=== PATIENT | female | born 1985 | race Caucasian/White ===

== ENCOUNTER → 2020-04-15 08:46 | Outpatient (BNVA) | payer MEDICAID, SELFPAY | PROVIDERS: PCP Internal Medicine; Visit Provider Dietitian, Registered | DX: Z76.89 Persons encountering health services in other specified circumstances (principal) ==

== ENCOUNTER 2020-04-29 06:42 | Outpatient (REF) | payer BC, OTHER, SELFPAY ==
[2020-04-29 08:33] LABS: MANUAL DIFF FLAG NO
[2020-04-29 08:55] LABS: Basophils Percent Auto 0.3 % (0-2); Eosinophils Absolute Auto 0.1 X10*3/uL (0.0-0.4); Hemoglobin 12.9 g/dl (12.0-16.0); Imm Gran Abs Auto 0.06 X10*3/uL (0.00-0.03); Imm Gran Pct Auto 0.7 % (0.0-0.4); Lymphocytes Absolute Auto 1.4 X10*3/uL (1.2-4.9); Lymphocytes Percent Auto 16.2 % (20-40); Mean Corpuscular HGB Conc 33.9 g/dl (31.0-35.0); Mean Corpuscular Volume 91.3 fL (80-98); Mean Platelet Volume 10.9 fL (9.4-12.3); Monocytes Absolute Auto 0.6 X10*3/uL (0.1-1.2); Monocytes Percent Auto 7.4 % (2-11); Neutrophils Absolute Auto 6.4 X10*3/uL (2.0-8.3); Neutrophils Percent Auto 74.4 % (45-73); Platelet Count 173 X10*3/uL (160-400); Red Blood Count 4.16 X10*6/uL (4.20-5.50); Red Cell Distribution Width 13.4 % (11.0-16.0); White Blood Count 8.6 X10*3/uL (4.8-10.8)
[2020-04-29 08:57] LABS: Glucose Urine UA NEG (NEG); Leukocyte Esterase Urine NEG (NEG); Nitrite Urine NEG (NEG); Urine Blood TRACE (NEG); Urine Ketones NEG (NEG); Urine Protein NEG (NEG-TRACE)
[2020-04-29 08:58] LABS: Appearance Urine CLEAR; Color Urine YELLOW
[2020-04-29 09:03] LABS: UACC CULT YES
[2020-04-29 09:04] LABS: Bacteria Urine 1+ /LPF; Renal Epithelial Cells Urine 1+ /LPF; Squamous Epithelial Cell Urine 3+ /LPF
[2020-04-29 09:38] LABS: Alanine Aminotransferase 16 U/L (0-31); Albumin Level 2.9 g/dL (3.5-5.0); Alkaline Phosphatase 51 U/L (39-117); Anion Gap 12 (12-20); Aspartate Amino Transferase 17 U/L (5-31); Bilirubin Total 0.3 mg/dL (0.0-1.0); Blood Urea Nitrogen 21 mg/dL (9-16); C Reactive Protein 0.42 mg/dL (< or = 0.50); Calcium 8.6 mg/dL (8.4-10.2); Carbon Dioxide 22 mmol/L (22-29); Chloride 108 mmol/L (96-108); Estimated Glomerular Filt Rate > 60; Glucose Fasting 69 mg/dL (60-99); Potassium 4.6 mmol/l (3.3-5.1); Sodium 137 mmol/L (135-145); Total Protein 5.7 g/dL (6.5-8.0)
[2020-04-29 09:42] LABS: Creatinine Urine 55.49 mg/dL; Microalbum/Creatinine Ratio Ur 263.1 ug/mg cr; Total Protein Urine Random 28 mg/dL (<12)
[2020-04-29 09:46] LABS: Creatinine Urine 54.89 mg/dL; Protein/Creatinine Ratio, Ur 0.49 (<0.2); Total Protein Urine Random 27 mg/dL (<12)
[2020-04-29 10:01] LABS: TSH reflex Free T4 5.98 mIU/mL (0.32-4.0)
[2020-04-29 10:35] LABS: Free T4 (Free Thyroxine) 0.96 ng/dL (0.71-1.85)
[2020-04-29 10:42] LABS: Erythrocyte Sedimentation Rate 16 MM/HR (0-20)
[2020-04-29 12:59] LABS: Phosphorus 4.5 mg/dL (2.7-4.5)
[2020-04-29 14:01] LABS: Renal w Reflex Lab Use Only Order verified
== END 2020-04-29 06:43 | disposition home or self-care (01) ==
LOC: HO.LAB 06:42
PROVIDERS: PCP Internal Medicine; Referring Provider Internal Medicine Nephrology; Visit Provider Internal Medicine
DX: R80.9 Proteinuria, unspecified (principal); N04.9 Nephrotic syndrome with unspecified morphologic changes; N18.1 Chronic kidney disease, stage 1; N17.9 Acute kidney failure, unspecified; M32.14 Glomerular disease in systemic lupus erythematosus
CPT/HCPCS: 36415; 80051; 80053; 81001; 81003; 82043; 82310; 82565; 84100; 84156; 84439; 84443; 84520; 85025; 85652; 86140; 87086

== ENCOUNTER → 2020-06-16 07:47 | Outpatient (BNVA) | payer SELFPAY | PROVIDERS: Visit Provider Dietitian, Registered | DX: Z76.89 Persons encountering health services in other specified circumstances (principal) ==

== ENCOUNTER 2020-07-06 11:47 | Outpatient (REF) | payer BC, OTHER, SELFPAY ==
[2020-07-06 13:19] LABS: Glucose Urine UA NEG (NEG); Leukocyte Esterase Urine NEG (NEG); Nitrite Urine NEG (NEG); Urine Blood 1+ (NEG); Urine Ketones NEG (NEG); Urine Protein 3+ MG/DL (NEG-TRACE)
[2020-07-06 13:21] LABS: Appearance Urine CLEAR; Color Urine YELLOW
[2020-07-06 13:37] LABS: Squamous Epithelial Cell Urine 1+ /LPF; WBC Urine 0-2 /HPF (0-4)
[2020-07-06 13:47] LABS: Creatinine Urine 92.42 mg/dL; Creatinine Urine 92.88 mg/dL
[2020-07-06 14:15] LABS: Protein/Creatinine Ratio, Ur 4.96 (<0.2); Total Protein Urine Random 458 mg/dL (<12)
[2020-07-06 14:16] LABS: Microalbum/Creatinine Ratio Ur 3052.3 ug/mg cr
[2020-07-07 12:37] LABS: Anti DNA DS Antibody 3 IU/mL
[2020-07-07 13:27] LABS: Complement C3 79 mg/dL (83-193)
[2020-07-08 22:27] LABS: Anti Nuclear Antibody Screen POSITIVE (NEGATIVE)
== END 2020-07-06 11:48 | disposition home or self-care (01) ==
LOC: HO.LAB 11:47
PROVIDERS: PCP Internal Medicine; Visit Provider Internal Medicine Nephrology
DX: N18.1 Chronic kidney disease, stage 1 (principal); N17.9 Acute kidney failure, unspecified; R80.9 Proteinuria, unspecified; N04.9 Nephrotic syndrome with unspecified morphologic changes; M32.14 Glomerular disease in systemic lupus erythematosus
CPT/HCPCS: 36415; 81001; 82043; 84156; 86038; 86039; 86160; 86225

== ENCOUNTER → 2020-07-08 13:08 | Outpatient (BNVA) | payer OTHER, SELFPAY | PROVIDERS: PCP Internal Medicine; Referring Provider Internal Medicine; Visit Provider Student in an Organized Health Care Education/Training Program | DX: Z76.89 Persons encountering health services in other specified circumstances (principal) ==

== ENCOUNTER → 2020-08-06 08:10 | Outpatient (BNVA) | payer OTHER, SELFPAY | PROVIDERS: PCP Internal Medicine; Visit Provider Dietitian, Registered ==

== ENCOUNTER 2020-08-08 08:35 | Outpatient (REF) | payer OTHER, SELFPAY ==
[2020-08-08 09:32] LABS: Glucose Urine UA NEG (NEG); Leukocyte Esterase Urine NEG (NEG); Nitrite Urine NEG (NEG); PH 6.5 (5.0-8.0); Specific Gravity - Urine 1.025 (1.005-1.025); Urine Blood 3+ (NEG); Urine Ketones NEG (NEG); Urine Protein 2+ MG/DL (NEG-TRACE)
[2020-08-08 10:03] LABS: Creatinine Urine 52.98 mg/dL
[2020-08-08 10:19] LABS: Appearance Urine HAZY; Color Urine YELLOW
[2020-08-08 10:22] LABS: RBC Urine 30-49 /HPF (0); Squamous Epithelial Cell Urine 2+ /LPF; WBC Urine 0-2 /HPF (0-4)
[2020-08-08 10:37] LABS: Total Protein Urine Random 401 mg/dL (<12)
== END 2020-08-08 08:36 | disposition home or self-care (01) ==
LOC: HO.LAB 08:35
PROVIDERS: PCP Internal Medicine; Visit Provider Internal Medicine Nephrology
DX: R80.9 Proteinuria, unspecified (principal); N04.9 Nephrotic syndrome with unspecified morphologic changes; N18.1 Chronic kidney disease, stage 1; M32.14 Glomerular disease in systemic lupus erythematosus; N17.9 Acute kidney failure, unspecified
CPT/HCPCS: 81001; 82043; 84156

== ENCOUNTER → 2020-08-12 08:09 | Outpatient (BNVA) | payer OTHER, SELFPAY | PROVIDERS: PCP Internal Medicine; Visit Provider Dietitian, Registered ==

== ENCOUNTER 2020-09-03 07:03 | Outpatient (REF) | payer OTHER, SELFPAY ==
[2020-09-03 07:37] LABS: MANUAL DIFF FLAG NO
[2020-09-03 07:41] LABS: Basophils Percent Auto 0.4 % (0-2); Eosinophils Absolute Auto 0.2 X10*3/uL (0.0-0.4); Eosinophils Percent Auto 4.4 % (0-4); Hematocrit 37.5 % (37-47); Hemoglobin 12.9 g/dl (12.0-16.0); Imm Gran Abs Auto 0.02 X10*3/uL (0.00-0.03); Imm Gran Pct Auto 0.4 % (0.0-0.4); Lymphocytes Absolute Auto 1.1 X10*3/uL (1.2-4.9); Mean Corpuscular HGB Conc 34.4 g/dl (31.0-35.0); Mean Corpuscular Hemoglobin 31.6 pg (27.0-33.0); Mean Corpuscular Volume 91.9 fL (80-98); Mean Platelet Volume 10.2 fL (9.4-12.3); Monocytes Absolute Auto 0.4 X10*3/uL (0.1-1.2); Monocytes Percent Auto 8.8 % (2-11); Neutrophils Absolute Auto 2.9 X10*3/uL (2.0-8.3); Platelet Count 228 X10*3/uL (160-400); Red Blood Count 4.08 X10*6/uL (4.20-5.50); Red Cell Distribution Width 12.4 % (11.0-16.0); White Blood Count 4.6 X10*3/uL (4.8-10.8)
[2020-09-03 08:03] LABS: Glucose Urine UA NEG (NEG); Leukocyte Esterase Urine NEG (NEG); Nitrite Urine NEG (NEG); Specific Gravity - Urine 1.025 (1.005-1.025); Urine Blood 1+ (NEG); Urine Ketones NEG (NEG); Urine Protein 2+ MG/DL (NEG-TRACE)
[2020-09-03 08:09] LABS: Appearance Urine HAZY; Color Urine YELLOW
[2020-09-03 08:12] LABS: Albumin Level 3.2 g/dL (3.5-5.0); Anion Gap 11 (12-20); Blood Urea Nitrogen 28 mg/dL (9-16); Calcium 8.7 mg/dL (8.4-10.2); Carbon Dioxide 24 mmol/L (22-29); Chloride 108 mmol/L (96-108); Estimated Glomerular Filt Rate 51; Potassium 4.3 mmol/L (3.3-5.1); Sodium 139 mmol/L (135-145)
[2020-09-03 08:23] LABS: Bacteria Urine TRACE /LPF; Mucus Urine 1+ /LPF; RBC Urine 0-2 /HPF (0); Squamous Epithelial Cell Urine 3+ /LPF
[2020-09-03 09:17] LABS: Protein/Creatinine Ratio, Ur 1.15 (<0.2); Total Protein Urine Random 153 mg/dL (<12)
[2020-09-03 09:32] LABS: Microalbum/Creatinine Ratio Ur 779.9 ug/mg cr
== END 2020-09-03 07:04 | disposition home or self-care (01) ==
LOC: HO.LAB 07:03
PROVIDERS: PCP Internal Medicine; Visit Provider Internal Medicine Nephrology
DX: O14.93 Unspecified pre-eclampsia, third trimester (principal); O12.13 Gestational proteinuria, third trimester
CPT/HCPCS: 36415; 80051; 81001; 82040; 82043; 82310; 82565; 84156; 84520; 85025

== ENCOUNTER → 2020-10-14 08:07 | Outpatient (BNVA) | payer OTHER, SELFPAY | PROVIDERS: PCP Internal Medicine; Visit Provider Dietitian, Registered | DX: E66.01 Morbid (severe) obesity due to excess calories (principal) | CPT/HCPCS: 97803 ==

== ENCOUNTER → 2020-10-28 08:49 | Outpatient (BNVA) | payer OTHER, SELFPAY | PROVIDERS: PCP Internal Medicine; Visit Provider Dietitian, Registered | DX: E66.9 Obesity, unspecified (principal) | CPT/HCPCS: 97803 ==

== ENCOUNTER 2020-10-29 14:36 | Outpatient (REF) | payer OTHER, SELFPAY ==
[2020-10-29 16:25] LABS: MANUAL DIFF FLAG NO
[2020-10-29 16:29] LABS: Basophils Percent Auto 0.5 % (0-2); Eosinophils Absolute Auto 0.1 X10*3/uL (0.0-0.4); Eosinophils Percent Auto 1.4 % (0-4); Hematocrit 39.7 % (37-47); Imm Gran Abs Auto 0.01 X10*3/uL (0.00-0.03); Imm Gran Pct Auto 0.2 % (0.0-0.4); Lymphocytes Absolute Auto 1.2 X10*3/uL (1.2-4.9); Lymphocytes Percent Auto 19.8 % (20-40); Mean Corpuscular HGB Conc 32.7 g/dl (31.0-35.0); Mean Corpuscular Hemoglobin 29.4 pg (27.0-33.0); Mean Corpuscular Volume 89.8 fL (80-98); Mean Platelet Volume 10.9 fL (9.4-12.3); Monocytes Absolute Auto 0.4 X10*3/uL (0.1-1.2); Neutrophils Absolute Auto 4.4 X10*3/uL (2.0-8.3); Neutrophils Percent Auto 71.1 % (45-73); Platelet Count 241 X10*3/uL (160-400); Red Blood Count 4.42 X10*6/uL (4.20-5.50); Red Cell Distribution Width 12.6 % (11.0-16.0); White Blood Count 6.3 X10*3/uL (4.8-10.8)
[2020-10-29 16:54] LABS: Alanine Aminotransferase 24 U/L (0-31); Albumin Level 3.4 g/dL (3.5-5.0); Alkaline Phosphatase 87 U/L (39-117); Anion Gap 13 (12-20); Aspartate Amino Transferase 20 U/L (5-31); Bilirubin Total 0.4 mg/dL (0.0-1.0); Blood Urea Nitrogen 27 mg/dL (9-16); Calcium 8.8 mg/dL (8.4-10.2); Carbon Dioxide 24 mmol/L (22-29); Chloride 109 mmol/L (96-108); Estimated Glomerular Filt Rate 51; Glucose Random 72 mg/dL (60-115); Potassium 4.8 mmol/L (3.3-5.1); Sodium 141 mmol/L (135-145); Total Protein 6.4 g/dL (6.5-8.0)
[2020-10-29 17:36] LABS: Erythrocyte Sedimentation Rate 26 MM/HR (0-20)
[2020-10-29 18:18] LABS: Glucose Urine UA NEG (NEG); Leukocyte Esterase Urine NEG (NEG); Nitrite Urine NEG (NEG); Specific Gravity - Urine 1.025 (1.005-1.025); Urine Blood 1+ (NEG); Urine Ketones NEG (NEG); Urine Protein 2+ MG/DL (NEG-TRACE)
[2020-10-29 18:23] LABS: Appearance Urine CLEAR; Color Urine YELLOW
[2020-10-29 18:31] LABS: Bacteria Urine TRACE /LPF; Squamous Epithelial Cell Urine 1+ /LPF
[2020-10-29 19:28] LABS: Creatinine Urine 68.85 mg/dL; Protein/Creatinine Ratio, Ur 3.91 (<0.2); Total Protein Urine Random 269 mg/dL (<12)
[2020-10-30 12:33] LABS: Anti DNA DS Antibody 6 IU/mL
[2020-10-30 13:22] LABS: Complement C3 67 mg/dL (83-193)
== END 2020-10-29 14:37 | disposition home or self-care (01) ==
LOC: HO.LAB 14:36
PROVIDERS: PCP Internal Medicine; Visit Provider Student in an Organized Health Care Education/Training Program
DX: M32.9 Systemic lupus erythematosus, unspecified (principal)
CPT/HCPCS: 36415; 80053; 81001; 84156; 85025; 85652; 86140; 86160; 86225; 99212

== ENCOUNTER → 2020-11-19 08:08 | Outpatient (BNVA) | payer OTHER, SELFPAY | PROVIDERS: PCP Internal Medicine; Visit Provider Dietitian, Registered | DX: E66.01 Morbid (severe) obesity due to excess calories (principal) | CPT/HCPCS: 97803 ==

== ENCOUNTER 2020-12-08 07:35 | Outpatient (REF) | payer OTHER, SELFPAY ==
--- NOTE | ~2020-12-08 | XR_ITS ---
EXAMINATION: KNEE X-RAY CLINICAL INFORMATION: Pain COMPARISON: Previous x-ray April 2018 TECHNIQUE: Standing view of both knees and lateral and sunrise view of the left knee FINDINGS: Left: Bone alignment is normal. No fracture or dislocation is seen. There is arthritis at the patellofemoral and femoral tibial joints with joint space narrowing and osteophyte formation. There is a large joint effusion. Standing AP view of the right knee demonstrates degenerative change with joint space narrowing and osteophyte formation at the lateral femoral tibial joint XR/XR knee standing BI IMPRESSION: Left knee: Tricompartment arthritis and joint effusion. Right knee: Degenerative changes at the lateral femoral tibial joint.
--- NOTE | ~2020-12-08 | XR_ITS ---
EXAMINATION: KNEE X-RAY CLINICAL INFORMATION: Pain COMPARISON: Previous x-ray April 2018 TECHNIQUE: Standing view of both knees and lateral and sunrise view of the left knee FINDINGS: Left: Bone alignment is normal. No fracture or dislocation is seen. There is arthritis at the patellofemoral and femoral tibial joints with joint space narrowing and osteophyte formation. There is a large joint effusion. Standing AP view of the right knee demonstrates degenerative change with joint space narrowing and osteophyte formation at the lateral femoral tibial joint XR/XR knee LT 2V IMPRESSION: Left knee: Tricompartment arthritis and joint effusion. Right knee: Degenerative changes at the lateral femoral tibial joint.
== END 2020-12-08 07:36 | disposition home or self-care (01) ==
LOC: HO.HOSX 07:35
PROVIDERS: Visit Provider Orthopaedic Surgery
DX: M17.12 Unilateral primary osteoarthritis, left knee (principal); M25.561 Pain in right knee
CPT/HCPCS: 20610; 73560; 73565; 99212; J1040

== ENCOUNTER 2020-12-17 08:33 | Outpatient (REF) | payer OTHER, SELFPAY ==
[2020-12-17 11:32] LABS: MANUAL DIFF FLAG NO
[2020-12-17 11:36] LABS: Basophils Percent Auto 0.7 % (0-2); Eosinophils Absolute Auto 0.1 X10*3/uL (0.0-0.4); Eosinophils Percent Auto 1.8 % (0-4); Hematocrit 41.9 % (37-47); Hemoglobin 13.6 g/dl (12.0-16.0); Lymphocytes Absolute Auto 1.1 X10*3/uL (1.2-4.9); Lymphocytes Percent Auto 24.4 % (20-40); Mean Corpuscular HGB Conc 32.5 g/dl (31.0-35.0); Mean Corpuscular Hemoglobin 28.2 pg (27.0-33.0); Mean Corpuscular Volume 86.7 fL (80-98); Mean Platelet Volume 10.5 fL (9.4-12.3); Monocytes Absolute Auto 0.4 X10*3/uL (0.1-1.2); Monocytes Percent Auto 8.1 % (2-11); Neutrophils Absolute Auto 2.9 X10*3/uL (2.0-8.3); Platelet Count 237 X10*3/uL (160-400); Red Blood Count 4.83 X10*6/uL (4.20-5.50); Red Cell Distribution Width 13.5 % (11.0-16.0); White Blood Count 4.4 X10*3/uL (4.8-10.8)
[2020-12-17 12:25] LABS: Estimated Average Glucose 91 mg/dL; Hemoglobin A1c % 4.8 %
[2020-12-17 12:30] LABS: Alanine Aminotransferase 19 U/L (0-31); Albumin Level 3.6 g/dL (3.5-5.0); Alkaline Phosphatase 98 U/L (39-117); Anion Gap 11 (12-20); Aspartate Amino Transferase 19 U/L (5-31); Bilirubin Total 0.4 mg/dL (0.0-1.0); Blood Urea Nitrogen 18 mg/dL (9-16); C Reactive Protein 0.11 mg/dL (< or = 0.50); Calcium 9.1 mg/dL (8.4-10.2); Carbon Dioxide 27 mmol/L (22-29); Chloride 106 mmol/L (96-108); Cholesterol 186 mg/dL; Estimated Glomerular Filt Rate 55; Glucose Fasting 72 mg/dL (60-99); HDL Cholesterol 46 mg/dL; Iron 80 mcg/dL (30-160); LDL Cholesterol Calculated 109 mg/dl; Percent Iron Saturation 23 % (15-50); Potassium 4.3 mmol/L (3.3-5.1); Sodium 140 mmol/L (135-145); Total Iron Binding Capacity 341 mcg/dL (228-428); Total Protein 6.6 g/dL (6.5-8.0); Triglycerides 155 mg/dL; Unsaturated Iron Binding 261 ug/dL
[2020-12-17 12:32] LABS: TSH reflex Free T4 3.97 uIU/mL (0.32-4.0); Vitamin D 25-OH Total 23.4 ng/mL (>30)
[2020-12-17 12:33] LABS: TSH reflex Free T4 4.11 uIU/mL (0.32-4.0)
[2020-12-17 12:35] LABS: Anion Gap 12 (12-20); Blood Urea Nitrogen 18 mg/dL (9-16); Calcium 9.1 mg/dL (8.4-10.2); Carbon Dioxide 26 mmol/L (22-29); Chloride 106 mmol/L (96-108); Estimated Glomerular Filt Rate 54; Potassium 4.3 mmol/L (3.3-5.1); Sodium 140 mmol/L (135-145)
[2020-12-17 12:36] LABS: Alanine Aminotransferase 19 U/L (0-31); Albumin Level 3.6 g/dL (3.5-5.0); Alkaline Phosphatase 100 U/L (39-117); Anion Gap 10 (12-20); Aspartate Amino Transferase 19 U/L (5-31); Bilirubin Total 0.4 mg/dL (0.0-1.0); Blood Urea Nitrogen 18 mg/dL (9-16); Calcium 9.1 mg/dL (8.4-10.2); Carbon Dioxide 28 mmol/L (22-29); Chloride 106 mmol/L (96-108); Cholesterol 187 mg/dL; Estimated Glomerular Filt Rate 55; Glucose Fasting 71 mg/dL (60-99); HDL Cholesterol 46 mg/dL; LDL Cholesterol Calculated 110 mg/dl; Potassium 4.3 mmol/L (3.3-5.1); Sodium 140 mmol/L (135-145); Total Protein 6.7 g/dL (6.5-8.0); Triglycerides 158 mg/dL
[2020-12-17 12:42] LABS: Creatinine Urine 22.52 mg/dL; Protein/Creatinine Ratio, Ur 2.71 (<0.2); Total Protein Urine Random 61 mg/dL (<12)
[2020-12-17 12:53] LABS: Folate 18.8 ng/mL (> or = 4.0); Vitamin B12 408 pg/mL (200-900)
[2020-12-17 12:58] LABS: Microalbum/Creatinine Ratio Ur 2109.2 ug/mg cr
[2020-12-17 13:09] LABS: Ferritin 7 ng/mL (10-122); Free T4 (Free Thyroxine) 0.94 ng/dL (0.71-1.85)
[2020-12-18 15:57] LABS: Calcium (PTHI) 9.2 mg/dL (8.6-10.2); PTHI 100 pg/mL (14-64)
[2020-12-18 19:11] LABS: Insulin Level Total 3.9 uIU/mL
[2020-12-21 06:12] LABS: Vitamin B1 11 nmol/L (8-30)
[2020-12-21 17:06] LABS: Zinc 56 mcg/dL (60-130)
[2020-12-23 01:22] LABS: Vitamin A 83 mcg/dL (38-98)
== END 2020-12-17 08:34 | disposition home or self-care (01) ==
LOC: HO.LAB 08:33
PROVIDERS: Absent Provider Internal Medicine Nephrology; PCP Internal Medicine; Referring Provider Internal Medicine; Visit Provider Physician Assistant
DX: K91.2 Postsurgical malabsorption, not elsewhere classified (principal); E66.9 Obesity, unspecified; Z68.38 Body mass index [BMI] 38.0-38.9, adult; R80.1 Persistent proteinuria, unspecified; I10 Essential (primary) hypertension; Z87.59 Personal history of other complications of pregnancy, childbirth and the puerperium; Z98.84 Bariatric surgery status; Z90.3 Acquired absence of stomach [part of]
CPT/HCPCS: 36415; 80051; 80053; 80061; 82043; 82306; 82310; 82565; 82607; 82728; 82746; 83036; 83525; 83540; 83970; 84156; 84425; 84439; 84443; 84520; 84590; 84630; 85025; 86140; 99212

== ENCOUNTER 2020-12-31 10:35 | Outpatient (REF) | payer OTHER, SELFPAY ==
[2020-12-31 11:17] LABS: MANUAL DIFF FLAG NO
[2020-12-31 11:42] LABS: Basophils Percent Auto 0.5 % (0-2); Eosinophils Absolute Auto 0.1 X10*3/uL (0.0-0.4); Eosinophils Percent Auto 2.4 % (0-4); Hematocrit 40.1 % (37-47); Imm Gran Abs Auto 0.01 X10*3/uL (0.00-0.03); Imm Gran Pct Auto 0.3 % (0.0-0.4); Lymphocytes Percent Auto 26.3 % (20-40); Mean Corpuscular HGB Conc 32.4 g/dl (31.0-35.0); Mean Corpuscular Hemoglobin 27.7 pg (27.0-33.0); Mean Corpuscular Volume 85.5 fL (80-98); Mean Platelet Volume 11.3 fL (9.4-12.3); Monocytes Absolute Auto 0.3 X10*3/uL (0.1-1.2); Monocytes Percent Auto 7.4 % (2-11); Neutrophils Absolute Auto 2.4 X10*3/uL (2.0-8.3); Neutrophils Percent Auto 63.1 % (45-73); Platelet Count 230 X10*3/uL (160-400); Red Blood Count 4.69 X10*6/uL (4.20-5.50); Red Cell Distribution Width 13.6 % (11.0-16.0); White Blood Count 3.8 X10*3/uL (4.8-10.8)
[2020-12-31 11:44] LABS: Glucose Urine UA NEG (NEG); Leukocyte Esterase Urine NEG (NEG); Nitrite Urine NEG (NEG); Specific Gravity - Urine 1.015 (1.005-1.025); Urine Blood 1+ (NEG); Urine Ketones NEG (NEG); Urine Protein 2+ MG/DL (NEG-TRACE)
[2020-12-31 11:45] LABS: Appearance Urine CLEAR; Color Urine YELLOW
[2020-12-31 11:51] LABS: Alanine Aminotransferase 17 U/L (0-31); Albumin Level 3.4 g/dL (3.5-5.0); Alkaline Phosphatase 92 U/L (39-117); Anion Gap 9 (12-20); Aspartate Amino Transferase 18 U/L (5-31); Bilirubin Total 0.4 mg/dL (0.0-1.0); Blood Urea Nitrogen 27 mg/dL (9-16); Calcium 8.9 mg/dL (8.4-10.2); Carbon Dioxide 25 mmol/L (22-29); Chloride 110 mmol/L (96-108); Cholesterol 185 mg/dL; Estimated Glomerular Filt Rate 56; Glucose Fasting 83 mg/dL (60-99); HDL Cholesterol 50 mg/dL; LDL Cholesterol Calculated 117 mg/dl; Potassium 4.6 mmol/L (3.3-5.1); Sodium 139 mmol/L (135-145); Total Protein 6.1 g/dL (6.5-8.0); Triglycerides 93 mg/dL
[2020-12-31 11:58] LABS: Bacteria Urine TRACE /LPF; Squamous Epithelial Cell Urine 2+ /LPF
[2020-12-31 12:03] LABS: Thyroid Stimulating Hormone 3.12 uIU/mL (0.32-4.0)
[2021-01-08 14:51] LABS: Vitamin D 25-OH, D2 <4 ng/mL; Vitamin D 25-OH, D3 24 ng/mL; Vitamin D 25-OH, Total 24 ng/mL (30-100)
== END 2020-12-31 10:36 | disposition home or self-care (01) ==
LOC: HO.LAB 10:35
PROVIDERS: Student in an Organized Health Care Education/Training Program; PCP Internal Medicine; Visit Provider Internal Medicine
DX: E55.9 Vitamin D deficiency, unspecified (principal); E06.3 Autoimmune thyroiditis; E78.5 Hyperlipidemia, unspecified; M32.9 Systemic lupus erythematosus, unspecified; D64.9 Anemia, unspecified
CPT/HCPCS: 36415; 80053; 80061; 81001; 82306; 84443; 85025

== ENCOUNTER 2021-02-05 11:32 | Outpatient (REF) | payer OTHER, SELFPAY ==
[2021-02-05 13:01] LABS: Vitamin D 25-OH Total 23.8 ng/mL (>30)
[2021-02-05 13:57] LABS: Folate > 20.0 ng/mL (> or = 4.0); Vitamin B12 777 pg/mL (200-900)
[2021-02-05 14:13] LABS: Glucose Urine UA NEG (NEG); Leukocyte Esterase Urine NEG (NEG); Nitrite Urine NEG (NEG); Urine Blood TRACE (NEG); Urine Ketones NEG (NEG); Urine Protein 2+ MG/DL (NEG-TRACE)
[2021-02-05 14:17] LABS: Appearance Urine CLEAR; Color Urine YELLOW
[2021-02-05 14:36] LABS: Squamous Epithelial Cell Urine TRACE /LPF; WBC Urine 0-2 /HPF (0-4)
[2021-02-05 14:46] LABS: Creatinine Urine 56.74 mg/dL; Protein/Creatinine Ratio, Ur 1.96 (<0.2); Total Protein Urine Random 111 mg/dL (<12)
[2021-02-11 00:56] LABS: Zinc 86 mcg/dL (60-130)
== END 2021-02-05 11:33 | disposition home or self-care (01) ==
LOC: HO.LAB 11:32
PROVIDERS: Absent Provider Physician Assistant; PCP Internal Medicine; Referring Provider Internal Medicine Nephrology; Visit Provider Student in an Organized Health Care Education/Training Program
DX: R80.1 Persistent proteinuria, unspecified (principal); E56.9 Vitamin deficiency, unspecified
CPT/HCPCS: 36415; 81001; 82306; 82607; 82746; 84156; 84630

== ENCOUNTER → 2021-02-26 11:05 | Outpatient (BNVA) | payer OTHER, SELFPAY | PROVIDERS: PCP Internal Medicine; Referring Provider Internal Medicine; Visit Provider Dietitian, Registered | DX: E66.01 Morbid (severe) obesity due to excess calories (principal); Z68.41 Body mass index [BMI] 40.0-44.9, adult; Z71.3 Dietary counseling and surveillance; Z98.84 Bariatric surgery status | CPT/HCPCS: 97803 ==

== ENCOUNTER → 2021-03-24 08:33 | Outpatient (BNVA) | payer OTHER, SELFPAY | PROVIDERS: Visit Provider Dietitian, Registered | DX: E66.9 Obesity, unspecified (principal); Z68.38 Body mass index [BMI] 38.0-38.9, adult | CPT/HCPCS: 97803 ==

== ENCOUNTER → 2021-03-25 09:32 | Outpatient (BNVA) | payer MEDICAID, SELFPAY | PROVIDERS: Visit Provider Physician Assistant | DX: M17.12 Unilateral primary osteoarthritis, left knee (principal) | CPT/HCPCS: 99212 ==

== ENCOUNTER → 2021-04-06 10:29 | Outpatient (BNVA) | payer OTHER, SELFPAY | PROVIDERS: Referring Provider Internal Medicine; Visit Provider Physician Assistant Surgical | DX: E66.01 Morbid (severe) obesity due to excess calories (principal); Z68.41 Body mass index [BMI] 40.0-44.9, adult | CPT/HCPCS: 99212 ==

== ENCOUNTER → 2021-06-28 09:24 | Outpatient (BNVA) | payer OTHER, SELFPAY | PROVIDERS: PCP Internal Medicine; Referring Provider Internal Medicine; Visit Provider Physician Assistant Surgical | DX: E66.01 Morbid (severe) obesity due to excess calories (principal); Z68.41 Body mass index [BMI] 40.0-44.9, adult | CPT/HCPCS: 99212 ==

== ENCOUNTER 2021-07-02 08:45 | Emergency (ER) | payer OTHER, SELFPAY ==
[2021-07-02 08:56] VITALS: BP 131/83; PULSE 70; RESP 17; TEMP 37.1; O2SAT 99; BMI 39.4
--- NOTE | 2021-07-02 09:35 | ED.EXTPRO ---
HPI - Extremity Problem General Chief complaint: Extremity Injury, Upper Stated complaint: pain in both hands Time Seen by Provider: 07/02/21 09:18 Source: patient Mode of arrival: ambulatory Limitations: no limitations History of Present Illness HPI Narrative: 35 yo female with history of SLE on plaquenil, osteoathritis, CKD, depression, obesity, HTN Complaints of bilateral hand pain. Patient tells me that for the last 3 days she has had pain in her wrist which radiates down to her 4th and 5th digit which is worsened at night time. Patient denies any injury or trauma. She tells me 3 days ago her lupus doctor increased her dose of Plaquenil from 200 mg daily to 400 mg daily. This was due to persistent rash at the patient had. She tells me she has had a history of osteoarthritis which she tells me was secondary to her underlying lupus. Patient denies fevers, chills, swelling or redness of the joints. Related Data Home Medications Medication Instructions Recorded Confirmed furosemide 20 mg tablet 20 mg PO BID 12/17/20 06/28/21 valsartan 80 mg tablet 80 mg PO DAILY 01/21/21 06/28/21 Previous Rx's Medication Instructions Recorded hydroxychloroquine 200 mg tablet 200 mg PO BID #60 tab 10/29/20 (Plaquenil) calcium citrate 250 mg 2 tab PO BID #120 tab 12/17/20 calcium-vitamin D3 5 mcg (200 unit) tablet fluticasone propionate 50 1 spray INTRANASAL DAILY 30 Days 01/21/21 mcg/actuation nasal #150 ml spray,suspension (Flonase Allergy Relief) cholecalciferol (vitamin D3) 50 50 mcg PO DAILY #30 cap 02/08/21 mcg (2,000 unit) capsule albuterol sulfate 90 mcg/actuation 2 puff PO Q4-6H PRN #8.5 g 02/16/21 aerosol inhaler (ProAir HFA) sertraline 50 mg tablet 50 mg PO DAILY 90 Days #90 tab 04/05/21 sertraline 25 mg tablet 25 mg PO DAILY #90 tab 04/28/21 sumatriptan succinate 50 mg tablet 50 mg PO Q2-4H PRN #9 tab 04/28/21 acetaminophen 325 mg capsule 650 mg PO Q4H PRN #30 cap 07/02/21 (Tylenol) prednisone 20 mg tablet 40 mg PO DAILY #10 tab 07/02/21 Allergies Allergy/AdvReac Type Severity Reaction Status Date / Time metformin [METFORMIN] Allergy Intermediate INFLAMMED Verified 07/02/21 08:58 GUMS, red gums, redness of gums Pt states no known food Allergy Intermediate unknow Uncoded 06/28/21 09:40 allerg Review of Systems Review of Systems: Yes all other systems are reviewed and are negative Constitutional: Constitutional: Reports no additional constitutional complaints, Denies body ache(s), Denies chills, Denies fever(s), Denies headache(s) and Denies weakness Eyes: Eyes: Reports no additional eye complaints and Denies change in vision ENT: Reports system reviewed and no additional complaints, except as documented, Denies dizziness, Denies headache(s), Denies nasal congestion, Denies nasal discharge and Denies neck pain Cardiovascular: Cardiovascular: Reports no additional cardiovascular complaints, Denies chest pain, Denies leg edema and Denies dyspnea Respiratory: Respiratory: Reports no additional respiratory complaints, Denies cough and Denies dyspnea Gastrointestinal: Gastrointestinal: Reports no additional gastrointestinal complaints, Denies abdominal pain, Denies diarrhea, Denies nausea and Denies vomiting Genitourinary: Genitourinary: Reports no additional female genitourinary complaints and Denies urinary incontinence Musculoskeletal: Musculoskeletal: Reports no additional musculoskeletal complaints, Denies back pain, Reports arthralgias, Denies joint swelling, Denies neck pain, Denies numbness and Denies tingling Integumentary/Breasts: Skin/Breast: Reports system reviewed and no additional complaints, except as docu and Denies rash Neurologic: Reports system reviewed and no additional complaints, except as documented, Denies Abnormal speech present, Denies dizziness, Denies headache(s), Denies numbness, Denies tingling and Denies weakness FORMERLY [facility], [facility] Past Medical History Attestation statement: The following information was validated with the patient. Source: old records reviewed and nursing notes reviewed Medical History Autoimmune thyroiditis BMI 38.0-38.9,adult Depression Hypertension Intestinal malabsorption following gastrectomy Knee pain Lupus Mild recurrent major depression Morbid obesity with BMI of 40.0-44.9, adult Obesity (BMI 30-39.9) Preeclampsia Proteinuria SLE (systemic lupus erythematosus related syndrome) Vitamin D deficiency Surgical History History of open reduction and internal fixation (ORIF) procedure History of sleeve gastrectomy Status post biopsy of kidney Family History Family History Father Asthma Mother No problems noted. Brother No problems noted. Brother No problems noted. Sister No problems noted. Social History Social History Housing: Apartment Alcohol intake: never Patient Tobacco Use Status: Never used Tobacco e-Cigarette/Vaping Use: Never Used Second Hand Smoke Exposure: No Advance Directives: No Advance Directives Information Provided: No Patient : No service: No Current occupational status: unemployed Current occupational exposures/hazards: No Physical Exam Vital Signs: Vital Signs: Last Vital Signs Temp 98.7 F 07/02/21 08:56 Pulse 70 07/02/21 08:56 Resp 17 07/02/21 08:56 BP 131/83 07/02/21 08:56 Pulse Ox 99 07/02/21 08:56 BMI result Body Mass Index 39.4 Const: General: cooperative, healthy appearing, comfortable and no acute distress Orientation/consciousness: patient oriented x3 Limitations: no limitations HENMT: Head: Yes normal to inspection Ears: hearing grossly normal bilaterally and TM's normal bilaterally General nose exam: Normal external nose present Face and sinus: Yes normal facial exam Mouth: Normal oral and palatal mucosa present Throat: Yes posterior oropharynx normal Eyes: General: appearance normal, both eyes and all related structures Pupils: Equal, round and reactive pupils present Neck: Neck: Yes normal visual inspection, Yes full ROM, Yes no lymphadenopathy and Yes no meningeal signs Chest: Chest palpation & inspection: normal inspection of the chest Resp: Effort & Inspection: normal respiratory effort Auscultation: clear to auscultation bilaterally Cardio: Rate: regular rate Rhythm: regular rhythm Peripheral pulses: Peripheral pulses 2+ throughout GI: Inspection: Yes normal to inspection Palpation (GI): Soft to palpation and nontender Auscultation: normal bowel sounds Back/Spine/Pelvis: Thoracic/Lumbar Spine: thoracic and lumbar spine normal to inspection Skin: General skin exam: no rashes or lesions noted Neuro: General: patient oriented x3, no meningeal signs, no focal motor deficits and normal sensation to monofilament Cranial nerves: Yes Equal, round and reactive pupils present Cognition (Neuro): normal cognition Speech: No Abnormal speech present Gait exam (Neuro): Normal gait present Motor exam (neuro): 5/5 motor strength present throughout Extrem: Other: +phalen and tinel sign. Patient reports pain over bilateral wrists with ROM. ROM is complete with no limitation. No redness or swelling. Hand normal in appearance with no swelling, redness, Tenderness with movement of 4th and 5th digits. ROM is complete with no limitation. General: Yes normal to inspection Course Course Course Narrative: 35-year-old female with a history of lupus on Plaquenil, inflammatory arthritis here with reports of bilateral hand and wrist pain for 3 days with no known injury or trauma. On exam the patient has some component of carpal tunnel syndrome. Additionally she has underlying history of inflammatory arthritis which may be contributing to her symptoms as well. There is no obvious redness, warmth or swelling. There is full range of motion with no injury so x-rays are not warranted. Patient does which is a history of underlying chronic kidney disease. She therefore avoids NSAIDs. Recommend Tylenol, prednisone course and follow-up outpatient with her purchasing administrator. Reviewed worrisome signs and symptoms of when to return to the emergency department. Comfortable discharge home. MDM - Extremity (Nontraumatic) Medical Records Attestation: I reviewed the patient's medical records. Lab Data Attestation: I reviewed the patient's lab results. Discharge Plan Discharge Clinical Impression: Osteoarthritis, Acute carpal tunnel syndrome Patient Disposition: Home, Self-Care Instructions: Osteoarthritis (ED), Carpal Tunnel Surgery (DC) Additional Instructions: Use wrist splints for comfort Take the prednisone daily with food Call your purchasing administrator monday morning for a follow-up Prescriptions: New acetaminophen [Tylenol] 325 mg capsule 650 mg PO Q4H PRN (Reason: pain) Qty: 30 RF: 0 prednisone 20 mg tablet 40 mg PO DAILY Qty: 10 RF: 0 No Action cholecalciferol (vitamin D3) 50 mcg (2,000 unit) capsule 50 mcg PO DAILY Qty: 30 RF: 2 albuterol sulfate [ProAir HFA] 90 mcg/actuation HFA aerosol inhaler 2 puff PO Q4-6H PRN (Reason: for wheezing) Qty: 8.5 RF: 0 sertraline 25 mg tablet 25 mg PO DAILY Qty: 90 RF: 0 sumatriptan succinate 50 mg tablet 50 mg PO Q2-4H PRN (Reason: for migraine) Qty: 9 RF: 0 valsartan 80 mg tablet 80 mg PO DAILY RF: 0 fluticasone propionate [Flonase Allergy Relief] 50 mcg/actuation spray,suspension 1 spray intranasal DAILY 30 Days Qty: 150 RF: 0 sertraline 50 mg tablet 50 mg PO DAILY 90 Days Qty: 90 RF: 1 hydroxychloroquine [Plaquenil] 200 mg tablet 200 mg PO BID Qty: 60 RF: 3 furosemide 20 mg tablet 20 mg PO BID RF: 0 calcium citrate-vitamin D3 250 mg-5 mcg (200 unit) tablet 2 tab PO BID Qty: 120 RF: 11 Referrals: Delores Mancia MD [Primary Care Provider] - 2 days Interventions: ED Discharge Assessment Last Done: 07/02/21 09:46 Discharge Date/Time: 07/02/21 09:46
== END 2021-07-02 09:46 | disposition home or self-care (01) ==
PROVIDERS: Emergency Provider Emergency Medicine; PCP Internal Medicine
DX: M19.042 Primary osteoarthritis, left hand (principal); M19.041 Primary osteoarthritis, right hand; G56.03 Carpal tunnel syndrome, bilateral upper limbs; M79.642 Pain in left hand; M79.641 Pain in right hand
CPT/HCPCS: 99283; 99284

== ENCOUNTER 2021-07-28 08:18 | Emergency (ER) | payer OTHER, SELFPAY ==
[2021-07-28 08:24] VITALS: BP 116/68; PULSE 60; RESP 17; TEMP 36.6; O2SAT 98; BMI 38.6
--- NOTE | 2021-07-28 09:24 | ED_ITS ---
HPI - General Adult General Chief complaint: General Medical Stated complaint: Thumb pain Time Seen by Provider: 07/28/21 09:01 Source: patient Mode of arrival: ambulatory Limitations: no limitations History of Present Illness HPI narrative: 35-year-old female presents to ED for right thumb pain with some redness. Patient denies any fever, chills or, blunt trauma to finger. Patient states history of infection around the area in the past. Patient states no pus discharge or foul odor from area. Related Data Home Medications Medication Instructions Recorded Confirmed furosemide 20 mg tablet 20 mg PO BID 12/17/20 06/28/21 valsartan 80 mg tablet 80 mg PO DAILY 01/21/21 06/28/21 Previous Rx's Medication Instructions Recorded hydroxychloroquine 200 mg tablet 200 mg PO BID #60 tab 10/29/20 (Plaquenil) calcium citrate 250 mg 2 tab PO BID #120 tab 12/17/20 calcium-vitamin D3 5 mcg (200 unit) tablet fluticasone propionate 50 1 spray INTRANASAL DAILY 30 Days 01/21/21 mcg/actuation nasal #150 ml spray,suspension (Flonase Allergy Relief) cholecalciferol (vitamin D3) 50 50 mcg PO DAILY #30 cap 02/08/21 mcg (2,000 unit) capsule albuterol sulfate 90 mcg/actuation 2 puff PO Q4-6H PRN #8.5 g 02/16/21 aerosol inhaler (ProAir HFA) sertraline 50 mg tablet 50 mg PO DAILY 90 Days #90 tab 04/05/21 sertraline 25 mg tablet 25 mg PO DAILY #90 tab 04/28/21 sumatriptan succinate 50 mg tablet 50 mg PO Q2-4H PRN #9 tab 04/28/21 acetaminophen 325 mg capsule 650 mg PO Q4H PRN #30 cap 07/02/21 (Tylenol) prednisone 20 mg tablet 40 mg PO DAILY #10 tab 07/02/21 cephalexin 500 mg capsule 500 mg PO QID 7 Days #28 cap 07/28/21 doxycycline hyclate 100 mg capsule 100 mg PO BID 7 Days #14 cap 07/28/21 Allergies Allergy/AdvReac Type Severity Reaction Status Date / Time metformin [METFORMIN] Allergy Intermediate INFLAMMED Verified 07/02/21 08:58 GUMS, red gums, redness of gums Pt states no known food Allergy Intermediate unknow Uncoded 06/28/21 09:40 allerg Review of Systems Review of Systems: Right thumb pain Yes all other systems are reviewed and are negative FORMERLY [facility] Past Medical History Medical History Autoimmune thyroiditis BMI 38.0-38.9,adult Depression Hypertension Intestinal malabsorption following gastrectomy Knee pain Lupus Mild recurrent major depression Morbid obesity with BMI of 40.0-44.9, adult Obesity (BMI 30-39.9) Preeclampsia Proteinuria SLE (systemic lupus erythematosus related syndrome) Vitamin D deficiency Surgical History History of open reduction and internal fixation (ORIF) procedure History of sleeve gastrectomy Status post biopsy of kidney Family History Family History Father Asthma Mother No problems noted. Brother No problems noted. Brother No problems noted. Sister No problems noted. Social History Social History Housing: Apartment Alcohol intake: never Patient Tobacco Use Status: Never used Tobacco e-Cigarette/Vaping Use: Never Used Second Hand Smoke Exposure: No Advance Directives: No Advance Directives Information Provided: No Patient : No service: No Current occupational status: unemployed Current occupational exposures/hazards: No Physical Exam Vital Signs: Vital Signs: Last Vital Signs Temp 98 F 07/28/21 08:24 Pulse 60 07/28/21 08:24 Resp 17 07/28/21 08:24 BP 116/68 07/28/21 08:24 Pulse Ox 98 07/28/21 08:24 BMI result Body Mass Index 38.6 Const: General: cooperative, healthy appearing, comfortable, no acute distress, well developed, alert, awake and Physically active Orientation/consciousness: patient oriented x3 HENMT: Head: Yes normal to inspection, Yes No palpable skull fracture present, Yes normocephalic, Yes atraumatic and No abrasion Eyes: General: appearance normal, both eyes and all related structures Neck: Neck: Yes normal visual inspection, Yes full ROM, Yes no lymphadenopathy, Yes no meningeal signs, Yes trachea midline, Yes supple, No anterior neck swelling and No tender Chest: Chest palpation & inspection: normal inspection of the chest and normal palpation of entire chest wall Resp: Effort & Inspection: normal respiratory effort and able to speak in complete sentences Auscultation: clear to auscultation bilaterally Cardio: Jugular venous distension: no JVD Heart sounds: S1 normal heart sound present and S2 normal heart sound present GI: Inspection: Yes normal to inspection and No abdominal wall ecchymosis Palpation (GI): Soft to palpation, not firm, nontender, no guarding and not rigid : General: No CVA tenderness and Yes no CVA tenderness Back/Spine/Pelvis: Back: no CVA tenderness, No CVA tenderness and No back tenderness Skin: General skin exam: no rashes or lesions noted and elasticity normal Neuro: General: patient oriented x3, gait normal, no meningeal signs and CN's II-XI intact bilaterally Cranial nerves: Yes CN's II-XII intact bilaterally Extrem: General: Yes normal to inspection and Yes full ROM Hand/finger images: 1. Positive for surrounding redness. Negative for any fluctuance or pus discharge or foul odor. Capillary refills intact. Rest of extremity normal. Motor/neuro/vascular exam intact Psych: Appearance: grossly normal, well kempt and not disheveled Course Course Course Narrative: Cellulitis Reevaluation(s) Reevaluation #1: Presently no indication for incision or drainage. Patient educated on warm compress. Patient will be discharged with antibiotics and pain medication. Patient informed to follow-up with primary care provider Time: 09:35 Medical Decision Making MDM Narrative Medical decision making narrative: Cellulitis Discharge Plan Discharge Clinical Impression: Cellulitis of finger Patient Disposition: Home, Self-Care Instructions: Cellulitis (ED) Additional Instructions: Return to the ED immediately for any pus discharge, foul odor, fever, chills, increased swelling, worsening redness, greenish discoloration, or any other concerning symptoms. Recommend warm compress on finger 4 times a day for 15 minutes. You will be discharged with antibiotics. Prescriptions: New cephalexin 500 mg capsule 500 mg PO QID 7 Days Qty: 28 RF: 0 doxycycline hyclate 100 mg capsule 100 mg PO BID 7 Days Qty: 14 RF: 0 No Action cholecalciferol (vitamin D3) 50 mcg (2,000 unit) capsule 50 mcg PO DAILY Qty: 30 RF: 2 albuterol sulfate [ProAir HFA] 90 mcg/actuation HFA aerosol inhaler 2 puff PO Q4-6H PRN (Reason: for wheezing) Qty: 8.5 RF: 0 sertraline 25 mg tablet 25 mg PO DAILY Qty: 90 RF: 0 sumatriptan succinate 50 mg tablet 50 mg PO Q2-4H PRN (Reason: for migraine) Qty: 9 RF: 0 acetaminophen [Tylenol] 325 mg capsule 650 mg PO Q4H PRN (Reason: pain) Qty: 30 RF: 0 prednisone 20 mg tablet 40 mg PO DAILY Qty: 10 RF: 0 valsartan 80 mg tablet 80 mg PO DAILY RF: 0 fluticasone propionate [Flonase Allergy Relief] 50 mcg/actuation spray,suspension 1 spray intranasal DAILY 30 Days Qty: 150 RF: 0 sertraline 50 mg tablet 50 mg PO DAILY 90 Days Qty: 90 RF: 1 hydroxychloroquine [Plaquenil] 200 mg tablet 200 mg PO BID Qty: 60 RF: 3 furosemide 20 mg tablet 20 mg PO BID RF: 0 calcium citrate-vitamin D3 250 mg-5 mcg (200 unit) tablet 2 tab PO BID Qty: 120 RF: 11 Stand Alone Forms: Work/School Release Interventions: ED Discharge Assessment Last Done: 07/28/21 10:19 Discharge Date/Time: 07/28/21 10:20 Print Language: Swedish
== END 2021-07-28 10:20 | disposition home or self-care (01) ==
PROVIDERS: Emergency Provider Emergency Medicine; PCP Internal Medicine
DX: L03.011 Cellulitis of right finger (principal); Z79.899 Other long term (current) drug therapy
CPT/HCPCS: 99283

== ENCOUNTER → 2021-07-29 08:41 | Outpatient (BNVA) | payer OTHER, SELFPAY | PROVIDERS: PCP Internal Medicine; Referring Provider Internal Medicine; Visit Provider Dietitian, Registered | DX: E66.01 Morbid (severe) obesity due to excess calories (principal); Z68.41 Body mass index [BMI] 40.0-44.9, adult | CPT/HCPCS: 97803 ==

== ENCOUNTER 2021-08-17 13:37 | Outpatient (RCR) | payer OTHER, SELFPAY ==
--- NOTE | ~2021-08-17 | XR_ITS ---
EXAMINATION: XR HAND, RIGHT CLINICAL INFORMATION: Right thumb pain and redness near the IP joint. COMPARISON: No similar priors. TECHNIQUE: PA, lateral, and oblique views of the right hand. FINDINGS: No acute fractures or malalignment. Carpal rows are maintained. The scapholunate interval is within normal limits. Mild soft tissue swelling around the thumb without evidence of unexpected radiopaque foreign bodies or subcutaneous air. XR/XR hand RT 2V IMPRESSION: No acute fractures or malalignment. Nonspecific soft tissue swelling around the first digit.
[2021-08-20 13:34] LABS: MANUAL DIFF FLAG NO
[2021-08-20 14:41] LABS: Basophils Percent Auto 0.6 % (0-2); Eosinophils Absolute Auto 0.1 X10*3/uL (0.0-0.4); Hematocrit 37.7 % (37.0-47.0); Hemoglobin 12.4 g/dl (12.0-16.0); Imm Gran Abs Auto 0.01 X10*3/uL (0.00-0.03); Imm Gran Pct Auto 0.2 % (0.0-0.4); Lymphocytes Absolute Auto 1.3 X10*3/uL (1.2-4.9); Lymphocytes Percent Auto 27.4 % (20-40); Mean Corpuscular HGB Conc 32.9 g/dl (31.0-35.0); Mean Corpuscular Volume 85.1 fL (80.0-98.0); Monocytes Absolute Auto 0.3 X10*3/uL (0.1-1.2); Monocytes Percent Auto 7.1 % (2-11); Neutrophils Absolute Auto 3.1 x10*3/uL (2.0-8.3); Neutrophils Percent Auto 63.7 % (45-73); Platelet Count 252 X10*3/uL (160-400); Red Blood Count 4.43 X10*6/uL (4.20-5.50); Red Cell Distribution Width 13.5 % (11.0-16.0); White Blood Count 4.8 X10*3/uL (4.8-10.8)
[2021-08-20 14:50] LABS: Estimated Average Glucose 88 mg/dL; Hemoglobin A1c % 4.7 %
[2021-08-20 15:19] LABS: Erythrocyte Sedimentation Rate 20 MM/HR (0-20)
[2021-08-20 15:26] LABS: C Reactive Protein 0.11 mg/dL (< or = 0.50)
== END 2021-08-23 15:16 | disposition home or self-care (01) ==
LOC: HO.WCC 13:37
PROVIDERS: PCP Internal Medicine; Referring Provider Internal Medicine; Visit Provider Physician Assistant
DX: L03.011 Cellulitis of right finger (principal); L93.0 Discoid lupus erythematosus; Z79.899 Other long term (current) drug therapy
CPT/HCPCS: 36415; 73120; 83036; 84134; 85025; 85652; 86140; 99213

== ENCOUNTER 2021-08-20 12:37 | Outpatient (REF) | payer OTHER, SELFPAY ==
[2021-08-24 12:41] LABS: Vitamin D 25-OH, D2 <4 ng/mL; Vitamin D 25-OH, D3 22 ng/mL; Vitamin D 25-OH, Total 22 ng/mL (30-100)
== END 2021-08-20 12:38 | disposition home or self-care (01) ==
LOC: HO.LAB 12:37
PROVIDERS: PCP Internal Medicine; Visit Provider Physician Assistant
DX: E06.3 Autoimmune thyroiditis (principal); E55.9 Vitamin D deficiency, unspecified
CPT/HCPCS: 36415; 82306; 84443

== ENCOUNTER → 2021-09-02 11:31 | Outpatient (BNVA) | payer OTHER, SELFPAY | PROVIDERS: PCP Internal Medicine; Referring Provider Internal Medicine; Visit Provider Physician Assistant ==

== ENCOUNTER → 2021-09-03 08:13 | Outpatient (BNVA) | payer OTHER, SELFPAY | PROVIDERS: PCP Internal Medicine; Referring Provider Surgery; Visit Provider Dietitian, Registered | DX: E66.9 Obesity, unspecified (principal); Z68.39 Body mass index [BMI] 39.0-39.9, adult | CPT/HCPCS: 97803 ==

== ENCOUNTER → 2021-10-01 08:17 | Outpatient (BNVA) | payer OTHER, SELFPAY | PROVIDERS: PCP Internal Medicine; Referring Provider Physician Assistant Surgical; Visit Provider Dietitian, Registered | DX: Z13.89 Encounter for screening for other disorder (principal) ==

== ENCOUNTER 2021-10-02 10:53 | Outpatient (REF) | payer OTHER, SELFPAY ==
[2021-10-02 11:44] LABS: Appearance Urine HAZY; Color Urine YELLOW; Glucose Urine UA NEG (NEG); Leukocyte Esterase Urine 1+ (NEG); Nitrite Urine NEG (NEG); Urine Blood 1+ (NEG); Urine Ketones NEG (NEG); Urine Protein 2+ MG/DL (NEG-TRACE)
[2021-10-02 11:52] LABS: Bacteria Urine 1+ /LPF; Squamous Epithelial Cell Urine 2+ /LPF
[2021-10-02 11:53] LABS: Amorphous Sediment Urine 1+ /LPF; RBC Urine 0-2 /HPF (0)
[2021-10-02 11:54] LABS: Mucus Urine 1+ /LPF
[2021-10-02 12:26] LABS: Thyroid Stimulating Hormone 1.54 uIU/mL (0.32-4.0); Vitamin D 25-OH Total 27.3 ng/mL (>30)
== END 2021-10-02 10:54 | disposition home or self-care (01) ==
LOC: HO.LAB 10:53
PROVIDERS: Physician Assistant; Student in an Organized Health Care Education/Training Program; PCP Internal Medicine; Visit Provider Internal Medicine
DX: E06.3 Autoimmune thyroiditis (principal); E55.9 Vitamin D deficiency, unspecified
CPT/HCPCS: 36415; 81001; 82306; 84443

== ENCOUNTER 2021-10-20 13:20 | Outpatient (REF) | payer OTHER, SELFPAY ==
[2021-10-20 17:25] LABS: CT PCR NOT DETECTED (Not Detect.); NG PCR NOT DETECTED (Not Detect.)
[2021-10-21 09:45] LABS: BV Int Neg Control Negative (Negative); BV Int Pos Control Positive (Positive)
== END 2021-10-20 13:21 | disposition home or self-care (01) ==
LOC: HO.LAB 13:20
PROVIDERS: PCP Internal Medicine; Visit Provider Obstetrics & Gynecology
DX: N89.8 Other specified noninflammatory disorders of vagina (principal); Z11.3 Encounter for screening for infections with a predominantly sexual mode of transmission; Z11.8 Encounter for screening for other infectious and parasitic diseases; E06.3 Autoimmune thyroiditis; I10 Essential (primary) hypertension; E55.9 Vitamin D deficiency, unspecified; K90.49 Malabsorption due to intolerance, not elsewhere classified; Z90.3 Acquired absence of stomach [part of]; Z88.8 Allergy status to other drugs, medicaments and biological substances
CPT/HCPCS: 87480; 87491; 87510; 87591; 87660; 99212

== ENCOUNTER 2021-11-09 12:24 | Outpatient (REF) | payer OTHER, SELFPAY ==
[2021-11-09 13:51] LABS: Alanine Aminotransferase 18 U/L (0-31); Albumin Level 3.4 g/dL (3.5-5.0); Alkaline Phosphatase 87 U/L (39-117); Anion Gap 11 (12-20); Aspartate Amino Transferase 17 U/L (5-31); Bilirubin Total 0.4 mg/dL (0.0-1.0); Blood Urea Nitrogen 21 mg/dL (9-16); Calcium 8.6 mg/dL (8.4-10.2); Carbon Dioxide 22 mmol/L (22-29); Chloride 111 mmol/L (96-108); Cholesterol 150 mg/dL; Estimated Glomerular Filt Rate 59; Glucose Fasting 84 mg/dL (60-99); HDL Cholesterol 33 mg/dL; LDL Cholesterol Calculated 92 mg/dl; Potassium 4.8 mmol/L (3.3-5.1); Sodium 139 mmol/L (135-145); Total Protein 6.4 g/dL (6.5-8.0); Triglycerides 126 mg/dL
[2021-11-10 07:58] LABS: HBsAGNum1 0.18 S/CO (0.00-0.99); HIV AB/AG Nonreactive (Nonreactive); HIV Num 1 0.05 S/CO (0.00-0.99); Hepatitis B Surface Antigen Negative (Negative); ~HepC Num1 0.33 S/CO (0.00-0.79); ~Hepatitis C Antibody Nonreactive (Nonreactive)
[2021-11-10 08:15] LABS: Syphilis Screen Nonreactive (Nonreactive)
== END 2021-11-09 12:25 | disposition home or self-care (01) ==
LOC: HO.LAB 12:24
PROVIDERS: Absent Provider Internal Medicine; PCP Internal Medicine; Visit Provider Obstetrics & Gynecology
DX: Z00.00 Encounter for general adult medical examination without abnormal findings (principal); Z11.4 Encounter for screening for human immunodeficiency virus [HIV]; B96.89 Other specified bacterial agents as the cause of diseases classified elsewhere; N76.0 Acute vaginitis
CPT/HCPCS: 36415; 80053; 80061; 86780; 86803; 87340; 87389

== ENCOUNTER 2021-12-01 13:12 | Outpatient (REF) | payer OTHER, SELFPAY ==
[2021-12-01 14:22] LABS: Appearance Urine CLEAR; Color Urine YELLOW; Glucose Urine UA NEG (NEG); Leukocyte Esterase Urine TRACE (NEG); Nitrite Urine NEG (NEG); Specific Gravity - Urine 1.025 (1.005-1.025); Urine Blood 1+ (NEG); Urine Ketones NEG (NEG); Urine Protein 1+ MG/DL (NEG-TRACE)
[2021-12-01 14:29] LABS: Squamous Epithelial Cell Urine 2+ /LPF
[2021-12-01 14:30] LABS: RBC Urine 0-2 /HPF (0)
[2021-12-01 14:31] LABS: Bacteria Urine 1+ /LPF
[2021-12-01 14:45] LABS: Anion Gap 10 (12-20); Blood Urea Nitrogen 22 mg/dL (9-16); Calcium 8.7 mg/dL (8.4-10.2); Carbon Dioxide 23 mmol/L (22-29); Chloride 112 mmol/L (96-108); Estimated Glomerular Filt Rate 53; Potassium 4.6 mmol/L (3.3-5.1); Sodium 140 mmol/L (135-145)
[2021-12-01 16:16] LABS: Creatinine Urine 95.57 mg/dL; Microalbum/Creatinine Ratio Ur 263.6 ug/mg cr; Protein/Creatinine Ratio, Ur 0.43 (<0.2); Total Protein Urine Random 41 mg/dL (<12)
== END 2021-12-01 13:13 | disposition home or self-care (01) ==
LOC: HO.LAB 13:12
PROVIDERS: PCP Internal Medicine; Visit Provider Internal Medicine Nephrology
DX: N18.2 Chronic kidney disease, stage 2 (mild) (principal); R80.1 Persistent proteinuria, unspecified
CPT/HCPCS: 36415; 80051; 81001; 82043; 82310; 82565; 84156; 84520

== ENCOUNTER 2021-12-21 09:34 | Emergency (ER) | payer OTHER, SELFPAY ==
[2021-12-21 09:41] VITALS: BP 122/68; PULSE 64; RESP 18; TEMP 36.9; O2SAT 99; BMI 41.1
--- NOTE | 2021-12-21 09:57 | ED.URI ---
HPI - URI/Sore Throat General Chief Complaint: General Medical Stated Complaint: Trouble swallowing/L ear pain Time Seen by Provider: 12/21/21 09:52 Source: patient Mode of arrival: ambulatory Limitations: no limitations History of Present Illness HPI Narrative: 36-year-old female presenting to the ER with complaints of left ear pain radiating to her throat for the past few days worse today. Denies any other symptoms including fevers, chills, dizziness, headaches, neck pain/ stiffness, trouble swallowing or breathing, loss of taste or smell, nasal congestion/ rhinorrhea, loss of hearing, drooling, cough, chest pain or shortness of breath, nausea/vomiting / diarrhea constipation, abdominal pain, dysuria, rashes, recent travel or sick contacts or any other symptoms complaints or concerns at this time. Reports that she is vaccinated for COVID and the flu. MD elicited complaint: sore throat and other (and left ear pain) Onset (ago): day(s) ( Past 2-3 days worse today) Consistency: constant and progressively worsening Severity: mild Able to tolerate fluids by mouth: Yes Exacerbating factors: swallowing Relieving factors: nothing Associated symptoms: ear pain Treatments prior to arrival: none Related Data Home Medications Medication Instructions Recorded Confirmed furosemide 20 mg tablet 20 mg PO BID 12/17/20 12/01/21 valsartan 80 mg tablet 160 mg PO DAILY 10/04/21 12/01/21 escitalopram oxalate 10 mg tablet mg PO 12/01/21 12/01/21 Previous Rx's Medication Instructions Recorded hydroxychloroquine 200 mg tablet 200 mg PO BID #60 tabs 10/29/20 (Plaquenil) calcium citrate 250 mg 2 tab PO BID #120 tabs 12/17/20 calcium-vitamin D3 5 mcg (200 unit) tablet fluticasone propionate 50 1 spray intranasal DAILY 30 days 01/21/21 mcg/actuation nasal #150 mL spray,suspension (Flonase Allergy Relief) albuterol sulfate 90 mcg/actuation 2 puff PO Q4-6H PRN for wheezing 02/16/21 aerosol inhaler (ProAir HFA) #8.5 grams acetaminophen 325 mg capsule 650 mg PO Q4H PRN pain #30 caps 07/02/21 (Tylenol) cholecalciferol (vitamin D3) 50 50 mcg PO DAILY 90 days #90 caps 08/24/21 mcg (2,000 unit) capsule metronidazole 500 mg tablet 500 mg PO BID 7 days #14 tabs 10/21/21 amoxicillin 875 mg-potassium 1 tab PO BID 10 days #20 tabs 12/21/21 clavulanate 125 mg tablet Allergies Allergy/AdvReac Type Severity Reaction Status Date / Time metformin [METFORMIN] Allergy Intermediate INFLAMMED Verified 12/01/21 09:44 GUMS, red gums, redness of gums Pt states no known food Allergy Intermediate unknow Uncoded 12/01/21 09:44 allerg Review of Systems Review of Systems: Constitutional : No Weight loss, No Fever, No Chills, No Night Sweats, No Fatigue, No Malaise ENT/Mouth : + sore throat/left ear pain, No Hearing loss, No Nasal Congestion, No Sinus Pain, No Hoarseness, No Rhinorrhea, No Swallowing Difficulty Eyes: No Eye Pain, No Swelling, No Redness, No Foreign Body, No Discharge, No Vision Changes Cardiovascular : No Chest Pain, No SOB, No Dyspnea on Exertion, No Orthopnea, No Edema, No Palpitations Respiratory : No Cough, No Sputum, No Wheezing, No Smoke Exposure, No Dyspnea Gastrointestinal : No Nausea, No Vomiting, No Diarrhea, No Constipation, No abdominal Pain, No Hematochezia, No Melena Genitourinary : no irregular bleeding, No Dysuria, No Urinary Frequency, No Hematuria, No Urinary Incontinence, No Urgency, No Flank Pain, No Urinary Flow Changes, No Hesitancy Musculoskeletal : No joint pain, No Myalgias, No Joint Swelling Skin : No Skin Lesions, No rash Neuro : No Weakness, No Numbness, No Paresthesias, No Loss of Consciousness, No Dizziness, No Headache Psych : No Anxiety/Panic, No Depression, No SI/HI/AH/VH, No Social Issues, Heme/Lymph: No Bruising, No Bleeding,No Lymphadenopathy Endocrine : No Polyuria, No Polydipsia, No Temperature Intolerance Yes all other systems are reviewed and are negative [facility] Past Medical History Attestation statement: The following information was validated with the patient. Source: old records reviewed and nursing notes reviewed Medical History BMI 38.0-38.9,adult Depression Knee pain Lupus Obesity (BMI 30-39.9) Surgical History History of open reduction and internal fixation (ORIF) procedure History of sleeve gastrectomy Status post biopsy of kidney Family History Family History Father Asthma Mother No problems noted. Brother No problems noted. Brother No problems noted. Sister No problems noted. Social History Social History Housing: Apartment Alcohol intake: never Patient Tobacco Use Status: Never used Tobacco e-Cigarette/Vaping Use: Never Used Second Hand Smoke Exposure: No Advance Directives: No Advance Directives Information Provided: No service: No Current occupational status: unemployed Current occupational exposures/hazards: No Cognitive needs: No Hearing needs: No Vision needs: No Physical Exam Vital Signs: Vital Signs: Last Vital Signs Temp 98.4 F 12/21/21 09:41 Pulse 64 12/21/21 09:41 Resp 18 12/21/21 09:41 BP 122/68 12/21/21 09:41 Pulse Ox 99 12/21/21 09:41 O2 Del Method 12/21/21 09:41 BMI result Body Mass Index 41.1 vital signs have been reviewed as normal and appeared to be correct. Blood pressure normal. Heart rate normal. Respiration rate normal. Temperature normal. Oxygen saturation normal. Appearance: Alert. Oriented X3. No acute distress. Head: Normal external exam. Normocephalic. Atraumatic. Eyes: PERRLA. EOMI. Conjunctiva and sclera normal. Eyelids normal. ENT: EAC normal. TM's Normal. no tenderness over the mastoids. Not consistent mastoiditis. Posterior pharynx mildly erythematous although no exudate is noted. Uvula midline. Moist mucous membranes. No lesions/ulcerations or masses noted on the tongue. Normal voice. No trismus noted. No drooling noted. No muffled voice noted. Neck: Normal inspection. Neck supple. FROM. No adenopathy. Thyroid Normal. No tracheal deviation noted. No crepitus is noted. No meningeal signs. No neck mass noted. No signs of trauma noted. CVS: Normal heart rate and rhythm. Heart sound normal. Pulses normal throughout. No murmurs/rales/gallops. Respiratory: No respiratory distress. Painless inspiration. Breath sounds normal. No wheezes/rales/rhonchi noted. Chest nontender. No accessory muscle usage noted or decreased air movement noted. Abdomen: Soft and nontender. Bowel sounds normal in all 4 quadrants. No distention noted. No organomegaly noted. No visible injury noted. Back: Full range of motion noted. Skin: Skin warm and dry. Normal skin color. Normal skin turgor. No rashes/lesions/lacerations noted. Extremities: Extremities exhibit normal range of motion and nontender. Neuro: Oriented X 3. No motor deficit. No sensory deficit. Reflexes normal. Normal steady gait. No focal neuro deficits noted. CN's II-XII intact bilaterally? Vascular: + radial pulses/+ 2 distal pedal pulses/+2 dorsalis pedis b/l. Normal cap refill. No cyanosis noted to upper extremity nails and lower extremity toes nails. Course Course Course Narrative: 36-year-old female presenting to the ER with complaints of left ear pain radiating to her throat for the past few days worse today. Reports that she is vaccinated for COVID and the flu. Awaiting COVID /influenza / strep swab will treat appropriately and instruct to follow-up with PCP and to return if any new or worsening symptoms. Patient understands agrees with this plan MDM - URI/Sore Throat Medical Records Attestation: I reviewed the patient's medical records. Lab Data Attestation: I reviewed the patient's lab results. Labs: Lab Results 12/21/21 12/21/21 Range/Units 09:48 09:48 COVID-19 (ALO) Negative (Negative) COVID-19 Clin Com See Note Influenza Type A (LEIGHANN) Negative (Negative) Influenza Type B (LEIGHANN) Negative (Negative) Influenza A & B Note See Note Discharge Plan Discharge Clinical Impression: Pharyngitis Patient Disposition: Home, Self-Care Instructions: Pharyngitis (ED) Prescriptions: New amoxicillin-pot clavulanate 875-125 mg tablet 1 tab PO BID 10 Days Qty: 20 0RF No Action albuterol sulfate [ProAir HFA] 90 mcg/actuation HFA aerosol inhaler 2 puff PO Q4-6H PRN (Reason: for wheezing) Qty: 8.5 0RF cholecalciferol (vitamin D3) 50 mcg (2,000 unit) capsule 50 mcg PO DAILY 90 Days Qty: 90 2RF metronidazole 500 mg tablet 500 mg PO BID 7 Days Qty: 14 0RF acetaminophen [Tylenol] 325 mg capsule 650 mg PO Q4H PRN (Reason: pain) Qty: 30 0RF fluticasone propionate [Flonase Allergy Relief] 50 mcg/actuation spray,suspension 1 spray intranasal DAILY 30 Days Qty: 150 0RF Rx Instructions: administer into each nostril valsartan 80 mg tablet 160 mg PO DAILY escitalopram oxalate 10 mg tablet PO hydroxychloroquine [Plaquenil] 200 mg tablet 200 mg PO BID Qty: 60 3RF furosemide 20 mg tablet 20 mg PO BID calcium citrate-vitamin D3 250 mg-5 mcg (200 unit) tablet 2 tab PO BID Qty: 120 11RF Referrals: Delores Mancia MD [Primary Care Provider] - 2 days Stand Alone Forms: Work/School Release
[2021-12-21 10:20] LABS: COVID-19 Test Negative (Negative); IDNOW Serial# 16C4AD1C; Influenza A Negative (Negative); Influenza B2 Negative (Negative)
[2021-12-21 11:07] LABS: Strep A Nucleic Acid Negative (Negative)
== END 2021-12-21 11:01 | disposition home or self-care (01) ==
PROVIDERS: Physician Assistant Medical; Emergency Provider Emergency Medicine; PCP Internal Medicine
DX: J02.9 Acute pharyngitis, unspecified (principal); Z20.822 Contact with and (suspected) exposure to COVID-19; H92.02 Otalgia, left ear
CPT/HCPCS: 36415; 87502; 87635; 87651; 99283

== ENCOUNTER 2022-01-20 14:04 | Outpatient (REF) | payer OTHER, SELFPAY ==
[2022-01-21 04:57] LABS: CT PCR NOT DETECTED (Not Detect.); NG PCR NOT DETECTED (Not Detect.)
[2022-01-21 09:22] LABS: BV Int Neg Control Negative (Negative); BV Int Pos Control Positive (Positive)
[2022-01-24 21:12] LABS: HPV mRNA E6/E7 rflx Not Detected (Not Detected)
== END 2022-01-20 14:05 | disposition home or self-care (01) ==
LOC: HO.LAB 14:04
PROVIDERS: Visit Provider Obstetrics & Gynecology
DX: Z01.419 Encounter for gynecological examination (general) (routine) without abnormal findings (principal); Z11.51 Encounter for screening for human papillomavirus (HPV)
CPT/HCPCS: 87480; 87491; 87510; 87591; 87624; 87660; 88142

== ENCOUNTER 2022-02-21 07:42 | Outpatient (REF) | payer OTHER, SELFPAY ==
--- NOTE | ~2022-02-21 | XR_ITS ---
EXAMINATION: XR KNEE, LEFT XR KNEE STANDING, BILATERAL CLINICAL INFORMATION: Pain left knee. COMPARISON: None TECHNIQUE: AP bilateral knee standing. Left knee 2 views. FINDINGS: BILATERAL KNEE: There is loss of medial and lateral compartment joint space both knees with moderate periarticular spurring in the lateral compartments. No bony erosive changes. No joint effusion. LEFT KNEE: There is loss of patellofemoral compartment joint space with periarticular spurring. No abnormal joint effusion seen. There are no loose bodies. The soft tissues are normal. 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 Degenerative arthritic changes patellofemoral compartment without loose bodies or joint effusion. No bony erosive changes.
--- NOTE | ~2022-02-21 | XR_ITS ---
EXAMINATION: XR KNEE, LEFT XR KNEE STANDING, BILATERAL CLINICAL INFORMATION: Pain left knee. COMPARISON: None TECHNIQUE: AP bilateral knee standing. Left knee 2 views. FINDINGS: BILATERAL KNEE: There is loss of medial and lateral compartment joint space both knees with moderate periarticular spurring in the lateral compartments. No bony erosive changes. No joint effusion. LEFT KNEE: There is loss of patellofemoral compartment joint space with periarticular spurring. No abnormal joint effusion seen. There are no loose bodies. The soft tissues are normal. XR/XR knee LT 2V IMPRESSION: Degenerative arthritic changes medial and lateral compartment both knees with periarticular spurring in the lateral compartments. Degenerative arthritic changes patellofemoral compartment without loose bodies or joint effusion. No bony erosive changes.
== END 2022-02-21 07:43 | disposition home or self-care (01) ==
LOC: HO.HOSX 07:42
PROVIDERS: Visit Provider Physician Assistant
DX: M17.12 Unilateral primary osteoarthritis, left knee (principal); M25.561 Pain in right knee
CPT/HCPCS: 73560; 73565; 99212

== ENCOUNTER 2022-03-23 11:32 | Outpatient (REF) | payer OTHER, SELFPAY ==
[2022-03-23 12:02] LABS: MANUAL DIFF FLAG NO
[2022-03-23 12:16] LABS: Basophils Percent Auto 0.7 % (0-2); Eosinophils Absolute Auto 0.1 X10*3/uL (0.0-0.4); Eosinophils Percent Auto 1.7 % (0-4); Hematocrit 37.1 % (37.0-47.0); Hemoglobin 11.9 g/dl (12.0-16.0); Imm Gran Abs Auto 0.01 X10*3/uL (0.00-0.03); Imm Gran Pct Auto 0.2 % (0.0-0.4); Lymphocytes Absolute Auto 1.2 X10*3/uL (1.2-4.9); Lymphocytes Percent Auto 26.9 % (20-40); Mean Corpuscular HGB Conc 32.1 g/dl (31.0-35.0); Mean Corpuscular Hemoglobin 26.7 pg (27.0-33.0); Mean Corpuscular Volume 83.4 fL (80.0-98.0); Mean Platelet Volume 11.2 fL (9.4-12.3); Monocytes Absolute Auto 0.3 X10*3/uL (0.1-1.2); Monocytes Percent Auto 7.2 % (2-11); Neutrophils Absolute Auto 2.9 x10*3/uL (2.0-8.3); Neutrophils Percent Auto 63.3 % (45-73); Platelet Count 223 X10*3/uL (160-400); Red Blood Count 4.45 X10*6/uL (4.20-5.50); Red Cell Distribution Width 14.5 % (11.0-16.0); White Blood Count 4.6 X10*3/uL (4.8-10.8)
[2022-03-23 12:25] LABS: Estimated Average Glucose 85 mg/dL; Hemoglobin A1c % 4.6 %
[2022-03-23 12:46] LABS: Appearance Urine Clear; Color Urine Yellow; Glucose Urine UA Negative (Negative); Leukocyte Esterase Urine Trace (Negative); Nitrite Urine Negative (Negative); PH 5.5 (5.0-9.0); Specific Gravity - Urine 1.015 (1.005-1.025); UMIC TRIGGER UA YES; Urine Blood Trace (Negative); Urine Ketones Negative (Negative); Urine Protein 100 (2+) mg/dL (Neg-Trace)
[2022-03-23 12:49] LABS: Alanine Aminotransferase 16 U/L (0-31); Albumin Level 3.5 g/dL (3.5-5.0); Alkaline Phosphatase 95 U/L (39-117); Anion Gap 13 (12-20); Aspartate Amino Transferase 16 U/L (5-31); Bilirubin Total 0.3 mg/dL (0.0-1.0); Blood Urea Nitrogen 23 mg/dL (9-16); C Reactive Protein 0.17 mg/dL (< or = 0.50); Calcium 8.9 mg/dL (8.4-10.2); Carbon Dioxide 24 mmol/L (22-29); Chloride 109 mmol/L (96-108); Cholesterol 181 mg/dL; Estimated Glomerular Filt Rate 57; Glucose Random 86 mg/dL (60-115); HDL Cholesterol 40 mg/dL; Iron 61 mcg/dL (30-160); LDL Cholesterol Calculated 120 mg/dl; Percent Iron Saturation 17 % (15-50); Potassium 4.6 mmol/L (3.3-5.1); Sodium 141 mmol/L (135-145); Total Iron Binding Capacity 356 mcg/dL (228-428); Total Protein 6.5 g/dL (6.5-8.0); Triglycerides 106 mg/dL; Unsaturated Iron Binding 295 ug/dL
[2022-03-23 12:55] LABS: Bacteria Urine None Seen (None Seen); Hyaline Casts Urine 0-2 /LPF (0-2); RBC Urine 0-2 /HPF (0-2)
[2022-03-23 13:09] LABS: Thyroid Stimulating Hormone 4.87 uIU/mL (0.32-4.0)
[2022-03-23 13:16] LABS: Folate 11.4 ng/mL (> or = 4.0); Vitamin B12 307 pg/mL (200-900)
[2022-03-23 13:17] LABS: Ferritin 5 ng/mL (10-122); TSH reflex Free T4 4.98 uIU/mL (0.32-4.0)
[2022-03-23 14:00] LABS: Insulin 6 uU/mL (2-29)
[2022-03-24 14:03] LABS: Calcium (PTHI) 8.8 mg/dL (8.6-10.2); PTHI 86 pg/mL (16-77)
[2022-03-26 11:02] LABS: Vitamin B1 10 nmol/L (8-30)
[2022-03-27 18:55] LABS: Zinc 56 mcg/dL (60-130)
[2022-03-30 10:26] LABS: Vitamin A 72 mcg/dL (38-98)
== END 2022-03-23 11:33 | disposition home or self-care (01) ==
LOC: HO.LAB 11:32
PROVIDERS: Student in an Organized Health Care Education/Training Program; Absent Provider Physician Assistant Surgical; PCP Internal Medicine; Visit Provider Internal Medicine
DX: E66.01 Morbid (severe) obesity due to excess calories (principal); Z68.41 Body mass index [BMI] 40.0-44.9, adult; M32.9 Systemic lupus erythematosus, unspecified; E06.3 Autoimmune thyroiditis; Z90.3 Acquired absence of stomach [part of]
CPT/HCPCS: 36415; 80053; 80061; 81001; 82306; 82607; 82728; 82746; 83036; 83525; 83540; 83970; 84425; 84439; 84443; 84590; 84630; 85025; 86140; 99212

== ENCOUNTER → 2022-03-25 12:57 | Outpatient (BNVA) | payer OTHER, SELFPAY | PROVIDERS: Visit Provider Physician Assistant | DX: M17.12 Unilateral primary osteoarthritis, left knee (principal) | CPT/HCPCS: 20610; 99212; J1040 ==

== ENCOUNTER 2022-03-31 10:50 | Emergency (ER) | payer OTHER, SELFPAY ==
[2022-03-31 11:32] VITALS: BP 129/79; PULSE 58; RESP 18; TEMP 36.2; O2SAT 100; BMI 42.5
[2022-03-31] MEDS: Acetaminophen 325 MG TABLET 650 MG PO (14:24)
--- NOTE | 2022-03-31 15:45 | ED.GENADULT ---
HPI - General Adult General Chief complaint: Eye Problems Stated complaint: L Eye Facial Swelling No Injury Time Seen by Provider: 03/31/22 15:41 Source: patient Limitations: no limitations History of Present Illness HPI narrative: This is a 36-year-old female who complains of pain and redness to her left lateral upper eyelid for several days. The patient has blood warm compresses. She initially had what she thought was a stye in the right eye but that got better and then subsequently she developed the pain and swelling to her left eye. She has not been able to identify any stye. She denies any fever. She denies any conjunctival injection or eye discharge. He does have history of systemic lupus erythematosus Related Data Home Medications Medication Instructions Recorded Confirmed valsartan 80 mg tablet 160 mg PO DAILY 10/04/21 03/23/22 escitalopram oxalate 10 mg tablet mg PO 12/01/21 03/23/22 trazodone 50 mg tablet 25 - 50 mg PO BEDTIME 01/20/22 03/23/22 furosemide 20 mg tablet 20 mg PO DAILY 02/21/22 03/23/22 Previous Rx's Medication Instructions Recorded hydroxychloroquine 200 mg tablet 200 mg PO BID #60 tabs 10/29/20 (Plaquenil) calcium citrate 250 mg 2 tab PO BID #120 tabs 12/17/20 calcium-vitamin D3 5 mcg (200 unit) tablet fluticasone propionate 50 1 spray intranasal DAILY 30 days 01/21/21 mcg/actuation nasal #150 mL spray,suspension (Flonase Allergy Relief) albuterol sulfate 90 mcg/actuation 2 puff PO Q4-6H PRN for wheezing 02/16/21 aerosol inhaler (ProAir HFA) #8.5 grams acetaminophen 325 mg capsule 650 mg PO Q4H PRN pain #30 caps 07/02/21 (Tylenol) cholecalciferol (vitamin D3) 125 125 mcg PO DAILY #90 caps 03/31/22 mcg (5,000 unit) capsule erythromycin 5 mg/gram (0.5 %) eye 0.5 inch ophthalmic (eye) QID 7 03/31/22 ointment days #3.5 grams zinc gluconate 10 mg lozenges 10 mg PO DAILY #100 ea 03/31/22 Allergies Allergy/AdvReac Type Severity Reaction Status Date / Time metformin [METFORMIN] Allergy Intermediate INFLAMMED Verified 03/25/22 13:05 GUMS, red gums, redness of gums Pt states no known food Allergy Intermediate unknow Uncoded 03/25/22 13:05 allerg Review of Systems Review of Systems: As per HPI Constitutional: Constitutional: Denies fever(s) Eyes: Eyes: Reports as per HPI ENT: Denies nasal congestion and Denies nasal discharge PMFSH Past Medical History Medical History (Reviewed 02/21/22 @ 09:48 by Nadja Price [facility]) Autoimmune thyroiditis BMI 38.0-38.9,adult Depression Hypertension Intestinal malabsorption following gastrectomy Knee pain Lupus Mild recurrent major depression Morbid obesity with BMI of 40.0-44.9, adult Obesity (BMI 30-39.9) Open wound of thumb Physical exam Preeclampsia Proteinuria SLE (systemic lupus erythematosus related syndrome) Vaginal discharge Vitamin D deficiency Surgical History History of open reduction and internal fixation (ORIF) procedure History of sleeve gastrectomy Status post biopsy of kidney Family History Family History Father Asthma Mother No problems noted. Brother No problems noted. Brother No problems noted. Sister No problems noted. Social History Social History Housing: Apartment Alcohol intake: never Patient Tobacco Use Status: Never used Tobacco e-Cigarette/Vaping Use: Never Used Second Hand Smoke Exposure: No Advance Directives: No Advance Directives Information Provided: No service: No Current occupational status: unemployed Current occupational exposures/hazards: No Cognitive needs: No Hearing needs: No Vision needs: No Physical Exam ED Vital Signs: Vital Signs - 24 hr 03/31/22 11:32 Temperature 97.2 F Pulse Rate 58 Respiratory Rate 18 Blood Pressure 129/79 Pulse Oximetry 100 Oxygen Delivery Method Room Air BMI result Body Mass Index 42.5 Const Other: Well-appearing. Left eye with mild inflammations/erythema and tenderness to the lateral upper eyelid without any focal induration which would suggest a stye. No discharge. Conjunctiva not injected. No generalized blepharitis. Lower eyelid normal. HENMT Head: Yes normal to inspection Course Course Course Narrative: Patient with mild erythema and inflammation to her left lateral upper eyelid, no evidence of stye on exam. No eye discharge or conjunctival injection. Will treat with warm compresses, erythromycin ophthalmic ointment. Discharge Plan Discharge Clinical Impression: Blepharitis of left eye Patient Disposition: Home, Self-Care Instructions: Blepharitis (ED) Additional Instructions: Apply warm compress for 15 minutes 4 times daily. Use the erythromycin antibiotic ointment as prescribed. Follow up with an public health specialist in 3-4 days if not improved Prescriptions: New erythromycin 5 mg/gram (0.5 %) ointment 0.5 inch ophthalmic (eye) QID 7 Days Qty: 3.5 0RF No Action albuterol sulfate [ProAir HFA] 90 mcg/actuation HFA aerosol inhaler 2 puff PO Q4-6H PRN (Reason: for wheezing) Qty: 8.5 0RF cholecalciferol (vitamin D3) 125 mcg (5,000 unit) capsule 125 mcg PO DAILY Qty: 90 3RF zinc gluconate 10 mg lozenge 10 mg PO DAILY Qty: 100 3RF acetaminophen [Tylenol] 325 mg capsule 650 mg PO Q4H PRN (Reason: pain) Qty: 30 0RF fluticasone propionate [Flonase Allergy Relief] 50 mcg/actuation spray,suspension 1 spray intranasal DAILY 30 Days Qty: 150 0RF Rx Instructions: administer into each nostril valsartan 80 mg tablet 160 mg PO DAILY escitalopram oxalate 10 mg tablet PO hydroxychloroquine [Plaquenil] 200 mg tablet 200 mg PO BID Qty: 60 3RF calcium citrate-vitamin D3 250 mg-5 mcg (200 unit) tablet 2 tab PO BID Qty: 120 11RF trazodone 50 mg tablet 25 - 50 mg PO BEDTIME furosemide 20 mg tablet 20 mg PO DAILY
== END 2022-03-31 16:11 | disposition home or self-care (01) ==
PROVIDERS: Emergency Provider Emergency Medicine; PCP Internal Medicine
DX: H01.004 Unspecified blepharitis left upper eyelid (principal); Z79.899 Other long term (current) drug therapy
CPT/HCPCS: 99283

== ENCOUNTER 2022-05-25 10:46 | Outpatient (REF) | payer OTHER, SELFPAY ==
[2022-05-25 14:21] LABS: Appearance Urine Clear; Color Urine Yellow; Glucose Urine UA Negative (Negative); Leukocyte Esterase Urine Small (1+) (Negative); Nitrite Urine Negative (Negative); UMIC TRIGGER UA YES; Urine Blood Trace (Negative); Urine Ketones Negative (Negative); Urine Protein 100 (2+) mg/dL (Neg-Trace)
[2022-05-25 14:33] LABS: Anion Gap 13 (12-20); Blood Urea Nitrogen 24 mg/dL (9-16); Carbon Dioxide 25 mmol/L (22-29); Chloride 106 mmol/L (96-108); Estimated Glomerular Filt Rate 47; Potassium 4.8 mmol/L (3.3-5.1); Sodium 139 mmol/L (135-145)
[2022-05-25 14:38] LABS: Bacteria Urine None Seen (None Seen); Hyaline Casts Urine 0-2 /LPF (0-2); RBC Urine 0-2 /HPF (0-2); WBC Urine 0-5 /HPF (0-5)
[2022-05-25 15:19] LABS: Creatinine Urine 72.01 mg/dL; Microalbum/Creatinine Ratio Ur 530.4 ug/mg cr
[2022-05-25 17:16] LABS: Protein/Creatinine Ratio, Ur 0.72 (<0.2); Total Protein Urine Random 52 mg/dL (<12)
== END 2022-05-25 10:47 | disposition home or self-care (01) ==
LOC: HO.10HDL 10:46
PROVIDERS: Visit Provider Internal Medicine Nephrology
DX: R80.1 Persistent proteinuria, unspecified (principal); N18.31 Chronic kidney disease, stage 3a
CPT/HCPCS: 36415; 80051; 81001; 82043; 82310; 82565; 84156; 84520

== ENCOUNTER → 2022-05-31 11:00 | Outpatient (BNVA) | payer OTHER, SELFPAY | PROVIDERS: PCP Internal Medicine; Visit Provider Physician Assistant Surgical | DX: E66.01 Morbid (severe) obesity due to excess calories (principal); Z68.41 Body mass index [BMI] 40.0-44.9, adult; Z90.3 Acquired absence of stomach [part of] | CPT/HCPCS: 99212 ==

== ENCOUNTER 2022-09-24 16:01 | Emergency (ER) | payer OTHER, SELFPAY ==
[2022-09-24 16:07] VITALS: BP 153/49; PULSE 77; RESP 20; TEMP 36.3; O2SAT 100; BMI 36.8
--- NOTE | 2022-09-24 16:09 | ED.GENADULT ---
HPI - General Adult General Chief complaint: Ear Problems Stated complaint: right ear pain Time Seen by Provider: 09/24/22 16:14 Source: patient Mode of arrival: ambulatory Limitations: no limitations History of Present Illness HPI narrative: Patient is a 36 year old assigned female at with a history of HTN presenting to the emergency department today with a persistent right ear infection. Patient states that 6 days ago she was evaluated elsewhere for right ear pain and given drops and oral amoxicillin but her ear continues to be painful, itchy, and draining. Patient denies any dizziness, lightheadedness, abdominal pain, nausea, vomiting, fever, chills, blurry vision, double vision, loss of vision, chest pain, difficulty breathing, shortness of breath, back pain, night sweats, pain with urination, increased urinary frequency, increased urinary urgency, blood in her urine or stool, syncope or a near syncopal episode, recent trauma or falls, bowel incontinence, bladder incontinence, bowel retention, bladder retention, or any other complaints at this time. Onset (ago): day(s) (6) Severity: mild Severity scale (1-10): 3 Relieving factors: none Exacerbating factors: none Associated symptoms: denies other symptoms Treatments prior to arrival: other (oral amoxicillin and ear drops) Related Data Home Medications Medication Instructions Recorded Confirmed valsartan 80 mg tablet 160 mg PO DAILY 10/04/21 05/31/22 escitalopram oxalate 10 mg tablet mg PO 12/01/21 05/31/22 trazodone 50 mg tablet 25 - 50 mg PO BEDTIME 01/20/22 05/31/22 furosemide 20 mg tablet 20 mg PO DAILY PRN edema 04/22/22 05/31/22 bupropion HCl 300 mg 24 hr tablet, 300 mg PO DAILY 05/26/22 05/31/22 extended release Previous Rx's Medication Instructions Recorded hydroxychloroquine 200 mg tablet 200 mg PO BID #60 tabs 10/29/20 (Plaquenil) fluticasone propionate 50 1 spray intranasal DAILY 30 days 01/21/21 mcg/actuation nasal #150 mL spray,suspension (Flonase Allergy Relief) albuterol sulfate 90 mcg/actuation 2 puff PO Q4-6H PRN for wheezing 02/16/21 aerosol inhaler (ProAir HFA) #8.5 grams acetaminophen 325 mg capsule 650 mg PO Q4H PRN pain #30 caps 07/02/21 (Tylenol) cholecalciferol (vitamin D3) 125 125 mcg PO DAILY #90 caps 04/22/22 mcg (5,000 unit) capsule amoxicillin 500 mg tablet 500 mg PO BID 10 days #20 tabs 09/19/22 frzqublc-wxxixoqrw-hpflibaoi 3.5 4 drp otic (ears) Q8H #10 mL 09/20/22 mg-10,000 unit/mL-1 % ear drops,susp doxycycline hyclate 100 mg tablet 100 mg PO BID 7 days #14 tabs 09/24/22 ofloxacin 0.3 % ear drops 10 drp otic (ears) DAILY 7 days 09/24/22 #10 mL Allergies Allergy/AdvReac Type Severity Reaction Status Date / Time metformin [METFORMIN] Allergy Intermediate INFLAMMED Verified 09/19/22 13:31 GUMS, red gums, redness of gums Pt states no known food Allergy Intermediate unknow Uncoded 09/19/22 13:31 allerg Review of Systems Constitutional: Constitutional: Reports no additional constitutional complaints, Denies chills, Denies fever(s) and Denies night sweats Eyes: Eyes: Reports no additional eye complaints, Denies blurry vision, Denies change in vision, Denies diplopia, Denies eye discharge, Denies loss of vision and Denies eye pain ENT: Denies dizziness Comments: right ear pain and discharge Cardiovascular: Cardiovascular: Reports no additional cardiovascular complaints, Denies chest pain, Denies lightheadedness, Denies Loss of Consciousness and Denies dyspnea Respiratory: Respiratory: Reports no additional respiratory complaints and Denies dyspnea Gastrointestinal: Gastrointestinal: Reports no additional gastrointestinal complaints, Denies abdominal pain, Denies melena, Denies hematochezia, Denies change in bowel habits and Denies change in stool character Genitourinary: Genitourinary: Denies hematuria, Denies urinary frequency, Denies dysuria, Denies urinary incontinence, Denies urinary hesitancy and Denies urinary urgency Musculoskeletal: Musculoskeletal: Reports no additional musculoskeletal complaints, Denies numbness and Denies tingling Neurologic: Denies dizziness, Denies loss of vision, Denies numbness and Denies tingling Psychiatric: Psychiatric: Reports no additional psychiatric complaints Endocrine: Endocrine: Reports no additional endocrine complaints Hematologic/Lymphatic: Hematologic/Lymphatic: Reports no additional hematologic/lymphatic complaints Allergic/Immunologic: Allergic/Immunologic: Reports no additional allergic/immunologic complaints [facility] Past Medical History Attestation statement: The following information was validated with the patient. Source: old records reviewed and nursing notes reviewed Medical History Autoimmune thyroiditis BMI 38.0-38.9,adult Depression Hypertension Intestinal malabsorption following gastrectomy Knee pain Lupus Mild recurrent major depression Morbid obesity with BMI of 40.0-44.9, adult Obesity (BMI 30-39.9) Open wound of thumb Physical exam Preeclampsia Proteinuria SLE (systemic lupus erythematosus related syndrome) Vaginal discharge Vitamin D deficiency Surgical History History of open reduction and internal fixation (ORIF) procedure History of sleeve gastrectomy Status post biopsy of kidney Family History Family History Father Asthma Mother No problems noted. Brother No problems noted. Brother No problems noted. Sister No problems noted. Social History Social History Housing: Apartment Alcohol intake: never Patient Tobacco Use Status: Never used Tobacco e-Cigarette/Vaping Use: Never Used Second Hand Smoke Exposure: No Advance Directives: No Advance Directives Information Provided: No service: No Current occupational status: unemployed Current occupational exposures/hazards: No Cognitive needs: No Hearing needs: No Vision needs: No Physical Exam ED Vital Signs: Vital Signs - 24 hr 09/24/22 16:07 Temperature 97.3 F Pulse Rate 77 Respiratory Rate 20 Blood Pressure 153/49 H Pulse Oximetry 100 Oxygen Delivery Method Room Air BMI result Body Mass Index 36.8 Const General: cooperative, no acute distress, alert and awake Nutritional Appearance: well nourished Orientation/consciousness: patient oriented x3 Limitations: no limitations HENMT Head: Yes normal to inspection and Yes atraumatic Ears: hearing grossly normal bilaterally, external ears normal and Abnormal EAC present erythema on the right and EAC tenderness on the right General nose exam: Normal external nose present, no nasal discharge noted and no epistaxis Face and sinus: Yes normal facial exam, No abrasion and No laceration Mouth: Normal oral and palatal mucosa present, no drooling and no muffled voice Eyes General: appearance normal, both eyes and all related structures Periorbital: periorbital findings normal Eyelids: Yes eyelids normal Conjunctivae: conjunctivae normal Pupils: Equal, round and reactive pupils present EOM: EOMs intact bilaterally Neck Neck: Yes normal visual inspection, Yes full ROM and Yes no lymphadenopathy Chest Chest palpation & inspection: normal inspection of the chest Resp Effort & Inspection: normal respiratory effort and able to speak in complete sentences Auscultation: clear to auscultation bilaterally Cardio Rate: regular rate Rhythm: regular rhythm GI Inspection: Yes normal to inspection Palpation (GI): Soft to palpation, not firm, nontender and no guarding General: Yes no CVA tenderness Back/Spine/Pelvis Back: no CVA tenderness Cervical Spine: normal cervical lordosis and cervical ROM normal Thoracic/Lumbar Spine: thoracic and lumbar spine normal to inspection and thoraco-lumbar ROM normal Pelvis: no pain with anterior-posterior compression Neuro General: patient oriented x3 and moves all extremities Cranial nerves: Yes Equal, round and reactive pupils present Cognition (Neuro): normal cognition Motor exam (neuro): 5/5 motor strength present throughout Sensory Exam: Normal double simultaneous stimulation for sensation Coordination: [id number] test normal Extrem General: Yes normal to inspection, Yes full ROM and Yes capillary refill normal Psych Appearance: grossly normal Mental Status: mental status grossly normal Affect: normal affect Attitude: cooperative Thought process: Normal thought process present Thought content: Normal thought content present Insight: Good insight present (Psych) Medical Decision Making Medical Decision Making MDM Narrative: Patient is a 36 year old assigned female at with a history of HTN presenting to the emergency department today with right ear pain and discharge. Patient's physical exam showed an erythematous right TM and painful right ear canal with minimal discharge, consistent with otitis. I explained my physical exam findings to the patient. I answered all questions asked by the patient. I stressed the importance of the patient taking her medication as prescribed. I stressed the importance of the patient following up with her primary care provider and an ENT. I stressed the importance of the patient returning to the emergency department immediately if her symptoms were to worsen or if she were to develop any dizziness, shortness of breath, difficulty breathing, chest pain, blurry vision, loss of vision, nausea, vomiting, abdominal pain, fever, chills, back pain, or any other complaints. Patient verbalized agreement and understanding with this treatment plan and discharge. Differential Diagnosis Differential Diagnoses: The differential diagnosis associated with the presentation includes otitis Discharge Plan Discharge Clinical Impression: Otitis Patient Disposition: Home, Self-Care Instructions: Ear Infection (ED) Additional Instructions: Follow up with your primary care provider and an ENT. Return to the emergency department immediately if your symptoms worsen or if you develop any dizziness, shortness of breath, difficulty breathing, chest pain, blurry vision, loss of vision, nausea, vomiting, abdominal pain, fever, chills, back pain, or any other complaints. Prescriptions: New doxycycline hyclate 100 mg tablet 100 mg PO BID 7 Days Qty: 14 0RF ofloxacin 0.3 % drops 10 drp otic (ears) DAILY 7 Days Qty: 10 0RF No Action albuterol sulfate [ProAir HFA] 90 mcg/actuation HFA aerosol inhaler 2 puff PO Q4-6H PRN (Reason: for wheezing) Qty: 8.5 0RF itgylibi-zyerddneo-YA 3.5-10,000-1 mg/mL-unit/mL-% drops,suspension 4 drp otic (ears) Q8H Qty: 10 0RF acetaminophen [Tylenol] 325 mg capsule 650 mg PO Q4H PRN (Reason: pain) Qty: 30 0RF fluticasone propionate [Flonase Allergy Relief] 50 mcg/actuation spray,suspension 1 spray intranasal DAILY 30 Days Qty: 150 0RF Rx Instructions: administer into each nostril valsartan 80 mg tablet 160 mg PO DAILY bupropion HCl 300 mg tablet extended release 24 hr 300 mg PO DAILY amoxicillin 500 mg tablet 500 mg PO BID 10 Days Qty: 20 0RF escitalopram oxalate 10 mg tablet PO hydroxychloroquine [Plaquenil] 200 mg tablet 200 mg PO BID Qty: 60 3RF trazodone 50 mg tablet 25 - 50 mg PO BEDTIME furosemide 20 mg tablet 20 mg PO DAILY PRN (Reason: edema) cholecalciferol (vitamin D3) 125 mcg (5,000 unit) capsule 125 mcg PO DAILY Qty: 90 3RF Referrals: Marquis Campos [Physician] - (Call to establish and follow up with an ENT specialist. ) Delores Mancia MD [Primary Care Provider] - Stand Alone Forms: Work/School Release Interventions: ED Discharge Assessment Last Done: 09/24/22 16:20 Discharge Date/Time: 09/24/22 16:20 Print Language: Prydeinig
== END 2022-09-24 16:20 | disposition home or self-care (01) ==
LOC: HO.ED 16:18
PROVIDERS: Emergency Provider Emergency Medicine; PCP Internal Medicine
DX: H66.91 Otitis media, unspecified, right ear (principal); H92.01 Otalgia, right ear; I10 Essential (primary) hypertension; Z79.899 Other long term (current) drug therapy
CPT/HCPCS: 99282; 99283

== ENCOUNTER → 2022-09-30 09:44 | Outpatient (BNVA) | payer OTHER, SELFPAY | PROVIDERS: PCP Internal Medicine; Visit Provider Physician Assistant | DX: M17.12 Unilateral primary osteoarthritis, left knee (principal) | CPT/HCPCS: 99212 ==

== ENCOUNTER 2022-10-04 08:43 | Outpatient (REF) | payer OTHER, SELFPAY ==
--- NOTE | 2022-10-04 08:49 | ECG_ITS ---
Test Reason : PREOP Blood Pressure : / mmHG Vent. Rate : 060 BPM Atrial Rate : 060 BPM P-R Int : 130 ms QRS Dur : 072 ms QT Int : 410 ms P-R-T Axes : 045 013 026 degrees QTc Int : 410 ms Normal sinus rhythm Normal ECG When compared with ECG of 09-NOV-2017 13:01, No significant changes seen Referred By: Delores Silva Electronically Signed By:LUPILLO WHITTINGTON
[2022-10-04 10:16] LABS: Alanine Aminotransferase 13 U/L (0-31); Albumin Level 3.3 g/dL (3.5-5.0); Alkaline Phosphatase 92 U/L (39-117); Anion Gap 10 (12-20); Aspartate Amino Transferase 15 U/L (5-31); Bilirubin Total 0.3 mg/dL (0.0-1.0); Blood Urea Nitrogen 25 mg/dL (9-16); Calcium 8.7 mg/dL (8.4-10.2); Carbon Dioxide 24 mmol/L (22-29); Chloride 113 mmol/L (96-108); Cholesterol 161 mg/dL; Estimated Glomerular Filt Rate 51; Glucose Fasting 84 mg/dL (60-99); HDL Cholesterol 42 mg/dL; LDL Cholesterol Calculated 97 mg/dl; Potassium 4.6 mmol/L (3.3-5.1); Sodium 142 mmol/L (135-145); Triglycerides 114 mg/dL
[2022-10-04 10:35] LABS: Free T4 (Free Thyroxine) 0.93 ng/dL (0.71-1.85); Thyroid Stimulating Hormone 4.26 uIU/mL (0.32-4.0); Vitamin D 25-OH Total 25.5 ng/mL (>30)
[2022-10-06 11:19] LABS: Calcium (PTHI) 8.5 mg/dL (8.6-10.2); PTHI 96 pg/mL (16-77)
== END 2022-10-04 08:44 | disposition home or self-care (01) ==
LOC: HO.LAB 08:43
PROVIDERS: PCP Internal Medicine; Visit Provider Internal Medicine
DX: Z01.818 Encounter for other preprocedural examination (principal); E78.5 Hyperlipidemia, unspecified; E55.9 Vitamin D deficiency, unspecified; E06.3 Autoimmune thyroiditis; E21.3 Hyperparathyroidism, unspecified
CPT/HCPCS: 36415; 80053; 80061; 82306; 82330; 83970; 84439; 84443; 93005

== ENCOUNTER → 2022-10-11 09:26 | Outpatient (BNVA) | payer OTHER, SELFPAY | PROVIDERS: PCP Internal Medicine; Visit Provider Nurse Practitioner Family | DX: M17.12 Unilateral primary osteoarthritis, left knee (principal); M25.562 Pain in left knee; E66.01 Morbid (severe) obesity due to excess calories; Z68.42 Body mass index [BMI] 45.0-49.9, adult | CPT/HCPCS: 99202 ==

== ENCOUNTER 2022-11-29 08:00 | Outpatient (RCR) | payer OTHER, SELFPAY | END 2022-11-29 08:55 | disposition home or self-care (01) | LOC: HO.OT 08:00 | PROVIDERS: PCP Internal Medicine; Visit Provider Internal Medicine Rheumatology | DX: M32.9 Systemic lupus erythematosus, unspecified (principal); M19.90 Unspecified osteoarthritis, unspecified site | CPT/HCPCS: 29125; 97035; 97110; 97166; 97760 ==

== ENCOUNTER 2022-12-09 08:05 | Outpatient (REF) | payer OTHER, SELFPAY ==
[2022-12-09 08:53] LABS: Appearance Urine Clear; Color Urine Yellow; Glucose Urine UA Negative (Negative); Leukocyte Esterase Urine Small (1+) (Negative); Nitrite Urine Negative (Negative); PH 5.5 (5.0-9.0); Specific Gravity - Urine 1.015 (1.005-1.025); UMIC TRIGGER UA YES; Urine Blood Small (1+) (Negative); Urine Ketones Negative (Negative); Urine Protein 100 (2+) mg/dL (Neg-Trace)
[2022-12-09 09:06] LABS: Bacteria Urine None Seen (None Seen); RBC Urine 0-2 /HPF (0-2)
[2022-12-09 09:30] LABS: Creatinine Urine 130.59 mg/dL; Microalbum/Creatinine Ratio Ur 296.3 ug/mg cr
[2022-12-09 09:35] LABS: Alanine Aminotransferase 16 U/L (0-31); Albumin Level 3.6 g/dL (3.5-5.0); Alkaline Phosphatase 114 U/L (39-117); Anion Gap 10 (12-20); Aspartate Amino Transferase 17 U/L (5-31); Bilirubin Total 0.3 mg/dL (0.0-1.0); Blood Urea Nitrogen 16 mg/dL (9-16); Calcium 8.9 mg/dL (8.4-10.2); Carbon Dioxide 22 mmol/L (22-29); Chloride 113 mmol/L (96-108); Estimated Glomerular Filt Rate 46; Glucose Random 87 mg/dL (60-115); Iron 19 mcg/dL (30-160); Percent Iron Saturation 7 % (15-50); Potassium 4.4 mmol/L (3.3-5.1); Sodium 141 mmol/L (135-145); Total Iron Binding Capacity 287 mcg/dL (228-428); Total Protein 6.5 g/dL (6.5-8.0); Unsaturated Iron Binding 268 ug/dL
== END 2022-12-09 08:06 | disposition home or self-care (01) ==
LOC: HO.LAB 08:05
PROVIDERS: Absent Provider Internal Medicine Nephrology; PCP Internal Medicine; Visit Provider Internal Medicine
DX: N18.31 Chronic kidney disease, stage 3a (principal); R80.1 Persistent proteinuria, unspecified
CPT/HCPCS: 36415; 80053; 81001; 82043; 83540

== ENCOUNTER → 2022-12-16 08:55 | Outpatient (BNVA) | payer OTHER, SELFPAY | PROVIDERS: PCP Internal Medicine; Visit Provider Physician Assistant | DX: M17.12 Unilateral primary osteoarthritis, left knee (principal) | CPT/HCPCS: 20610; J7323 ==

== ENCOUNTER → 2022-12-23 08:50 | Outpatient (BNVA) | payer OTHER, SELFPAY | PROVIDERS: PCP Internal Medicine; Visit Provider Physician Assistant | DX: M17.12 Unilateral primary osteoarthritis, left knee (principal) | CPT/HCPCS: 20610; J7323 ==

== ENCOUNTER → 2022-12-30 12:24 | Outpatient (BNVA) | payer OTHER, SELFPAY | PROVIDERS: PCP Internal Medicine; Visit Provider Physician Assistant | DX: M17.12 Unilateral primary osteoarthritis, left knee (principal) | CPT/HCPCS: 20610; J7323 ==

== ENCOUNTER → 2023-01-05 14:37 | Outpatient (BNVA) | payer OTHER, SELFPAY | PROVIDERS: PCP Internal Medicine; Visit Provider Advanced Practice Midwife | DX: Z30.09 Encounter for other general counseling and advice on contraception (principal); E06.3 Autoimmune thyroiditis; E66.01 Morbid (severe) obesity due to excess calories; Z90.3 Acquired absence of stomach [part of]; Z87.898 Personal history of other specified conditions; Z68.41 Body mass index [BMI] 40.0-44.9, adult | CPT/HCPCS: 99212 ==

== ENCOUNTER 2023-01-12 13:00 | Outpatient (RCR) | payer OTHER, SELFPAY ==
--- NOTE | 2022-12-06 10:27 | MHC.PT.EP ---
[facility] [place] Office [place] Office [place] Office [address] David Iraheta [address] [phone] F: [phone] F: [phone] F: [phone] F: [phone] Physical Therapy Plan of Care Date of Evaluation: Date of Surgery: NA Diagnosis: Pt is a 37 female with dx of arthritis, bone to bone , started years ago. Assessment: Diane is a 37 year old female who is referred to PT for unilateral primary OA of L knee . She reports of having pain in L knee for several years. Her symptoms have progressed over years. On PT examination she presented with constant knee pain which is worse with standing, walking and stairs, moving knee after a period of rest, decreased B LE strength- L>R, impaired posture, gait and balance. She is independent with all ADLS but has pain with weight bearing activities and needs to take frequent rest breaks. She would benefit from skilled PT to address the aforementioned impairments and improve tolerance to functional activities. Frequency and Duration: The patient will be seen 2/week for 6 weeks Short Term Goals: 1. Pt will demonstrate initiation of HEP in 2 weeks 2. Pt will present with 50% decrease in pain which will enable her to tolerate walking for 30 minutes in 3 weeks. Fci Goals: 1. Pt will demonstrate an increase in muscle strength by 1 grade which will enable her to negotiate stairs with a pain no more than 2/10 in 5 weeks. 2. Pt will be independent with HEP for symptom management and maintenance following d/c in 6 weeks. Treatment Plan: Modalities to reduce pain, spasms and effusion. Manual therapy to restore motion and function. Therapeutic exercise to improve strength and flexibility. Neuromuscular re-education for posture and balance. Therapeutic activities to return to functional activities of daily living. Electronically signed by: Carolina Myers PT DPT Please sign and return to therapist. Thank you for your referral.
--- NOTE | 2023-01-25 14:30 | MHC.PT.DC ---
[facility] [place] Office [place] Office [place] Office [address] David Iraheta [address] [phone] F: [phone] F: [phone] F: [phone] F: [phone] Physical Therapy Discharge Report Diagnosis: Pt is a 37 female with dx of arthritis, bone to bone , started years ago. Date of Surgery: NA Date of Evaluation: 12/06/22 Date of Discharge: 01/25/23 Treatments to Date: 7 Cancellations to Date: 1 No Shows to Date: Discharge Status: Achieved Goals Improved Function Independent with HEP Discharge Summary: Diane completed 7 PT visits and has achieved all goals set for her. She is independent with her HEP as well. She is therefore being d/c from PT. Electronically signed by: Carolina Myers PT DPT Please sign and return to therapist. Thank you for your referral.
== END 2023-01-25 14:30 | disposition home or self-care (01) ==
LOC: HO.PT 13:00
PROVIDERS: PCP Internal Medicine; Visit Provider Physician Assistant
DX: M17.12 Unilateral primary osteoarthritis, left knee (principal)
CPT/HCPCS: 97110; 97161; 97530

== ENCOUNTER 2023-01-16 15:16 | Outpatient (AMB) | payer OTHER, SELFPAY ==
--- NOTE | 2023-01-16 15:23 | MHC.OFFVIS ---
Intake Vital Signs 01/16/23 15:24 Height 5 ft 4 in Weight 264 lb 8.875 oz BMI 45.4 BP 110/70 Blood Pressure Location Lt brachial Position Sitting Pulse 88 Intake Visit Reasons: Full incontinence of feces Intake Note: Diane presents in the office as a new patient. CC: She has been having incontinence - it happens in public where she will get the feelings that she has to have a BM and she is just unable to hold it. Allergies metformin [METFORMIN] Allergy (Intermediate, Verified 01/16/23 15:24) INFLAMMED GUMS, red gums, redness of gums doxycycline Adverse Reaction (Intermediate, Verified 01/16/23 15:24) Itching HPI HPI Comments History of Present Illness Details This is a 37y.o F with ? connective tissue disease for which she sees Dr Gulshan Cardozo, who presents to our office for fecal incontinence. Describe the fecal incontinence as urge incontinence related to when she is unable to make it to the bathroom. Her BMs are typically soft but formed. No blood in stool. Has been occuring for almost a year now. Gave vaginal to twins in 2020 (1 of them had intrauterine demise) and did suffer from perineal tear during the vaginal delivery. Also reports urinary yrge incontinence. Of note - pt also reports known Dx of some sort of connective tissue disease and has been told has weak muscles . She follows with arthritis treatment center and we do not have records at the time of evaluation. [facility] Medical History Autoimmune thyroiditis BMI 38.0-38.9,adult Depression Hypertension Intestinal malabsorption following gastrectomy Knee pain Lupus Mild recurrent major depression Morbid obesity with BMI of 40.0-44.9, adult Obesity (BMI 30-39.9) Open wound of thumb Physical exam Preeclampsia Proteinuria SLE (systemic lupus erythematosus related syndrome) Vaginal discharge Vitamin D deficiency Surgical History History of foot surgery History of open reduction and internal fixation (ORIF) procedure History of sleeve gastrectomy Status post biopsy of kidney Family History Father Asthma Mother No problems noted. Brother No problems noted. Brother No problems noted. Sister No problems noted. Social History Housing: Apartment Alcohol intake: never Patient Tobacco Use Status: Never used Tobacco e-Cigarette/Vaping Use: Never Used Second Hand Smoke Exposure: No service: No Current occupational status: unemployed Current occupational exposures/hazards: No Cognitive needs: No Hearing needs: No Vision needs: No Female Reproductive History Menstrual Age of Menarche: 11 Physical Exam Vital Signs: Last Vital Signs Pulse 88 01/16/23 15:24 BP 110/70 01/16/23 15:24 BMI result Body Mass Index 45.4 Gen appear: NAD HEENT: nonicteric, no cervical lymphadenopathy Chest: CTA CVS: Regular S1/S2 Abd: soft, nontender, nondistended, bowel sounds + Rectal: Myranda Burks MA present to multifocal button inspector. No ext anal tag or fissure noted. Digital exam with normal resting anal tone but poor anal tone on squeeze. Anal tone was also noted to be paradoxically high on bear down maneurver with inadequate pelvic descent. Int hemorrhoids. Ext: no peripheral edema Neuro: A/Ox3, noted to move all extremities spontaneously Psych: interacting appropriately Assessment & Plan Assessment & Plan (1) Bowel incontinence: Code(s): R15.9 - Full incontinence of feces (2) Morbid obesity with BMI of 40.0-44.9, adult: Code(s): E66.01 - Morbid (severe) obesity due to excess calories; Z68.41 - Body mass index [BMI] 40.0-44.9, adult Plan Discussed with the pt that will likely need multipronged approach which will include improvement in consistency of BM, use of antidiarrheal and further testing for pelvic floor. Given urge incontinence, she will also benefit from bowel retraining and to evacuate at specific times of the day to avoid sudden defecation urges. Plan: - Start fiber supplement - 0.5 tsp and then increase gradually to 1 tbsp mixed in water per day - PRN loperamide in AM larisa on days where she will have limited access to restrooms - Timed evacuations - XR defecography (to be done at [facility]) - Depending on results, will likely need ARMS as well as referral to PT. - Obtain Rheum notes - release signed today. Follow up in 8 weeks. Orders: Orders XR pelvis min 3V 01/16/23 R15.9 - Full incontinence of feces Coding Level of Care Code New Pt Level 4 (55869) Diagnoses Bowel incontinence R15.9 Morbid obesity with BMI of 40.0-44.9, adult E66.01; Z68.41
[2023-01-16 15:24] VITALS: BP 110/70; PULSE 88; BMI 45.4
== END 2023-01-16 15:47 | disposition home or self-care (01) ==
PROVIDERS: PCP Internal Medicine; Visit Provider Internal Medicine
DX: R15.9 Full incontinence of feces (principal); E66.01 Morbid (severe) obesity due to excess calories; Z68.41 Body mass index [BMI] 40.0-44.9, adult
CPT/HCPCS: 99204

== ENCOUNTER → 2023-01-16 15:16 | Outpatient (BNVA) | payer OTHER, SELFPAY | PROVIDERS: PCP Internal Medicine; Visit Provider Internal Medicine | DX: R15.9 Full incontinence of feces (principal); E66.01 Morbid (severe) obesity due to excess calories; Z68.42 Body mass index [BMI] 45.0-49.9, adult; Z90.3 Acquired absence of stomach [part of] | CPT/HCPCS: 99202 ==

== ENCOUNTER 2023-02-06 09:24 | Outpatient (AMB) | payer OTHER, SELFPAY ==
[2023-02-06 09:44] VITALS: BP 120/82; BMI 45.3
--- NOTE | 2023-02-06 09:44 | MHC.OFFVIS ---
Intake Vital Signs 02/06/23 09:44 Height 5 ft 4 in Weight 264 lb BMI 45.3 BP 120/82 Intake Visit Reasons: Annual Analysis Internship Required: No Information Interpreted: non-clinical & clinical Reading Tutor: Reading Tutor Present (Aidyn) Allergies metformin [METFORMIN] Allergy (Intermediate, Verified 02/06/23 09:47) INFLAMMED GUMS, red gums, redness of gums doxycycline Adverse Reaction (Intermediate, Verified 02/06/23 09:47) Itching Is last menstrual period known: Yes Last menstrual period: 01/24/23 Post menopausal: No HPI HPI Comments History of Present Illness Details Presenting for annual exam. No complaints. Last Pap/HPV was negative in 01/28 [facility] Medical History Autoimmune thyroiditis BMI 38.0-38.9,adult Depression Hypertension Intestinal malabsorption following gastrectomy Knee pain Lupus Mild recurrent major depression Morbid obesity with BMI of 40.0-44.9, adult Obesity (BMI 30-39.9) Open wound of thumb Physical exam Preeclampsia Proteinuria SLE (systemic lupus erythematosus related syndrome) Vaginal discharge Vitamin D deficiency Surgical History History of foot surgery History of open reduction and internal fixation (ORIF) procedure History of sleeve gastrectomy Status post biopsy of kidney Family History Father Asthma Mother No problems noted. Brother No problems noted. Brother No problems noted. Sister No problems noted. Social History Housing: Apartment Alcohol intake: never Patient Tobacco Use Status: Never used Tobacco e-Cigarette/Vaping Use: Never Used Second Hand Smoke Exposure: No service: No Current occupational status: unemployed Current occupational exposures/hazards: No Cognitive needs: No Hearing needs: No Vision needs: No Female Reproductive History Menstrual Age of Menarche: 11 Duration of menses: 6-7 days Date of last menstrual period: 01/24/23 control method: none Total pregnancies: 1 Full term: 1 Number of Living Children: 1 Multiple births: 1 Date of last pap smear: 01/21/22 (negative) History of abnormal pap smear: Yes (ASCUS 2010) Review of Systems Const All systems reviewed & are unremarkable except as noted in HPI and below Card Reports as per HPI Resp Reports as per HPI GI Reports as per HPI and Reports no additional complaints Reports as per HPI Physical Exam Vital Signs: Last Vital Signs BP 120/82 02/06/23 09:44 BMI result Body Mass Index 45.3 Const General: cooperative, healthy appearing and comfortable Chest Chest palpation & inspection: normal inspection of the chest and normal palpation of entire chest wall Breast/axilla inspection: normal inspection of the breasts and normal inspection of the axillae Breast/axilla palpation: normal palpation of the breasts, normal palpation of the axillae and no axillary lymphadenopathy Resp Effort & Inspection: normal respiratory effort Auscultation: clear to auscultation bilaterally Percussion: percussion normal Cardio Palpation: normal PMI Rate: regular rate Rhythm: regular rhythm Heart sounds: no murmurs and no rubs Peripheral pulses: Peripheral pulses 2+ throughout GI Inspection: Yes normal to inspection Palpation (GI): Soft to palpation, nontender, no guarding, not rigid and No hepatosplenomegaly present Percussion: Yes normal to percussion Auscultation: normal bowel sounds Rectal Exam - Female: deferred General: Yes bladder normal to palpation External Female Exam: No lesion Speculum Exam - Vagina: normal appearance of the vagina, normal palpation, normal vaginal discharge and not erythematous Speculum Exam - Cervix: normal appearance of the cervix and normal palpation Bimanual exam- vagina & uterus: normal bimanual exam, normal palpation, uterine size normal, bladder normal to palpation, consistency normal and normal palpation Bimanual Exam- Adnexa, other: normal adnexae, no masses and no tenderness Assessment & Plan Assessment & Plan (1) Well woman exam: Code(s): Z01.419 - Encounter for gynecological examination (general) (routine) without abnormal findings Plan: Cotesting not indicated this year. Counseled the patient about the recommended dietary allowance of 1000 mg of Calcium & 600 IU of vitamin D. The patient was instructed to perform monthly self-breast exams and to schedule an annual exam in a year; All questions answered and the patient verbalized understanding. Instructed the patient to schedule annual exam in a year Coding Level of Care Code Est Pt Prev Care 18-39y(49069) Diagnoses Well woman exam Z01.419
== END 2023-02-06 10:03 | disposition home or self-care (01) ==
LOC: HO.HWS 09:24
PROVIDERS: PCP Internal Medicine; Visit Provider Obstetrics & Gynecology
DX: Z01.419 Encounter for gynecological examination (general) (routine) without abnormal findings (principal)
CPT/HCPCS: 99395

== ENCOUNTER → 2023-02-06 09:24 | Outpatient (BNVA) | payer OTHER, SELFPAY | PROVIDERS: PCP Internal Medicine; Visit Provider Obstetrics & Gynecology ==

== ENCOUNTER 2023-03-10 09:01 | Outpatient (REF) | payer OTHER, SELFPAY | END 2023-03-10 09:02 | disposition home or self-care (01) | LOC: HO.XRAY 09:01 | PROVIDERS: PCP Internal Medicine; Visit Provider Internal Medicine | DX: Z13.89 Encounter for screening for other disorder (principal) ==

== ENCOUNTER 2023-04-10 09:37 | Outpatient (AMB) | payer OTHER, SELFPAY ==
--- NOTE | 2023-04-10 09:40 | MHC.OFFVIS ---
Intake Vital Signs 04/10/23 09:42 Height 5 ft 4 in Weight 266 lb 12.149 oz BMI 45.8 BP 105/58 L Blood Pressure Location Lt radial Position Sitting Pulse 59 Intake Visit Reasons: 2 mnth follow up Intake Note: Diane presents in the office as a 2 month follow up. CC: She states that she is still the same - she was told something during the test - she was told there is a sac on the side so now she is second guessing her bowel movements. Allergies metformin [METFORMIN] Allergy (Intermediate, Verified 04/10/23 09:43) INFLAMMED GUMS, red gums, redness of gums doxycycline Adverse Reaction (Intermediate, Verified 04/10/23 09:43) Itching HPI HPI Comments History of Present Illness Details This is a 37y.o F with ? connective tissue disease for which she sees Dr Gulshan Cardozo, who presents to our office for fecal incontinence. 01/16/23: Describe the fecal incontinence as urge incontinence related to when she is unable to make it to the bathroom. Her BMs are typically soft but formed. No blood in stool. Has been occuring for almost a year now started within a few months after giving . Gave vaginal to twins in 2020 (1 of them had intrauterine demise) and did suffer from perineal tear during the vaginal delivery. Also reports urinary urge incontinence. Of note - pt also reports known Dx of some sort of connective tissue disease and has been told has weak muscles . She follows with [facility] treatment center and we do not have records at the time of evaluation. 01/27/[address] Kristopher Cardozo reviewed. Getting tx for SLE, primary OA and fibromyalgia. On hydroxychloroquine 400 Recently started on Leflunomide 10mg once daily at the end of October. Will check with pt if diarrhea started after starting Leuflonamide as diarrhea a common side effect and can last 2-3 months after initiation. Low suspicion for colitis given recent initiation of med, colitis typically noted after 1-2 y of therapy. 04/10/23: Pt reports she actually never started leflunomide due to reported interaction with one of her antidepressants. Has been working on times evacuations but did not remember to take fiber supplementation or antidiarrheals. XR defecography reviewed: Squeeze angle does not decrease considerably compared to rest angle. Pelvic descent of 4 cm. Incompletely emptying rectocele measuring 4x5cm. (report scanned) [facility] Medical History Vaginal discharge Physical exam Open wound of thumb Lupus Mild recurrent major depression Morbid obesity with BMI of 40.0-44.9, adult Vitamin D deficiency BMI 38.0-38.9,adult Intestinal malabsorption following gastrectomy Preeclampsia Obesity (BMI 30-39.9) Knee pain Hypertension Depression Proteinuria Autoimmune thyroiditis SLE (systemic lupus erythematosus related syndrome) Surgical History History of foot surgery History of open reduction and internal fixation (ORIF) procedure History of sleeve gastrectomy Status post biopsy of kidney Family History Father Asthma Mother No problems noted. Brother No problems noted. Brother No problems noted. Sister No problems noted. Social History Housing: Apartment Alcohol intake: never Patient Tobacco Use Status: Never used Tobacco e-Cigarette/Vaping Use: Never Used Second Hand Smoke Exposure: No service: No Current occupational status: unemployed Current occupational exposures/hazards: No Cognitive needs: No Hearing needs: No Vision needs: No Female Reproductive History Menstrual Age of Menarche: 11 Physical Exam Vital Signs: Last Vital Signs Pulse 59 04/10/23 09:42 BP 105/58 L 04/10/23 09:42 BMI result Body Mass Index 45.8 Assessment & Plan Assessment & Plan (1) Bowel incontinence: Code(s): R15.9 - Full incontinence of feces (2) Morbid obesity with BMI of 40.0-44.9, adult: Code(s): E66.01 - Morbid (severe) obesity due to excess calories; Z68.41 - Body mass index [BMI] 40.0-44.9, adult Plan Bowel incontinence likely secondary to pelvic floor prolapse which has led to an incompletely emptying rectocele. Suspect leading to ineffective evacuation and fecal seepage/incontinence. Risk factors include twin and obstetric trauma including perineal tear during vaginal delivery. Plan: - Pelvic floor therapy referral requested. - [place] [facility] [place] for evaluation of anterior rectocele - Reminded to start fiber supplement as bulking agent - start with 0.5 tsp and then increase gradually to 1 tbsp mixed in water per day - PRN loperamide in AM larisa on days where she will have limited access to restrooms - Timed evacuations Follow up in 4 months Orders: Referrals General Surgery Referral N81.6 - Rectocele, R15.9 - Full incontinence of feces Pelvic Environmental Educator Referral N81.6 - Rectocele, R15.9 - Full incontinence of feces Coding Level of Care Code Est Pt Level 4 (10335) Diagnoses Bowel incontinence R15.9 Morbid obesity with BMI of 40.0-44.9, adult E66.01; Z68.41
[2023-04-10 09:42] VITALS: BP 105/58; PULSE 59; BMI 45.8
== END 2023-04-10 10:09 | disposition home or self-care (01) ==
PROVIDERS: PCP Internal Medicine; Visit Provider Internal Medicine
DX: R15.9 Full incontinence of feces (principal); E66.01 Morbid (severe) obesity due to excess calories; Z68.41 Body mass index [BMI] 40.0-44.9, adult
CPT/HCPCS: 99214

== ENCOUNTER → 2023-04-10 09:37 | Outpatient (BNVA) | payer OTHER, SELFPAY | PROVIDERS: PCP Internal Medicine; Visit Provider Internal Medicine | DX: R15.9 Full incontinence of feces (principal); N81.6 Rectocele; E66.01 Morbid (severe) obesity due to excess calories; K90.49 Malabsorption due to intolerance, not elsewhere classified; Z68.42 Body mass index [BMI] 45.0-49.9, adult; Z90.3 Acquired absence of stomach [part of] | CPT/HCPCS: 99212 ==

== ENCOUNTER 2023-04-15 10:56 | Emergency (ER) | payer OTHER, SELFPAY ==
[2023-04-15 11:20] VITALS: BP 136/80; PULSE 81; RESP 17; TEMP 36.1; O2SAT 98; BMI 45.7
--- NOTE | 2023-04-15 11:22 | ED.URI ---
HPI - URI/Sore Throat General Chief Complaint: Upper Respiratory Symptoms Stated Complaint: ear/ throat pain Time Seen by Provider: 04/15/23 11:39 Source: patient Mode of arrival: ambulatory Limitations: no limitations History of Present Illness HPI Narrative: 35 yo female with history of SLE on plaquenil, osteoathritis, CKD, depression, obesity, HTN here with complaints of intermittent ALONZO, dry cough and itchy/sore throat for 1 week. Patient denies any fevers, chills, vomiting, diarrhea, abdominal pain, neck pain, neck stiffness, skin rash. She has not tried any [id number] medications. Related Data Home Medications Medication Instructions Recorded Confirmed trazodone 50 mg tablet 25 - 50 mg PO BEDTIME 01/20/22 01/05/23 furosemide 20 mg tablet 20 mg PO DAILY PRN edema 04/22/22 01/05/23 bupropion HCl 300 mg 24 hr tablet, 300 mg PO DAILY 05/26/22 01/05/23 extended release escitalopram oxalate 10 mg tablet mg PO 02/06/23 valsartan 160 mg tablet 160 mg PO DAILY 02/06/23 clotrimazole 1 % topical cream appl topical DAILY 04/10/23 duloxetine 30 mg capsule,delayed 30 mg PO BID 04/10/23 release Previous Rx's Medication Instructions Recorded hydroxychloroquine 200 mg tablet 200 mg PO BID #60 tabs 10/29/20 (Plaquenil) fluticasone propionate 50 1 spray intranasal DAILY 30 days 01/21/21 mcg/actuation nasal #150 mL spray,suspension (Flonase Allergy Relief) albuterol sulfate 90 mcg/actuation 2 puff PO Q4-6H PRN for wheezing 02/16/21 aerosol inhaler (ProAir HFA) #8.5 grams acetaminophen 325 mg capsule 650 mg (2 x 325 mg) PO Q4H PRN 07/02/21 (Tylenol) pain #30 caps cholecalciferol (vitamin D3) 125 125 mcg PO DAILY #90 caps 04/22/22 mcg (5,000 unit) capsule gabapentin 300 mg capsule 300 mg PO BEDTIME pain #30 caps 10/11/22 Shower Chair #1 ea 11/01/22 cane #1 ea 11/01/22 hinge brace #1 ea 11/01/22 loratadine 10 mg tablet 10 mg PO DAILY PRN allergic 03/02/23 symptoms 90 days #90 tabs levothyroxine 25 mcg tablet 25 mcg PO DAILY 90 days #90 tabs 04/01/23 cetirizine 10 mg tablet 10 mg PO DAILY PRN allergy 04/15/23 symptoms #30 tabs triamcinolone acetonide 55 mcg 2 spray intranasal DAILY #16.9 mL 04/15/23 nasal spray aerosol (Nasal Allergy) Allergies Allergy/AdvReac Type Severity Reaction Status Date / Time metformin [METFORMIN] Allergy Intermediate INFLAMMED Verified 04/15/23 11:20 GUMS, red gums, redness of gums doxycycline AdvReac Intermediate Itching Verified 04/15/23 11:20 Review of Systems Neurologic: Denies Abnormal speech present PMFSH Past Medical History Attestation statement: The following information was validated with the patient. Source: old records reviewed and nursing notes reviewed Medical History Vaginal discharge Physical exam Open wound of thumb Lupus Mild recurrent major depression Morbid obesity with BMI of 40.0-44.9, adult Vitamin D deficiency BMI 38.0-38.9,adult Intestinal malabsorption following gastrectomy Preeclampsia Obesity (BMI 30-39.9) Knee pain Hypertension Depression Proteinuria Autoimmune thyroiditis SLE (systemic lupus erythematosus related syndrome) Surgical History History of foot surgery History of open reduction and internal fixation (ORIF) procedure History of sleeve gastrectomy Status post biopsy of kidney Family History Family History Father Asthma Mother No problems noted. Brother No problems noted. Brother No problems noted. Sister No problems noted. Social History Social History Housing: Apartment Alcohol intake: never Patient Tobacco Use Status: Never used Tobacco e-Cigarette/Vaping Use: Never Used Second Hand Smoke Exposure: No Advance Directives: No Advance Directives Information Provided: Yes service: No Current occupational status: unemployed Current occupational exposures/hazards: No Cognitive needs: No Hearing needs: No Vision needs: No Physical Exam Vital Signs: Vital Signs: Last Vital Signs Temp 97 F 04/15/23 11:20 Pulse 81 10/07/23 11:20 Resp 17 04/15/23 11:20 BP 136/80 04/15/23 11:20 Pulse Ox 98 04/15/23 11:20 O2 Del Method Room Air 04/15/23 11:20 BMI result Body Mass Index 45.7 Const: General: cooperative, healthy appearing, comfortable and no acute distress Orientation/consciousness: patient oriented x3 Limitations: no limitations HEENT: Head: Yes normal to inspection Ears: hearing grossly normal bilaterally and TM's normal bilaterally General nose exam: Normal external nose present Face and sinus: Yes normal facial exam Mouth: Normal oral and palatal mucosa present Throat: Yes posterior oropharynx normal, Yes tonsils normal and Yes uvula midline Eyes: General: appearance normal, both eyes and all related structures Pupils: Equal, round and reactive pupils present Neck: Neck: Yes normal visual inspection, Yes full ROM, Yes no lymphadenopathy and Yes no meningeal signs Chest: Chest palpation & inspection: normal inspection of the chest Resp: Effort & Inspection: normal respiratory effort Auscultation: clear to auscultation bilaterally Cardio: Rate: regular rate Rhythm: regular rhythm Peripheral pulses: Peripheral pulses 2+ throughout GI: Inspection: Yes normal to inspection Palpation (GI): Soft to palpation and nontender Auscultation: normal bowel sounds Back/Spine/Pelvis: Thoracic/Lumbar Spine: thoracic and lumbar spine normal to inspection Skin: General skin exam: no rashes or lesions noted Neuro: General: patient oriented x3, no meningeal signs, no focal motor deficits and normal sensation to monofilament Cranial nerves: Yes Equal, round and reactive pupils present Cognition (Neuro): normal cognition Speech: No Abnormal speech present Gait exam (Neuro): Normal gait present Motor exam (neuro): 5/5 motor strength present throughout Extrem: General: Yes normal to inspection, Yes no pedal edema and Yes no calf tenderness Course Course Course Narrative: RME - 37 y/o female with history of lupus, obesity, HTN, presenting to the ER for evaluation 10 days of cough, sore throat, ear pain. Baby at home with a similar cough. No fevers. VSS in triage Plan: viral swab, strep swab. EMC Reevaluation(s) Reevaluation #1: testing all negative. Likely viral syndrome or allergic rhinitis. Will discharge home with recommendations to take a daily allergy medication, nasal spray and supportive care. Recommend follow-up with primary care doctor for any continued symptoms. Medical Decision Making Medical Decision Making [facility] Narrative: 35 yo female with history of SLE on plaquenil, osteoathritis, CKD, depression, obesity, HTN here with complaints of intermittent ALONZO, dry cough and itchy/sore throat for 1 week. Patient denies any fevers, chills, vomiting, diarrhea, abdominal pain, neck pain, neck stiffness, skin rash. She has not tried any [id number] medications. Exam is benign will send testing for flu, COVID, RSV and strep Differential Diagnosis Differential Diagnoses: The differential diagnosis associated with the presentation includes viral syndrome, strep pharyngitis, allergic rhinitis Admission/Observation Consideration of admission/observation: Escalation of care including admission/observation considered testing is benign. No hypoxia or tachypnea. Normal vital signs. Lungs are clear. No need for admission or supplemental oxygen or further testing Lab Data [facility] Lab Attestation statement: I reviewed the patient's lab results. testing all negative Labs: Lab Results 04/15/23 Range/Units 11:24 Influenza Type A (PCR) NEGATIVE (Negative) Influenza Type B (PCR) NEGATIVE (Negative) RSV RNA Qual (PCR) NEGATIVE (Negative) SARS-CoV-2 RNA (RT-PCR) NEGATIVE (Negative) S. pyogenes GrpA LEIGHANN Negative (Negative) Prescription Management I considered prescription management with: Antibiotic Discharge Plan Discharge Clinical Impression: Allergic rhinitis Patient Disposition: Home, Self-Care Instructions: Allergic Rhinitis (ED) Additional Instructions: Testing for strep, flu, COVID, RSV are negative take medications as prescribed alternate Motrin and Tylenol as needed for any pain or fever see your primary care doctor next week for any continued symptoms Prescriptions: New triamcinolone acetonide [Nasal Allergy] 55 mcg aerosol,spray 2 spray intranasal DAILY Qty: 16.9 0RF Rx Instructions: administer into each nostril cetirizine 10 mg tablet 10 mg PO DAILY PRN (Reason: allergy symptoms) Qty: 30 0RF No Action albuterol sulfate [ProAir HFA] 90 mcg/actuation HFA aerosol inhaler 2 puff PO Q4-6H PRN (Reason: for wheezing) Qty: 8.5 0RF (DME) hinge brace See Rx Instructions .Route .MEDSUPPLY Qty: 1 0RF Rx Instructions: HEAVY DUTY (DME) cane Device See Rx Instructions .Route Qty: 1 0RF Rx Instructions: HEAVY DUTY (DME) Shower Chair Misc See Rx Instructions .Route Qty: 1 0RF Rx Instructions: HEAVY DUTY loratadine 10 mg tablet 10 mg PO DAILY PRN (Reason: allergic symptoms) 90 Days Qty: 90 0RF levothyroxine 25 mcg tablet 25 mcg PO DAILY 90 Days Qty: 90 0RF acetaminophen [Tylenol] 325 mg capsule 650 mg PO Q4H PRN (Reason: pain) Qty: 30 0RF fluticasone propionate [Flonase Allergy Relief] 50 mcg/actuation spray,suspension 1 spray intranasal DAILY 30 Days Qty: 150 0RF Rx Instructions: administer into each nostril bupropion HCl 300 mg tablet extended release 24 hr 300 mg PO DAILY hydroxychloroquine [Plaquenil] 200 mg tablet 200 mg PO BID Qty: 60 3RF trazodone 50 mg tablet 25 - 50 mg PO BEDTIME furosemide 20 mg tablet 20 mg PO DAILY PRN (Reason: edema) escitalopram oxalate 10 mg tablet PO valsartan 160 mg tablet 160 mg PO DAILY cholecalciferol (vitamin D3) 125 mcg (5,000 unit) capsule 125 mcg PO DAILY Qty: 90 3RF gabapentin 300 mg capsule 300 mg PO BEDTIME Qty: 30 0RF clotrimazole 1 % cream topical DAILY duloxetine 30 mg capsule,delayed release(DR/EC) 30 mg PO BID Referrals: Delores Mancia MD [Primary Care Provider] - 1 week (for continued symptoms ) Interventions: ED Discharge Assessment Last Done: 04/15/23 12:27 Discharge Date/Time: 04/15/23 12:28
== END 2023-04-15 12:28 | disposition home or self-care (01) ==
PROVIDERS: Emergency Provider Emergency Medicine Emergency Medical Services; PCP Internal Medicine
DX: J30.9 Allergic rhinitis, unspecified (principal); J02.9 Acute pharyngitis, unspecified; Z20.822 Contact with and (suspected) exposure to COVID-19; Z20.828 Contact with and (suspected) exposure to other viral communicable diseases
CPT/HCPCS: 0241U; 87651; 99282; 99283

== ENCOUNTER 2023-05-09 08:48 | Outpatient (AMB) | payer OTHER, SELFPAY ==
--- NOTE | 2023-05-09 09:37 | MHC.OFFVISWM ---
Intake VS Expanded 05/09/23 09:44 BP 124/79 Blood Pressure Location Rt brachial Blood Pressure Position Sitting Pulse 68 Pulse Source Pulse Oximeter Temp 97.8 F Temperature Source Temporal Artery Scan Pulse Oximetry 99 Oxygen Delivery Method Room Air Height 5 ft 4 in Weight 259 lb BMI 44.5 Body Fat % 48.5 Body Fat Mass 125.4 Fat Free Mass 133.4 Visceral Fat Rating 14.0 Body Water % 36.9 Body Water Mass 95.4 Muscle Mass/Score 126.6 Basal Metabolic Rate/Score 1,912 Intake Visit Reasons: follow up SWL Allergies metformin [METFORMIN] Allergy (Intermediate, Verified 05/09/23 09:39) INFLAMMED GUMS, red gums, redness of gums doxycycline Adverse Reaction (Intermediate, Verified 05/09/23 09:39) Itching Medication List - Last Reconciled 05/09/23 by TRISTA Mckeon acetaminophen (Tylenol) 650 mg (2 x 325 mg) PO Q4H PRN albuterol sulfate 90 mcg/actuation (ProAir HFA) 2 puffs PO Q4-6H PRN bupropion HCl 300 mg PO DAILY cane HEAVY DUTY cetirizine 10 mg PO DAILY PRN cholecalciferol (vitamin D3) 125 mcg PO DAILY clotrimazole 1% appl topical DAILY duloxetine 30 mg PO BID escitalopram oxalate mg PO fluticasone propionate 50 mcg/actuation (Flonase Allergy Relief) 1 spray intranasal DAILY 30 days furosemide 20 mg PO DAILY PRN [hinge brace HEAVY DUTY] hydroxychloroquine (Plaquenil) 200 mg PO BID levothyroxine 25 mcg PO DAILY 90 days loratadine 10 mg PO DAILY PRN 90 days Shower Chair HEAVY DUTY trazodone 25 - 50 mg PO BEDTIME triamcinolone acetonide (Nasal Allergy) 2 sprays intranasal DAILY valsartan 160 mg PO DAILY HPI HPI Comments History of Present Illness Details This?is a?37?yo female who is s/p LSG 11/24/2017. Presents for 5 year 5 month post op visit. Weight at last visit on 05/31/2022 was 249.6 pounds with a BMI of 42.8, weight today is 259 pounds, representing a 9.4 pound weight gain with a BMI today of 44.5.? No complaints of nausea, emesis, abdominal pain or reflux, or constipation. Present meal plan: given at last visit almost a year ago breakfast- 2 eggs, 1oz cheese, can add veg lunch- 3-4oz protein, up to 4oz veg dinner- same as lunch snack- protein bar 20g Exercise routine includes: limited by pain, was recently started on a new med by stringed instrument assembler which has helped likes walking Did the patient ever have any of these conditions and are they resolved or still being treated? GERD: rare, with triggers (greasy foods, red meats- tries to avoid) ERIC:? none DM:? never HTN:? never (valsartan is for kidneys) Hyperlipidemia:? never? Post op complications:? had a readmission for kidney problems 2 months postop [facility] Medical History Vaginal discharge Physical exam Open wound of thumb Lupus Mild recurrent major depression Morbid obesity with BMI of 40.0-44.9, adult Vitamin D deficiency BMI 38.0-38.9,adult Intestinal malabsorption following gastrectomy Preeclampsia Obesity (BMI 30-39.9) Knee pain Hypertension Depression Proteinuria Autoimmune thyroiditis SLE (systemic lupus erythematosus related syndrome) Surgical History History of foot surgery History of open reduction and internal fixation (ORIF) procedure History of sleeve gastrectomy Status post biopsy of kidney Family History Father Asthma Mother No problems noted. Brother No problems noted. Brother No problems noted. Sister No problems noted. Social History Housing: Apartment Alcohol intake: never Patient Tobacco Use Status: Never used Tobacco e-Cigarette/Vaping Use: Never Used Second Hand Smoke Exposure: No service: No Current occupational status: unemployed Current occupational exposures/hazards: No Cognitive needs: No Hearing needs: No Vision needs: No Female Reproductive History Menstrual Age of Menarche: 11 Physical Exam Const General: cooperative, comfortable and no acute distress Orientation/consciousness: patient oriented x3 GI Other: soft, nontender, nondistended, incisions well healed, no hernia, no masses Neuro General: patient oriented x3 Assessment & Plan Assessment & Plan (1) Status post sleeve gastrectomy: Code(s): Z90.3 - Acquired absence of stomach [part of] (2) Morbid obesity with BMI of 40.0-44.9, adult: Code(s): E66.01 - Morbid (severe) obesity due to excess calories; Z68.41 - Body mass index [BMI] 40.0-44.9, adult Plan Pt was not consistent with previous plan but would like to try again with a high protein meal plan. Her portion sizes sound appropriate but she is likely not getting enough protein. Discussed new plan of 2 Premier Protein adame, 1 snack (CC/GY/bar) and one meal of 6-8 forks protein, 6-8 forks salad/veg. Encouraged pt to continue walking as her new med is helping with pain control. Labs ordered. RTC 6 weeks for accountability, sent pt a text and encouraged her to reach out between appts with any questions. Patient is morbidly obese and is not considered stable at this time. I spent a total of 30 minutes reviewing/updating records, examining the patient and counseling the patient on weight management as detailed above. Orders: Orders Insulin Today Z90.3 - Acquired absence of stomach [part of] Lipid Panel Today Z90.3 - Acquired absence of stomach [part of] IRON PROFILE Today Z90.3 - Acquired absence of stomach [part of] Complete Blood Count Auto Diff Today Z90.3 - Acquired absence of stomach [part of] Vitamin B12 and Folate Today Z90.3 - Acquired absence of stomach [part of] Zinc Today Z90.3 - Acquired absence of stomach [part of] Comprehensive Met. Panel Today Z90.3 - Acquired absence of stomach [part of] Vitamin B1 Today Z90.3 - Acquired absence of stomach [part of] C Reactive Protein Today Z90.3 - Acquired absence of stomach [part of] PTHI Today Z90.3 - Acquired absence of stomach [part of] Vitamin D 25-OH Total Today Z90.3 - Acquired absence of stomach [part of] Vitamin A Today Z90.3 - Acquired absence of stomach [part of] Ferritin Today Z90.3 - Acquired absence of stomach [part of] TSH reflex Free T4 Today Z90.3 - Acquired absence of stomach [part of] Hemoglobin A1c Today Z90.3 - Acquired absence of stomach [part of] Coding Level of Care Code Est Pt Level 4 (79611) Diagnoses Status post sleeve gastrectomy Z90.3 Morbid obesity with BMI of 40.0-44.9, adult E66.01; Z68.41
--- NOTE | 2023-05-09 09:37 | MHC.OFFVISWM ---
Intake VS Expanded 05/09/23 09:44 BP 124/79 Blood Pressure Location Rt brachial Blood Pressure Position Sitting Pulse 68 Pulse Source Pulse Oximeter Temp 97.8 F Temperature Source Temporal Artery Scan Pulse Oximetry 99 Oxygen Delivery Method Room Air Height 5 ft 4 in Weight 259 lb BMI 44.5 Body Fat % 48.5 Body Fat Mass 125.4 Fat Free Mass 133.4 Visceral Fat Rating 14.0 Body Water % 36.9 Body Water Mass 95.4 Muscle Mass/Score 126.6 Basal Metabolic Rate/Score 1,912 Intake Visit Reasons: follow up SWL Allergies metformin [METFORMIN] Allergy (Intermediate, Verified 05/09/23 09:39) INFLAMMED GUMS, red gums, redness of gums doxycycline Adverse Reaction (Intermediate, Verified 05/09/23 09:39) Itching Medication List - Last Reconciled 05/09/23 by TRISTA Mckeon acetaminophen (Tylenol) 650 mg (2 x 325 mg) PO Q4H PRN albuterol sulfate 90 mcg/actuation (ProAir HFA) 2 puffs PO Q4-6H PRN bupropion HCl 300 mg PO DAILY cane HEAVY DUTY cetirizine 10 mg PO DAILY PRN cholecalciferol (vitamin D3) 125 mcg PO DAILY clotrimazole 1% appl topical DAILY duloxetine 30 mg PO BID escitalopram oxalate mg PO fluticasone propionate 50 mcg/actuation (Flonase Allergy Relief) 1 spray intranasal DAILY 30 days furosemide 20 mg PO DAILY PRN [hinge brace HEAVY DUTY] hydroxychloroquine (Plaquenil) 200 mg PO BID levothyroxine 25 mcg PO DAILY 90 days loratadine 10 mg PO DAILY PRN 90 days Shower Chair HEAVY DUTY trazodone 25 - 50 mg PO BEDTIME triamcinolone acetonide (Nasal Allergy) 2 sprays intranasal DAILY valsartan 160 mg PO DAILY PFSH Medical History Vaginal discharge Physical exam Open wound of thumb Lupus Mild recurrent major depression Morbid obesity with BMI of 40.0-44.9, adult Vitamin D deficiency BMI 38.0-38.9,adult Intestinal malabsorption following gastrectomy Preeclampsia Obesity (BMI 30-39.9) Knee pain Hypertension Depression Proteinuria Autoimmune thyroiditis SLE (systemic lupus erythematosus related syndrome) Surgical History History of foot surgery History of open reduction and internal fixation (ORIF) procedure History of sleeve gastrectomy Status post biopsy of kidney Family History Father Asthma Mother No problems noted. Brother No problems noted. Brother No problems noted. Sister No problems noted. Social History Housing: Apartment Alcohol intake: never Patient Tobacco Use Status: Never used Tobacco e-Cigarette/Vaping Use: Never Used Second Hand Smoke Exposure: No service: No Current occupational status: unemployed Current occupational exposures/hazards: No Cognitive needs: No Hearing needs: No Vision needs: No Female Reproductive History Menstrual Age of Menarche: 11 Physical Exam Vital Signs: Last Vital Signs Temp 97.8 F 05/09/23 09:44 Pulse 68 05/09/23 09:44 BP 124/79 05/09/23 09:44 Pulse Ox 99 05/09/23 09:44 Oxygen Delivery Method Room Air 05/09/23 09:44 BMI result Body Mass Index 44.5 Assessment & Plan Assessment & Plan Orders: Orders Insulin Today Z90.3 - Acquired absence of stomach [part of] Lipid Panel Today Z90.3 - Acquired absence of stomach [part of] IRON PROFILE Today Z90.3 - Acquired absence of stomach [part of] Complete Blood Count Auto Diff Today Z90.3 - Acquired absence of stomach [part of] Vitamin B12 and Folate Today Z90.3 - Acquired absence of stomach [part of] Zinc Today Z90.3 - Acquired absence of stomach [part of] Comprehensive Met. Panel Today Z90.3 - Acquired absence of stomach [part of] Vitamin B1 Today Z90.3 - Acquired absence of stomach [part of] C Reactive Protein Today Z90.3 - Acquired absence of stomach [part of] PTHI Today Z90.3 - Acquired absence of stomach [part of] Vitamin D 25-OH Total Today Z90.3 - Acquired absence of stomach [part of] Vitamin A Today Z90.3 - Acquired absence of stomach [part of] Ferritin Today Z90.3 - Acquired absence of stomach [part of] TSH reflex Free T4 Today Z90.3 - Acquired absence of stomach [part of] Hemoglobin A1c Today Z90.3 - Acquired absence of stomach [part of] Coding Level of Care Code Est Pt Level 4 (48786)
[2023-05-09 09:44] VITALS: BP 124/79; PULSE 68; TEMP 36.6; O2SAT 99; BMI 44.5
== END 2023-05-09 10:08 | disposition home or self-care (01) ==
PROVIDERS: PCP Internal Medicine; Visit Provider Physician Assistant Surgical
DX: E66.01 Morbid (severe) obesity due to excess calories (principal); Z68.41 Body mass index [BMI] 40.0-44.9, adult; Z90.3 Acquired absence of stomach [part of]; Z98.84 Bariatric surgery status
CPT/HCPCS: 99214

== ENCOUNTER → 2023-05-09 08:48 | Outpatient (BNVA) | payer OTHER, SELFPAY | PROVIDERS: PCP Internal Medicine; Visit Provider Physician Assistant Surgical | DX: E66.01 Morbid (severe) obesity due to excess calories (principal); Z90.3 Acquired absence of stomach [part of]; Z68.41 Body mass index [BMI] 40.0-44.9, adult | CPT/HCPCS: 99212 ==

== ENCOUNTER 2023-06-12 06:09 | Outpatient (REF) | payer OTHER, SELFPAY ==
[2023-06-12 06:42] LABS: MANUAL DIFF FLAG NO
[2023-06-12 07:43] LABS: Basophils Absolute Auto 0.1 X10*3/uL (0.0-0.2); Basophils Percent Auto 0.9 % (0-2); Eosinophils Absolute Auto 0.1 X10*3/uL (0.0-0.4); Eosinophils Percent Auto 1.5 % (0-4); Hematocrit 33.2 % (37.0-47.0); Hemoglobin 10.6 g/dl (12.0-16.0); Imm Gran Abs Auto 0.02 X10*3/uL (0.00-0.03); Imm Gran Pct Auto 0.4 % (0.0-0.4); Lymphocytes Absolute Auto 1.1 X10*3/uL (1.2-4.9); Lymphocytes Percent Auto 21.3 % (20-40); Mean Corpuscular HGB Conc 31.9 g/dl (31.0-35.0); Mean Corpuscular Hemoglobin 25.2 pg (27.0-33.0); Mean Platelet Volume 11.2 fL (9.4-12.3); Monocytes Absolute Auto 0.5 X10*3/uL (0.1-1.2); Monocytes Percent Auto 9.4 % (2-11); Neutrophils Absolute Auto 3.5 x10*3/uL (2.0-8.3); Neutrophils Percent Auto 66.5 % (45-73); Platelet Count 217 X10*3/uL (160-400); Red Cell Distribution Width 17.2 % (11.0-16.0); White Blood Count 5.3 X10*3/uL (4.8-10.8)
[2023-06-12 07:52] LABS: Estimated Average Glucose 94 mg/dL; Hemoglobin A1c % 4.9 % (<6.0)
[2023-06-12 08:18] LABS: Alanine Aminotransferase 11 U/L (0-31); Albumin Level 3.3 g/dL (3.5-5.0); Alkaline Phosphatase 75 U/L (39-117); Anion Gap 11 (12-20); Aspartate Amino Transferase 12 U/L (5-31); Bilirubin Total 0.3 mg/dL (0.0-1.0); Blood Urea Nitrogen 17 mg/dL (9-16); C Reactive Protein 0.17 mg/dL (< or = 0.50); Calcium 8.6 mg/dL (8.4-10.2); Carbon Dioxide 19 mmol/L (22-29); Chloride 114 mmol/L (96-108); Cholesterol 154 mg/dL (<200); Estimated Glomerular Filt Rate 50; Glucose Random 89 mg/dL (60-115); HDL Cholesterol 41 mg/dL (>40); Iron 34 mcg/dL (30-160); LDL Cholesterol Calculated 97 mg/dL (<100); Percent Iron Saturation 13 % (15-50); Potassium 4.3 mmol/L (3.3-5.1); Sodium 140 mmol/L (135-145); Total Iron Binding Capacity 261 mcg/dL (228-428); Total Protein 6.4 g/dL (6.5-8.0); Triglycerides 81 mg/dL (<150); Unsaturated Iron Binding 227 ug/dL
[2023-06-12 08:35] LABS: Ferritin 9 ng/mL (10-122); Insulin 8 uU/mL (2-29); TSH reflex Free T4 3.01 uIU/mL (0.32-4.0); Thyroid Stimulating Hormone 3.01 uIU/mL (0.32-4.0); Vitamin D 25-OH Total 22.8 ng/mL (>30)
[2023-06-12 08:36] LABS: Free T4 (Free Thyroxine) 0.89 ng/dL (0.71-1.85)
[2023-06-12 08:46] LABS: Folate 10.1 ng/mL (> or = 4.0); Vitamin B12 333 pg/mL (200-900)
[2023-06-12 16:48] LABS: Anion Gap 9 (12-20); Blood Urea Nitrogen 20 mg/dL (9-16); Calcium 8.8 mg/dL (8.4-10.2); Carbon Dioxide 20 mmol/L (22-29); Chloride 114 mmol/L (96-108); Estimated Glomerular Filt Rate 41; Potassium 4.4 mmol/L (3.3-5.1); Sodium 139 mmol/L (135-145)
[2023-06-12 17:43] LABS: Appearance Urine Hazy; Color Urine Yellow; Glucose Urine UA Negative (Negative); Leukocyte Esterase Urine Moderate (2+) (Negative); Nitrite Urine Negative (Negative); UMIC TRIGGER UA YES; Urine Blood Small (1+) (Negative); Urine Ketones Negative (Negative); Urine Protein Trace mg/dL (Neg-Trace)
[2023-06-12 17:57] LABS: Bacteria Urine 2+ (None Seen); Hyaline Casts Urine 0-2 /LPF (0-2); RBC Urine 0-2 /HPF (0-2); WBC Urine >50 /HPF (0-5)
[2023-06-12 18:05] LABS: Creatinine Urine 99.96 mg/dL; Protein/Creatinine Ratio, Ur 0.32 (<0.2); Total Protein Urine Random 32 mg/dL (<12)
[2023-06-14 16:39] LABS: Zinc 54 mcg/dL (60-130)
[2023-06-16 04:02] LABS: Vitamin A 65 mcg/dL (38-98)
[2023-06-17 08:38] LABS: Vitamin B1 13 nmol/L (8-30)
== END 2023-06-12 06:10 | disposition home or self-care (01) ==
LOC: HO.LAB 06:09
PROVIDERS: Absent Provider Internal Medicine; PCP Internal Medicine; Referring Provider Internal Medicine Nephrology; Visit Provider Physician Assistant Surgical
DX: E03.9 Hypothyroidism, unspecified (principal); R80.1 Persistent proteinuria, unspecified; N18.31 Chronic kidney disease, stage 3a; Z90.3 Acquired absence of stomach [part of]
CPT/HCPCS: 36415; 80051; 80053; 80061; 81001; 82043; 82306; 82310; 82565; 82570; 82607; 82728; 82746; 83036; 83525; 83540; 84156; 84425; 84439; 84443; 84520; 84590; 84630; 85025; 86140

== ENCOUNTER 2023-06-16 13:38 | Outpatient (AMB) | payer OTHER, SELFPAY ==
[2023-06-16 14:27] VITALS: BP 120/60; PULSE 83; TEMP 36.6; O2SAT 99; BMI 45.1
--- NOTE | 2023-06-16 14:27 | AM.OFFWIN_ITS ---
Intake Vital Signs 06/16/23 14:27 Height 5 ft 4 in Weight 119.295 kg BMI 45.1 BP 120/60 Blood Pressure Location Rt brachial Position Sitting Pulse 83 Pulse Source Pulse Oximeter Temp 97.8 F Temp Source Temporal Artery Scan Pulse Oximetry (%) 99 Intake Visit Reasons: EP, rash by left side of nose/cheek Intake Note: pt is here today for rash by lft side of nose started 3 days ago Patient Tobacco Use Status: Never used Tobacco Allergies metformin [METFORMIN] Allergy (Intermediate, Verified 06/16/23 14:28) INFLAMMED GUMS, red gums, redness of gums doxycycline Adverse Reaction (Intermediate, Verified 06/16/23 14:28) Itching Do you need a note to return to daycare/school/sports/work: No HPI HPI Comments History of Present Illness Details This is a 37-year-old female presents with painful bumps to the left side of her nose and in to cheek, patient reports these are like the cold sore she gets on her lips except a little bit higher up, she gets these frequently, they typically respond to Abreva however it appears as though this time they do not seem to be getting better. She tells me that she has been applying Abreva frequently without improvement. Denies visual changes, shortness of breath, nausea, vomiting, fevers, chills, headache, abdominal pain. Physical exam with painful vesicles overlying an erythematous base to the left side of nares, and into the left side of the cheek. This is likely a herpetic viral rash, shingles. Unlikely necrotizing infection unlikely Marky Montgomery there is no ear involvement. Plan at this time will discharge patient on Valtrex and give her a prescription for Abreva. Educated patient on diagnosis and treatment plan, answered all question, patient verbalizes understanding. At this time patient will be discharged home, advised to return with new or worsening symptoms. Educated on worrisome signs and symptoms and when to return. At this time I feel comfortable discharge home. [facility] Medical History Vaginal discharge Physical exam Open wound of thumb Lupus Mild recurrent major depression Morbid obesity with BMI of 40.0-44.9, adult Vitamin D deficiency BMI 38.0-38.9,adult Intestinal malabsorption following gastrectomy Preeclampsia Obesity (BMI 30-39.9) Knee pain Hypertension Depression Proteinuria Autoimmune thyroiditis SLE (systemic lupus erythematosus related syndrome) Surgical History History of foot surgery History of open reduction and internal fixation (ORIF) procedure History of sleeve gastrectomy Status post biopsy of kidney Family History Father Asthma Mother No problems noted. Brother No problems noted. Brother No problems noted. Sister No problems noted. Social History Housing: Apartment Alcohol intake: never Patient Tobacco Use Status: Never used Tobacco e-Cigarette/Vaping Use: Never Used Second Hand Smoke Exposure: No service: No Current occupational status: unemployed Current occupational exposures/hazards: No Cognitive needs: No Hearing needs: No Vision needs: No Female Reproductive History Menstrual Age of Menarche: 11 Review of Systems Const Details: Constitutional : No Weight loss, No Fever, No Chills, No Fatigue, No Malaise ENT/Mouth : No sore throat, No Rhinorrhea Eyes: No Eye Pain, No Swelling, No Redness Cardiovascular : No Chest Pain, No SOB, No Dyspnea on Exertion, No Orthopnea, No Edema, No Palpitations Respiratory : No Cough, No Sputum, No Wheezing Gastrointestinal : No Nausea, No Vomiting, No Diarrhea, No Constipation, No abdominal Pain, No Hematochezia, No Melena Genitourinary : No Dysuria, No Urinary Frequency, No Hematuria, Musculoskeletal : No joint pain, No Myalgias, No Joint Swelling Skin : No Skin Lesions, + rash Neuro : No Weakness, No Numbness, No Dizziness, No Headache Psych : No Anxiety/Panic, No Depression All other systems reviewed and are negative All systems reviewed & are unremarkable except as noted in HPI and below Physical Exam Vital Signs: Last Vital Signs Temp 97.8 F 06/16/23 14:27 Pulse 83 06/16/23 14:27 BP 120/60 06/16/23 14:27 Pulse Ox 99 06/16/23 14:27 BMI result Body Mass Index 45.1 vss Appearance: Alert.? Oriented X3.? No acute distress.? Head: Normocephalic, atraumatic, no step-offs or deformities Eyes: Pupils equal, round and reactive to light.? Neck: Normal inspection.? Neck supple.? CVS: Normal heart rate and rhythm.? Pulses normal.? Respiratory: No respiratory distress.? Breath sounds normal.? Abdomen: Soft and nontender.? Skin: Skin warm and dry.? Normal skin color.? Normal skin turgor.?+ painful vesicles overlying an erythematous base to the left side of nares, and into the left side of the cheek. Extremities: No lower extremity edema.? No calf ttp. 5/5 strength to bilateral upper and lower extremities Neuro: Oriented X 3.? No motor deficit.? No sensory deficit. CN 2-12 intact Assessment & Plan Assessment & Plan (1) Vesicular rash: Code(s): R23.8 - Other skin changes Plan Take your medications as prescribed. If you were prescribed antibiotics today, it is important that you take your medication to their entirety, do not skip any doses, do not finish them early. Follow-up with your primary care provider this week. Return to the emergency department with new or worsening symptoms. Such as fevers, chills, chest pain, shortness of breath, nausea, vomiting, dizziness, headache, vision changes, lethargy In case of emergency call 911 Medications: New docosanol 10% (Abreva) 1 appl topical TID 2 grams 0RF valacyclovir (Valtrex) 1,000 mg PO TID 7 days 21 tabs 0RF Coding Level of Care Code Est Pt Level 3 (66969) Diagnoses Vesicular rash R23.8
== END 2023-06-16 15:38 | disposition home or self-care (01) ==
PROVIDERS: PCP Internal Medicine; Visit Provider Physician Assistant
DX: R23.8 Other skin changes (principal)
CPT/HCPCS: 99213

== ENCOUNTER 2023-06-28 07:38 | Outpatient (AMB) | payer OTHER, SELFPAY ==
--- NOTE | 2023-06-28 07:41 | MHC.PC.OV ---
Vital Signs 06/28/23 07:42 Height 5 ft 4 in Weight 263 lb BMI 45.1 BP 122/80 Blood Pressure Location Lt brachial Position Sitting Intake Visit Reasons: physical exam Intake Note: Patient here for a physical exam Communications Technician Required: No Accompanied by: Child Allergies metformin [METFORMIN] Allergy (Intermediate, Verified 06/28/23 07:54) INFLAMMED GUMS, red gums, redness of gums doxycycline Adverse Reaction (Intermediate, Verified 06/28/23 07:54) Itching Medication List - Last Reconciled 06/28/23 by Delores Silva MD acetaminophen (Tylenol) 650 mg (2 x 325 mg) PO Q4H PRN albuterol sulfate 90 mcg/actuation (ProAir HFA) 2 puffs PO Q4-6H PRN bupropion HCl 300 mg PO DAILY cane HEAVY DUTY cetirizine 10 mg PO DAILY PRN cholecalciferol (vitamin D3) 125 mcg PO DAILY clotrimazole 1% appl topical DAILY docosanol 10% (Abreva) 1 appl topical TID duloxetine 30 mg PO BID escitalopram oxalate mg PO fluticasone propionate 50 mcg/actuation (Flonase Allergy Relief) 1 spray intranasal DAILY 30 days furosemide 20 mg PO DAILY PRN [hinge brace HEAVY DUTY] hydroxychloroquine (Plaquenil) 200 mg PO BID iron,carbonyl-vitamin C 65 mg iron- 125 mg (Vitron-C) 1 tab PO BEDTIME leflunomide 10 mg PO DAILY levothyroxine 25 mcg PO DAILY 90 days loratadine 10 mg PO DAILY PRN 90 days Shower Chair HEAVY DUTY trazodone 25 - 50 mg PO BEDTIME triamcinolone acetonide (Nasal Allergy) 2 sprays intranasal DAILY valacyclovir (Valtrex) 1,000 mg PO TID 7 days valsartan 160 mg PO DAILY zinc gluconate 30 mg PO DAILY Tobacco use date assessed: 09/29/22 Dental Screening Dental Screen Date: 06/28/23 Did you have a dental visit in the last 12 months?: Yes Did you have a dental problem in the last 6 months where you did not have access to dental care?: No Was dental information given to patient?: Patient has dentist HPI HPI Comments History of Present Illness Details This is a 37-year-old female with mild recurrent major depression and morbid obesity that comes for her physical exam. Depression stable with bupropion. She is morbidly obese with a BMI of 45.1 and is enroll in weight management. Last Pap smear was 2021. Has microscopic hematuria and will be sent to urology. No chest pain or shortness of breath. Labs were discussed. [facility] Medical History (Updated 06/28/23 @ 08:03 by Delores Silva MD) Vaginal discharge Physical exam Open wound of thumb Lupus Mild recurrent major depression Morbid obesity with BMI of 40.0-44.9, adult Vitamin D deficiency BMI 38.0-38.9,adult Intestinal malabsorption following gastrectomy Preeclampsia Obesity (BMI 30-39.9) Knee pain Hypertension Depression Proteinuria Autoimmune thyroiditis SLE (systemic lupus erythematosus related syndrome) Surgical History History of foot surgery History of open reduction and internal fixation (ORIF) procedure History of sleeve gastrectomy Status post biopsy of kidney Family History Father Asthma Mother No problems noted. Brother No problems noted. Brother No problems noted. Sister No problems noted. Social History Housing: Apartment Alcohol intake: never Patient Tobacco Use Status: Never used Tobacco e-Cigarette/Vaping Use: Never Used Second Hand Smoke Exposure: No service: No Current occupational status: unemployed Current occupational exposures/hazards: No Cognitive needs: No Hearing needs: No Vision needs: No Female Reproductive History Menstrual Age of Menarche: 11 Questionnaire Thrive Questionnaire Date Thrive assessed: 09/29/22 BETHANIE-7 AMB Questionnaire BETHANIE-7 Date BETHANIE - 7 assessed: 09/29/22 Source: Developed by Drs. Edmundo Miller, Ghislaine Robbins, Manav Walker and colleagues, with an educational daniel from [employer]. Review of Systems Const All systems reviewed & are unremarkable except as noted in HPI and below Eyes Reports no additional complaints, Denies change in vision and Denies other visual disturbances Card Denies chest pain at rest, Denies chest pain with activity, Denies edema, Denies irregular heart rhythm, Denies claudication, Denies dyspnea, Denies dyspnea on exertion, Denies orthopnea, Denies paroxysmal nocturnal dyspnea and Denies slow heart rate Resp Denies cough, Denies dyspnea and Denies dyspnea on exertion GI Denies abdominal pain, Denies change in bowel habits, Denies excessive flatus, Denies nausea and Denies vomiting Denies urinary incontinence, Denies urinary hesitancy and Denies urinary urgency Musc Denies abnormal gait, Denies atrophy, Denies deformity and Denies limited range of motion Skin/Breast Denies bleeding lesions, Denies changing lesions and Denies rash Neuro Denies abnormal gait, Denies behavioral changes, Denies confusion and Denies lack of coordination Psych Denies behavioral changes and Denies confusion Physical exam (Primary Care) Vital Signs: Last Vital Signs BP 122/80 06/28/23 07:42 BMI result Body Mass Index 45.1 Tobacco/Smoking Status: Tobacco use Status Tobacco use date assessed 09/29/22 06/28/23 07:46 Patient Tobacco Use Status Never used Tobacco 06/28/23 07:46 e-Cigarette/Vaping Use Never Used 06/28/23 07:46 Thrive Assessment: Date of Thrive Assessment Date Thrive assessed 09/29/22 06/28/23 07:46 Const General: No confusion Orientation/consciousness: patient oriented x3 and No confusion HENMT Head: Yes normal to inspection, Yes normocephalic and Yes atraumatic Ears: external ears normal Eyes General: appearance normal, both eyes and all related structures Eyelids: Yes eyelids normal Conjunctivae: conjunctivae normal Neck Neck: Yes normal visual inspection and Yes supple Resp Effort & Inspection: normal respiratory effort Auscultation: clear to auscultation bilaterally Cardio Jugular venous distension: no JVD Rate: regular rate Rhythm: regular rhythm Heart sounds: S1 normal heart sound present and S2 normal heart sound present GI Inspection: Yes normal to inspection Palpation (GI): Soft to palpation and nontender Auscultation: normal bowel sounds Skin General skin exam: no rashes or lesions noted Neuro General: patient oriented x3, no focal motor deficits and No confusion Extrem General: Yes full ROM Psych Appearance: grossly normal Office Procedures Flu Questionnaire Does the patient have a severe egg allergy?: No Immunizations flu vacc [id number] 6mos up(PF) 60 mcg(15 mcgx4)/0.5 mL IM syringe Performing Provider: Delores Silva MD Performing Location: [facility] Documented (not given) by: HARESH Hollis on 06/28/23 08:08 Reason Not Given: Not Given Assessment and Plan Assessment & Plan (1) Physical exam: Code(s): Z00.00 - Encounter for general adult medical examination without abnormal findings Plan: Repeat in a year. (2) Morbid obesity with BMI of 40.0-44.9, adult: Code(s): E66.01 - Morbid (severe) obesity due to excess calories; Z68.41 - Body mass index [BMI] 40.0-44.9, adult Plan: Start diet and exercise. BMI goal is less than 30. (3) Mild recurrent major depression: Code(s): F33.0 - Major depressive disorder, recurrent, mild Plan: Continue bupropion. Orders: Orders IRON PROFILE 6 Months D64.9 - Anemia, unspecified Thyroid Stimulating Hormone 6 Months E03.9 - Hypothyroidism, unspecified Influenza [id number] Immunization Today Z23 - Encounter for immunization Complete Blood Count Auto Diff 6 Months D64.9 - Anemia, unspecified Vitamin D 25-OH Total 6 Months E55.9 - Vitamin D deficiency, unspecified Referrals Urology Referral R31.9 - Hematuria, unspecified Coding Level of Care Code Est Pt Prev Care 18-39y(34058) Diagnoses Physical exam Z00.00 Morbid obesity with BMI of 40.0-44.9, adult E66.01; Z68.41 Mild recurrent major depression F33.0 Time Spent (min) 32
[2023-06-28 07:42] VITALS: BP 122/80; BMI 45.1
== END 2023-06-28 08:03 | disposition home or self-care (01) ==
PROVIDERS: PCP Internal Medicine; Visit Provider Internal Medicine
DX: Z00.00 Encounter for general adult medical examination without abnormal findings (principal); E66.01 Morbid (severe) obesity due to excess calories; Z68.41 Body mass index [BMI] 40.0-44.9, adult; F33.0 Major depressive disorder, recurrent, mild
CPT/HCPCS: 99395

== ENCOUNTER 2023-08-07 10:00 | Outpatient (AMB) | payer OTHER, SELFPAY ==
--- NOTE | 2023-08-07 10:04 | A.OFFVIS_ITS ---
Intake Intake Visit Reasons: Hematuria, unspecified Intake Note: New Patient presents to office today for Hematuria Urology Medications: none Blood Thinner: none Smoker: no Windscreen Fitter Required: No Accompanied by: Self / Same As Patient Allergies metformin [METFORMIN] Allergy (Intermediate, Verified 08/07/23 10:33) INFLAMMED GUMS, red gums, redness of gums doxycycline Adverse Reaction (Intermediate, Verified 08/07/23 10:33) Itching Medication List - Last Reconciled 08/07/23 by BOSSMAN Dewey acetaminophen (Tylenol) 650 mg (2 x 325 mg) PO Q4H PRN albuterol sulfate 90 mcg/actuation (ProAir HFA) 2 puffs PO Q4-6H PRN bupropion HCl 300 mg PO DAILY cetirizine 10 mg PO DAILY PRN cholecalciferol (vitamin D3) 125 mcg PO DAILY clotrimazole 1% appl topical DAILY docosanol 10% (Abreva) 1 appl topical TID escitalopram oxalate mg PO fluticasone propionate 50 mcg/actuation (Flonase Allergy Relief) 1 spray intranasal DAILY 30 days furosemide 20 mg PO DAILY PRN [hinge brace HEAVY DUTY] hydroxychloroquine (Plaquenil) 200 mg PO BID iron,carbonyl-vitamin C 65 mg iron- 125 mg (Vitron-C) 1 tab PO BEDTIME leflunomide 10 mg PO DAILY levothyroxine 25 mcg PO DAILY 90 days loratadine 10 mg PO DAILY PRN 90 days Shower Chair HEAVY DUTY trazodone 25 - 50 mg PO BEDTIME triamcinolone acetonide (Nasal Allergy) 2 sprays intranasal DAILY valsartan 160 mg PO DAILY zinc gluconate 30 mg PO DAILY HPI HPI Comments History of Present Illness Details Israel is a very pleasant 37 year old female patient of Dr. Herzog. She has a past medical history of lupus, depression, morbid obesity, vitamin-D deficiency, hypertension, and proteinuria. She presents to the office today as a new patient for microscopic hematuria. In discussion with the patient today she reports having followed up with her PCP for her annual visit at which time she was noted to have microscopic hematuria. She reports a longstanding history of proteinuria and has undergone multiple biopsies in the past and follows up with Nephrology. She reports proteinuria is related to her lupus. When asked she currently denies any bothersome urinary issues or concerns. She denies urinary urgency, urinary frequency, incontinence, nocturia, hematuria, dysuria, foul smelling urine, changes to urinary stream, flank pain, fever, and or chills. She is happy with her current voiding parameters. Discussed at length potential causes for microscopic hematuria. She denies smoking history. 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 Discussed surveillance monitoring versus further microscopic hematuria workup with in office cystoscopy, CT urogram, and urine cytology. Discussed risks and benefits of these interventions. In office urinalysis today with 2+ microscopic hematuria, 2+ leukocytes, and 2+ proteinuria. These results were reviewed with the patient today. [facility] Medical History Vaginal discharge Physical exam Open wound of thumb Lupus Mild recurrent major depression Morbid obesity with BMI of 40.0-44.9, adult Vitamin D deficiency BMI 38.0-38.9,adult Intestinal malabsorption following gastrectomy Preeclampsia Obesity (BMI 30-39.9) Knee pain Hypertension Depression Proteinuria Autoimmune thyroiditis SLE (systemic lupus erythematosus related syndrome) Surgical History History of foot surgery History of open reduction and internal fixation (ORIF) procedure History of sleeve gastrectomy Status post biopsy of kidney Family History Father Asthma Mother No problems noted. Brother No problems noted. Brother No problems noted. Sister No problems noted. Social History Housing: Apartment Alcohol intake: never Patient Tobacco Use Status: Never used Tobacco e-Cigarette/Vaping Use: Never Used Second Hand Smoke Exposure: No service: No Current occupational status: unemployed Current occupational exposures/hazards: No Cognitive needs: No Hearing needs: No Vision needs: No Female Reproductive History Menstrual Age of Menarche: 11 Review of Systems Eyes Reports no additional complaints ENT Reports no additional complaints Card Reports as per HPI Resp Reports no additional complaints GI Reports no additional complaints Reports as per HPI Musc Reports no additional complaints Neuro Reports no additional complaints Psych Reports as per HPI Aller/Immun Reports as per HPI Physical Exam Const General: cooperative, healthy appearing, comfortable, no acute distress, well developed, alert and awake Nutritional Appearance: overweight Orientation/consciousness: patient oriented x3 Limitations: no limitations HEENT Head: Yes normal to inspection, Yes normocephalic and Yes atraumatic Ears: hearing grossly normal bilaterally Eyes General: appearance normal, both eyes and all related structures Neck Neck: Yes normal visual inspection and Yes trachea midline Chest Chest palpation & inspection: normal inspection of the chest Resp Effort & Inspection: normal respiratory effort and able to speak in complete sentences Cardio Rate: regular rate GI Inspection: Yes normal to inspection General: Yes no CVA tenderness Back/Spine/Pelvis Back: no CVA tenderness Skin General skin exam: no rashes or lesions noted Neuro General: patient oriented x3 Extrem General: Yes normal to inspection Psych Appearance: grossly normal and well kempt Mental Status: mental status grossly normal Speech and movement: Normal speech and movement present and Clear speech present Affect: normal affect Attitude: cooperative Thought process: Normal thought process present Thought content: Normal thought content present Insight: Fair insight present (Psych) Judgement: Fair judgement present (Psych) Results AMB Urinalysis, Automated UA Leukoctes 125 Heriberto/uL Last Edit by [email or web address] on 08/07/23 10:22 UA Nitrite Negative Last Edit by [email or web address] on 08/07/23 10:22 UA Urobilinogen 0.2 mg/dL Last Edit by [email or web address] on 08/07/23 10:22 UA Protein 100 mg/dL Last Edit by [email or web address] on 08/07/23 10:22 UA pH 6.0 Last Edit by [email or web address] on 08/07/23 10:22 UA Blood 80 Brian/uL Last Edit by [email or web address] on 08/07/23 10:22 UA Specific [place] 1.015 Last Edit by [email or web address] on 08/07/23 10:22 UA Ketone Negative Last Edit by [email or web address] on 08/07/23 10:22 UA Bilirubin 0 mg/dL Last Edit by [email or web address] on 08/07/23 10:22 UA Glucose 0 mg/dL Last Edit by [email or web address] on 08/07/23 10:22 Results Reviewed Results Reviewed: Laboratory Last Values Urine pH (Auto) 6.0 08/07/23 10:10 Specific [place] (Auto) 1.015 08/07/23 10:10 Urine Protein (Auto) 100 mg/dL 08/07/23 10:10 Glucose (UA)(Auto) 0 mg/dL 08/07/23 10:10 Urine Ketones (Auto) Negative 08/07/23 10:10 Urine Blood (Auto) 80 Brian/uL 08/07/23 10:10 Urine Nitrite (Auto) Negative 08/07/23 10:10 Urine Bilirubin (Auto) 0 mg/dL 08/07/23 10:10 Urine Urobilinogen (Auto) 0.2 mg/dL 08/07/23 10:10 Leukocyte Esterase (Auto) 125 Heriberto/uL 08/07/23 10:10 Assessment & Plan Assessment & Plan (1) Microscopic hematuria: Code(s): R31.29 - Other microscopic hematuria Plan In office urinalysis results reviewed with the patient today; as noted above; will send for urine culture and cytology. Patient currently denies any bothersome urinary issues or concerns. She reports to be happy with current voiding parameters. Continue to follow-up with nephrology as planned Discussed at length potential causes of microscopic hematuria Discussed further workup with CT urogram, cytology, in office cystoscopy versus surveillance monitoring; these interventions/treatment options were discussed at length Will obtain CT urogram for further assessment evaluation. BUN and creatinine ordered for imaging. Follow-up in office cystoscopy with imaging and labs to be completed prior; or sooner with any issues, concerns, and or questions. Orders: Orders AMB Urinalysis Automated Today Z13.9 - Encounter for screening, unspecified Urine Cytology Today R31.9 - Hematuria, unspecified Urine Culture Today R31.9 - Hematuria, unspecified Blood Urea Nitrogen Today R31.29 - Other microscopic hematuria Creatinine Today R31.29 - Other microscopic hematuria CT urogram Today R31.29 - Other microscopic hematuria Patient Instructions: The patient had an opportunity to ask questions regarding the treatment plan. All questions were answered. Physical exam, labs, and imaging were discussed and reviewed in detail. As well as risks, benefits, and discussion of treatment choices. No major barriers to understanding were identified. The patient expressed understanding and agreement with the above treatment plan. The patient was made aware they should contact our office by phone for worsening of their current condition, the appearance of new symptoms, or with any questions or concerns. Compliance is encouraged with any medications and follow up testing that is ordered. It is a privilege to be allowed the opportunity to participate in? your urological care.? Again, if you have any questions or concerns If you have any questions or concerns please do not hesitate to contact me. The office is [phone]. This note is constructed using voice recognition software. While every effort has been made to ensure accuracy meat carver errors may have been included. Yours sincerely, BOSSMAN Dewey Coding Level of Care Code New Pt Level 3 (82280) Diagnoses Microscopic hematuria R31.29
== END 2023-08-07 10:39 | disposition home or self-care (01) ==
PROVIDERS: PCP Internal Medicine; Visit Provider Nurse Practitioner Family
DX: R31.29 Other microscopic hematuria (principal); Z13.9 Encounter for screening, unspecified
CPT/HCPCS: 99203

== ENCOUNTER 2023-08-07 10:00 | Outpatient (REF) | payer OTHER, SELFPAY ==
[2023-08-07 17:28] LABS: Urine Cytology See Pathology rpt
== END 2023-08-07 10:01 | disposition home or self-care (01) ==
LOC: HO.LNP 10:00
PROVIDERS: PCP Internal Medicine; Visit Provider Nurse Practitioner Family
DX: R31.9 Hematuria, unspecified (principal)
CPT/HCPCS: 81003; 87086; 99202

== ENCOUNTER 2023-08-07 10:52 | Outpatient (REF) | payer OTHER, SELFPAY ==
[2023-08-07 13:14] LABS: Urine Cytology See Pathology rpt
[2023-08-07 13:21] LABS: Appearance Urine Clear; Color Urine Yellow; Glucose Urine UA Negative (Negative); Leukocyte Esterase Urine Trace (Negative); Nitrite Urine Negative (Negative); PH 5.5 (5.0-9.0); UMIC TRIGGER UACC YES; Urine Blood Small (1+) (Negative); Urine Ketones Negative (Negative); Urine Protein 100 (2+) mg/dL (Neg-Trace)
[2023-08-07 13:47] LABS: Bacteria Urine None Seen (None Seen); Hyaline Casts Urine 0-2 /LPF (0-2); RBC Urine 0-2 /HPF (0-2); Squamous Epithelial Cell Urine 0-2 /HPF (0-2); WBC Urine 0-5 /HPF (0-5)
[2023-08-07 13:59] LABS: Anion Gap 10 (12-20); Blood Urea Nitrogen 18 mg/dL (9-16); Calcium 8.4 mg/dL (8.4-10.2); Carbon Dioxide 23 mmol/L (22-29); Chloride 112 mmol/L (96-108); Estimated Glomerular Filt Rate 49; Potassium 4.3 mmol/L (3.3-5.1); Sodium 141 mmol/L (135-145)
[2023-08-07 14:06] LABS: Creatinine Urine 62.02 mg/dL; Protein/Creatinine Ratio, Ur 1.93 (<0.2); Total Protein Urine Random 120 mg/dL (<12)
[2023-08-07 14:17] LABS: Microalbum/Creatinine Ratio Ur 1354.4 ug/mg cr (<30)
[2023-08-07 15:33] LABS: Blood Urea Nitrogen 18 mg/dL (9-16); Estimated Glomerular Filt Rate 47
== END 2023-08-07 10:53 | disposition home or self-care (01) ==
LOC: HO.10HDL 10:52
PROVIDERS: Nurse Practitioner Family; Visit Provider Internal Medicine Nephrology
DX: R31.9 Hematuria, unspecified (principal); R31.29 Other microscopic hematuria; N18.31 Chronic kidney disease, stage 3a; R80.1 Persistent proteinuria, unspecified
CPT/HCPCS: 36415; 80051; 81001; 82043; 82310; 82565; 82570; 84156; 84520; 87086; 88112

== ENCOUNTER 2023-08-08 09:58 | Outpatient (AMB) | payer OTHER, SELFPAY ==
--- NOTE | 2023-08-08 09:40 | A.OFFVIS_ITS ---
Intake VS Expanded 08/08/23 09:45 Height 5 ft 4 in Weight 262 lb BMI 45.0 Intake Visit Reasons: (TELEPHONE) PO LSG 11/24/2017 Allergies metformin [METFORMIN] Allergy (Intermediate, Verified 08/07/23 10:33) INFLAMMED GUMS, red gums, redness of gums doxycycline Adverse Reaction (Intermediate, Verified 08/07/23 10:33) Itching Medication List - Last Reconciled 08/08/23 by TRISTA Mckeon acetaminophen (Tylenol) 650 mg (2 x 325 mg) PO Q4H PRN albuterol sulfate 90 mcg/actuation (ProAir HFA) 2 puffs PO Q4-6H PRN bupropion HCl 300 mg PO DAILY cetirizine 10 mg PO DAILY PRN cholecalciferol (vitamin D3) 125 mcg PO DAILY clotrimazole 1% appl topical DAILY docosanol 10% (Abreva) 1 appl topical TID escitalopram oxalate mg PO fluticasone propionate 50 mcg/actuation (Flonase Allergy Relief) 1 spray intranasal DAILY 30 days furosemide 20 mg PO DAILY PRN [hinge brace HEAVY DUTY] hydroxychloroquine (Plaquenil) 200 mg PO BID iron,carbonyl-vitamin C 65 mg iron- 125 mg (Vitron-C) 1 tab PO BEDTIME leflunomide 10 mg PO DAILY levothyroxine 25 mcg PO DAILY 90 days loratadine 10 mg PO DAILY PRN 90 days Shower Chair HEAVY DUTY trazodone 25 - 50 mg PO BEDTIME triamcinolone acetonide (Nasal Allergy) 2 sprays intranasal DAILY valsartan 160 mg PO DAILY zinc gluconate 30 mg PO DAILY HPI HPI Comments History of Present Illness Details This?is a?37?yo female who is s/p LSG 11/24/2017. Presents for 4 year 8 month post op visit. Weight at last visit on 05/09/2023 was 259 pounds with a BMI of 44.5, weight today is 262 pounds, representing a 3 pound weight gain with a BMI today of 45.? No complaints of nausea, emesis, abdominal pain or reflux, or constipation. Present meal plan includes: 2 Premier Protein adame, 1 snack (CC/GY /bar) and one meal of 6-8 forks protein, 6-8 forks salad/veg Pt reports difficulty following the meal plan/ eating meat and beans, All meals last 20 - 30 minutes and does not drink and eat at the same time. Exercise routine includes: walking, gets nighttime pain PFSH Medical History Vaginal discharge Physical exam Open wound of thumb Lupus Mild recurrent major depression Morbid obesity with BMI of 40.0-44.9, adult Vitamin D deficiency BMI 38.0-38.9,adult Intestinal malabsorption following gastrectomy Preeclampsia Obesity (BMI 30-39.9) Knee pain Hypertension Depression Proteinuria Autoimmune thyroiditis SLE (systemic lupus erythematosus related syndrome) Surgical History History of foot surgery History of open reduction and internal fixation (ORIF) procedure History of sleeve gastrectomy Status post biopsy of kidney Family History Father Asthma Mother No problems noted. Brother No problems noted. Brother No problems noted. Sister No problems noted. Social History Housing: Apartment Alcohol intake: never Patient Tobacco Use Status: Never used Tobacco e-Cigarette/Vaping Use: Never Used Second Hand Smoke Exposure: No service: No Current occupational status: unemployed Current occupational exposures/hazards: No Cognitive needs: No Hearing needs: No Vision needs: No Female Reproductive History Menstrual Age of Menarche: 11 Assessment & Plan Assessment & Plan (1) Morbid obesity with BMI of 45.0-49.9, adult: Code(s): E66.01 - Morbid (severe) obesity due to excess calories; Z68.42 - Body mass index [BMI] 45.0-49.9, adult (2) Status post sleeve gastrectomy: Code(s): Z90.3 - Acquired absence of stomach [part of] Plan Pt struggles to stay consistent with protein shakes and bars. She starts them but gets tired of them and stops following the plan. She has not yet tried protein adame but is willing. Suggested 2 Premier protein adame, 2 small snacks like GY or CC, and one meal of 6 forks meat, 6 forks veg. Discussed staying conistent with exercise/walking to help facilitate weight loss. Labs rev iewed, pt previously started on iron and vit D. Encouraged pt to text me between visits with any questions or if she has difficulty following plan. RTC in mid November for 5 year appt. Patient is morbidly obese and is not considered stable at this time. I spent a total of 30 minutes reviewing/updating records, examining the patient and counseling the patient on weight management as detailed above. Telehealth Telehealth Location of provider rendering services: practice address Location of patient: address on file Patient Identification confirmed using: Name, : Yes Telehealth method: voice only Patient verbally consented to treatment: Yes Patient verbally consented to billing insurance company: Yes Patient informed of any privacy concerns related to visit: Yes Minutes spent on Phone/Video with Pt.: 12 Coding Level of Care Code Tele Est Pt Level 4 (82047) Diagnoses Morbid obesity with BMI of 45.0-49.9, adult E66.01; Z68.42 Status post sleeve gastrectomy Z90.3
[2023-08-08 09:45] VITALS: BMI 45.0
== END 2023-08-08 10:02 | disposition home or self-care (01) ==
LOC: HO.HBS 09:58
PROVIDERS: PCP Internal Medicine; Visit Provider Physician Assistant Surgical
DX: E66.01 Morbid (severe) obesity due to excess calories (principal); Z68.42 Body mass index [BMI] 45.0-49.9, adult; Z90.3 Acquired absence of stomach [part of]
CPT/HCPCS: 99214

== ENCOUNTER → 2023-08-08 09:58 | Outpatient (BNVA) | payer OTHER, SELFPAY | PROVIDERS: PCP Internal Medicine; Visit Provider Physician Assistant Surgical ==

== ENCOUNTER 2023-09-13 08:19 | Outpatient (REF) | payer OTHER, SELFPAY ==
--- NOTE | ~2023-09-13 | CT_ITS ---
EXAMINATION: CT ABDOMEN AND PELVIS WITHOUT AND WITH CONTRAST CLINICAL INFORMATION: Microscopic hematuria. COMPARISON: Abdominal ultrasound dated 08/02/2016; CT abdomen and pelvis dated 07/31/2013. TECHNIQUE: Noncontrast CT of the abdomen and pelvis is performed followed by split bolus contrast-enhanced images using 85 mL Omnipaque 350 contrast.? Postcontrast imaging is performed during the combined nephrogram and excretion phase. Sagittal and coronal reformatted images were obtained on the technologist's workstation for both the precontrast and postcontrast phases. This CT examination was performed using dose optimization techniques as appropriate, variously including the following: *Automated exposure control *Adjustment of mA and/or kV according to patient size (this includes techniques or standardized protocols for targeted exams where dose is matched to indication/reason for exam; i.e. extremities or head) *Use of iterative reconstruction technique DLP: 1511 mGy-cm FINDINGS: LUNG BASES: The visualized lung bases are unremarkable. LIVER, GALLBLADDER, AND BILIARY TREE: The liver is normal in size, shape, and attenuation. No focal hepatic lesion or biliary ductal dilatation is present. The gallbladder contains a small dependent calculus, without wall thickening or obvious pericholecystic inflammatory change. PANCREAS: Unremarkable. SPLEEN: Unremarkable. ADRENAL GLANDS: Unremarkable. KIDNEYS AND URETERS: The kidneys are normal in size, shape, and attenuation. No hydronephrosis, hydroureter, or calculi seen. No perinephric stranding. BLADDER: Unremarkable, with imaging somewhat limited by metallic streak artifact from right hip orthopedic hardware. No mass, nodule, calculus or wall thickening is seen. GASTROINTESTINAL TRACT: There are gastric surgical surekha. The small and large bowel are unremarkable. The appendix is unremarkable. ABDOMINAL WALL: Unremarkable. No significant hernia defect is noted. LYMPH NODES: Normal. VASCULAR: Unremarkable. PELVIC VISCERA: The uterus and adnexa are unremarkable. OSSEUS STRUCTURES: At T11-T12, there is a mild degenerative disc disease, with vacuum disc phenomenon and endplate arthropathy. No acute or aggressive osseous finding is seen. CT/CT urogram IMPRESSION: 1. No urinary mass, calculus or obstruction is seen. 2. There is mild cholelithiasis. 3. There is no abdominopelvic free fluid or lymphadenopathy. 4. There is mild degenerative disc disease at T11-T12.
[2023-09-13] MEDS: iohexoL 350 MG/ML 100 ML INFUS..BTL 85 ML IV (09:27)
== END 2023-09-13 08:20 | disposition home or self-care (01) ==
LOC: HO.CT 08:19
PROVIDERS: PCP Internal Medicine; Visit Provider Nurse Practitioner Family
DX: R31.29 Other microscopic hematuria (principal)
CPT/HCPCS: 74178; Q9967

== ENCOUNTER 2023-09-14 08:07 | Outpatient (AMB) | payer OTHER, SELFPAY ==
[2023-09-14 08:34] VITALS: BP 120/80; PULSE 69; TEMP 36.3; O2SAT 99; BMI 45.7
--- NOTE | 2023-09-14 08:34 | MHC.OFFWIV ---
Intake Vital Signs 09/14/23 08:34 Height 5 ft 4 in Weight 266 lb BMI 45.7 BP 120/80 Blood Pressure Location Lt brachial Position Sitting Pulse 69 Pulse Source Pulse Oximeter Temp 97.3 F Temp Source Temporal Artery Scan Pulse Oximetry (%) 99 Oxygen Delivery Method Room Air Intake Visit Reasons: EST/throat and ear pain ([phone]) Intake Note: pt is here today for sore throat and ear pain started monday Patient Tobacco Use Status: Never used Tobacco Allergies metformin [METFORMIN] Allergy (Intermediate, Verified 09/14/23 08:43) INFLAMMED GUMS, red gums, redness of gums doxycycline Adverse Reaction (Intermediate, Verified 09/14/23 08:43) Itching Do you need a note to return to daycare/school/sports/work: No HPI EST/throat and ear pain ([phone]) HPI Details This is a 37 year old female patient who presents with a several day history of sore throat, bilateral ear pain, headache, facial pressure. Denies any fever. States that 3-year-old daughter is being treated currently for strep pharyngitis. [facility] Medical History Vaginal discharge Physical exam Open wound of thumb Lupus Mild recurrent major depression Morbid obesity with BMI of 40.0-44.9, adult Vitamin D deficiency BMI 38.0-38.9,adult Intestinal malabsorption following gastrectomy Preeclampsia Obesity (BMI 30-39.9) Knee pain Hypertension Depression Proteinuria Autoimmune thyroiditis SLE (systemic lupus erythematosus related syndrome) Surgical History History of foot surgery History of open reduction and internal fixation (ORIF) procedure History of sleeve gastrectomy Status post biopsy of kidney Family History Father Asthma Mother No problems noted. Brother No problems noted. Brother No problems noted. Sister No problems noted. Social History Housing: Apartment Alcohol intake: never Patient Tobacco Use Status: Never used Tobacco e-Cigarette/Vaping Use: Never Used Second Hand Smoke Exposure: No service: No Current occupational status: unemployed Current occupational exposures/hazards: No Cognitive needs: No Hearing needs: No Vision needs: No Female Reproductive History Menstrual Age of Menarche: 11 Review of Systems Const All systems reviewed & are unremarkable except as noted in HPI and below Physical Exam Vital Signs: Last Vital Signs Temp 97.3 F 09/14/23 08:34 Pulse 69 09/14/23 08:34 BP 120/80 09/14/23 08:34 Pulse Ox 99 09/14/23 08:34 Oxygen Delivery Method Room Air 09/14/23 08:34 BMI result Body Mass Index 45.7 Const General: cooperative and no acute distress HEENT Head: Yes normal to inspection Ears: hearing grossly normal bilaterally, external ears normal and TM's normal bilaterally General nose exam: Normal external nose present and Normal nasal mucous membranes and turbinates present Face and sinus: Yes normal facial exam and Yes sinus tenderness (maxillary) Mouth: Normal oral and palatal mucosa present Throat: Yes posterior oropharynx abnormal (tonsilar hypertrophy, erythema, exudate) Neck Neck: Yes no lymphadenopathy Resp Effort & Inspection: normal respiratory effort and able to speak in complete sentences Auscultation: clear to auscultation bilaterally Cardio Jugular venous distension: no JVD Palpation: normal PMI Rate: regular rate Rhythm: regular rhythm Skin General skin exam: no rashes or lesions noted Extrem General: Yes capillary refill normal and Yes no clubbing, cyanosis or edema Psych Appearance: grossly normal Mental Status: mental status grossly normal Speech and movement: Normal speech and movement present Results AMB Rapid Strep AMB Rapid Strep Negative Last Edit by Sherman Rahman on 09/14/23 09:01 Results Reviewed Results Reviewed: Laboratory Last Values Strep Scn Rapid Clinic Negative 09/14/23 09:00 Assessment & Plan Assessment & Plan (1) Strep pharyngitis: Code(s): J02.0 - Streptococcal pharyngitis Plan: Symptoms consistent with strep pharyngitis, and daughter is currently being treated for the same. Rapid strep in the office was negative, however will treat with Pen V 10 days. Patient states she also occasionally gets yeast infections following antibiotic use. Will send fluconazole for p.r.n. use should she develop a yeast infection following use. We reviewed indications, use, possible side effects of medications. May take tylenol/motrin as needed for pain/fever. May also utilize conservative measures with lozenges, tea with honey, salt water gargles. If she does not improve with treatment, or if symptoms worsen, she can return to the clinic for further evaluation. She verbalizes understanding and agrees to plan. Medications: New penicillin V potassium 500 mg PO BID 10 days 20 tabs 0RF J02.0 - Streptococcal pharyngitis fluconazole may repeat second dose 72 hrs after first dose if symptoms persist. Take following antibiotic use if yeast infection develops. 150 mg PO Q3D 2 tabs 0RF Coding Level of Care Code Est Pt Level 3 (08398) Diagnoses Strep pharyngitis J02.0
== END 2023-09-14 09:35 | disposition home or self-care (01) ==
PROVIDERS: PCP Internal Medicine; Visit Provider Nurse Practitioner Family
DX: J02.0 Streptococcal pharyngitis (principal); J02.9 Acute pharyngitis, unspecified
CPT/HCPCS: 87880; 99213

== ENCOUNTER 2023-09-18 10:14 | Outpatient (AMB) | payer OTHER, SELFPAY ==
--- NOTE | 2023-09-18 10:23 | A.OFFVIS_ITS ---
Intake Intake Visit Reasons: cysto/CT/labs Intake Note: Patient presents today for a Cystoscopy Meds: None Allergies to Antibiotic:Doxycycline Blood Thinner: None Urinalysis test clear for Cysto? Yes Disposable Uro-G Cystoscope Cannula: Lot: [id number] Exp: 11/20/2024 Briquette Molder Required: No Accompanied by: Self / Same As Patient Allergies metformin [METFORMIN] Allergy (Intermediate, Verified 09/18/23 10:49) INFLAMMED GUMS, red gums, redness of gums doxycycline Adverse Reaction (Intermediate, Verified 09/18/23 10:49) Itching HPI HPI Comments History of Present Illness Details 09/18/2023--Diane is here office cystosc opy. She is history of lupus. She was referred to Urology due to microscopic hematuria. She initially evaluated by nurse practitioner Socorro Hernandez on 08/07/2023. She was sent for urinary tract imaging. I have reviewed CT urogram performed on 09/13/2023 - urinary tract is within normal limits kidneys negative masses or calculi. Urine cytology sent on 08/07/2023--negative for malignant cells. The patient denies urinary incontinence. Evaluation: Urinalysis 2+ protein, 2+ blood, Office cystoscopy findings: No suspicious bladder lesions, bladder wall thickening. 21 minutes spent in review of records pe rtaining to this visit and including [id number] discussion with the patient and documentation of this visit. 08/07/23--Israel is a very pleasant 37 ye ar old female patient of Dr. Herzog. She has a past medical history of lupus, depression, morbid obesity, vitamin-D deficiency, hypertension, and proteinuria. She presents to the office today as a new patient for microscopic hematuria. In discussion with the p atvictor m today she reports having followed up with her PCP for her annual visit at which time she was noted to have microscopic hematuria. She reports a longstanding history of proteinuria and has undergone multiple biopsies in the past and follows up with Nephrology. She reports proteinuria is related to her lupus. When asked she currently denies any bothersome urinary issues or concerns. She denies urinary urgency, urinary frequency, incontinence, nocturia, hematuria, dysuria, foul smelling urine, changes to urinary stream, flank pain, fever, and or chills. She is happy with her current voiding parameters. Discussed at length potential causes for microscopic hematuria. She denies smoking history. 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 Discussed surveillance monitoring versus further microscopic hematuria workup with in office cystoscopy, CT urogram, and urine cytology. Discussed risks and benefits of these interventions. In office urinalysis today with 2+ microscopic hematuria, 2+ leukocytes, and 2+ proteinuria. These results were reviewed with the patient today. 09/18/23--PLAN: Follow-up with nurse practitioner in 6 months [facility] Medical History Vaginal discharge Physical exam Open wound of thumb Lupus Mild recurrent major depression Morbid obesity with BMI of 40.0-44.9, adult Vitamin D deficiency BMI 38.0-38.9,adult Intestinal malabsorption following gastrectomy Preeclampsia Obesity (BMI 30-39.9) Knee pain Hypertension Depression Proteinuria Autoimmune thyroiditis SLE (systemic lupus erythematosus related syndrome) Surgical History History of foot surgery History of open reduction and internal fixation (ORIF) procedure History of sleeve gastrectomy Status post biopsy of kidney Family History Father Asthma Mother No problems noted. Brother No problems noted. Brother No problems noted. Sister No problems noted. Social History Housing: Apartment Alcohol intake: never Patient Tobacco Use Status: Never used Tobacco e-Cigarette/Vaping Use: Never Used Second Hand Smoke Exposure: No service: No Current occupational status: unemployed Current occupational exposures/hazards: No Cognitive needs: No Hearing needs: No Vision needs: No Female Reproductive History Menstrual Age of Menarche: 11 Office Procedures Cystoscopy Consent Discussed risk and benefit or proposed procedure with the patient. Information consent for procedure given to the patient. Discussed technical aspects, risks, benefits and alternatives in full. Addressed all of the patient's questions and concerns regarding the procedure. The patient demonstrated knowledge and understanding. They wish to proceed with this procedure. Preparation The patient was prepped in the usual manner. A concrete panel installer was present and in the room. Genitalia was prepped with betadine solution in a sterile manner. Lidocaine Jelly 2% was placed into the urethra and 16Fr flexible Olympus cystoscope was inserted into the meatus after adequate lubrication. 46421-Simblaotma DISPOSABLE SCOPE URO-G FLEXIBLE SCOPE Procedure code (CPT) selection complete Office Meds lidocaine HCl 2 % mucosal jelly in applicator Performing Provider: Mike Perla MD Performing Location: [facility] [place] [facility] Administered by: Bipin Brown LPN on 09/18/23 11:05 Dose Route Admin Location Dispensed Lot Number Expiration Date [facility] Wood Gouger 20 mL intra-urethral 20 mL naproxen 500 mg tablet Performing Provider: Mike Perla MD Performing Location: [facility] [place] [facility] Administered by: Bipin Brown LPN on 09/18/23 11:05 Dose Route Admin Location Dispensed Lot Number Expiration Date [place] Wood Gouger 500 mg PO 1 tab ciprofloxacin HCl 500 mg tablet Performing Provider: Mike Perla MD Performing Location: [facility] [place] [facility] Administered by: Bipin Brown LPN on 09/18/23 11:05 Dose Route Admin Location Dispensed Lot Number Expiration Date [place] Wood Gouger 500 mg PO 1 tab Results AMB Urinalysis, Automated UA Leukoctes 0 Heriberto/uL Last Edit by Vy Rogers CMA on 09/18/23 10 :33 UA Nitrite Negative Last Edit by Vy Rogers CMA on 09/18/23 10: 33 UA Urobilinogen 0.2 mg/dL Last Edit by Vy Rogers CMA on 4 10:33 UA Protein 100 mg/dL Last Edit by Vy Rogers CMA on 09/18/23 10: 33 UA pH 6.0 Last Edit by Vy Rogers CMA on 09/18/23 10:33 UA Blood 80 Brian/uL Last Edit by Vy Rogers CMA on 09/18/23 10:33 UA Specific [place] 1.020 Last Edit by Vy Rogers CMA on 10:33 UA Ketone Negative Last Edit by Vy Rogers CMA on 09/18/23 10:3 3 UA Bilirubin 0 mg/dL Last Edit by Vy Rogers CMA on 09/18/23 10: 33 UA Glucose 0 mg/dL Last Edit by Vy Rogers CMA on 09/18/23 10:33 Results Reviewed Results Reviewed: Laboratory Last Values Urine pH (Auto) 6.0 09/18/23 10:32 Specific [place] (Auto) 1.020 09/18/23 10:32 Urine Protein (Auto) 100 mg/dL 09/18/23 10:32 Glucose (UA)(Auto) 0 mg/dL 09/18/23 10:32 Urine Ketones (Auto) Negative 09/18/23 10:32 Urine Blood (Auto) 80 Brian/uL 09/18/23 10:32 Urine Nitrite (Auto) Negative 09/18/23 10:32 Urine Bilirubin (Auto) 0 mg/dL 09/18/23 10:32 Urine Urobilinogen (Auto) 0.2 mg/dL 09/18/23 10:32 Leukocyte Esterase (Auto) 0 Heriberto/uL 09/18/23 10:32 Date of Service: 09/13/23 EXAMINATION: CT ABDOMEN AND PELVIS WITHOUT AND WITH CONTRAST CLINICAL INFORMATION: Microscopic hematuria. COMPARISON: Abdominal ultrasound dated 08/02/2016; CT abdomen and pelvis dated 07/31/2013. TECHNIQUE: Noncontrast CT of the abdomen and pelvis is performed followed by split bolus contrast-enhanced images using 85 mL Omnipaque 350 contrast.? Postcontrast imaging is performed during the combined nephrogram and excretion phase. Sagittal and coronal reformatted images were obtained on the technologist's workstation for both the precontrast and postcontrast phases. This CT examination was performed using dose optimization techniques as appropriate, variously including the following: *Automated exposure control *Adjustment of mA and/or kV according to patient size (this includes techniques or standardized protocols for targeted exams where dose is matched to indication/reason for exam; i.e. extremities or head) *Use of iterative reconstruction technique DLP: 1511 mGy-cm FINDINGS: LUNG BASES: The visualized lung bases are unremarkable. LIVER, GALLBLADDER, AND BILIARY TREE: The liver is normal in size, shape, and attenuation. No focal hepatic lesion or biliary ductal dilatation is present. The gallbladder contains a small dependent calculus, without wall thickening or obvious pericholecystic inflammatory change. PANCREAS: Unremarkable. SPLEEN: Unremarkable. ADRENAL GLANDS: Unremarkable. KIDNEYS AND URETERS: The kidneys are normal in size, shape, and attenuation. No hydronephrosis, hydroureter, or calculi seen. No perinephric stranding. BLADDER: Unremarkable, with imaging somewhat limited by metallic streak artifact from right hip orthopedic hardware. No mass, nodule, calculus or wall thickening is seen. GASTROINTESTINAL TRACT: There are gastric surgical surekha. The small and large bowel are unremarkable. The appendix is unremarkable. ABDOMINAL WALL: Unremarkable. No significant hernia defect is noted. LYMPH NODES: Normal. VASCULAR: Unremarkable. PELVIC VISCERA: The uterus and adnexa are unremarkable. OSSEUS STRUCTURES: At T11-T12, there is a mild degenerative disc disease, with vacuum disc phenomenon and endplate arthropathy. No acute or aggressive osseous finding is seen. IMPRESSION: 1. No urinary mass, calculus or obstruction is seen. 2. There is mild cholelithiasis. 3. There is no abdominopelvic free fluid or lymphadenopathy. 4. There is mild degenerative disc disease at T11-T12. Assessment & Plan Assessment & Plan (1) Microscopic hematuria: Code(s): R31.29 - Other microscopic hematuria Plan Follow-up with nurse practitioner in 6 months Orders: Orders 2 AMB Cystoscopy Today R31.29 - Other microscopic hematuria, R31.9 - Hematuria, unspecified AMB Urinalysis Automated Today R33.9 - Retention of urine, unspecified Patient Instructions: The patient had an opportunity to ask questions regarding treatment plan. All questions were answered. Imaging, Laboratory studies and physical exam results were discussed and reviewed in detail. No major barriers to understanding were identified. The patient expressed understanding and agreement with the above treatment plan. The patient is aware they should contact our office by phone for worsening of their current condition or the appearance of new symptoms. Compliance is encouraged with any medications and followup testing that is ordered. It is a privilege to be allowed the opportunity to participate in the urologic care of your patient. If you have any questions or concerns regarding treatment for the above conditions please do not hesitate to contact me. The office telephone contact is [phone]. This note is constructed in part using voice recognition software. While every effort has been made to ensure accuracy financial reporting specialist errors may have been included. Yours sincerely, Mike Perla MD Coding Level of Care Code Est Pt Level 3 (42204) Diagnoses Microscopic hematuria R31.29 CPT Codes Cystoscopy - CPT: 86634-[id number] ([id number])
== END 2023-09-18 11:45 | disposition home or self-care (01) ==
PROVIDERS: PCP Internal Medicine; Visit Provider Urology
DX: R31.29 Other microscopic hematuria (principal); R33.9 Retention of urine, unspecified
CPT/HCPCS: 52000; 99213

== ENCOUNTER → 2023-09-18 10:14 | Outpatient (BNVA) | payer OTHER, SELFPAY | PROVIDERS: PCP Internal Medicine; Visit Provider Urology | DX: R31.29 Other microscopic hematuria (principal) | CPT/HCPCS: 52000; 81003; 99212 ==

== ENCOUNTER 2023-10-20 10:48 | Outpatient (AMB) | payer OTHER, SELFPAY ==
[2023-10-20 11:12] VITALS: BMI 45.3
--- NOTE | 2023-10-20 11:12 | A.OFFVIS_ITS ---
Intake Vital Signs 10/20/23 11:12 Height 5 ft 4 in Weight 264 lb BMI 45.3 Intake Visit Reasons: ? vaginal infection Intake Note: has been having vaginal itch and watery discharge had finished antibiotic a week ago and sx started right after. Precision Honer Required: No Information Interpreted: non-clinical & clinical Bankruptcy Judge: Bankruptcy Judge Present (Aidyn) Allergies metformin [METFORMIN] Allergy (Intermediate, Verified 10/20/23 11:13) INFLAMMED GUMS, red gums, redness of gums doxycycline Adverse Reaction (Intermediate, Verified 10/20/23 11:13) Itching Medication List - Last Reconciled 10/20/23 by Edelmira Pagan CNM acetaminophen (Tylenol) 650 mg (2 x 325 mg) PO Q4H PRN albuterol sulfate 90 mcg/actuation (ProAir HFA) 2 puffs PO Q4-6H PRN cetirizine 10 mg PO DAILY PRN cholecalciferol (vitamin D3) 125 mcg PO DAILY clotrimazole 1% appl topical DAILY docosanol 10% (Abreva) 1 appl topical TID escitalopram oxalate mg PO fluticasone propionate 50 mcg/actuation (Flonase Allergy Relief) 1 spray intranasal DAILY 30 days furosemide 20 mg PO DAILY PRN [hinge brace HEAVY DUTY] hydroxychloroquine (Plaquenil) 200 mg PO BID iron,carbonyl-vitamin C 65 mg iron- 125 mg (Vitron-C) 1 tab PO BEDTIME leflunomide 10 mg PO DAILY levothyroxine 25 mcg PO DAILY 90 days loratadine 10 mg PO DAILY PRN 90 days Shower Chair HEAVY DUTY trazodone 25 - 50 mg PO BEDTIME triamcinolone acetonide (Nasal Allergy) 2 sprays intranasal DAILY valsartan 160 mg PO DAILY zinc gluconate 30 mg PO DAILY Is last menstrual period known: Yes Last menstrual period: 09/06/23 Post menopausal: No HPI ? vaginal infection HPI Details Patient says she was on antibiotics for an infection under her left nostril that she has had before and she was on something that began with a see and when I asked her if it was cephalexin she said it might of been. She said she was feeling itchy and warm and had a thin white discharge. She says she does not have diabetes. She says her lupus doctor in [place] whose name she does not know told her she might have rashes and so she did not know if that was connected or not to the infection she had under her nose. She did not share until she was actually leaving the office that she also had been given a prescription for 2 pills take that she thought might of been prevent yeast and she took them 2 days in a row last week. She does not know the name and she did not read the instructions because she through them out. [facility] Medical History Vaginal discharge Physical exam Open wound of thumb Lupus Mild recurrent major depression Morbid obesity with BMI of 40.0-44.9, adult Vitamin D deficiency BMI 38.0-38.9,adult Intestinal malabsorption following gastrectomy Preeclampsia Obesity (BMI 30-39.9) Knee pain Hypertension Depression Proteinuria Autoimmune thyroiditis SLE (systemic lupus erythematosus related syndrome) Surgical History History of foot surgery History of open reduction and internal fixation (ORIF) procedure History of sleeve gastrectomy Status post biopsy of kidney Family History Father Asthma Mother No problems noted. Brother No problems noted. Brother No problems noted. Sister No problems noted. Social History Housing: Apartment Alcohol intake: never Patient Tobacco Use Status: Never used Tobacco e-Cigarette/Vaping Use: Never Used Second Hand Smoke Exposure: No service: No Current occupational status: unemployed Current occupational exposures/hazards: No Cognitive needs: No Hearing needs: No Vision needs: No Female Reproductive History Menstrual Age of Menarche: 11 Date of last menstrual period: 09/06/23 control method: none Total pregnancies: 1 Premature: 2 Multiple births: 1 Date of last pap smear: 01/21/22 (negative) History of abnormal pap smear: Yes (2010 [facility]) Physical Exam Vital Signs: BMI result Body Mass Index 45.3 Other: Please note patient was unable to really open her legs out permit the speculum to advance anywhere past the introitus vaginal mucosa that was visible was within normal limits there was no redness or erythema or discharge that appeared consistent with yeast nevertheless because her symptoms and recent antibiotic use I am treating her with Monistat cream that she can use p.r.n. as she needs teaching was done about yeast and is common occurrence with having been on antibiotics as patient is leaving she also then shared that when they gave her the prescription for antibiotics they also gave her a prescription of 2 pills to take that she thinks was for yeast and she took 1 1 day and 1 the next day and I asked her about the instructions you she said there were not any could she threw them out. External Female Exam: normal external appearance and normal appearance of the urethra Speculum Exam - Vagina: normal appearance of the vagina and normal vaginal discharge Speculum Exam - Cervix: Cervical os closed Assessment & Plan Assessment & Plan (1) Morbid obesity with BMI of 45.0-49.9, adult: Code(s): E66.01 - Morbid (severe) obesity due to excess calories; Z68.42 - Body mass index [BMI] 45.0-49.9, adult (2) Vaginal irritation: Comment: Status post recent antibiotics and possibly may have been treated with Diflucan already. Will treat is mild yeast with Monistat cream for p.r.n. use. Code(s): N89.8 - Other specified noninflammatory disorders of vagina (3) Vulvovaginitis sunday albicans: Code(s): B37.3 - Candidiasis of vulva and vagina (4) Hip pain: Comment: Patient states she has been in her hips since age 9. She was unable to relax her musculature to permit full pelvic exam 10/20/2023. Code(s): M25.559 - Pain in unspecified hip Plan Please note patient was unable to really open her legs out permit the speculum to advance anywhere past the introitus vaginal mucosa that was visible was within normal limits there was no redness or erythema or discharge that appeared consistent with yeast nevertheless because her symptoms and recent antibiotic use I am treating her with Monistat cream that she can use p.r.n. as she needs teaching was done about yeast and is common occurrence with having been on antibiotics as patient is leaving she also then shared that when they gave her the prescription for antibiotics they also gave her a prescription of 2 pills to take that she thinks was for yeast and she took 1 1 day and 1 the next day and I asked her about the instructions you she said there were not any could she threw them out. I also reviewed with her that she does fasting blood work ordered by her PCC to get done before her next visit with her which she says is a six-month follow-up so maybe in December. Additionally I discussed her non ability to relax her hips outward permit a full speculum exam. Suggested would be on relaxing her hips before her next pelvic exam and Pap smear whenever that is. She said she has a pin in her hips and she was age 9 but she has had a pain in its since last week. She said PT did not work. Orders: Orders Bacterial Vaginosis Panel Today N89.8 - Other specified noninflammatory disorders of vagina CT NG by PCR Today N89.8 - Other specified noninflammatory disorders of vagina Medications: New miconazole nitrate 2% (Miconazole-7) 1 appful vaginal BEDTIME 7 days 45 grams 1RF Coding Level of Care Code Est Pt Level 3 (76001) Diagnoses Morbid obesity with BMI of 45.0-49.9, adult E66.01; Z68.42 Vaginal irritation N89.8 Vulvovaginitis sunday albicans B37.3 Hip pain M25.559
== END 2023-10-20 11:54 | disposition home or self-care (01) ==
LOC: HO.HWSM 10:48
PROVIDERS: PCP Internal Medicine; Visit Provider Advanced Practice Midwife
DX: N89.8 Other specified noninflammatory disorders of vagina (principal); B37.31 Acute candidiasis of vulva and vagina; E66.01 Morbid (severe) obesity due to excess calories; Z68.42 Body mass index [BMI] 45.0-49.9, adult
CPT/HCPCS: 99213

== ENCOUNTER 2023-10-20 10:48 | Outpatient (REF) | payer OTHER, SELFPAY ==
[2023-10-21 02:40] LABS: CT PCR NOT DETECTED (Not Detect.); NG PCR NOT DETECTED (Not Detect.)
[2023-10-21 13:22] LABS: BV Int Neg Control Negative (Negative); BV Int Pos Control Positive (Positive)
== END 2023-10-20 10:49 | disposition home or self-care (01) ==
LOC: HO.LNP 10:48
PROVIDERS: PCP Internal Medicine; Visit Provider Advanced Practice Midwife
DX: E66.01 Morbid (severe) obesity due to excess calories (principal); N89.8 Other specified noninflammatory disorders of vagina; B37.31 Acute candidiasis of vulva and vagina
CPT/HCPCS: 0353U; 87480; 87510; 87660; 99212

== ENCOUNTER 2023-12-03 13:47 | Emergency (ER) | payer OTHER, SELFPAY ==
[2023-12-03 14:24] VITALS: BP 157/76; PULSE 75; RESP 16; TEMP 36.4; O2SAT 100; BMI 47.0
--- NOTE | 2023-12-03 14:25 | ED.GENADULT ---
HPI - General Adult General Chief complaint: Recheck/Abnormal Lab/Rx Stated complaint: Low iron, weakness Time Seen by Provider: 12/03/23 22:52 Source: patient Mode of arrival: ambulatory Limitations: no limitations History of Present Illness ED Provider: dolores CHASE narrative: Patient's history of anxiety unable to sleep for last few nights feels low energy week feels her iron level is low no shortness a breath no melena no GI bleed no abdominal pain Related Data Home Medications ?Medication ?Instructions ?Recorded ?Confirmed trazodone 50 mg tablet 25 - 50 mg PO BEDTIME 01/20/22 10/20/23 furosemide 20 mg tablet 20 mg PO DAILY PRN edema 04/22/22 10/20/23 escitalopram oxalate 10 mg tablet mg PO 02/06/23 10/20/23 valsartan 160 mg tablet 160 mg PO DAILY 02/06/23 10/20/23 clotrimazole 1 % topical cream appl topical DAILY 04/10/23 10/20/23 leflunomide 10 mg tablet 10 mg PO DAILY 06/28/23 10/20/23 Previous Rx's ?Medication ?Instructions ?Recorded hydroxychloroquine 200 mg tablet 200 mg PO BID #60 tabs 10/29/20 (Plaquenil) fluticasone propionate 50 1 spray intranasal DAILY 30 days 01/21/21 mcg/actuation nasal #150 mL spray,suspension (Flonase Allergy Relief) albuterol sulfate 90 mcg/actuation 2 puff PO Q4-6H PRN for wheezing 02/16/21 aerosol inhaler (ProAir HFA) #8.5 grams acetaminophen 325 mg capsule 650 mg (2 x 325 mg) PO Q4H PRN 07/02/21 (Tylenol) pain #30 caps Shower Chair #1 ea 11/01/22 hinge brace #1 ea 11/01/22 cetirizine 10 mg tablet 10 mg PO DAILY PRN allergy 04/15/23 symptoms #30 tabs triamcinolone acetonide 55 mcg 2 spray intranasal DAILY #16.9 mL 04/15/23 nasal spray aerosol (Nasal Allergy) docosanol 10 % topical cream 1 appl topical TID #2 grams 06/16/23 (Abreva) iron,carbonyl 65 mg-vitamin C 125 1 tab PO BEDTIME #90 tabs 06/20/23 mg tablet,delayed release (Vitron-C) zinc gluconate 30 mg tablet 30 mg PO DAILY #90 tabs 06/20/23 cholecalciferol (vitamin D3) 125 125 mcg PO DAILY #90 caps 06/27/23 mcg (5,000 unit) capsule loratadine 10 mg tablet 10 mg PO DAILY PRN allergic 09/04/23 symptoms 90 days #90 tabs levothyroxine 25 mcg tablet 25 mcg PO DAILY 90 days #90 tabs 09/27/23 miconazole nitrate 2 % vaginal 1 appful vaginal BEDTIME 7 days 10/20/23 cream (Miconazole-7) #45 grams ferrous gluconate 324 mg (37.5 mg 324 mg PO DAILY #90 tabs 12/03/23 iron) tablet Allergies Allergy/AdvReac Type Severity Reaction Status Date / Time metformin [METFORMIN] Allergy Intermediate INFLAMMED Verified 12/03/23 14:27 GUMS, red gums, redness of gums doxycycline AdvReac Intermediate Itching Verified 12/03/23 14:27 Review of Systems Review of Systems: Yes all other systems are reviewed and are negative PENDING SALE TO [facility] Past Medical History Medical History Vaginal discharge Physical exam Open wound of thumb Lupus Mild recurrent major depression Morbid obesity with BMI of 40.0-44.9, adult Vitamin D deficiency BMI 38.0-38.9,adult Intestinal malabsorption following gastrectomy Preeclampsia Obesity (BMI 30-39.9) Knee pain Hypertension Depression Proteinuria Autoimmune thyroiditis SLE (systemic lupus erythematosus related syndrome) Surgical History History of foot surgery History of open reduction and internal fixation (ORIF) procedure History of sleeve gastrectomy Status post biopsy of kidney Family History Family History Father Asthma Mother No problems noted. Brother No problems noted. Brother No problems noted. Sister No problems noted. Social History Social History Housing: Apartment Alcohol intake: never Patient Tobacco Use Status: Never used Tobacco e-Cigarette/Vaping Use: Never Used Second Hand Smoke Exposure: No Advance Directives: No Advance Directives Information Provided: No service: No Current occupational status: unemployed Current occupational exposures/hazards: No Cognitive needs: No Hearing needs: No Vision needs: No Physical Exam ED Vital Signs: BMI result Body Mass Index 47.0 Appearance: Alert. Oriented X3. No acute distress. Anxious Eyes: Mild pallor ENT: Pharynx normal. Oral Mucosa moist Neck: Normal inspection. Neck supple. CVS: Normal heart rate and rhythm. Pulses normal. Respiratory: No respiratory distress. Equal air entry bilateral, no wheezing/rales/rhonchi Abdomen: Soft and nontender. Bowel sounds are present, Skin: Skin warm and dry. Normal skin color. Normal skin turgor. Extremities: No lower extremity edema. No calf tenderness Neuro: Oriented X 3. No motor deficit. Course Course Course Narrative: RME- 38 year old female presents for evaluation of general weakness. She reports she is waiting to see a head of measurement & insights due to low iron. She endorses feeling short of breath earlier today. Plan for labs, EKG. Medical Decision Making Medical Decision Making [facility] Narrative: Patient with chronic anemia with anxiety feeling much better after been told that hemoglobin stable will prescribe her ferrous sulfate Differential Diagnosis Differential Diagnoses: The differential diagnosis associated with the presentation includes Lab Data [facility] Lab Attestation statement: I reviewed the patient's lab results. 12/03/23 15:53 12/03/23 15:53 Labs: Lab Results 12/03/23 12/03/23 Range/Units 15:53 16:12 WBC 6.5 (4.8-10.8) X10*3/uL RBC 4.36 (4.20-5.50) X10*6/uL Hgb 10.9 L (12.0-16.0) g/dl Hct 34.0 L (37.0-47.0) % MCV 78.0 L (80.0-98.0) fL MCH 25.0 L (27.0-33.0) pg MCHC 32.1 (31.0-35.0) g/dl RDW 16.7 H (11.0-16.0) % Plt Count 250 (160-400) X10*3/uL MPV 11.7 (9.4-12.3) fL Immature Gran % (Auto) 0.2 (0.0-0.4) % Neut % (Auto) 71.3 (45-73) % Lymph % (Auto) 18.4 L (20-40) % Grainger % (Auto) 7.6 (2-11) % Eos % (Auto) 1.7 (0-4) % Baso % (Auto) 0.8 (0-2) % Lymph # (Auto) 1.2 (1.2-4.9) X10*3/uL Grainger # (Auto) 0.5 (0.1-1.2) X10*3/uL Eos # (Auto) 0.1 (0.0-0.4) X10*3/uL Baso # (Auto) 0.1 (0.0-0.2) X10*3/uL Abs Immat Gran (auto) 0.01 (0.00-0.03) X10*3/uL Absolute Neuts (auto) 4.6 (2.0-8.3) x10*3/uL Absolute Nucleated RBC 0.000 (0.0-0.012) X10*3/uL Nucleated RBC % (auto) 0.0 (0.0-0.2) /100WBC PT 11.8 (11.1-13.3) SEC INR 1.0 (0.9-1.1) Sodium 141 (135-145) mmol/L Potassium 4.1 (3.3-5.1) mmol/L Chloride 113 H (96-108) mmol/L Carbon Dioxide 20 L (22-29) mmol/L Anion Gap 12 (12-20) BUN 24 H (9-16) mg/dL Creatinine 1.53 H (0.5-1.4) mg/dL Estim Creat Clear Calc 63.6 Estimated GFR 38 Random Glucose 72 (60-115) mg/dL Calcium 8.5 (8.4-10.2) mg/dL Iron 40 (30-160) mcg/dL TIBC 296 (228-428) mcg/dL % Saturation 14 L (15-50) % Unsat Iron Binding 256 ug/dL Total Bilirubin 0.2 (0.0-1.0) mg/dL AST 17 (5-31) U/L ALT 17 (0-31) U/L Alkaline Phosphatase 90 (39-117) U/L Troponin I High Sens < 2.7 (<3.5-17.0) ng/L B-Natriuretic Peptide 159 H (<100) pg/mL Total Protein 6.9 (6.5-8.0) g/dL Albumin 3.5 (3.5-5.0) g/dL Lipase 32 (8-78) U/L Urine Color Yellow Urine Appearance Clear Urine pH 5.5 (5.0-9.0) Ur Specific [place] 1.015 (1.005-1.025) Urine Protein 30 (1+) H (Neg-Trace) mg/dL Urine Glucose (UA) Negative (Negative) mg/dL Urine Ketones Negative (Negative) mg/dL Urine Blood Negative (Negative) Urine Nitrite Negative (Negative) Ur Leukocyte Esterase Negative (Negative) Urine RBC 0-2 (0-2) /HPF Urine WBC 0-5 (0-5) /HPF Ur Squamous Epith Cells 0-2 (0-2) /HPF Urine Bacteria None Seen (None Seen) Hyaline Casts 3-5 (0-2) /LPF Discharge Plan Discharge Clinical Impression: Iron deficiency anemia, Insomnia Patient Disposition: Home, Self-Care Instructions: Iron Rich Diet (ED), Iron Deficiency Anemia (ED), Insomnia (ED) Additional Instructions: Sleep well Drink plenty of fluids Take iron tablets daily Follow up the PCP Prescriptions: New ferrous gluconate 324 mg (37.5 mg iron) tablet 324 mg PO DAILY Qty: 90 1RF No Action albuterol sulfate [ProAir HFA] 90 mcg/actuation HFA aerosol inhaler 2 puff PO Q4-6H PRN (Reason: for wheezing) Qty: 8.5 0RF (DME) hinge brace See Rx Instructions .Route .MEDSUPPLY Qty: 1 0RF Rx Instructions: HEAVY DUTY (DME) Shower Chair Misc See Rx Instructions .Route Qty: 1 0RF Rx Instructions: HEAVY DUTY Vitron-C 65 mg iron- 125 mg tablet,delayed release (DR/EC) 1 tab PO BEDTIME Qty: 90 3RF zinc gluconate 30 mg tablet 30 mg PO DAILY Qty: 90 3RF cholecalciferol (vitamin D3) 125 mcg (5,000 unit) capsule 125 mcg PO DAILY Qty: 90 3RF loratadine 10 mg tablet 10 mg PO DAILY PRN (Reason: allergic symptoms) 90 Days Qty: 90 0RF levothyroxine 25 mcg tablet 25 mcg PO DAILY 90 Days Qty: 90 0RF acetaminophen [Tylenol] 325 mg capsule 650 mg PO Q4H PRN (Reason: pain) Qty: 30 0RF triamcinolone acetonide [Nasal Allergy] 55 mcg aerosol,spray 2 spray intranasal DAILY Qty: 16.9 0RF Rx Instructions: administer into each nostril cetirizine 10 mg tablet 10 mg PO DAILY PRN (Reason: allergy symptoms) Qty: 30 0RF fluticasone propionate [Flonase Allergy Relief] 50 mcg/actuation spray,suspension 1 spray intranasal DAILY 30 Days Qty: 150 0RF Rx Instructions: administer into each nostril docosanol [Abreva] 10 % cream 1 appl topical TID Qty: 2 0RF leflunomide 10 mg tablet 10 mg PO DAILY hydroxychloroquine [Plaquenil] 200 mg tablet 200 mg PO BID Qty: 60 3RF trazodone 50 mg tablet 25 - 50 mg PO BEDTIME furosemide 20 mg tablet 20 mg PO DAILY PRN (Reason: edema) escitalopram oxalate 10 mg tablet PO valsartan 160 mg tablet 160 mg PO DAILY clotrimazole 1 % cream topical DAILY miconazole nitrate [Miconazole-7] 2 % cream 1 appful vaginal BEDTIME 7 Days Qty: 45 1RF Interventions: ED Discharge Assessment Last Done: 12/03/23 23:59 Discharge Date/Time: 12/04/23 00:00 Print Language: Israeli
--- NOTE | 2023-12-03 14:26 | ECG_ITS ---
Test Reason : SHORTNESS OF BREATH Blood Pressure : / mmHG Vent. Rate : 067 BPM Atrial Rate : 067 BPM P-R Int : 126 ms QRS Dur : 070 ms QT Int : 406 ms P-R-T Axes : 012 -23 038 degrees QTc Int : 429 ms Normal sinus rhythm Low voltage QRS Nonspecific T wave abnormality Abnormal ECG When compared with ECG of 04-OCT-2022 08:52, Nonspecific T wave abnormality, worse in Inferior leads Nonspecific T wave abnormality now evident in Lateral leads Referred By: Zaki Stanford Electronically Signed By:Prabhakar Turk
[2023-12-03 16:11] LABS: MANUAL DIFF FLAG NO
[2023-12-03 16:18] LABS: Basophils Absolute Auto 0.1 X10*3/uL (0.0-0.2); Basophils Percent Auto 0.8 % (0-2); Eosinophils Absolute Auto 0.1 X10*3/uL (0.0-0.4); Eosinophils Percent Auto 1.7 % (0-4); Hemoglobin 10.9 g/dl (12.0-16.0); Imm Gran Abs Auto 0.01 X10*3/uL (0.00-0.03); Imm Gran Pct Auto 0.2 % (0.0-0.4); Lymphocytes Absolute Auto 1.2 X10*3/uL (1.2-4.9); Lymphocytes Percent Auto 18.4 % (20-40); Mean Corpuscular HGB Conc 32.1 g/dl (31.0-35.0); Mean Platelet Volume 11.7 fL (9.4-12.3); Monocytes Absolute Auto 0.5 X10*3/uL (0.1-1.2); Monocytes Percent Auto 7.6 % (2-11); Neutrophils Absolute Auto 4.6 x10*3/uL (2.0-8.3); Neutrophils Percent Auto 71.3 % (45-73); Platelet Count 250 X10*3/uL (160-400); Red Blood Count 4.36 X10*6/uL (4.20-5.50); Red Cell Distribution Width 16.7 % (11.0-16.0); White Blood Count 6.5 X10*3/uL (4.8-10.8)
[2023-12-03 16:19] LABS: Appearance Urine Clear; Color Urine Yellow; Glucose Urine UA Negative (Negative); Leukocyte Esterase Urine Negative (Negative); Nitrite Urine Negative (Negative); PH 5.5 (5.0-9.0); Specific Gravity - Urine 1.015 (1.005-1.025); UMIC TRIGGER UACC YES; Urine Blood Negative (Negative); Urine Ketones Negative (Negative); Urine Protein 30 (1+) mg/dL (Neg-Trace)
[2023-12-03 16:23] LABS: Prothrombin Time 11.8 SEC (11.1-13.3)
[2023-12-03 16:24] LABS: Bacteria Urine None Seen (None Seen); RBC Urine 0-2 /HPF (0-2); Squamous Epithelial Cell Urine 0-2 /HPF (0-2); WBC Urine 0-5 /HPF (0-5)
[2023-12-03 16:32] LABS: Alanine Aminotransferase 17 U/L (0-31); Albumin Level 3.5 g/dL (3.5-5.0); Alkaline Phosphatase 90 U/L (39-117); Anion Gap 12 (12-20); Aspartate Amino Transferase 17 U/L (5-31); Bilirubin Total 0.2 mg/dL (0.0-1.0); Blood Urea Nitrogen 24 mg/dL (9-16); Calcium 8.5 mg/dL (8.4-10.2); Carbon Dioxide 20 mmol/L (22-29); Chloride 113 mmol/L (96-108); Creatinine Clr Calc Pharmacy 63.6; Estimated Glomerular Filt Rate 38; Glucose Random 72 mg/dL (60-115); Iron 40 mcg/dL (30-160); Lipase 32 U/L (8-78); Percent Iron Saturation 14 % (15-50); Potassium 4.1 mmol/L (3.3-5.1); Sodium 141 mmol/L (135-145); Total Iron Binding Capacity 296 mcg/dL (228-428); Total Protein 6.9 g/dL (6.5-8.0); Unsaturated Iron Binding 256 ug/dL
[2023-12-03 16:40] LABS: Troponin-I High Sensitivity < 2.7 ng/L (<3.5-17.0)
[2023-12-03 16:54] LABS: B Type Natriuretic Peptide 159 pg/mL (<100)
[2023-12-03 23:23] VITALS: BP 150/79; PULSE 67; RESP 16; TEMP 36.7; O2SAT 100
[2023-12-03 23:59] VITALS: BP 150/79; PULSE 67; RESP 16; TEMP 36.7; O2SAT 100
== END 2023-12-04 | disposition home or self-care (01) ==
PROVIDERS: Physician Assistant; Emergency Provider Internal Medicine; PCP Internal Medicine
DX: D50.9 Iron deficiency anemia, unspecified (principal); G47.00 Insomnia, unspecified; I10 Essential (primary) hypertension
CPT/HCPCS: 36415; 80053; 81001; 83540; 83690; 83880; 84484; 85025; 85610; 93005; 99283

== ENCOUNTER → 2023-12-03 14:26 | Outpatient (BNV) | payer OTHER, SELFPAY | PROVIDERS: Emergency Provider Internal Medicine; PCP Internal Medicine; Visit Provider Internal Medicine Cardiovascular Disease | DX: R94.31 Abnormal electrocardiogram [ECG] [EKG] (principal) | CPT/HCPCS: 93010 ==

== ENCOUNTER 2024-01-01 07:44 | Outpatient (AMB) | payer OTHER, SELFPAY ==
[2024-01-01 07:54] VITALS: BP 102/76; BMI 44.6
--- NOTE | 2024-01-01 07:54 | A.OFFPC_ITS ---
Vital Signs 01/01/24 07:54 Height 5 ft 4 in Weight 260 lb BMI 44.6 BP 102/76 Blood Pressure Location Lt brachial Position Sitting Intake Visit Reasons: depression,lupus Intake Note: Patient here for a follow up depression, lupus Electronic Warfare Specialist Required: No Accompanied by: Self / Same As Patient Allergies metformin [METFORMIN] Allergy (Intermediate, Verified 01/01/24 08:06) INFLAMMED GUMS, red gums, redness of gums doxycycline Adverse Reaction (Intermediate, Verified 01/01/24 08:06) Itching Medication List - Last Reconciled 01/01/24 by Delores Silva MD acetaminophen (Tylenol) 650 mg (2 x 325 mg) PO Q4H PRN albuterol sulfate 90 mcg/actuation (ProAir HFA) 2 puffs PO Q4-6H PRN cetirizine 10 mg PO DAILY PRN cholecalciferol (vitamin D3) 125 mcg PO DAILY clotrimazole 1% appl topical DAILY docosanol 10% (Abreva) 1 appl topical TID escitalopram oxalate mg PO ferrous gluconate 324 mg PO DAILY fluticasone propionate 50 mcg/actuation (Flonase Allergy Relief) 1 spray intranasal DAILY 30 days furosemide 20 mg PO DAILY PRN [hinge brace HEAVY DUTY] hydroxychloroquine (Plaquenil) 200 mg PO BID leflunomide 10 mg PO DAILY levothyroxine 25 mcg PO DAILY 90 days loratadine 10 mg PO DAILY PRN 90 days Shower Chair HEAVY DUTY trazodone 25 - 50 mg PO BEDTIME triamcinolone acetonide (Nasal Allergy) 2 sprays intranasal DAILY valsartan 160 mg PO DAILY zinc gluconate 30 mg PO DAILY Tobacco use date assessed: 01/01/24 Dental Screening Dental Screen Date: 01/01/24 Did you have a dental visit in the last 12 months?: Yes Did you have a dental problem in the last 6 months where you did not have access to dental care?: No Was dental information given to patient?: Patient has dentist HPI HPI Comments History of Present Illness Details This is a 38-year-old female with mild recurrent major depression, morbid obesity, systemic lupus erythematosus, hypertension and chronic kidney disease stage 3 that comes today for follow-up on her conditions. Depression has been stable with escitalopram and this is follow by Psychiatry and counseling. Follow-up visit requested for depression. She is morbidly obese with a BMI of 44.6 and is enroll in [facility]. Systemic lupus erythematosus is follow by Rheumatology and has been on hydroxychloroquine for this matter. Blood pressure stable. Last GFR in 11/2023 was 38 which has mildly worsened and this is follow by Nephrology. She has anemia of chronic kidney disease and is on ferrous sulfate. Denies any chest pain or shortness on breath. No fever or cough. [facility] Medical History (Updated 01/01/24 @ 08:41 by Delores Silva MD) Hyperparathyroidism Vaginal discharge Physical exam Open wound of thumb Lupus Mild recurrent major depression Morbid obesity with BMI of 40.0-44.9, adult Vitamin D deficiency BMI 38.0-38.9,adult Intestinal malabsorption following gastrectomy Preeclampsia Obesity (BMI 30-39.9) Knee pain Hypertension Depression Proteinuria Autoimmune thyroiditis SLE (systemic lupus erythematosus related syndrome) Surgical History History of foot surgery History of open reduction and internal fixation (ORIF) procedure History of sleeve gastrectomy Status post biopsy of kidney Family History Father Asthma Mother No problems noted. Brother No problems noted. Brother No problems noted. Sister No problems noted. Social History Housing: Apartment Alcohol intake: never Patient Tobacco Use Status: Never used Tobacco e-Cigarette/Vaping Use: Never Used Second Hand Smoke Exposure: No service: No Current occupational status: unemployed Current occupational exposures/hazards: No Cognitive needs: No Hearing needs: No Vision needs: No Female Reproductive History Menstrual Age of Menarche: 11 Questionnaire PHQ-9 Over the last 2 weeks, how often have you been bothered by any of the following problems? 1. Little interest or pleasure in doing things: not at all 2. Feeling down, depressed, or hopeless: several days 3. Trouble falling or staying asleep, or sleeping too much: several days 4. Feeling tired or having little energy: not at all 5. Poor appetite or overeating: several days 6. Feeling bad about yourself - or that you are a failure or have let yourself or your family down: not at all 7. Trouble concentrating on things, such as reading the newspaper or watching television: several days 8. Moving or speaking so slowly that other people could have noticed. Or the opposite - being so fidgety or restless that you have been moving around a lot more than usual: several days 9. Thoughts that you would be better off or of hurting yourself in some way: not at all Total score: 5 Depression Screening Interpretation: Positive Depression Screening Follow-up: Existing condition, In treatment, Community Mental Health Worker F/U and Follow- up Visit Requested Depression Screening Done: Yes 90662 - PHQ-9 Billing: Yes Source: Developed by Drs. Edmundo Miller, Ghislaine Robbins, Manav Walker and colleagues, with an educational daniel from [employer]. Thrive Questionnaire Date Thrive assessed: 01/01/24 I am a: Patient What is your living situation today?: I have a steady place to live Within the past 12 months, did the food you bought not last and you didn't have the money to get more?: Never true Within the past 12 months, did you worry whether your food would run out before you got money to buy more?: Never true Do you have trouble paying for medicines?: No Do you have trouble getting transportation to medical appointments?: No Do you have trouble paying your heating and electricity bill?: No Do you have trouble taking care of your child, family member or friend?: No Do you have trouble with day-to-day activities such as bathing, preparing meals, shopping, managing finances, etc.?: No Are you currently unemployed and looking for a job?: No Are you interested in more education?: No Please select the resources that you would like help with: None Currently or been in a relationship where the following occur: no concerns reported THRIVE Score: 0 AUDIT C Alcohol Use Questionnaire (AUDIT-C) 1. How often do you have a drink containing alcohol?: Never Total Score: 0 BETHANIE-7 AMB Questionnaire BETHANIE-7 Date BETHANIE - 7 assessed: 01/01/24 Feeling nervous, anxious, or on edge: 2 = More than half the days Not being able to stop or control worryin = Not at all Worrying too much about different things: 1 = Several days Trouble relaxin = Several days Being so restless that it is hard to sit still: 0 = Not at all Becoming easily annoyed or irritable: 3 = Nearly every day Feeling afraid as if something awful might happen: 3 = Nearly every day Total BETHANIE-7 score (0-4 normal; 5-9 mild; 10-14 moderate; 15-21 severe): 10 Source: Developed by Drs. Edmundo Miller, Ghislaine Robbins, Manav Walker and colleagues, with an educational daniel from [employer]. BETHANIE-7 Assessment Billing BETHANIE-7 Assessment Tool: BETHANIE-7 Assessment 90366 Review of Systems Const All systems reviewed & are unremarkable except as noted in HPI and below Eyes Reports no additional complaints, Denies change in vision and Denies other visual disturbances Card Denies chest pain at rest, Denies chest pain with activity, Denies edema, Denies irregular heart rhythm, Denies claudication, Denies dyspnea, Denies dyspnea on exertion, Denies orthopnea, Denies paroxysmal nocturnal dyspnea and Denies slow heart rate Resp Denies cough, Denies dyspnea and Denies dyspnea on exertion Physical exam (Primary Care) Vital Signs: Last Vital Signs BP 102/76 01/01/24 07:54 BMI result Body Mass Index 44.6 Tobacco/Smoking Status: Tobacco use Status Tobacco use date assessed 01/01/24 01/01/24 08:03 Patient Tobacco Use Status Never used Tobacco 01/01/24 08:03 e-Cigarette/Vaping Use Never Used 01/01/24 08:03 PHQ-9: PHQ-9 Score PHQ-9: Total score 5 01/01/24 08:11 Depression Screening Interpretation: Positive Depression Screening Follow-up: Existing condition, In treatment, Community Mental Health Worker F/U and Follow- up Visit Requested Thrive Assessment: Date of Thrive Assessment Date Thrive assessed 01/01/24 01/01/24 08:03 Currently or been in a relationship where the following occur: no concerns reported Resp Effort & Inspection: normal respiratory effort Auscultation: clear to auscultation bilaterally Cardio Jugular venous distension: no JVD Rate: regular rate Rhythm: regular rhythm Heart sounds: S1 normal heart sound present and S2 normal heart sound present Extrem General: Yes full ROM Psych Appearance: grossly normal Assessment and Plan Assessment & Plan (1) Mild recurrent major depression: Code(s): F33.0 - Major depressive disorder, recurrent, mild Plan: Continue escitalopram. Follow-up visit requested by Psychiatry. (2) Morbid obesity with BMI of 40.0-44.9, adult: Code(s): E66.01 - Morbid (severe) obesity due to excess calories; Z68.41 - Body mass index [BMI] 40.0-44.9, adult Plan: Follow-up with [place] weight management. BMI goal is less than 30. (3) SLE (systemic lupus erythematosus related syndrome): Code(s): M32.9 - Systemic lupus erythematosus, unspecified Plan: Continue hydroxychloroquine. Follow-up with rheumatology. (4) Hypertension: Code(s): I10 - Essential (primary) hypertension Qualifiers: Hypertension type: essential hypertension Qualified Code(s): I10 - Essential (primary) hypertension Plan: Continue valsartan. Blood pressure goal is equal or less than 130/80. (5) CKD (chronic kidney disease) stage 3, GFR 30-59 ml/min: Code(s): N18.30 - Chronic kidney disease, stage 3 unspecified Qualifiers: Chronic kidney disease stage 3 subtype: stage 3b (GFR 30-44) Qualified Code(s): N18.32 - Chronic kidney disease, stage 3b Plan: Continue valsartan. Blood pressure goal is equal or less than 130/80. Avoid NSAIDs. Follow-up with nephrology. Orders: Orders IRON PROFILE Today D64.9 - Anemia, unspecified Thyroid Stimulating Hormone Today E03.9 - Hypothyroidism, unspecified Complete Blood Count Auto Diff Today D64.9 - Anemia, unspecified MM screening mammo BI Today Z12.31 - Encounter for screening mammogram for malignant neoplasm of breast Coding Level of Care Code Est Pt Level 4 (20510) Complex EM visit Add On G2211 Diagnoses Mild recurrent major depression F33.0 Morbid obesity with BMI of 40.0-44.9, adult E66.01; Z68.41 SLE (systemic lupus erythematosus related syndrome) M32.9 Essential hypertension I10 Hypertension type: essential hypertension Stage 3b chronic kidney disease N18.32 Chronic kidney disease stage 3 subtype: stage 3b (GFR 30-44) Additional Codes BETHANIE-7 Assessment Billing - BETHANIE-7 Assessment Tool: BETHANIE-7 Assessment [id number] ([id number]) Time Spent (min) 25
== END 2024-01-01 08:14 | disposition home or self-care (01) ==
PROVIDERS: PCP Internal Medicine; Visit Provider Internal Medicine
DX: I12.9 Hypertensive chronic kidney disease with stage 1 through stage 4 chronic kidney disease, or unspecified chronic kidney disease (principal); N18.32 Chronic kidney disease, stage 3b; F33.0 Major depressive disorder, recurrent, mild; E66.01 Morbid (severe) obesity due to excess calories; Z68.41 Body mass index [BMI] 40.0-44.9, adult; M32.9 Systemic lupus erythematosus, unspecified
CPT/HCPCS: 99214; G2211

== ENCOUNTER 2024-01-30 08:23 | Outpatient (REF) | payer OTHER, SELFPAY ==
--- NOTE | ~2024-01-30 | MM_ITS ---
EXAMINATION: MM SCREENING DIGITAL BREAST TOMOSYNTHESIS, BILATERAL CLINICAL INFORMATION: Screening. Asymptomatic. COMPARISON: Mammography: There are no prior mammograms for comparison. TECHNIQUE: Digital breast tomosynthesis is performed in both the craniocaudal and mediolateral oblique views along with computer-aided detection (CAD). Synthesized 2D images are generated from the tomosynthesis. FINDINGS: The breasts are almost entirely fatty (ACR BI-RADS breast composition Category a). There are no significant masses, abnormal calcifications, or other abnormalities. MM/MM tomosynthesis screening BI IMPRESSION: No mammographic evidence of malignancy. ASSESSMENT: BI-RADS BI-RADS 1 - Negative RECOMMENDATION: Routine annual mammography screening. 1 year F/U This examination should not preclude the clinical evaluation of a suspicious palpable abnormality. This patient's information was entered into a reminder system with a target due date for their next mammogram.
== END 2024-01-30 08:24 | disposition home or self-care (01) ==
LOC: HO.MAMMO 08:23
PROVIDERS: PCP Internal Medicine; Visit Provider Internal Medicine
DX: Z12.31 Encounter for screening mammogram for malignant neoplasm of breast (principal)
CPT/HCPCS: 77063; 77067

== ENCOUNTER → 2024-01-30 08:30 | Outpatient (BNV) | payer OTHER, SELFPAY | PROVIDERS: PCP Internal Medicine; Visit Provider Radiology Diagnostic Radiology | DX: Z12.31 Encounter for screening mammogram for malignant neoplasm of breast (principal) | CPT/HCPCS: 77063; 77067 ==

== ENCOUNTER 2024-03-18 08:38 | Outpatient (AMB) | payer OTHER, SELFPAY ==
--- NOTE | 2024-03-18 08:45 | MHC.OFFVIS ---
Intake Visit Reasons: 6m follow up Intake Note: Patient presents today for follow up on Hematuria Urology Medications: none Blood Thinner: none Smoker: no Sole Seamer Required: No Accompanied by: Self / Same As Patient Allergies metformin [METFORMIN] Allergy (Intermediate, Verified 03/18/24 09:15) INFLAMMED GUMS, red gums, redness of gums doxycycline Adverse Reaction (Intermediate, Verified 03/18/24 09:15) Itching Medication List - Last Reconciled 03/18/24 by BOSSMAN Dewey acetaminophen (Tylenol) 650 mg (2 x 325 mg) PO Q4H PRN albuterol sulfate 90 mcg/actuation (ProAir HFA) 2 puffs PO Q4-6H PRN cetirizine 10 mg PO DAILY PRN cholecalciferol (vitamin D3) 125 mcg PO DAILY clotrimazole 1% appl topical DAILY docosanol 10% (Abreva) 1 appl topical TID escitalopram oxalate mg PO ferrous gluconate 324 mg PO DAILY fluticasone propionate 50 mcg/actuation (Flonase Allergy Relief) 1 spray intranasal DAILY 30 days furosemide 20 mg PO DAILY PRN [hinge brace HEAVY DUTY] hydroxychloroquine (Plaquenil) 200 mg PO BID leflunomide 10 mg PO DAILY levothyroxine 25 mcg PO DAILY 90 days loratadine 10 mg PO DAILY PRN 90 days Shower Chair HEAVY DUTY trazodone 25 - 50 mg PO BEDTIME triamcinolone acetonide (Nasal Allergy) 2 sprays intranasal DAILY valsartan 160 mg PO DAILY zinc gluconate 30 mg PO DAILY HPI Comments Details: Israel is a very pleasant 38 year old female patient of Dr. Herzog. She has a past medical history of lupus, depression, morbid obesity, vitamin-D deficiency, hypertension, and proteinuria. She presents to the office today for follow-up of her microscopic hematuria. Of note, during last office visit here approximately 6 months ago she underwent an office cystoscopy with Dr. Nathan Thomas that noted no suspicious bladder lesions, bladder wall thickening. Previous workup has included CT urogram09/30 noting urinary tract is within normal limits kidneys negative for masses or calculi. Urine cytology24 negative for malignant cells. In discussion with the patient today she reports to be doing and feeling well. She denies any bothersome urinary issues or concerns. She denies any previous smoking history. 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 In office urinalysis results reviewed with the patient today. 1+ leukocytes, 1+ protein, 1+ microscopic hematuria, and pH 5.5. We discussed and stressed the importance of adequate hydration as well as proteinuria. She reports proteinuria is related to her lupus and has undergone multiple biopsies in the past with Nephrology. When asked she denies urinary urgency, urinary frequency, incontinence, nocturia, hematuria, dysuria, foul smelling urine, changes to urinary stream, flank pain, fever, and or chills. She is happy with her current voiding parameters. [facility] Medical History Hyperparathyroidism Vaginal discharge Physical exam Open wound of thumb Lupus Mild recurrent major depression Morbid obesity with BMI of 40.0-44.9, adult Vitamin D deficiency BMI 38.0-38.9,adult Intestinal malabsorption following gastrectomy Preeclampsia Obesity (BMI 30-39.9) Knee pain Hypertension Depression Proteinuria Autoimmune thyroiditis SLE (systemic lupus erythematosus related syndrome) Surgical History History of foot surgery History of open reduction and internal fixation (ORIF) procedure History of sleeve gastrectomy Status post biopsy of kidney Family History Father Asthma Mother No problems noted. Brother No problems noted. Brother No problems noted. Sister No problems noted. Social History Housing: Apartment Alcohol intake: never Patient Tobacco Use Status: Never used Tobacco e-Cigarette/Vaping Use: Never Used Second Hand Smoke Exposure: No service: No Current occupational status: unemployed Current occupational exposures/hazards: No Cognitive needs: No Hearing needs: No Vision needs: No Female Reproductive History Menstrual Age of Menarche: 11 Review of Systems Eyes Reports no additional complaints ENT Reports no additional complaints Card Reports as per HPI Resp Reports no additional complaints GI Reports no additional complaints Reports as per HPI Musc Reports no additional complaints Neuro Reports no additional complaints Psych Reports as per HPI Aller/Immun Reports as per HPI Physical Exam Const General: cooperative, healthy appearing, comfortable, no acute distress, well developed, alert and awake Nutritional Appearance: overweight Orientation/consciousness: patient oriented x3 Limitations: no limitations HEENT Head: Yes normal to inspection, Yes normocephalic and Yes atraumatic Ears: hearing grossly normal bilaterally Eyes General: appearance normal, both eyes and all related structures Neck Neck: Yes normal visual inspection and Yes trachea midline Chest Chest palpation & inspection: normal inspection of the chest Resp Effort & Inspection: normal respiratory effort and able to speak in complete sentences Cardio Rate: regular rate GI Inspection: Yes normal to inspection General: Yes no CVA tenderness Back/Spine/Pelvis Back: no CVA tenderness Skin General skin exam: no rashes or lesions noted Neuro General: patient oriented x3 Extrem General: Yes normal to inspection Psych Appearance: grossly normal and well kempt Mental Status: mental status grossly normal Speech and movement: Normal speech and movement present and Clear speech present Affect: normal affect Attitude: cooperative Thought process: Normal thought process present Thought content: Normal thought content present Insight: Fair insight present (Psych) Judgement: Fair judgement present (Psych) Results AMB Urinalysis, Automated UA Leukoctes 15 Heriberto/uL Last Edit by [employer] on 03/18/24 09:34 UA Nitrite Last Edit by [employer] on 03/18/24 09:34 UA Urobilinogen 0.2 mg/dL Last Edit by [employer] on 03/18/24 09:34 UA Protein 30 mg/dL Last Edit by [employer] on 03/18/24 09:34 UA pH 5.5 Last Edit by [employer] on 03/18/24 09:34 UA Blood 25 Brian/uL Last Edit by [employer] on 03/18/24 09:34 UA Specific [place] 1.020 Last Edit by [employer] on 03/18/24 09:34 UA Ketone Negative Last Edit by [employer] on 03/18/24 09:34 UA Bilirubin 0 mg/dL Last Edit by [employer] on 03/18/24 09:34 UA Glucose 0 mg/dL Last Edit by [employer] on 03/18/24 09:34 Results Reviewed Results Reviewed: Laboratory Last Values Urine pH (Auto) 5.5 03/18/24 09:08 Specific [place] (Auto) 1.020 03/18/24 09:08 Urine Protein (Auto) 30 mg/dL 03/18/24 09:08 Glucose (UA)(Auto) 0 mg/dL 03/18/24 09:08 Urine Ketones (Auto) Negative 03/18/24 09:08 Urine Blood (Auto) 25 Brian/uL 03/18/24 09:08 Urine Bilirubin (Auto) 0 mg/dL 03/18/24 09:08 Urine Urobilinogen (Auto) 0.2 mg/dL 03/18/24 09:08 Leukocyte Esterase (Auto) 15 Heriberto/uL 03/18/24 09:08 Assessment & Plan Assessment & Plan (1) Microscopic hematuria: Code(s): R31.29 - Other microscopic hematuria Category: Medical Plan In office urinalysis results reviewed with the patient today; as noted above; will send for urine culture and cytology. Patient currently denies any bothersome urinary issues or concerns. She reports to be happy with current voiding parameters. Continue to follow-up with nephrology as planned Discussed at length potential causes of microscopic hematuria. Discussed, educated, and stressed the importance of adequate hydration in relation to overall health and well-being Will continue with surveillance monitoring of microscopic hematuria. Follow-up in 1 year; or sooner with any issues, concerns, and or questions. Orders: Orders AMB Urinalysis Automated Today Z13.9 - Encounter for screening, unspecified Urine Cytology Today R31.29 - Other microscopic hematuria Patient Instructions: The patient had an opportunity to ask questions regarding the treatment plan. All questions were answered. Physical exam, labs, and imaging were discussed and reviewed in detail. As well as risks, benefits, and discussion of treatment choices. No major barriers to understanding were identified. The patient expressed understanding and agreement with the above treatment plan. The patient was made aware they should contact our office by phone for worsening of their current condition, the appearance of new symptoms, or with any questions or concerns. Compliance is encouraged with any medications and follow up testing that is ordered. It is a privilege to be allowed the opportunity to participate in? your urological care.? Again, if you have any questions or concerns If you have any questions or concerns please do not hesitate to contact me. The office is [phone]. This note is constructed using voice recognition software. While every effort has been made to ensure accuracy letterset press set up operator errors may have been included. Yours sincerely, Socorro Hernandez, UPS DRIVER-BC Coding Level of Care Code Est Pt Level 3 (46279) Diagnoses Microscopic hematuria R31.29
== END 2024-03-18 09:14 | disposition home or self-care (01) ==
PROVIDERS: PCP Internal Medicine; Visit Provider Nurse Practitioner Family
DX: R31.29 Other microscopic hematuria (principal); Z13.9 Encounter for screening, unspecified
CPT/HCPCS: 99213

== ENCOUNTER 2024-03-18 08:38 | Outpatient (REF) | payer OTHER, SELFPAY ==
[2024-03-18 16:35] LABS: Urine Cytology See Pathology rpt
== END 2024-03-18 08:39 | disposition home or self-care (01) ==
LOC: HO.LNP 08:38
PROVIDERS: PCP Internal Medicine; Visit Provider Nurse Practitioner Family
DX: R31.29 Other microscopic hematuria (principal)
CPT/HCPCS: 81003; 88112; 99212

== ENCOUNTER 2024-03-25 08:39 | Outpatient (REF) | payer OTHER, SELFPAY | END 2024-03-25 08:40 | disposition home or self-care (01) | LOC: HO.LNP 08:39 | PROVIDERS: PCP Internal Medicine; Visit Provider Obstetrics & Gynecology | DX: Z01.419 Encounter for gynecological examination (general) (routine) without abnormal findings (principal) | CPT/HCPCS: 99396 ==

== ENCOUNTER 2024-03-25 08:39 | Outpatient (AMB) | payer OTHER, SELFPAY ==
[2024-03-25 08:51] VITALS: BP 110/74; BMI 45.5
--- NOTE | 2024-03-25 08:51 | MHC.OFFVIS ---
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 No complaints. Last Pap/HPV was negative in 01/28 Last Mammogram was BI-RADS 1 in 01/30 [facility] Medical History Hyperparathyroidism Vaginal discharge Physical exam Open wound of thumb Lupus Mild recurrent major depression Morbid obesity with BMI of 40.0-44.9, adult Vitamin D deficiency BMI 38.0-38.9,adult Intestinal malabsorption following gastrectomy Preeclampsia Obesity (BMI 30-39.9) Knee pain Hypertension Depression Proteinuria Autoimmune thyroiditis SLE (systemic lupus erythematosus related syndrome) Surgical History History of foot surgery History of open reduction and internal fixation (ORIF) procedure History of sleeve gastrectomy Status post biopsy of kidney Family History Father Asthma Mother No problems noted. Brother No problems noted. Brother No problems noted. Sister No problems noted. Social History Housing: Apartment Alcohol intake: never Patient Tobacco Use Status: Never used Tobacco e-Cigarette/Vaping Use: Never Used Second Hand Smoke Exposure: No service: No Current occupational status: unemployed Current occupational exposures/hazards: No Cognitive needs: No Hearing needs: No Vision needs: No Female Reproductive History Menstrual Age of Menarche: 11 Total pregnancies: 1 Full term: 1 Number of Living Children: 1 Ab spontaneous: 1 Multiple births: 1 Date of last pap smear: 01/21/22 Date of Mammogram: 01/30/24 Review of Systems Const All systems reviewed & are unremarkable except as noted in HPI and below Card Reports as per HPI Resp Reports as per HPI GI Reports as per HPI and Reports no additional complaints Reports as per HPI Physical Exam Vital Signs: Last Vital Signs BP 110/74 03/25/24 08:51 BMI result Body Mass Index 45.5 Const General: cooperative, healthy appearing and comfortable Chest Chest palpation & inspection: normal inspection of the chest and normal palpation of entire chest wall Breast/axilla inspection: normal inspection of the breasts and normal inspection of the axillae Breast/axilla palpation: normal palpation of the breasts, normal palpation of the axillae and no axillary lymphadenopathy Resp Effort & Inspection: normal respiratory effort Auscultation: clear to auscultation bilaterally Percussion: percussion normal Cardio Palpation: normal PMI Rate: regular rate Rhythm: regular rhythm Heart sounds: no murmurs and no rubs Peripheral pulses: Peripheral pulses 2+ throughout GI Inspection: Yes normal to inspection Palpation (GI): Soft to palpation, nontender, no guarding, not rigid and No hepatosplenomegaly present Percussion: Yes normal to percussion Auscultation: normal bowel sounds Rectal Exam - Female: deferred General: Yes bladder normal to palpation External Female Exam: No lesion Speculum Exam - Vagina: normal appearance of the vagina, normal palpation, normal vaginal discharge and not erythematous Speculum Exam - Cervix: normal appearance of the cervix and normal palpation Bimanual exam- vagina & uterus: normal bimanual exam, normal palpation, uterine size normal, bladder normal to palpation, consistency normal and normal palpation Bimanual Exam- Adnexa, other: normal adnexae, no masses and no tenderness Assessment & Plan Assessment & Plan (1) Well woman exam: Code(s): Z01.419 - Encounter for gynecological examination (general) (routine) without abnormal findings Category: Medical Plan: Cotesting not indicated this year. Instructions given the patient to schedule next screening Mammogram in 01/31. Counseled the patient about the recommended dietary allowance of 1000 mg of Calcium & 600 IU of vitamin D. The patient was instructed to perform monthly self-breast exams and to schedule an annual exam in a year; All questions answered and the patient verbalized understanding. Instructed the patient to schedule annual exam in a year Coding Level of Care Code Est Pt Prev Care 40-64y(92832) Diagnoses Well woman exam Z01.419
== END 2024-03-25 09:14 | disposition home or self-care (01) ==
LOC: HO.HWS 08:39
PROVIDERS: PCP Internal Medicine; Visit Provider Obstetrics & Gynecology
DX: Z01.419 Encounter for gynecological examination (general) (routine) without abnormal findings (principal)
CPT/HCPCS: 99396

== ENCOUNTER 2024-03-25 09:19 | Outpatient (REF) | payer OTHER, SELFPAY ==
[2024-03-25 11:35] LABS: CT PCR NOT DETECTED (Not Detect.); NG PCR NOT DETECTED (Not Detect.)
[2024-03-25 13:37] LABS: HBsAGNum1 0.32 S/CO (0.00-0.99); HIV AB/AG Nonreactive (Nonreactive); HIV Num 1 0.04 S/CO (0.00-0.99); Hepatitis B Surface Antigen Negative (Negative); ~HepC Num1 0.37 S/CO (0.00-0.79); ~Hepatitis C Antibody Nonreactive (Nonreactive)
[2024-03-25 13:44] LABS: Syphilis Screen Nonreactive (Nonreactive)
[2024-03-26 11:06] LABS: Bacterial Vaginosis PCR NEGATIVE (Negative); Candida Group PCR DETECTED (Not Detect); Candida glab krusei PCR NOT DETECTED (Not Detect); Trichomonas vaginalis PCR NOT DETECTED (Not Detect)
== END 2024-03-25 09:20 | disposition home or self-care (01) ==
LOC: HO.LAB 09:19
PROVIDERS: PCP Internal Medicine; Visit Provider Obstetrics & Gynecology
DX: A64 Unspecified sexually transmitted disease (principal); Z20.2 Contact with and (suspected) exposure to infections with a predominantly sexual mode of transmission
CPT/HCPCS: 0352U; 86780; 86803; 87340; 87389; 87491; 87591

== ENCOUNTER 2024-04-28 10:47 | Emergency (ER) | payer OTHER, SELFPAY ==
--- NOTE | ~2024-04-28 | XR_ITS ---
EXAMINATION: XR CHEST CLINICAL INFORMATION: Cough. COMPARISON: Chest radiograph 11/22/2017. TECHNIQUE: 2 views of the chest were obtained. FINDINGS: Normal appearance of the cardiomediastinal silhouette. Low lung volumes. No focal consolidation, pleural effusion or pneumothorax. Again noted similar postsurgical changes in the upper abdomen. No acute osseous findings. XR/XR chest 2V IMPRESSION: Low lung volumes. No focal consolidation, pleural effusion or pneumothorax. Electronically signed by: Yu Caban MD 04/28/2024 12:11 PM EDT
[2024-04-28 10:55] VITALS: BP 143/77; PULSE 87; RESP 18; TEMP 36.6; O2SAT 96; BMI 45.7
--- NOTE | 2024-04-28 11:31 | ED_ITS ---
HPI - URI/Sore Throat General Chief Complaint: Upper Respiratory Symptoms Stated Complaint: Body pain/Headache/Cough Time Seen by Provider: 04/28/24 11:14 Source: patient Mode of arrival: ambulatory Limitations: no limitations History of Present Illness ED Provider: Keiko Smith PA-C HPI Narrative: 38 yo female with history of asthma, CKD, hypothyroidism, gastrectomy, HTN, SLE (systemic lupus erythematosus) presents with 1x week productive cough (yellow sputum) and general achy, malaise. Denies N/V/D or fevers. Reports this am stool was looser than normal but only x 1 BM. Denies CP, however states had some periodic chest tightness when coughing a lot. Reports left sided ear pain, itchy/scratchy throat- has been clearing her throat in order to scratch it , denies sore throat. Reports intermittent headaches, has been treating symptoms mainly at night, including using her OTC allergy meds. Is present with her 3 year old child, who she reports would be her only sick contact she could think of, as she too has a cough and attends daycare on a daily basis. MD elicited complaint: cough Pertinent past history: asthma and seasonal allergies Onset (ago): day(s) Consistency: intermittent Description of mucous: yellow Context: sick contacts Treatments prior to arrival: none Related Data Home Medications ?Medication ?Instructions ?Recorded ?Confirmed trazodone 50 mg tablet 25 - 50 mg PO BEDTIME 01/20/22 01/01/24 furosemide 20 mg tablet 20 mg PO DAILY PRN edema 04/22/22 01/01/24 escitalopram oxalate 10 mg tablet mg PO 02/06/23 01/01/24 valsartan 160 mg tablet 160 mg PO DAILY 02/06/23 01/01/24 clotrimazole 1 % topical cream appl topical DAILY 04/10/23 01/01/24 leflunomide 10 mg tablet 10 mg PO DAILY 06/28/23 01/01/24 Previous Rx's ?Medication ?Instructions ?Recorded hydroxychloroquine 200 mg tablet 200 mg PO BID #60 tabs 10/29/20 (Plaquenil) fluticasone propionate 50 1 spray intranasal DAILY 30 days 01/21/21 mcg/actuation nasal #150 mL spray,suspension (Flonase Allergy Relief) albuterol sulfate 90 mcg/actuation 2 puff PO Q4-6H PRN for wheezing 02/16/21 aerosol inhaler (ProAir HFA) #8.5 grams acetaminophen 325 mg capsule 650 mg (2 x 325 mg) PO Q4H PRN 07/02/21 (Tylenol) pain #30 caps Shower Chair #1 ea 11/01/22 hinge brace #1 ea 11/01/22 cetirizine 10 mg tablet 10 mg PO DAILY PRN allergy 04/15/23 symptoms #30 tabs triamcinolone acetonide 55 mcg 2 spray intranasal DAILY #16.9 mL 04/15/23 nasal spray aerosol (Nasal Allergy) docosanol 10 % topical cream 1 appl topical TID #2 grams 06/16/23 (Abreva) zinc gluconate 30 mg tablet 30 mg PO DAILY #90 tabs 06/20/23 cholecalciferol (vitamin D3) 125 125 mcg PO DAILY #90 caps 06/27/23 mcg (5,000 unit) capsule ferrous gluconate 324 mg (37.5 mg 324 mg PO DAILY #90 tabs 12/03/23 iron) tablet loratadine 10 mg tablet 10 mg PO DAILY PRN allergic 02/29/24 symptoms 90 days #90 tabs levothyroxine 25 mcg tablet 25 mcg PO DAILY 90 days #90 tabs 03/27/24 ofloxacin 0.3 % ear drops 10 drp otic (ears) DAILY 7 days 04/28/24 #10 mL Allergies Allergy/AdvReac Type Severity Reaction Status Date / Time metformin [METFORMIN] Allergy Intermediate INFLAMMED Verified 04/28/24 10:57 GUMS, red gums, redness of gums doxycycline AdvReac Intermediate Itching Verified 04/28/24 10:57 Review of Systems Review of Systems: Yes all other systems are reviewed and are negative [facility] Past Medical History Medical History Hyperparathyroidism Vaginal discharge Physical exam Open wound of thumb Lupus Mild recurrent major depression Morbid obesity with BMI of 40.0-44.9, adult Vitamin D deficiency BMI 38.0-38.9,adult Intestinal malabsorption following gastrectomy Preeclampsia Obesity (BMI 30-39.9) Knee pain Hypertension Depression Proteinuria Autoimmune thyroiditis SLE (systemic lupus erythematosus related syndrome) Surgical History History of foot surgery History of open reduction and internal fixation (ORIF) procedure History of sleeve gastrectomy Status post biopsy of kidney Family History Family History Father Asthma Mother No problems noted. Brother No problems noted. Brother No problems noted. Sister No problems noted. Social History Social History Housing: Apartment Alcohol intake: never Patient Tobacco Use Status: Never used Tobacco e-Cigarette/Vaping Use: Never Used Second Hand Smoke Exposure: No Advance Directives: No Advance Directives Information Provided: No Do you have a plan to hurt others: No Plan service: No Current occupational status: unemployed Current occupational exposures/hazards: No Cognitive needs: No Hearing needs: No Vision needs: No Physical Exam Vital Signs: Vital Signs: Last Vital Signs Temp 97.8 F 04/28/24 12:50 Pulse 87 04/28/24 12:50 Resp 18 04/28/24 12:50 BP 143/77 H 04/28/24 12:50 Pulse Ox 96 04/28/24 12:50 O2 Del Method Room Air 04/28/24 12:50 BMI result Body Mass Index 45.7 Appearance: Alert. Oriented X3. No acute distress. Head: normocephalic, atraumatic. Eyes: Pupils equal, round and reactive to light. ENT: Pharynx normal. No tonsillar swelling or exudate. Left EAC is mildly erythematous with normal TMs bilaterally. Neck: Normal inspection. Neck supple. CVS: Normal heart rate and rhythm. Pulses normal. Respiratory: No respiratory distress. Breath sounds normal. Abdomen: Obese, Soft and nontender. +BS x4 Skin: Skin warm and dry. Normal skin color. Normal skin turgor. No rashes. Extremities: No lower extremity edema. No joint swelling. Neuro/psych: Oriented X 3. No motor deficit. No sensory deficit. CN II-XII intact. Normal speech and cognition. Medications Administered Discontinued Medications Generic Name Dose Route Start Last Admin Trade Name Freq PRN Reason Stop Dose Admin Guaifenesin/Codeine Phosphate 10 ml 04/28/24 12:14 04/28/24 12:26 Guaifen/Codeine Sf 200/20/10ml 10 Ml Liquid PO 04/28/24 12:15 10 ml NOW STA Administration Medical Decision Making Medical Decision Making [facility] Narrative: 38 yo female with history of asthma, CKD, hypothyroidism, gastrectomy, HTN, SLE (systemic lupus erythematosus) presents with 1x week productive cough (yellow sputum) and general achy, malaise feeling. On assessment is not ill or toxic appearing, not SOB, speaking in full sentences. Intermittent scantly productive cough, yellow sputum. Lung sounds are CTA. Is not tachypneic or tachycardic. CXR ordered, and completed negative for any acute findings. No wheezing. Viral swabs negative. Exam with mild otitis externa. most likely viral etiology of cough. stable for d/c home with supportive care. Differential Diagnosis Differential Diagnoses: The differential diagnosis associated with the presentation includes COVID, FLU, URI, asthma exacerbation, otitis externa, otitis media, pneumonia, bronchitis Lab Data [facility] Lab Attestation statement: I reviewed the patient's lab results. Labs: Lab Results 04/28/24 Range/Units 11:04 Influenza Type A (PCR) NEGATIVE (Negative) Influenza Type B (PCR) NEGATIVE (Negative) RSV RNA Qual (PCR) NEGATIVE (Negative) SARS-CoV-2 RNA (RT-PCR) NEGATIVE (Negative) Independent Interpretation I performed an independent interpretation of an: Plain X-Ray Interpretation: cxr without focal infiltrate, low lung volumes Radiology Impression Discussion of test interpretation with radiology: I have reviewed the radiologist's reading. Radiologist Impression: XR CHEST CLINICAL INFORMATION: Cough. COMPARISON: Chest radiograph 11/22/2017. TECHNIQUE: 2 views of the chest were obtained. FINDINGS: Normal appearance of the cardiomediastinal silhouette. Low lung volumes. No focal consolidation, pleural effusion or pneumothorax. Again noted similar postsurgical changes in the upper abdomen. No acute osseous findings. XR/XR chest 2V IMPRESSION: Low lung volumes. No focal consolidation, pleural effusion or pneumothorax. External Record Review External record reviewed: Prior outpatient labs and Prior outpatient radiology Prescription Management I considered prescription management with: Antiviral and Antibiotic Chronic Conditions Patient?s care impacted by: Other (ckd, obesity) Critical Care Time Critical Care Time Critical Care Time: No Discharge Plan Discharge Clinical Impression: Viral infection Otitis externa Qualifiers: Otitis externa type: unspecified type Chronicity: acute Laterality: left Qualified Code(s): H60.502 - Unspecified acute noninfective otitis externa, left ear Patient Disposition: Home, Self-Care Instructions: Otitis Externa (ED), Viral Syndrome (ED) Additional Instructions: Your chest x-ray today did not show any evidence of pneumonia. You tested negative for COVID, flu, RSV. Your cough and upper respiratory symptoms most likely due to another viral cause. Treatment is rest and supportive care. Take [id number] cough medication as needed. You have a mild infection of the left ear canal, use the prescribed ear drops once a day for the next week. Do not get water in the ear, put a cotton ball in your ear when you shower. Follow-up with your doctor If you develop new or worsening symptoms call 911 or come back to the ER for further evaluation. Prescriptions: New ofloxacin 0.3 % drops 10 drp otic (ears) DAILY 7 Days Qty: 10 0RF No Action albuterol sulfate [ProAir HFA] 90 mcg/actuation HFA aerosol inhaler 2 puff PO Q4-6H PRN (Reason: for wheezing) Qty: 8.5 0RF (DME) hinge brace See Rx Instructions .Route .MEDSUPPLY Qty: 1 0RF Rx Instructions: HEAVY DUTY (DME) Shower Chair Misc See Rx Instructions .Route Qty: 1 0RF Rx Instructions: HEAVY DUTY zinc gluconate 30 mg tablet 30 mg PO DAILY Qty: 90 3RF cholecalciferol (vitamin D3) 125 mcg (5,000 unit) capsule 125 mcg PO DAILY Qty: 90 3RF loratadine 10 mg tablet 10 mg PO DAILY PRN (Reason: allergic symptoms) 90 Days Qty: 90 0RF levothyroxine 25 mcg tablet 25 mcg PO DAILY 90 Days Qty: 90 0RF acetaminophen [Tylenol] 325 mg capsule 650 mg PO Q4H PRN (Reason: pain) Qty: 30 0RF triamcinolone acetonide [Nasal Allergy] 55 mcg aerosol,spray 2 spray intranasal DAILY Qty: 16.9 0RF Rx Instructions: administer into each nostril cetirizine 10 mg tablet 10 mg PO DAILY PRN (Reason: allergy symptoms) Qty: 30 0RF ferrous gluconate 324 mg (37.5 mg iron) tablet 324 mg PO DAILY Qty: 90 1RF fluticasone propionate [Flonase Allergy Relief] 50 mcg/actuation spray,suspension 1 spray intranasal DAILY 30 Days Qty: 150 0RF Rx Instructions: administer into each nostril docosanol [Abreva] 10 % cream 1 appl topical TID Qty: 2 0RF leflunomide 10 mg tablet 10 mg PO DAILY hydroxychloroquine [Plaquenil] 200 mg tablet 200 mg PO BID Qty: 60 3RF trazodone 50 mg tablet 25 - 50 mg PO BEDTIME furosemide 20 mg tablet 20 mg PO DAILY PRN (Reason: edema) escitalopram oxalate 10 mg tablet PO valsartan 160 mg tablet 160 mg PO DAILY clotrimazole 1 % cream topical DAILY Referrals: Delores Mancia MD [Primary Care Provider] - Interventions: ED Discharge Assessment Last Done: 04/28/24 12:50 Discharge Date/Time: 04/28/24 12:51 Print Language: [place]ar[place]uan
[2024-04-28 11:56] LABS: Influenza A PCR NEGATIVE (Negative); Influenza B PCR NEGATIVE (Negative); Resp Syncy Virus RNA Qual PCR NEGATIVE (Negative); SARS COV2 PCR INHOUSE NEGATIVE (Negative)
[2024-04-28] MEDS: guaiFEN/Codeine SF 200/20/10ML 10 ML LIQUID PO (12:26)
[2024-04-28 12:50] VITALS: BP 143/77; PULSE 87; RESP 18; TEMP 36.6; O2SAT 96
== END 2024-04-28 12:51 | disposition home or self-care (01) ==
PROVIDERS: Emergency Provider Emergency Medicine; PCP Internal Medicine
DX: H60.502 Unspecified acute noninfective otitis externa, left ear (principal); B34.9 Viral infection, unspecified; M79.10 Myalgia, unspecified site; R05.9 Cough, unspecified; I10 Essential (primary) hypertension; Z03.818 Encounter for observation for suspected exposure to other biological agents ruled out
CPT/HCPCS: 0241U; 71046; 99283

== ENCOUNTER 2024-05-06 08:23 | Outpatient (AMB) | payer OTHER, SELFPAY ==
[2024-05-06 08:36] VITALS: BP 112/76; PULSE 86; TEMP 36.8; O2SAT 98; BMI 45.7
--- NOTE | 2024-05-06 08:36 | MHC.OFFWIV ---
Intake Vital Signs 05/06/24 08:36 Height 5 ft 4 in Weight 266 lb BMI 45.7 BP 112/76 Blood Pressure Location Lt brachial Position Sitting Pulse 86 Pulse Source Pulse Oximeter Temp 98.2 F Temp Source Oral Pulse Oximetry (%) 98 Oxygen Delivery Method Room Air Intake Visit Reasons: EP-b/l ear pain, cold symptoms Intake Note: Patient here f[or bilat ear pain, cough, chest tightness that has been going on for about 2 weeks. Patient Tobacco Use Status: Never used Tobacco Allergies metformin [METFORMIN] Allergy (Intermediate, Verified 05/06/24 08:39) INFLAMMED GUMS, red gums, redness of gums doxycycline Adverse Reaction (Intermediate, Verified 05/06/24 08:39) Itching Do you need a note to return to daycare/school/sports/work: No HPI EP-b/l ear pain, cold symptoms HPI Details This note is constructed using voice recognition software. While every effort has been made to ensure accuracy, medical imaging director errors may have been included. The patient is a 38 year old female who presents to the clinic today with cough, wheeze for the last 2 weeks. She notes that she was recently seen in the emergency room, and evaluated, treated for otitis externa. She notes that she has been tested for COVID and flu and has been negative. She denies fever, chills, dyspnea. She does report that she had some mild sinus congestion, but nothing that she has had to do anything about. The wheezing has been intermittent the entire time, and does not seem to get better. She notes that when she was a child she was diagnosed with asthma but she has not treated it in many years. She has been intermittently prescribed an albuterol inhaler when she is having URI symptoms, but the inhaler that she has a home is quite . [facility] Medical History Hyperparathyroidism Vaginal discharge Physical exam Open wound of thumb Lupus Mild recurrent major depression Morbid obesity with BMI of 40.0-44.9, adult Vitamin D deficiency BMI 38.0-38.9,adult Intestinal malabsorption following gastrectomy Preeclampsia Obesity (BMI 30-39.9) Knee pain Hypertension Depression Proteinuria Autoimmune thyroiditis SLE (systemic lupus erythematosus related syndrome) Surgical History History of foot surgery History of open reduction and internal fixation (ORIF) procedure History of sleeve gastrectomy Status post biopsy of kidney Family History Father Asthma Mother No problems noted. Brother No problems noted. Brother No problems noted. Sister No problems noted. Social History Housing: Apartment Alcohol intake: never Patient Tobacco Use Status: Never used Tobacco e-Cigarette/Vaping Use: Never Used Second Hand Smoke Exposure: No service: No Current occupational status: unemployed Current occupational exposures/hazards: No Cognitive needs: No Hearing needs: No Vision needs: No Female Reproductive History Menstrual Age of Menarche: 11 Review of Systems Const All systems reviewed & are unremarkable except as noted in HPI and below Physical Exam Vital Signs: Last Vital Signs Temp 98.2 F 05/06/24 08:36 Pulse 86 05/06/24 08:36 BP 112/76 05/06/24 08:36 Pulse Ox 98 05/06/24 08:36 Oxygen Delivery Method Room Air 05/06/24 08:36 BMI result Body Mass Index 45.7 Const General: cooperative, healthy appearing, comfortable, no acute distress and well developed Orientation/consciousness: patient oriented x3 Limitations: no limitations HEENT Head: Yes normal to inspection Ears: hearing grossly normal bilaterally General nose exam: Normal external nose present Face and sinus: Yes normal facial exam Eyes General: appearance normal, both eyes and all related structures Neck Neck: Yes normal visual inspection and Yes full ROM Resp Effort & Inspection: normal respiratory effort and able to speak in complete sentences Auscultation: wheezes right upper Cardio Rate: regular rate Rhythm: regular rhythm Heart sounds: normal S1 and S2 Skin General skin exam: no rashes or lesions noted Neuro General: patient oriented x3 Assessment & Plan Assessment & Plan (1) Asthma exacerbation: Code(s): J45.901 - Unspecified asthma with (acute) exacerbation Qualifiers: Asthma severity: mild Asthma persistence: intermittent Qualified Code(s): J45.21 - Mild intermittent asthma with (acute) exacerbation Plan: Previous note, labs testing reviewed from emergency room visit. Likely exacerbated from recent URI. We will treat with prednisone burst, as well as albuterol inhaler as needed. Reviewed proper use of albuterol inhaler. Advised patient to follow up with worsening symptoms, failure to resolve. Plan See above for full details and plan. Medications: New prednisone 40 mg (2 x 20 mg) PO DAILY 5 days 10 tabs 0RF albuterol sulfate 90 mcg/actuation 1 inh inhalation Q4-6H PRN 1 ea 0RF shortness of breath or wheezing Coding Level of Care Code Est Pt Level 4 (13838) Diagnoses Mild intermittent asthma with exacerbation J45.21 Asthma severity: mild Asthma persistence: intermittent
== END 2024-05-06 09:06 | disposition home or self-care (01) ==
PROVIDERS: PCP Internal Medicine; Visit Provider Registered Nurse
DX: J45.21 Mild intermittent asthma with (acute) exacerbation (principal)

== ENCOUNTER → 2024-05-06 08:23 | Outpatient (BNVA) | payer OTHER, SELFPAY | PROVIDERS: PCP Internal Medicine; Visit Provider Registered Nurse | DX: J45.21 Mild intermittent asthma with (acute) exacerbation (principal) | CPT/HCPCS: 99212 ==

== ENCOUNTER 2024-05-22 07:52 | Outpatient (AMB) | payer OTHER, SELFPAY ==
[2024-05-22 07:56] VITALS: BP 110/84; PULSE 58; O2SAT 93
--- NOTE | 2024-05-22 07:56 | A.OFFVIS_ITS ---
Vital Signs 05/22/24 07:56 Weight 264 lb 15.93 oz BP 110/84 Blood Pressure Location Lt brachial Position Sitting Pulse 58 Pulse Source Pulse Oximeter Pulse Oximetry (%) 93 Oxygen Delivery Method Room Air Intake Visit Reasons: RA//RECORDS RECEIVED Intake Note: Patient present today for RA. [employer] Principal Required: No Accompanied by: Self / Same As Patient Allergies metformin [METFORMIN] Allergy (Intermediate, Verified 05/22/24 08:01) INFLAMMED GUMS, red gums, redness of gums doxycycline Adverse Reaction (Intermediate, Verified 05/22/24 08:01) Itching Medication List - Last Reconciled 05/22/24 by Kristopher Cardozo MD acetaminophen (Tylenol) 650 mg (2 x 325 mg) PO Q4H PRN albuterol sulfate 90 mcg/actuation (ProAir HFA) 2 puffs PO Q4-6H PRN albuterol sulfate 90 mcg/actuation 1 inh inhalation Q4-6H PRN cetirizine 10 mg PO DAILY PRN cholecalciferol (vitamin D3) 125 mcg PO DAILY clotrimazole 1% appl topical DAILY docosanol 10% (Abreva) 1 appl topical TID escitalopram oxalate mg PO fluticasone propionate 50 mcg/actuation (Flonase Allergy Relief) 1 spray intranasal DAILY 30 days furosemide 20 mg PO DAILY PRN [hinge brace HEAVY DUTY] hydroxychloroquine (Plaquenil) 200 mg PO BID leflunomide 10 mg PO DAILY levothyroxine 25 mcg PO DAILY 90 days loratadine 10 mg PO DAILY PRN 90 days ofloxacin 0.3% 10 drps otic (ears) DAILY 7 days Shower Chair HEAVY DUTY trazodone 25 - 50 mg PO BEDTIME triamcinolone acetonide (Nasal Allergy) 2 sprays intranasal DAILY valsartan 160 mg PO DAILY HPI Comments Details: Increase joint and muscle pains after stopping HCQ for 1.5 weeks. Back on meds for the last few months. HCQ is causing explosive wattery diarrhea 30 minutes after taking HCQ. Then she has another episode 20 minutes after then it resovles. Occurs daily after taking HCQ. Rash on left thumb attributed to getting nails done. plan for bariatric surgery in 3 weeks. She is walking 20min to 40min a day with her sister. He continues to have knee pain and notes limited hip ROM [facility] Medical History (Updated 05/22/24 @ 10:00 by Kristopher Cardozo MD) Osteoarthritis of knees, bilateral Hyperparathyroidism Vaginal discharge Physical exam Open wound of thumb Lupus Mild recurrent major depression Morbid obesity with BMI of 40.0-44.9, adult Vitamin D deficiency BMI 38.0-38.9,adult Intestinal malabsorption following gastrectomy Preeclampsia Obesity (BMI 30-39.9) Knee pain Hypertension Depression Proteinuria Autoimmune thyroiditis SLE (systemic lupus erythematosus related syndrome) Surgical History History of foot surgery History of open reduction and internal fixation (ORIF) procedure History of sleeve gastrectomy Status post biopsy of kidney Family History Father Asthma Mother No problems noted. Brother No problems noted. Brother No problems noted. Sister No problems noted. Social History Housing: Apartment Alcohol intake: never Patient Tobacco Use Status: Never used Tobacco e-Cigarette/Vaping Use: Never Used Second Hand Smoke Exposure: No service: No Current occupational status: unemployed Current occupational exposures/hazards: No Cognitive needs: No Hearing needs: No Vision needs: No Female Reproductive History Menstrual Age of Menarche: 11 Review of Systems Const All systems reviewed & are unremarkable except as noted in HPI and below Physical Exam Vital Signs: Last Vital Signs Pulse 58 05/22/24 07:56 BP 110/84 05/22/24 07:56 Pulse Ox 93 05/22/24 07:56 Oxygen Delivery Method Room Air 05/22/24 07:56 Const General: comfortable Resp Effort & Inspection: normal respiratory effort and able to speak in complete sentences Auscultation: clear to auscultation bilaterally Cardio Rate: regular rate Skin Other: erythema noted left thumb Extrem Other: Tender MCPs, PIPs and DIPs Tender elbows and shoulders No synovitis Diffuse allodynia ROM knees and bilateral hips are limited Assessment & Plan Assessment & Plan (1) SLE (systemic lupus erythematosus related syndrome): Comment: Improved polyarthralgia since being back on DMARD regimen. She continues to have explosive watery diarrhea after HCQ administration. Code(s): M32.9 - Systemic lupus erythematosus, unspecified Category: Medical Plan: Will obtain labs for disease and drug monitoring this visit. Will split dose of HCQ 400mg daily to 200mg BID. Eye exam OCT and VF ok 09/2023 per note reviewed from [facility]. Plan to repeat eye exam in July 2024. Eye exam for HCQ due yearly. If diarrhea does not improve with split HCQ dose, will obtain PA for Brand HCQ. Patient will call in a month for update. Continue leflunomide 10mg daily. She will need 3 month refill after lab results are reviewed. (2) Lupus: Code(s): M32.9 - Systemic lupus erythematosus, unspecified Category: Medical (3) Proteinuria: Comment: Follows with nephrology. Code(s): R80.9 - Proteinuria, unspecified Category: Medical Qualifiers: Proteinuria type: unspecified Qualified Code(s): R80.9 - Proteinuria, unspecified Plan: She will have follow-up in September 2024 with nephrology. Labs for urine studies ordered to assess lupus activity. Will take into consideration underlying kidney disease. (4) Osteoarthritis of knees, bilateral: Comment: Pain is not controlled. Plans for bariatric surgery in 3 weeks. Weight loss should help reduce pain. Tylenol is ineffective. Hx CKD. Contraindication to NSAIDs. Will monitor for improvement. Code(s): M17.0 - Bilateral primary osteoarthritis of knee Category: Medical Qualifiers: Osteoarthritis type: primary Qualified Code(s): M17.0 - Bilateral primary osteoarthritis of knee Plan: Encouraged continued exercise plan AAOS knee and hip strengthening exercises printed for patient Consider hyaluronic acid injections Plan . Orders: Orders Complete Blood Count Auto Diff Today M32.9 - Systemic lupus erythematosus, unspecified Liver Panel Today M32.9 - Systemic lupus erythematosus, unspecified Erythrocyte Sedimentation Rate Today M32.9 - Systemic lupus erythematosus, unspecified C Reactive Protein Today M32.9 - Systemic lupus erythematosus, unspecified UA w Microscopic Today M32.9 - Systemic lupus erythematosus, unspecified Protein Creatinine Ratio, Ur Today M32.9 - Systemic lupus erythematosus, unspecified Alanine Aminotransferase Today M32.9 - Systemic lupus erythematosus, unspecified Aspartate Amino Transferase Today M32.9 - Systemic lupus erythematosus, unspecified Creatinine Today M32.9 - Systemic lupus erythematosus, unspecified Anti DNA DS Antibody Today M32.9 - Systemic lupus erythematosus, unspecified Complement C3 Today M32.9 - Systemic lupus erythematosus, unspecified Complement C4 Today M32.9 - Systemic lupus erythematosus, unspecified Coding Level of Care Code Est Pt Level 4 (89559) Complex EM visit Add On G2211 Diagnoses SLE (systemic lupus erythematosus related syndrome) M32.9 Lupus M32.9 Proteinuria, unspecified type R80.9 Proteinuria type: unspecified Primary osteoarthritis of both knees M17.0 Osteoarthritis type: primary
== END 2024-05-22 08:51 | disposition home or self-care (01) ==
PROVIDERS: PCP Internal Medicine; Visit Provider Internal Medicine Rheumatology
DX: M32.9 Systemic lupus erythematosus, unspecified (principal); R80.9 Proteinuria, unspecified; M17.0 Bilateral primary osteoarthritis of knee
CPT/HCPCS: 99214; G2211

== ENCOUNTER → 2024-05-22 07:52 | Outpatient (BNVA) | payer OTHER, SELFPAY | PROVIDERS: PCP Internal Medicine; Visit Provider Internal Medicine Rheumatology | DX: M32.9 Systemic lupus erythematosus, unspecified (principal); R80.9 Proteinuria, unspecified; M17.0 Bilateral primary osteoarthritis of knee | CPT/HCPCS: 99212 ==

== ENCOUNTER 2024-05-28 08:30 | Outpatient (REF) | payer OTHER, SELFPAY ==
[2024-05-28 09:01] LABS: MANUAL DIFF FLAG NO
[2024-05-28 09:25] LABS: Appearance Urine Clear; Color Urine Yellow; Glucose Urine UA Negative (Negative); Leukocyte Esterase Urine Small (1+) (Negative); Nitrite Urine Negative (Negative); PH 5.5 (5.0-9.0); UMIC TRIGGER UA YES; Urine Blood Trace (Negative); Urine Ketones Negative (Negative); Urine Protein 30 (1+) mg/dL (Neg-Trace)
[2024-05-28 09:29] LABS: Bacteria Urine None Seen (None Seen); Hyaline Casts Urine 0-2 /LPF (0-2); RBC Urine 0-2 /HPF (0-2); WBC Urine 21-50 /HPF (0-5)
[2024-05-28 09:31] LABS: Basophils Absolute Auto 0.1 X10*3/uL (0.0-0.2); Eosinophils Absolute Auto 0.1 X10*3/uL (0.0-0.4); Eosinophils Percent Auto 2.7 % (0-4); Imm Gran Abs Auto 0.02 X10*3/uL (0.00-0.03); Imm Gran Pct Auto 0.4 % (0.0-0.4); Lymphocytes Absolute Auto 0.9 X10*3/uL (1.2-4.9); Lymphocytes Percent Auto 17.2 % (20-40); Mean Corpuscular HGB Conc 33.1 g/dl (31.0-35.0); Mean Corpuscular Hemoglobin 29.4 pg (27.0-33.0); Mean Corpuscular Volume 88.8 fL (80.0-98.0); Mean Platelet Volume 11.3 fL (9.4-12.3); Monocytes Absolute Auto 0.4 X10*3/uL (0.1-1.2); Monocytes Percent Auto 7.2 % (2-11); Neutrophils Absolute Auto 3.7 x10*3/uL (2.0-8.3); Neutrophils Percent Auto 71.5 % (45-73); Platelet Count 176 X10*3/uL (160-400); Red Blood Count 4.73 X10*6/uL (4.20-5.50); Red Cell Distribution Width 13.8 % (11.0-16.0); White Blood Count 5.1 X10*3/uL (4.8-10.8)
[2024-05-28 09:32] LABS: Hemoglobin 13.9 g/dl (12.0-16.0)
[2024-05-28 10:03] LABS: Erythrocyte Sedimentation Rate 11 MM/HR (0-20)
[2024-05-28 10:40] LABS: Alanine Aminotransferase 18 U/L (0-31); Albumin Level 3.4 g/dL (3.5-5.0); Alkaline Phosphatase 95 U/L (39-117); Aspartate Amino Transferase 18 U/L (5-31); Bilirubin Direct 0.1 mg/dL (0.0-0.5); Bilirubin Total 0.3 mg/dL (0.0-1.0); Estimated Glomerular Filt Rate 48; Iron 72 mcg/dL (30-160); Percent Iron Saturation 30 % (15-50); Total Iron Binding Capacity 239 mcg/dL (228-428); Total Protein 6.3 g/dL (6.5-8.0); Unsaturated Iron Binding 167 ug/dL
[2024-05-28 11:03] LABS: Thyroid Stimulating Hormone 3.85 uIU/mL (0.32-4.0); Vitamin D 25-OH Total 26.5 ng/mL (>30)
[2024-05-28 11:14] LABS: Creatinine Urine 66.61 mg/dL; Protein/Creatinine Ratio, Ur 0.66 (<0.2); Total Protein Urine Random 44 mg/dL (<12)
[2024-05-29 20:04] LABS: Anti DNA DS Antibody 1 IU/mL
[2024-05-29 22:39] LABS: Complement C3 80 mg/dL (83-193)
== END 2024-05-28 08:31 | disposition home or self-care (01) ==
LOC: HO.LAB 08:30
PROVIDERS: Absent Provider Internal Medicine; PCP Internal Medicine; Visit Provider Internal Medicine Rheumatology
DX: E03.9 Hypothyroidism, unspecified (principal); D64.9 Anemia, unspecified; E55.9 Vitamin D deficiency, unspecified; M32.9 Systemic lupus erythematosus, unspecified
CPT/HCPCS: 36415; 80076; 81001; 82306; 82565; 82570; 83540; 84156; 84443; 85025; 85652; 86140; 86160; 86225

== ENCOUNTER 2024-06-13 07:35 | Outpatient (REF) | payer OTHER, SELFPAY ==
[2024-06-13 08:58] LABS: Estimated Average Glucose 88 mg/dL; Hemoglobin A1C 94.9227 umol/L; Hemoglobin A1c % 4.7 % (<6.0)
[2024-06-13 09:00] LABS: Alanine Aminotransferase 20 U/L (0-31); Aspartate Amino Transferase 22 U/L (5-31); Cholesterol 145 mg/dL (<200); HDL Cholesterol 37 mg/dL (>40); LDL Cholesterol Calculated 82 mg/dL (<100); Triglycerides 134 mg/dL (<150)
[2024-06-13 17:38] LABS: Bacterial Vaginosis PCR NEGATIVE (Negative); Candida Group PCR NOT DETECTED (Not Detect); Candida glab krusei PCR NOT DETECTED (Not Detect); Trichomonas vaginalis PCR NOT DETECTED (Not Detect)
== END 2024-06-13 07:36 | disposition home or self-care (01) ==
LOC: HO.LAB 07:35
PROVIDERS: Absent Provider Internal Medicine Rheumatology; PCP Internal Medicine; Referring Provider Registered Nurse; Visit Provider Obstetrics & Gynecology
DX: M32.9 Systemic lupus erythematosus, unspecified (principal); Z79.899 Other long term (current) drug therapy; R35.0 Frequency of micturition; N76.0 Acute vaginitis; B96.89 Other specified bacterial agents as the cause of diseases classified elsewhere
CPT/HCPCS: 0352U; 36415; 80061; 83036; 84450; 84460; 87086; 99212

== ENCOUNTER 2024-06-13 08:06 | Outpatient (REF) | payer OTHER, SELFPAY ==
[2024-06-13 09:17] LABS: Syphilis Screen Nonreactive (Nonreactive)
[2024-06-13 09:18] LABS: HBsAGNum1 0.34 S/CO (0.00-0.99); HIV AB/AG Nonreactive (Nonreactive); HIV Num 1 0.07 S/CO (0.00-0.99); Hepatitis B Surface Antigen Negative (Negative); ~HepC Num1 0.41 S/CO (0.00-0.79); ~Hepatitis C Antibody Nonreactive (Nonreactive)
[2024-06-13 18:09] LABS: CT PCR NOT DETECTED (Not Detect.); NG PCR NOT DETECTED (Not Detect.)
== END 2024-06-13 08:07 | disposition home or self-care (01) ==
LOC: HO.LNP 08:06
PROVIDERS: Visit Provider Obstetrics & Gynecology
DX: N76.0 Acute vaginitis (principal); Z79.899 Other long term (current) drug therapy; B96.89 Other specified bacterial agents as the cause of diseases classified elsewhere
CPT/HCPCS: 86780; 86803; 87340; 87389; 87491; 87591

== ENCOUNTER 2024-06-13 08:13 | Outpatient (AMB) | payer OTHER, SELFPAY ==
--- NOTE | 2024-06-13 07:36 | A.OFFVIS_ITS ---
Vital Signs 06/13/24 07:39 Height 5 ft 4 in Weight 264 lb 8.875 oz BMI 45.4 Intake Visit Reasons: vaginal discharge Conservation Technician Required: No Conservation Technician Name: Rhiannon HUTSON Information Interpreted: non-clinical & clinical Medical Device Sales Consultant: Medical Device Sales Consultant Present (Rhiannon HUTSON) Accompanied by: Self / Same As Patient Allergies metformin [METFORMIN] Allergy (Intermediate, Verified 06/13/24 07:39) INFLAMMED GUMS, red gums, redness of gums doxycycline Adverse Reaction (Intermediate, Verified 06/13/24 07:39) Itching HPI Comments Details: The patient is presenting complaining of vaginal discharge associated with foul odor, no other associated symptoms, vaginal itching or any other complaint [facility] Medical History Osteoarthritis of knees, bilateral Hyperparathyroidism Vaginal discharge Physical exam Open wound of thumb Lupus Mild recurrent major depression Morbid obesity with BMI of 40.0-44.9, adult Vitamin D deficiency BMI 38.0-38.9,adult Intestinal malabsorption following gastrectomy Preeclampsia Obesity (BMI 30-39.9) Knee pain Hypertension Depression Proteinuria Autoimmune thyroiditis SLE (systemic lupus erythematosus related syndrome) Surgical History History of foot surgery History of open reduction and internal fixation (ORIF) procedure History of sleeve gastrectomy Status post biopsy of kidney Family History Father Asthma Mother No problems noted. Brother No problems noted. Brother No problems noted. Sister No problems noted. Social History Housing: Apartment Alcohol intake: never Patient Tobacco Use Status: Never used Tobacco e-Cigarette/Vaping Use: Never Used Second Hand Smoke Exposure: No service: No Current occupational status: unemployed Current occupational exposures/hazards: No Cognitive needs: No Hearing needs: No Vision needs: No Female Reproductive History Menstrual Age of Menarche: 11 Review of Systems Const All systems reviewed & are unremarkable except as noted in HPI and below Physical Exam Vital Signs: BMI result Body Mass Index 45.4 General: Yes no CVA tenderness External Female Exam: normal external appearance and normal appearance of the urethra Speculum Exam - Vagina: normal appearance of the vagina, normal palpation, no lesions and no masses Speculum Exam - Cervix: normal appearance of the cervix, normal palpation, no lesions, no masses and nontender Bimanual exam- vagina & uterus: normal bimanual exam, normal palpation, uterine size normal, normal palpation, uterine shape normal, No Cervical tenderness present and non-tender Bimanual Exam- Adnexa, other: normal adnexae Back/Spine/Pelvis Back: no CVA tenderness Assessment & Plan Assessment & Plan (1) Bacterial vaginosis: Code(s): N76.0 - Acute vaginitis; B96.89 - Other specified bacterial agents as the cause of diseases classified elsewhere Category: Medical Plan: GC and chlamydia cultures with BV panel taken. Per CDC recommendation, will screen for STI, HepBs Ag, HIV, RPR, Hep C Ab ordered. Will treat with Flagyl 500 mg p.o. b.i.d. x 7 days, Instructions given to the patient to refrain from sexual activity or to use condoms consistently and correctly during the BV treatment regimen, not to douch, it might increase the risk for relapse, and to call if symptoms persist or recur. Orders: Orders Hepatitis B Surface Antigen Today B96.89 - Other specified bacterial agents as the cause of diseases classified elsewhere, N76.0 - Acute vaginitis HIV Ab/Ag Today 96.89 - Other specified bacterial agents as the cause of diseases classified elsewhere, N76.0 - Acute vaginitis Bacterial Vaginosis Panel Today 96.89 - Other specified bacterial agents as the cause of diseases classified elsewhere, N76.0 - Acute vaginitis, N89.8 - Other specified noninflammatory disorders of vagina CT NG by PCR Today 96.89 - Other specified bacterial agents as the cause of diseases classified elsewhere, N76.0 - Acute vaginitis, N89.8 - Other specified noninflammatory disorders of vagina Syphilis Screen Today 96.89 - Other specified bacterial agents as the cause of diseases classified elsewhere, N76.0 - Acute vaginitis Hepatitis C Antibody Today 96.89 - Other specified bacterial agents as the cause of diseases classified elsewhere, N76.0 - Acute vaginitis Medications: New metronidazole 500 mg PO BID 7 days 14 tabs 0RF Coding Level of Care Code Est Pt Level 3 (53511) Diagnoses Bacterial vaginosis N76.0; B96.89
[2024-06-13 07:39] VITALS: BMI 45.4
--- OUTSIDE RECORDS SUMMARY | 2024-06-18 23:24 | XMS_ITS | Data Portability ---
Author Organization [facility] [address] Address [address] [place] [id number] Assessment No assessment recorded. Plan of Treatment Reminders Order Date Submit Date Provider Last Modified By Organization Details Last Modified Time Details Appointments None recorded. Lab None recorded. Referral None recorded. Procedures None recorded. Surgeries None recorded. Imaging None recorded. Medication Orders mupirocin 2 % topical ointment 2023 024 [facility][id number], [address] [place], [address], 4 18:36:48 cephalexin 500 mg capsule 2023 024 [id number], [address] [place], [address], 4 18:36:48 Patient TargetsNo targets recorded. Patient InstructionsNo instructions recorded. Reason for Referral None Reported. Problems Name Problem SNOMED Code Status Onset Date Resolution Date Notes Provider Name and Address Organization Details Recorded Time Lupus erythematosus 763269617 Active 2023 Melody Palmer null, PA - [facility] 17:11:28 Depressive disorder 72008568 Active 2023 Melody Palmer null, PA - [facility] 17:11:43 Anxiety 34961034 Active 2023 Melody Palmer null, PA - [facility] 17:11:52 Problem Notes None recorded. Medical Equipment None Reported. Allergies Allergen ID Allergen Name Allergen Category Reaction Reaction Severity Criticality Documentation Date Start Date Code Code System Note Provider Name and Address Organization Details Recorded Time 099095 metformin medicatio n hives mild Not available 10/07/2023 6809 [facility] - [facility] 4 17:10:05 Medications Name Sig Start Date Stop Date Status Note LastModified by Organization Details LastModified Time acetaminoph en 325 mg tablet TAKE 2 TABLETS BY MOUTH EVERY 6 HOURS NEEDED FOR PAIN (MILD TO MODERATE PAIN) FOR UP TO 10 DAYS. active Not Available Not Available No t Available trazodone 50 mg tablet TAKE 1/2-1 TABLET BY MOUTH AT BEDTIME active Not Available Not Available No t Available cetirizine 10 mg tablet TAKE 1 TABLET BY MOUTH EVERY DAY NEEDED FOR ALLERGIES active Not Available Not Available No t Available ibuprofen 800 mg tablet TAKE 1 TABLET BY MOUTH EVERY 8 HOURS active Not Available Not Available No t Available fluconazole 150 mg tablet PLEASE SEE ATTACHED FOR DETAILED DIRECTION S active Not Available Not Available No t Available valacyclovi r 1 gram tablet TAKE 1 TABLET BY MOUTH THREE TIMES A DAY FOR 7 DAYS active Not Available Not Available No t Available penicillin V potassium 500 mg tablet TAKE 1 TABLET ORALLY 2 TIMES A DAY FOR 10 DAYS active Not Available Not Available No t Available leflunomide 10 mg tablet TAKE 1 TABLET BY MOUTH EVERY DAY 10/06 completed Not Available Not Available Not Available Ready-To-Us e Enema 19 gram-7 gram/118 mL 133 ML RECTALLY ONCE PER TEST INSTRUCTI ONS. active Not Available Not Available No t Available leflunomide 20 mg tablet TAKE 1 TABLET DAILY active Not Available Not Available No t Available levothyroxi ne 25 mcg tablet TAKE 1 TABLET BY MOUTH EVERY DAY X90 DAYS active Not Available Not Available No t Available lamotrigine 25 mg tablet PLEASE SEE ATTACHED FOR DETAILED DIRECTION S active Not Available Not Available No t Available zinc gluconate 30 mg tablet TAKE 1 TABLET BY MOUTH EVERY DAY (OTC NOT CVRD) active Not Available Not Available No t Available hydrocortis one 1 % topical cream APPLY TOPICALLY TO SKIN DAILY FOR 6 WEEKS active Not Available Not Available No t Available cephalexin 500 mg capsule Take 1 capsule every 8 hours by oral route with meal(s) for 7 days, for infection . 2023 active Not Available Not Available Not Avai lable triamcinolo ne acetonide 55 mcg nasal spray aerosol SPRAY 2 SPRAYS INTO EACH NOSTRIL EVERY DAY active Not Available Not Available No t Available gabapentin 300 mg capsule TAKE 1 CAPSULE BY MOUTH EVERY DAY AT BEDTIME FOR PAIN active Not Available Not Available No t Available mupirocin 2 % topical ointment APPLY A SMALL AMOUNT TO THE AFFECTED AREA BY TOPICAL ROUTE 3 TIMES PER DAY x 10 days 2023 active Not Available Not Available Not Avai lable hydroxychlo roquine 200 mg tablet TAKE 2 TABLETS BY MOUTH EVERY DAY active Not Available Not Available No t Available clotrimazol e 1 % topical cream APPLY TO SKIN DAILY FOR 6 WEEKS active Not Available Not Available No t Available cholecalcif keo (vitamin D3) 125 mcg (5,000 unit) capsule TAKE 1 CAPSULE BY MOUTH DAILY active Not Available Not Available No t Available loratadine 10 mg tablet TAKE 1 TABLET BY MOUTH EVERY DAY NEEDED FOR ALLERGIES active Not Available Not Available No t Available oxycodone 5 mg tablet TAKE 1 TABLET BY MOUTH EVERY 4 HOURS NEEDED FOR PAIN 10/06 completed Not Available Not Available Not Available valsartan 160 mg tablet TAKE 1 TABLET BY MOUTH EVERY DAY active Not Available Not Available No t Available escitalopra m 10 mg tablet TAKE 1 TABLET BY MOUTH EVERY DAY IN THE MORNING active Not Available Not Available No t Available bupropion HCl XL 300 mg 24 hr tablet, extended release TAKE 1 TABLET BY MOUTH EVERY DAY IN THE MORNING active Not Available Not Available No t Available duloxetine 20 mg capsule,del ayed release TAKE 1 CAP EVERY MORNING X2 WEEKS THEN INCREASE TO 1 CAP BY MOUTH TWICE A DAY MORNING & AFTERNOON active Not Available Not Available No t Available duloxetine 30 mg capsule,del ayed release active Not Available Not Available Not Available ferrous sulfate 324 mg (65 mg iron) tablet,akbar yed release TAKE 1 TABLET BY MOUTH EVERY DAY active Not Available Not Available No t Available Vitron-C 65 mg iron-125 mg tablet,akbar yed release TAKE 1 TABLET BY MOUTH DAILY AT BEDTIME active Not Available Not Available No t Available Vitals Date Recorded Body height Body mass index (BMI) Body weight Body temperature Respiratory rate Oxygen saturation Oxygen saturation in Arterial blood by Pulse oximetry Heart rate Systolic blood pressure Diastolic blood pressure Provider Name and Address Organization Details Last Updated DateTime 4 162.56 cm 45.3 kg/m2 758308. 39 g 97.7 [degF] 18 /min 100 % 100 % 72 /min 146 mm[Hg] 88 mm[Hg] Melody Chakraborty PA - [facility] 17:15:27 Social History Question Answer Notes LastModified by Organizat ion Details LastModified Time Tobacco Smoking Status Never Smoker Melody schrader PA - [facility] 10/07/2023 17:12:27 What Is Your Level Of Alcohol Consumption? None Information not available 10/07/2023 Have You Had Direct Contact, Or Contact During Intimacy, With Monkeypox Rash, Scabs, Or Body Fluids From A Person With Monkeypox? No Information not available 10/07/2023 What Was The Date Of Your Most Recent Tobacco Screening? 10/07/2023 Information not available 10/07/2023 Do You Use Any Illicit Or Recreational Drugs? No Information not available 10/07/2023 Have You Recently Traveled Abroad? No Information not available 10/07/2023 Do You Or Have You Ever Used Any Other Forms Of Tobacco Or Nicotine? No Information not available 10/07/2023 Sex: Unknown Functional Status None recorded. Mental Status None recorded. Family History Relationship Description Onset Age of this Age Resolved Age Notes LastModified by Organization Details LastModified Time Father Asthma Not available 0 10/07/2023 17:12:05 Medical History No medical history recorded. Gynecological History Statement/Question Response Date of LMP 10/07/2023 Is there any chance of ? No Obstetrics History GPAL:G 0 P 0 0 0 0 Past Encounters Encounter ID Performer Location Encounter Start Date Encounter Closed Date Diagnosis/Indication Diagnosis SNOMED-CT Code Diagnosis ICD10 [place] [id number] [address] [place] [address] 10/07/2023 16:55:57 10/07/2023 17:37:11 Impetigo 43221335 L01.00 Health Concerns Section Related Observation LastModified by Organization Detai ls LastModified Time None Recorded Concern Status LastModified by Organization Details LastModified Time None Recorded Advance Directives Directive None Recorded Payers Encounter Date Sequence Insurance Name Policy Number Policy Joseph Covered Member ID Joseph Member ID Guarantor Name 10/07/2023 1 [facility] - HEALTH NET PLAN (MEDICAID HMO) MISTY Diane Vides [id number] Diane Vides Notes Date Note Type Note Provider Name and Address Organization Details Recorded Time 4 text/html UC Rash/Skin LesionReported bypatient.source of patient informationInformation obtained from patient; Patient arrived at Urgent Care ambulatory; 37-year-old female comes in stating that she has developed a dry crusty rash around left nostril at the opening involving the upper lip also for more than 2 to 3 days and is not getting better have some yellow discharge from it also. Location:face; lips Quality:itchy;red;spreading Severity:moderate Duration:2 days Context:other exposure; no new detergent or skin product; no recent change in medication; no exposure to hair dye; no expsoure to new clothes/jewelry; no recent travel; no recent illness; no pets/animals in home; not affiliated with chemicals/pesticides Alleviating Factors:nothing gives relief Associated Symptoms:no fever; no fatigue Treatment History:no history of treatment Eric Coto NP [address] [place], [address], [place] - [facility] 10/07/2023 18:36:57 OBGyn Episode No OBEpisode recorded.
== END 2024-06-13 08:31 | disposition home or self-care (01) ==
PROVIDERS: PCP Internal Medicine; Visit Provider Obstetrics & Gynecology
DX: N76.0 Acute vaginitis (principal); B96.89 Other specified bacterial agents as the cause of diseases classified elsewhere
CPT/HCPCS: 99213

== ENCOUNTER 2024-06-28 22:34 | Emergency (ER) | payer OTHER, SELFPAY ==
[2024-06-28 22:39] VITALS: BP 132/80; PULSE 61; RESP 16; TEMP 36.8; O2SAT 99; BMI 46.9
--- NOTE | 2024-06-29 04:01 | ED.EYEPROB ---
HPI - Eye Problem General Chief complaint: Eye Problems Stated complaint: Nail glue on face/eyes Time Seen by Provider: 06/29/24 03:50 Source: patient Mode of arrival: ambulatory Limitations: no limitations History of Present Illness ED Provider: HPI Narrative: Patient apparently using finger nail glue splashed into her face earlier today specially in the right eye patient removed with Vaseline acetone was still feel irritated slight blurring of the vision Related Data Home Medications ?Medication ?Instructions ?Recorded ?Confirmed trazodone 50 mg tablet 25 - 50 mg PO BEDTIME 01/20/22 05/22/24 furosemide 20 mg tablet 20 mg PO DAILY PRN edema 04/22/22 05/22/24 escitalopram oxalate 10 mg tablet mg PO 02/06/23 05/22/24 valsartan 160 mg tablet 160 mg PO DAILY 02/06/23 05/22/24 clotrimazole 1 % topical cream appl topical DAILY 04/10/23 05/22/24 Previous Rx's ?Medication ?Instructions ?Recorded fluticasone propionate 50 1 spray intranasal DAILY 30 days 01/21/21 mcg/actuation nasal #150 mL spray,suspension (Flonase Allergy Relief) albuterol sulfate 90 mcg/actuation 2 puff PO Q4-6H PRN for wheezing 02/16/21 aerosol inhaler (ProAir HFA) #8.5 grams acetaminophen 325 mg capsule 650 mg (2 x 325 mg) PO Q4H PRN 07/02/21 (Tylenol) pain #30 caps Shower Chair #1 ea 11/01/22 hinge brace #1 ea 11/01/22 cetirizine 10 mg tablet 10 mg PO DAILY PRN allergy 04/15/23 symptoms #30 tabs triamcinolone acetonide 55 mcg 2 spray intranasal DAILY #16.9 mL 04/15/23 nasal spray aerosol (Nasal Allergy) docosanol 10 % topical cream 1 appl topical TID #2 grams 06/16/23 (Abreva) cholecalciferol (vitamin D3) 125 125 mcg PO DAILY #90 caps 06/27/23 mcg (5,000 unit) capsule loratadine 10 mg tablet 10 mg PO DAILY PRN allergic 02/29/24 symptoms 90 days #90 tabs levothyroxine 25 mcg tablet 25 mcg PO DAILY 90 days #90 tabs 03/27/24 ofloxacin 0.3 % ear drops 10 drp otic (ears) DAILY 7 days 04/28/24 #10 mL albuterol sulfate 90 mcg/actuation 1 inh inhalation Q4-6H PRN 05/06/24 breath activated powder inhaler shortness of breath or wheezing #1 ea metronidazole 500 mg tablet 500 mg PO BID 7 days #14 tabs 06/13/24 hydroxychloroquine 200 mg tablet 200 mg PO BID #60 tabs 06/14/24 (Plaquenil) leflunomide 10 mg tablet 10 mg PO DAILY #30 tabs 06/17/24 Allergies Allergy/AdvReac Type Severity Reaction Status Date / Time metformin [METFORMIN] Allergy Intermediate INFLAMMED Verified 06/28/24 22:42 GUMS, red gums, redness of gums doxycycline AdvReac Intermediate Itching Verified 06/28/24 22:42 Review of Systems Review of Systems: Yes all other systems are reviewed and are negative PMFSH Past Medical History Medical History Osteoarthritis of knees, bilateral Hyperparathyroidism Vaginal discharge Physical exam Open wound of thumb Lupus Mild recurrent major depression Morbid obesity with BMI of 40.0-44.9, adult Vitamin D deficiency BMI 38.0-38.9,adult Intestinal malabsorption following gastrectomy Preeclampsia Obesity (BMI 30-39.9) Knee pain Hypertension Depression Proteinuria Autoimmune thyroiditis SLE (systemic lupus erythematosus related syndrome) Surgical History History of foot surgery History of open reduction and internal fixation (ORIF) procedure History of sleeve gastrectomy Status post biopsy of kidney Family History Family History Father Asthma Mother No problems noted. Brother No problems noted. Brother No problems noted. Sister No problems noted. Social History Social History Housing: Apartment Alcohol intake: never Patient Tobacco Use Status: Never used Tobacco e-Cigarette/Vaping Use: Never Used Second Hand Smoke Exposure: No Advance Directives: No Advance Directives Information Provided: Yes Do you have a plan to hurt others: No Plan service: No Current occupational status: unemployed Current occupational exposures/hazards: No Cognitive needs: No Hearing needs: No Vision needs: No Physical Exam Vital Signs: Vital Signs: Last Vital Signs Temp 98.2 F 06/29/24 04:32 Pulse 61 06/29/24 04:32 Resp 16 06/29/24 04:32 BP 132/80 06/29/24 04:32 Pulse Ox 99 06/29/24 04:32 O2 Del Method Room Air 06/29/24 04:32 BMI result Body Mass Index 46.9 Appearance: Alert. Oriented X3. No acute distress. Eyes: Still erythema of the right eye fluorescein uptake negative for corneal abrasion anterior chamber normal ENT: Pharynx normal. Oral Mucosa moist Neck: Normal inspection. Neck supple. CVS: Normal heart rate and rhythm. Pulses normal. Respiratory: No respiratory distress. Equal air entry bilateral, no wheezing/rales/rhonchi Abdomen: Soft and nontender. Bowel sounds are present, no mass palpable, no CVA tenderness Skin: Skin warm and dry. Normal skin color. Normal skin turgor. Extremities: No lower extremity edema. No calf tenderness Neuro: Oriented X 3. No motor deficit. Medications Administered Discontinued Medications Generic Name Dose Route Start Last Admin Trade Name Freq PRN Reason Stop Dose Admin Fluorescein Sodium 1 strip 06/29/24 03:59 06/29/24 04:35 Fluorescein Sodium Strip EYE-BOTH 06/29/24 04:00 1 strip ONCE ONE Administration Tobramycin Sulfate 2 drop 06/29/24 03:59 06/29/24 04:35 Tobramycin Sulfate 0.3% Yohana Op 5 Ml Btl EYE-BOTH 06/29/24 04:00 2 drop ONCE ONE Administration Discharge Plan Discharge Clinical Impression: Acute chemical conjunctivitis Patient Disposition: Home, Self-Care Instructions: Conjunctivitis (ED) Additional Instructions: You got irritation from the glue in both eyes use eyedrops as advised No signs of deeper injury/corneal abrasion Prescriptions: No Action albuterol sulfate [ProAir HFA] 90 mcg/actuation HFA aerosol inhaler 2 puff PO Q4-6H PRN (Reason: for wheezing) Qty: 8.5 0RF (DME) hinge brace See Rx Instructions .Route .MEDSUPPLY Qty: 1 0RF Rx Instructions: HEAVY DUTY (DME) Shower Chair Misc See Rx Instructions .Route Qty: 1 0RF Rx Instructions: HEAVY DUTY cholecalciferol (vitamin D3) 125 mcg (5,000 unit) capsule 125 mcg PO DAILY Qty: 90 3RF loratadine 10 mg tablet 10 mg PO DAILY PRN (Reason: allergic symptoms) 90 Days Qty: 90 0RF levothyroxine 25 mcg tablet 25 mcg PO DAILY 90 Days Qty: 90 0RF hydroxychloroquine [Plaquenil] 200 mg tablet 200 mg PO BID Qty: 60 2RF leflunomide 10 mg tablet 10 mg PO DAILY Qty: 30 2RF Rx Instructions: Hold when being treated for an infection. Resume after antibiotic is completed and you feel well. acetaminophen [Tylenol] 325 mg capsule 650 mg PO Q4H PRN (Reason: pain) Qty: 30 0RF triamcinolone acetonide [Nasal Allergy] 55 mcg aerosol,spray 2 spray intranasal DAILY Qty: 16.9 0RF Rx Instructions: administer into each nostril cetirizine 10 mg tablet 10 mg PO DAILY PRN (Reason: allergy symptoms) Qty: 30 0RF ofloxacin 0.3 % drops 10 drp otic (ears) DAILY 7 Days Qty: 10 0RF fluticasone propionate [Flonase Allergy Relief] 50 mcg/actuation spray,suspension 1 spray intranasal DAILY 30 Days Qty: 150 0RF Rx Instructions: administer into each nostril docosanol [Abreva] 10 % cream 1 appl topical TID Qty: 2 0RF trazodone 50 mg tablet 25 - 50 mg PO BEDTIME furosemide 20 mg tablet 20 mg PO DAILY PRN (Reason: edema) escitalopram oxalate 10 mg tablet PO valsartan 160 mg tablet 160 mg PO DAILY clotrimazole 1 % cream topical DAILY metronidazole 500 mg tablet 500 mg PO BID 7 Days Qty: 14 0RF albuterol sulfate 90 mcg/actuation aerosol powdr breath activated 1 inh inhalation Q4-6H PRN (Reason: shortness of breath or wheezing) Qty: 1 0RF Interventions: ED Discharge Assessment Last Done: 06/29/24 04:32 Discharge Date/Time: 06/29/24 04:34 Print Language: Occitan
[2024-06-29 04:32] VITALS: BP 132/80; PULSE 61; RESP 16; TEMP 36.8; O2SAT 99
[2024-06-29] MEDS: Fluorescein Sodium STRIP 1 STRIP EYE-BOTH (04:35)
[2024-06-29] MEDS: Tobramycin Sulfate 0.3% Sol Op 5 ML BTL 2 DROP EYE-BOTH (04:35)
== END 2024-06-29 04:34 | disposition home or self-care (01) ==
PROVIDERS: Emergency Provider Internal Medicine; PCP Internal Medicine
DX: T52.8X1A Toxic effect of other organic solvents, accidental (unintentional), initial encounter (principal); H10.211 Acute toxic conjunctivitis, right eye; Y92.9 Unspecified place or not applicable
CPT/HCPCS: 99282

== ENCOUNTER 2024-07-08 08:21 | Outpatient (AMB) | payer OTHER, SELFPAY ==
--- OUTSIDE RECORDS SUMMARY | 2024-07-08 08:24 | XMS_ITS | Data Portability ---
Author Organization [facility] [id number] Address [address] [place] [id number] Assessment No assessment recorded. Plan of Treatment Reminders Order Date Submit Date Provider Last Modified By Organization Details Last Modified Time Details Appointments None recorded. Lab None recorded. Referral None recorded. Procedures None recorded. Surgeries None recorded. Imaging None recorded. Medication Orders mupirocin 2 % topical ointment 2023 024 [facility] #[id number], [address] [place], [address], 4 18:36:48 cephalexin 500 mg capsule 2023 024 [facility] #[id number], [address] [place], [address], 4 18:36:48 Patient TargetsNo targets recorded. Patient InstructionsNo instructions recorded. Reason for Referral None Reported. Problems Name Problem SNOMED Code Status Onset Date Resolution Date Notes Provider Name and Address Organization Details Recorded Time Lupus erythematosus 622055533 Active 2023 Melody Palmer null, [place] - [facility] 17:11:28 Depressive disorder 44627475 Active 2023 Melody Palmer null, [place] - [facility] 17:11:43 Anxiety 76902977 Active 2023 Melody Palmer null, [place] - [facility] 17:11:52 Problem Notes None recorded. Medical Equipment None Reported. Allergies Allergen ID Allergen Name Allergen Category Reaction Reaction Severity Criticality Documentation Date Start Date Code Code System Note Provider Name and Address Organization Details Recorded Time 895693 metformin medicatio n hives mild Not available [...] Updated DateTime 4 162.56 cm 45.3 kg/m2 466179. 39 g 97.7 [degF] 18 /min 100 [...] Diagnosis/Indication Diagnosis SNOMED-CT Code Diagnosis ICD10 [place] [id number] [address] [place] [address] 10/07/2023 16:55:57 10/07/2023 17:37:11 Impetigo 96967829 L01.00 Health Concerns Section Related Observation LastModified by Organization Detai ls LastModified Time None Recorded Concern Status LastModified by Organization Details LastModified Time None Recorded Advance Directives Directive None Recorded Payers Encounter Date Sequence Insurance Name Policy Number Policy Joseph Covered Member ID Joseph Member ID Guarantor Name 10/07/2023 1 [facility] NET PLAN (MEDICAID HMO) MISTY Diane Vides [id number] Diane Vides Notes Date Note Type Note [...] Coto NP [address] [place], [address], [place] - [facility] 10/07/2023 18:36:57 OBGyn Episode No OBEpisode recorded.
[2024-07-08 08:35] VITALS: BP 112/72; BMI 46.5
--- NOTE | 2024-07-08 08:35 | A.OFFPC_ITS ---
Vital Signs 07/08/24 08:35 Height 5 ft 4 in Weight 271 lb BMI 46.5 BP 112/72 Blood Pressure Location Lt brachial Position Sitting Intake Visit Reasons: PE - see comments Intake Note: Patient here for a physical exam Compensation And Benefits Advisor Required: No Accompanied by: Self / Same As Patient Allergies metformin [METFORMIN] Allergy (Intermediate, Verified 07/08/24 09:02) INFLAMMED GUMS, red gums, redness of gums doxycycline Adverse Reaction (Intermediate, Verified 07/08/24 09:02) Itching Medication List - Last Reconciled 07/08/24 by Delores Silva MD acetaminophen (Tylenol) 650 mg (2 x 325 mg) PO Q4H PRN albuterol sulfate 90 mcg/actuation (ProAir HFA) 2 puffs PO Q4-6H PRN albuterol sulfate 90 mcg/actuation 1 inh inhalation Q4-6H PRN cetirizine 10 mg PO DAILY PRN cholecalciferol (vitamin D3) 125 mcg PO DAILY clotrimazole 1% appl topical DAILY docosanol 10% (Abreva) 1 appl topical TID escitalopram oxalate mg PO fluticasone propionate 50 mcg/actuation (Flonase Allergy Relief) 1 spray intranasal DAILY 30 days furosemide 20 mg PO DAILY PRN [hinge brace HEAVY DUTY] hydroxychloroquine (Plaquenil) 200 mg PO BID leflunomide 10 mg PO DAILY levothyroxine 25 mcg PO DAILY 90 days loratadine 10 mg PO DAILY PRN 90 days Shower Chair HEAVY DUTY trazodone 25 - 50 mg PO BEDTIME triamcinolone acetonide (Nasal Allergy) 2 sprays intranasal DAILY valsartan 160 mg PO DAILY Tobacco use date assessed: 01/01/24 Dental Screening Dental Screen Date: 01/01/24 HPI HPI Comments History of Present Illness Details The patient is a 38-year-old female presenting for her physical exam. She has a history of hypothyroidism, for which she is currently taking levothyroxine 25 mcg. She reports taking Loratadine for allergic rhinitis. The patient also experiences insomnia and is on trazodone for sleep. She has a diagn osis of essential hypertension, for which she is taking valsartan (160 mg once daily), managed by her bingo clerk due to concomitant proteinuria. The patient underwent gastric sleeve surgery five years ago and is currently working with a weight management program, considering further surgical intervention next month. Her BMI is reported at 46.5. A mammogram was performed this year with normal res ults. Her last Pap smear was in 2021 with negative HPV results. Recent laboratory assessments showed a vitamin D level of 26.5, and there is a plan to supplement with vitamin D. The patient has not reported any recent chest pain, shortness of breath, fever, or cough, indicating her overall current condition is stable without acute symptoms affecting these chronic conditions.- Mammogram performed in 2023: results normal. - Pap smear with HPV testing in 2021: HP V negative. - Recent cholesterol levels were satisfa ctory. - Vitamin D level: 26.5 (supplementation planned). - Discussed current weight management ef forts and coordination with upcoming surgery. [facility] Medical History (Updated 07/08/24 @ 12:02 by Delores Silva MD) Osteoarthritis of knees, bilateral Hyperparathyroidism Vaginal discharge Physical exam Open wound of thumb Lupus Mild recurrent major depression Morbid obesity with BMI of 40.0-44.9, adult Vitamin D deficiency BMI 38.0-38.9,adult Intestinal malabsorption following gastrectomy Preeclampsia Obesity (BMI 30-39.9) Knee pain Hypertension Depression Proteinuria Autoimmune thyroiditis SLE (systemic lupus erythematosus related syndrome) Surgical History History of foot surgery History of open reduction and internal fixation (ORIF) procedure History of sleeve gastrectomy Status post biopsy of kidney Family History Father Asthma Mother No problems noted. Brother No problems noted. Brother No problems noted. Sister No problems noted. Social History Housing: Apartment Alcohol intake: never Patient Tobacco Use Status: Never used Tobacco e-Cigarette/Vaping Use: Never Used Second Hand Smoke Exposure: No service: No Current occupational status: unemployed Current occupational exposures/hazards: No Cognitive needs: No Hearing needs: No Vision needs: No Female Reproductive History Menstrual Age of Menarche: 11 Questionnaire PHQ-9 Over the last 2 weeks, how often have you been bothered by any of the following problems? 1. Little interest or pleasure in doing things: more than half the days 2. Feeling down, depressed, or hopeless: more than half the days 3. Trouble falling or staying asleep, or sleeping too much: nearly every day 4. Feeling tired or having little energy: nearly every day 5. Poor appetite or overeating: several days 6. Feeling bad about yourself - or that you are a failure or have let yourself or your family down: more than half the days 7. Trouble concentrating on things, such as reading the newspaper or watching television: more than half the days 8. Moving or speaking so slowly that other people could have noticed. Or the opposite - being so fidgety or restless that you have been moving around a lot more than usual: more than half the days 9. Thoughts that you would be better off or of hurting yourself in some way: more than half the days Total score: 19 Depression Screening Interpretation: Positive (no suicidal thoughts) Depression Screening Follow-up: Existing condition and Follow-up Visit Requested Depression Screening Done: Yes [id number] - PHQ-9 Billing: Yes Source: Developed by Drs. Edmundo Miller, Ghislaine Robbins, Manav Walker and colleagues, with an educational daniel from [employer]. Thrive Questionnaire Date Thrive assessed: 07/08/24 I am a: Patient What is your living situation today?: I have a steady place to live Within the past 12 months, did the food you bought not last and you didn't have the money to get more?: Never true Within the past 12 months, did you worry whether your food would run out before you got money to buy more?: Never true Do you have trouble paying for medicines?: No Do you have trouble getting transportation to medical appointments?: No Do you have trouble paying your heating and electricity bill?: No Do you have trouble taking care of your child, family member or friend?: No Do you have trouble with day-to-day activities such as bathing, preparing meals, shopping, managing finances, etc.?: No Are you currently unemployed and looking for a job?: No Are you interested in more education?: No Please select the resources that you would like help with: None Currently or been in a relationship where the following occur: No concerns reported THRIVE Score: 0 AUDIT C Alcohol Use Questionnaire (AUDIT-C) 1. How often do you have a drink containing alcohol?: Never Total Score: 0 BETHANIE-7 AMB Questionnaire BETHANIE-7 Date BETHANIE - 7 assessed: 07/08/24 Feeling nervous, anxious, or on edge: 3 = Nearly every day Not being able to stop or control worryin = More than half the days Worrying too much about different things: 2 = More than half the days Trouble relaxin = More than half the days Being so restless that it is hard to sit still: 2 = More than half the days Becoming easily annoyed or irritable: 3 = Nearly every day Feeling afraid as if something awful might happen: 2 = More than half the days Total BETHANIE-7 score (0-4 normal; 5-9 mild; 10-14 moderate; 15-21 severe): 16 Source: Developed by Drs. Edmundo Miller, Ghislaine Robbins, Manav Walker and colleagues, with an educational daniel from [employer]. BETHANIE-7 Assessment Billing BETHANIE-7 Assessment Tool: BETHANIE-7 Assessment 38631 Review of Systems Const Details: - Cardiovascular: Denies chest pain or shortness of breath. - Respiratory: Denies fever or cough. - General: Reports overall stable condition. Physical exam (Primary Care) Vital Signs: Last Vital Signs BP 112/72 07/08/24 08:35 BMI result Body Mass Index 46.5 BMI Assessment/Plan discussion: High BMI High, discussed plan: lifestyle, weight reduction, dietary and physical activity Tobacco/Smoking Status: Tobacco use Status Tobacco use date assessed 01/01/24 07/08/24 08:35 Patient Tobacco Use Status Never used Tobacco 07/08/24 08:35 e-Cigarette/Vaping Use Never Used 07/08/24 08:35 PHQ-9: PHQ-9 Score PHQ-9: Total score 19 07/08/24 09:20 Depression Screening Interpretation: Positive (no suicidal thoughts) Depression Screening Follow-up: Existing condition and Follow-up Visit Requested Thrive Assessment: Date of Thrive Assessment Date Thrive assessed 07/08/24 07/08/24 08:39 Currently or been in a relationship where the following occur: No concerns reported Const Other: General: Cooperative, healthy appearing, comfortable, no acute distress and well developed Orientation: Patient oriented x3 Limitations: No limitations Head: Normal to inspection Ears: Hearing grossly normal bilaterally Nose: Normal external nose present Face and sinus: Normal facial exam Eyes: Appearance normal, both eyes and all related structures Neck: Normal visual inspection and Yes full ROM Respiratory: Normal respiratory effort and able to speak in complete sentences. Clear to auscultation bilaterally Cardiovascular: Regular rate and rhythm. Normal S1 and S2 GI: Normal to inspection. Soft to palpation and nontender Skin: No rashes or lesions noted Neuro: Patient oriented x3 Extremities: Normal to inspection Coding Level of Care Code Est Pt Prev Care 40-64y(23400) Diagnoses Physical exam Z00.00 Morbid obesity with BMI of 45.0-49.9, adult E66.01; Z68.42 SLE (systemic lupus erythematosus related syndrome) M32.9 Moderate recurrent major depression F33.1 Stage 3b chronic kidney disease N18.32 Chronic kidney disease stage 3 subtype: stage 3b (GFR 30-44) Additional Codes BETHANIE-7 Assessment Billing - BETHANIE-7 Assessment Tool: BETHANIE-7 Assessment 98883 ([id number]) PHQ-9 - 24781 - PHQ-9 Billing: Yes ([id number]) Time Spent (min) 31 Assessment & Plan Assessment & Plan (1) Physical exam: Code(s): Z00.00 - Encounter for general adult medical examination without abnormal findings Category: Medical (2) Morbid obesity with BMI of 45.0-49.9, adult: Code(s): E66.01 - Morbid (severe) obesity due to excess calories; Z68.42 - Body mass index [BMI] 45.0-49.9, adult Category: Medical (3) SLE (systemic lupus erythematosus related syndrome): Comment: Improved polyarthralgia since being back on DMARD regimen. She continues to have explosive watery diarrhea after HCQ administration. Code(s): M32.9 - Systemic lupus erythematosus, unspecified Category: Medical (4) Moderate recurrent major depression: Code(s): F33.1 - Major depressive disorder, recurrent, moderate Category: Medical (5) CKD (chronic kidney disease) stage 3, GFR 30-59 ml/min: Code(s): N18.30 - Chronic kidney disease, stage 3 unspecified Category: Medical Qualifiers: Chronic kidney disease stage 3 subtype: stage 3b (GFR 30-44) Qualified Code(s): N18.32 - Chronic kidney disease, stage 3b Plan - Continue current medications: levothyroxine, Loratadine, trazodone, and valsartan. - Initiate vitamin D supplementation to address deficiency. - Continue follow-up with nephrology for hypertension and proteinuria management. - Prepare for upcoming weight management surgery next month. - Reinforce wellness measures including regular screenings as already completed. Patient was informed and verbally consented to the use of an ambient scribe for clinic note documentation during this visit. I discussed the patient's current stable condition with maintained control of her chronic conditions through her existing medication regimen. We reviewed her recent normal cholesterol results and discussed the need for vitamin D supplementation. We also covered her weight management plan, including the upcoming surgery next month, providing guidance on the expected outcomes and continued health support framework. The patient is encouraged to maintain her cu rrent management strategies and address any new symptoms if they arise. Orders: Orders Thyroid Stimulating Hormone 6 Months E03.9 - Hypothyroidism, unspecified Medications: New cholecalciferol (vitamin D3) 25 mcg PO DAILY 90 caps 0RF 90 days Discontinued cholecalciferol (vitamin D3) Discontinued Reason: Patient Completed Course 125 mcg PO DAILY 90 caps 3RF Patient Instructions: - Take vitamin D supplements as prescribed. - Continue all current medications. - Follow up with nephrology as scheduled. - Attend the weight management program regularly. - Prepare accordingly for upcoming surgery next month. - Report any new symptoms or changes in condition.
== END 2024-07-08 09:18 | disposition home or self-care (01) ==
PROVIDERS: PCP Internal Medicine; Visit Provider Internal Medicine
DX: Z00.00 Encounter for general adult medical examination without abnormal findings (principal); E66.01 Morbid (severe) obesity due to excess calories; Z68.42 Body mass index [BMI] 45.0-49.9, adult; M32.9 Systemic lupus erythematosus, unspecified; F33.1 Major depressive disorder, recurrent, moderate; N18.32 Chronic kidney disease, stage 3b

== ENCOUNTER → 2024-07-08 08:21 | Outpatient (BNVA) | payer OTHER, SELFPAY | PROVIDERS: PCP Internal Medicine; Visit Provider Internal Medicine | DX: Z00.00 Encounter for general adult medical examination without abnormal findings (principal); E66.01 Morbid (severe) obesity due to excess calories; Z68.42 Body mass index [BMI] 45.0-49.9, adult; M32.9 Systemic lupus erythematosus, unspecified; F33.1 Major depressive disorder, recurrent, moderate; N18.32 Chronic kidney disease, stage 3b | CPT/HCPCS: 96127; 99396 ==

== ENCOUNTER 2024-07-16 12:20 | Outpatient (AMB) | payer OTHER, SELFPAY ==
[2024-07-16 12:47] VITALS: BP 90/62; PULSE 70; TEMP 36.8; O2SAT 99; BMI 45.3
--- NOTE | 2024-07-16 12:47 | AM.OFFWIN_ITS ---
Intake Vital Signs 07/16/24 12:47 Height 5 ft 4 in Weight 264 lb BMI 45.3 BP 90/62 Blood Pressure Location Lt brachial Position Sitting Pulse 70 Pulse Source Pulse Oximeter Temp 98.3 F Temp Source Oral Pulse Oximetry (%) 99 Oxygen Delivery Method Room Air Intake Visit Reasons: EP painful cold sore inside the nose Intake Note: Pt is here today c/o painful cold sore inside nose Lt side Patient Tobacco Use Status: Never used Tobacco Allergies metformin [METFORMIN] Allergy (Intermediate, Verified 07/16/24 12:47) INFLAMMED GUMS, red gums, redness of gums doxycycline Adverse Reaction (Intermediate, Verified 07/16/24 12:47) Itching HPI HPI Comments History of Present Illness Details History of Present Illness - The patient is a 38-year-old female pr esenting with a flare-up of Herpes Simplex Labialis. - Cold sores have been recurrent for the last year, primarily appearing on the nose. - The current exacerbation began one day ago. - The patient reports the sore as painfu l with burning sensations, a noticeable yellowish lump, and swelling on the nasal area. - Previous intervention with Abrcatherinea coleena m was ineffective; past antiviral treatment from the clinic was successful in symptom resolution. Physical Exam General: Cooperative, healthy appearing, comfortable, no acute distress and well developed Orientation: Patient oriented x3 Limitations: No limitations Head: Normal to inspection Ears: Hearing grossly normal bilaterally Nose: 3 small yellowish fluid filled lumps left nare base. Face and sinus: Normal facial exam Eyes: Appearance normal, both eyes and all related structures Neck: Normal visual inspection and Yes full ROM Respiratory: Normal respiratory effort and able to speak in complete sentences. Skin: No rashes or lesions noted Neuro: Patient oriented x3 Extremities: Normal to inspection [facility] Medical History (Updated 07/16/24 @ 13:04 by Yisel Gooden PA-C) Osteoarthritis of knees, bilateral Hyperparathyroidism Vaginal discharge Physical exam Open wound of thumb Lupus Mild recurrent major depression Morbid obesity with BMI of 40.0-44.9, adult Vitamin D deficiency BMI 38.0-38.9,adult Intestinal malabsorption following gastrectomy Preeclampsia Obesity (BMI 30-39.9) Knee pain Hypertension Depression Proteinuria Autoimmune thyroiditis SLE (systemic lupus erythematosus related syndrome) Surgical History History of foot surgery History of open reduction and internal fixation (ORIF) procedure History of sleeve gastrectomy Status post biopsy of kidney Family History Father Asthma Mother No problems noted. Brother No problems noted. Brother No problems noted. Sister No problems noted. Social History Housing: Apartment Alcohol intake: never Patient Tobacco Use Status: Never used Tobacco e-Cigarette/Vaping Use: Never Used Second Hand Smoke Exposure: No service: No Current occupational status: unemployed Current occupational exposures/hazards: No Cognitive needs: No Hearing needs: No Vision needs: No Female Reproductive History Menstrual Age of Menarche: 11 Review of Systems Const All systems reviewed & are unremarkable except as noted in HPI and below Physical Exam Vital Signs: Last Vital Signs Temp 98.3 F 07/16/24 12:47 Pulse 70 07/16/24 12:47 BP 90/62 07/16/24 12:47 Pulse Ox 99 07/16/24 12:47 Oxygen Delivery Method Room Air 07/16/24 12:47 BMI result Body Mass Index 45.3 Assessment & Plan Assessment & Plan (1) Recurrent herpes labialis: Code(s): B00.1 - Herpesviral vesicular dermatitis Plan: The patient is experiencing a recurrence of Herpes Simplex Labialis and will commence treatment with Valacyclovir at a dosage of 1 g twice daily for five days to mitigate symptoms. Her recent GFR of 48 supports the suitability of this antiviral treatment given her lupus-associated renal issues. Adequate hydration is recommended to assist renal processing of the medication, with the presc ription sent to the patient's preferred pharmacy for prompt initiation. Patient was informed and verbally consented to the use of an ambient scribe for clinic note documentation during this visit. Coding Level of Care Code Est Pt Level 3 (47999) Diagnoses Recurrent herpes labialis B00.1
--- OUTSIDE RECORDS SUMMARY | 2024-07-16 14:13 | XMS_ITS | Data Portability ---
Author Organization [facility] [id number] Address [address] [place] [phone] Assessment No assessment recorded. Plan of Treatment Reminders Order Date Submit Date Provider Last Modified By Organization Details Last Modified Time Details Appointments None recorded. Lab None recorded. Referral None recorded. Procedures None recorded. Surgeries None recorded. Imaging None recorded. Medication Orders mupirocin 2 % topical ointment 2023 024 [facility]/Pharmacy #[id number], [address] [place], [address], 4 18:36:48 cephalexin 500 mg capsule 2023 024 [facility]/Pharmacy #[id number], [address] [place], [address], 4 18:36:48 Patient TargetsNo targets recorded. Patient InstructionsNo instructions recorded. Reason for Referral None Reported. Problems Name Problem SNOMED Code Status Onset Date Resolution Date Notes Provider Name and Address Organization Details Recorded Time Lupus erythematosus 588530127 Active 2023 Melody Palmer null, [place] - [facility] 17:11:28 Depressive disorder 82448326 Active 2023 Melody Palmer null, [place] - [facility] 17:11:43 Anxiety 90461568 Active 2023 Melody Palmer null, [place] - [facility] 17:11:52 Problem Notes None recorded. Medical Equipment None Reported. Allergies Allergen ID Allergen Name Allergen Category Reaction Reaction Severity Criticality Documentation Date Start Date Code Code System Note Provider Name and Address Organization Details Recorded Time 006477 metformin medicatio n hives mild Not available [...] Updated DateTime 4 162.56 cm 45.3 kg/m2 866511. 39 g 97.7 [degF] 18 /min 100 [...] Diagnosis/Indication Diagnosis SNOMED-CT Code Diagnosis ICD10 Code Diagnosis Note [id number] Eric Coto, JAMES [address] [place] [address] 10/07/2023 16:55:57 10/07/2023 17:37:11 Impetigo 07110832 L01.00 Impetigo (say im-puh-TY -go ) is a skin infection caused by bacteria. It causes blisters that break and become oozing, yellow, crusty sores. Impetigo can be anywhere on the body. Scratching the sores may spread the infection to other parts of the body. You can also spread it to others through close contact or when you share towels, clothing, and other items. Prescripti on antibiotic ointment or pills can usually cure impetigo. (After a day of antibiotic s, the infection should not spread.) How can you care for yourself at home? Apply antibiotic ointment exactly as instructed . If your doctor prescribed antibiotic pills, take them as directed. Do not stop using them just because you feel better. You need to take the full course of antibiotic s. Gently wash the sores with soap and water each day. If crusts form, your doctor may advise you to soften or remove the crusts. You can do this by soaking them in warm water and patting them dry. This can help the cream or ointment treat impetigo. After you touch the area, wash your hands with soap and water. Or you can use an alcohol-ba sed hand supervisor speech. Don't share items such as towels, sheets, and clothing until the infection is gone. Wash anything that may have touched the infected area. Try to avoid scratching the area. Health Concerns Section Related Observation LastModified by Organization Detai ls LastModified Time None Recorded Concern Status LastModified by Organization Details LastModified Time None Recorded Advance Directives Directive None Recorded Payers Encounter Date Sequence Insurance Name Policy Number Policy Joseph Covered Member ID Joseph Member ID Guarantor Name 10/07/2023 1 [facility] NET PLAN (MEDICAID HMO) MISTY Vides [id number] Diane Vides Notes Date Note Type Note [...] Coto NP [address] [place], [address], [place] - [facility] 10/07/2023 18:36:57 OBGyn Episode No OBEpisode recorded.
== END 2024-07-16 13:07 | disposition home or self-care (01) ==
PROVIDERS: PCP Internal Medicine; Visit Provider Physician Assistant
DX: B00.1 Herpesviral vesicular dermatitis (principal)

== ENCOUNTER → 2024-07-16 12:20 | Outpatient (BNVA) | payer OTHER, SELFPAY | PROVIDERS: PCP Internal Medicine; Visit Provider Physician Assistant | DX: B00.1 Herpesviral vesicular dermatitis (principal) | CPT/HCPCS: 99212 ==

== ENCOUNTER 2024-08-28 12:24 | Outpatient (AMB) | payer OTHER, SELFPAY ==
--- OUTSIDE RECORDS SUMMARY | 2024-08-28 12:45 | XMS_ITS | Data Portability ---
Author Organization [facility]ignon Marsh [facility] [address] Address [address] [place] [phone] Assessment No assessment recorded. Plan of Treatment Reminders Order Date Submit Date Provider Last Modified By Organization Details Last Modified Time Details Appointments None recorded. Lab None recorded. Referral None recorded. Procedures None recorded. Surgeries None recorded. Imaging None recorded. Medication Orders mupirocin 2 % topical ointment 2023 024 [facility]/Pharmacy #[id number], [address] [place], [address], 4 18:36:48 cephalexin 500 mg capsule 2023 024 [facility]/Pharmacy #[id number], [address] [place], [address], 4 18:36:48 Patient TargetsNo targets recorded. Patient InstructionsNo instructions recorded. Reason for Referral None Reported. Problems Name Problem SNOMED Code Status Onset Date Resolution Date Notes Provider Name and Address Organization Details Recorded Time Lupus erythematosus 489075197 Active 2023 Melody Palmer null, PA - [facility] 17:11:28 Depressive disorder 73355931 Active 2023 Melody Palmer null, PA - [facility] 17:11:43 Anxiety 16790486 Active 2023 Melody Palmer null, PA - [facility] 17:11:52 Problem Notes None recorded. Medical Equipment None Reported. Allergies Allergen ID Allergen Name Allergen Category Reaction Reaction Severity Criticality Documentation Date Start Date Code Code System Note Provider Name and Address Organization Details Recorded Time 184676 metformin medicatio n hives mild Not available [...] Updated DateTime 4 162.56 cm 45.3 kg/m2 643017. 39 g 97.7 [degF] 18 /min 100 [...] SNOMED-CT Code Diagnosis ICD10 Code Diagnosis Note [id number] Eric Coto, JAMES [address] [place] [address] 10/07/2023 16:55:57 10/07/2023 17:37:11 Impetigo 31567153 L01.00 Impetigo (say im-puh-TY -go ) is [...] you can use an alcohol-ba sed hand lead investigator. Don't share items such as towels, sheets, [...] Joseph Member ID Guarantor Name 10/07/2023 1 [facility] - [facility] NET PLAN (MEDICAID HMO) MISTY Vides [id number] Diane Vides Notes Date Note Type Note [...] Coto NP [address] [place], [address], [place] - [facility] 10/07/2023 18:36:57 OBGyn Episode No OBEpisode recorded.
--- OUTSIDE RECORDS SUMMARY | 2024-08-28 12:46 | XMS_ITS | Encounter Summary ---
Author Organization [facility] Address [address] [place] [address] Care Team Providers Care Derrickman Helper Name Role Phone Delores Silva MD Primary Care Provider [phone] Reason for Visit * Reason Comments Post-op Visit Sleeve to Bypass 07/10 Encounter Details Date Type Department Care Team ([facility] st Contact Info) Description 08/08/2024 11:15 AM EST Office Visit Bariatric Surgery - [place] [address] [facility] [address] [place] [phone] Ana Lilia Bruce PA [address] [facility] [address] [place] [address] Class 3 severe obesity due to excess calories with serious comorbidity and body mass index (BMI) of 40.0 to 44.9 in adult (CMS/HCC) (Primary Dx); Bariatric surgery status Social History Tobacco Use Types Packs/Day Years Used Date Smoking Tobacco: Never Smokeless Tobacco: Never Tobacco Cessation:Counseling Given: Not Answered Alcohol Use Standard Drinks/Week Comments Not Currently [...] Sign Reading Time Taken Comments Blood Pressure 112/75 08/08/2024 9:53 AM EST Pulse 71 08/08/2024 9:53 AM EST Temperature - - Respiratory Rate - - Oxygen Saturation - - Inhaled Oxygen Concentration - - Weight 112 kg (247 lb 9.6 oz) 08/08/2024 9:53 AM EST Height 162.6 cm (5' 4 ) 08/08/2024 9:53 AM EST Body Mass Index 42.5 08/08/2024 9:53 AM EST documented in this encounter Ordered Prescriptions Prescription Sig Dispense Quantity Refills Last Filled Start Date End Date docusate sodium (Colace) 100 mg capsule Take 1 capsule (100 mg total) by mouth 2 (two) times a day for 10 days. 20 each 08/08/2024 documented in this encounter Progress Notes * TRISTA Cruz - 08/08/2024 11:15 AM EST 08/08/2024 HPI: Diane Vides presents for surgical follow up s/p conversion of gastric sleeve to gastric bypass with Dr. Ontiveros at [facility] on 07/26/2024. She is doing well with no major current concerns or complaints. - 17 lbs since pre op visit Had been doing well up to 3 days ago when water and protein shakes started tasting nasty + nausea Tried Zofran once and did not work quick enough and therefore has not tried again No vomiting Feels slightly dehydrated During this time has also been significantly constipated and has been unable to move her bowels forthe past 3 days Tolerating pur??ed diet without nausea or vomiting No acid reflux Denies fever, chills, chest pain, shortness of breath Body mass index is 42.5 kg/m??. Pathology: N/A ROS: GENERAL: No malaise, significant weight loss or fever HEENT: No changes in hearing or vision, nose bleeds or other nasal problems NECK: No lumps, goiter, pain or significant neck swelling RESPIRATORY: No cough, wheezing or shortness of breath CARDIOVASCULAR: No chest pain, leg swelling or palpitations GI: No abdominal discomfort, blood in stools or black stools MUSCULOSKELETAL: No joint pain or swelling, back pain, or muscle pain. SKIN: No lesions, rash or itching The remainder of the review of systems is noncontributory PAST MEDICAL HISTORY: Patient Active Problem List Diagnosis Absolute anemia Class 3 severe obesity due to excess calories with serious comorbidity and body mass index (BMI) of40.0 to 44.9 in adult ([facility]) Morbid (severe) obesity due to excess calories ([facility]) HTN (hypertension) Chronic renal insufficiency Bariatric surgery status PAST SURGICAL HISTORY: Past Surgical History: Procedure Laterality Date BARIATRIC SURGERY 2019 PROCEDURE:BARIATRIC SURGERY ORIF HIP FRACTURE Right orif r hip from dislocation SOCIAL HISTORY: Social History Tobacco Use Smoking status: Never Smokeless tobacco: Never Substance Use Topics Alcohol use: Not Currently FAMILY HISTORY: No family history on file. No family status information on file. MEDICATIONS: There are no discontinued medications. ACTIVE MEDICATIONS: Medication list was reviewed/updated with the patient. No outpatient medications have been marked as taking for the 08/08/24 encounter (Office Visit) with TRISTA Cruz. ALLERGIES: Allergies Allergen Reactions Metformin Other Gums red and swollen PE: Vitals: 08/08/24 0953 BP: 112/75 Pulse: 71 Weight: 112 kg (247 lb 9.6 oz) Height: 1.626 m (64 ) APPEARANCE: Alert and in no acute distress EYES: Conjunctiva and sclera normal. HEART: RRR with normal S1 and S2, no murmurs LUNG: Nonlabored respirations ABDOMEN: The incisions are healing well. There are no signs of infection, significant erythema, active drainage, seroma, hematoma or dehiscence at the surgical site. Soft, non-tender, non-distended NEURO: Awake, alert and oriented EXTREMITIES: Extremities warm and well perfused without clubbing, cyanosis, or edema. A/P: 1. Class 3 severe obesity due to excess calories with serious comorbidity and body mass index (BMI)of 40.0 to 44.9 in adult ([facility]) 2. Bariatric surgery status Discussed appropriate use of Zofran Discussed ways to increase clear fluid and protein intake without water or protein shakes This includes utilizing sugar-free Powerade, Gatorade, vitamin water Can also switch to protein water or protein powder Colace in addition to Miralax and Benefiber She is advised regarding care of the incision site and is instructed to call if any wound drainage,fever, or other concerns arise. The patient will follow up in 2 weeks and she is to call if there are any problems prior to scheduled visit. TRISTA Cruz documented in this encounter Plan of Treatment Upcoming Encounters Date Type Department Care Team (Late st Contact Info) Description 09/02/2024 1:30 PM EST Appointment [facility] Infusion [facility] [address] [facility] 2nd [place] [address] 09/05/2024 11:15 AM EST Office Visit Bariatric Surgery [facility] [address] [phone] Ana Lilia Bruce PA [address] [address] 09/09/2024 10:00 AM EST Office Visit [facility] Hematology Oncology [address] [place] [phone] Reji Hernandez MD [address] [place] [address] 09/23/2024 11:30 AM EDT Office Visit Bariatric Surgery [facility] [address] [phone] Ana Lilia Bruce PA [address] [place] [address] documented as of this encounter Visit Diagnoses Diagnosis Class 3 severe obesity due to excess calories with serious comorbidity and body mass index (BMI) of 40.0 to 44.9 in adult ([facility])- Primary Bariatric surgery status documented in this encounter Care Teams Derrickman Helper Relationship Specialty Start Date End Date Delores Silva MD [address] [place] [address] , [address] Physician Associ D/B/A: [facility] DI[facility] Roberts PCP - General Internal Medicine 02/09/22 documented as of this encounter
--- OUTSIDE RECORDS SUMMARY | 2024-08-28 12:46 | XMS_ITS | Encounter Summary ---
Author Organization [facility] Address [address] [place] [address] Care Team Providers Care Asbestos Cloth Inspector Name Role Phone Delores Silva MD Primary Care Provider [phone] Reason for Visit * Reason Comments Post-op Visit 2 weeks Encounter Details Date Type Department Care Team ([facility] st Contact Info) Description 08/19/2024 3:45 PM EST Office Visit Bariatric Surgery - [place] [address] [facility] [address] [place] [phone] Ana Lilia Bruce PA [address] [facility] [address] [place] [address] Class 3 severe obesity due to excess [...] Sign Reading Time Taken Comments Blood Pressure 117/69 08/19/2024 3:40 PM EST Pulse 58 08/19/2024 3:40 PM EST Temperature - - Respiratory Rate - - Oxygen Saturation - - Inhaled Oxygen Concentration - - Weight 110 kg (243 lb 3.2 oz) 08/19/2024 3:40 PM EST Height 162.6 cm (5' 4 ) 08/19/2024 3:40 PM EST Body Mass Index 41.75 08/19/2024 3:40 PM EST documented in this encounter Progress Notes * TRISTA Cruz - 08/19/2024 3:45 PM EST Diane Vides is a 38 y.o. year old female who presents for follow up regarding obesity. HPI: Diane Vides presents for surgical follow up s/p conversion of gastric sleeve to gastric bypass with Dr. Ontiveros at [facility] on 07/26/2024. - 4 lbs since has lat appt on 08/08/24 Was having nausea and decreased PO intake Doing much better today Feeling well hydrated Urinating and moving bowels without issue No abd pain No GERD Doing better with protein intake Taking daily vitamin Denies f/c/cp/sob Body mass index is 41.75 kg/m??. ROS: GENERAL: No malaise, significant unintentional weight loss, fever, chills or night sweats. RESPIRATORY: No cough, wheezing or shortness of breath CARDIOVASCULAR: No chest pain, leg swelling or palpitations. GI: No abdominal discomfort, nausea, vomiting, or change in bowel habits. : No dysuria, frequency or incontinence. SKIN: No lesions, rash or itching. HEMATOLOGY/LYMPHOLOGY No prolonged bleeding, easy bruisability or swollen nodes. MUSCULOSKELETAL: No abnormalities. NEURO: No abnormalities. The remainder of the review of systems is noncontributory PAST MEDICAL HISTORY: Patient Active Problem List Diagnosis Absolute anemia Class 3 severe obesity due to excess calories with serious comorbidity and body mass index (BMI) of40.0 to 44.9 in adult ([facility]) Morbid (severe) obesity due to excess calories ([facility]) HTN (hypertension) Chronic renal insufficiency Bariatric surgery [...] There are no discontinued medications. ACTIVE MEDICATIONS: No outpatient medications have been marked as taking for the 08/19/24 encounter (Office Visit) with TRISTA Cruz. ALLERGIES: Allergies Allergen Reactions Metformin Other Gums red and swollen PHYSICAL EXAM: Visit Vitals BP 117/69 Pulse 58 Ht 1.626 m (64 ) Wt 110 kg (243 lb 3.2 oz) BMI 41.75 kg/m?? OB Status Having periods Smoking Status Never BSA 2.12 m?? APPEARANCE: Alert and in no acute distress EYES: Conjunctiva normal and sclera normal and anicteric. LUNG: Chest no retractions. ABDOMEN: Soft, non-tender, without organomegaly or palpable masses. EXTREMITIES: Extremities warm and well perfused without clubbing, cyanosis, or edema. SKIN: Skin color and texture normal. No rashes or lesions. ASSESSMENT: 1. Class 3 severe obesity due to excess calories with serious comorbidity and body mass index (BMI)of 40.0 to 44.9 in adult ([facility]) 2. Bariatric surgery status PLAN: 1. Obesity - Continue to advance diet in accordance with post op francisco javier protocol Continue to monitor protein intake - 60-80g daily Follow up with supervisor paint department Continue daily vit Follow up in 4-6 weeks Medication and lab orders: No orders of the defined types were placed in this encounter. Other orders: None cc: Delores Silva MD documented in this encounter Plan of Treatment Upcoming Encounters Date Type Department Care Team (Late st Contact Info) Description 09/02/2024 1:30 PM EST Appointment [facility] Infusion Center [address] [facility] 2nd [place] [phone] 09/05/2024 11:15 AM EST Office Visit Bariatric Surgery - [place] [address] [facility] [address] [place] [phone] Ana Lilia Bruce PA [address] [facility] [address] [place] [address] 09/09/2024 10:00 AM EST Office Visit [facility] Hematology Oncology [address] [place] [address] Reji Hernandez MD [address] [place] [address] 09/23/2024 11:30 AM EDT Office Visit Bariatric Surgery [facility] [address] [phone] Ana Lilia Bruce PA [address] [address] documented as of this encounter Visit Diagnoses Diagnosis Class 3 severe obesity due to excess calories with serious comorbidity and body mass index (BMI) of 40.0 to 44.9 in adult ([facility])- Primary Bariatric surgery status documented in this encounter Care Teams Asbestos Cloth Inspector Relationship Specialty Start Date End Date Delores Silva MD 2 [facility] , [facility] 101 [facility] Physician Associ D/B/A: [facility] [place] PCP - General Internal Medicine 02/09/22 documented as of this encounter
--- OUTSIDE RECORDS SUMMARY | 2024-08-28 12:46 | XMS_ITS | Encounter Summary ---
Author Organization [facility] Address [address] [address] Phone Care Team Providers Care Sandfill Operator Name Role Phone Delores Mancia MD Primary Care Provider [phone] Encounter Details Date Type Department Care Team (Late st Contact Info) Description 07/11/2024 Office Communication [facility] [address] [address] Zoey Cuevas [address] [address] Social History Tobacco Use Types Packs/Day Years Used Date Smoking Tobacco: Former Smokeless Tobacco: Never Alcohol Use Standard Drinks/Week Comments Yes 0 (1 standard drink = 0.6 oz pure alcohol) Alcoholic Drinks/day: Occasional social drink Comments Unknown Sex and Gender Information Value Date Recorded Sex Assigned at Not on file Legal Sex Female 5:08 PM EST Gender Identity Not on file Sexual Orientation Not on file documented as of this encounter Miscellaneous Notes * Telephone Encounter - Zoey Cuevas - 07/16/2024 9:13 AM EST Patient is aware documented in this encounter Plan of Treatment Upcoming Encounters Date Type Department Care Team (Late st Contact Info) Description 10/07/2024 2:00 PM EDT Office Visit [facility] [address] [place] [address] Darci Gamble MD [address] [address] documented as of this encounter Visit Diagnoses Not on filedocumented in this encounter Care Teams Sandfill Operator Relationship Specialty Start Date End Date Delores Mancia MD [address] [place], [place] PCP - General 07/20/20 documented as of this encounter
--- OUTSIDE RECORDS SUMMARY | 2024-08-28 12:46 | XMS_ITS | Clinical Summary ---
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 Name Role Phone Unavailable Primary Care Provider Unavailabl e Encounters Date Type Department Care Team Description 06/21/2024 9:00 AM EST Office Visit [facility] [address] [place] [address] Martell, Lamar, OD Myopia of both eyes (Primary Dx) 06/21/2024 Travel from Last 3 Months Immunizations Name Administration Dates Next Due DTP 09/06/1998, 6,07/09/1994,1993,03/09/1994 DTaP 08/10/1988, 6,06/09/1984,1983,02/08/1984 HPV, Quadrivalent 10/28/2009 Hep B, Adolescent or Pediatric 09/07/1998,1997,02/17/1998 Hib (HbOC) 10/09/2007,11/07/1995 INFLUENZA INJECTABLE QUADRIV ALANT CCIIV4 MDCK Multi-dose vial 05/02/2022,05/12/2021 IPV 08/09/1995, 5,05/09/1994,1993,07/10/1985,02/07/1985,04/09/1984,0 02/08/1984 Influenza injectable quadriv alent IIV4 with preservative 05/23/2016 Influenza, Split (incl. nii fied surface antigen) 06/03/2013 Influenza, Unspecified 05/05/2020 MMR 08/09/1995, 6,03/09/1995,1984 Pfizer Covid-19 Vaccine 12+ Bivalent 10/04/2022 TD (adult), 2 Lf tetanus tox oid, preservative free, adsorbed 09/07/1998 Tdap 06/23/2020,05/23/2016,10/28/2009 Social History Tobacco Use Types Packs/Day Years Used Date Smoking Tobacco: Never Assessed Comments Unknown Sex and Gender Information Value Date Recorded Sex Assigned at Female 05/09/2022 10:19 AM EDT Legal Sex Female 10:19 AM EDT Gender Identity Female 05/09/2022 10:19 AM EDT Sexual Orientation Choose not to disclose 2021 10:19 AM EDT Plan of Treatment Health Maintenance Due Date Last Done Comments Depression Screening 1983 HIV Screening 1983 Lipid Panel 1983 SDOH Screening 1983 Alcohol/Substance Use Screening 1995 Tobacco Screening 1995 Family Planning (PISQ) 11/24/1998 Hepatitis C Screening 11/24/2001 Pap Smear 11/24/2004 HPV Vaccines (2 - 3-dose series) 2009 10/28/2009 Cervical Cancer Screening 11/24/2013 HPV/Cotest 11/24/2013 Mammogram 2023 COVID-19 Vaccine ( season) 2024 10/04/2022, 06/18/2021, 10/18/2020, Additional history exists Influenza Vaccine (#1) 2024 , 05/12/2021, 05/05/2020, Additional history exists DTaP/Tdap/Td Vaccines (15 - Td or Tdap) 06/23/2030 06/23/2020, 05/23/2016, 10/28/2009, Additional history exists Zoster Vaccines (1 of 2) 11/24/2033 RSV Patients and Patients Aged 60 years or older (1 - 1-dose 75+ series) 11/24/2058 IPV Vaccines Completed 08/09/1995, 02/09, 05/09/1994, Additional history exists Hepatitis B Vaccines Completed 09/07/1998, 05/06/1998, 02/17/1998 HIB Vaccines Aged Out 10/09/2007, 11/07/1995 No lo nger eligible based on patient's age to complete this topic Hepatitis A Vaccines Aged Out No long er eligible based on patient's age to complete this topic Meningococcal Vaccine Aged Out No lisset alicia eligible based on patient's age to complete this topic Pneumococcal Vaccine: Pediatrics (0 to 5 Years) and At-Risk Patients (6 to 49) Years) Aged Out No longer eligible based on patient's age to complete this topic RSV under 20 months Aged Out No longe r eligible based on patient's age to complete this topic Rotavirus Vaccines Aged Out No longer eligible based on patient's age to complete this topic Insurance [facility]
--- OUTSIDE RECORDS SUMMARY | 2024-08-28 12:46 | XMS_ITS | Clinical Summary ---
Author Organization [facility] Address [address] [place] [address] Care Team Providers Care Founder And Chief Technical Officer Name Role Phone Delores Mancia MD Primary Care Provider [phone] Allergies Active Allergy Reactions Criticality Noted Date Comments Metformin Other (see comments) 08/25/2020 Medications acetaminophen (TYLENOL) 325 MG tablet TAKE 3 TABLETS EVERY 6 HOURS NEEDED FOR HEADACHE 08/02/2020 Active Calcium Carbonate-Vitam in D 600-200 MG-UNIT capsule Take 1 capsule by mouth 1 (one) time each day Active sertraline (ZOLOFT) 25 MG tablet Take 25 mg by mouth 1 (one) time each day 09/30/2020 Active hydroxychloroqu ine (PLAQUENIL) 200 MG tablet Take 200 mg by mouth 1 (one) time each day 10/29/2020 Active ALPRAZolam (XANAX) 0.5 MG tablet Take 0.5 mg by mouth if needed 02/01/2021 Active Multiple Vitamin (multivitamin) capsule Take 1 capsule by mouth 1 (one) time each day Active escitalopram (LEXAPRO) 10 MG tablet 2021 Active valsartan (DIOVAN) 160 MG tabletIndicatio ns:Persistent proteinuria,Chr onic kidney disease stage 1 TAKE 1 TABLET BY MOUTH 1 TIME EACH DAY. 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 12/02/2021 Genital herpes simplex 12/02/2021 Ash's thyroiditis 12/02/2021 High risk 12/02/2021 History of bariatric surgical procedure 12/03/19 IgA nephropathy 12/02/2021 Optic disc edema 12/02/2021 Obese class I 12/02/2021 Lupus erythematosus 12/02/2021 Marijuana user 12/02/2021 Chronic kidney disease, stage 2 (mild) Stage 3a chronic kidney disease 01/04/2021 Edema of lower extremity 10/07/2020 Acute nontraumatic kidney injury 08/25/2020 Proteinuria 08/25/2020 Resolved Problems Problem Noted Date Diagnosed Date Resolved Date Pre-eclampsia 09/13/2020 02/08/2021 Chronic kidney disease stage 1 08/25/2020 02/08/2021 Nephrotic syndrome 08/25/2020 SLE glomerulonephritis syndrome 08/25/2020 02/08/2021 Encounters Date Type Department Care Team Description 07/11/2024 Office Communication [facility] [address] [address] Zoey Cuevas from Last 3 Months Immunizations Name Administration Dates Next Due DTP 09/06/1998, 6,07/09/1994,1993,03/09/1994 DTaP 08/10/1988, 6,06/09/1984,1983,02/08/1984 HPV, Quadrivalent 10/28/2009 Hep B, Adolescent or Pediatric 09/07/1998,1997,02/17/1998 Hib (HbOC) 10/09/2007,11/07/1995 IPV 08/09/1995, 5,05/09/1994,1993,07/10/1985,02/07/1985,04/09/1984,0 02/08/1984 Influenza Split 06/03/2013 Influenza, MDCK, Quadrivalen t, with preservative 05/02/2022,05/12/2021 Influenza, Quadrivalent, Wit h Preservative 05/23/2016 Influenza, Unspecified 05/05/2020 MMR 08/09/1995, 6,03/09/1995,1984 Pfizer SARS-COV-2 10/04/2022 Td 09/07/1998 Tdap 06/23/2020,05/23/2016,10/28/2009 Family History Medical History Relation Comments Diabetes Father Relation Status Comments Father Alive Mother Alive Social History Tobacco Use Types Packs/Day Years Used Date Smoking Tobacco: Former Smokeless Tobacco: Never Tobacco Cessation:Counseling Given: No Alcohol Use Standard Drinks/Week Comments Yes 0 (1 standard drink = 0.6 oz pure alcohol) Alcoholic Drinks/day: Occasional social drink Comments Unknown Sex and Gender Information Value Date Recorded Sex Assigned at Not on file Legal Sex Female 5:08 PM EST Gender Identity Not on file Sexual Orientation Not on file Last Filed Vital Signs Vital Sign Reading Time Taken Comments Blood Pressure 119/80 04/08/2024 1:09 PM EDT Pulse 64 04/08/2024 1:09 PM EDT Temperature - - Respiratory Rate - - Oxygen Saturation 97% 04/08/2024 1:09 PM EDT Inhaled Oxygen Concentration - - Weight 120 kg (264 lb 6.4 oz) 04/08/2024 1:09 PM EDT Height 162.6 cm (5' 4 ) 06/06/2022 12:55 PM EST Body Mass Index 45.38 06/06/2022 12:55 PM EST Plan of Treatment Upcoming Encounters Date Type Department Care Team (Late st Contact Info) Description 10/07/2024 2:00 PM EDT Office Visit [facility] [address] [place] [address] Darci Gamble MD [address] [facility] [address] [place] [address] Health Maintenance Due Date Last Done Comments Pneumococcal Vaccine: Pediat rics (0 to 5 Years) and At-Risk Patients (6 to 64 Years) (1 of 2 - PCV) 11/24/1989 Influenza Vaccine (#1) 2024 2, 05/12/2021, 05/05/2020, Additional history exists Hepatitis B Vaccine Completed 09/07/1998, 05/06/1998, 02/17/1998 Insurance [facility] Care Teams Founder And Chief Technical Officer Relationship Specialty Start Date End Date Delores Mancia MD [address] [place], [place] PCP - General 07/20/20
--- OUTSIDE RECORDS SUMMARY | 2024-08-28 12:46 | XMS_ITS | Clinical Summary ---
Author Organization [facility] Address [address] [place] [address] Care Team Providers Care Mural Artist Name Role Phone Delores Mancia MD Primary Care Provid er Allergies Active Allergy Reactions Criticality Noted Date Comments Metformin 01/24/2024 Medications Medication Sig Dispensed Refills Start Date End Date Status hydroxychloroquine (PLAQUENIL) 200 MG tablet Take by mouth daily. 0 Active acetaminophen (TYLENOL) 325 MG tablet Take 2 tablets (650 mg total) by mouth every 6 (six) hours as needed for pain. 0 Active ALPRAZolam (XANAX) 0.5 MG tablet Take 1 tablet (0.5 mg total) by mouth every night at bedtime as needed for sleep. 0 Active escitalopram (LEXAPRO) tablet 10 mg Take 1 tablet (10 mg total) by mouth daily. 0 Active CALCIUM CARBONATE-VIT D-MIN PO Take by mouth. 0 Active valsartan (DIOVAN) tablet 160 mg Take 1 tablet (160 mg total) by mouth daily. 0 03/12/2024 Active traZODone (DESYREL) 50 MG tablet TAKE 1/2-1 TABLET BY MOUTH AT BEDTIME 0 03/27/2024 Active loratadine (CLARITIN) 10 MG tablet TAKE 1 TABLET BY MOUTH EVERY DAY AT BEDTIME NEEDED FOR ALLERGIES 0 02/29/2024 Active levothyroxine (SYNTHROID) tablet 25 mcg Take 1 tablet (25 mcg total) by mouth daily. 0 03/27/2024 Active leflunomide (ARAVA) 20 MG tablet Take 1 tablet (20 mg total) by mouth daily. 0 03/27/2024 Active lamoTRIgine (LaMICtal) 25 MG tablet TAKE 1 TABLET BY MOUTH EVERY MORNING FOR 2 WKS, THEN TAKE 1 TAB 2X/ DAY *STOP IF RASH DEVELOPS* 0 03/27/2024 Active buPROPion (WELLBUTRIN XL) 300 MG 24 hr tablet TAKE 1 TABLET BY MOUTH EVERY DAY IN THE MORNING 0 03/27/2024 Active Active Problems Problem Noted Date Diagnosed Date Absolute anemia 02/05/2024 Social History Tobacco Use Types Packs/Day Years Used Date Smoking Tobacco: Never Smokeless Tobacco: Never Tobacco Cessation:Counseling Given: Not Answered Alcohol Use Standard Drinks/Week Comments Not Currently 0 (1 standard drink = 0.6 oz pur e alcohol) Sex and Gender Information Value Date Recorded Sex Assigned at Not on file Gender Identity Not on file Sexual Orientation Not on file Job Start Date Occupation Industry Not on file Not on file Not on file Last Filed Vital Signs Vital Sign Reading Time Taken Comments Blood Pressure 123/80 04/15/2024 2:29 PM EDT Pulse 65 04/15/2024 2:29 PM EDT Temperature 36.8 ??C (98.2 ??F) 04/15/2024 2:29 PM ED T Respiratory Rate 16 04/15/2024 2:29 PM EDT Oxygen Saturation 100% 04/15/2024 2:29 PM EDT Inhaled Oxygen Concentration - - Weight 120.2 kg (265 lb) 02/12/2024 2:01 PM EDT Height 162.6 cm (5' 4 ) 01/24/2024 8:41 AM EDT Body Mass Index 45.49 01/24/2024 8:41 AM EDT Plan of Treatment Health Maintenance Due Date Last Done Comments Hepatitis C Screening 1983 Depression Screening 1995 BMI Counseling 11/24/2001 Preventative Health Evaluation 11/24/2001 Cervical Cancer Screening (Pap Smear) 11/24/2004 COVID-19 Vaccine ( season) 2024 10/04/2022 Influenza Vaccine (#1) 2024 2, 05/12/2021, 05/23/2016 DTap / Tdap / Td (14 - Td or Tdap) 06/23/2030 06/23/2020, 05/23/2016, 10/28/2009, Additional history exists Hepatitis B Vaccines Completed 09/07/1998, 05/06/1998, 02/17/1998 Pneumococcal Vaccine Aged Out No long er eligible based on patient's age to complete this topic RSV Ped < 20 months Aged Out No longe r eligible based on patient's age to complete this topic Care Teams Mural Artist Relationship Specialty Start Date End Date Delores Mancia MD [address] [facility] , [address] [facility] D/B/A: [facility] [place] [address] PCP - General Internal Medicine 12/13/23
--- OUTSIDE RECORDS SUMMARY | 2024-08-28 12:46 | XMS_ITS | Encounter Summary ---
Author Organization [facility] Address [address] [place] [address] Care Team Providers Care Partridge Farmer Name Role Phone Delores Silva MD Primary Care Provider [phone] Encounter Details Date Type Department Care Team (Late st Contact Info) Description 07/31/2024 Telephone Bariatric Surgery - [address] [place] [address] Loan Javier, ANURADHA Social History Tobacco Use Types Packs/Day Years [...] AM EST documented as of this encounter Progress Notes * Loan Javier RN - 07/31/2024 11:44 AM EST Called patient for a post op follow up. She is post op day 5 s/p conversion of gastric sleeve to bypass by Dr Ontiveros at [facility]. She states overall she is doing well. Reports minimal incisional pain, denies n/v and has not need to take Zofran in 2 days. She reports she is meeting her fluid and protein goals and taking vitamins without issue. We discussed signs and symptoms of dehydration and she stated she is not experiencing any increased lethargy, dizziness, weakness. She reports her incisions are intact a little redness in one area and slightly itchy but I'm not worried. Denies drainage from incision sites, denies fever. Her only complaint is gas pain. She states her gas tends to be worse with the simethecone. She reports she is up walking short walks frequently and changing postioning when she feels the gas pain. I encouraged her to try a heating pad to lower abdomen to help alleviate the discomfort. Patient is aware of her follow up appointment with Ana Lilia WESTON on 08/08/24 at 11:15am. She does not have any questions or concerns at this time and has been advised tocall the bariatric office if concerns arise. documented in this encounter Plan of Treatment Upcoming Encounters Date Type Department Care Team (Late st Contact Info) Description 09/02/2024 1:[address] [facility] Infusion Center [address] [place] [phone] 09/05/2024 11:15 AM EST Office Visit Bariatric Surgery [address] [phone] Ana Lilia Bruce PA [address] [place] [address] 09/09/2024 10:00 AM EST Office Visit [facility] Hematology Oncology [address] [place] [phone] Reji Hernandez MD [address] [place] [address] 09/23/2024 11:30 AM EDT Office Visit Bariatric Surgery [address] [phone] Ana Lilia Bruce PA [address] [place] [address] documented as of this encounter Visit Diagnoses Not on filedocumented in this encounter Care Teams Partridge Farmer Relationship Specialty Start Date End Date Delores Silva MD [address] [facility] , [address] [facility] D/B/A: [facility] DIOR Roberts PCP - General Internal Medicine 02/09/22 documented as of this encounter
--- OUTSIDE RECORDS SUMMARY | 2024-08-28 12:46 | XMS_ITS | Encounter Summary ---
Author Organization [facility] Address [address] [place] [address] Care Team Providers Care Senior Interactive Producer Name Role Phone Delores Silva MD Primary Care Provider Encounter Details Date Type Department Care Team ([facility] Contact Info) Description 07/30/2024 Telephone Bariatric Surgery - [address] [place] [address] Loan Javier, ANURADHA Social History [...] Progress Notes * Loan Javier RN - 07/30/2024 11:09 AM EST Called patient s/p lap conversion of gastric sleeve to bypass. No answer, left messaged asking her to call me back if she is having any issues otherwise I will attempt to call her again tomorrow. documented in this encounter Plan of Treatment Upcoming Encounters Date Type Department Care Team ([facility] Contact Info) Description 09/02/2024 1:30 PM EST Appointment [facility] Infusion Center [address] [facility] 2nd [place] [phone] 09/05/2024 11:15 AM EST Office Visit Bariatric Surgery [facility] [address] [phone] Ana Lilia Bruce PA [address] [address] 09/09/2024 10:00 AM EST Office Visit [facility] Hematology Oncology [address] [place] [phone] Reji Hernandez MD [address] [place] [address] 09/23/2024 11:30 AM EDT Office Visit Bariatric Surgery [facility] [address] [phone] Ana Lilia Bruce PA [address] [address] documented as of this encounter Visit Diagnoses Not on filedocumented in this encounter Care Teams Senior Interactive Producer Relationship Specialty Start Date End Date Delores Silva MD 2 [facility] [address] Physician Associ D/B/A: [facility] [place], [place] PCP - General Internal Medicine 02/09/22 documented as of this encounter
--- OUTSIDE RECORDS SUMMARY | 2024-08-28 12:46 | XMS_ITS | Encounter Summary ---
Author Organization [facility] Address [address] [place] [address] Care Team Providers Care Brim Molder Name Role Phone Delores Silva MD Primary Care Provider [phone] Reason for Visit * Reason Comments Obesity Encounter Details Date Type Department Care Team ([facility] Contact Info) Description 08/26/2024 12:30 PM EST Nutrition Bariatric Surgery - [place] 175 [facility] [address] [place] [phone] Ruth Moore, RD [address] [address] Class 3 severe obesity with body mass index (BMI) of 40.0 to 44.9 in adult, unspecified obesity type, unspecified whether serious comorbidity present (CMS/HCC) (Primary Dx) Social History Tobacco Use Types Packs/Day Years [...] - Inhaled Oxygen Concentration - - Weight 109 kg (240 lb) 08/26/2024 12:11 PM EST Height - - Body Mass Index 41.2 08/19/2024 3:40 PM EST documented in this encounter Progress Notes * Ruth Moore RD - 08/26/2024 12:30 PM EST Images from the original note were not included. Patient-created Goals: Protein goal: 60-80g daily Tracking protein- use handout provided Fluid goal: 48-64 ounces daily, slowly sip, set reminders Eat slowly chew well, eat slowly Continue to stop at the first sign of fullness Ideas: hummus, tuna, chicken salad, nuts documented in this encounter Plan of Treatment Upcoming Encounters Date Type Department Care Team (Late st Contact Info) Description 09/02/2024 1:30 PM EST Appointment [facility] Infusion Center [address] [place] [address] [address] [place] [phone] 09/05/2024 11:15 AM EST Office Visit Bariatric Surgery [facility] [address] [phone] Ana Lilia Bruce PA [address] [address] 09/09/2024 10:00 AM EST Office Visit [facility] Hematology Oncology [address] [place] [phone] Reji Hernandez MD [address] [place] [address] 09/23/2024 11:30 AM EDT Office Visit Bariatric Surgery [facility] [address] [phone] Ana Lilia Bruce PA [address] [address] documented as of this encounter Visit Diagnoses Diagnosis Class 3 severe obesity with body mass index (BMI) of 40.0 to 44.9 in adult, unspecified obesity type, unspecified whether serious comorbidity present (CMS/HCC)- Primary documented in this encounter Care Teams Brim Molder Relationship Specialty Start Date End Date Delores Silva MD 2 [facility] , [facility] [address] [facility]ician Associ D/B/A: [facility] DIOR Roberts PCP - General Internal Medicine 02/09/22 documented as of this encounter
--- OUTSIDE RECORDS SUMMARY | 2024-08-28 12:46 | XMS_ITS | Encounter Summary ---
Author Organization [facility] Address [address] [place] [address] Care Team Providers Care Cooling Pipe Inspector Name Role Phone Delores Silva MD Primary Care Provider [phone] Reason for Visit * Reason Comments Injections B12 injection * Episode Based Medications (Routine) - Authorized Specialty Diagnoses / Procedures Referred By Contac t Referred To Contact Diagnoses Anemia due to vitamin B12 deficiency, unspecified B12 deficiency type Reji Hernandez MD [address] [place] [address] Phone: tel: fax: [address] [address] Phone: tel: fax: Referral ID Status Reason Start Date Expiration Date V isits Requested Visits Authorized [id number] Authorized 05/07/2024 05/07/2025 1 12 Encounter Details Date Type Department Care Team (Latest Contact Info) Description 08/05/2024 12:44 PM EST - 08/05/2024 11:59 PM EST Hospital Encounter [address] [phone] Reji Hernandez MD [address] [place] [address] Anemia due to vitamin B12 deficiency, unspecified B12 deficiency type (Primary Dx) Discharge Disposition: Home or Self Care Social History Tobacco Use Types Packs/Day Years [...] Sign Reading Time Taken Comments Blood Pressure 108/73 08/05/2024 1:00 PM EST Pulse 67 08/05/2024 1:00 PM EST Temperature 36.9 ??C (98.5 ??F) 08/05/2024 1:00 PM ES T Respiratory Rate 18 08/05/2024 1:00 PM EST Oxygen Saturation 100% 08/05/2024 1:00 PM EST Inhaled Oxygen Concentration - - Weight - - Height - - Body Mass Index - - documented in this encounter Medications at Time of Discharge acetaminophen (TYLENOL) 500 mg tablet Take 2 tablets (1,000 mg total) by mouth every 8 (eight) hours. 180 tablet 07/16/2024 albuterol sulfate (ProAir RespiClick) 90 mcg/actuation aerosol powdr breath activated Inhale into the lungs. ALPRAZolam (XANAX) 0.5 mg tablet Take 1 tablet (0.5 mg total) by mouth every night at bedtime as needed for sleep. - Oral calcium carb/vit D3/minerals (CALCIUM CARBONATE-VIT D3-MIN ORAL) Take by mouth. CALCIUM CARBONATE-VIT D-MIN PO Take by mouth. - Oral escitalopram (LEXAPRO) 10 mg tablet Take 1 tablet (10 mg total) by mouth daily. - Oral hydroxychloroqui ne (PLAQUENIL) 200 mg tablet Take 2 tablets (400 mg total) by mouth 1 (one) time each day. oxyCODONE (ROXICODONE) 5 mg immediate release tabletIndication s:H/O gastric sleeve Take 1 tablet (5 mg total) by mouth every 4 (four) hours if needed for moderate pain. Max Daily Amount: 30 mg 15 tablet 07/27/2024 pantoprazole (PROTONIX) 40 mg EC tablet Take 1 tablet (40 mg total) by mouth 1 (one) time each day before breakfast. Do not crush, chew, or split. 30 each 2 07/16/2024 10/14/2024 simethicone (MYLICON) 80 mg chewable tablet Chew 1 tablet (80 mg total) every 6 (six) hours if needed for flatulence. 120 tablet 07/16/2024 ursodioL (ACTIGALL) 300 mg capsule Take 1 capsule (300 mg total) by mouth 2 (two) times a day. 60 each 5 07/16/2024 01/12/2025 valsartan (DIOVAN) 160 mg tablet Take 160 mg by mouth daily. wheat dextrin 3 gram/3.5 gram powder in packet Take 1 packet by mouth 1 (one) time each day. 30 packet 07/16/2024 polyethylene glycol (MIRALAX) 17 gram packet Take 17 g by mouth 1 (one) time each day. 510 g 07/16/2024 08/15/2024 documented as of this encounter Discharge Disposition Disposition Code Departure Means Destination Home or Self Care documented in this encounter Progress Notes * Bel Omalley RN - 08/05/2024 1:30 PM EST 1300: PT arrives this afternoon for monthly B12 injection. PT reports no acute changes or concerns,recently had gastric sleeve procedure on 07/26. PT sts since then she has had a good appetite with no concerns to GI nor system. Stable assessment. PT given water, denies concerns, call hanson in reach. 1320: B12 injection administered into LEFT arm, per PT request, SQ well tolerated without concerns.PT provided with next monthly B12 injection apt. PT verbalized understanding, left unit amb, stableat D/C. documented in this encounter Plan of Treatment Upcoming Encounters Date Type Department Care Team (Late st Contact Info) Description 09/02/2024 1:30 PM EST Appointment [facility] [address] [place] [address] [address] [place] [phone] 09/05/2024 11:15 AM EST Office Visit Bariatric [facility] [place] [address] [phone] Ana Lilia Bruce PA [address] [address] 09/09/2024 10:00 AM EST Office Visit [facility] Hematology Oncology [address] [place] [phone] Reji Hernandez MD [address] [place] [address] 09/23/2024 11:30 AM EDT Office Visit Bariatric Surgery [facility] [address] [phone] Ana Lilia Bruce PA [address] [address] documented as of this encounter Visit Diagnoses Diagnosis Anemia due to vitamin B12 deficiency, unspecified B12 deficiency type- Primary documented in this encounter Administered Medications Inactive Administered Medications - up to 3 most recent administrations Medication Order MAR Action Action Date Dose Rate Site cyanocobalamin (VITAMIN B-12) injection 1,000 mcg 1,000 mcg, subcutaneous, Once, On 08/05/24 at 1315, For 1 dose, Administer as deep subcutaneous injection. Avoid injection into the dermis or upper subcutaneous tissue.Indications:Anemi a due to vitamin B12 deficiency, unspecified B12 deficiency type Given 08/05/2024 1:14 PM EST 1,000 mcg Left Upper Arm (Back) documented in this encounter Orders Medications Ordered That Pablo ht Not Have Been Administered Count Last Ordered Date First Ordered Date cyanocobalamin (VITAMIN B-12 ) injection 1,000 mcg 1 08/05/2024 Appointment Requests Count Last Ordered Date Fi rst Ordered Date ONCBCN INFUSION APPOINTMENT REQUEST 04 documented in this encounter Care Teams Cooling Pipe Inspector Relationship Specialty Start Date End Date Delores Silva MD [address] [place] [address] , [address] Physician Associ D/B/A: [facility] reyez PCP - General Internal Medicine 02/09/22 documented as of this encounter
--- OUTSIDE RECORDS SUMMARY | 2024-08-28 12:46 | XMS_ITS | Encounter Summary ---
Author Organization [facility] Address [address] [place] [address] Care Team Providers Care Purchasing Intern Name Role Phone Delores Silva MD Primary Care Provider [phone] Encounter Details Date Type Department Care Team [...] Description 09/02/2024 1:[address] [facility] [address] [facility] [address] [place] [address] 09/05/2024 11:15 AM EST Office Visit Bariatric Surgery [facility] [address] [phone] Ana Lilia Bruce PA [address] [place] [phone] 09/09/2024 10:00 AM EST Office Visit [facility] Hematology Oncology [address] [place] [phone] Reji Hernandez MD [address] [place] [address] 09/23/2024 11:30 AM EDT Office Visit [facility] [address] [phone] Ana Lilia Bruce PA [address] [place] [phone] documented as of this encounter Visit Diagnoses Not on filedocumented in this encounter Care Teams Purchasing Intern Relationship Specialty Start Date End Date Delores Silva MD [address] [place] [address] , [address] Physician Associ D/B/A: [facility] [place], [place] PCP - General Internal Medicine 02/09/22 documented as of this encounter
--- OUTSIDE RECORDS SUMMARY | 2024-08-28 12:46 | XMS_ITS | Clinical Summary ---
Author Organization [facility] Address [address] [place] [address] Phone Care Team Providers Care [place] Supervisor Name Role Phone Delores Silva MD Primary Care Provider [phone] Allergies Active Allergy Reactions Criticality Noted Date Comments Metformin Other Medium 02/10/2022 Gums red and swollen Medications hydroxychloroqu ine (PLAQUENIL) 200 mg tablet Take 2 tablets (400 mg total) by mouth 1 (one) time each day. Active ALPRAZolam (XANAX) 0.5 mg tablet Take 1 tablet (0.5 mg total) by mouth every night at bedtime as needed for sleep. - Oral Active calcium carb/vit D3/minerals (CALCIUM CARBONATE-VIT D3-MIN ORAL) Take by mouth. CALCIUM CARBONATE-VIT D-MIN PO Take by mouth. - Oral Active escitalopram (LEXAPRO) 10 mg tablet Take 1 tablet (10 mg total) by mouth daily. - Oral Active albuterol sulfate (ProAir RespiClick) 90 mcg/actuation aerosol powdr breath activated Inhale into the lungs. Active valsartan (DIOVAN) 160 mg tablet Take 160 mg by mouth daily. Active acetaminophen (TYLENOL) 500 mg tablet Take 2 tablets (1,000 mg total) by mouth every 8 (eight) hours. 180 tablet 5 Active pantoprazole (PROTONIX) 40 mg EC tablet Take 1 tablet (40 mg total) by mouth 1 (one) time each day before breakfast. Do not crush, chew, or split. 30 each 2 5 10/15/19 25 Active simethicone (MYLICON) 80 mg chewable tablet Chew 1 tablet (80 mg total) every 6 (six) hours if needed for flatulence. 120 tablet 5 Active ursodioL (ACTIGALL) 300 mg capsule Take 1 capsule (300 mg total) by mouth 2 (two) times a day. 60 each 5 5 01/13/20 25 Active wheat dextrin 3 gram/3.5 gram powder in packet Take 1 packet by mouth 1 (one) time each day. 30 packet 5 Active oxyCODONE (ROXICODONE) 5 mg immediate release tabletIndicatio ns:H/O gastric sleeve Take 1 tablet (5 mg total) by mouth every 4 (four) hours if needed for moderate pain. Max Daily Amount: 30 mg 15 tablet 5 Active polyethylene glycol (MIRALAX) 17 gram packet Take 17 g by mouth 1 (one) time each day. 510 g 5 08/15/19 25 ondansetron (ZOFRAN) 4 mg tablet Take 1 tablet (4 mg total) by mouth every 8 (eight) hours if needed for nausea or vomiting for up to 7 days. 21 tablet 5 08/04/19 25 docusate sodium (Colace) 100 mg capsule Take 1 capsule (100 mg total) by mouth 2 (two) times a day for 10 days. 20 each 5 08/18/19 25 Active Problems Problem Noted Date Diagnosed Date Bariatric surgery status 08/08/2024 Chronic renal insufficiency 07/26/2024 HTN (hypertension) 07/25/2024 Morbid (severe) obesity due to excess calories 1 08/19/2023 Class 3 severe obesity with body mass index (BMI) of 40.0 to 44.9 in adult 04/12/2024 Absolute anemia 03/22/2024 Encounters Date Type Department Care Team Description 08/26/2024 12:30 PM [facility] Nutrition Bariatric Surgery - [address] [place] [address] Class 3 severe obesity with body mass index (BMI) of 40.0 to 44.9 in adult, unspecified obesity type, unspecified whether serious comorbidity present ([facility]) (Primary Dx) 08/19/2024 3:45 PM EST Office Visit Bariatric Surgery - [address] [phone] Ana Lilia Bruce PA Class 3 severe obesity due to excess calories with serious comorbidity and body mass index (BMI) of 40.0 to 44.9 in adult ([facility]) (Primary Dx); Bariatric surgery status 08/08/2024 11:15 AM EST Office Visit Bariatric Surgery - [address] [phone] Ana Lilia Bruce PA Class 3 severe obesity due to excess calories with serious comorbidity and body mass index (BMI) of 40.0 to 44.9 in adult ([facility]) (Primary Dx); Bariatric surgery status 08/05/2024 12:44 PM EST - 08/05/2024 11:59 PM EST Hospital Encounter [facility] [address] [place] [phone] Reji Hernandez MD Anemia due to vitamin B12 deficiency, unspecified B12 deficiency type (Primary Dx) Discharge Disposition: Home or Self Care 07/31/2024 Telephone Bariatric Surgery - [address] [phone] Loan Javier RN 07/30/2024 Telephone Bariatric Surgery - [address] [phone] Loan Javier RN 07/26/2024 7:41 AM EST Anesthesia Event [facility] OR [address] [place] [phone] Tameka Gibson MD 07/26/2024 7:30 AM EST - 07/26/2024 10:30 AM EST Surgery [facility] OR [address] [place] [phone] Anaid Ontiveros MD DAVINCI CONVERSION OF SLEEVE TO BYPASS [20016 (CPT??)] 07/26/2024 6:09 AM EST - 07/28/2024 2:38 PM EST Hospital Encounter [facility] [address] [place] [phone] Anaid Ontiveros MD H/O gastric sleeve (Primary Dx) Discharge Disposition: Home or Self Care 07/24/2024 [facility] [address] [phone] Loan Javier RN 07/16/2024 11:45 AM EST Consult Bariatric Surgery [address] [phone] Ana Lilia Bruce PA Class 3 severe obesity due to excess calories with serious comorbidity and body mass index (BMI) of 45.0 to 49.9 in adult (CMS/HCC) (Primary Dx); Gastroesophageal reflux disease, unspecified whether esophagitis present 07/08/2024 1:17 PM EST - 07/08/2024 11:59 PM EST Hospital Encounter [facility] [address] [phone] Anemia due to vitamin B12 deficiency, unspecified B12 deficiency type (Primary Dx) Discharge Disposition: Home or Self Care 06/27/2024 1:00 PM EST Telemedicine Bariatric Surgery [address] [phone] [address] Class 3 severe obesity with body mass index (BMI) of 45.0 to 49.9 in adult, unspecified obesity type, unspecified whether serious comorbidity present (CMS/HCC) (Primary Dx) 06/27/2024 8:35 AM EST - 06/27/2024 11:59 PM EST Hospital Encounter [facility] Xray [address] [place] [phone] Morbid (severe) obesity due to excess calories (CMS/HCC) Discharge Disposition: Home or Self Care 06/10/2024 1:30 PM EST - 06/10/2024 11:59 PM EST Hospital Encounter [facility] [address] [phone] Anemia due to vitamin B12 deficiency, unspecified B12 deficiency type (Primary Dx) Discharge Disposition: Home or Self Care 06/04/2024 Telephone [facility] [address] [phone] Reji Hernandez MD 05/28/2024 Telephone [facility] [address] [phone] Reji Hernandez MD from Last 3 Months Immunizations Name Administration Dates Next Due Pfizer SARS-CoV-2 COVID-19, mRNA, LNP-S, preservative free 10/04/2022 Surgical History Surgery Date Site/Laterality Comments BARIATRIC SURGERY 2019 PROCEDURE:BARIATRIC SURGERY ORIF HIP FRACTURE Right orif r hip from dislocation Medical History Medical History Date Comments Anemia DX:Anemia Hypertension DX:Hypertension Depression DX:Depression Hypothyroidism not taking meds Anxiety Arthritis Joint pain Lupus (systemic lupus erythematosus) ([facility]) Social History Tobacco Use Types Packs/Day Years [...] Orientation Straight 07/15/2024 11 :30 AM EST Obstetrics History Last Filed Vital Signs Vital Sign Reading Time Taken Comments Blood Pressure 117/69 08/19/2024 3:40 PM EST Pulse 58 08/19/2024 3:40 PM EST Temperature 36.9 ??C (98.5 ??F) 08/05/2024 1:00 PM ES T Respiratory Rate 18 08/05/2024 1:00 PM EST Oxygen Saturation 100% 08/05/2024 1:00 PM EST Inhaled Oxygen Concentration - - Weight 109 kg (240 lb) 08/26/2024 12:11 PM EST Height 162.6 cm (5' 4 ) 08/19/2024 3:40 PM EST Body Mass Index 41.2 08/19/2024 3:40 PM EST Plan of Treatment Upcoming Encounters Date Type Department Care Team (Late st Contact Info) Description 09/02/2024 1:30 PM EST Appointment [facility] [address] [facility] [address] [place] [phone] 09/05/2024 11:15 AM EST Office Visit Bariatric Surgery [facility] [address] [phone] Ana Lilia Bruce PA [address] [phone] 09/09/2024 10:00 AM EST Office Visit [facility] Hematology Oncology [address] [place] [phone] Reji Hernandez MD [address] [place] [address] 09/23/2024 11:30 AM EDT Office Visit Bariatric Surgery [address] [phone] Ana Lilia Bruce PA [address] [place] [phone] Health Maintenance Due Date Last Done Comments Breast Cancer Screening 1983 Cervical Cancer Screening: Pap Smear 11/24/2004 HPV Vaccines (2 - 3-dose series) 2009 10/28/2009 Depression Screening 06/19/2022 HIV Screening 06/19/2022 Hepatitis C Screening 06/19/2022 Social Influencers of Health Screening 06/19/2022 COVID-19 Vaccine ( season) 2024 10/04/2022, 06/18/2021, 10/18/2020, Additional history exists Hypertension/CHF/CAD Annual BMP Blood Test 07/28/2025 07/28/2024, 07/27/2024, 07/15/2024, Additional history exists Cholesterol Screening (Lipid Panel) 09/10/2028 09/11/2023 DTaP,Tdap,and Td Vaccines (15 - Td or Tdap) 06/23/2030 06/23/2020, 05/23/2016, 10/28/2009, Additional history exists IPV Vaccines Completed 08/09/1995, 02/09, 05/09/1994, Additional history exists MMR Vaccines Completed 08/09/1995, 07/1995, 03/09/1995, Additional history exists Hepatitis B Vaccines Completed 09/07/1998, 05/06/1998, 02/17/1998 HIB Vaccines Aged Out 10/09/2007, 11/07/1995 No lo nger eligible based on patient's age to complete this topic Influenza Vaccine Completed 06/13/2024, , 05/12/2021, Additional history exists Hepatitis A Vaccines Aged Out No long er eligible based on patient's age to complete this topic Meningococcal ACWY Vaccine Aged Out N o longer eligible based on patient's age to complete this topic Meningococcal B Vacine Aged Out No lo nger eligible based on patient's age to complete this topic Pneumococcal Vaccine: Pediatrics (0 to 5 Years) and At-Risk Patients (6 to 64 Years) Aged Out No longer eligible based on patient's age to complete this topic RSV Immunization Patients Under 20 months Aged Out No longer eligible based on patient's age to complete this topic Varicella Vaccines Aged Out No longer eligible based on patient's age to complete this topic Medical Devices Implanted Type Area Touch Up Edger Device Identifier Shelf Expiration Date Model / Serial / Lot Bone Pin Right: Hip Procedures Procedure Name Priority Date/Time Associated Diagnosis Comments CBC WITH AUTO DIFFERENTIAL Routine 07/28/2024 8:49 AM EST CBC AND DIFFERENTIAL Routine 07/28/2024 8:49 AM EST BASIC METABOLIC PANEL Routine 07/28/2024 8:49 AM EST MAGNESIUM Routine 07/28/2024 8:49 AM EST PHOSPHORUS Routine 07/28/2024 8:49 AM EST CBC WITH AUTO DIFFERENTIAL Routine 07/27/2024 6:44 AM EST MAGNESIUM Routine 07/27/2024 6:44 AM EST BASIC METABOLIC PANEL Routine 07/27/2024 6:44 AM EST CBC AND DIFFERENTIAL Routine 07/27/2024 6:44 AM EST TH AN ENDOTRACHEAL(NO CHARGE) Routine 07/26/2024 7:54 AM EST MA LAP SURG GASTRIC REST PROC W GSTR BYPASS & ROSE-EN-Y GASTROENTEROSTOMY 07/26/2024 7:39 AM EST Morbid (severe) obesity due to excess calories (CMS/HCC) Special Needs In patient / BMI 44.8 CBC WITH AUTO DIFFERENTIAL Routine 07/15/2024 11:38 AM EST Morbid (severe) obesity due to excess calories (CMS/HCC) BASIC METABOLIC PANEL Routine 07/15/2024 11:38 AM EST Morbid (severe) obesity due to excess calories (CMS/HCC) CBC AND DIFFERENTIAL Routine 07/15/2024 11:38 AM EST Morbid (severe) obesity due to excess calories (CMS/HCC) TYPE AND SCREEN Routine 07/15/2024 11:38 AM EST Morbid (severe) obesity due to excess calories (CMS/HCC) DORSEY URINE CULTURE TUBE Routine 07/15/19 25 11:38 AM EST Morbid (severe) obesity due to excess calories (CMS/HCC) URINALYSIS WITH REFLEX MICROSCOPIC AND CULTURE Routine 07/15/2024 11:38 AM EST Morbid (severe) obesity due to excess calories (CMS/HCC) URINALYSIS WITH REFLEX MICROSCOPIC AND CULTURE Routine 07/15/2024 11:38 AM EST Morbid (severe) obesity due to excess calories (CMS/HCC) PROTHROMBIN TIME WITH INR Routine 07/15/2024 11:38 AM EST Morbid (severe) obesity due to excess calories (CMS/HCC) CULTURE URINE Routine 07/15/2024 11:38 AM EST Morbid (severe) obesity due to excess calories (CMS/HCC) ECG 12-LEAD Routine 07/15/2024 11:30 AM EST Morbid (severe) obesity due to excess calories (CMS/HCC) XR CHEST 2 VIEWS Routine 06/27/2024 8:46 AM EST Morbid (severe) obesity due to excess calories (CMS/HCC) CBC WITH AUTO DIFFERENTIAL Routine 05/29/2024 1:04 PM EST Anemia, unspecified type VITAMIN B12 Routine 05/29/2024 1:04 PM EST Anemia, unspecified type CBC AND DIFFERENTIAL Routine 05/29/2024 1:04 PM EST Anemia, unspecified type LIPID PANEL Routine 09/11/2023 from Last 3 Months or Most Recently Relevant to Health Maintenance Results * (ABNORMAL) CBC auto differential (07/28/2024 8:49 AM EST) Only the most recent of4 resultswithin the time period is included. WBC 6.7 4.8 - 10.8 K/mcL LAB HEMETOLOGY METHOD 07/28/2024 9:15 AM [facility] RBC 4.00 3.80 - 4.80 M/mcL LAB HEMETOLOGY METHOD 07/28/2024 9:15 AM [facility] Hemoglobin 11.5 11.5 - 16.0 g/dL LAB HEMETOLOGY METHOD 07/28/2024 9:15 AM [facility] Hematocrit 34.9(L) 35.0 - 47.0 % LAB HEMETOLOGY METHOD 07/28/2024 9:15 AM [facility] MCV 88.4 79.0 - 98.0 FL LAB HEMETOLOGY METHOD 07/28/2024 9:15 AM [facility] MCH 29.1 27.0 - 32.0 pcg LAB HEMETOLOGY METHOD 07/28/2024 9:15 AM [facility] MCHC 33.0 32.0 - 37.0 g/dL LAB HEMETOLOGY METHOD 07/28/2024 9:15 AM [facility] RDW 14.2 11.0 - 15.0 % LAB HEMETOLOGY METHOD 07/28/2024 9:15 AM [facility] Platelets 188 130 - 400 K/mcL LAB HEMETOLOGY METHOD 07/28/2024 9:15 AM [facility] MPV 11.1(H) 7.0 - 11.0 FL LAB HEMETOLOGY METHOD 07/28/2024 9:15 AM [facility] NRBC 0.0 <1.0 % LAB HEMETOLOGY METHOD 07/28/2024 9:15 AM [facility] NRBC Absolute 0.00 <0.10 K/mcL LAB HEMETOLOGY METHOD 07/28/2024 9:15 AM [facility] Neutrophils Relative 79.0 % LAB HEMETOLOGY METHOD 07/28/2024 9:15 AM [facility] Lymphocytes Relative 12.1 % LAB HEMETOLOGY METHOD 07/28/2024 9:15 AM [facility] Monocytes Relative 6.7 % LAB HEMETOLOGY METHOD 07/28/2024 9:15 AM [facility] Eosinophils Relative 1.2 % LAB HEMETOLOGY METHOD 07/28/2024 9:15 AM [facility] Basophils Relative 0.6 % LAB HEMETOLOGY METHOD 07/28/2024 9:15 AM [facility] Immature Granulocytes Relative 0.4 % LAB HEMETOLOGY METHOD 07/28/2024 9:15 AM [facility] Neutrophils Absolute 5.29 1.50 - 7.00 K/[facility] LAB HEMETOLOGY METHOD 07/28/2024 9:15 AM EST [facility] Lymphocytes Absolute 0.81(L) 1.00 - 5.00 K/[facility] LAB HEMETOLOGY METHOD 07/28/2024 9:15 AM EST [facility] Monocytes Absolute 0.45 0.20 - 1.00 K/[facility] LAB HEMETOLOGY METHOD 07/28/2024 9:15 AM EST [facility] Eosinophils Absolute 0.08 0.00 - 0.50 K/[facility] LAB HEMETOLOGY METHOD 07/28/2024 9:15 AM EST [facility] Basophils Absolute 0.04 0.00 - 0.20 K/[facility] LAB HEMETOLOGY METHOD 07/28/2024 9:15 AM EST [facility] Immature Granulocytes Absolute 0.03 0.00 - 0.03 K/[facility] LAB HEMETOLOGY METHOD 07/28/2024 9:15 AM EST [facility] Blood Venous blood specimen / Unknown Venipuncture / Unknown 07/28/2024 8:49 AM EST 07/28/2024 9:04 AM EST us Cassandra WESTON LAB BLOOD ORDERABLES Final Resu lt [facility]) [facility] [address] [place] [address], * (ABNORMAL) Phosphorus (07/28/2024 8:49 AM EST) Phosphorus 2.4(L) 2.5 - 4.5 mg/dL LAB CHEMISTRY METHOD 07/28/2024 9:52 AM EST [facility] Blood Venous blood specimen / Unknown Venipuncture / Unknown 07/28/2024 8:49 AM EST 07/28/2024 9:04 AM EST us Cassandra WESTON LAB BLOOD ORDERABLES Final Resu lt Performing Organization Address City/[facility]/ZIP Co de Phone Number [facility] [address] [place] [address], [place] [phone] * (ABNORMAL) Magnesium (07/28/2024 8:49 AM EST) Only the most recent of2 resultswithin the time period is included. [facility] Magnesium 1.8(L) 1.9 - 2.6 mg/dL LAB CHEMISTRY METHOD 07/28/2024 9:52 AM [facility] Blood Venous blood specimen / Unknown Venipuncture / Unknown 07/28/2024 8:49 AM EST 07/28/2024 9:04 AM EST Cassandra WESTON LAB BLOOD ORDERABLES Final Resu lt Performing Organization Address [facility]/ZIP Co de Phone Number [facility] [address] [place] [address], [place] [phone] * (ABNORMAL) Basic metabolic panel (07/28/2024 8:49 AM EST) Only the most recent of3 resultswithin the time period is included. [facility] Sodium 141 133 - 145 mmol/L LAB CHEMISTRY METHOD 07/28/2024 9:52 AM [facility] Potassium 4.4 3.5 - 5.5 mmol/L LAB CHEMISTRY METHOD 07/28/2024 9:52 AM [facility] Chloride 112(H) 96 - 110 mmol/L LAB CHEMISTRY METHOD 07/28/2024 9:52 AM [facility] CO2 21 21 - 32 mmol/L LAB CHEMISTRY METHOD 07/28/2024 9:52 AM [facility] Anion Gap 8 3 - 11 LAB CHEMISTRY METHOD 07/28/2024 9:52 AM [facility] Glucose 76 70 - 100 mg/dL LAB CHEMISTRY METHOD 07/28/2024 9:52 AM EST [facility] BUN 20 5 - 25 mg/dL LAB CHEMISTRY METHOD 07/28/2024 9:52 AM [facility] Creatinine 1.30(H) 0.50 - 1.10 mg/dL LAB CHEMISTRY METHOD 07/28/2024 9:52 AM [facility] eGFR 53(L) >=60 mL/min/1. 73m2 LAB CHEMISTRY METHOD 07/28/2024 9:52 AM EST [facility] Comment:Calculation based on the??Chronic Kidney Disease Epidemiology Collaboration (CKD-EPI) equation refit??without adjustment for race. BUN/Creatinine Ratio 15.4 LAB CHEMISTRY METHOD 07/28/2024 9:52 AM [facility] Calcium 8.2(L) 8.5 - 10.5 mg/dL LAB CHEMISTRY METHOD 07/28/2024 9:52 AM [facility] Blood Venous blood specimen / Unknown Venipuncture / Unknown 07/28/2024 8:49 AM EST 07/28/2024 9:04 AM EST us Cassandra WESTON LAB BLOOD ORDERABLES Final Resu lt [facility] [address] [place] [address], * TH AN ENDOTRACHEAL(NO CHARGE) (07/26/2024 7:54 AM EST) Radha Joyner CRNA - 07/26/2024 7:54 AM EST Radha Lacey CRNA ? 07/26/2024 ??7:55 AM General Information and Staff Patient location during procedure: OR Anesthesiologist: Tameka Gibson MD Resident/[place]IVER CROSS[place] SUPERVISOR: Radha Lacey CRNA Performed: resident/RIVER CROSSING SUPERVISOR/CAA Performed by: Radha Lacey CRNA Authorized by: Tameka Gibson MD ?? Intubation Airway not difficult Urgency: elective Final Airway Details Successful airway: ETT Cuffed: yes Successful intubation technique: video laryngoscopy Facilitating devices/methods: intubating stylet and anterior pressure/BURP Endotracheal tube insertion site: oral Blade: Abby Blade size: #3 ETT size (mm): 7.5 Cormack-Lehane Classification: grade I - full view of glottis Placement verified by: chest auscultation and capnometry Measured from: lips ETT to lips (cm): 22 Number of attempts at approach: 1 Number of other approaches attempted: 0Final airway type: endotracheal airway Indications and Patient Condition Indications for airway management: anesthesia Spontaneous ventilation: present Sedation level: Yes Preoxygenated: yes Soft Tissue Damage: No Dentition Unchanged: Yes Patient position: sniffing MILS maintained throughout Mask difficulty assessment: 2 - vent by mask + OA or adjuvant +/- NMBA Start Time: 07/26/2024 7:54 AMStop Time: 07/26/2024 7:54 AM Tameka Gibson MD ANESTHESIA ORDERABLES Final Resu lt * (ABNORMAL) Urinalysis with reflex microscopic and culture (07/15/2024 11:38 AM EST) Pathologist [facility] Specific [place] Urine 1.013 1.003 - 1.030 LAB URINALYSIS - AUTOMATED METHOD 07/15/2024 12:27 PM [facility] pH, Urine 5.0 5.0 - 8.0 pH LAB URINALYSIS - AUTOMATED METHOD 07/15/2024 12:27 PM [facility] Leukocytes, Urine Small(A) Negative LAB URINALYSIS - AUTOMATED METHOD 07/15/2024 12:27 PM [facility] Nitrite, Urine Negative Negative LAB URINALYSIS - AUTOMATED METHOD 07/15/2024 12:27 PM [facility] Protein, Urine 100(A) <=Trace mg/dL LAB URINALYSIS - AUTOMATED METHOD 07/15/2024 12:27 PM [facility] Glucose, Urine Negative Negative mg/dL LAB URINALYSIS - AUTOMATED METHOD 07/15/2024 12:27 PM [facility] Ketones, Urine Negative Negative mg/dL LAB URINALYSIS - AUTOMATED METHOD 07/15/2024 12:27 PM [facility] Urobilinogen, Urine 0.2 0.2 - 1.0 mg/dL LAB URINALYSIS - AUTOMATED METHOD 07/15/2024 12:27 PM [facility] Bilirubin, Urine Negative Negative LAB URINALYSIS - AUTOMATED METHOD 07/15/2024 12:27 PM [facility] Blood, Urine Trace(A) Negative LAB URINALYSIS - AUTOMATED METHOD 07/15/2024 12:27 PM [facility] RBC, Urine 2.8 0 - 4 /HPF LAB URINALYSIS - AUTOMATED METHOD 07/15/2024 12:27 PM [facility] WBC, Urine 40.5(H) 0 - 4 /HPF LAB URINALYSIS - AUTOMATED METHOD 07/15/2024 12:27 PM [facility] Squamous Epithelial, Urine 21 0 - 60 /LPF LAB URINALYSIS - AUTOMATED METHOD 07/15/2024 12:27 PM [facility] Bacteria, Urine Negative Negative /HPF LAB URINALYSIS - AUTOMATED METHOD 07/15/2024 12:27 PM [facility] Hyaline Casts, Urine 1.2 0 - 3 /LPF LAB URINALYSIS - AUTOMATED METHOD 07/15/2024 12:27 PM [facility] Urine Urine specimen obtained by clean catch procedure / Unknown Non-blood Collection / Unknown 07/15/2024 11:38 AM EST 07/15/2024 12:14 PM EST us Ana Lilia WESTON LAB URINE ORDERABLES Final R esult [facility] [address] [place] [address], * Dorsey urine culture tube (07/15/2024 11:38 AM EST) Extra Tube Hold for add-ons. 07/15/2024 2:01 PM EST [facility] Comment:Auto resulted. Urine Urine specimen obtained by clean catch procedure / Unknown Non-blood Collection / Unknown 07/15/2024 11:38 AM EST 07/15/2024 12:14 PM EST us Ana Lilia WESTON LAB URINE ORDERABLES Final R esult Performing Organization Address City/[facility]/ZIP Co de Phone Number [facility] [address] [place] [address], [place] [phone] * Prothrombin time with INR (07/15/2024 11:38 AM EST) Protime 12.3 10.6 - 13.9 sec LAB COAGULATION METHOD 07/15/2024 12:26 PM [facility] INR 1.0 LAB COAGULATION METHOD 07/15/2024 12:26 PM [facility] Blood Venous blood specimen / Unknown Venipuncture / Unknown 07/15/2024 11:38 AM EST 07/15/2024 12:14 PM EST us Ana Lilia WESTON LAB BLOOD ORDERABLES Final R esult [facility] [address] [place] [address], [place] [phone] * Type and screen (07/15/2024 11:38 AM EST) ABO Group A 07/15/2024 2:07 PM [facility] Rh Type Positive 07/15/2024 2:07 PM EST [facility] Antibody Screen Negative 07/15/2024 2:07 PM [facility] Blood Venous blood specimen / Unknown Venipuncture / Unknown 07/15/2024 11:38 AM EST 07/15/2024 12:14 PM EST us Ana Lilia WESTON LAB BLOOD BANK TEST ORDERABL ES Final Result Performing Organization Address [facility] Co de Phone Number [facility] [address] [place] [address], [place] [phone] * Culture urine (07/15/2024 11:38 AM EST) Culture, Urine 10,000-49,000 CFU/mL Mixed urogenital bela, no uropathogens present. Suggest repeat specimen if clinically indicated. 07/16/2024 9:24 AM EST [facility] Urine Urine specimen obtained by clean catch procedure / Unknown Non-blood Collection / Unknown 07/15/2024 11:38 AM EST 07/15/2024 12:27 PM EST us Ana Lilia WESTON LAB MICROBIOLOGY - GENERAL O RDERABLES Final Result Performing Organization Address [facility] Co de Phone Number [facility] [address] [place] [address], [place] [phone] * ECG 12 lead (07/15/2024 11:30 AM EST) Ventricular Rate ECG 52 BPM GEMUSE Atrial Rate 52 BPM GEMUSE P-R Interval 136 ms GEMUSE QRS Duration 70 ms GEMUSE Q-T Interval 398 ms GEMUSE QTc 370 ms GEMUSE P Wave [place] 23 degrees GEMUSE R [place] 6 degrees GEMUSE T [place] 23 degrees GEMUSE ECG Interpretation Sinus bradycardia Low voltage QRS Borderline ECG No previous ECGs available Confirmed by POWER GONZALES ([id number]) on 07/15/2024 4:46:00 PM GEMUSE 07/15/2024 11:3 0 AM EST 07/15/2024 4:46 PM EST us Ana Lilia WESTON ECG ORDERABLES Final Result Performing Organization Address [facility] Co de Phone Number GEMUSE * XR Chest 2 Views (06/27/2024 8:46 AM EST) Anatomical Region Laterality Modality Body Radiographic Simran ging 06/27/2024 9:01 AM EST Impressions 06/27/2024 9:02 AM EST Normal examination of the chest. Code 20067 -------- FINAL REPORT -------- Dictated By: Alex Rolle Dictated Date: 06/27/2024 09:01 ET Assigned Physician: Alex Rolle Reviewed and Electronically Signed By: Alex Rolle Signed Date: 06/27/2024 09:02 ET Workstation ID: [id number] Transcribed By: Self Edit Transcribed Date: 06/27/2024 09:01 ET Narrative 06/27/2024 9:02 AM EST HISTORY: The patient is a 38-year-old female undergoing evaluation prior to surgery. The nature of the upcoming surgery is not provided. FINDINGS: PA and lateral radiographs of the chest, without previous for comparison, demonstrate normal appearance of the bony structures. The cardiac and mediastinal contours are within normal limits. The lungs and costophrenic angles are clear. Multiple surgical clips are present in the included portion of the abdominal left upper quadrant. Procedure Note Alex Rolle MD - 06/27/2024 HISTORY: The patient is a 38-year-old female undergoing evaluation priorto surgery. The nature of the upcoming surgery is not provided. FINDINGS: PA and lateral radiographs of the chest, without previous forcomparison, demonstrate normal appearance of the bony structures. Thecardiac and mediastinal contours are within normal limits. The lungs andcostophrenic angles are clear. Multiple surgical clips are present in the included portion of theabdominal left upper quadrant. IMPRESSION: Normal examination of the chest. Code 09099 -------- FINAL REPORT -------- Dictated By: Alex Rolle Dictated Date: 06/27/2024 09:01 ET Assigned Physician: Alex Rolle Reviewed and Electronically Signed By: Alex Rolle Signed Date: 06/27/2024 09:02 ET Workstation ID: [id number] Transcribed By: Self Edit Transcribed Date: 06/27/2024 09:01 ET Ana Lilia WESTON IMG XR PROCEDURES Final Resu lt * Vitamin B12 (05/29/2024 1:04 PM EST) Pathologist [facility] Vitamin B-12 486 250 - 900 pcg/mL LAB CHEMISTRY METHOD 05/29/2024 5:32 PM EST [facility] Blood Venous blood specimen / Unknown Venipuncture / Unknown 05/29/2024 1:04 PM EST 05/29/2024 4:48 PM EST Reji Hernandez MD LAB BLOOD ORDERABLES Final R esult [facility] ([facility] [address] [place] [address], [place] [phone] * Lipid panel (09/11/2023) [facility] LDL/HDL Ratio 3 0 - 4 Triglycerides 129 0 - 150 mg/dL Cholesterol 159 0 - 200 mg/dL HDL 47 >=40 mg/dL LDL Cholesterol 87 0 - 100 mg/dL Blood Venous blood specimen / Unknown Historical Provider LAB BLOOD ORDERABLES Sonam l Result from Last 3 Months or Most Recently Relevant to Health Maintenance Insurance [facility] [phone] Care Teams [place] Supervisor Relationship Specialty Start Date End Date Delores Silva MD [address] [place] [address] , [address] [facility] DIOR Roberts PCP - General Internal Medicine 02/09/22
[2024-08-28 13:05] VITALS: BP 110/80; PULSE 62; O2SAT 98
--- NOTE | 2024-08-28 13:05 | MHC.OFFWIV ---
Intake Vital Signs 08/28/24 13:05 Weight 243 lb BP 110/80 Blood Pressure Location Lt brachial Position Sitting Pulse 62 Pulse Source Pulse Oximeter Pulse Oximetry (%) 98 Oxygen Delivery Method Room Air Intake Visit Reasons: EP RT knee pain Intake Note: Patient here for right leg/knee pain that has been present for 4 days Patient Tobacco Use Status: Never used Tobacco Allergies metformin [METFORMIN] Allergy (Intermediate, Verified 08/28/24 13:16) INFLAMMED GUMS, red gums, redness of gums doxycycline Adverse Reaction (Intermediate, Verified 08/28/24 13:16) Itching Do you need a note to return to daycare/school/sports/work: No HPI HPI Comments History of Present Illness Details She presents to office with R knee pain x 4 days She said pain at rest and with ambulation No known trauma or injury Usually sees orthopedic for knee pain in the past; no surgeries Was told she needs surgery Called ortho and unable to be seen until October Pain currently is R sided Xray from 2021 shows arthritis in medial and lateral joint compartments Sometimes feels like it gives out Has had injections in knees in past with some relief No leg edema or skin color changes PFSH Medical History (Updated 08/28/24 @ 13:33 by Corinna Willson PA-C) Osteoarthritis of knees, bilateral Hyperparathyroidism Vaginal discharge Physical exam Open wound of thumb Lupus Mild recurrent major depression Morbid obesity with BMI of 40.0-44.9, adult Vitamin D deficiency BMI 38.0-38.9,adult Intestinal malabsorption following gastrectomy Preeclampsia Obesity (BMI 30-39.9) Knee pain Hypertension Depression Proteinuria Autoimmune thyroiditis SLE (systemic lupus erythematosus related syndrome) Surgical History History of foot surgery History of open reduction and internal fixation (ORIF) procedure History of sleeve gastrectomy Status post biopsy of kidney Family History Father Asthma Mother No problems noted. Brother No problems noted. Brother No problems noted. Sister No problems noted. Social History Housing: Apartment Alcohol intake: never Patient Tobacco Use Status: Never used Tobacco e-Cigarette/Vaping Use: Never Used Second Hand Smoke Exposure: No service: No Current occupational status: unemployed Current occupational exposures/hazards: No Cognitive needs: No Hearing needs: No Vision needs: No Female Reproductive History Menstrual Age of Menarche: 11 Review of Systems Const Denies chills and Denies fever(s) Card Denies chest pain, Denies pedal edema and Denies leg edema Resp Denies cough Musc Reports arthralgias (R knee), Denies numbness and Denies tingling Skin/Breast Denies rash Neuro Denies numbness and Denies tingling Physical Exam Vital Signs: Last Vital Signs Pulse 62 08/28/24 13:05 BP 110/80 08/28/24 13:05 Pulse Ox 98 08/28/24 13:05 Oxygen Delivery Method Room Air 08/28/24 13:05 General: Non-toxic, NAD. Speaking full sentences. Skin: Warm dry throughout. Legs symmetrical in size and shape bilaterally. No R knee or RLE edema, erythema or ecchymosis Eye: EOMI Respiratory: No respiratory distress or stridor Cardiac: DP pulse intact RLE MSK: Full ROM with flexion/extension R knee. DIffuse ttp medial and lateral joint line of knee. Minimal lateral tibial plateau ttp R knee. No laxity felt with varus or valgus force applied R knee Neurology: Alert. No aphasia or facial droop. Gait without abnormality Psych: Good mood and affect Assessment & Plan Assessment & Plan (1) Osteoarthritis: Code(s): M19.90 - Unspecified osteoarthritis, unspecified site Qualifiers: Osteoarthritis location: knee Osteoarthritis type: unspecified Laterality: right Qualified Code(s): M17.11 - Unilateral primary osteoarthritis, right knee Plan: Patient seen and evaluated. Rest, ice, VIVIAN given Ortho referral given to follow up with Patient gave verbal understanding and had no additional questions or concerns at time of discharge All questions answered Orders: Referrals Orthopedics Referral M19.90 - Unspecified osteoarthritis, unspecified site Coding Level of Care Code Est Pt Level 3 (73111) Diagnoses Osteoarthritis of right knee, unspecified osteoarthritis type M17.11 Osteoarthritis location: knee Osteoarthritis type: unspecified Laterality: right
== END 2024-08-28 13:30 | disposition home or self-care (01) ==
PROVIDERS: PCP Internal Medicine; Visit Provider Physician Assistant
DX: M17.11 Unilateral primary osteoarthritis, right knee (principal)

== ENCOUNTER → 2024-08-28 12:24 | Outpatient (BNVA) | payer OTHER, SELFPAY | PROVIDERS: PCP Internal Medicine | DX: M17.11 Unilateral primary osteoarthritis, right knee (principal) | CPT/HCPCS: 99212 ==

== ENCOUNTER 2024-09-04 13:16 | Outpatient (AMB) | payer OTHER, SELFPAY ==
[2024-09-04 13:28] VITALS: BP 130/82; PULSE 54; O2SAT 99; BMI 42.4
--- NOTE | 2024-09-04 13:28 | A.OFFPC_ITS ---
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 Required: No Accompanied by: Self / Same As Patient Allergies metformin [METFORMIN] Allergy (Intermediate, Verified 09/04/24 23:11) INFLAMMED GUMS, red gums, redness of gums doxycycline Adverse Reaction (Intermediate, Verified 09/04/24 23:11) Itching Medication List - Last Reconciled 09/04/24 by SONIA Mckeno acetaminophen (Tylenol) 650 mg (2 x 325 mg) PO Q4H PRN albuterol sulfate 90 mcg/actuation (ProAir HFA) 2 puffs PO Q4-6H PRN albuterol sulfate 90 mcg/actuation 1 inh inhalation Q4-6H PRN cetirizine 10 mg PO DAILY PRN cholecalciferol (vitamin D3) 25 mcg PO DAILY 90 days clotrimazole 1% appl topical DAILY escitalopram oxalate mg PO fluticasone propionate 50 mcg/actuation (Flonase Allergy Relief) 1 spray intranasal DAILY 30 days [hinge brace HEAVY DUTY] hydroxychloroquine (Plaquenil) 200 mg PO BID leflunomide 10 mg PO DAILY levothyroxine 25 mcg PO DAILY 90 days loratadine 10 mg PO DAILY PRN 90 days Shower Chair HEAVY DUTY trazodone 25 - 50 mg PO BEDTIME triamcinolone acetonide (Nasal Allergy) 2 sprays intranasal DAILY valacyclovir 1,000 mg PO q12h valsartan 160 mg PO DAILY Tobacco use date assessed: 09/04/24 Dental Screening Dental Screen Date: 09/04/24 Did you have a dental visit in the last 12 months?: Yes Did you have a dental problem in the last 6 months where you did not have access to dental care?: No Was dental information given to patient?: Patient has dentist HPI SAME DAY SWOLLEN FEET HPI Details Patient is a 38-year-old female with significant past medical history of moderate recurrent major depression, osteoarthritis of bilateral knees, lupus, chronic kidney disease stage III, hypothyroidism, obesity, status post gastrectomy sleeve The patient is presenting complaints of 3 day history of swollen legs Reports that her legs feels numb towards the ankle Patient reports that this has been an ongoing issue and sometimes she has to be placed on Lasix Patient reports having a gastric surgery on July 26 Reports that she feels like she is gaining weight but only in her legs She denies chest pain, denies shortness of breath, denies heart palpitation or dizziness On exam: The patient lungs is clear to auscultation. The patient has +2 nonpitting edema in bilateral lower extremities Labs were ordered, BNP 205 mildly elevated The patient was given Lasix 20 mg x 3 days the patient was informed that she needs to follow up with Nephrology Patient reports that she will call and make an appointment [facility] Medical History (Updated 09/04/24 @ 13:54 by SONIA Mckeon) Osteoarthritis of knees, bilateral Hyperparathyroidism Vaginal discharge Physical exam Open wound of thumb Lupus Mild recurrent major depression Morbid obesity with BMI of 40.0-44.9, adult Vitamin D deficiency BMI 38.0-38.9,adult Intestinal malabsorption following gastrectomy Preeclampsia Obesity (BMI 30-39.9) Knee pain Hypertension Depression Proteinuria Autoimmune thyroiditis SLE (systemic lupus erythematosus related syndrome) Surgical History History of foot surgery History of open reduction and internal fixation (ORIF) procedure History of sleeve gastrectomy Status post biopsy of kidney Family History Father Asthma Mother No problems noted. Brother No problems noted. Brother No problems noted. Sister No problems noted. Social History Housing: Apartment Alcohol intake: never Patient Tobacco Use Status: Never used Tobacco e-Cigarette/Vaping Use: Never Used Second Hand Smoke Exposure: No service: No Current occupational status: unemployed Current occupational exposures/hazards: No Cognitive needs: No Hearing needs: No Vision needs: No Female Reproductive History Menstrual Age of Menarche: 11 Questionnaire PHQ-9 Over the last 2 weeks, how often have you been bothered by any of the following problems? 1. Little interest or pleasure in doing things: more than half the days 2. Feeling down, depressed, or hopeless: more than half the days 3. Trouble falling or staying asleep, or sleeping too much: nearly every day 4. Feeling tired or having little energy: nearly every day 5. Poor appetite or overeating: several days 6. Feeling bad about yourself - or that you are a failure or have let yourself or your family down: more than half the days 7. Trouble concentrating on things, such as reading the newspaper or watching television: more than half the days 8. Moving or speaking so slowly that other people could have noticed. Or the opposite - being so fidgety or restless that you have been moving around a lot more than usual: more than half the days 9. Thoughts that you would be better off or of hurting yourself in some way: more than half the days Total score: 19 Depression Screening Interpretation: Positive (no suicidal thoughts) Depression Screening Follow-up: Existing condition and Follow-up Visit Requested Depression Screening Done: Yes 97187 - PHQ-9 Billing: Yes Source: Developed by Drs. Edmundo Miller, Ghislaine Robbins, Manav Walker and colleagues, with an educational daniel from [employer]. Thrive Questionnaire Date Thrive assessed: 09/04/24 I am a: Patient What is your living situation today?: I have a steady place to live Within the past 12 months, did the food you bought not last and you didn't have the money to get more?: Never true Within the past 12 months, did you worry whether your food would run out before you got money to buy more?: Never true Do you have trouble paying for medicines?: No Do you have trouble getting transportation to medical appointments?: No Do you have trouble paying your heating and electricity bill?: No Do you have trouble taking care of your child, family member or friend?: No Do you have trouble with day-to-day activities such as bathing, preparing meals, shopping, managing finances, etc.?: No Are you currently unemployed and looking for a job?: No Are you interested in more education?: No Please select the resources that you would like help with: None Currently or been in a relationship where the following occur: No concerns reported THRIVE Score: 0 AUDIT C Alcohol Use Questionnaire (AUDIT-C) 1. How often do you have a drink containing alcohol?: Never 3. How often do you have six or more drinks on one occasion?: Never Total Score: 0 BETHANIE-7 AMB Questionnaire BETHANIE-7 Date BETHANIE - 7 assessed: 09/04/24 Feeling nervous, anxious, or on edge: 3 = Nearly every day Not being able to stop or control worryin = More than half the days Worrying too much about different things: 2 = More than half the days Trouble relaxin = More than half the days Being so restless that it is hard to sit still: 2 = More than half the days Becoming easily annoyed or irritable: 3 = Nearly every day Feeling afraid as if something awful might happen: 2 = More than half the days Total BETHANIE-7 score (0-4 normal; 5-9 mild; 10-14 moderate; 15-21 severe): 16 Source: Developed by Drs. Edmundo Miller, Ghislaine Robbins, Manav Walker and colleagues, with an educational daniel from [employer]. BETHANIE-7 Assessment Billing BETHANIE-7 Assessment Tool: BETHANIE-7 Assessment 33255 Review of Systems Const Details: Denies chills, Denies fatigue, Denies fever(s), Denies headache(s) and Denies weakness HEENT Denies change in vision, Denies dizziness, Denies headache(s), Denies hearing loss, Denies nasal congestion, Denies sinus pain, Denies sinus pressure and Denies sore throat Card Denies chest pain, Denies lightheadedness, Denies dyspnea and Denies other (palp itations) Resp Denies cough, Denies dyspnea and Denies wheezing GI Denies abdominal pain, Denies melena, Denies hematochezia, Denies change in bowel habits, Denies dyspepsia and Denies nausea Denies hematuria and Denies dysuria Musc Denies abnormal gait, Denies myalgias, Denies arthralgias, + numbness (in bilateral lower extremities) and Denies tingling BLE +2 nonpitting edema Skin/Breast Denies rash, Denies unusual bruising and Denies wounds Neuro Denies abnormal gait, Denies dizziness, Denies headache(s), Denies memory loss,+numbness, Denies Sensory deficit (Neuro), Denies tingling and Denies weakness Psych Denies anxiety, Denies depression and Denies memory loss Endo Denies cold intolerance, Denies fatigue, Denies heat intolerance, Denies polydipsia and Denies polyuria Bob/Lymph Denies easy bleeding and Denies easy bruising Aller/Immun Denies wheezing Physical exam (Primary Care) Vital Signs: Last Vital Signs Pulse 54 09/04/24 13:28 BP 130/82 09/04/24 13:28 Pulse Ox 99 09/04/24 13:28 Oxygen Delivery Method Room Air 09/04/24 13:28 BMI result Body Mass Index 42.4 Tobacco/Smoking Status: Tobacco use Status Tobacco use date assessed 09/04/24 09/04/24 13:33 Patient Tobacco Use Status Never used Tobacco 09/04/24 13:33 e-Cigarette/Vaping Use Never Used 09/04/24 13:33 PHQ-9: PHQ-9 Score PHQ-9: Total score 19 09/04/24 17:27 Depression Screening Interpretation: Positive (no suicidal thoughts) Depression Screening Follow-up: Existing condition and Follow-up Visit Requested Thrive Assessment: Date of Thrive Assessment Date Thrive assessed 09/04/24 09/04/24 13:33 Currently or been in a relationship where the following occur: No concerns reported Const Other: General: no acute distress, well developed, alert and awake Nutritional Appearance: well nourished Orientation/consciousness: patient oriented x3 HENMT Head: Yes normocephalic and Yes atraumatic Eyes Pupils: Equal, round and reactive pupils present and Pupil accommodation reflex normal EOM: EOMs intact bilaterally Neck Neck: Yes normal visual inspection, Yes no lymphadenopathy Thyroid: Thyroid normal Resp Effort & Inspection: normal respiratory effort Auscultation: clear to auscultation bilaterally Cardio Rate: regular rate Rhythm: regular rhythm Heart sounds: S1 normal heart sound present, S2 normal heart sound present, no gallops, no murmurs and no rubs GI Palpation (GI): No Abdominal aortic bruit present, Soft to palpation, nontender, No hepatosplenomegaly present and No Rebound tenderness present Auscultation: normal bowel sounds General: Yes no CVA tenderness Skin General: warm and dry. Normal skin color. Normal skin turgor Lesions: no lesions Nails: normal Neuro General: patient oriented x3, gait normal Cranial nerves: Yes Equal, round and reactive pupils present Cognition (Neuro): normal cognition Gait exam (Neuro): Normal gait present Extrem General: Yes normal to inspection, +edema ( +2 nonpitting edema) and No calf tenderness Psych Appearance: grossly normal Affect: normal affect Attitude: cooperative Thought process: Normal thought process present Results Reviewed Results Reviewed: Laboratory Tests 09/04/24 14:14 WBC 5.8 RBC 4.09 L Hgb 12.3 Hct 34.8 L RDW 16.0 Sodium 143 Potassium 3.7 Chloride 113 H Carbon Dioxide 24 BUN 8 L Creatinine 0.99 Estimated GFR > 60 Fasting Glucose 87 Calcium 8.3 L AST 19 ALT 14 Alkaline Phosphatase 91 B-Natriuretic Peptide 205 H Total Protein 6.3 L Albumin 3.2 L TSH 2.40 Free T4 0.99 Coding Level of Care Code Est Pt Level 3 (47013) Diagnoses Leg swelling M79.89 Stage 3b chronic kidney disease N18.32 Chronic kidney disease stage 3 subtype: stage 3b (GFR 30-44) Lupus M32.9 Additional Codes BETHANIE-7 Assessment Billing - BETHANIE-7 Assessment Tool: BETHANIE-7 Assessment 98281 ([id number]) PHQ-9 - 52798 - PHQ-9 Billing: Yes ([id number]) Time Spent (min) 36 Assessment & Plan Assessment & Plan (1) Leg swelling: Code(s): M79.89 - Other specified soft tissue disorders Category: Medical Plan: On exam: The patient lungs is clear to auscultation. The patient has +2 nonpitting edema in bilateral lower extremities Labs were ordered, BNP 205 mildly elevated The patient was given Lasix 20 mg x 3 days the patient was informed that she needs to follow up with Nephrology Patient reports that she will call and make an appointment (2) CKD (chronic kidney disease) stage 3, GFR 30-59 ml/min: Code(s): N18.30 - Chronic kidney disease, stage 3 unspecified Category: Medical Qualifiers: Chronic kidney disease stage 3 subtype: stage 3b (GFR 30-44) Qualified Code(s): N18.32 - Chronic kidney disease, stage 3b Plan: Follow up with Nephrology as scheduled (3) Lupus: Code(s): M32.9 - Systemic lupus erythematosus, unspecified Category: Medical Plan: Continue hydroxychloroquine 400 mg b.i.d. Follow up with rheumatology as scheduled Orders: Orders UA CC w/rflx Micro + Cult Today E03.9 - Hypothyroidism, unspecified, E66.01 - Morbid (severe) obesity due to excess calories, M79.89 - Other specified soft tissue disorders, N18.32 - Chronic kidney disease, stage 3b, Z68.42 - Body mass index [BMI] 45.0-49.9, adult Free T4 (Free Thyroxine) Today E03.9 - Hypothyroidism, unspecified, E66.01 - Morbid (severe) obesity due to excess calories, M79.89 - Other specified soft tissue disorders, N18.32 - Chronic kidney disease, stage 3b, Z68.42 - Body mass index [BMI] 45.0-49.9, adult Complete Blood Count Auto Diff Today E03.9 - Hypothyroidism, unspecified, E66.01 - Morbid (severe) obesity due to excess calories, M79.89 - Other specified soft tissue disorders, N18.32 - Chronic kidney disease, stage 3b, Z68.42 - Body mass index [BMI] 45.0-49.9, adult Comprehensive [place]. Panel Fast Today E03.9 - Hypothyroidism, unspecified, E66.01 - Morbid (severe) obesity due to excess calories, M79.89 - Other specified soft tissue disorders, N18.32 - Chronic kidney disease, stage 3b, Z68.42 - Body mass index [BMI] 45.0-49.9, adult TSH reflex Free T4 Today E03.9 - Hypothyroidism, unspecified, E66.01 - Morbid (severe) obesity due to excess calories, M79.89 - Other specified soft tissue disorders, N18.32 - Chronic kidney disease, stage 3b, Z68.42 - Body mass index [BMI] 45.0-49.9, adult B Type Natriuretic Peptide Today E03.9 - Hypothyroidism, unspecified, E66.01 - Morbid (severe) obesity due to excess calories, M79.89 - Other specified soft tissue disorders, N18.32 - Chronic kidney disease, stage 3b, Z68.42 - Body mass index [BMI] 45.0-49.9, adult Medications: New furosemide (Lasix) 20 mg PO DAILY 3 tabs 0RF
--- OUTSIDE RECORDS SUMMARY | 2024-09-04 16:16 | XMS_ITS | Encounter Summary ---
Author Organization [facility] Address [address] [address] Phone Care Team Providers Care Russian Rubber Name Role Phone Delores Mancia MD Primary Care Provider [phone] Encounter Details Date Type Department Care Team (Late st Contact Info) Description 07/11/2024 Office Communication [facility] [address] [id number] Zoey Cuevas [address] [id number] Social History Tobacco Use Types [...] Office Visit [facility] [address] [place] [address] Darci Gamble MD [address] [phone] documented as of this encounter Visit Diagnoses Not on filedocumented in this encounter Care Teams Russian [employer] Relationship Specialty Start Date End Date Delores Mancia MD [address] [place], [place] PCP - General 07/20/20 documented as of this encounter
--- OUTSIDE RECORDS SUMMARY | 2024-09-04 16:16 | XMS_ITS | Clinical Summary ---
Author Organization [facility] Address [address] [place] [address] Care Team Providers Care General Education Instructor Name Role Phone Delores Mancia MD Primary Care Provider [phone] Allergies Active Allergy Reactions Criticality Noted Date [...] Office Communication [facility] [address] [address] Zoey Cuevas from Last 3 [...] Visit [facility] [address] [place] [address] Darci Gamble MD [address] [facility] [address] [place] [address] Health Maintenance Due Date Last Done Comments Pneumococcal Vaccine: Pediat rics (0 to 5 Years) and At-Risk Patients (6 to 64 Years) (1 of 2 - PCV) 11/24/1989 Influenza Vaccine (#1) 2024 2, 05/12/2021, 05/05/2020, Additional history exists Hepatitis B Vaccine Completed 09/07/1998, 05/06/1998, 02/17/1998 Insurance [facility] MEDICAID [facility] MEDICAID Care Teams General Education Instructor Relationship Specialty Start Date End Date Delores Mancia MD [address] [place], [place] PCP - General 07/20/20
--- OUTSIDE RECORDS SUMMARY | 2024-09-04 16:16 | XMS_ITS | Clinical Summary ---
Author Organization [facility] Address [address] [place] [address] Care Team Providers Care Early Learning Teacher Name Role Phone Delores Mancia MD Primary [...] age to complete this topic Care Teams Early Learning Teacher Relationship Specialty Start Date End Date Delores Mancia MD [address] [facility] , [address] [facility] Physician Associ D/B/A: [facility] [place] [address] PCP - General Internal Medicine 12/13/23
--- OUTSIDE RECORDS SUMMARY | 2024-09-04 16:16 | XMS_ITS | Data Portability ---
Author Organization [facility] [address] Address [address] [place] [phone] Assessment No assessment recorded. Plan of Treatment Reminders Order Date Submit Date Provider Last Modified By Organization Details Last Modified Time Details Appointments None recorded. Lab None recorded. Referral None recorded. Procedures None recorded. Surgeries None recorded. Imaging None recorded. Medication Orders mupirocin 2 % topical ointment 2023 024 [facility] #[id number], [address] [place], [address], 4 18:36:48 cephalexin 500 mg capsule 2023 024 [facility] #[id number], [address] [place], [address], 4 18:36:48 Patient TargetsNo targets recorded. Patient InstructionsNo instructions recorded. Reason for Referral None Reported. Problems Name Problem SNOMED Code Status Onset Date Resolution Date Notes Provider Name and Address Organization Details Recorded Time Lupus erythematosus 010148850 Active 2023 Melody Palmer null, [place] - [facility] 17:11:28 Depressive disorder 96135704 Active 2023 Melody Palmer null, PA - [facility] 17:11:43 Anxiety 52558567 Active 2023 Melody Palmer null, [place] - [facility] 17:11:52 Problem Notes None recorded. Medical Equipment None Reported. Allergies Allergen ID Allergen Name Allergen Category Reaction Reaction Severity Criticality Documentation Date Start Date Code Code System Note Provider Name and Address Organization Details Recorded Time 619184 metformin medicatio n hives mild Not available [...] Updated DateTime 4 162.56 cm 45.3 kg/m2 558929. 39 g 97.7 [degF] 18 /min 100 [...] SNOMED-CT Code Diagnosis ICD10 Code Diagnosis Note [id number] Eric Coto, JAMES [address] [place] [address] 10/07/2023 16:55:57 10/07/2023 17:37:11 Impetigo 34566633 L01.00 Impetigo (say im-puh-TY -go ) is [...] you can use an alcohol-ba sed hand song plugger. Don't share items such as towels, sheets, [...] Joseph Member ID Guarantor Name 10/07/2023 1 [facility] - HEALTH NET PLAN (MEDICAID HMO) MISTY Vides [id number] Diane Vides Notes Date Note Type Note [...] Coto NP [address] [place], [address], [place] - [facility] 10/07/2023 18:36:57 OBGyn Episode No OBEpisode recorded.
--- OUTSIDE RECORDS SUMMARY | 2024-09-04 16:16 | XMS_ITS | Encounter Summary ---
Author Organization [facility] Address [address] [place] [address] Care Team Providers Care Asphalt Smoother Name Role Phone Delores Silva MD Primary Care Provider [phone] Encounter Details Date Type Department Care Team [...] Care Team (Late st Contact Info) Description 09/05/2024 11:15 AM EST Office Visit Bariatric Surgery [facility] [address] [phone] Ana Lilia Bruce PA [address] [address] 09/09/2024 10:00 AM EST Office Visit [facility] Hematology Oncology [address] [place] [phone] Reji Hernandez MD [address] [place] [address] 09/23/2024 11:30 AM EDT Office Visit Bariatric Surgery [facility] [address] [phone] Ana Lilia Bruce PA [address] [place] [address] 09/30/2024 1:30 PM EDT Appointment [facility] Infusion Center [address] [place] [phone] documented as of this encounter Visit Diagnoses Not on filedocumented in this encounter Care Teams Asphalt Smoother Relationship Specialty Start Date End Date Delores Silva MD [address] [place] [address] , [address] Physician Associ D/B/A: [facility] [place], [place] PCP - General Internal Medicine 02/09/22 documented as of this encounter
--- OUTSIDE RECORDS SUMMARY | 2024-09-04 16:16 | XMS_ITS | Clinical Summary ---
Author Organization [employer] Address [address] [facility] [address] [place] [address] Care Team Providers Care Inspector Coated Fabrics Name Role Phone Unavailable Primary Care Provider Unavailabl e Encounters Date Type Department Care Team Description 06/21/2024 9:00 AM EST Office Visit [facility] OPTOMETRY [address] [place] [address] Martell, Lamar, OD Myopia of both eyes [...] patient's age to complete this topic Insurance [facility]
--- OUTSIDE RECORDS SUMMARY | 2024-09-04 16:16 | XMS_ITS | Encounter Summary ---
Author Organization [facility] Address [address] [place] [address] Care Team Providers Care Shingle Catcher Name Role Phone Delores Silva MD Primary Care Provider [phone] Reason for Visit * Episode Based Medications (Routine) - Authorized Specialty Diagnoses / Procedures Referred By Contac t Referred To Contact Diagnoses Anemia due to vitamin B12 deficiency, unspecified B12 deficiency type Reji Hernandez MD [address] [place] [address] Phone: tel: fax: [address] [address] Phone: tel: fax: Referral ID Status Reason Start Date Expiration Date V isits Requested Visits Authorized [id number] Authorized 05/07/2024 05/07/2025 1 12 Encounter Details Date Type Department Care Team (Latest Contact Info) Description 09/02/2024 1:28 PM EST Hospital Encounter [address] [address] Reji Hernandez MD [address] [place] [address] Anemia due to vitamin B12 deficiency, unspecified B12 deficiency type (Primary Dx) Social History Tobacco Use Types [...] Sign Reading Time Taken Comments Blood Pressure 132/82 09/02/2024 1:34 PM EST Pulse 55 09/02/2024 1:34 PM EST Temperature 36.7 ??C (98.1 ??F) 09/02/2024 1:34 PM ES T Respiratory Rate 18 09/02/2024 1:34 PM EST Oxygen Saturation 100% 09/02/2024 1:34 PM EST Inhaled Oxygen Concentration - - Weight - - Height - - Body Mass Index - - documented in this encounter Progress Notes * Dianne Whitley RN - 09/02/2024 1:30 PM EST Patient arrives ambulatory for B-12 injection. Stable patient assessment. Patient resting comfortably in chair with call hanson in reach. 1339-B-12 injection administered RIGHT posterior arm deep subq without incident. Patient's next appointment scheduled and provided to her. Patient stable upon discharge. documented in this encounter Plan of Treatment Upcoming Encounters Date Type Department Care Team (Late st Contact Info) Description 09/05/2024 11:15 AM EST Office Visit Bariatric Surgery [facility] [address] [phone] Ana Lilia Bruce PA [address] [address] 09/09/2024 10:00 AM EST Office Visit [facility] Hematology Oncology [address] [place] [phone] Reji Hernandez MD [address] [place] [address] 09/23/2024 11:30 AM EDT Office Visit Bariatric Surgery - [place] [address] [facility] [address] [place] [address] Ana Lilia Bruce PA [address] [facility] [address] [place] [address] 09/30/2024 1:30 PM EDT Appointment [facility] Infusion Center [address] [facility] 2nd [place] [phone] documented as of this encounter Visit Diagnoses Diagnosis Anemia due to vitamin B12 deficiency, unspecified B12 deficiency type- Primary documented in this encounter Administered Medications Inactive Administered Medications - up to 3 most recent administrations Medication Order MAR Action Action Date Dose Rate Site cyanocobalamin (VITAMIN B-12) injection 1,000 mcg 1,000 mcg, subcutaneous, Once, On Mon09/02/24 at 1400, For 1 dose, Administer as deep subcutaneous injection. Avoid injection into the dermis or upper subcutaneous tissue.Indications:Anemi a due to vitamin B12 deficiency, unspecified B12 deficiency type Given 09/02/2024 1:39 PM EST 1,000 mcg Right Upper Arm (Back) documented in this encounter Orders Medications Ordered That Pablo ht Not Have Been Administered Count Last Ordered Date First Ordered Date cyanocobalamin (VITAMIN B-12 ) injection 1,000 mcg 1 09/02/2024 Appointment Requests Count Last Ordered Date Fi rst Ordered Date ONCBCN INFUSION APPOINTMENT REQUEST 04 documented in this encounter Care Teams Shingle Catcher Relationship Specialty Start Date End Date Delores Silva MD [address] [place] [address] , [facility] [address] [facility] Physician Associ D/B/A: [facility] [place], [place] PCP - General Internal Medicine 02/09/22 documented as of this encounter
--- OUTSIDE RECORDS SUMMARY | 2024-09-04 16:17 | XMS_ITS | Clinical Summary ---
Author Organization [facility] Address [address] [place] [address] Phone Care Team Providers Care Title Processor Name Role Phone Delores Silva MD Primary Care Provider [phone] Allergies Active Allergy Reactions Criticality Noted Date [...] each day. 510 g 5 08/15/19 25 docusate sodium (Colace) 100 mg capsule [...] Encounters Date Type Department Care Team Description 09/02/2024 1:28 PM EST Hospital Encounter [facility] [address] [facility] 2nd [place] [address] Reji Hernandez MD Anemia due to vitamin B12 deficiency, unspecified B12 deficiency type (Primary Dx) 08/26/2024 12:30 PM EST Nutrition Bariatric Surgery - [place] [address] [facility] [address] [place] [address] Class 3 severe obesity with body mass index (BMI) of 40.0 to 44.9 in adult, unspecified obesity type, unspecified whether serious comorbidity present ([facility]) (Primary Dx) 08/19/2024 3:45 PM EST Office Visit Bariatric Surgery - [address] [phone] Ana Lilia Bruce PA Class 3 severe obesity due to excess calories with serious comorbidity and body mass index (BMI) of 40.0 to 44.9 in adult ([facility]) (Primary Dx); Bariatric surgery status 08/08/2024 11:15 AM EST Office Visit Bariatric Surgery - [address] [phone] Ana Lilia Bruce PA Class 3 severe obesity due to excess calories with serious comorbidity and body mass index (BMI) of 40.0 to 44.9 in adult ([facility]) (Primary Dx); Bariatric surgery status 08/05/2024 12:44 PM EST - 08/05/2024 11:59 PM EST Hospital Encounter [facility] [address] [place] [phone] Reji Hernandez MD Anemia due to vitamin B12 deficiency, unspecified B12 deficiency type (Primary Dx) Discharge Disposition: Home or Self Care 07/31/2024 Telephone Bariatric Surgery - [address] [phone] Loan Javier, RN 07/30/2024 Telephone Bariatric Surgery - [address] [phone] Loan Javier, RN 07/26/2024 7:41 AM EST Anesthesia Event [facility] [address] [place] [phone] Tameka Gibson MD 07/26/2024 7:30 AM EST - 07/26/2024 10:30 AM EST Surgery [facility] OR [address] [place] [phone] Anaid Ontiveros MD DAVINCI CONVERSION OF SLEEVE TO BYPASS [[id number] (CPT??)] 07/26/2024 6:09 AM EST - 07/28/2024 2:38 PM EST Hospital Encounter [facility] [address] [place] [address] Anaid Ontiveros MD H/O gastric sleeve (Primary Dx) Discharge Disposition: Home or Self Care 07/24/2024 [place] [facility] [address] [phone] Loan Javier RN 07/16/2024 11:45 AM EST Consult Bariatric Surgery [address] [phone] Ana Lilia Bruce PA Class 3 severe obesity due to excess calories with serious comorbidity and body mass index (BMI) of 45.0 to 49.9 in adult (CMS/HCC) (Primary Dx); Gastroesophageal reflux disease, unspecified whether esophagitis present 07/08/2024 1:17 PM EST - 07/08/2024 11:59 PM EST Hospital Encounter [facility] [address] [place] [phone] Anemia due to vitamin B12 deficiency, unspecified B12 deficiency type (Primary Dx) Discharge Disposition: Home or Self Care 06/27/2024 1:00 PM EST Telemedicine Bariatric Surgery [address] [phone] [address] Class 3 severe obesity with body mass index (BMI) of 45.0 to 49.9 in adult, unspecified obesity type, unspecified whether serious comorbidity present (CMS/HCC) (Primary Dx) 06/27/2024 8:35 AM EST - 06/27/2024 11:59 PM EST Hospital Encounter [facility] [address] [place] [address] Morbid (severe) obesity due to excess calories (CMS/HCC) Discharge Disposition: Home or Self Care 06/10/2024 1:30 PM EST - 06/10/2024 11:59 PM EST Hospital Encounter [facility] [address] [place] [phone] Anemia due to vitamin B12 deficiency, unspecified B12 deficiency type (Primary Dx) Discharge Disposition: Home or Self Care 06/04/2024 Telephone [facility] [address] [place] [address] 2nd [place] [phone] Reji Hernandez MD from Last 3 [...] Arthritis Joint pain Lupus (systemic lupus erythematosus) (CMS/HCC) Social History Tobacco Use Types Packs/Day Years [...] Visit Bariatric Surgery [facility] [address] [phone] Ana Lilia Bruce PA [address] [place] [phone] 09/09/2024 10:00 AM EST Office Visit [facility] [address] [place] [phone] Reji Hernandez MD [address] [place] [address] 09/23/2024 11:30 AM EDT Office Visit Bariatric Surgery [facility] [address] [phone] Ana Lilia Bruce PA [address] [place] [address] 09/30/2024 1:30 PM EDT Appointment [facility] [address] [facility] [address] [place] [phone] Health Maintenance Due Date Last Done Comments [...] this topic Medical Devices Implanted Type Area Pin Sticker Device Identifier Shelf Expiration Date Model / Serial / Lot Bone Pin Right: Hip Procedures Procedure Name Priority Date/Time Associated Diagnosis Comments CBC WITH AUTO DIFFERENTIAL Routine 09/02/2024 1:23 PM EST Anemia, unspecified type VITAMIN B12 Routine 09/02/2024 1:23 PM EST Anemia, unspecified type IRON AND TIBC Routine 09/02/2024 1:23 PM EST Anemia, unspecified type FERRITIN Routine 09/02/2024 1:23 PM EST Anemia, unspecified type CBC AND DIFFERENTIAL Routine 09/02/2024 1:23 PM EST Anemia, unspecified type CBC WITH AUTO DIFFERENTIAL Routine 07/28/2024 8:49 [...] ENDOTRACHEAL(NO CHARGE) Routine 07/26/2024 7:54 AM EST [place] LAP SURG GASTRIC REST PROC W GSTR [...] (severe) obesity due to excess calories (CMS/HCC) LIPID PANEL Routine 09/11/2023 from Last 3 Months or Most Recently Relevant to Health Maintenance Results * (ABNORMAL) CBC auto differential (09/02/2024 1:23 PM EST) Only the most recent of4 resultswithin the time period is included. WBC 5.6 4.8 - 10.8 K/mcL LAB HEMETOLOGY METHOD 09/02/2024 2:21 PM [facility] RBC 4.10 3.80 - 4.80 M/mcL LAB HEMETOLOGY METHOD 09/02/2024 2:21 PM [facility] Hemoglobin 11.9 11.5 - 16.0 g/dL LAB HEMETOLOGY METHOD 09/02/2024 2:21 PM [facility] Hematocrit 36.4 35.0 - 47.0 % LAB HEMETOLOGY METHOD 09/02/2024 2:21 PM [facility] MCV 89.2 79.0 - 98.0 FL LAB HEMETOLOGY METHOD 09/02/2024 2:21 PM [facility] MCH 29.2 27.0 - 32.0 pcg LAB HEMETOLOGY METHOD 09/02/2024 2:21 PM [facility] MCHC 32.7 32.0 - 37.0 g/dL LAB HEMETOLOGY METHOD 09/02/2024 2:21 PM [facility] RDW 15.9(H) 11.0 - 15.0 % LAB HEMETOLOGY METHOD 09/02/2024 2:21 PM [facility] Platelets 237 130 - 400 K/mcL LAB HEMETOLOGY METHOD 09/02/2024 2:21 PM [facility] MPV 11.7(H) 7.0 - 11.0 FL LAB HEMETOLOGY METHOD 09/02/2024 2:21 PM [facility] NRBC 0.0 <1.0 % LAB HEMETOLOGY METHOD 09/02/2024 2:21 PM [facility] NRBC Absolute 0.00 <0.10 K/mcL LAB HEMETOLOGY METHOD 09/02/2024 2:21 PM [facility] Neutrophils Relative 63.3 % LAB HEMETOLOGY METHOD 09/02/2024 2:21 PM [facility] Lymphocytes Relative 23.8 % LAB HEMETOLOGY METHOD 09/02/2024 2:21 PM [facility] Monocytes Relative 9.3 % LAB HEMETOLOGY METHOD 09/02/2024 2:21 PM [facility] Eosinophils Relative 2.3 % LAB HEMETOLOGY METHOD 09/02/2024 2:21 PM [facility] Basophils Relative 0.9 % LAB HEMETOLOGY METHOD 09/02/2024 2:21 PM [facility] Immature Granulocytes Relative 0.4 % LAB HEMETOLOGY METHOD 09/02/2024 2:21 PM EST [facility] Neutrophils Absolute 3.53 1.50 - 7.00 K/mcL LAB HEMETOLOGY METHOD 09/02/2024 2:21 PM [facility] Lymphocytes Absolute 1.33 1.00 - 5.00 K/mcL LAB HEMETOLOGY METHOD 09/02/2024 2:21 PM EST [facility] Monocytes Absolute 0.52 0.20 - 1.00 K/mcL LAB HEMETOLOGY METHOD 09/02/2024 2:21 PM [facility] Eosinophils Absolute 0.13 0.00 - 0.50 K/mcL LAB HEMETOLOGY METHOD 09/02/2024 2:21 PM [facility] Basophils Absolute 0.05 0.00 - 0.20 K/mcL LAB HEMETOLOGY METHOD 09/02/2024 2:21 PM [facility] Immature Granulocytes Absolute 0.02 0.00 - 0.03 K/mcL LAB HEMETOLOGY METHOD 09/02/2024 2:21 PM [facility] Blood Venous blood specimen / Unknown Venipuncture / Unknown 09/02/2024 1:23 PM EST 09/02/2024 1:36 PM EST us Reji Hernandez MD LAB BLOOD ORDERABLES Final R esult [facility] [address] [place] [address], * (ABNORMAL) Iron and TIBC (09/02/2024 1:23 PM EST) Iron 36(L) 40 - 150 mcg/dL LAB CHEMISTRY METHOD 09/02/2024 2:07 PM EST [facility] TIBC 187(L) 250 - 450 mcg/dL LAB CHEMISTRY METHOD 09/02/2024 2:07 PM EST [facility] Iron Saturation 19 15 - 50 % LAB CHEMISTRY METHOD 09/02/2024 2:07 PM EST [facility] Blood Venous blood specimen / Unknown Venipuncture / Unknown 09/02/2024 1:23 PM EST 09/02/2024 1:37 PM EST Reji Hernandez MD LAB BLOOD ORDERABLES Final R esult Performing Organization Address City/Va Hospital/ZIP Co de Phone Number [facility] [address] [place] [address], [place] [phone] * Ferritin (09/02/2024 1:23 PM EST) [facility] Ferritin 22 8 - 252 ng/mL LAB CHEMISTRY METHOD 09/02/2024 2:32 PM EST [facility] Blood Venous blood specimen / Unknown Venipuncture / Unknown 09/02/2024 1:23 PM EST 09/02/2024 1:37 PM EST us Reji Hernandez MD LAB BLOOD ORDERABLES Final R esult Performing Organization Address [facility] Hospital/[facility] Co de Phone Number [facility] [address] [place] [address], [place] [phone] * (ABNORMAL) Vitamin B12 (09/02/2024 1:23 PM EST) [facility] Vitamin B-12 911(H) 250 - 900 pcg/mL LAB CHEMISTRY METHOD 09/02/2024 2:32 PM EST [facility] Blood Venous blood specimen / Unknown Venipuncture / Unknown 09/02/2024 1:23 PM EST 09/02/2024 1:37 PM EST us Reji Hernandez MD LAB BLOOD ORDERABLES Final R esult Performing Organization Address City/Va Hospital/ZIP Co de Phone Number [facility] [address] [place] [address], [place] [phone] * (ABNORMAL) Phosphorus (07/28/2024 8:49 AM EST) Phosphorus 2.4(L) 2.5 - 4.5 mg/dL LAB CHEMISTRY METHOD 07/28/2024 9:52 AM EST [facility] Blood Venous blood specimen / Unknown Venipuncture / Unknown 07/28/2024 8:49 AM EST 07/28/2024 9:04 AM EST Cassandra WESTON LAB BLOOD ORDERABLES Final Resu lt Performing Organization Address [facility]/Va Hospital/ZIP Co de Phone Number [facility] [address] [place] [address], [place] [phone] * (ABNORMAL) Magnesium (07/28/2024 8:49 AM EST) Only the most recent of2 resultswithin the time period is included. [facility] Signature Magnesium 1.8(L) 1.9 - 2.6 mg/dL LAB CHEMISTRY METHOD 07/28/2024 9:52 AM EST [facility] Blood Venous blood specimen / Unknown Venipuncture / Unknown 07/28/2024 8:49 AM EST 07/28/2024 9:04 AM EST Cassandra WESTON LAB BLOOD ORDERABLES Final Resu lt Performing Organization Address City/Va Hospital/ZIP Co de Phone Number [facility] [address] [place] [address], [place] [phone] * (ABNORMAL) Basic metabolic panel (07/28/2024 8:49 AM EST) Only the most recent of3 resultswithin the time period is included. Sodium 141 133 - 145 mmol/L LAB CHEMISTRY METHOD 07/28/2024 9:52 AM EST [facility] Potassium 4.4 3.5 - 5.5 mmol/L LAB CHEMISTRY METHOD 07/28/2024 9:52 AM [facility] Chloride 112(H) 96 - 110 mmol/L LAB CHEMISTRY METHOD 07/28/2024 9:52 AM [facility] CO2 21 21 - 32 mmol/L LAB CHEMISTRY METHOD 07/28/2024 9:52 AM [facility] Anion Gap 8 3 - 11 LAB CHEMISTRY METHOD 07/28/2024 9:52 AM [facility] Glucose 76 70 - 100 mg/dL LAB CHEMISTRY METHOD 07/28/2024 9:52 AM [facility] BUN 20 5 - 25 mg/dL LAB CHEMISTRY METHOD 07/28/2024 9:52 AM [facility] Creatinine 1.30(H) 0.50 - 1.10 mg/dL LAB CHEMISTRY METHOD 07/28/2024 9:52 AM [facility] eGFR 53(L) >=60 mL/min/1. 73m2 LAB CHEMISTRY METHOD 07/28/2024 9:52 AM [facility] Comment:Calculation based on the??Chronic Kidney Disease Epidemiology Collaboration (CKD-EPI) equation refit??without adjustment for race. BUN/Creatinine Ratio 15.4 LAB CHEMISTRY METHOD 07/28/2024 9:52 AM [facility] Calcium 8.2(L) 8.5 - 10.5 mg/dL LAB CHEMISTRY METHOD 07/28/2024 9:52 AM [facility] Blood Venous blood specimen / Unknown Venipuncture / Unknown 07/28/2024 8:49 AM EST 07/28/2024 9:04 AM EST us Cassandra WESTON LAB BLOOD ORDERABLES Final Resu lt [facility] [address] [place] [address], * TH AN ENDOTRACHEAL(NO CHARGE) (07/26/2024 7:54 AM EST) Radha Joyner CRNA - 07/26/2024 7:54 AM EST Radha Lacey CRNA ? 07/26/2024 ??7:55 AM General Information and Staff Patient location during procedure: OR Anesthesiologist: Tameka Gibson MD Resident/DAIRY HELPER: Radha Lacey CRNA Performed: resident/DAIRY HELPER/CAA Performed by: Radha Lacey CRNA Authorized by: [...] 07/26/2024 7:54 AMStop Time: 07/26/2024 7:54 AM us Tameka Gibson MD ANESTHESIA ORDERABLES Final Resu lt * (ABNORMAL) Urinalysis with reflex microscopic and culture (07/15/2024 11:38 AM EST) Specific [place] Urine 1.013 1.003 - 1.030 LAB URINALYSIS - AUTOMATED METHOD 07/15/2024 12:27 PM [facility] pH, Urine 5.0 5.0 - 8.0 pH LAB URINALYSIS - AUTOMATED METHOD 07/15/2024 12:27 PM [facility] Leukocytes, Urine Small(A) Negative LAB URINALYSIS - AUTOMATED METHOD 07/15/2024 12:27 PM [facility] Nitrite, Urine Negative Negative LAB URINALYSIS - AUTOMATED METHOD 07/15/2024 12:27 PM [facility] Protein, Urine 100(A) <=Trace mg/dL LAB URINALYSIS - AUTOMATED METHOD 07/15/2024 12:27 PM [facility] Glucose, Urine Negative Negative mg/dL LAB URINALYSIS - AUTOMATED METHOD 07/15/2024 12:27 PM [facility] Ketones, Urine Negative Negative mg/dL LAB URINALYSIS - AUTOMATED METHOD 07/15/2024 12:27 PM [facility] Urobilinogen, Urine 0.2 0.2 - 1.0 mg/dL LAB URINALYSIS - AUTOMATED METHOD 07/15/2024 12:27 PM [facility] Bilirubin, Urine Negative Negative LAB URINALYSIS - AUTOMATED METHOD 07/15/2024 12:27 PM [facility] Blood, Urine Trace(A) Negative LAB URINALYSIS - AUTOMATED METHOD 07/15/2024 12:27 PM [facility] RBC, Urine 2.8 0 - 4 /HPF LAB URINALYSIS - AUTOMATED METHOD 07/15/2024 12:27 PM [facility] WBC, Urine 40.5(H) 0 - 4 /HPF LAB URINALYSIS - AUTOMATED METHOD 07/15/2024 12:27 PM [facility] Squamous Epithelial, Urine 21 0 - 60 /LPF LAB URINALYSIS - AUTOMATED METHOD 07/15/2024 12:27 PM [facility] Bacteria, Urine Negative Negative /HPF LAB URINALYSIS - AUTOMATED METHOD 07/15/2024 12:27 PM [facility] Hyaline Casts, Urine 1.2 0 - 3 /LPF LAB URINALYSIS - AUTOMATED METHOD 07/15/2024 12:27 PM [facility] Urine Urine specimen obtained by clean catch procedure / Unknown Non-blood Collection / Unknown 07/15/2024 11:38 AM EST 07/15/2024 12:14 PM EST us Ana Lilia WESTON LAB URINE ORDERABLES Final R esult Performing Organization Address City/Va Hospital/ZIP Co de Phone Number [facility] [address] [place] [address], [place] [phone] * Dorsey urine culture tube (07/15/2024 11:38 AM EST) Extra Tube Hold for add-ons. 07/15/2024 2:01 PM EST [facility] Comment:Auto resulted. Urine Urine specimen obtained by clean catch procedure / Unknown Non-blood Collection / Unknown 07/15/2024 11:38 AM EST 07/15/2024 12:14 PM EST us Ana Lilia WESTON LAB URINE ORDERABLES Final R esult Performing Organization Address [facility] Hospital/[facility] Co de Phone Number [facility] [address] [place] [address], [place] [phone] * Prothrombin time with INR (07/15/2024 11:38 AM EST) Pathologist [facility] Protime 12.3 10.6 - 13.9 sec LAB COAGULATION METHOD 07/15/2024 12:26 PM EST [facility] INR 1.0 LAB COAGULATION METHOD 07/15/2024 12:26 PM EST [facility] Blood Venous blood specimen / Unknown Venipuncture / Unknown 07/15/2024 11:38 AM EST 07/15/2024 12:14 PM EST us Ana Lilia WESTON LAB BLOOD ORDERABLES Final R esult Performing Organization Address [facility] Hospital/ZIP Co de Phone Number [facility] [address] [place] [address], [place] [phone] * Type and screen (07/15/2024 11:38 AM EST) ABO Group A 07/15/2024 2:07 PM EST [facility] Rh Type Positive 07/15/2024 2:07 PM EST [facility] Antibody Screen Negative 07/15/2024 2:07 PM EST [facility] Blood Venous blood specimen / Unknown Venipuncture / Unknown 07/15/2024 11:38 AM EST 07/15/2024 12:14 PM EST us Ana Lilia WESTON LAB BLOOD BANK TEST ORDERABL ES Final Result Performing Organization Address [facility] Hospital/ZIP Co de Phone Number [facility] [address] [place] [address], [place] [phone] * Culture urine (07/15/2024 11:38 AM EST) [facility] Culture, Urine 10,000-49,000 CFU/mL Mixed urogenital bela, no uropathogens present. Suggest repeat specimen if clinically indicated. 07/16/2024 9:24 AM EST [facility] Urine Urine specimen obtained by clean catch procedure / Unknown Non-blood Collection / Unknown 07/15/2024 11:38 AM EST 07/15/2024 12:27 PM EST us Ana Lilia WESTON LAB MICROBIOLOGY - GENERAL O RDERABLES Final Result [facility] [address] [place] [address], [place] [phone] * ECG 12 lead (07/15/2024 11:30 AM EST) Ventricular Rate ECG 52 BPM GEMUSE Atrial Rate 52 BPM GEMUSE P-R Interval 136 ms GEMUSE QRS Duration 70 ms GEMUSE Q-T Interval 398 ms GEMUSE QTc 370 ms GEMUSE P Wave Dodson 23 degrees GEMUSE R Dodson 6 degrees GEMUSE T Dodson 23 degrees GEMUSE ECG Interpretation Sinus bradycardia Low voltage QRS Borderline ECG No previous ECGs available Confirmed by POWER GONZALES ([id number]) on 07/15/2024 4:46:00 PM GEMUSE 07/15/2024 11:3 0 AM EST 07/15/2024 4:46 PM EST Ana Lilia WESTON ECG ORDERABLES Final Result GEMUSE * XR Chest 2 Views (06/27/2024 8:46 AM EST) Anatomical Region Laterality Modality Body Radiographic Simran ging 06/27/2024 9:01 AM EST Impressions 06/27/2024 9:02 AM EST Normal examination of the chest. Code 11188 -------- FINAL REPORT -------- Dictated By: Alex Rolle Dictated Date: 06/27/2024 09:01 ET Assigned Physician: Alex Rolle Reviewed and Electronically Signed By: Alex Rolle Signed Date: 06/27/2024 09:02 ET Workstation ID: [id number] Transcribed By: Self Edit Transcribed Date: 06/27/2024 [...] IMPRESSION: Normal examination of the chest. Code 30226 -------- FINAL REPORT -------- Dictated By: Alex Rolle Dictated Date: 06/27/2024 09:01 ET Assigned Physician: Alex Rolle Reviewed and Electronically Signed By: Alex Rolle Signed Date: 06/27/2024 09:02 ET Workstation ID: [id number] Transcribed By: Self Edit Transcribed Date: 06/27/2024 09:01 ET Ana Lilia WESTON IMG XR PROCEDURES Final Resu lt * Lipid panel (09/11/2023) LDL/HDL Ratio 3 0 - 4 Triglycerides 129 0 - 150 mg/dL Cholesterol 159 0 - 200 mg/dL HDL 47 >=40 mg/dL LDL Cholesterol 87 0 - 100 mg/dL Blood Venous blood specimen / Unknown Historical Provider LAB BLOOD ORDERABLES Sonam l Result from Last 3 Months or Most Recently Relevant to Health Maintenance Insurance [facility] [employer] Care Teams Title Processor Relationship Specialty Start Date End Date Delores Silva MD [address] [place] [address] , [address] [facility] D/B/A: [facility]jandra [facility] [place] PCP - General Internal Medicine 02/09/22
--- OUTSIDE RECORDS SUMMARY | 2024-09-04 16:17 | XMS_ITS | Encounter Summary ---
Author Organization [facility] Address [address] [place] [address] Care Team Providers Care Oyster Unloader Name Role Phone Delores Silva MD Primary Care Provider [phone] Reason for Visit * Reason Comments Post-op Visit 2 weeks Encounter Details Date Type Department Care Team ([facility] st Contact Info) Description 08/19/2024 3:45 PM EST Office Visit Bariatric Surgery - [place] 175 [facility] [address] [place] [phone] Ana Lilia Bruce PA 271 [facility] [address] [place] [address] Class 3 severe obesity due to excess [...] to gastric bypass with Dr. Ontiveros at [facility] on 07/26/2024. - 4 lbs since has [...] index (BMI) of40.0 to 44.9 in adult ([facility]) Morbid (severe) obesity due to excess calories ([facility]) HTN (hypertension) Chronic renal insufficiency Bariatric surgery [...] index (BMI)of 40.0 to 44.9 in adult ([facility]) 2. Bariatric surgery status PLAN: 1. Obesity - Continue to advance diet in accordance with post op francisco javier protocol Continue to monitor protein intake - 60-80g daily Follow up with piercer Continue daily vit Follow up in 4-6 weeks Medication and lab orders: No orders of the defined types were placed in this encounter. Other orders: None cc: Delores Silva MD documented in this encounter Plan of Treatment Upcoming Encounters Date Type Department Care Team (Late st Contact Info) Description 09/05/2024 11:15 AM EST Office Visit Bariatric Surgery [facility] [address] [address] Ana Lilia Bruce PA [address] [address] 09/09/2024 10:00 AM EST Office Visit [facility] Hematology Oncology 271 [place] [address] Reji Hernandez MD 271 [place] [address] 09/23/2024 11:30 AM EDT Office Visit Bariatric Surgery - [place] [address] [phone] Ana Lilia Bruce PA [address] [phone] 09/30/2024 1:30 PM EDT Appointment [facility] Infusion Center 271 [facility] 2nd [place] [address] documented as of this encounter Visit Diagnoses Diagnosis Class 3 severe obesity due to excess calories with serious comorbidity and body mass index (BMI) of 40.0 to 44.9 in adult ([facility])- Primary Bariatric surgery status documented in this encounter Care Teams Oyster Unloader Relationship Specialty Start Date End Date Delores Silva MD [address] [place] [address] , [address] [facility] Physician Associ D/B/A: [facility] [place] PCP - General Internal Medicine 02/09/22 documented as of this encounter
--- OUTSIDE RECORDS SUMMARY | 2024-09-04 16:17 | XMS_ITS | Encounter Summary ---
Author Organization [facility] Address [address] [place] [address] Care Team Providers Care Manager Administration Name Role Phone Delores Silva MD Primary Care Provider [phone] Reason for Visit * Reason Comments Obesity Encounter Details Date Type Department Care Team ([facility] Contact Info) Description 08/26/2024 12:30 PM EST Nutrition Bariatric Surgery - [place] 175 [facility] 120 [place] [phone] Ruth Moore, RD [address] [address] Class 3 severe obesity with body mass [...] fullness Ideas: hummus, tuna, chicken salad, nuts * Ruth Moore RD - 08/26/2024 12:30 PM EST NUTRITION FOLLOW-UP NOTE: Patient Name: Diane Vides Date of : 1985 Date of Service: 08/26/2024 SURGEON: Dr. April Gonzalez Pt presents sick Pt presents with two children Kidney problems due to lupus, reports no protein guidance from pattern illustrator and reports kidney function is improving DESIRED SURGERY: s/p sleeve to bypass revision 07/26/24 CHIEF COMPLAINT: Obesity HISTORY: Diane Vides is a 38 y.o. female who presents for nutrition visit for post op bariatric surgery. This is their 1 visit. Ht Readings from Last 1 Encounters: 08/19/24 1.626 m (64 ) Wt Readings from Last 4 Encounters: 08/26/24 109 kg (240 lb) 08/19/24 110 kg (243 lb 3.2 oz) 08/08/24 112 kg (247 lb 9.6 oz) 07/26/24 115 kg (254 lb) Body mass index is 41.2 kg/m??. Wt before surgery: 254 Wt change since surgery: -14 EBW = current - wt at BMI of 25: 240-145=95 Challenges: sick, not enough fluids, low energy Changes since last visit: n/a EATING HABITS/DIET RECALL: Breakfast: eggs Lunch: beans Dinner: meat Snacks: polish yogurt Beverages: water 1 bottle MVI: patch daily Exercise: hx of knee pain, did not discuss today as pt reports being sick and low in energy ALLERGIES: Allergies Allergen Reactions Metformin Other Gums red and swollen Nutrition diagnosis: Class III obesity related to predicted inadequate protein intake and predictedinadequate fluid intakeas evidenced by BMI of 41.2 Patient-created Goals: Protein goal: 60-80g daily Tracking protein- use handout provided Fluid goal: 48-64 ounces daily, slowly sip, set reminders Eat slowly chew well, eat slowly Continue to stop at the first sign of fullness Ideas: hummus, tuna, chicken salad, nuts Literature Provided: Protein handout, Pt centered goals, and RD contact information Interventions: Post op bariatric surgery nutrition troubleshooting Nutrition assessment: Pt is 38 y.o. female with h/o has a past medical history of Anemia, Anxiety, Arthritis, Depression, Hypertension, Hypothyroidism, Joint pain, and Lupus (systemic lupus erythematosus) (CMS/HCC). Class III obesity Stage of change/Barriers to understanding: Pt is open to RD suggestions no barriers to understanding Monitoring/Evaluation: monitor weight and monitor progress toward nutrition goals RD to see patient for follow-up nutrition visit in 2 months Visit Time: The total time of this visit was 30 minutes of which we spent 30 minutes (>50% of the time spent) in direct [id number]-exwr consultation for counseling, reviewing medical record and/or coordinating the plan as described above. Ruth Moore RD NUTRITION SERVICES Cosigned by Anaid Ontiveros MD at 08/28/2024 4:46 PM EST documented in this encounter Plan of Treatment Upcoming Encounters Date Type Department Care Team (Late st Contact Info) Description 09/05/2024 11:15 AM EST Office Visit Bariatric Surgery [facility] [address] [phone] Ana Lilia Bruce PA [address] [address] 09/09/2024 10:00 AM EST Office Visit [facility] Hematology Oncology 271 [place] [address] Reji Hernandez MD 271 [place] [address] 09/23/2024 11:30 AM EDT Office Visit Bariatric Surgery - [place] [address] [phone] Ana Lilia Bruce PA 271 [facility] [address] [place] [address] 09/30/2024 1:30 PM EDT Appointment [facility] Infusion Center 271 [facility] 2nd [place] [address] documented as of this encounter Visit Diagnoses Diagnosis Class 3 severe obesity with body mass index (BMI) of 40.0 to 44.9 in adult, unspecified obesity type, unspecified whether serious comorbidity present (CMS/HCC)- Primary documented in this encounter Care Teams Manager Administration Relationship Specialty Start Date End Date Delores Silva MD 2 [facility] , [facility] 101 [facility] Physician Associ D/B/A: [facility] [place] PCP - General Internal Medicine 02/09/22 documented as of this encounter
--- OUTSIDE RECORDS SUMMARY | 2024-09-04 16:17 | XMS_ITS | Encounter Summary ---
Author Organization [facility] Address [address] [place] [address] Care Team Providers Care Watch Crystal Molder Name Role Phone Delores Silva MD Primary Care Provider [phone] Reason for Visit * Reason Comments Post-op Visit Sleeve to Bypass 07/10 Encounter Details Date Type Department Care Team ([facility] st Contact Info) Description 08/08/2024 11:15 AM EST Office Visit Bariatric Surgery - [place] 175 [facility] [address] [place] [phone] Ana Lilia Bruce PA 271 [facility] [address] [place] [address] Class 3 severe obesity due to excess [...] to gastric bypass with Dr. Ontiveros at [facility] on 07/26/2024. She is doing well [...] index (BMI) of40.0 to 44.9 in adult ([facility]) Morbid (severe) obesity due to excess calories ([facility]) HTN (hypertension) Chronic renal insufficiency Bariatric surgery [...] index (BMI)of 40.0 to 44.9 in adult ([facility]) 2. Bariatric surgery status Discussed appropriate use [...] 11:15 AM EST Office Visit Bariatric Surgery [facility] [address] [phone] Ana Lilia Bruce PA [address] [address] 09/09/2024 10:00 AM EST Office Visit [facility] Hematology Oncology [address] [place] [phone] Reji Hernandez MD 271 [place] [address] 09/23/2024 11:30 AM EDT Office Visit Bariatric Surgery [facility] [address] [phone] Ana Lilia Bruce PA [address] [address] 09/30/2024 1:30 PM EDT Appointment [facility] Infusion Center [address] [place] [address] 2[address] [place] [phone] documented as of this encounter Visit Diagnoses Diagnosis Class 3 severe obesity due to excess calories with serious comorbidity and body mass index (BMI) of 40.0 to 44.9 in adult ([facility])- Primary Bariatric surgery status documented in this encounter Care Teams Watch Crystal Molder Relationship Specialty Start Date End Date Delores Silva MD [address] [place] [address] Physician Associ D/B/A: [facility] [place] PCP - General Internal Medicine 02/09/22 documented as of this encounter
--- OUTSIDE RECORDS SUMMARY | 2024-09-04 16:17 | XMS_ITS | Encounter Summary ---
Author Organization [facility] Address [address] [place] [address] Care Team Providers Care Continuous Crusher Operator Name Role Phone Delores Silva MD Primary Care Provider [phone] Reason for Visit * Reason Comments Injections B12 injection * Episode Based Medications (Routine) - Authorized Specialty Diagnoses / Procedures Referred By Contac t Referred To Contact Diagnoses Anemia due to vitamin B12 deficiency, unspecified B12 deficiency type Reji Hernandez MD 271 [place] [address] Phone: tel: fax: [address] [address] Phone: tel: fax: Referral ID Status Reason Start Date Expiration Date V isits Requested Visits Authorized [id number] Authorized 05/07/2024 05/07/2025 1 12 Encounter Details Date Type Department Care Team (Latest Contact Info) Description 08/05/2024 12:44 PM EST - 08/05/2024 11:59 PM EST Hospital Encounter [address] [phone] Reji Hernandez MD 271 [place] [address] Anemia due to vitamin B12 deficiency, unspecified [...] AM EST Office Visit Bariatric Surgery - [place] 175 [facility] [address] [place] [address] Ana Lilia Bruce PA [address] [address] 09/09/2024 10:00 AM EST Office Visit [facility] Hematology Oncology 271 [place] [phone] Reji Hernandez MD 271 [place] [address] 09/23/2024 11:30 AM EDT Office Visit Bariatric Surgery - [place] [address] [phone] Ana Lilia Bruce PA [address] [phone] 09/30/2024 1:30 PM EDT Appointment [facility] Infusion Center 271 [facility] 2nd [place] [phone] documented as of this encounter Visit Diagnoses [...] Ordered Date ONCBCN INFUSION APPOINTMENT REQUEST 04 1 documented in this encounter Care Teams Continuous Crusher Operator Relationship Specialty Start Date End Date eDlores Silva MD [address] [place] [address] , [address] Physician Associ D/B/A: [facility] [place] PCP - General Internal Medicine 02/09/22 documented as of this encounter
== END 2024-09-04 13:57 | disposition home or self-care (01) ==
PROVIDERS: PCP Internal Medicine
DX: M79.89 Other specified soft tissue disorders (principal); N18.32 Chronic kidney disease, stage 3b; M32.9 Systemic lupus erythematosus, unspecified

== ENCOUNTER 2024-09-04 13:16 | Outpatient (REF) | payer OTHER, SELFPAY ==
[2024-09-04 14:16] LABS: MANUAL DIFF FLAG NO
[2024-09-04 14:43] LABS: Basophils Percent Auto 0.7 % (0-2); Eosinophils Absolute Auto 0.1 X10*3/uL (0.0-0.4); Eosinophils Percent Auto 1.9 % (0-4); Hematocrit 34.8 % (37.0-47.0); Hemoglobin 12.3 g/dl (12.0-16.0); Imm Gran Abs Auto 0.03 X10*3/uL (0.00-0.03); Imm Gran Pct Auto 0.5 % (0.0-0.4); Lymphocytes Absolute Auto 1.3 X10*3/uL (1.2-4.9); Mean Corpuscular HGB Conc 35.3 g/dl (31.0-35.0); Mean Corpuscular Hemoglobin 30.1 pg (27.0-33.0); Mean Corpuscular Volume 85.1 fL (80.0-98.0); Mean Platelet Volume 11.2 fL (9.4-12.3); Monocytes Absolute Auto 0.5 X10*3/uL (0.1-1.2); Monocytes Percent Auto 8.4 % (2-11); Neutrophils Absolute Auto 3.8 x10*3/uL (2.0-8.3); Neutrophils Percent Auto 65.5 % (45-73); Platelet Count 264 X10*3/uL (160-400); Red Blood Count 4.09 X10*6/uL (4.20-5.50); White Blood Count 5.8 X10*3/uL (4.8-10.8)
[2024-09-04 14:46] LABS: Appearance Urine Clear; Color Urine Yellow; Glucose Urine UA Negative (Negative); Leukocyte Esterase Urine Trace (Negative); Nitrite Urine Negative (Negative); PH 5.5 (5.0-9.0); Specific Gravity - Urine 1.025 (1.005-1.025); UMIC TRIGGER UACC YES; Urine Blood Trace (Negative); Urine Ketones Trace mg/dL (Negative); Urine Protein 30 (1+) mg/dL (Neg-Trace)
[2024-09-04 14:51] LABS: Bacteria Urine 1+ (None Seen); RBC Urine 0-2 /HPF (0-2); UACC Culture Trigger YES; WBC Urine 21-50 /HPF (0-5)
[2024-09-04 15:14] LABS: B Type Natriuretic Peptide 205 pg/mL (<100)
[2024-09-04 15:15] LABS: Alanine Aminotransferase 14 U/L (0-31); Albumin Level 3.2 g/dL (3.5-5.0); Alkaline Phosphatase 91 U/L (39-117); Anion Gap 10 (12-20); Aspartate Amino Transferase 19 U/L (5-31); Bilirubin Total 0.3 mg/dL (0.0-1.0); Blood Urea Nitrogen 8 mg/dL (9-16); Calcium 8.3 mg/dL (8.4-10.2); Carbon Dioxide 24 mmol/L (22-29); Chloride 113 mmol/L (96-108); Estimated Glomerular Filt Rate > 60; Glucose Fasting 87 mg/dL (60-99); Potassium 3.7 mmol/L (3.3-5.1); Sodium 143 mmol/L (135-145); Total Protein 6.3 g/dL (6.5-8.0)
[2024-09-04 15:29] LABS: Free T4 (Free Thyroxine) 0.99 ng/dL (0.71-1.85)
--- OUTSIDE RECORDS SUMMARY | 2024-09-04 17:17 | XMS_ITS | Clinical Summary ---
Author Organization [employer] Address [address] [facility] 7t [place] [address] Care Team Providers Care Transplant Nurse Practitioner Name Role Phone Unavailable Primary Care Provider Unavailabl e Encounters Date Type Department Care Team Description 06/21/2024 9:00 AM EST Office Visit [facility] OPTOMETRY [address] [place] [address] Martell, Lamar, OD Myopia of both eyes [...] patient's age to complete this topic Insurance [facility] A[facility]
--- OUTSIDE RECORDS SUMMARY | 2024-09-04 17:17 | XMS_ITS | Clinical Summary ---
Author Organization [facility] Address [address] [place] [address] Care Team Providers Care Oil Prospecting Observer Name Role Phone Delores Mancia MD Primary [...] age to complete this topic Care Teams Oil Prospecting Observer Relationship Specialty Start Date End Date Delores Mancia MD 2 [facility] , [address] [facility] Physician Associ D/B/A: [facility] [place] [address] PCP - General Internal Medicine 12/13/23
--- OUTSIDE RECORDS SUMMARY | 2024-09-04 17:17 | XMS_ITS | Encounter Summary ---
Author Organization [facility] Address [address] [place] [address] Care Team Providers Care Ship Captain Name Role Phone Delores Silva MD Primary Care Provider [phone] Encounter Details Date Type Department Care Team [...] 11:15 AM EST Office Visit Bariatric Surgery [facility] [address] [phone] Ana Lilia Bruce PA [address] [address] 09/09/2024 10:00 AM EST Office Visit [facility] Hematology Oncology [address] [place] [phone] Reji Hernandez MD 271 [place] [address] 09/23/2024 11:30 AM EDT Office Visit Bariatric Surgery [facility] [address] [phone] Ana Lilia Bruce PA [address] [place] [address] 09/30/2024 1:30 PM EDT Appointment [facility] Infusion Center [address] [place] [phone] documented as of this encounter Visit Diagnoses Not on filedocumented in this encounter Care Teams Ship Captain Relationship Specialty Start Date End Date Delores Silva MD [address] [place] [address] , [address] Physician Associ D/B/A: [facility] [place], [place] PCP - General Internal Medicine 02/09/22 documented as of this encounter
--- OUTSIDE RECORDS SUMMARY | 2024-09-04 17:17 | XMS_ITS | Encounter Summary ---
Author Organization [facility] Address [address] [address] Phone Care Team Providers Care Tap Builder Name Role Phone Delores Mancia MD Primary Care Provider [phone] Encounter Details Date Type Department Care Team (Late st Contact Info) Description 07/11/2024 Office Communication [facility] [address] [address] Zoey Cuevas [address] [address] Social History Tobacco Use Types [...] Office Visit [facility] [address] [place] [address] Darci Gamble MD [address] [address] documented as of this encounter Visit Diagnoses Not on filedocumented in this encounter Care Teams Tap Builder Relationship Specialty Start Date End Date Delores Mancia MD [address] [facility] [address] [place], [place] PCP - General 07/20/20 documented as of this encounter
--- OUTSIDE RECORDS SUMMARY | 2024-09-04 17:18 | XMS_ITS | Encounter Summary ---
Author Organization [facility] Address [address] [place] [address] Care Team Providers Care Optical Sales Associate Name Role Phone Delores Silva MD Primary Care Provider [phone] Reason for Visit * Reason Comments Post-op Visit 2 weeks Encounter Details Date Type Department Care Team ([facility] st Contact Info) Description 08/19/2024 3:45 PM EST Office Visit Bariatric Surgery - [place] 175 [facility] [address] [place] [phone] Ana Lilia Bruce PA 271 [facility] [address] [place] [address] Class 3 severe obesity due to excess [...] to gastric bypass with Dr. Ontiveros at [facility] on 07/26/2024. - 4 lbs since [...] index (BMI) of40.0 to 44.9 in adult ([facility]) Morbid (severe) obesity due to excess calories ([facility]) HTN (hypertension) Chronic renal insufficiency Bariatric [...] intake - 60-80g daily Follow up with carpenters Continue daily vit Follow up in 4-6 weeks Medication and lab orders: No orders of the defined types were placed in this encounter. Other orders: None cc: Delores Silva MD documented in this encounter Plan of Treatment Upcoming Encounters Date Type Department Care Team (Late st Contact Info) Description 09/05/2024 11:15 AM EST Office Visit Bariatric Surgery [facility] [address] [phone] Ana Lilia Bruce PA [address] [address] 09/09/2024 10:00 AM EST Office Visit [facility] Hematology Oncology 271 [place] [address] Reji Hernandez MD 271 [place] [address] 09/23/2024 11:30 AM EDT Office Visit Bariatric Surgery - [place] [address] [phone] Ana Lilia Bruce PA [address] [phone] 09/30/2024 1:30 PM EDT Appointment [facility] Infusion Center 271 [facility] 2nd [place] [address] documented as of this encounter Visit Diagnoses Diagnosis Class 3 severe obesity due to excess calories with serious comorbidity and body mass index (BMI) of 40.0 to 44.9 in adult ([facility])- Primary Bariatric surgery status documented in this encounter Care Teams Optical Sales Associate Relationship Specialty Start Date End Date Delores Silva MD [address] [place] [address] , [address] [facility] Physician Associ D/B/A: [facility] [place] PCP - General Internal Medicine 02/09/22 documented as of this encounter
--- OUTSIDE RECORDS SUMMARY | 2024-09-04 17:18 | XMS_ITS | Encounter Summary ---
Author Organization [facility] Address [address] [place] [address] Care Team Providers Care Lead Instructor/Flight Attendant Name Role Phone Delores Silva MD Primary Care Provider [phone] Reason for Visit * Episode Based Medications (Routine) - Authorized Specialty Diagnoses / Procedures Referred By Contac t Referred To Contact Diagnoses Anemia due to vitamin B12 deficiency, unspecified B12 deficiency type Reji Hernandez MD 271 [place] [address] Phone: tel: fax: [address] [address] Phone: tel: fax: Referral ID Status Reason Start Date Expiration Date V isits Requested Visits Authorized [id number] Authorized 05/07/2024 05/07/2025 1 12 Encounter Details Date Type Department Care Team (Latest Contact Info) Description 09/02/2024 1:28 PM EST Hospital Encounter [address] [address] Reji Hernandez MD 271 [place] [address] Anemia due to vitamin B12 deficiency, unspecified [...] 11:15 AM EST Office Visit Bariatric Surgery [facility] [address] [phone] Ana Lilia Bruce PA [address] [address] 09/09/2024 10:00 AM EST Office Visit [facility] Hematology Oncology 271 [place] [phone] Reji Hernandez MD 271 [place] [address] 09/23/2024 11:30 AM EDT Office Visit [facility] Surgery - [facility] 175 [facility] [address] [place] [address] Ana Lilia Bruce PA 271 [facility] [address] [place] [address] 09/30/2024 1:30 PM EDT Appointment [facility] Infusion Center 271 [facility] 2nd [place] [phone] documented as of this encounter Visit Diagnoses [...] 04 documented in this encounter Care Teams Lead Instructor/Flight Attendant Relationship Specialty Start Date End Date Delores Silva MD [address] [place] [address] , [facility] 101 [facility] Physician Associ D/B/A: [facility] [place], [place] PCP - General Internal Medicine 02/09/22 documented as of this encounter
--- OUTSIDE RECORDS SUMMARY | 2024-09-04 17:18 | XMS_ITS | Clinical Summary ---
Author Organization [facility] Address [address] [place] [address] Phone Care Team Providers Care Wash Test Checker Name Role Phone Delores Silva MD Primary Care Provider [phone] Allergies Active Allergy Reactions Criticality Noted Date [...] Description 09/02/2024 1:28 PM EST Hospital Encounter [facility] Infusion Center [address] [facility] 2nd [place] [address] Reji Hernandez MD Anemia due to vitamin B12 deficiency, unspecified B12 deficiency type (Primary Dx) 08/26/2024 12:30 PM EST Nutrition Bariatric Surgery - [place] [address] [place] [address] Class 3 severe obesity with body mass index (BMI) of 40.0 to 44.9 in adult, unspecified obesity type, unspecified whether serious comorbidity present ([facility]) (Primary Dx) 08/19/2024 3:45 PM EST Office Visit Bariatric Surgery - [address] [phone] Ana Lilia Bruce PA Class 3 severe obesity due to excess calories with serious comorbidity and body mass index (BMI) of 40.0 to 44.9 in adult ([facility]) (Primary Dx); Bariatric surgery status 08/08/2024 11:15 AM EST Office Visit Bariatric Surgery - [address] [phone] Ana Lilia Bruce PA Class 3 severe obesity due to excess calories with serious comorbidity and body mass index (BMI) of 40.0 to 44.9 in adult ([facility]) (Primary Dx); Bariatric surgery status 08/05/2024 12:44 PM EST - 08/05/2024 11:59 PM EST Hospital Encounter [facility] [address] [place] [phone] Reji Hernandez MD Anemia due to vitamin B12 deficiency, unspecified B12 deficiency type (Primary Dx) Discharge Disposition: Home or Self Care 07/31/2024 Telephone Bariatric Surgery - [address] [phone] Loan Javier, RN 07/30/2024 Telephone Bariatric Surgery - [address] [phone] Loan Javier, RN 07/26/2024 7:41 AM EST Anesthesia Event [facility] Main OR [address] [place] [phone] Tameka Gibson MD 07/26/2024 7:30 AM EST - 07/26/2024 10:30 AM EST Surgery [facility] OR [address] [place] [phone] Anaid Ontiveros MD DAVINCI CONVERSION OF SLEEVE TO BYPASS [63927 (CPT??)] 07/26/2024 6:09 AM EST - 07/28/2024 2:38 PM EST Hospital Encounter [facility] Medical Surgical Unit [address] [place] [address] Anaid Ontiveros MD H/O gastric sleeve (Primary Dx) Discharge Disposition: Home or Self Care 07/24/2024 [place] [facility] [address] [phone] Loan Javier RN 07/16/2024 11:45 AM EST Consult Bariatric Surgery [address] [phone] Ana Lilia Bruce PA Class 3 severe obesity due to excess calories with serious comorbidity and body mass index (BMI) of 45.0 to 49.9 in adult (CMS/HCC) (Primary Dx); Gastroesophageal reflux disease, unspecified whether esophagitis present 07/08/2024 1:17 PM EST - 07/08/2024 11:59 PM EST Hospital Encounter [facility] In[facility] [address] [place] [phone] Anemia due to vitamin B12 deficiency, unspecified B12 deficiency type (Primary Dx) Discharge Disposition: Home or Self Care 06/27/2024 1:00 PM EST Telemedicine Bariatric Surgery [address] [phone] [address] Class 3 severe obesity with body mass index (BMI) of 45.0 to 49.9 in adult, unspecified obesity type, unspecified whether serious comorbidity present (CMS/HCC) (Primary Dx) 06/27/2024 8:35 AM EST - 06/27/2024 11:59 PM EST Hospital Encounter [facility] Xray [address] [place] [address] Morbid (severe) obesity due to excess calories (CMS/HCC) Discharge Disposition: Home or Self Care 06/10/2024 1:30 PM EST - 06/10/2024 11:59 PM EST Hospital Encounter [facility] In[facility] [address] [place] [phone] Anemia due to vitamin B12 deficiency, unspecified B12 deficiency type (Primary Dx) Discharge Disposition: Home or Self Care 06/04/2024 Telephone [facility] Infusion [facility] [address] [place] [address] 2nd [place] [address] Reji Hernandez MD from Last [...] 11:15 AM EST Office Visit Bariatric Surgery [facility] [address] [phone] Ana Lilia Bruce PA [address] [place] [address] 09/09/2024 10:00 AM EST Office Visit [facility] Hematology Oncology [address] [place] [phone] Reji Hernandez MD [address] [place] [address] 09/23/2024 11:30 AM EDT Office Visit Bariatric Surgery [facility] [address] [phone] Ana Lilia Bruce PA [address] [place] [address] 09/30/2024 1:30 PM EDT Appointment [facility] Infusion [facility] [address] 2[address] [place] [phone] Health Maintenance Due Date Last Done Comments [...] this topic Medical Devices Implanted Type Area Back Roller Device Identifier Shelf Expiration Date Model / [...] K/mcL LAB HEMETOLOGY METHOD 09/02/2024 2:21 PM [facility] RBC 4.10 3.80 - 4.80 M/mcL LAB HEMETOLOGY METHOD 09/02/2024 2:21 PM [facility] Hemoglobin 11.9 11.5 - 16.0 g/dL LAB HEMETOLOGY METHOD 09/02/2024 2:21 PM [facility] Hematocrit 36.4 35.0 - 47.0 % LAB HEMETOLOGY METHOD 09/02/2024 2:21 PM [facility] MCV 89.2 79.0 - 98.0 FL LAB HEMETOLOGY METHOD 09/02/2024 2:21 PM [facility] MCH 29.2 27.0 - 32.0 pcg LAB HEMETOLOGY METHOD 09/02/2024 2:21 PM [facility] MCHC 32.7 32.0 - 37.0 g/dL LAB HEMETOLOGY METHOD 09/02/2024 2:21 PM [facility] RDW 15.9(H) 11.0 - 15.0 % LAB HEMETOLOGY METHOD 09/02/2024 2:21 PM [facility] Platelets 237 130 - 400 K/mcL LAB HEMETOLOGY METHOD 09/02/2024 2:21 PM [facility] MPV 11.7(H) 7.0 - 11.0 FL LAB HEMETOLOGY METHOD 09/02/2024 2:21 PM [facility] NRBC 0.0 <1.0 % LAB HEMETOLOGY METHOD 09/02/2024 2:21 PM [facility] NRBC Absolute 0.00 <0.10 K/mcL LAB HEMETOLOGY METHOD 09/02/2024 2:21 PM [facility] Neutrophils Relative 63.3 % LAB HEMETOLOGY METHOD 09/02/2024 2:21 PM [facility] Lymphocytes Relative 23.8 % LAB HEMETOLOGY METHOD 09/02/2024 2:21 PM [facility] Monocytes Relative 9.3 % LAB HEMETOLOGY METHOD 09/02/2024 2:21 PM [facility] Eosinophils Relative 2.3 % LAB HEMETOLOGY METHOD 09/02/2024 2:21 PM [facility] Basophils Relative 0.9 % LAB HEMETOLOGY METHOD 09/02/2024 2:21 PM [facility] Immature Granulocytes Relative 0.4 % LAB HEMETOLOGY METHOD 09/02/2024 2:21 PM EST [facility] Neutrophils Absolute 3.53 1.50 - 7.00 K/mcL LAB HEMETOLOGY METHOD 09/02/2024 2:21 PM [facility] Lymphocytes Absolute 1.33 1.00 - 5.00 K/mcL LAB HEMETOLOGY METHOD 09/02/2024 2:21 PM EST [facility] Monocytes Absolute 0.52 0.20 - 1.00 K/mcL LAB HEMETOLOGY METHOD 09/02/2024 2:21 PM [facility] Eosinophils Absolute 0.13 0.00 - 0.50 K/mcL LAB HEMETOLOGY METHOD 09/02/2024 2:21 PM [facility] Basophils Absolute 0.05 0.00 - 0.20 K/mcL LAB HEMETOLOGY METHOD 09/02/2024 2:21 PM [facility] Immature Granulocytes Absolute 0.02 0.00 - 0.03 K/mcL LAB HEMETOLOGY METHOD 09/02/2024 2:21 PM [facility] Blood Venous blood specimen / Unknown Venipuncture / Unknown 09/02/2024 1:23 PM EST 09/02/2024 1:36 PM EST us Reji Hernandez MD LAB BLOOD ORDERABLES Final R esult [facility] [address] [place] [address], * (ABNORMAL) Iron and TIBC (09/02/2024 1:23 PM EST) Iron 36(L) 40 - 150 mcg/dL LAB CHEMISTRY METHOD 09/02/2024 2:07 PM EST [facility] TIBC 187(L) 250 - 450 mcg/dL LAB CHEMISTRY METHOD 09/02/2024 2:07 PM EST [facility] Iron Saturation 19 15 - 50 % LAB CHEMISTRY METHOD 09/02/2024 2:07 PM EST [facility] Blood Venous blood specimen / Unknown Venipuncture / Unknown 09/02/2024 1:23 PM EST 09/02/2024 1:37 PM EST Reji Hernandez MD LAB BLOOD ORDERABLES Final R esult Performing Organization Address City/[facility]/ZIP Co de Phone Number [facility] [address] [place] [address], [place] [phone] * Ferritin (09/02/2024 1:23 PM EST) [facility] Ferritin 22 8 - 252 ng/mL LAB CHEMISTRY METHOD 09/02/2024 2:32 PM EST [facility] Blood Venous blood specimen / Unknown Venipuncture / Unknown 09/02/2024 1:23 PM EST 09/02/2024 1:37 PM EST us Reji Hernandez MD LAB BLOOD ORDERABLES Final R esult Performing Organization Address [facility] Co de Phone Number [facility] [address] [place] [address], [place] [phone] * (ABNORMAL) Vitamin B12 (09/02/2024 1:23 PM EST) [facility] Vitamin B-12 911(H) 250 - 900 pcg/mL LAB CHEMISTRY METHOD 09/02/2024 2:32 PM EST [facility] Blood Venous blood specimen / Unknown Venipuncture / Unknown 09/02/2024 1:23 PM EST 09/02/2024 1:37 PM EST us Reji Hernandez MD LAB BLOOD ORDERABLES Final R esult Performing Organization Address City/[facility]/ZIP Co de Phone Number [facility] [address] [place] [address], [place] [phone] * (ABNORMAL) Phosphorus (07/28/2024 8:49 AM EST) Phosphorus 2.4(L) 2.5 - 4.5 mg/dL LAB CHEMISTRY METHOD 07/28/2024 9:52 AM EST [facility] Blood Venous blood specimen / Unknown Venipuncture / Unknown 07/28/2024 8:49 AM EST 07/28/2024 9:04 AM EST Cassandra WESTON LAB BLOOD ORDERABLES Final Resu lt Performing Organization Address [facility]/ZIP Co de Phone Number [facility] [address] [place] [address], [place] [phone] * (ABNORMAL) Magnesium (07/28/2024 8:49 AM EST) Only the most recent of2 resultswithin the time period is included. [facility] Signature Magnesium 1.8(L) 1.9 - 2.6 mg/dL LAB CHEMISTRY METHOD 07/28/2024 9:52 AM EST [facility] Blood Venous blood specimen / Unknown Venipuncture / Unknown 07/28/2024 8:49 AM EST 07/28/2024 9:04 AM EST Cassandra WESTON LAB BLOOD ORDERABLES Final Resu lt Performing Organization Address City/[facility]/ZIP Co de Phone Number [facility] [address] [place] [address], [place] [phone] * (ABNORMAL) Basic metabolic panel (07/28/2024 8:49 AM EST) Only the most recent of3 resultswithin the time period is included. Sodium 141 133 - 145 mmol/L LAB CHEMISTRY METHOD 07/28/2024 9:52 AM EST [facility] Potassium 4.4 3.5 - 5.5 mmol/L LAB CHEMISTRY METHOD 07/28/2024 9:52 AM [facility] Chloride 112(H) 96 - 110 mmol/L LAB CHEMISTRY METHOD 07/28/2024 9:52 AM [facility] CO2 21 21 - 32 mmol/L LAB CHEMISTRY METHOD 07/28/2024 9:52 AM [facility] Anion Gap 8 3 - 11 LAB CHEMISTRY METHOD 07/28/2024 9:52 AM [facility] Glucose 76 70 - 100 mg/dL LAB CHEMISTRY METHOD 07/28/2024 9:52 AM [facility] BUN 20 5 - 25 mg/dL LAB CHEMISTRY METHOD 07/28/2024 9:52 AM [facility] Creatinine 1.30(H) 0.50 - 1.10 mg/dL LAB CHEMISTRY METHOD 07/28/2024 9:52 AM [facility] eGFR 53(L) >=60 mL/min/1. 73m2 LAB CHEMISTRY METHOD 07/28/2024 9:52 AM [facility] Comment:Calculation based on the??Chronic Kidney Disease Epidemiology Collaboration (CKD-EPI) equation refit??without adjustment for race. BUN/Creatinine Ratio 15.4 LAB CHEMISTRY METHOD 07/28/2024 9:52 AM [facility] Calcium 8.2(L) 8.5 - 10.5 mg/dL LAB CHEMISTRY METHOD 07/28/2024 9:52 AM [facility] Blood Venous blood specimen / Unknown Venipuncture / Unknown 07/28/2024 8:49 AM EST 07/28/2024 9:04 AM EST us Cassandra WESTON LAB BLOOD ORDERABLES Final Resu lt [facility] [address] [place] [address], * TH AN ENDOTRACHEAL(NO CHARGE) (07/26/2024 7:54 AM EST) Radha Joyner CRNA - 07/26/2024 7:54 AM EST Radha Lacey CRNA ? 07/26/2024 ??7:55 AM General Information and Staff Patient location during procedure: OR Anesthesiologist: Tameka Gibson MD Resident/CREAM DIPPER: Radha Lacey CRNA Performed: resident/CREAM DIPPER/CAA Performed by: Radha Lacey CRNA Authorized by: [...] and culture (07/15/2024 11:38 AM EST) Specific [place] Urine 1.013 1.003 - 1.030 LAB URINALYSIS - AUTOMATED METHOD 07/15/2024 12:27 PM [facility] pH, Urine 5.0 5.0 - 8.0 pH LAB URINALYSIS - AUTOMATED METHOD 07/15/2024 12:27 PM [facility] Leukocytes, Urine Small(A) Negative LAB URINALYSIS - AUTOMATED METHOD 07/15/2024 12:27 PM [facility] Nitrite, Urine Negative Negative LAB URINALYSIS - AUTOMATED METHOD 07/15/2024 12:27 PM [facility] Protein, Urine 100(A) <=Trace mg/dL LAB URINALYSIS - AUTOMATED METHOD 07/15/2024 12:27 PM [facility] Glucose, Urine Negative Negative mg/dL LAB URINALYSIS - AUTOMATED METHOD 07/15/2024 12:27 PM [facility] Ketones, Urine Negative Negative mg/dL LAB URINALYSIS - AUTOMATED METHOD 07/15/2024 12:27 PM [facility] Urobilinogen, Urine 0.2 0.2 - 1.0 mg/dL LAB URINALYSIS - AUTOMATED METHOD 07/15/2024 12:27 PM [facility] Bilirubin, Urine Negative Negative LAB URINALYSIS - AUTOMATED METHOD 07/15/2024 12:27 PM [facility] Blood, Urine Trace(A) Negative LAB URINALYSIS - AUTOMATED METHOD 07/15/2024 12:27 PM [facility] RBC, Urine 2.8 0 - 4 /HPF LAB URINALYSIS - AUTOMATED METHOD 07/15/2024 12:27 PM [facility] WBC, Urine 40.5(H) 0 - 4 /HPF LAB URINALYSIS - AUTOMATED METHOD 07/15/2024 12:27 PM [facility] Squamous Epithelial, Urine 21 0 - 60 /LPF LAB URINALYSIS - AUTOMATED METHOD 07/15/2024 12:27 PM [facility] Bacteria, Urine Negative Negative /HPF LAB URINALYSIS - AUTOMATED METHOD 07/15/2024 12:27 PM [facility] Hyaline Casts, Urine 1.2 0 - 3 /LPF LAB URINALYSIS - AUTOMATED METHOD 07/15/2024 12:27 PM [facility] Urine Urine specimen obtained by clean catch procedure / Unknown Non-blood Collection / Unknown 07/15/2024 11:38 AM EST 07/15/2024 12:14 PM EST us Ana Lilia WESTON LAB URINE ORDERABLES Final R esult Performing Organization Address City/[facility]/ZIP Co de Phone Number [facility] [address] [place] [address], [place] [phone] * Dorsey urine culture tube (07/15/2024 11:38 AM EST) Extra Tube Hold for add-ons. 07/15/2024 2:01 PM EST [facility] Comment:Auto resulted. Urine Urine specimen obtained by clean catch procedure / Unknown Non-blood Collection / Unknown 07/15/2024 11:38 AM EST 07/15/2024 12:14 PM EST us Ana Lilia WESTON LAB URINE ORDERABLES Final R esult Performing Organization Address [facility] Co de Phone Number [facility] [address] [place] [address], [place] [phone] * Prothrombin time with INR (07/15/2024 11:38 AM EST) Pathologist [facility] Protime 12.3 10.6 - 13.9 sec LAB COAGULATION METHOD 07/15/2024 12:26 PM EST [facility] INR 1.0 LAB COAGULATION METHOD 07/15/2024 12:26 PM EST [facility] Blood Venous blood specimen / Unknown Venipuncture / Unknown 07/15/2024 11:38 AM EST 07/15/2024 12:14 PM EST us Ana Lilia WESTON LAB BLOOD ORDERABLES Final R esult Performing Organization Address [facility]/ZIP Co de Phone Number [facility] [address] [place] [address], [place] [phone] * Type and screen (07/15/2024 11:38 AM EST) ABO Group A 07/15/2024 2:07 PM EST [facility] Rh Type Positive 07/15/2024 2:07 PM EST [facility] Antibody Screen Negative 07/15/2024 2:07 PM EST [facility] Blood Venous blood specimen / Unknown Venipuncture / Unknown 07/15/2024 11:38 AM EST 07/15/2024 12:14 PM EST us Ana Lilia WESTON LAB BLOOD BANK TEST ORDERABL ES Final Result Performing Organization Address [facility]/ZIP Co de Phone Number [facility] [address] [place] [address], [place] [phone] * Culture urine (07/15/2024 11:38 AM EST) [facility] Culture, Urine 10,000-49,000 CFU/mL Mixed urogenital bela, no uropathogens present. Suggest repeat specimen if clinically indicated. 07/16/2024 9:24 AM EST [facility] Urine Urine specimen obtained by clean catch procedure / Unknown Non-blood Collection / Unknown 07/15/2024 11:38 AM EST 07/15/2024 12:27 PM EST us Ana Lilia WESTON LAB MICROBIOLOGY - GENERAL O RDERABLES Final Result [facility] [address] [place] [address], [place] [phone] * ECG 12 lead (07/15/2024 11:30 AM EST) Ventricular Rate ECG 52 BPM GEMUSE Atrial Rate 52 BPM GEMUSE P-R Interval 136 ms GEMUSE QRS Duration 70 ms GEMUSE Q-T Interval 398 ms GEMUSE QTc 370 ms GEMUSE P Wave [place] 23 degrees GEMUSE R [place] 6 degrees GEMUSE T [place] 23 degrees GEMUSE ECG Interpretation Sinus bradycardia [...] EST Normal examination of the chest. Code 59400 -------- FINAL REPORT -------- Dictated By: Alex Rolle Dictated Date: 06/27/2024 09:01 ET Assigned Physician: Alex Rolle Reviewed and Electronically Signed By: Alex Rolle Signed Date: 06/27/2024 09:02 ET Workstation ID: [id number] Transcribed By: Self Edit Transcribed Date: 06/27/2024 [...] IMPRESSION: Normal examination of the chest. Code 04381 -------- FINAL REPORT -------- Dictated By: Alex Rolle Dictated Date: 06/27/2024 09:01 ET Assigned Physician: Alex Rolle Reviewed and Electronically Signed By: Alex Rolle Signed Date: 06/27/2024 09:02 ET Workstation ID: [id number] Transcribed By: Self Edit Transcribed Date: 06/27/2024 [...] Most Recently Relevant to Health Maintenance Insurance [facility] [employer] Care Teams Wash Test Checker Relationship Specialty Start Date End Date Delores Silva MD [address] [place] [address] , [address] [facility] D/B/A: Alejandra [facility] [place], [place] PCP - General Internal Medicine 02/09/22
--- OUTSIDE RECORDS SUMMARY | 2024-09-04 17:18 | XMS_ITS | Encounter Summary ---
Author Organization [facility] Address [address] [place] [address] Care Team Providers Care Child Caregiver Name Role Phone Delores Silva MD Primary Care Provider [phone] Reason for Visit * Reason Comments Obesity Encounter Details Date Type Department Care Team ([facility] Contact Info) Description 08/26/2024 12:30 PM EST Nutrition Bariatric Surgery - [place] 175 [facility] [address] [place] [phone] Ruth Moore, RD [address] [address] Class 3 severe obesity with body mass [...] to lupus, reports no protein guidance from knife setter assembler and reports kidney function is improving DESIRED [...] Breakfast: eggs Lunch: beans Dinner: meat Snacks: romanian yogurt Beverages: water 1 bottle MVI: patch [...] (>50% of the time spent) in direct [id number] consultation for counseling, reviewing medical record and/or coordinating the plan as described above. Ruth Moore RD NUTRITION SERVICES Cosigned by Anaid Ontiveros MD at 08/28/2024 4:46 PM EST documented in this encounter Plan of Treatment Upcoming Encounters Date Type Department Care Team (Late st Contact Info) Description 09/05/2024 11:15 AM EST Office Visit Bariatric Surgery [facility] [address] [phone] Ana Lilia Bruce PA [address] [address] 09/09/2024 10:00 AM EST Office Visit [facility] Hematology Oncology [address] [place] [address] Reji Hernandez MD [address] [place] [address] 09/23/2024 11:30 AM EDT Office Visit Bariatric Surgery - [place] [address] [phone] Ana Lilia Bruce PA 271 [facility] [address] [place] [address] 09/30/2024 1:30 PM EDT Appointment [facility] Infusion Center [address] [facility] 2nd [place] [address] documented as of this encounter Visit Diagnoses Diagnosis Class 3 severe obesity with body mass index (BMI) of 40.0 to 44.9 in adult, unspecified obesity type, unspecified whether serious comorbidity present (CMS/HCC)- Primary documented in this encounter Care Teams Child Caregiver Relationship Specialty Start Date End Date Delores Silva MD 2 [facility] , [facility] 101 [facility] Physician Associ D/B/A: Alejandra [facility] DIOR Roberts PCP - General Internal Medicine 02/09/22 documented as of this encounter
--- OUTSIDE RECORDS SUMMARY | 2024-09-04 17:18 | XMS_ITS | Clinical Summary ---
Author Organization [facility] Facility Address [address] [place] [address] Care Team Providers Care Rug Backing Stenciler Name Role Phone Delores Mancia MD Primary Care Provider [phone] Allergies Active Allergy Reactions Criticality Noted Date [...] Office Communication [facility] [address] [address] Zoey Cuevas from Last 3 [...] Visit [facility] [address] [place] [address] Darci Gamble MD [address] [facility] [address] [place] [address] Health Maintenance Due Date Last Done Comments Pneumococcal Vaccine: Pediat rics (0 to 5 Years) and At-Risk Patients (6 to 64 Years) (1 of 2 - PCV) 11/24/1989 Influenza Vaccine (#1) 2024 2, 05/12/2021, 05/05/2020, Additional history exists Hepatitis B Vaccine Completed 09/07/1998, 05/06/1998, 02/17/1998 Insurance [facility] Care Teams Rug Backing Stenciler Relationship Specialty Start Date End Date Delores Mancia MD [address] [place], [place] PCP - General 07/20/20
--- OUTSIDE RECORDS SUMMARY | 2024-09-04 17:18 | XMS_ITS | Encounter Summary ---
Author Organization [facility] Address [address] [place] [address] Care Team Providers Care Non Emergency Services Ambulance Driver Name Role Phone Delores Silva MD Primary Care Provider [phone] Reason for Visit * Reason Comments Post-op Visit Sleeve to Bypass 07/10 Encounter Details Date Type Department Care Team ([facility] st Contact Info) Description 08/08/2024 11:15 AM EST Office Visit Bariatric Surgery - [place] [address] [place] [phone] Ana Lilia Bruce PA [address] [place] [address] Class 3 severe obesity due to excess [...] to gastric bypass with Dr. Ontiveros at [facility] on 07/26/2024. She is doing well with [...] index (BMI) of40.0 to 44.9 in adult ([facility]) Morbid (severe) obesity due to excess calories ([facility]) HTN (hypertension) Chronic renal insufficiency Bariatric surgery [...] index (BMI)of 40.0 to 44.9 in adult ([facility]) 2. Bariatric surgery status Discussed appropriate use [...] 11:15 AM EST Office Visit Bariatric Surgery [facility] [address] [phone] Ana Lilia Bruce PA [address] [address] 09/09/2024 10:00 AM EST Office Visit [facility] Hematology Oncology [address] [place] [phone] Reji Hernandez MD [address] [place] [address] 09/23/2024 11:30 AM EDT Office Visit Bariatric Surgery [facility] [address] [phone] Ana Lilia Bruce PA [address] [address] 09/30/2024 1:30 PM EDT Appointment [facility] [address] [place] [address] 2[address] [place] [phone] documented as of this encounter Visit Diagnoses Diagnosis Class 3 severe obesity due to excess calories with serious comorbidity and body mass index (BMI) of 40.0 to 44.9 in adult ([facility])- Primary Bariatric surgery status documented in this encounter Care Teams Non Emergency Services Ambulance Driver Relationship Specialty Start Date End Date Delores Silva MD [address] [place] [address] Physician Associ D/B/A: [facility] DIOR Roberts PCP - General Internal Medicine 02/09/22 documented as of this encounter
--- OUTSIDE RECORDS SUMMARY | 2024-09-04 17:18 | XMS_ITS | Encounter Summary ---
Author Organization [facility] Address [address] [place] [address] Care Team Providers Care Rn [facility] Name Role Phone Delores Silva MD Primary Care Provider [phone] Reason for Visit * Reason Comments Injections B12 injection * Episode Based Medications (Routine) - Authorized Specialty Diagnoses / Procedures Referred By Contac t Referred To Contact Diagnoses Anemia due to vitamin B12 deficiency, unspecified B12 deficiency type Reji Hernandez MD [address] [place] [address] Phone: tel: fax: [address] [address] Phone: tel: fax: Referral ID Status Reason Start Date Expiration Date V isits Requested Visits Authorized [id number] Authorized 05/07/2024 05/07/2025 1 12 Encounter Details Date Type Department Care Team (Latest Contact Info) Description 08/05/2024 12:44 PM EST - 08/05/2024 11:59 PM EST Hospital Encounter [address] [phone] Reji Hernandez MD [address] [place] [address] Anemia due to vitamin B12 deficiency, unspecified [...] AM EST Office Visit Bariatric Surgery - [place] [address] [facility] [address] [place] [address] Ana Lilia Bruce PA [address] [address] 09/09/2024 10:00 AM EST Office Visit [facility] Hematology Oncology [address] [place] [phone] Reji Hernandez MD [address] [place] [address] 09/23/2024 11:30 AM EDT Office Visit Bariatric Surgery - [place] [address] [phone] Ana Lilia Bruce PA [address] [phone] 09/30/2024 1:30 PM EDT Appointment [facility] Infusion Center [address] [facility] 2nd [place] [phone] documented as of this encounter Visit Diagnoses [...] 1 documented in this encounter Care Teams Rn Plasma Center Relationship Specialty Start Date End Date Delores Silva MD [address] [place] [address] , [address] Physician Associ D/B/A: [facility] DIOR Roberts PCP - General Internal Medicine 02/09/22 documented as of this encounter
== END 2024-09-04 13:17 | disposition home or self-care (01) ==
LOC: HO.LAB 13:16
PROVIDERS: PCP Internal Medicine
DX: M79.89 Other specified soft tissue disorders (principal); N18.32 Chronic kidney disease, stage 3b; M32.9 Systemic lupus erythematosus, unspecified; E03.9 Hypothyroidism, unspecified; E66.01 Morbid (severe) obesity due to excess calories; Z68.42 Body mass index [BMI] 45.0-49.9, adult; Z79.899 Other long term (current) drug therapy
CPT/HCPCS: 36415; 80053; 81001; 83880; 84439; 84443; 85025; 87086; 96127; 99212

== ENCOUNTER 2024-09-17 09:07 | Outpatient (AMB) | payer OTHER, SELFPAY ==
[2024-09-17 09:11] VITALS: BP 100/80; PULSE 73; O2SAT 99; BMI 41.2
--- NOTE | 2024-09-17 09:11 | A.OFFVIS_ITS ---
Vital Signs 09/17/24 09:11 Height 5 ft 4 in Weight 240 lb 4.862 oz BMI 41.2 BP 100/80 Blood Pressure Location Rt brachial Position Sitting Pulse 73 Pulse Oximetry (%) 99 Oxygen Delivery Method Room Air Oxygen Flow Rate 99 Intake Visit Reasons: RA Intake Note: Patient present today for RA. Allergies metformin [METFORMIN] Allergy (Intermediate, Verified 09/17/24 09:11) INFLAMMED GUMS, red gums, redness of gums doxycycline Adverse Reaction (Intermediate, Verified 09/17/24 09:11) Itching HPI HPI RA: Details: Gastric surgery 07/27. She recently restarted hydroxychloroquine. She has been experiencing increased joint pains after bariatric surgery. She has pain and swelling good her hands, her hips and her knees. She reports pain all over. Stiffness is hours. [facility] Medical History Osteoarthritis of knees, bilateral Hyperparathyroidism Vaginal discharge Physical exam Open wound of thumb Lupus Mild recurrent major depression Morbid obesity with BMI of 40.0-44.9, adult Vitamin D deficiency BMI 38.0-38.9,adult Intestinal malabsorption following gastrectomy Preeclampsia Obesity (BMI 30-39.9) Knee pain Hypertension Depression Proteinuria Autoimmune thyroiditis SLE (systemic lupus erythematosus related syndrome) Surgical History History of foot surgery History of open reduction and internal fixation (ORIF) procedure History of sleeve gastrectomy Status post biopsy of kidney Family History Father Asthma Mother No problems noted. Brother No problems noted. Brother No problems noted. Sister No problems noted. Social History Housing: Apartment Alcohol intake: never Patient Tobacco Use Status: Never used Tobacco e-Cigarette/Vaping Use: Never Used Second Hand Smoke Exposure: No service: No Current occupational status: unemployed Current occupational exposures/hazards: No Cognitive needs: No Hearing needs: No Vision needs: No Female Reproductive History Menstrual Age of Menarche: 11 Review of Systems Const All systems reviewed & are unremarkable except as noted in HPI and below Physical Exam Vital Signs: Last Vital Signs Pulse 73 09/17/24 09:11 BP 100/80 09/17/24 09:11 Pulse Ox 99 09/17/24 09:11 Oxygen Delivery Method Room Air 09/17/24 09:11 Oxygen Flow Rate 99 09/17/24 09:11 BMI result Body Mass Index 41.2 General: Non-toxic, NAD. Speaking full sentences. Skin: Warm dry throughout. Legs symmetrical in size and shape bilaterally. No R knee or RLE edema, erythema or ecchymosis Eye: EOMI Respiratory: No respiratory distress or stridor Cardiac: DP pulse intact RLE MSK: Full ROM with flexion/extension R knee. DIffuse ttp medial and lateral joint line of knee. Minimal lateral tibial plateau ttp R knee. No laxity felt with varus or valgus force applied R knee Neurology: Alert. No aphasia or facial droop. Gait without abnormality Psych: Good mood and affect Const Other: General: Comfortable CVS: RRR Respiratory: clear to auscultation bilaterally. Good respiratory effort Skin: No lesions seen MSK:Tender left PIP 4-5 and right PIPs, synovitis left 3rd PIP and right 2-3rd PIPs. MCPs and wrists tender. Diffuse allodynia of all extremities. Mild Valgus deformity of bilateral knees. Normal range of motion of upper extremities and lower extremities. Assessment & Plan Assessment & Plan (1) SLE (systemic lupus erythematosus related syndrome): Comment: Inflammatory arthritis is not controlled. She held hydroxychloroquine and leflunomide 10 mg qd due to recent bariatric surgery. She continues to have explosive watery diarrhea after HCQ administration. She is unable to split dose of hydroxychloroquine because she forgets to take the evening dose. [facility] on leflunomide 20 mg daily. Rheumatology history: Positive KEREN 1:160, low C3, indeterminate double-stranded DNA. 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 She developed i nflammatory arthritis involving her hands 2023. HCQ 2020- , Leflunomide 2023 - Code(s): M32.9 - Systemic lupus erythematosus, unspecified Category: Medical Plan: I will obtain labs for disease and drug monitoring this visit. Plaquenil 400 mg daily prescribed due to side effect of diarrhea on generic hydroxychloroquine, which may be alleviated with brand Plaquenil. Eye exam OCT and VF ok 09/19/2023 per note reviewed from [facility]. Plan to repeat eye exam in July 2024. Eye exam for HCQ due yearly. Increase leflunomide 20mg daily Short course of prednisone prescribed with GI prophylaxis due to recent history of bariatric surgery July 2024 Avoid oral NSAIDs in setting of gastric bypass surgery and CKD Return to clinic in 3 months (2) Right hamstring muscle strain: Comment: Secondary to osteoarthritis pain being uncontrolled. We discussed conservative management. Code(s): S76.311A - Strain of muscle, fascia and tendon of the posterior muscle group at thigh level, right thigh, initial encounter Category: Medical Qualifiers: Encounter type: initial encounter Qualified Code(s): S76.311A - Strain of muscle, fascia and tendon of the posterior muscle group at thigh level, right thigh, initial encounter Plan: PT ordered (3) Osteoarthritis of right knee: Comment: Uncontrolled pain. Failed Tylenol. Unable to keep hinged brace on. Gel injection 2022 left knee provided her 2 years of benefit given to her by Orthopedic surgery. Code(s): M17.11 - Unilateral primary osteoarthritis, right knee Category: Medical Qualifiers: Osteoarthritis type: primary Qualified Code(s): M17.11 - Unilateral primary osteoarthritis, right knee Plan: She will try compression sleeve. In the past she has not been able to keep hinged brace on Ice knee daily Apply diclofenac gel 1% to affected area every 4-6 hours as needed Contraindication to oral NSAID use due to history of bariatric surgery PT ordered for knee strengthening Patient will follow up with orthopedic surgeon in October for consideration of gel injection in the past, which benefitted her with providing 2 years of relief in pain. Return to clinic in 3 months (4) Fibromyalgia: Comment: Diffuse allodynia is consistent with fibromyalgia Code(s): M79.7 - Fibromyalgia Category: Medical Plan: I prescribed muscle relaxer in the short term cyclobenzaprine 5 mg q.h.s. PRN. Discussed side effects of cyclobenzaprine and risk of dependence with long-term use Defer further management to PCP with consideration of neuropsychiatric medication that are indicated for fibromyalgia management (5) Proteinuria: Comment: Follows with nephrology. Code(s): R80.9 - Proteinuria, unspecified Category: Medical Qualifiers: Proteinuria type: unspecified Qualified Code(s): R80.9 - Proteinuria, unspecified Plan: She will have follow-up in September 2024 with nephrology. Labs for urine studies ordered to assess lupus activity Plan . Orders: Orders Protein Creatinine Ratio, Ur Today M32.9 - Systemic lupus erythematosus, unspecified Erythrocyte Sedimentation Rate Today M32.9 - Systemic lupus erythematosus, unspecified C Reactive Protein Today M32.9 - Systemic lupus erythematosus, unspecified Anti DNA DS Antibody Today M32.9 - Systemic lupus erythematosus, unspecified PT Evaluation and Treatment Today M17.11 - Unilateral primary osteoarthritis, right knee, S76.311A - Strain of muscle, fascia and tendon of the posterior muscle group at thigh level, right thigh, initial encounter Complement C3 Today M32.9 - Systemic lupus erythematosus, unspecified Complement C4 Today M32.9 - Systemic lupus erythematosus, unspecified UA w Microscopic Today M32.9 - Systemic lupus erythematosus, unspecified Medications: New leflunomide 20 mg PO DAILY 30 tabs 2RF prednisone Take 3 tablets daily 3 days, 2 tablets daily 3 days, 1 tablet daily 3 days then stop 5 mg PO DIRECTED 18 tabs 0RF omeprazole Take 1 tablet daily while you are on prednisone to protect your stomach 20 mg PO DAILY 9 caps 0RF diclofenac sodium 1% apply to affected area every 4-6 hours 4 grams topical QID 300 grams 11RF cyclobenzaprine 5 mg PO BEDTIME PRN 30 tabs 1RF muscle spasm Changed From hydroxychloroquine (Plaquenil) 200 mg PO BID 60 tabs 2RF To Plaquenil (hydroxychloroquine) Dispense brand only 400 mg (2 x 200 mg) PO DAILY 60 tabs 5RF NS Discontinued leflunomide Hold when being treated for an infection. Resume after antibiotic is completed and you feel well. Discontinued Reason: Doctor's Order 10 mg PO DAILY 30 tabs 2RF Coding Level of Care Code Est Pt Level 4 (52783) Diagnoses SLE (systemic lupus erythematosus related syndrome) M32.9 Strain of right hamstring muscle, initial encounter S76.311A Encounter type: initial encounter Primary osteoarthritis of right knee M17.11 Osteoarthritis type: primary Fibromyalgia M79.7 Proteinuria, unspecified type R80.9 Proteinuria type: unspecified Time Spent (min) 30
--- OUTSIDE RECORDS SUMMARY | 2024-09-17 10:11 | XMS_ITS | Encounter Summary ---
Author Organization [facility] Address [address] [place] [address] Care Team Providers Care Athletic Training Internship Name Role Phone Delores Silva MD Primary Care Provider [phone] Encounter Details Date Type Department Care Team [...] Care Team (Late st Contact Info) Description 09/23/2024 11:30 AM EDT Office Visit Bariatric Surgery - [place] [address] [facility] [address] [place] [phone] Ana Lilia Bruce PA [address] [facility] [address] [place] [address] 09/30/2024 1:30 PM EDT Appointment [facility] Infusion Center [address] 2nd [place] [phone] documented as of this encounter Visit Diagnoses Not on filedocumented in this encounter Care Teams Athletic Training Internship Relationship Specialty Start Date End Date Delores Silva MD [address] [facility] , [address] [facility] Physician Associ D/B/A: [facility] [place] PCP - General Internal Medicine 02/09/22 documented as of this encounter
--- OUTSIDE RECORDS SUMMARY | 2024-09-17 10:11 | XMS_ITS | Data Portability ---
Author Organization [facility] [address] Address [address] [place] [phone] Assessment No assessment recorded. Plan of Treatment Reminders Order Date Submit Date Provider Last Modified By Organization Details Last Modified Time Details Appointments None recorded. Lab None recorded. Referral None recorded. Procedures None recorded. Surgeries None recorded. Imaging None recorded. Medication Orders mupirocin 2 % topical ointment 2023 024 [facility]acy #[id number], [address] [place], [address], 4 18:36:48 cephalexin 500 mg capsule 2023 024 [facility] #[id number], [address] [place], [address], 4 18:36:48 Patient TargetsNo targets recorded. Patient InstructionsNo instructions recorded. Reason for Referral None Reported. Problems Name Problem SNOMED Code Status Onset Date Resolution Date Notes Provider Name and Address Organization Details Recorded Time Lupus erythematosus 610374070 Active 2023 Melody Palmer null, [place] - [facility] 17:11:28 Depressive disorder 86461765 Active 2023 Melody Palmer null, PA - [facility] 17:11:43 Anxiety 44800338 Active 2023 Melody Palmer null, [place] - [facility] 17:11:52 Problem Notes None recorded. Medical Equipment None Reported. Allergies Allergen ID Allergen Name Allergen Category Reaction Reaction Severity Criticality Documentation Date Start Date Code Code System Note Provider Name and Address Organization Details Recorded Time 559174 metformin medicatio n hives mild Not available [...] Updated DateTime 4 162.56 cm 45.3 kg/m2 325926. 39 g 97.7 [degF] 18 /min 100 [...] SNOMED-CT Code Diagnosis ICD10 Code Diagnosis Note [id number] Eric Coto, JAMES [address] [place] [address] 10/07/2023 16:55:57 10/07/2023 17:37:11 Impetigo 14047357 L01.00 Impetigo (say im-puh-TY -go ) is [...] you can use an alcohol-ba sed hand electrical and instrumentation manager. Don't share items such as towels, sheets, [...] Joseph Member ID Guarantor Name 10/07/2023 1 [facility] - HEALTH NET PLAN (MEDICAID HMO) MISTY Vides [id number] Diane Vides Notes Date Note Type Note [...] Coto NP [address] [place], [address], [place] - [facility] 10/07/2023 18:36:57 OBGyn Episode No OBEpisode recorded.
--- OUTSIDE RECORDS SUMMARY | 2024-09-17 10:11 | XMS_ITS | Encounter Summary ---
Author Organization [facility][1] Address [address] [address] Phone Care Team Providers Care Demonstrator Knitting Name Role Phone Delores Mancia MD Primary Care Provider [phone] Encounter Details Date Type Department Care Team (Late st Contact Info) Description 07/11/2024 Office Communication [facility][1] [address] [address] Zoey Cuevas [address] [address] Social History Tobacco Use Types [...] Care Team (Late st Contact Info) Description 09/30/2024 Orders Only [facility][1] [address] [address] Darci Gamble MD [address] [address] Chronic kidney disease, stage 2 (mild); Persistent proteinuria 10/07/2024 2:00 PM EDT Office Visit [facility] [address] [place] [phone] Darci Gamble MD [address] [facility] [address] [place] [address] documented as of this encounter Visit Diagnoses Not on filedocumented in this encounter Care Teams Demonstrator Knitting Relationship Specialty Start Date End Date Delores Mancia MD [address] [place] PCP - General 07/20/20 documented as of this encounter
--- OUTSIDE RECORDS SUMMARY | 2024-09-17 10:12 | XMS_ITS | Encounter Summary ---
Author Organization [facility] Address [address] [place] [address] Care Team Providers Care Tech Intern Name Role Phone Delores Silva MD Primary Care Provider [phone] Reason for Visit * Reason Comments Post-op Visit 2 weeks Encounter Details Date Type Department Care Team ([facility] st Contact Info) Description 08/19/2024 3:45 PM EST Office Visit Bariatric Surgery - [place] [address] [facility] [address] [place] [phone] Ana Lilia Bruce PA [address] [facility] [address] [place] [address] Class 3 severe obesity due to excess [...] to gastric bypass with Dr. Ontiveros at [facility] on 07/26/2024. - 4 lbs since [...] index (BMI) of40.0 to 44.9 in adult ([facility]) Morbid (severe) obesity due to excess calories ([facility]) HTN (hypertension) Chronic renal insufficiency Bariatric [...] index (BMI)of 40.0 to 44.9 in adult (CMS/HCC) 2. Bariatric surgery status PLAN: 1. Obesity - Continue to advance diet in accordance with post op francisco javier protocol Continue to monitor protein intake - 60-80g daily Follow up with practice architect Continue daily vit Follow up in 4-6 weeks Medication and lab orders: No orders of the defined types were placed in this encounter. Other orders: None cc: Delores Silva MD documented in this encounter Plan of Treatment Upcoming Encounters Date Type Department Care Team (Late st Contact Info) Description 09/23/2024 11:30 AM EDT Office Visit Bariatric Surgery - [place] [address] [facility] [address] [place] [address] Ana Lilia Bruce PA [address] [facility] [address] [place] [address] 09/30/2024 1:30 PM EDT Appointment [facility] Infusion Center [address] [facility] 2nd [place] [address] documented as of this encounter Visit Diagnoses Diagnosis Class 3 severe obesity due to excess calories with serious comorbidity and body mass index (BMI) of 40.0 to 44.9 in adult ([facility])- Primary Bariatric surgery status documented in this encounter Care Teams Tech Intern Relationship Specialty Start Date End Date Delores Silva MD [address] [place] [address] , [address] [facility] Physician Associ D/B/A: [facility] DIOR Roberts PCP - General Internal Medicine 02/09/22 documented as of this encounter
--- OUTSIDE RECORDS SUMMARY | 2024-09-17 10:12 | XMS_ITS | Encounter Summary ---
Author Organization [facility] Address [address] [place] [address] Care Team Providers Care Supervisor Labor Gang Name Role Phone Delores Silva MD Primary Care Provider [phone] Reason for Referral * Imaging (Emergency) - Closed Specialty Diagnoses / Procedures Referred By Alphonso cooper Referred To Contact Diagnoses Bilateral edema of lower extremity Procedures Vascular US duplex lower extremity venous bilateral Ana Lilia Bruce PA [address] [address] Phone: tel: fax: [facility] Referral ID Status Reason Start Date Expiration Date Visits Re quested Visits Authorized [id number] Closed 09/05/2024 09/05/2025 1 1 Reason for Visit * Reason Comments Follow-up 2nd Post Op Sleeve t o Bypass 07/26 Encounter Details Date Type Department Care Team (Late st Contact Info) Description 09/05/2024 11:15 AM EST Office Visit Bariatric Surgery - [place] [address] [address] Ana Lilia Bruce PA [address] [address] Class 3 severe obesity due to excess calories with serious comorbidity and body mass index (BMI) of 40.0 to 44.9 in adult (CMS/HCC) (Primary Dx); Bilateral edema of lower extremity; Bariatric surgery status Social History Tobacco Use [...] Sign Reading Time Taken Comments Blood Pressure 136/87 09/05/2024 11:05 AM EST Pulse 65 09/05/2024 11:05 AM EST Temperature - - Respiratory Rate - - Oxygen Saturation - - Inhaled Oxygen Concentration - - Weight 111 kg (245 lb 12.8 oz) 09/05/2024 11:05 AM EST Height 162.6 cm (5' 4 ) 09/05/2024 11:05 AM EST Body Mass Index 42.19 09/05/2024 11:05 AM EST documented in this encounter Progress Notes * TRISTA Cruz - 09/05/2024 11:15 AM EST Diane Vides is a 38 y.o. year old female who presents for follow up regarding obesity. HPI: Diane Vides presents for surgical follow up s/p conversion of gastric sleeve to gastric bypass with Dr. Ontiveros at [facility] on 07/26/2024. Last appt on 08/19/2024 Since that time she has lost 2 pounds Has been seen in urgent care multiple times since that visit for bilateral lower extremity swellingand knee pain States that this started suddenly Does have chronic renal insufficiency for which she sees Dr. Gamble Has not seen him in quite a while States kidney function was normal while at urgent care Denies cardiac hx except for HTN Previously was on Lasix many years ago but has not been taking recently States that she was restarted on this medication by urgent care She drinks 2 bottles of water a day Takes daily multivitamin She is eating without nausea or vomiting No abdominal pain No acid reflux Denies fever, chills, chest pain, shortness of breath Body mass index is 42.19 kg/m??. ROS: GENERAL: No malaise, significant unintentional [...] Diagnosis Absolute anemia Class 3 severe obesity with body mass index (BMI) of 40.0 to 44.9 in adult ([facility]) Morbid (severe) obesity due to excess calories ([facility]) HTN (hypertension) Chronic renal insufficiency Bariatric surgery status PAST SURGICAL HISTORY: Past Surgical History: Procedure Laterality Date BARIATRIC SURGERY 2018 PROCEDURE:BARIATRIC SURGERY ORIF HIP FRACTURE Right orif r hip from dislocation SOCIAL HISTORY: Social History Tobacco Use Smoking status: Never Smokeless tobacco: Never Substance Use Topics Alcohol use: Not Currently FAMILY HISTORY: No family history on file. No family status information on file. MEDICATIONS: There are no discontinued medications. ACTIVE MEDICATIONS: No outpatient medications have been marked as taking for the 09/05/24 encounter (Office Visit) with TRISTA Cruz. ALLERGIES: Allergies Allergen Reactions Metformin Other Gums red and swollen PHYSICAL EXAM: Visit Vitals BP 136/87 Pulse 65 Ht 1.626 m (64 ) Wt 111 kg (245 lb 12.8 oz) BMI 42.19 kg/m?? OB Status Having periods Smoking Status Never BSA 2.13 m?? APPEARANCE: Alert and in no acute distress EYES: Conjunctiva normal and sclera normal and anicteric. LUNG: Chest no retractions. ABDOMEN: Soft, non-tender, without organomegaly or palpable masses. EXTREMITIES: Extremities warm and well perfused without clubbing, cyanosis,. + 2 pitting edema bilateral LE. No redness, warmth to the calves. Negative Homans. Mild discomfort on palpation of bilateral calves. SKIN: Skin color and texture normal. No rashes or lesions. ASSESSMENT: 1. Swelling of left lower extremity 2. Bilateral edema of lower extremity 3. Bariatric surgery status PLAN: 1. Swelling - Ultrasound to rule out DVT although unlikely Continue w/ Lasix Follow up with Gamble Follow up with PCP 2. Obesity - Increase fluid intake Check labs including pre albumin Follow up in 2 weeks Medication and lab orders: Orders Placed This Encounter Procedures Prealbumin Comprehensive metabolic panel Folate Selenium serum Zinc Vitamin D 25 hydroxy Vitamin B6 Vitamin B1 Vascular US duplex lower extremity venous bilateral Other orders: VAS US DUPLEX LOWER EXT VENOUS BILAT cc: Delores Silva MD documented in this encounter Plan of Treatment Upcoming Encounters Date Type Department Care Team (Late st Contact Info) Description 09/23/2024 11:30 AM EDT Office Visit Bariatric Surgery - [place] [address] [facility] [address] [place] [phone] Ana Lilia Bruce PA [address] [facility] [address] [place] [address] 09/30/2024 1:30 PM EDT Appointment [facility] [address] [facility] [address] 2nd [place] [phone] documented as of this encounter Results * Vitamin B1 (09/06/2024 8:47 AM EST) [facility] Vitamin B1 Whole Blood 43 38 - 122 ug/L 09/11/2024 9:51 AM EST [facility] Comment: This test was developed and the performance characteristics determined by [facility]. It has not been cleared or approved by the FDA. The laboratory is regulated under CLIA as qualified to perform high-complexity testing. This test is used for patient testing purposes. It should not be regarded as investigational or for research. Test performed at [facility], [address] , [place], [place] ??[address] ? [phone] Ann-Marie Kerr MD, PhD - Outside Solar Sales Consultant Blood Venous blood specimen / Unknown Venipuncture / Unknown 09/06/2024 8:47 AM EST 09/06/2024 9:08 AM EST Ana Lilia [facility] BLOOD ORDERABLES Final R esult Performing Organization Address [facility]/ZIP Co de Phone Number [facility] [address] [place] [address] * (ABNORMAL) Vitamin B6 (09/06/2024 8:47 AM EST) Vitamin B6 (Pyridoxine) Level 2(L) 5 - 50 ug/L 09/10/2024 11:37 AM EST [facility] Comment: This test was developed and the performance characteristics determined by [facility]. It has not been cleared or approved by the FDA. The laboratory is regulated under CLIA as qualified to perform high-complexity testing. This test is used for patient testing purposes. It should not be regarded as investigational or for research. Test performed at [facility], [address] [place], [place] ??[address] ? [phone] Ann-Marie Kerr MD, PhD - Outside Solar Sales Consultant Blood Venous blood specimen / Unknown Venipuncture / Unknown 09/06/2024 8:47 AM EST 09/06/2024 9:16 AM EST Ana Lilia [facility] BLOOD ORDERABLES Final R esult Performing Organization Address [facility] Co de Phone Number [facility] [address] [place] [address] * Vitamin D 25 hydroxy (09/06/2024 8:47 AM EST) Pathologist [facility] Vit D, 25-Hydroxy 36.4 30.0 - 80.0 ng/mL LAB CHEMISTRY METHOD 09/06/2024 12:07 PM EST [facility] Blood Venous blood specimen / Unknown Venipuncture / Unknown 09/06/2024 8:47 AM EST 09/06/2024 9:07 AM EST Ana Lilia [facility] BLOOD ORDERABLES Final R esult Performing Organization Address City/[facility]/ZIP Co de Phone Number [phone] [address] [place] [address], * Zinc (09/06/2024 8:47 AM EST) Zinc 68 60 - 130 ug/dL 09/09/2024 2:57 PM EST [facility] Comment: Elevated results may be due to sample collected in a non-certified trace element-free tube. This test was developed and the performance characteristics determined by [facility]. It has not been cleared or approved by the FDA. The laboratory is regulated under CLIA as qualified to perform high-complexity testing. This test is used for patient testing purposes. It should not be regarded as investigational or for research. Test performed at [facility], [address] , [place], [place] ??[address] ? [phone] Ann-Marie Kerr MD, PhD - Outside Solar Sales Consultant Blood Venous blood specimen / Unknown Venipuncture / Unknown 09/06/2024 8:47 AM EST 09/06/2024 9:08 AM EST Ana Lilia [facility] BLOOD ORDERABLES Final R esult Performing Organization Address [facility] Co de Phone Number [facility] [address] [place] [address] * Selenium serum (09/06/2024 8:47 AM EST) Selenium 109 63 - 160 mcg/L 09/11/2024 7:46 PM EST [facility] Comment: This test was developed and its analytical performance characteristics have been determined by [facility] [place] [place]. It has not been cleared or approved by the U.S. Food and Drug Administration. This assay has been validated pursuant to the CLIA regulations and is used for clinical purposes. Test Performed by [facility], [address] [place] [address] Edgard Dejesus M.D., Ph.D., Director of Laboratories , CLIA [id number] Blood Venous blood specimen / Unknown Venipuncture / Unknown 09/06/2024 8:47 AM EST 09/06/2024 9:08 AM EST Ana Lilia [facility] BLOOD ORDERABLES Final R esult [facility] [address] [place] [address] * Folate (09/06/2024 8:47 AM EST) Pathologist [facility] Folate 5.4 2.8 - 17.0 ng/ml LAB CHEMISTRY METHOD 09/06/2024 11:20 AM EST [facility] Blood Venous blood specimen / Unknown Venipuncture / Unknown 09/06/2024 8:47 AM EST 09/06/2024 9:07 AM EST Ana Lilia [facility] BLOOD ORDERABLES Final R esult [facility] [address] [place] [address], * (ABNORMAL) Comprehensive metabolic panel (09/06/2024 8:47 AM EST) [facility] Sodium 141 133 - 145 mmol/L LAB CHEMISTRY METHOD 09/06/2024 11:20 AM EST [facility] Potassium 3.8 3.5 - 5.5 mmol/L LAB CHEMISTRY METHOD 09/06/2024 11:20 AM [facility] Chloride 110 96 - 110 mmol/L LAB CHEMISTRY METHOD 09/06/2024 11:20 AM [facility] CO2 26 21 - 32 mmol/L LAB CHEMISTRY METHOD 09/06/2024 11:20 AM [facility] Anion Gap 5 3 - 11 LAB CHEMISTRY METHOD 09/06/2024 11:20 AM [facility] Glucose 82 70 - 100 mg/dL LAB CHEMISTRY METHOD 09/06/2024 11:20 AM [facility] BUN 12 5 - 25 mg/dL LAB CHEMISTRY METHOD 09/06/2024 11:20 AM [facility] Creatinine 1.05 0.50 - 1.10 mg/dL LAB CHEMISTRY METHOD 09/06/2024 11:20 AM [facility] eGFR 69 >=60 mL/min/1. 73m2 LAB CHEMISTRY METHOD 09/06/2024 11:20 AM [facility] Comment:Calculation based on the??Chronic Kidney Disease Epidemiology Collaboration (CKD-EPI) equation refit??without adjustment for race. BUN/Creatinine Ratio 11.4 LAB CHEMISTRY METHOD 09/06/2024 11:20 AM [facility] Calcium 8.8 8.5 - 10.5 mg/dL LAB CHEMISTRY METHOD 09/06/2024 11:20 AM [facility] AST (SGOT) 14 10 - 42 unit/L LAB CHEMISTRY METHOD 09/06/2024 11:20 AM [facility] ALT (SGPT) 22 10 - 60 unit/L LAB CHEMISTRY METHOD 09/06/2024 11:20 AM [facility] Alkaline Phosphatase 95 42 - 121 unit/L LAB CHEMISTRY METHOD 09/06/2024 11:20 AM [facility] Total Protein 5.7(L) 6.0 - 8.0 g/dL LAB CHEMISTRY METHOD 09/06/2024 11:20 AM [facility] Albumin 2.8(L) 3.2 - 5.0 g/dL LAB CHEMISTRY METHOD 09/06/2024 11:20 AM [facility] Total Bilirubin 0.4 0.0 - 1.4 mg/dL LAB CHEMISTRY METHOD 09/06/2024 11:20 AM [facility] Blood Venous blood specimen / Unknown Venipuncture / Unknown 09/06/2024 8:47 AM EST 09/06/2024 9:07 AM EST Ana Lilia [facility] BLOOD ORDERABLES Final R esult [facility] [address] [place] [address], [place] [phone] * Prealbumin (09/06/2024 8:47 AM EST) Prealbumin 22 18 - 45 mg/dL LAB CHEMISTRY METHOD 09/06/2024 11:20 AM EST [facility] Blood Venous blood specimen / Unknown Venipuncture / Unknown 09/06/2024 8:47 AM EST 09/06/2024 9:07 AM EST Ana Lilia [facility] BLOOD ORDERABLES Final R [facility] Performing Organization Address City/[facility]/ZIP Co de Phone Number [facility] [address] [place] [address], [place] [phone] * Vascular US duplex lower extremity venous bilateral (09/06/2024 8:38 AM EST) Anatomical Region Laterality Modality Vascular, Abdomen Ultrasound 09/06/2024 9:01 AM EST Impressions 09/06/2024 9:02 AM EST NO RIGHT OR LEFT LOWER EXTREMITY DEEP VENOUS THROMBOSIS. -------- FINAL REPORT -------- Dictated By: JEFFREY CHAMBERLAIN Dictated Date: 09/06/2024 09:01 ET Assigned Physician: JEFFREY CHAMBERLAIN Reviewed and Electronically Signed By: JEFFREY CHAMBERLAIN Signed Date: 09/06/2024 09:02 ET Workstation ID: [id number] Transcribed By: Self Edit Transcribed Date: 09/06/2024 09:01 ET Narrative 09/06/2024 9:02 AM EST PROCEDURE: VAS US DUPLEX LOWER EXT VENOUS BILAT INDICATION: Pain, edema TECHNIQUE: 2-D and color Doppler imaging of the lower extremity venous vasculature with compression and augmentation maneuvers. COMPARISON: No priors available. FINDINGS: RIGHT: There is normal flow, compression, and augmentation from the common femoral through the popliteus. LEFT: There is normal flow, compression, and augmentation from the common femoral through the popliteus. Visualized calf veins are patent. ??No fluid collection or mass. Procedure Note Jeffrey Chamberlain MD - 09/06/2024 PROCEDURE: VAS US DUPLEX LOWER EXT VENOUS BILAT INDICATION: Pain, edema TECHNIQUE: 2-D and color Doppler imaging of the lower extremity venousvasculature with compression and augmentation maneuvers. COMPARISON: No priors available. FINDINGS: RIGHT: There is normal flow, compression, and augmentation from the commonfemoral through the popliteus. LEFT: There is normal flow, compression, and augmentation from the commonfemoral through the popliteus. Visualized calf veins are patent. No fluid collection or mass. IMPRESSION: NO RIGHT OR LEFT LOWER EXTREMITY DEEP VENOUS THROMBOSIS. -------- FINAL REPORT -------- Dictated By: JEFFREY CHAMBERLAIN Dictated Date: 09/06/2024 09:01 ET Assigned Physician: JEFFREY CHAMBERLAIN Reviewed and Electronically Signed By: EJFFREY CHAMBERLAIN Signed Date: 09/06/2024 09:02 ET Workstation ID: [id number] Transcribed By: Self Edit Transcribed Date: 09/06/2024 09:01 ET us Ana Lilia [facility] CV VASCULAR PROCEDURES Final Result documented in this encounter Visit Diagnoses Diagnosis Class 3 severe obesity due to excess calories with serious comorbidity and body mass index (BMI) of 40.0 to 44.9 in adult (CMS/[facility])- Primary Bilateral edema of lower extremity Bariatric surgery status Bilateral edema of lower extremity documented in this encounter Care Teams Supervisor Labor Gang Relationship Specialty Start Date End Date Delores Silva MD [address] [facility] , [address] [employer] [facility] D/B/A: Alejandra Samuel In Internal Medicine DIOR Roberts PCP - General Internal Medicine 02/09/22 documented as of this encounter
--- OUTSIDE RECORDS SUMMARY | 2024-09-17 10:12 | XMS_ITS | Encounter Summary ---
Author Organization [facility] Address [address] [facility] [address] [place] [address] Phone Care Team Providers Care Steamfitter Supervisor Name Role Phone Delores Mancia MD Primary Care Provider [phone] Reason for Visit * Reason Comments Med Refill Encounter Details Date Type Department Care Team (Late Contact Info) Description 09/16/2024 Refill [facility] [address] [place] [address] Darci Gamble MD [address] [facility] [address] [place] [address] Persistent proteinuria; Chronic kidney disease stage 1 Social History Tobacco Use Types Packs/Day Years [...] on file documented as of this encounter Plan of Treatment Upcoming Encounters Date Type Department Care Team (Late st Contact Info) Description 09/30/2024 Orders Only [facility] [address] [facility] [address] [place] [address] Darci Gamble MD [address] [facility] [address] [place] [address] Chronic kidney disease, stage 2 (mild); Persistent proteinuria 10/07/2024 2:00 PM EDT Office Visit [facility] [address] [place] [address] Darci Gamble MD [address] [facility] [address] [place] [address] documented as of this encounter Visit Diagnoses Diagnosis Persistent proteinuria Chronic kidney disease stage 1 Chronic kidney disease, stage 2 (mild) Persistent proteinuria documented in this encounter Care Teams Steamfitter Supervisor Relationship Specialty Start Date End Date Delores Mancia MD [address] [place], [place] PCP - General 07/20/20 documented as of this encounter
--- OUTSIDE RECORDS SUMMARY | 2024-09-17 10:12 | XMS_ITS | Clinical Summary ---
Author Organization [facility] Address [address] [facility] [address] [place] [address] Care Team Providers Care Superintendent Overhead Distribution Name Role Phone Unavailable Primary Care Provider Unavailabl e Encounters Date Type Department Care Team Description 06/21/2024 9:00 AM EST Office Visit [facility] [address] [place] [address] Martell, Lamar, OD Myopia of both eyes [...] patient's age to complete this topic Insurance [facility]
--- OUTSIDE RECORDS SUMMARY | 2024-09-17 10:12 | XMS_ITS | Encounter Summary ---
Author Organization [facility] Address [address] [place] [address] Care Team Providers Care Leather Goods Ii Assembler Name Role Phone Delores Silva MD Primary Care Provider [phone] Reason for Visit * Reason Comments Follow-up Encounter Details Date Type Department Care Team (Late st Contact Info) Description 09/09/2024 10:00 AM EST Office Visit [facility] Hematology Oncology [address] [place] [phone] Reji Hernandez MD [address] [place] [address] Anemia, unspecified type (Primary Dx); Bariatric surgery status Social History [...] Sign Reading Time Taken Comments Blood Pressure 153/88 09/09/2024 10:02 AM EST Pulse 54 09/09/2024 10:02 AM EST Temperature 36.8 ??C (98.2 ??F) 09/09/2024 10:[address] Respiratory Rate - - Oxygen Saturation 100% 09/09/2024 10:02 AM EST Inhaled Oxygen Concentration - - Weight 111 kg (244 lb) 09/09/2024 10:02 AM EST Height - - Body Mass Index 41.88 09/05/2024 11:05 AM EST documented in this encounter Progress Notes * Reji Hernandez MD - 09/09/2024 10:00 AM EST ONC CANCER FOLLOW UP CHIEF COMPLAINT: Follow-up IDENTIFIER:Diane Vides is a 38 y.o. female. HPI: 38-year-old female with multimedical issues including history of bariatric surgery, question lupus,treated with Plaquenil, patient had severe/significant iron and B12 deficiency, received intravenous infusion last year as well as patient was seen B12 injections until now but her interest factor antibodies negative ROS: Has been fair lately, her energy level has improved Denies any significant/heavy menses except at first couple days of menses, she gets heavy menses She denies any black stool blood in stool PAST MEDICAL HISTORY: Patient Active Problem List Diagnosis Absolute anemia Class 3 severe obesity with body mass index (BMI) of 40.0 to 44.9 in adult ([facility]) Morbid (severe) obesity due to excess calories ([facility]) HTN (hypertension) Chronic renal insufficiency Bariatric surgery status Past Medical History: Diagnosis Date Anemia DX:Anemia Anxiety Arthritis Depression DX:Depression Hypertension DX:Hypertension Hypothyroidism not taking meds Joint pain Lupus (systemic lupus erythematosus) ([facility]) SOCIAL HISTORY: Social History Tobacco Use Smoking status: Never Smokeless tobacco: Never Substance Use Topics Alcohol use: Not Currently FAMILY HISTORY: Noncontributory Current Outpatient Medications: acetaminophen (TYLENOL) 500 mg tablet, Take 2 tablets (1,000 mg total) by mouth every 8 (eight) hours., Disp: 180 tablet, Rfl: 0 albuterol sulfate (ProAir RespiClick) 90 mcg/actuation aerosol powdr breath activated, Inhale into the lungs., Disp: , Rfl: ALPRAZolam (XANAX) 0.5 mg tablet, Take 1 tablet (0.5 mg total) by mouth every night at bedtime as needed for sleep. - Oral, Disp: , Rfl: escitalopram (LEXAPRO) 10 mg tablet, Take 1 tablet (10 mg total) by mouth daily. - Oral, Disp: , Rfl: hydroxychloroquine (PLAQUENIL) 200 mg tablet, Take 2 tablets (400 mg total) by mouth 1 (one) time each day., Disp: , Rfl: oxyCODONE (ROXICODONE) 5 mg immediate release tablet, Take 1 tablet (5 mg total) by mouth every 4 (four) hours if needed for moderate pain. Max Daily Amount: 30 mg, Disp: 15 tablet, Rfl: 0 pantoprazole (PROTONIX) 40 mg EC tablet, Take 1 tablet (40 mg total) by mouth 1 (one) time each daybefore breakfast. Do not crush, chew, or split., Disp: 30 each, Rfl: 2 simethicone (MYLICON) 80 mg chewable tablet, Chew 1 tablet (80 mg total) every 6 (six) hours if needed for flatulence., Disp: 120 tablet, Rfl: 0 ursodioL (ACTIGALL) 300 mg capsule, Take 1 capsule (300 mg total) by mouth 2 (two) times a day., Disp: 60 each, Rfl: 5 valsartan (DIOVAN) 160 mg tablet, Take 160 mg by mouth daily., Disp: , Rfl: wheat dextrin 3 gram/3.5 gram powder in packet, Take 1 packet by mouth 1 (one) time each day., Disp: 30 packet, Rfl: 0 Allergies Allergen Reactions Metformin Other Gums red and swollen PHYSICAL EXAM: Visit Vitals BP (!) 153/88 (BP Location: Left arm, Patient Position: Sitting, BP Cuff Size: Large adult) Pulse 54 Temp 36.8 ??C (98.2 ??F) (Temporal) Wt 111 kg (244 lb) SpO2 100% BMI 41.88 kg/m?? OB Status Having periods Smoking Status Never BSA 2.13 m?? ECOG 0-1 APPEARANCE: Alert and oriented in no acute distress EYES: nonicteric sclera pink conjunctiva ORAL CAVITY: No erythema or exudates NECK: Neck supple, no a significant denopathy, HEART: normal S1 and S2 LUNG: clear to auscultation bilaterally LYMPH NODES: No palpable superficial adenopathy ABDOMEN: Obese soft, nontender and no organomegaly appreciated EXTREMITIES: No significant edema, erythema or tenderness LABS: WBC 5.6, hemoglobin 12 g, hematocrit 36.4%, MCV 89 and platelet count 237 Vitamin B12 level 911 Intrinsic factor antibody negative TIBC 187, iron saturation 19% and ferritin 22 IMPRESSION: 1. Anemia, unspecified type 2. Bariatric surgery status 38-year-old female, who has history of bariatric surgery/question of lupus, as well as menorrhagia in the past, had significant iron deficiency and B12 deficiency, patient received intravenous iron infusion last year as well as B12 injections, her recent labs are unremarkable for any significant effusions but if she continue to have menorrhagia or if she develop in the future iron deficiency and significant B12 deficiency, she can go back to me for possible injection that may be required for patient to have bariatric surgery sometime indefinitely but I told her to try B12 orally every day PLAN: Recommend to take B12 1000 mcg daily Recommend to PCP to check blood count/CBC, B12 level and iron studies at least once a year and if there is drastic change, refer patient back to me Reji Hernandez MD documented in this encounter Plan of Treatment Upcoming Encounters Date Type Department Care Team (Late st Contact Info) Description 09/23/2024 11:30 AM EDT Office Visit Bariatric Surgery - [place] [address] [address] Ana Lilia Bruce PA 271 [facility] 120 [place] [address] 09/30/2024 1:30 PM EDT Appointment [facility] Infusion Center 271 [facility] 2nd [place] [phone] documented as of this encounter Visit Diagnoses Diagnosis Anemia, unspecified type- Primary Bariatric surgery status documented in this encounter Discontinued Medications Medication Sig Discontinue Reason Start Date End Da te calcium carb/vit D3/minerals (CALCIUM CARBONATE-VIT D3-MIN ORAL) Take by mouth. CALCIUM CARBONATE-VIT D-MIN PO Take by mouth. - Oral 09/09/2024 documented as of this encounter Care Teams Leather Goods Ii Assembler Relationship Specialty Start Date End Date Delores Silva MD [address] [place] [address] , [address] [facility] D/B/A: [facility]jandra [facility] In Internal Medicine DIOR Roberts PCP - General Internal Medicine 02/09/22 documented as of this encounter
--- OUTSIDE RECORDS SUMMARY | 2024-09-17 10:12 | XMS_ITS | Encounter Summary ---
Author Organization [facility] Address [address] [place] [address] Care Team Providers Care Pier Master Assistant Name Role Phone Delores Silva MD Primary Care Provider [phone] Reason for Visit * Episode Based Medications (Routine) - Authorized Specialty Diagnoses / Procedures Referred By Contac t Referred To Contact Diagnoses Anemia due to vitamin B12 deficiency, unspecified B12 deficiency type Reji Hernandez MD [address] [place] [address] Phone: tel: fax: [address] [address] Phone: tel: fax: Referral ID Status Reason Start Date Expiration Date V isits Requested Visits Authorized [id number] Authorized 05/07/2024 05/07/2025 1 12 Encounter Details Date Type Department Care Team (Latest Contact Info) Description 09/02/2024 1:28 PM EST - 09/02/2024 11:59 PM EST Hospital Encounter [address] [phone] Reji Hernandez MD [address] [place] [address] Anemia due to vitamin B12 deficiency, unspecified [...] bedtime as needed for sleep. - Oral escitalopram (LEXAPRO) 10 mg tablet [...] (one) time each day. 30 packet 07/16/2024 calcium carb/vit D3/minerals (CALCIUM CARBONATE-VIT D3-MIN ORAL) Take by mouth. CALCIUM CARBONATE-VIT D-MIN PO Take by mouth. - Oral 09/09/2024 documented as of this encounter Discharge Disposition [...] AM EDT Office Visit Bariatric Surgery - [place] [address] [phone] Ana Lilia Bruce PA [address] [address] 09/30/2024 1:30 PM EDT Appointment [facility] Infusion Center 271 [facility] 2nd [place] [phone] documented as of this encounter Visit Diagnoses [...] 1 documented in this encounter Care Teams Pier Master Assistant Relationship Specialty Start Date End Date Delores Silva MD 2 [facility] , [address] [facility] Associ D/B/A: Alejandra Mc[facility]ullenaties In Internal Medicine DIOR Roberts PCP - General Internal Medicine 02/09/22 documented as of this encounter
--- OUTSIDE RECORDS SUMMARY | 2024-09-17 10:12 | XMS_ITS | Encounter Summary ---
Author Organization [facility] Address [address] [address] Phone Care Team Providers Care Inward Toll Operator Name Role Phone Delores Mancia MD Primary Care Provider [phone] Encounter Details Date Type Department Care Team (Late Contact Info) Description 09/06/2024 Orders Only [facility] [address] [place] [phone] Darci Gamble MD [address] [phone] Social History Tobacco Use Types [...] Orders Only [facility] [address] [place] [phone] Darci Gamble MD [address] [address] Chronic kidney disease, stage 2 (mild); Persistent proteinuria 10/07/2024 2:00 PM EDT Office Visit [facility] [address] [place] [address] Darci Gamble MD [address] [facility] 204 [place] [phone] documented as of this encounter Procedures Procedure Name Priority Date/Time Associated Diagnosis Comments URINE ALBUMIN / CREATININE RATIO Routine 09/06/2024 9:21 AM EST URINALYSIS RFX MICROSCOPIC Routine 09/06/2024 9:21 AM EST URINE CULTURE Routine 09/06/2024 9:21 AM EST IRON PANEL (HC) Routine 09/06/2024 8:47 AM EST CBC WITH AUTO DIFFERENTIAL Routine 09/06/2024 8:47 AM EST PHOSPHATE ( PHOSPHORUS) Routine 09/06/2024 8:47 AM EST PTH, INTACT Routine 09/06/2024 8:47 AM EST HEMOGLOBIN A1C Routine 09/06/2024 8:47 AM EST FERRITIN Routine 09/06/2024 8:47 AM EST documented in this encounter Results * Urine Culture (09/06/2024 9:21 AM EST) Culture Result, Urine 50,000-99,000 CFU/mL Mixed urogenital bela, no uropathogens present. Suggest repeat specimen if clinically indicated. [facility] 09/06/2024 9:21 AM EST 09/06/2024 10:21 AM EST us Darci Gamble MD LAB URINE ORDERABLES Final Re sult [facility] [address] [place] [address] * (ABNORMAL) Urine Albumin / Creatinine Ratio (09/06/2024 9:21 AM EST) Creatinine, Urine 129.0 mg/dL [facility] Microalbumin Urine Random 147.0(H) 0.0 - 29.0 mg/L [facility] Microalbumin/Cre atinine Ratio 114(H) <30 mg/g creat [facility] 09/06/2024 9:21 AM EST 09/06/2024 10:22 AM EST us Darci Gamble MD LAB URINE ORDERABLES Final Re sult [facility] [address] [place] [address] * (ABNORMAL) Urinalysis Reflex Microscopic (09/06/2024 9:21 AM EST) Specific [place] 1.015 1.003 - 1.030 [facility] pH Urine 5.5 5.0 - 8.0 pH [facility] LEUKOCYTES, URINE Small(A) Negative [facility] Nitrite, Urine Negative Negative [facility] Protein, Urine 30(A) <=Trace mg/dL [facility] Glucose Urine Negative Negative mg/dL [facility] Ketones, Urine Negative Negative mg/dL [facility] Urobilinogen Urine 0.2 0.2 - 1.0 mg/dL [facility] Bilirubin Urine Negative Negative [facility] Blood Urine Negative Negative [facility] RBC, Urine 3.4 0 - 4 /HPF [facility] WBC, Urine 40.4(H) 0 - 4 /HPF [facility] Squamous Epithelial, Urine >100(H) 0 - 60 /LPF [facility] Bacteria, Urine Negative Negative /HPF [facility] Hyaline Casts, UA 1.6 0 - 3 /LPF [facility] 09/06/2024 9:21 AM EST 09/06/2024 10:22 AM EST Darci aGmble MD LAB URINE ORDERABLES Final Re sult Performing Organization Address City/[facility]/ZIP Co de Phone Number [facility] [address] [place] [address] * Hemoglobin A1c (09/06/2024 8:47 AM EST) Hemoglobin A1C 4.9 <6.5 % [facility] Estimated Average Glucose 94 mg/dL [facility] 09/06/2024 8:47 AM EST 09/06/2024 9:08 AM EST Darci Gamble MD LAB BLOOD ORDERABLES Final Re sult Performing Organization Address [facility]/[place] Co de Phone Number [facility] [address] [place] [address] * (ABNORMAL) PTH, Intact (09/06/2024 8:47 AM EST) PTH 129.2(H) 18.5 - 88.0 pcg/mL [facility] 09/06/2024 8:47 AM EST 09/06/2024 9:07 AM EST Darci Gamble MD LAB BLOOD ORDERABLES Final Re sult Performing Organization Address [facility]/[place] Co de Phone Number [facility] [address] [place] [address] * Ferritin (09/06/2024 8:47 AM EST) Ferritin 17 8 - 252 ng/mL [facility] 09/06/2024 8:47 AM EST 09/06/2024 9:07 AM EST Darci Gamble MD LAB BLOOD ORDERABLES Final Re sult Performing Organization Address [facility]/ZIP Co de Phone Number [facility] [address] [place] [address] * Phosphorus (09/06/2024 8:47 AM EST) Phosphorus 2.7 2.5 - 4.5 mg/dL [facility] 09/06/2024 8:47 AM EST 09/06/2024 9:07 AM EST us Darci Gamble MD LAB BLOOD ORDERABLES Final Re sult Performing Organization Address [facility] de Phone Number [facility] [address] [place] [address] * (ABNORMAL) Iron Panel (09/06/2024 8:47 AM EST) Pathologist [facility] Iron 46 40 - 150 mcg/dL [facility] TIBC 188(L) 250 - 450 mcg/dL [facility] Iron Saturation (TSat) 24 15 - 50 % [facility] 09/06/2024 8:47 AM EST 09/06/2024 9:07 AM EST Darci Gamble MD LAB [id number] SOLICITED RESULTS Final Result Performing Organization Address [facility]/[place] Co de Phone Number [facility] [address] [place] [address] * (ABNORMAL) CBC auto differential (09/06/2024 8:47 AM EST) WBC 5.3 4.8 - 10.8 K/mcL [facility] RBC 3.90 3.80 - 4.80 M/[facility] Hgb 11.7 11.5 - 16.0 g/dL [facility] Hematocrit 34.1(L) 35.0 - 47.0 % [facility] MCV 87.9 79.0 - 98.0 FL [facility] MCH 30.2 27.0 - 32.0 pcg [facility] MCHC 34.3 32.0 - 37.0 g/dL [facility] RDW 16.0(H) 11.0 - 15.0 % [facility] Platelets 238 130 - 400 K/[facility] MPV 11.7(H) 7.0 - 11.0 [facility] nRBC Count 0.0 <1.0 % [facility] NRBC Absolute 0.00 <0.10 K/[facility] Bands Relative 70.9 % [facility] Lymphocyte Realative Percent 18.7 % [facility] Monocyte Relative Percent 6.9 % [facility] Eosinophil Relative Percent 2.2 % [facility] Basophils Relative Diff 0.7 % [facility] Immature Granulocytes 0.6 % [facility] Neutrophils Absolute 3.78 1.50 - 7.00 K/[facility] Lymphocytes Absolute 1.00 1.00 - 5.00 K/[facility] Monocytes Absolute 0.37 0.20 - 1.00 K/[facility] Eosinophil Absolute 0.12 0.00 - 0.50 K/[facility] Basophil ABS 0.04 0.00 - 0.20 K/[facility] ([facility] Immature Grans (Absolute) 0.03 0.00 - 0.03 /[facility] 09/06/2024 8:47 AM EST 09/06/2024 9:08 AM EST us Darci Gamble MD LAB BLOOD ORDERABLES Final Re sult [facility] [address] [place] [address] documented in this encounter Visit Diagnoses Not on filedocumented in this encounter Care Teams Inward Toll Operator Relationship Specialty Start Date End Date Delores Mancia MD [address] [facility] [address] [address] [place], [place] PCP - General 07/20/20 documented as of this encounter
--- OUTSIDE RECORDS SUMMARY | 2024-09-17 10:12 | XMS_ITS | Encounter Summary ---
Author Organization [facility] Address [address] [place] [address] Care Team Providers Care Associate Civil Engineer Name Role Phone Delores Silva MD Primary Care Provider [phone] Reason for Visit * Reason Comments Obesity Encounter Details Date Type Department Care Team ([facility] Contact Info) Description 08/26/2024 12:30 PM EST Nutrition Bariatric Surgery - [place] 175 [facility] 120 [place] [phone] Ruth Moore, RD [address] [address] Class 3 severe obesity with body mass [...] to lupus, reports no protein guidance from comptroller and reports kidney function is improving DESIRED [...] Breakfast: eggs Lunch: beans Dinner: meat Snacks: czech yogurt Beverages: water 1 bottle MVI: patch [...] (>50% of the time spent) in direct [id number] consultation for counseling, reviewing medical record and/or coordinating the plan as described above. Ruth Moore RD NUTRITION SERVICES Cosigned by Anaid Ontiveros MD at 08/28/2024 4:46 PM EST documented in this encounter Plan of Treatment Upcoming Encounters Date Type Department Care Team (Late st Contact Info) Description 09/23/2024 11:30 AM EDT Office Visit Bariatric Surgery - [place] 175 [facility] [address] [place] [phone] Ana Lilia Bruce PA 271 [facility] [address] [place] [address] 09/30/2024 1:30 PM EDT Appointment [facility] Infusion Center 271 [facility] 2nd [place] [address] documented as of this encounter Visit Diagnoses Diagnosis Class 3 severe obesity with body mass index (BMI) of 40.0 to 44.9 in adult, unspecified obesity type, unspecified whether serious comorbidity present (CMS/HCC)- Primary documented in this encounter Care Teams Associate Civil Engineer Relationship Specialty Start Date End Date Delores Silva MD 2 [facility] , [place] 101 [facility] Physician Associ D/B/A: Alejandra Associ[facility] In Internal Medicine DIOR Roberts PCP - General Internal Medicine 02/09/22 documented as of this encounter
--- OUTSIDE RECORDS SUMMARY | 2024-09-17 10:12 | XMS_ITS | Encounter Summary ---
Author Organization [facility] Address [address] [place] [address] Care Team Providers Care Cleaner Assistant Name Role Phone Delores Silva MD Primary Care Provider [phone] Encounter Details Date Type Department Care Team ([facility] Contact Info) Description 09/05/2024 Telephone Bariatric Surgery - [place] 175 [facility] 120 [place] [address] Ana Lilia Bruce PA 271 [facility] 120 [place] [address] Social History Tobacco Use Types Packs/Day Years [...] as of this encounter Progress Notes * Diana Woo MA - 09/05/2024 2:46 PM EST Called Francesca Hernandez spoke to [place]. Scheduled the pts US for 09/06/24 @8am. Pt should arrive 15 minute early. Called pt and gave her all appt details. documented in this encounter Plan of Treatment Upcoming Encounters Date Type Department Care Team (Late st Contact Info) Description 09/23/2024 11:30 AM EDT Office Visit Bariatric Surgery - [place] [address] [facility] [address] [place] [phone] Ana Lilia Bruce PA [address] [facility] [address] [place] [address] 09/30/2024 1:30 PM EDT Appointment [facility] Infusion Center [address] [facility] [address] [place] [phone] documented as of this encounter Visit Diagnoses Not on filedocumented in this encounter Care Teams Cleaner Assistant Relationship Specialty Start Date End Date Delores Silva MD 2 [facility] , [facility] 101 [facility] Physician Associ D/B/A: Alejandra Associaties In Internal Medicine DIOR Roberts PCP - General Internal Medicine 02/09/22 documented as of this encounter
--- OUTSIDE RECORDS SUMMARY | 2024-09-17 10:12 | XMS_ITS | Clinical Summary ---
Author Organization [facility] Address [address] [place] [address] Phone Care Team Providers Care Sample Checker Name Role Phone Delores Silva MD Primary Care Provider [phone] Allergies Active Allergy Reactions Criticality Noted Date Comments Metformin Other Medium 02/10/2022 Gums red and swollen Medications hydroxychloroquin e (PLAQUENIL) 200 mg tablet Take 2 tablets (400 mg total) by mouth 1 (one) time each day. Active ALPRAZolam (XANAX) 0.5 mg tablet Take 1 tablet (0.5 mg total) by mouth every night at bedtime as needed for sleep. - Oral Active escitalopram (LEXAPRO) 10 mg [...] mouth every 8 (eight) hours. 180 tablet 07/16/19 25 Active pantoprazole (PROTONIX) 40 mg EC tablet Take 1 tablet (40 mg total) by mouth 1 (one) time each day before breakfast. Do not crush, chew, or split. 30 each 2 07/16/19 25 025 Active simethicone (MYLICON) 80 mg chewable tablet Chew 1 tablet (80 mg total) every 6 (six) hours if needed for flatulence. 120 tablet 07/16/19 25 Active ursodioL (ACTIGALL) 300 mg capsule Take 1 capsule (300 mg total) by mouth 2 (two) times a day. 60 each 5 07/16/19 25 025 Active wheat dextrin 3 gram/3.5 gram powder in packet Take 1 packet by mouth 1 (one) time each day. 30 packet 07/16/19 25 Active oxyCODONE (ROXICODONE) 5 mg immediate release tabletIndications :H/O gastric sleeve Take 1 tablet (5 mg total) by mouth every 4 (four) hours if needed for moderate pain. Max Daily Amount: 30 mg 15 tablet 07/27/19 25 Active pyridoxine (B-6) 100 mg tabletIndications :Intestinal malabsorption following gastrectomy Take 1 tablet (100 mg total) by mouth 1 (one) time each day. 30 tablet 1 09/12/19 25 025 Active calcium carb/vit D3/minerals (CALCIUM CARBONATE-VIT D3-MIN ORAL) Take by mouth. CALCIUM CARBONATE- T D-MIN PO Take by mouth. - Oral 025 Discontinued docusate sodium (Colace) 100 mg capsule Take 1 capsule (100 mg total) by mouth 2 (two) times a day for 10 days. 20 each 08/08/19 25 025 Active Problems Problem Noted Date Diagnosed Date Bariatric surgery status 08/08/2024 Chronic renal insufficiency 07/26/2024 HTN (hypertension) 07/25/2024 Morbid (severe) obesity due to excess calories 1 08/19/2023 Class 3 severe obesity with body mass index (BMI) of 40.0 to 44.9 in adult 04/12/2024 Absolute anemia 03/22/2024 Encounters Date Type Department Care Team Description 09/09/2024 10:00 AM EST Office Visit [facility] Hematology Oncology [address] [place] [address] Reji Hernandez MD Anemia, unspecified type (Primary Dx); Bariatric surgery status 09/06/2024 7:50 AM EST - 09/06/2024 11:59 PM EST Hospital Encounter [facility] Ultrasound [address] [place] [address] Bilateral edema of lower extremity Discharge Disposition: Home or Self Care 09/05/2024 11:15 AM EST Office Visit Bariatric Surgery - [address] [phone] Ana Lilia Bruce PA Class 3 severe obesity due to excess calories with serious comorbidity and body mass index (BMI) of 40.0 to 44.9 in adult ([facility]) (Primary Dx); Bilateral edema of lower extremity; Bariatric surgery status 09/05/2024 Telephone Bariatric Surgery - [address] [phone] Ana Lilia Bruce PA 09/02/2024 1:28 PM EST - 09/02/2024 11:59 PM EST Hospital [facility] [address] [facility] 2nd [place] [phone] Reji Hernandez MD Anemia due to vitamin B12 deficiency, unspecified B12 deficiency type (Primary Dx) Discharge Disposition: Home or Self Care 08/26/2024 12:30 PM EST Nutrition Bariatric Surgery - [address] [phone] Ruth [address] Class 3 severe obesity with body mass index (BMI) of 40.0 to 44.9 in adult, unspecified obesity type, unspecified whether serious comorbidity present ([facility]) (Primary Dx) 08/19/2024 3:45 PM EST Office Visit Bariatric Surgery [address] [phone] Ana Lilia Bruce PA Class 3 severe obesity due to excess calories with serious comorbidity and body mass index (BMI) of 40.0 to 44.9 in adult ([facility]) (Primary Dx); Bariatric surgery status 08/08/2024 11:15 AM EST Office Visit Bariatric Surgery [address] [phone] Ana Lilia Bruce PA Class 3 severe obesity due to excess calories with serious comorbidity and body mass index (BMI) of 40.0 to 44.9 in adult ([facility]) (Primary Dx); Bariatric surgery status 08/05/2024 12:44 PM EST - 08/05/2024 11:59 PM EST Hospital Encounter [facility] Infusion Center [address] [phone] Reji Hernandez MD Anemia due to vitamin B12 deficiency, unspecified B12 deficiency type (Primary Dx) Discharge Disposition: Home or Self Care 07/31/2024 Telephone Bariatric Surgery - [address] [phone] Loan Javier, RN 07/30/2024 Telephone Bariatric Surgery - [address] [phone] Loan Javier, ANURADHA 07/26/2024 7:41 AM EST Anesthesia Event [facility] Main OR [address] [place] [phone] Tameka Gibson MD 07/26/2024 7:30 AM EST - 07/26/2024 10:30 AM EST Surgery [facility] Main OR [address] [place] [phone] Anaid Ontiveros MD [facility] CONVERSION OF SLEEVE TO BYPASS [02111 (CPT??)] 07/26/2024 6:09 AM EST - 07/28/2024 2:38 PM EST Hospital Encounter [facility] Medical Surgical Unit [address] [place] [phone] Anaid Ontiveros MD H/O gastric sleeve (Primary Dx) Discharge Disposition: Home or Self Care 07/24/2024 Telephone Bariatric Surgery - [address] [phone] Loan Javier, RN 07/16/2024 11:45 AM EST Consult Bariatric Surgery - [address] [phone] Ana Lilia Bruce PA Class 3 severe obesity due to excess calories with serious comorbidity and body mass index (BMI) of 45.0 to 49.9 in adult ([facility]) (Primary Dx); Gastroesophageal reflux disease, unspecified whether esophagitis present 07/08/2024 1:17 PM EST - 07/08/2024 11:59 PM EST Hospital Encounter [facility] [address] [facility] [address] [place] [address] Anemia due to vitamin B12 deficiency, unspecified B12 deficiency type (Primary Dx) Discharge Disposition: Home or Self Care 06/27/2024 1:00 PM EST Telemedicine Bariatric Surgery - [facility] [address] [place] [phone] Class 3 severe obesity with body mass index (BMI) of 45.0 to 49.9 in adult, unspecified obesity type, unspecified whether serious comorbidity present (CMS/HCC) (Primary Dx) 06/27/2024 8:35 AM EST - 06/27/2024 11:59 PM EST Hospital Encounter [facility] Xray [address] [place] [address] Morbid (severe) obesity due to excess calories ([facility]) Discharge Disposition: Home or Self Care from Last 3 Months Immunizations Name Administration Dates Next Due Pfizer SARS-CoV-2 COVID-19, mRNA, LNP-S, preservative free 10/04/2022 Surgical History Surgery Date Site/Laterality Comments BARIATRIC SURGERY 2019 PROCEDURE:BARIATRIC SURGERY ORIF HIP FRACTURE Right orif r hip from dislocation Medical History Medical History Date Comments Anemia DX:Anemia Hypertension DX:Hypertension Depression DX:Depression Hypothyroidism not taking meds Anxiety Arthritis Joint pain Lupus (systemic lupus erythematosus) ([facility]) Social History Tobacco Use Types Packs/Day Years [...] 09/09/2024 10:[address] Respiratory Rate 18 09/02/2024 1:34 PM EST Oxygen Saturation 100% 09/09/2024 10:02 AM EST Inhaled Oxygen Concentration - - Weight 111 kg (244 lb) 09/09/2024 10:02 AM EST Height 162.6 cm (5' 4 ) 09/05/2024 11:05 AM EST Body Mass Index 41.88 09/05/2024 11:05 AM EST Plan of Treatment Upcoming Encounters Date Type Department Care Team (Late st Contact Info) Description 09/23/2024 11:30 AM EDT Office Visit Bariatric Surgery - [place] [address] [facility] [address] [place] [phone] Ana Lilia Bruce PA [address] [place] [address] 09/30/2024 1:30 PM EDT Appointment [facility] [address] [facility] 2nd [place] [phone] Health Maintenance Due Date Last Done Comments Breast Cancer Screening 1983 Cervical Cancer Screening: Pap Smear 11/24/2004 HPV Vaccines (2 - 3-dose series) 2009 10/28/2009 Depression Screening 06/19/2022 HIV Screening 06/19/2022 Hepatitis C Screening 06/19/2022 Social Influencers of Health Screening 06/19/2022 COVID-19 Vaccine ( season) 2024 10/04/2022, 06/18/2021, 10/18/2020, Additional history exists Hypertension/CHF/CAD Annual BMP Blood Test 09/06/2025 09/06/2024, 07/28/2024, 07/27/2024, Additional history exists Cholesterol Screening (Lipid Panel) [...] this topic Medical Devices Implanted Type Area Dance Critic Device Identifier Shelf Expiration Date Model / Serial / Lot Bone Pin Right: Hip Procedures Procedure Name Priority Date/Time Associated Diagnosis Comments URINALYSIS WITH REFLEX MICROSCOPIC Routine 09/06/2024 9:21 AM EST Chronic kidney disease (CKD) stage G3a/A1, moderately decreased glomerular filtration rate (GFR) between 45-59 mL/min/1.73 square meter and albuminuria creatinine ratio less than 30 mg/g (CMS/HCC) Proteinuria Anemia, unspecified URINALYSIS WITH REFLEX MICROSCOPIC Routine 09/06/2024 9:21 AM EST Chronic kidney disease (CKD) stage G3a/A1, moderately decreased glomerular filtration rate (GFR) between 45-59 mL/min/1.73 square meter and albuminuria creatinine ratio less than 30 mg/g (CMS/HCC) Proteinuria Anemia, unspecified MICROALBUMIN CREATININE URINE RATIO Routine 09/06/2024 9:21 AM EST Chronic kidney disease (CKD) stage G3a/A1, moderately decreased glomerular filtration rate (GFR) between 45-59 mL/min/1.73 square meter and albuminuria creatinine ratio less than 30 mg/g (CMS/HCC) Proteinuria Anemia, unspecified HCG QUALITATIVE, URINE Routine 9:21 AM EST Morbid (severe) obesity due to excess calories (CMS/HCC) CULTURE URINE Routine 09/06/2024 9:21 AM EST Chronic kidney disease (CKD) stage G3a/A1, moderately decreased glomerular filtration rate (GFR) between 45-59 mL/min/1.73 square meter and albuminuria creatinine ratio less than 30 mg/g (CMS/HCC) Proteinuria Anemia, unspecified PHOSPHORUS Routine 09/06/2024 8:47 AM EST Chronic kidney disease (CKD) stage G3a/A1, moderately decreased glomerular filtration rate (GFR) between 45-59 mL/min/1.73 square meter and albuminuria creatinine ratio less than 30 mg/g (CMS/HCC) Proteinuria Anemia, unspecified CBC WITH AUTO DIFFERENTIAL Routine 09/06/2024 8:47 AM EST Chronic kidney disease (CKD) stage G3a/A1, moderately decreased glomerular filtration rate (GFR) between 45-59 mL/min/1.73 square meter and albuminuria creatinine ratio less than 30 mg/g (CMS/HCC) Proteinuria Anemia, unspecified IRON AND TIBC Routine 09/06/2024 8:47 AM EST Chronic kidney disease (CKD) stage G3a/A1, moderately decreased glomerular filtration rate (GFR) between 45-59 mL/min/1.73 square meter and albuminuria creatinine ratio less than 30 mg/g (CMS/HCC) Proteinuria Anemia, unspecified PARATHYROID HORMONE INTACT Routine 09/06/2024 8:47 AM EST Chronic kidney disease (CKD) stage G3a/A1, moderately decreased glomerular filtration rate (GFR) between 45-59 mL/min/1.73 square meter and albuminuria creatinine ratio less than 30 mg/g (CMS/HCC) Proteinuria Anemia, unspecified HEMOGLOBIN A1C Routine 09/06/2024 8:47 AM EST Chronic kidney disease (CKD) stage G3a/A1, moderately decreased glomerular filtration rate (GFR) between 45-59 mL/min/1.73 square meter and albuminuria creatinine ratio less than 30 mg/g (CMS/HCC) Proteinuria Anemia, unspecified FERRITIN Routine 09/06/2024 8:47 AM EST Chronic kidney disease (CKD) stage G3a/A1, moderately decreased glomerular filtration rate (GFR) between 45-59 mL/min/1.73 square meter and albuminuria creatinine ratio less than 30 mg/g (CMS/HCC) Proteinuria Anemia, unspecified CBC AND DIFFERENTIAL Routine 09/06/2024 8:47 AM EST Chronic kidney disease (CKD) stage G3a/A1, moderately decreased glomerular filtration rate (GFR) between 45-59 mL/min/1.73 square meter and albuminuria creatinine ratio less than 30 mg/g (CMS/HCC) Proteinuria Anemia, unspecified VITAMIN B1 Routine 09/06/2024 8:47 AM EST Bariatric surgery status VITAMIN B6 Routine 09/06/2024 8:47 AM EST Bariatric surgery status VITAMIN D 25 HYDROXY Routine 09/06/2024 8:47 AM EST Bariatric surgery status ZINC Routine 09/06/2024 8:47 AM EST Bariatric surgery status SELENIUM SERUM Routine 09/06/2024 8:47 AM EST Bariatric surgery status FOLATE Routine 09/06/2024 8:47 AM EST Bariatric surgery status COMPREHENSIVE METABOLIC PANEL Routine 09/06/2024 8:47 AM EST Bariatric surgery status PREALBUMIN Routine 09/06/2024 8:47 AM EST Bilateral edema of lower extremity VAS US DUPLEX LOWER EXT VENOUS BILAT STAT 09/06/2024 8:38 AM EST Bilateral edema of lower extremity CBC WITH AUTO DIFFERENTIAL Routine 09/02/2024 1:23 PM EST Anemia, unspecified type INTRINSIC FACTOR BLOCKING ANTIBODY Routine 09/02/2024 1:23 PM EST Anemia, unspecified [...] ENDOTRACHEAL(NO CHARGE) Routine 07/26/2024 7:54 AM EST WI LAP SURG GASTRIC REST PROC W GSTR [...] (CMS/HCC) DORSEY URINE CULTURE TUBE Routine 07/15/19 11:38 AM EST Morbid (severe) obesity due [...] Relevant to Health Maintenance Results * (ABNORMAL) Urinalysis with reflex microscopic (09/06/2024 9:21 AM EST) Specific [place] Urine 1.015 1.003 - 1.030 LAB URINALYSIS - AUTOMATED METHOD 09/06/2024 10:35 AM [facility] pH, Urine 5.5 5.0 - 8.0 pH LAB URINALYSIS - AUTOMATED METHOD 09/06/2024 10:35 AM [facility] Leukocytes, Urine Small(A) Negative LAB URINALYSIS - AUTOMATED METHOD 09/06/2024 10:35 AM [facility] Nitrite, Urine Negative Negative LAB URINALYSIS - AUTOMATED METHOD 09/06/2024 10:35 AM [facility] Protein, Urine 30(A) <=Trace mg/dL LAB URINALYSIS - AUTOMATED METHOD 09/06/2024 10:35 AM [facility] Glucose, Urine Negative Negative mg/dL LAB URINALYSIS - AUTOMATED METHOD 09/06/2024 10:35 AM [facility] Ketones, Urine Negative Negative mg/dL LAB URINALYSIS - AUTOMATED METHOD 09/06/2024 10:35 AM [facility] Urobilinogen, Urine 0.2 0.2 - 1.0 mg/dL LAB URINALYSIS - AUTOMATED METHOD 09/06/2024 10:35 AM [facility] Bilirubin, Urine Negative Negative LAB URINALYSIS - AUTOMATED METHOD 09/06/2024 10:35 AM [facility] Blood, Urine Negative Negative LAB URINALYSIS - AUTOMATED METHOD 09/06/2024 10:35 AM [facility] RBC, Urine 3.4 0 - 4 /HPF LAB URINALYSIS - AUTOMATED METHOD 09/06/2024 10:35 AM [facility] WBC, Urine 40.4(H) 0 - 4 /HPF LAB URINALYSIS - AUTOMATED METHOD 09/06/2024 10:35 AM [facility] Squamous Epithelial, Urine >100(H) 0 - 60 /LPF LAB URINALYSIS - AUTOMATED METHOD 09/06/2024 10:35 AM [facility] Bacteria, Urine Negative Negative /HPF LAB URINALYSIS - AUTOMATED METHOD 09/06/2024 10:35 AM [facility] Hyaline Casts, Urine 1.6 0 - 3 /LPF LAB URINALYSIS - AUTOMATED METHOD 09/06/2024 10:35 AM [facility] Urine Urine specimen obtained by clean catch procedure / Unknown Non-blood Collection / Unknown 09/06/2024 9:21 AM EST 09/06/2024 10:22 AM EST us Darci Gamble MD LAB URINE ORDERABLES Final Re sult [facility] [address] [place] [address], [place] [phone] * (ABNORMAL) Microalbumin creatinine urine ratio (09/06/2024 9:21 AM EST) Creatinine, Urine 129.0 mg/dL LAB CHEMISTRY METHOD 09/06/2024 12:09 PM [facility] Microalb, Ur 147.0(H) 0.0 - 29.0 mg/L LAB CHEMISTRY METHOD 09/06/2024 12:09 PM [facility] Microalb/Crea t Ratio 114(H) <30 mg/g creat LAB CHEMISTRY METHOD 09/06/2024 12:09 PM [facility] Urine Urine specimen obtained by clean catch procedure / Unknown Non-blood Collection / Unknown 09/06/2024 9:21 AM EST 09/06/2024 10:22 AM EST us Darci Gamble MD LAB URINE ORDERABLES Final Re sult Performing Organization Address [facility]/ZIP Co de Phone Number [facility] [address] [place] [address], * , urine (09/06/2024 9:21 AM EST) Pathologist [facility] Preg Test, Ur Negative Negative 09/06/2024 10:30 AM EST [facility] Urine Urine specimen obtained by clean catch procedure / Unknown Non-blood Collection / Unknown 09/06/2024 9:21 AM EST 09/06/2024 10:22 AM EST Ana Lilia WESTON LAB URINE ORDERABLES Final R esult Performing Organization Address [facility] Co de Phone Number [facility] [address] [place] [address], * Culture urine (09/06/2024 9:21 AM EST) Only the most recent of2 resultswithin the time period is included. [facility] Culture, Urine 50,000-99,000 CFU/mL Mixed urogenital bela, no uropathogens present. Suggest repeat specimen if clinically indicated. 09/08/2024 12:56 PM EST [facility] Urine Urine specimen obtained by clean catch procedure / Unknown Non-blood Collection / Unknown 09/06/2024 9:21 AM EST 09/06/2024 10:21 AM EST Darci Gamble MD LAB MICROBIOLOGY - GENERAL OR DERABLES Final Result Performing Organization Address [facility]/ZIP Co de Phone Number [facility] [address] [place] [address], * (ABNORMAL) CBC auto differential (09/06/2024 8:47 AM EST) Only the most recent of5 resultswithin the time period is included. Pathologist [facility] WBC 5.3 4.8 - 10.8 K/[facility] LAB HEMETOLOGY METHOD 09/06/2024 9:59 AM [facility] RBC 3.90 3.80 - 4.80 M/[facility] LAB HEMETOLOGY METHOD 09/06/2024 9:59 AM [facility] Hemoglobin 11.7 11.5 - 16.0 g/dL LAB HEMETOLOGY METHOD 09/06/2024 9:59 AM [facility] Hematocrit 34.1(L) 35.0 - 47.0 % LAB HEMETOLOGY METHOD 09/06/2024 9:59 AM [facility] MCV 87.9 79.0 - 98.0 FL LAB HEMETOLOGY METHOD 09/06/2024 9:59 AM [facility] MCH 30.2 27.0 - 32.0 pcg LAB HEMETOLOGY METHOD 09/06/2024 9:59 AM [facility] MCHC 34.3 32.0 - 37.0 g/dL LAB HEMETOLOGY METHOD 09/06/2024 9:59 AM [facility] RDW 16.0(H) 11.0 - 15.0 % LAB HEMETOLOGY METHOD 09/06/2024 9:59 AM [facility] Platelets 238 130 - 400 K/[facility] LAB HEMETOLOGY METHOD 09/06/2024 9:59 AM [facility] MPV 11.7(H) 7.0 - 11.0 FL LAB HEMETOLOGY METHOD 09/06/2024 9:59 AM [facility] NRBC 0.0 <1.0 % LAB HEMETOLOGY METHOD 09/06/2024 9:59 AM [facility] NRBC Absolute 0.00 <0.10 K/[facility] LAB HEMETOLOGY METHOD 09/06/2024 9:59 AM [facility] Neutrophils Relative 70.9 % LAB HEMETOLOGY METHOD 09/06/2024 9:59 AM [facility] Lymphocytes Relative 18.7 % LAB HEMETOLOGY METHOD 09/06/2024 9:59 AM [facility] Monocytes Relative 6.9 % LAB HEMETOLOGY METHOD 09/06/2024 9:59 AM [facility] Eosinophils Relative 2.2 % LAB HEMETOLOGY METHOD 09/06/2024 9:59 AM [facility] Basophils Relative 0.7 % LAB HEMETOLOGY METHOD 09/06/2024 9:59 AM [facility] Immature Granulocytes Relative 0.6 % LAB HEMETOLOGY METHOD 09/06/2024 9:59 AM [facility] Neutrophils Absolute 3.78 1.50 - 7.00 K/mcL LAB HEMETOLOGY METHOD 09/06/2024 9:59 AM [facility] Lymphocytes Absolute 1.00 1.00 - 5.00 K/mcL LAB HEMETOLOGY METHOD 09/06/2024 9:59 AM [facility] Monocytes Absolute 0.37 0.20 - 1.00 K/mcL LAB HEMETOLOGY METHOD 09/06/2024 9:59 AM [facility] Eosinophils Absolute 0.12 0.00 - 0.50 K/mcL LAB HEMETOLOGY METHOD 09/06/2024 9:59 AM [facility] Basophils Absolute 0.04 0.00 - 0.20 K/mcL LAB HEMETOLOGY METHOD 09/06/2024 9:59 AM [facility] Immature Granulocytes Absolute 0.03 0.00 - 0.03 K/mcL LAB HEMETOLOGY METHOD 09/06/2024 9:59 AM [facility] Blood Venous blood specimen / Unknown Venipuncture / Unknown 09/06/2024 8:47 AM EST 09/06/2024 9:08 AM EST us Darci Gamble MD LAB BLOOD ORDERABLES Final Re sult Performing Organization Address [facility]/ZIP Co de Phone Number [facility] [address] [place] [address], [place] [phone] * (ABNORMAL) Iron and TIBC (09/06/2024 8:47 AM EST) Only the most recent of2 resultswithin the time period is included. Iron 46 40 - 150 mcg/dL LAB CHEMISTRY METHOD 09/06/2024 10:20 AM EST [facility] TIBC 188(L) 250 - 450 mcg/dL LAB CHEMISTRY METHOD 09/06/2024 10:20 AM EST [facility] Iron Saturation 24 15 - 50 % LAB CHEMISTRY METHOD 09/06/2024 10:20 AM EST [facility] Blood Venous blood specimen / Unknown Venipuncture / Unknown 09/06/2024 8:47 AM EST 09/06/2024 9:07 AM EST us Darci Gamble MD LAB BLOOD ORDERABLES Final Re sult Performing Organization Address [facility] de Phone Number [facility] [address] [place] [address], [place] [phone] * Zinc (09/06/2024 8:47 AM EST) Pathologist [facility] Zinc 68 60 - 130 ug/dL 09/09/2024 2:57 PM EST [facility] Comment: Elevated results may be due to sample collected in a non-certified trace element-free tube. This test was developed and the performance characteristics determined by [facility]. It has not been cleared or approved by the FDA. The laboratory is regulated under CLIA as qualified to perform high-complexity testing. This test is used for patient testing purposes. It should not be regarded as investigational or for research. Test performed at [facility], [address] , [place], [place] [address] ? [phone] Ann-Marie Kerr MD, PhD - Merchandising Execution Associate Blood Venous blood specimen / Unknown Venipuncture / Unknown 09/06/2024 8:47 AM EST 09/06/2024 9:08 AM EST Ana Lilia WESTON LAB BLOOD ORDERABLES Final R esult Performing Organization Address City/[facility]/ZIP Co de Phone Number [facility] [address] [place] [address] * Selenium serum (09/06/2024 8:47 AM EST) Pathologist [facility] Selenium 109 63 - 160 mcg/L 09/11/2024 7:46 PM EST [facility] Comment: This test was developed and its analytical performance characteristics have been determined by [employer] [place] [place]. It has not been cleared or approved by the U.S. Food and Drug Administration. This assay has been validated pursuant to the CLIA regulations and is used for clinical purposes. Test Performed by [facility], [facility], [address] [place] [address] Edgard Dejesus M.D., Ph.D., Director of Laboratories , CLIA [id number] Blood Venous blood specimen / Unknown Venipuncture / Unknown 09/06/2024 8:47 AM EST 09/06/2024 9:08 AM EST Ana Lilia WESTON LAB BLOOD ORDERABLES Final R esult Performing Organization Address [facility]/ZIP Co de Phone Number [facility] [address] [place] [address] * Vitamin D 25 hydroxy (09/06/2024 8:47 AM EST) Vit D, 25-Hydroxy 36.4 30.0 - 80.0 ng/mL LAB CHEMISTRY METHOD 09/06/2024 12:07 PM EST [facility] Blood Venous blood specimen / Unknown Venipuncture / Unknown 09/06/2024 8:47 AM EST 09/06/2024 9:07 AM EST Ana Lilia WESTON LAB BLOOD ORDERABLES Final R esult [facility] ([facility]) [facility] [address] [place] [address], * Vitamin B1 (09/06/2024 8:47 AM EST) Vitamin B1 Whole Blood 43 38 - 122 ug/L 09/11/2024 9:51 AM EST [facility] Comment: This test was developed and the performance characteristics determined by [facility]. It has not been cleared or approved by the FDA. The laboratory is regulated under CLIA as qualified to perform high-complexity testing. This test is used for patient testing purposes. It should not be regarded as investigational or for research. Test performed at [facility], [address] [place], [place] ??[address] ? [phone] Ann-Marie Kerr MD, PhD - Merchandising Execution Associate Blood Venous blood specimen / Unknown Venipuncture / Unknown 09/06/2024 8:47 AM EST 09/06/2024 9:08 AM EST Ana Lilia WESTON LAB BLOOD ORDERABLES Final [facility] Performing Organization Address City/[facility]/ZIP Co de Phone Number [facility] [address] [place] [address] * (ABNORMAL) Vitamin B6 (09/06/2024 8:47 AM EST) Vitamin B6 (Pyridoxine) Level 2(L) 5 - 50 ug/L 09/10/2024 11:37 AM EST [facility] Comment: This test was developed and the performance characteristics determined by [employer]. It has not been cleared or approved by the FDA. The laboratory is regulated under CLIA as qualified to perform high-complexity testing. This test is used for patient testing purposes. It should not be regarded as investigational or for research. Test performed at [facility], [address], [place], [place] ??[address] ? [phone] Ann-Marie Kerr MD, PhD - Merchandising Execution Associate Blood Venous blood specimen / Unknown Venipuncture / Unknown 09/06/2024 8:47 AM EST 09/06/2024 9:16 AM EST Ana Lilia WESTON LAB BLOOD ORDERABLES Final R esult Performing Organization Address City/[facility]/ZIP Co de Phone Number [facility] [address] [place] [address] * Prealbumin (09/06/2024 8:47 AM EST) Prealbumin 22 18 - 45 mg/dL LAB CHEMISTRY METHOD 09/06/2024 11:20 AM EST [facility] Blood Venous blood specimen / Unknown Venipuncture / Unknown 09/06/2024 8:47 AM EST 09/06/2024 9:07 AM EST Ana Lilia WESTON LAB BLOOD ORDERABLES Final R esult Performing Organization Address [facility] [place]/[facility] de Phone Number [facility] [address] [place] [address], [place] [phone] * Phosphorus (09/06/2024 8:47 AM EST) Only the most recent of2 resultswithin the time period is included. Phosphorus 2.7 2.5 - 4.5 mg/dL LAB CHEMISTRY METHOD 09/06/2024 11:20 AM EST [facility] Blood Venous blood specimen / Unknown Venipuncture / Unknown 09/06/2024 8:47 AM EST 09/06/2024 9:07 AM EST Darci Gamble MD LAB BLOOD ORDERABLES Final Re sult Performing Organization Address City/[facility] Co de Phone Number [facility] [address] [place] [address], * (ABNORMAL) Parathyroid hormone intact (09/06/2024 8:47 AM EST) Pathologist [facility] PTH 129.2(H) 18.5 - 88.0 pcg/mL LAB CHEMISTRY METHOD 09/06/2024 12:07 PM EST [facility] Blood Venous blood specimen / Unknown Venipuncture / Unknown 09/06/2024 8:47 AM EST 09/06/2024 9:07 AM EST us Darci Gamble MD LAB BLOOD ORDERABLES Final Re sult Performing Organization Address [facility] [place]/[facility]/ZIP Co de Phone Number [facility] [address] [place] [address], [place] [phone] * Hemoglobin A1c (09/06/2024 8:47 AM EST) [facility] Hemoglobin A1C 4.9 <6.5 % LAB CHEMISTRY METHOD 09/09/2024 9:30 PM EST [facility] Mean Bld Glu Estim. 94 mg/dL LAB CHEMISTRY METHOD 09/09/2024 9:30 PM EST [facility] Blood Venous blood specimen / Unknown Venipuncture / Unknown 09/06/2024 8:47 AM EST 09/06/2024 9:08 AM EST us Darci Gamble MD LAB BLOOD ORDERABLES Final Re sult [facility] [address] [place] [address], [place] [phone] * Folate (09/06/2024 8:47 AM EST) Pathologist [facility] Folate 5.4 2.8 - 17.0 ng/ml LAB CHEMISTRY METHOD 09/06/2024 11:20 AM EST [facility] Blood Venous blood specimen / Unknown Venipuncture / Unknown 09/06/2024 8:47 AM EST 09/06/2024 9:07 AM EST Ana Lilia WESTON LAB BLOOD ORDERABLES Final R esult Performing Organization Address [facility] [place]/[facility]/ZIP Co de Phone Number [facility] [address] [place] [address], [place] [phone] * Ferritin (09/06/2024 8:47 AM EST) Only the most recent of2 resultswithin the time period is included. Pathologist [facility] Ferritin 17 8 - 252 ng/mL LAB CHEMISTRY METHOD 09/06/2024 11:20 AM [facility] Blood Venous blood specimen / Unknown Venipuncture / Unknown 09/06/2024 8:47 AM EST 09/06/2024 9:07 AM EST Darci Gamble MD LAB BLOOD ORDERABLES Final Re sult Performing Organization Address [facility] [place]/[facility]/ZIP Co de Phone Number [facility] [address] [place] [address], [place] [phone] * (ABNORMAL) Comprehensive metabolic panel (09/06/2024 8:47 AM EST) Pathologist [facility] Sodium 141 133 - 145 mmol/L LAB CHEMISTRY METHOD 09/06/2024 11:20 AM [facility] Potassium 3.8 3.5 - 5.5 mmol/L LAB CHEMISTRY METHOD 09/06/2024 11:20 AM [facility] Chloride 110 96 - 110 mmol/L LAB CHEMISTRY METHOD 09/06/2024 11:20 AM [facility] CO2 26 21 - 32 mmol/L LAB CHEMISTRY METHOD 09/06/2024 11:20 AM [facility] Anion Gap 5 3 - 11 LAB CHEMISTRY METHOD 09/06/2024 11:20 AM [facility] Glucose 82 70 - 100 mg/dL LAB CHEMISTRY METHOD 09/06/2024 11:20 AM [facility] BUN 12 5 - 25 mg/dL LAB CHEMISTRY METHOD 09/06/2024 11:20 AM [facility] Creatinine 1.05 0.50 - 1.10 mg/dL LAB CHEMISTRY METHOD 09/06/2024 11:20 AM [facility] eGFR 69 >=60 mL/min/1. 73m2 LAB CHEMISTRY METHOD 09/06/2024 11:20 AM [facility] Comment:Calculation based on the??Chronic Kidney Disease Epidemiology Collaboration (CKD-EPI) equation refit??without adjustment for race. BUN/Creatinine Ratio 11.4 LAB CHEMISTRY METHOD 09/06/2024 11:20 AM [facility] Calcium 8.8 8.5 - 10.5 mg/dL LAB CHEMISTRY METHOD 09/06/2024 11:20 AM [facility] AST (SGOT) 14 10 - 42 unit/L LAB CHEMISTRY METHOD 09/06/2024 11:20 AM [facility] ALT (SGPT) 22 10 - 60 unit/L LAB CHEMISTRY METHOD 09/06/2024 11:20 AM [facility] Alkaline Phosphatase 95 42 - 121 unit/L LAB CHEMISTRY METHOD 09/06/2024 11:20 AM [facility] Total Protein 5.7(L) 6.0 - 8.0 g/dL LAB CHEMISTRY METHOD 09/06/2024 11:20 AM [facility] Albumin 2.8(L) 3.2 - 5.0 g/dL LAB CHEMISTRY METHOD 09/06/2024 11:20 AM [facility] Total Bilirubin 0.4 0.0 - 1.4 mg/dL LAB CHEMISTRY METHOD 09/06/2024 11:20 AM [facility] Blood Venous blood specimen / Unknown Venipuncture / Unknown 09/06/2024 8:47 AM EST 09/06/2024 9:07 AM EST Ana Lilia WESTON LAB BLOOD ORDERABLES Final R esult [facility] ([facility]) [facility] [address] [place] [address], [place] [phone] * Vascular US duplex lower extremity venous bilateral (09/06/2024 8:38 AM EST) Anatomical Region Laterality Modality Vascular, Abdomen Ultrasound 09/06/2024 9:01 AM EST Impressions 09/06/2024 9:02 AM EST NO RIGHT OR LEFT LOWER EXTREMITY DEEP VENOUS THROMBOSIS. -------- FINAL REPORT -------- Dictated By: JEFFRYE JOSE Dictated Date: 09/06/2024 09:01 ET Assigned Physician: JEFFREY JOSE Reviewed and Electronically Signed By: JEFFREY JOSE Signed Date: 09/06/2024 09:02 ET Workstation ID: [id number] Transcribed By: Self Edit Transcribed Date: 09/06/2024 [...] fluid collection or mass. Procedure Note Jeffrey Jose MD - 09/06/2024 PROCEDURE: VAS US DUPLEX [...] -------- FINAL REPORT -------- Dictated By: JEFFREY JOSE Dictated Date: 09/06/2024 09:01 ET Assigned Physician: JEFFREY JOSE Reviewed and Electronically Signed By: JEFFREY JOSE Signed Date: 09/06/2024 09:02 ET Workstation ID: [id number] Transcribed By: Self Edit Transcribed Date: 09/06/2024 09:01 ET us Ana Lilia WESTON CV VASCULAR PROCEDURES Final Result * Intrinsic factor blocking antibody (09/02/2024 1:23 PM EST) Pathologist [facility] Intrinsic Factor Blocking Antibody Negative Negative 09/05/2024 12:40 PM EST [facility] Comment: Positive in 50% of persons with pernicious anemia. Very high serum levels of vitamin B12 may give false positive results for intrinsic factor antibody. ??No sample should be collected from a patient who has received vitamin B12 injection therapy within the past week. Test performed at [facility], [address] , [place], [place] ??[address] ? [phone] Ann-Marie Kerr MD, PhD - Merchandising Execution Associate Blood Venous blood specimen / Unknown Venipuncture / Unknown 09/02/2024 1:23 PM EST 09/02/2024 1:37 PM EST us Reji Hernandez MD LAB BLOOD ORDERABLES Final R esult [facility] [address] [place] [address] * (ABNORMAL) Vitamin B12 (09/02/2024 1:23 PM EST) Pathologist [facility] Vitamin B-12 911(H) 250 - 900 pcg/mL LAB CHEMISTRY METHOD 09/02/2024 2:32 PM EST [facility] Blood Venous blood specimen / Unknown Venipuncture / Unknown 09/02/2024 1:23 PM EST 09/02/2024 1:37 PM EST Reji Hernandez MD LAB BLOOD ORDERABLES Final R esult Performing Organization Address City/[facility]/ZIP Co de Phone Number [facility] [address] [place] [address], [place] [phone] * (ABNORMAL) Magnesium (07/28/2024 8:49 AM EST) Only the most recent of2 resultswithin the time period is included. Pathologist [facility] Magnesium 1.8(L) 1.9 - 2.6 mg/dL LAB CHEMISTRY METHOD 07/28/2024 9:52 AM EST [facility] Blood Venous blood specimen / Unknown Venipuncture / Unknown 07/28/2024 8:49 AM EST 07/28/2024 9:04 AM EST Cassandra WESTON LAB BLOOD ORDERABLES Final Resu lt Performing Organization Address [facility] [place]/[facility]/ZIP Co de Phone Number [facility] [address] [place] [address], [place] [phone] * (ABNORMAL) Basic metabolic panel (07/28/2024 8:49 AM EST) Only the most recent of3 resultswithin the time period is included. [facility] Sodium 141 133 - 145 mmol/L LAB CHEMISTRY METHOD 07/28/2024 9:52 AM EST [facility] Potassium 4.4 3.5 - 5.5 mmol/L LAB CHEMISTRY METHOD 07/28/2024 9:52 AM [facility] Chloride 112(H) 96 - 110 mmol/L LAB CHEMISTRY METHOD 07/28/2024 9:52 AM [facility] CO2 21 21 - 32 mmol/L LAB CHEMISTRY METHOD 07/28/2024 9:52 AM EST [facility] Anion Gap 8 3 - 11 LAB CHEMISTRY METHOD 07/28/2024 9:52 AM [facility] Glucose 76 70 - 100 mg/dL LAB CHEMISTRY METHOD 07/28/2024 9:52 AM [facility] BUN 20 5 - 25 mg/dL LAB CHEMISTRY METHOD 07/28/2024 9:52 AM [facility] Creatinine 1.30(H) 0.50 - 1.10 mg/dL LAB CHEMISTRY METHOD 07/28/2024 9:52 AM [facility] eGFR 53(L) >=60 mL/min/1. 73m2 LAB CHEMISTRY METHOD 07/28/2024 9:52 AM [facility] Comment:Calculation based on the??Chronic Kidney Disease Epidemiology Collaboration (CKD-EPI) equation refit??without adjustment for race. BUN/Creatinine Ratio 15.4 LAB CHEMISTRY METHOD 07/28/2024 9:52 AM [facility] Calcium 8.2(L) 8.5 - 10.5 mg/dL LAB CHEMISTRY METHOD 07/28/2024 9:52 AM [facility] Blood Venous blood specimen / Unknown Venipuncture / Unknown 07/28/2024 8:49 AM EST 07/28/2024 9:04 AM EST Cassandra WESTON LAB BLOOD ORDERABLES Final Resu lt [facility] [address] [place] [address], * TH AN ENDOTRACHEAL(NO CHARGE) (07/26/2024 7:54 AM EST) Radha Joyner CRNA - 07/26/2024 7:54 AM EST Radha Lacey CRNA ? 07/26/2024 ??7:55 AM General Information and Staff Patient location during procedure: [place] Anesthesiologist: Tameka Gibson MD Resident/PATENT PROSECUTION ATTORNEY: Radha Lacey CRNA Performed: resident/PATENT PROSECUTION ATTORNEY/CAA Performed by: Radha Hard, PATENT PROSECUTION ATTORNEY Authorized by: Tameka Gibson MD ?? Intubation [...] and culture (07/15/2024 11:38 AM EST) Pathologist [facility] Specific [place] Urine 1.013 1.003 - 1.030 LAB URINALYSIS - AUTOMATED METHOD 07/15/2024 12:27 PM [facility] pH, Urine 5.0 5.0 - 8.0 pH LAB URINALYSIS - AUTOMATED METHOD 07/15/2024 12:27 PM [facility] Leukocytes, Urine Small(A) Negative LAB URINALYSIS - AUTOMATED METHOD 07/15/2024 12:27 PM [facility] Nitrite, Urine Negative Negative LAB URINALYSIS - AUTOMATED METHOD 07/15/2024 12:27 PM [facility] Protein, Urine 100(A) <=Trace mg/dL LAB URINALYSIS - AUTOMATED METHOD 07/15/2024 12:27 PM [facility] Glucose, Urine Negative Negative mg/dL LAB URINALYSIS - AUTOMATED METHOD 07/15/2024 12:27 PM [facility] Ketones, Urine Negative Negative mg/dL LAB URINALYSIS - AUTOMATED METHOD 07/15/2024 12:27 PM [facility] Urobilinogen, Urine 0.2 0.2 - 1.0 mg/dL LAB URINALYSIS - AUTOMATED METHOD 07/15/2024 12:27 PM [facility] Bilirubin, Urine Negative Negative LAB URINALYSIS - AUTOMATED METHOD 07/15/2024 12:27 PM [facility] Blood, Urine Trace(A) Negative LAB URINALYSIS - AUTOMATED METHOD 07/15/2024 12:27 PM [facility] RBC, Urine 2.8 0 - 4 /HPF LAB URINALYSIS - AUTOMATED METHOD 07/15/2024 12:27 PM [facility] WBC, Urine 40.5(H) 0 - 4 /HPF LAB URINALYSIS - AUTOMATED METHOD 07/15/2024 12:27 PM [facility] Squamous Epithelial, Urine 21 0 - 60 /LPF LAB URINALYSIS - AUTOMATED METHOD 07/15/2024 12:27 PM [facility] Bacteria, Urine Negative Negative /HPF LAB URINALYSIS - AUTOMATED METHOD 07/15/2024 12:27 PM [facility] Hyaline Casts, Urine 1.2 0 - 3 /LPF LAB URINALYSIS - AUTOMATED METHOD 07/15/2024 12:27 PM [facility] Urine Urine specimen obtained by clean catch procedure / Unknown Non-blood Collection / Unknown 07/15/2024 11:38 AM EST 07/15/2024 12:14 PM EST us Ana Lilia WESTON LAB URINE ORDERABLES Final R esult [facility] [address] [place] [address], * Dorsey urine culture tube (07/15/2024 11:38 AM EST) Pathologist [facility] Extra Tube Hold for add-ons. 07/15/2024 2:01 PM EST [facility] Comment:Auto resulted. Urine Urine specimen obtained by clean catch procedure / Unknown Non-blood Collection / Unknown 07/15/2024 11:38 AM EST 07/15/2024 12:14 PM EST us Ana Lilia WESTON LAB URINE ORDERABLES Final R esult [facility] [address] [place] [address], [place] [phone] * Prothrombin time with INR (07/15/2024 11:38 AM EST) [facility] Protime 12.3 10.6 - 13.9 sec LAB COAGULATION METHOD 07/15/2024 12:26 PM [facility] INR 1.0 LAB COAGULATION METHOD 07/15/2024 12:26 PM [facility] Blood Venous blood specimen / Unknown Venipuncture / Unknown 07/15/2024 11:38 AM EST 07/15/2024 12:14 PM EST us Ana Lilia WESTON LAB BLOOD ORDERABLES Final [facility] [address] [place] [address], [place] [phone] * Type and screen (07/15/2024 11:38 AM EST) [facility] ABO Group A 07/15/2024 2:07 PM [facility] Rh Type Positive 07/15/2024 2:07 PM [facility] Antibody Screen Negative 07/15/2024 2:07 PM [facility] Blood Venous blood specimen / Unknown Venipuncture / Unknown 07/15/2024 11:38 AM EST 07/15/2024 12:14 PM EST Ana Lilia WESTON LAB BLOOD BANK TEST ORDERABL ES Final Result Performing Organization Address [facility] [place] Co de Phone Number [facility]) [facility] [address] [place] [address], [place] [phone] * ECG 12 lead (07/15/2024 11:30 AM EST) Ventricular Rate ECG 52 BPM G[facility] Atrial Rate 52 BPM GEMUSE P-R Interval 136 ms GEMUSE QRS Duration 70 ms GEMUSE Q-T Interval 398 ms GEMUSE QTc 370 ms GEMUSE P Wave [place] 23 degrees GEMUSE R [place] 6 degrees GEMUSE T [place] 23 degrees GEMUSE ECG Interpretation Sinus bradycardia Low voltage QRS Borderline ECG No previous ECGs available Confirmed by [employer] ([id number]) on 07/15/2024 4:46:00 PM GEM[facility] 07/15/2024 11:3 0 AM EST 07/15/2024 4:46 PM EST Ana Lilia WESTON ECG ORDERABLES Final Result Performing Organization Address [facility] [place] Co de Phone Number G[facility] * XR Chest 2 Views (06/27/2024 8:46 AM EST) Anatomical Region Laterality Modality Body Radiographic Simran ging 06/27/2024 9:01 AM EST Impressions 06/27/2024 9:02 AM EST Normal examination of the chest. Code 83977 -------- FINAL REPORT -------- Dictated By: Alex Rolle Dictated Date: 06/27/2024 09:01 ET Assigned Physician: Alex Rolle Reviewed and Electronically Signed By: Alex Rolle Signed Date: 06/27/2024 09:02 ET Workstation ID: [id number] Transcribed By: Self Edit Transcribed Date: 06/27/2024 [...] IMPRESSION: Normal examination of the chest. Code 64987 -------- FINAL REPORT -------- Dictated By: Alex Rolle Dictated Date: 06/27/2024 09:01 ET Assigned Physician: Alex Rolle Reviewed and Electronically Signed By: Alex Rolle Signed Date: 06/27/2024 09:02 ET Workstation ID: [id number] Transcribed By: Self Edit Transcribed Date: 06/27/2024 [...] Most Recently Relevant to Health Maintenance Insurance [employer] Care Teams Sample Checker Relationship Specialty Start Date End Date Delores Silva MD [address] [facility] , [address] [place] [address] Physician Associ D/B/A: [facility] [place] PCP - General Internal Medicine 02/09/22
--- OUTSIDE RECORDS SUMMARY | 2024-09-17 10:12 | XMS_ITS | Clinical Summary ---
Author Organization [facility] Facility Address [address] [place] [id number] Care Team Providers Care Permit Specialist Name Role Phone Delores Mancia MD Primary Care Provider [phone] Allergies Active Allergy Reactions Criticality Noted Date [...] EACH DAY. 90 tablet 11 04/06/2023 Active chlorthalidone 25 MG tablet Take 0.5 tablets (12.5 mg total) by mouth 1 (one) time each day 45 tablet 09/12/2024 12/12/19 25 Active Active Problems Problem Noted Date Diagnosed Date Hypertensive disorder 07/25/2024 Severe obesity 10/23/2023 Abnormal finding on screening [...] Encounters Date Type Department Care Team Description 09/16/2024 Refill [facility] [address] [place] [address] Darci Gamble MD Persistent proteinuria; Chronic kidney disease stage 1 09/12/2024 9:45 AM EST Telemedicine [facility] [address] [phone] Darci Gamble MD Chronic kidney disease, stage 2 (mild) (Primary Dx); Persistent proteinuria 09/06/2024 Orders Only [facility] [address] [address] Darci Gamble MD 07/11/2024 Office Communication [facility] [address] [phone] Zoey Cuevas from Last 3 Months Immunizations [...] Orders Only [facility] [address] [phone] Darci Gamble MD [address] [phone] Chronic kidney disease, stage 2 (mild); Persistent proteinuria 10/07/2024 2:00 PM EDT Office Visit [facility] [address] [place] [address] Darci Gamble MD [address] [phone] Health Maintenance Due Date Last Done Comments Pneumococcal Vaccine: Pediat rics (0 to 5 Years) and At-Risk Patients (6 to 64 Years) (1 of 2 - PCV) 11/24/1989 Influenza Vaccine (#1) 2024 2, 05/12/2021, 05/05/2020, Additional history exists Hepatitis B Vaccine Completed 09/07/1998, 05/06/1998, 02/17/1998 Procedures Procedure Name Priority Date/Time Associated Diagnosis Comments URINE CULTURE Routine 09/06/2024 9:21 AM EST URINE ALBUMIN / CREATININE RATIO Routine 09/06/2024 9:21 AM EST URINALYSIS RFX MICROSCOPIC Routine 09/06/2024 9:21 AM EST HEMOGLOBIN A1C Routine 09/06/2024 8:47 AM EST PTH, INTACT Routine 09/06/2024 8:47 AM EST FERRITIN Routine 09/06/2024 8:47 AM EST PHOSPHATE ( PHOSPHORUS) Routine 09/06/2024 8:47 AM EST IRON PANEL (HC) Routine 09/06/2024 8:47 AM EST CBC WITH AUTO DIFFERENTIAL Routine 09/06/2024 8:47 AM EST from Last 3 Months Results * (ABNORMAL) Urine Albumin / Creatinine Ratio (09/06/2024 9:21 AM EST) Creatinine, Urine 129.0 mg/dL [facility] Microalbumin Urine Random 147.0(H) 0.0 - 29.0 mg/L [facility] Microalbumin/Cre atinine Ratio 114(H) <30 mg/g creat [facility] 09/06/2024 9:21 AM EST 09/06/2024 10:22 AM EST us Darci Gamble MD LAB URINE ORDERABLES Final Re sult Performing Organization Address City/State/[facility] Co de Phone Number [facility] [address] [place] [address] * (ABNORMAL) Urinalysis Reflex Microscopic (09/06/2024 9:21 AM EST) Pathologist [facility] Specific [place] 1.015 1.003 - 1.030 [facility] pH Urine 5.5 5.0 - 8.0 pH [facility] LEUKOCYTES, URINE Small(A) Negative [facility] Nitrite, Urine Negative Negative [facility] Protein, Urine 30(A) <=Trace mg/dL [facility] Glucose Urine Negative Negative mg/dL [facility] Ketones, Urine Negative Negative mg/dL [facility] Urobilinogen Urine 0.2 0.2 - 1.0 mg/dL [facility] Bilirubin Urine Negative Negative [facility] Blood Urine Negative Negative [facility] RBC, Urine 3.4 0 - 4 /HPF [facility] WBC, Urine 40.4(H) 0 - 4 /HPF [facility] Squamous Epithelial, Urine >100(H) 0 - 60 /LPF [facility] Bacteria, Urine Negative Negative /HPF [facility] Hyaline Casts, UA 1.6 0 - 3 /LPF [facility] 09/06/2024 9:21 AM EST 09/06/2024 10:22 AM EST Darci Gamble MD LAB URINE ORDERABLES Final Re sult Performing Organization Address [facility] Co de Phone Number [facility] [address] [place] [address] * Urine Culture (09/06/2024 9:21 AM EST) Culture Result, Urine 50,000-99,000 CFU/mL Mixed urogenital bela, no uropathogens present. Suggest repeat specimen if clinically indicated. [facility] 09/06/2024 9:21 AM EST 09/06/2024 10:21 AM EST Darci Gamble MD LAB URINE ORDERABLES Final Re sult Performing Organization Address [facility] Co de Phone Number [facility] [address] [place] [address] * (ABNORMAL) Iron Panel (09/06/2024 8:47 AM EST) Iron 46 40 - 150 mcg/dL [facility] TIBC 188(L) 250 - 450 mcg/dL [facility] Iron Saturation (TSat) 24 15 - 50 % [facility] 09/06/2024 8:47 AM EST 09/06/2024 9:07 AM EST us Darci Gamble MD LAB [id number] SOLICITED RESULTS Final Result [facility] [address] [place] [address] * (ABNORMAL) CBC auto differential (09/06/2024 8:47 AM EST) WBC 5.3 4.8 - 10.8 K/[facility] RBC 3.90 3.80 - 4.80 M/[facility] Hgb 11.7 11.5 - 16.0 g/dL [facility] Hematocrit 34.1(L) 35.0 - 47.0 % [facility] MCV 87.9 79.0 - 98.0 FL [facility] MCH 30.2 27.0 - 32.0 pcg [facility] MCHC 34.3 32.0 - 37.0 g/dL [facility] RDW 16.0(H) 11.0 - 15.0 % [facility] Platelets 238 130 - 400 K/[facility] MPV 11.7(H) 7.0 - 11.0 FL [facility] nRBC Count 0.0 <1.0 % [facility] NRBC Absolute 0.00 <0.10 K/[facility] Bands Relative 70.9 % [facility] Lymphocyte Realative Percent 18.7 % [facility] Monocyte Relative Percent 6.9 % [facility] Eosinophil Relative Percent 2.2 % [facility] Basophils Relative Diff 0.7 % [facility] Immature Granulocytes 0.6 % [facility] Neutrophils Absolute 3.78 1.50 - 7.00 K/[facility] Lymphocytes Absolute 1.00 1.00 - 5.00 K/[facility] Monocytes Absolute 0.37 0.20 - 1.00 K/[facility] Eosinophil Absolute 0.12 0.00 - 0.50 K/[facility] Basophil ABS 0.04 0.00 - 0.20 K/[facility] Immature Grans (Absolute) 0.03 0.00 - 0.03 K/[facility] 09/06/2024 8:47 AM EST 09/06/2024 9:08 AM EST Darci Gamble MD LAB BLOOD ORDERABLES Final Re sult Performing Organization Address [facility]/ZIP Co de Phone Number [facility] [address] [place] [address] * Phosphorus (09/06/2024 8:47 AM EST) Phosphorus 2.7 2.5 - 4.5 mg/dL [facility] 09/06/2024 8:47 AM EST 09/06/2024 9:07 AM EST Darci Gamble MD LAB BLOOD ORDERABLES Final Re sult Performing Organization Address [facility] Co de Phone Number [facility] [address] [place] [address] * (ABNORMAL) PTH, Intact (09/06/2024 8:47 AM EST) PTH 129.2(H) 18.5 - 88.0 pcg/mL [facility] 09/06/2024 8:47 AM EST 09/06/2024 9:07 AM EST Darci Gamble MD LAB BLOOD ORDERABLES Final Re sult Performing Organization Address City/[facility]/ZIP Co de Phone Number [facility] [address] [place] [address] * Hemoglobin A1c (09/06/2024 8:47 AM EST) Hemoglobin A1C 4.9 <6.5 % [facility] Estimated Average Glucose 94 mg/dL [facility] 09/06/2024 8:47 AM EST 09/06/2024 9:08 AM EST Darci Gamble MD LAB BLOOD ORDERABLES Final Re sult Performing Organization Address [facility] Co de Phone Number [facility] [address] [place] [address] * Ferritin (09/06/2024 8:47 AM EST) Ferritin 17 8 - 252 ng/mL [facility] 09/06/2024 8:47 AM EST 09/06/2024 9:07 AM EST Darci Gamble MD LAB BLOOD ORDERABLES Final Re sult Performing Organization Address [facility] Co de Phone Number [facility] [address] [place] [address] from Last 3 Months Insurance [facility] MEDICAID [facility] MEDICAID Care Teams Permit Specialist Relationship Specialty Start Date End Date Delores Mancia MD [address] [place], [place] PCP - General 07/20/20
--- OUTSIDE RECORDS SUMMARY | 2024-09-17 10:12 | XMS_ITS | Encounter Summary ---
Author Organization [facility] Address [address] [place] [address] Care Team Providers Care Compliance Investigator Name Role Phone Delores Silva MD Primary Care Provider [phone] Reason for Referral * Imaging (Emergency) - Closed Specialty Diagnoses / Procedures Referred By Alphonso cooper Referred To Contact Diagnoses Bilateral edema of lower extremity Procedures Vascular US duplex lower extremity venous bilateral Ana Lilia Bruce PA [address] [address] Phone: tel: fax: [facility] Referral ID Status Reason Start Date Expiration Date Visits Re quested Visits Authorized [id number] Closed 09/05/2024 09/05/2025 1 1 Reason for Visit * Imaging (Emergency) - Closed Specialty Diagnoses / Procedures Referred By Alphonso cooper Referred To Contact Diagnoses Bilateral edema of lower extremity Procedures Vascular US duplex lower extremity venous bilateral Ana Lilia Bruce PA [address] [address] Phone: tel: fax: [facility] Referral ID Status Reason Start Date Expiration Date Visits Re quested Visits Authorized [id number] Closed 09/05/2024 09/05/2025 1 1 Encounter Details Date Type Department Care Team (Latest Contact Info) Description 09/06/2024 7:50 AM EST - 09/06/2024 11:59 PM EST Hospital Encounter [facility] [address] [place] [address] Bilateral edema of lower extremity Discharge Disposition: Home or Self Care Social [...] AM EST documented as of this encounter Medications at Time of Discharge [...] or Self Care documented in this encounter Plan of Treatment Upcoming Encounters Date Type Department Care Team (Late st Contact Info) Description 09/23/2024 11:30 AM EDT Office Visit Bariatric Surgery - [place] [address] [facility] [address] [place] [phone] Ana Lilia Bruce PA [address] [facility] [address] [place] [address] 09/30/2024 1:[address] [facility] [address] [facility] 2nd [place] [phone] documented as of this encounter Procedures Procedure Name Priority Date/Time Associated Diagnosis Comments VAS US DUPLEX LOWER EXT VENOUS BILAT STAT 09/06/2024 8:38 AM EST Bilateral edema of lower extremity documented in this encounter Results * Vascular US duplex lower extremity venous bilateral (09/06/2024 8:38 AM EST) Anatomical Region Laterality Modality Vascular, Abdomen Ultrasound 09/06/2024 9:01 AM EST Impressions 09/06/2024 9:02 AM EST NO RIGHT OR LEFT LOWER EXTREMITY DEEP VENOUS THROMBOSIS. -------- FINAL REPORT -------- Dictated By: AAMIR CHAMBERLAIN Dictated Date: 09/06/2024 09:01 ET Assigned Physician: AAMIR CHAMBERLAIN Reviewed and Electronically Signed By: AAMIR CHAMBERLAIN Signed Date: 09/06/2024 09:02 ET Workstation ID: [id number] Transcribed By: Self Edit Transcribed Date: 09/06/2024 [...] ??No fluid collection or mass. Procedure Note Aamir Chamberlain MD - 09/06/2024 PROCEDURE: VAS US [...] THROMBOSIS. -------- FINAL REPORT -------- Dictated By: AAMIR CHAMBERLAIN Dictated Date: 09/06/2024 09:01 ET Assigned Physician: AAMIR CHAMBERLAIN Reviewed and Electronically Signed By: AAMIR CHAMBERLAIN Signed Date: 09/06/2024 09:02 ET Workstation ID: [id number] Transcribed By: Self Edit Transcribed Date: 09/06/2024 09:01 ET us Ana Lilia WESTON CV VASCULAR PROCEDURES Final Result documented in this encounter Visit Diagnoses Diagnosis Bilateral edema of lower extremity documented in this encounter Care Teams Compliance Investigator Relationship Specialty Start Date End Date Delores Silva MD [address] [place] [address] , [address] [place] [address] Physician Associ D/B/A: [facility] [place], [place] PCP - General Internal Medicine 02/09/22 documented as of this encounter
--- OUTSIDE RECORDS SUMMARY | 2024-09-17 10:12 | XMS_ITS | Encounter Summary ---
Author Organization [facility] Address [address] [address] Phone Care Team Providers Care Corporate Representative Name Role Phone Delores Mancia MD Primary Care Provider [phone] Encounter Details Date Type Department Care Team (Late st Contact Info) Description 09/12/2024 9:45 AM EST Telemedicine [facility]. [address] [address] Darci Gamble MD [address] [address] Chronic kidney disease, stage 2 (mild) (Primary Dx); Persistent proteinuria Social History Tobacco Use Types Packs/Day Years [...] on file documented as of this encounter Patient Instructions * Patient Instructions* Darci Gamble MD - 09/12/2024 9:45 AM EST Sodium and Your CKD Diet: How to Spice Up Your Cooking What is sodium? Sodium is a mineral found naturally in foods and is the major part of table salt. What are the effects of eating too much sodium? When your kidneys are not healthy, extra sodium and fluid build up in your body. This can cause swollen ankles, puffiness, a rise in blood pressure, shortness of breath, and/or fluid around your heart and lungs. See the following table for suggestions on how to reduce sodium in your diet. LIMIT THE [AMOUNT OF... FOOD TO LIMIT BECAUSE OF THEIR HIGH SODIUM CONTENT ACCEPTABLE SUBSTITUTES SALT & SALT SEASONINGS Table salt Seasoning salt Garlic salt Onion salt Celery salt Lemon pepper Lite salt Meat tenderizer Bouillon cubes Flavor enhancers Fresh garlic, fresh onion, garlic powder, onion powder, black [pepper, lemon juice, low-sodium/salt-free seasoning blends, vinegar SALTY FOODS Barbecue sauce Steak sauce Soy sauce Teriaky sauce Oyster sauce Salted Snacks such as Crackers Potato chips [place] chips Pretzels Tortilla chips Nuts Popcorn [place] seeds Homemade or low- sodium sauces and salad dressings; Vinegar, dry mustard, unsalted popcorn, pretzels, tortilla or corn chips Cured Foods Ham Salt pork Martell Sauerkraut Pickles, pickle relish Lox & Muniz Olives Fresh beef, veal, pork, poultry, fish, eggs [place] MEATS Hot Dogs Cold cuts, deli meats Pastrami Sausage Corned beef Spam Low-salt deli meats PROCESSED FOODS Buttermilk Cheese Canned: Soups Tomato products Vegetable juices Canned vegetables Convenience Foods such as: TV Dinners Canned raviolis [place] Macaroni & Cheese Spaghetti Frozen prepared foods Fast foods Natural cheese (1-2 oz Per week) Homemade or shay,1- sodium soups, canned food without added salt Homemade casseroles without added salt, made with fresh or raw vegetables, fresh meat, tracy, pasta, or unsalted canned vegetables Some salt or sodium is needed for body water balance. But when your kidneys lose the ability to control sodium and water balance, you may experience the following: thirst fluid gain high blood pressure discomfort during dialysis By using less sodium in your diet, you can control these problems. Hints to keep your sodium intake down Cook with herbs and spices instead of salt. (Refer to Spice Up Your Cooking section for further suggestions.) Read food labels and choose those foods low in sodium. Avoid salt substitutes and specialty low-sodium foods made with salt substitutes because they are high in potassium. When eating out, ask for meat or fish without salt. Ask for gravy or sauce on the side; these may contain large amounts of salt and should be used in small amounts . Limit use of canned, processed and frozen foods. Some information about reading labels Understanding the terms: Sodium Free - Only a trivial amount of sodium per serving. Very Low Sodium - 35 mg or less per serving. Low Sodium - 140 mg or less per serving. Reduced Sodium - Foods in which the level of sodium is reduced by 25%. Light or Lite in Sodium - Foods in which the sodium is reduced by at least 50% . Simple rule of thumb : If salt is listed in the first five ingredients, the item is probably too high in sodium to use. All food labels now have milligrams (mg) of sodium listed. Follow these steps when reading the sodiwn information on the label: 1. Know how much sodium you are allowed each day. Remember that there are 1000 milligrams (mg) in 1gram. For [id number], if your diet prescription is 2 grams of sodium , your limit is 2000 milligrams per day. Consider the sodium value or other food to be eaten during the day. 2. Look at the package label. Check the serving size. Nutrition values are expressed per mee g. How does this compare to your total daily allowance? If the sodium level is 500 mg or more per serving, the item is not a good choice. 3. Compare labels of similar products. Select the lowest sodium level for the same serving size. How to Spice Up Your Cooking Giving up salt does not mean giving up flavor. Learn to season your food with herbs and spices. Be creative and experiment for a new and exciting flavor. What kinds of spices and herbs should I use instead of salt to add flavor? Try the following spices with the foods listed. Allspice: Use with beef, fish, beets, cabbage, canots, peas, fruit. Basil: Use with beef, pork, most vegetables. [place]: Use with beef, pork, most vegetables. [place]: Use with beef, pork, green beans, cauliflower, cabbage, beets, asparagus, and in dips and marinades. Cardamom: Use with fruit and in baked goods. Rouse: Use with beef, chicken, pork, fish, green beans, carrots and in marinades. Dill: Use with beef, chicken, green beans, cabbage, carrots, peas and in dips. Bisi: Use with beef, chicken, pork, green beans, cauliflower and eggplant. Marjoram: Use with beef, chicken, pork, green beans, cauliflower and eggplant. Teresa: Use with chicken, pork, cauliflower, peas and in marinades. Thyme: Use with beef, chicken, pork, fish, green beans, beets and carrots. Mateo: Use with chicken, pork, eggplant and in dressing. Tarragon: Use with fish, chicken, asparagus, beets, cabbage, cauliflower and in marinades. Tips for cooking with herbs and spices Purchase spices and herbs in small amounts . When they sit on the shelf for years they lose their flavor. Use no more than ?? teaspoon of dried spice (?? of fresh) per pound of meat. Add ground spices to food about 15 minutes before the end of the cooking period. Add whole spices to food at least one hour before the end of the cooking period. Combine herbs with oil or butter, set for 30 minutes to bring out their flavor, then brush on foodswhile they cook, or brush meat with oil and sprinkle herbs one hour before coolcing. Crush dried herbs before adding to foods. Can I use salt substitutes? Caution! If you are told to limit potassium in your diet, be very cautious about using salt substitutes because most of them contain some form of potassium. Check with your doctor or dietitian beforeusing and salt substitute. Lake and create your own seasoning containing those spices that you like. If you would like to become a volunteer and find out more about what's happening where you live, contact your local [facility] Affiliate. No NSAIDS - Do not take non-steroidal anti-inflammatory medications (NSAIDS) such as Ibuprofen (Advil, Motrin, etc), Naproxen (Aleve, etc), Celecoxib (Celebrex) or Ketoprofen. These common arthritis medications can cause permanent kidney damage or worsen your kidney damage. For mild occasional pain, Acetaminophen (Tylenol, etc) is safe for your kidneys. Blood pressure monitoring education: Monitor home blood pressure values after sitting for 5 minutes with back and arm support. Keep a log. Bring your log and blood pressure cuff to your next visit. documented in this encounter Progress Notes * Darci Gamble MD - 09/12/2024 9:45 AM EST Images from the original note were not included. Patient Name: Diane Vides Female Date of : 1985, 38 y.o. Date: 09/13/24 [] New Patient [x] Established Patient [] New Hospital Follow Up [] Established Hospital Follow Up [] Telemed Visit [] H&P Referring MD: Delores Mancia MD PCP: Delores Mancia MD Reason For Visit: IM Cx GN, Proteinuria, HTN, Edema Diane Vides is a 38 y.o. 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 S/P Bariatric Surg 4 wks ago. WT decr 5-8 lbs thus far but now c/o leg swelling. Now incr WT again and she is currently being eval for possible R-Y Bariatric Surgery. Cont on divoan 160 qd. She denies chest pain or shortness of breath. No headaches. No blood in the urine. No problems urinating. She is not using any control but tells me she mejia not want to get pregnanat and plans to use barrier method when she becomes sexual active again. She understands the importance of NOT getting while on DIOVAN. The following portions of the patient's chart were reviewed in this encounter and updated as appropriate: Meds Constitutional: Negative for chills and fever. Respiratory: Negative for cough and shortness of breath. Cardiovascular: Positive for leg swelling. Negative for chest pain and palpitations. Gastrointestinal: Negative for abdominal pain, nausea and vomiting. Genitourinary: Negative for dysuria, frequency, hematuria and urgency. Full 13 point review of systems unremarkable except as noted above. Past Medical History: Diagnosis Date Chronic kidney disease Chronic kidney disease stage 1 08/25/2020 Glomerulonephritis FSGS Nephrotic syndrome 08/25/2020 Pre-eclampsia 09/13/2020 Proteinuria SLE glomerulonephritis syndrome (HCC) 08/25/2020 Past Surgical History: Procedure Laterality Date OTHER SURGICAL HISTORY 3 renal biopsies Social History Tobacco Use Smoking status: Former Smokeless tobacco: Never Substance Use Topics Alcohol use: Yes Comment: Alcoholic Drinks/day: Occasional social drink Family History Problem Relation Age of Onset Diabetes Father Current Outpatient Medications Medication Sig Dispense Refill acetaminophen (TYLENOL) 325 MG tablet TAKE 3 TABLETS EVERY 6 HOURS NEEDED FOR HEADACHE ALPRAZolam (XANAX) 0.5 MG tablet Take 0.5 mg by mouth if needed Calcium Carbonate-Vitamin D 600-200 MG-UNIT capsule Take 1 capsule by mouth 1 (one) time each day escitalopram (LEXAPRO) 10 MG tablet hydroxychloroquine (PLAQUENIL) 200 MG tablet Take 200 mg by mouth 1 (one) time each day Multiple Vitamin (multivitamin) capsule Take 1 capsule by mouth 1 (one) time each day sertraline (ZOLOFT) 25 MG tablet Take 25 mg by mouth 1 (one) time each day valsartan (DIOVAN) 160 MG tablet TAKE 1 TABLET BY MOUTH 1 TIME EACH DAY. 90 tablet 11 chlorthalidone 25 MG tablet Take 0.5 tablets (12.5 mg total) by mouth 1 (one) time each day 45 tablet 0 No current facility-administered medications for this visit. Allergies Allergen Reactions Metformin Other (see comments) Objective: There were no vitals filed for this visit. eGFR Date Value Ref Range Status 08/06/2020 58 (L) >60 ml/min GFR Calculated Date Value Ref Range Status 01/04/2024 44 (L) >60 Final Comment: This eGFR result was calculated using the CKD-EPI 2020 Creatinine Equation Chemistry Lab Units 09/06/24 0847 07/28/24 0849 07/27/24 0644 07/15/24 1138 04/03/24 0950 01/04/24 0905 09/11/23 0000 08/07/23 0000 08/07/23 0000 06/12/23 0000 12/09/22 0816 12/09/22 0816 CREATININE mg/dL 1.05 1.3* 1.51* 1.26* 1.08* 1.53* 1.37* -- 1.26* 1.42* < > 1.28 BUN mg/dL 12 20 23 29* 20 19 16 -- 18 20 -- 16 BUN / CREAT RATIO 11.4 15.4 15.2 23 19 -- -- -- -- -- -- -- EGFRNAFR -- -- -- -- -- 44* -- -- 47 41 -- -- GLUCOSE mg/dL 82 76 92 58* 74 85 94 < > -- -- -- -- POTASSIUM mmol/L 3.8 4.4 4.4 4.1 4.6 4.7 4.4 -- 4.3 4.4 -- 4.4 SODIUM mmol/L 141 141 141 138 141 142 144 -- 141 139 -- 141 CO2 mmol/L 26 21 19* 20* 19* 21 23 -- -- -- -- 22 CHLORIDE mmol/L 110 112* 115* 111* 111* 115* 115.0* -- 112.0* 114.0* -- 113* ALBUMIN g/dL 2.8* -- -- -- 3.7* 3.2 3.3* -- -- -- -- 3.6 HEMOGLOBIN A1C % 4.9 -- -- -- 4.6* -- -- -- -- -- -- -- BILIRUBIN TOTAL mg/dL 0.4 -- -- -- -- -- 0.3 -- -- -- -- 0.3 AST unit/L 14 -- -- -- -- -- 16 -- -- -- -- 17 ALT U/L -- -- -- -- -- -- 24 -- -- -- -- 16 < > = values in this interval not displayed. Bone Mineral Lab Units 09/06/24 0847 07/28/24 0849 07/27/24 0644 07/15/24 1138 04/03/24 0950 01/04/24 0905 09/11/23 0000 08/07/23 0000 12/09/22 0816 CALCIUM mg/dL 8.8 8.2* 8.6 8.9 8.8 8.9 9.0 < > 8.9 PHOSPHORUS mg/dL 2.7 2.4* -- -- 2.2* 2.5 -- -- -- ALK PHOS unit/L 95 -- -- -- -- -- 94 -- 114 MAGNESIUM mg/dL -- -- -- -- -- 2.1 -- -- -- PTH pcg/mL 129.2* -- -- -- 50 93* -- -- -- VIT D 25 HYDROXY ng/mL -- -- -- -- 27.1* 35 -- -- -- < > = values in this interval not displayed. CBC Lab Units 09/06/24 0847 04/03/24 0950 01/04/24 0905 06/12/23 0000 WBC AUTO K/mcL 5.3 4.8 5.4 5.3 RBC AUTO M/mcL 3.90 4.60 4.5 -- MCV FL 87.9 93 84.0 79.0* HEMATOCRIT % 34.1* 42.8 37.7 33.2* HEMOGLOBIN g/dL 11.7 13.6 11.9 10.6* PLATELETS AUTO K/mcL 238 196 241 217 Urine Lab Units 09/06/24 0921 01/04/24 0905 12/09/22 0837 PROT/CREAT RATIO UR -- 0.38* -- ALB MG/G CREAT UR mg/g creat 114* 114* 117.1* 296.3 Urine Lab Units 09/06/24 0921 04/03/24 0950 01/04/24 0905 08/07/23 1308 06/12/23 0000 12/09/22 0837 PH U pH 5.5 6.0 5.5 5.5 -- 5.5 COLOR U -- Yellow -- Yellow yellow Yellow GLUCOSE UR -- Negative -- -- -- -- GLUCOSE U MG/DL mg/dL Negative -- NEGATIVE Negative -- Negative KETONES U MG/DL mg/dL Negative -- NEGATIVE -- -- -- WBC UR HPF /HPF 40.4* 11-30* 49* -- -- 11-20* RBC UR HPF /HPF 3.4 None seen 2 -- -- 0-2 UROBILINOGEN U MG/DL mg/dL 0.2 -- -- -- -- -- UROBILINOGEN UA mg/dL -- 0.2 0.2 -- -- -- Iron Studies Lab Units 09/06/24 0847 04/03/24 0950 01/04/24 0905 09/11/23 0000 12/09/22 0816 FERRITIN ng/mL 17 80 11 -- -- TIBC mcg/dL 188* 233* 322 -- 287 IRON SATURATION % 24 38 15 -- 7* VITAMIN B 12 pg/mL -- -- -- 343 -- PLAN: Assessment & Plan 38 Y/O F COMPLICATED CKD 3 PROTEINURIC PATIENT H/O NEPHROTIC RANGE PROTEIUNRIA ( 2014) WITH APPARENT IM-CX MEDIATED GLOM INJURY OF UNCLEAR ETIOLOGY MOST C/W SLE AND PATTERN OF MEMBNRANOUS EPISODE S/P BARIATRIC SURGERY 75 LB WT LOSS AND HAD NEAR COMPLET REMISSION BASED ON UAC WHO THEN DEVELOPED HEAVY PROTEINURIA IN HER 3RD TRIMESTER C/W SUPERIMPOSED PRECCLAMPSIA VS FLARE OF HER UNDERLYING IM-CX RENAL DISEASE 1. CKD 3: Scr 1.1-1.4 2. Epsiode of NSyndrome with UPC as high as 9.6 gms prior to delivery over 4 yrs ago---had been well controlled recently < 200 mg/Gm 3. HTN: controlled on DIOVAN 4. Edema: recurrent 5. CVDz w Dx of SLE: cont Tx by rheum Disc: may be a candidate for Benlysta for her SLE but for renal indication would need a repeat kidney Bx but Rheum may decide to implement for SLE itself PLAN: start Chlorthalidone 12.5 qd and repeat reanl func and K level; cont to track UACR; cont diovan 160 and she understands the improtance of not getting on thiis medication; needs cont tracking of urine studies avoid salt; will consider adding farxiga in future Encourage WT loss 1. Chronic kidney disease, stage 2 (mild) 2. Persistent proteinuria Orders Placed This Encounter Renal function panel Uric acid chlorthalidone 25 MG tablet No follow-ups on file. Darci Gamble MD documented in this encounter Plan of Treatment Upcoming Encounters Date Type Department Care Team (Late st Contact Info) Description 09/30/2024 Orders Only [facility] [address] [address] Darci Gamble MD [address] [phone] Chronic kidney disease, stage 2 (mild); Persistent proteinuria 10/07/2024 2:00 PM EDT Office Visit [facility] [address] [place] [facility] [place] [address] Darci Gamble MD [address] [address] Scheduled Orders Name Type Priority Associated Diagnoses Orde r Schedule Renal function panel Lab Routine Chronic kidney disease, stage 2 (mild) Persistent proteinuria Expected: 09/30/2024, Expires: 10/13/2025 Uric acid Lab Routine Chronic kidney disease, stage 2 (mild) Persistent proteinuria Expected: 09/30/2024, Expires: 10/13/2025 documented as of this encounter Visit Diagnoses Diagnosis Chronic kidney disease, stage 2 (mild)- Primary Persistent proteinuria Chronic kidney disease, stage 2 (mild) Persistent proteinuria documented in this encounter Care Teams Corporate Representative Relationship Specialty Start Date End Date Delores Mancia MD [address] [place], [place] PCP - General 07/20/20 documented as of this encounter
--- OUTSIDE RECORDS SUMMARY | 2024-09-17 10:12 | XMS_ITS | Clinical Summary ---
Author Organization [facility] Address [address] [place] [address] Care Team Providers Care Urology Physician Name Role Phone Delores Mancia MD Primary [...] age to complete this topic Care Teams Urology Physician Relationship Specialty Start Date End Date Delores Mancia MD [address] [facility] , [address] [facility] Physician Associ D/B/A: [facility] [place] [address] PCP - General Internal Medicine 12/13/23
== END 2024-09-17 09:59 | disposition home or self-care (01) ==
LOC: HO.RHES 09:08
PROVIDERS: PCP Internal Medicine; Visit Provider Internal Medicine Rheumatology
DX: M32.9 Systemic lupus erythematosus, unspecified (principal); S76.311A Strain of muscle, fascia and tendon of the posterior muscle group at thigh level, right thigh, initial encounter; M17.11 Unilateral primary osteoarthritis, right knee; M79.7 Fibromyalgia; R80.9 Proteinuria, unspecified
CPT/HCPCS: 99214

== ENCOUNTER 2024-09-17 09:07 | Outpatient (REF) | payer OTHER, SELFPAY ==
--- OUTSIDE RECORDS SUMMARY | 2024-09-17 11:51 | XMS_ITS | Encounter Summary ---
Author Organization [facility] Address [address] [place] [address] Care Team Providers Care Mortgage Clerk Name Role Phone Delores Silva MD Primary Care Provider [phone] Encounter Details Date Type Department Care Team [...] AM EDT Office Visit Bariatric Surgery - [place] [address] [place] [phone] Ana Lilia Bruce PA [address] [place] [address] 09/30/2024 1:30 PM EDT Appointment [facility] [address] [place] [phone] documented as of this encounter Visit Diagnoses Not on filedocumented in this encounter Care Teams Mortgage Clerk Relationship Specialty Start Date End Date Delores Silva MD [address] [facility] , [address] [facility] Physician Associ D/B/A: [facility] [place] PCP - General Internal Medicine 02/09/22 documented as of this encounter
--- OUTSIDE RECORDS SUMMARY | 2024-09-17 11:51 | XMS_ITS | Encounter Summary ---
Author Organization [facility] Address [address] [address] Phone Care Team Providers Care Frozen Foods Manager Name Role Phone Delores Mancia MD Primary Care Provider [phone] Encounter Details Date Type Department Care Team (Late st Contact Info) Description 07/11/2024 Office Communication [facility] [address] [phone] Zoey Cuevas [address] [phone] Social History Tobacco Use Types [...] Orders Only [facility] [address] [phone] Darci Gamble MD [address] [phone] Chronic kidney disease, stage 2 (mild); Persistent proteinuria 10/07/2024 2:00 PM EDT Office Visit [facility] [address] [place] [phone] Darci Gamble MD [address] [facility] [address] [place] [address] documented as of this encounter Visit Diagnoses Not on filedocumented in this encounter Care Teams Frozen Foods Manager Relationship Specialty Start Date End Date Delores Mancia MD [address] [place] PCP - General 07/20/20 documented as of this encounter
--- OUTSIDE RECORDS SUMMARY | 2024-09-17 11:51 | XMS_ITS | Clinical Summary ---
Author Organization [employer] Address [address] [facility] 7[address] [place] [address] Care Team Providers Care Title I Coordinator Name Role Phone Unavailable Primary Care Provider Unavailabl e Encounters Date Type Department Care Team Description 06/21/2024 9:00 AM EST Office Visit [facility] [address] [place] [address] Martell, Lamar, OD Myopia of both eyes [...] topic Meningococcal Vaccine Aged Out No lisset alciia eligible based on patient's age to complete [...] patient's age to complete this topic Insurance [facility]
--- OUTSIDE RECORDS SUMMARY | 2024-09-17 11:52 | XMS_ITS | Clinical Summary ---
Author Organization [facility] Address [address] [place] [address] Care Team Providers Care Biodiesel Division Manager Name Role Phone Delores Mancia MD [...] age to complete this topic Care Teams Biodiesel Division Manager Relationship Specialty Start Date End Date Delores Mancia MD [address] [facility] , [address] [facility] Physician Associ D/B/A: [facility] [place] [address] PCP - General Internal Medicine 12/13/23
--- OUTSIDE RECORDS SUMMARY | 2024-09-17 11:52 | XMS_ITS | Encounter Summary ---
Author Organization [facility] Address [address] [place] [address] Care Team Providers Care Valet Attendant Name Role Phone Delores Silva MD Primary Care Provider [phone] Reason for Referral * Imaging (Emergency) - Closed Specialty Diagnoses / Procedures Referred By Alphonso cooper Referred To Contact Diagnoses Bilateral edema of lower extremity Procedures Vascular US duplex lower extremity venous bilateral Ana Lilia Bruce PA [address] [address] Phone: tel: fax: [facility] Referral ID Status Reason Start Date Expiration Date Visits Re quested Visits Authorized [id number] Closed 09/05/2024 09/05/2025 1 1 Reason for Visit * Reason Comments Follow-up 2nd Post Op Sleeve t o Bypass 07/26 Encounter Details Date Type Department Care Team (Late st Contact Info) Description 09/05/2024 11:15 AM EST Office Visit Bariatric Surgery - [place] [address] [address] Ana Lilia Bruce PA [address] [address] Class 3 severe obesity due to excess [...] to gastric bypass with Dr. Ontiveros at [facility] on 07/26/2024. Last appt on [...] (BMI) of 40.0 to 44.9 in adult ([facility]) Morbid (severe) obesity due to excess calories ([facility]) HTN (hypertension) Chronic renal insufficiency Bariatric surgery [...] AM EDT Office Visit Bariatric Surgery - [place] [address] [place] [phone] Ana Lilia Bruce PA [address] [place] [address] 09/30/2024 1:30 PM EDT Appointment [facility] Infusion Center [address] 2nd [place] [phone] documented as of this encounter Results * Vitamin B1 (09/06/2024 8:47 AM EST) [facility] Vitamin B1 Whole Blood 43 38 - 122 ug/L 09/11/2024 9:51 AM EST [facility] Comment: This test was developed and the performance characteristics determined by [facility]. It has not been cleared or approved by the FDA. The laboratory is regulated under CLIA as qualified to perform high-complexity testing. This test is used for patient testing purposes. It should not be regarded as investigational or for research. Test performed at [facility], [address] , [place], [place] ??[address] ? [phone] Ann-Marie Kerr MD, PhD - [employer]ire Fabric [employer] Blood Venous blood specimen / Unknown Venipuncture / Unknown 09/06/2024 8:47 AM EST 09/06/2024 9:08 AM EST Ana Lilia [facility] BLOOD ORDERABLES Final R esult Performing Organization Address [facility]/ZIP Co de Phone Number [facility] [address] [place] [address] * (ABNORMAL) Vitamin B6 (09/06/2024 8:47 AM EST) Vitamin B6 (Pyridoxine) Level 2(L) 5 - 50 ug/L 09/10/2024 11:37 AM EST [facility] Comment: This test was developed and the performance characteristics determined by [facility]. It has not been cleared or approved by the FDA. The laboratory is regulated under CLIA as qualified to perform high-complexity testing. This test is used for patient testing purposes. It should not be regarded as investigational or for research. Test performed at [facility], [address] [place], [place] ??[address] ? [phone] Ann-Marie Kerr MD, PhD - [employer] Inspector Blood Venous blood specimen / Unknown Venipuncture / Unknown 09/06/2024 8:47 AM EST 09/06/2024 9:16 AM EST Ana Lilia [facility] BLOOD ORDERABLES Final R esult Performing Organization Address [facility] Co de Phone Number [facility] [address] [place] [address] * Vitamin D 25 hydroxy (09/06/2024 8:47 AM EST) Pathologist [facility] Vit D, 25-Hydroxy 36.4 30.0 - 80.0 ng/mL LAB CHEMISTRY METHOD 09/06/2024 12:07 PM EST [facility] Blood Venous blood specimen / Unknown Venipuncture / Unknown 09/06/2024 8:47 AM EST 09/06/2024 9:07 AM EST Ana Lilia [facility] BLOOD ORDERABLES Final R esult Performing Organization Address City/[facility]/ZIP Co de Phone Number [facility] ([facility]) [facility] [address] [place] [address], * Zinc (09/06/2024 8:47 AM EST) Zinc 68 60 - 130 ug/dL 09/09/2024 2:57 PM EST [facility] Comment: Elevated results may be due to sample collected in a non-certified trace element-free tube. This test was developed and the performance characteristics determined by [facility]. It has not been cleared or approved by the FDA. The laboratory is regulated under CLIA as qualified to perform high-complexity testing. This test is used for patient testing purposes. It should not be regarded as investigational or for research. Test performed at [facility], [address] , [place], [place] ??[address] ? [phone] Ann-Marie Kerr MD, PhD - [employer] Inspector Blood Venous blood specimen / Unknown Venipuncture / Unknown 09/06/2024 8:47 AM EST 09/06/2024 9:08 AM EST Ana Lilia [facility] BLOOD ORDERABLES Final R esult Performing Organization Address [facility] Co de Phone Number [facility] [address] [place] [address] * Selenium serum (09/06/2024 8:47 AM EST) Selenium 109 63 - 160 mcg/L 09/11/2024 7:46 PM EST [facility] Comment: This test was developed and its analytical performance characteristics have been determined by [employer] [place] [place]. It has not been cleared or approved by the U.S. Food and Drug Administration. This assay has been validated pursuant to the CLIA regulations and is used for clinical purposes. Test Performed by [facility], [facility], [address] [place] [address] Edgard Dejesus M.D., Ph.D., Director of Laboratories , CLIA [id number] Blood Venous blood specimen / Unknown Venipuncture / Unknown 09/06/2024 8:47 AM EST 09/06/2024 9:08 AM EST Ana Lilia [facility] BLOOD ORDERABLES Final R esult [facility] [address] [place] [address] * Folate (09/06/2024 8:47 AM EST) Pathologist [facility] Folate 5.4 2.8 - 17.0 ng/ml LAB CHEMISTRY METHOD 09/06/2024 11:20 AM EST [facility] Blood Venous blood specimen / Unknown Venipuncture / Unknown 09/06/2024 8:47 AM EST 09/06/2024 9:07 AM EST Ana Lilia [facility] BLOOD ORDERABLES Final R esult [facility] [address] [place] [address], * (ABNORMAL) Comprehensive metabolic panel (09/06/2024 8:47 AM EST) [facility] Sodium 141 133 - 145 mmol/L LAB CHEMISTRY METHOD 09/06/2024 11:20 AM EST [facility] Potassium 3.8 3.5 - [...] [facility] BLOOD ORDERABLES Final R esult [facility] [address] [place] [address], [place] [phone] * Prealbumin (09/06/2024 8:47 AM EST) Prealbumin 22 18 - 45 mg/dL LAB CHEMISTRY METHOD 09/06/2024 11:20 AM EST [facility] Blood Venous blood specimen / Unknown Venipuncture / Unknown 09/06/2024 8:47 AM EST 09/06/2024 9:07 AM EST Ana Lilia [facility] BLOOD ORDERABLES Final R [facility] Performing Organization Address City/[facility]/ZIP Co de Phone Number [facility] [address] [place] [address], [place] [phone] * Vascular US duplex lower extremity venous [...] Signed Date: 09/06/2024 09:02 ET Workstation ID: [id number] Transcribed By: Self Edit Transcribed Date: 09/06/2024 [...] Signed Date: 09/06/2024 09:02 ET Workstation ID: [id number] Transcribed By: Self Edit Transcribed Date: 09/06/2024 09:01 ET us Ana Lilia [facility] CV VASCULAR PROCEDURES Final Result documented in this encounter Visit Diagnoses Diagnosis Class 3 severe obesity due to excess calories with serious comorbidity and body mass index (BMI) of 40.0 to 44.9 in adult ([facility])- Primary Bilateral edema of lower extremity Bariatric surgery status Bilateral edema of lower extremity documented in this encounter Care Teams Valet Attendant Relationship Specialty Start Date End Date Delores Silva MD [address] [facility] , [address] [facility] D/B/A: Alejandra Samuel In Internal Medicine DIOR Roberts PCP - General Internal Medicine 02/09/22 documented as of this encounter
--- OUTSIDE RECORDS SUMMARY | 2024-09-17 11:52 | XMS_ITS | Encounter Summary ---
Author Organization [facility] Address [address] [place] [address] Care Team Providers Care Coil Assembler Name Role Phone Delores Silva MD Primary Care Provider [phone] Reason for Visit * Reason Comments Follow-up Encounter Details Date Type Department Care Team (Late st Contact Info) Description 09/09/2024 10:00 AM EST Office Visit [facility] Hematology Oncology [address] [place] [phone] Reji Hernandez MD [address] [place] [address] Anemia, unspecified type (Primary Dx); Bariatric surgery [...] (BMI) of 40.0 to 44.9 in adult ([facility]) Morbid (severe) obesity due to excess calories ([facility]) HTN (hypertension) Chronic renal insufficiency Bariatric surgery status Past Medical History: Diagnosis Date Anemia DX:Anemia Anxiety Arthritis Depression DX:Depression Hypertension DX:Hypertension Hypothyroidism not taking meds Joint pain Lupus (systemic lupus erythematosus) ([facility]) SOCIAL HISTORY: Social History Tobacco Use Smoking [...] AM EDT Office Visit Bariatric Surgery - [place] [address] [address] Ana Lilia Bruce PA 271 [facility] 120 [place] [address] 09/30/2024 1:30 PM EDT Appointment [facility] Infusion Center 271 [facility] 2nd [place] [phone] documented as of this encounter Visit Diagnoses Diagnosis Anemia, unspecified type- Primary Bariatric surgery status documented in this encounter Discontinued Medications Medication Sig Discontinue Reason Start Date End Da te calcium carb/vit D3/minerals (CALCIUM CARBONATE-VIT D3-MIN ORAL) Take by mouth. CALCIUM CARBONATE-VIT D-MIN PO Take by mouth. - Oral 09/09/2024 documented as of this encounter Care Teams Coil Assembler Relationship Specialty Start Date End Date Delores Silva MD [address] [place] [address] , [address] [facility]ician Associ D/B/A: Alejandra Samuel In Internal Medicine DIOR Roberts PCP - General Internal Medicine 02/09/22 documented as of this encounter
--- OUTSIDE RECORDS SUMMARY | 2024-09-17 11:52 | XMS_ITS | Encounter Summary ---
Author Organization [facility] Address [address] [place] [address] Care Team Providers Care Global Position System Technician Name Role Phone Delores Silva MD Primary Care Provider [phone] Reason for Visit * Episode Based Medications (Routine) - Authorized Specialty Diagnoses / Procedures Referred By Contac t Referred To Contact Diagnoses Anemia due to vitamin B12 deficiency, unspecified B12 deficiency type Reji Hernandez MD [address] [place] [address] Phone: tel: fax: [address] [address] Phone: tel: fax: Referral ID Status Reason Start Date Expiration Date V isits Requested Visits Authorized [id number] Authorized 05/07/2024 05/07/2025 1 12 Encounter Details Date Type Department Care Team (Latest Contact Info) Description 09/02/2024 1:28 PM EST - 09/02/2024 11:59 PM EST Hospital Encounter [address] [phone] Reji Hernandez MD [address] [place] [address] Anemia due to vitamin B12 deficiency, unspecified [...] AM EDT Office Visit Bariatric Surgery - [place] [address] [phone] Ana Lilia Bruce PA [address] [address] 09/30/2024 1:30 PM EDT Appointment [facility] Infusion Center [address] [facility] 2nd [place] [phone] documented as of this encounter Visit Diagnoses [...] 1 documented in this encounter Care Teams Global Position System Technician Relationship Specialty Start Date End Date Delores Silva MD 2 [facility] , [address] [facility] Associ D/B/A: Alejandra Mcmullenaties In Internal Medicine DIOR Roberts PCP - General Internal Medicine 02/09/22 documented as of this encounter
--- OUTSIDE RECORDS SUMMARY | 2024-09-17 11:52 | XMS_ITS | Encounter Summary ---
Author Organization [facility] Address [address] [place] [address] Care Team Providers Care Cashier Greeter Name Role Phone Delores Silva MD Primary Care Provider [phone] Encounter Details Date Type Department Care Team ([facility] Contact Info) Description 09/05/2024 Telephone Bariatric Surgery - [place] 175 [facility] 120 [place] [address] Ana Lilia Bruce PA 271 [facility] 120 [place] [address] Social History Tobacco Use Types Packs/Day Years [...] AM EDT Office Visit Bariatric Surgery - [place] [address] [facility] [address] [place] [phone] Ana Lilia Bruce PA [address] [facility] [address] [place] [address] 09/30/2024 1:30 PM EDT Appointment [facility] Infusion Center [address] [facility] [address] 2nd [place] [phone] documented as of this encounter Visit Diagnoses Not on filedocumented in this encounter Care Teams Cashier Greeter Relationship Specialty Start Date End Date Delores Silva MD 2 [facility] 101 [facility] Physician Associ D/B/A: Alejandra Associaties In Internal Medicine DIOR Roberts PCP - General Internal Medicine 02/09/22 documented as of this encounter
--- OUTSIDE RECORDS SUMMARY | 2024-09-17 11:52 | XMS_ITS | Encounter Summary ---
Author Organization [facility] Address [address] [facility] 200 [place] [address] Phone Care Team Providers Care Glass Sander Name Role Phone Delores Mancia MD Primary Care Provider [phone] Reason for Visit * Reason Comments Med Refill Encounter Details Date Type Department Care Team (Late Contact Info) Description 09/16/2024 Refill [facility] [address] [place] [address] Darci Gamble MD [address] [facility] 204 [place] [address] Persistent proteinuria; Chronic kidney disease [...] Orders Only [facility] [address] [facility] 204 [place] [address] Darci Gamble MD [address] [facility] 204 [place] [address] Chronic kidney disease, stage 2 (mild); Persistent proteinuria 10/07/2024 2:00 PM EDT Office Visit [facility] [address] [place] [address] Darci Gamble MD [address] [facility] 204 [place] [address] documented as of this encounter Visit Diagnoses Diagnosis Persistent proteinuria Chronic kidney disease stage 1 Chronic kidney disease, stage 2 (mild) Persistent proteinuria documented in this encounter Care Teams Glass Sander Relationship Specialty Start Date End Date Delores Mancia MD [address] [place], [place] PCP - General 07/20/20 documented as of this encounter
--- OUTSIDE RECORDS SUMMARY | 2024-09-17 11:52 | XMS_ITS | Clinical Summary ---
Author Organization [facility] Address [address] [place] [address] Care Team Providers Care Implementation Lead Name Role Phone Delores Mancia MD Primary Care Provider [phone] Allergies Active Allergy Reactions Criticality Noted Date [...] 09/16/2024 Refill [facility] [address] [place] [address] Darci Gamble MD Persistent proteinuria; Chronic kidney disease stage 1 09/12/2024 9:45 AM EST Telemedicine [facility] [address] [phone] Darci Gamble MD Chronic kidney disease, stage 2 (mild) (Primary Dx); Persistent proteinuria 09/06/2024 Orders Only [facility] [address] [address] Darci Gamble MD 07/11/2024 Office Communication [facility] [address] [phone] Zoey Cuevas from Last 3 Months Immunizations [...] Orders Only [facility] [address] [address] Darci Gamble MD [address] [address] Chronic kidney disease, stage 2 (mild); Persistent proteinuria 10/07/2024 2:00 PM EDT Office Visit [facility] [address] [place] [address] Darci Gamble MD [address] [address] Health Maintenance Due Date Last [...] 9:21 AM EST) Creatinine, Urine 129.0 mg/dL [facility] Microalbumin Urine Random 147.0(H) 0.0 - 29.0 mg/L [facility] Microalbumin/Cre atinine Ratio 114(H) <30 mg/g creat [facility] 09/06/2024 9:21 AM EST 09/06/2024 10:22 AM EST us Darci Gamble MD LAB URINE ORDERABLES Final Re sult Performing Organization Address City/State/[facility] Co de Phone Number [facility] [address] [place] [address] * (ABNORMAL) Urinalysis Reflex Microscopic (09/06/2024 9:21 AM EST) Pathologist [facility] Specific Jerome 1.015 1.003 - 1.030 [facility] pH Urine 5.5 5.0 - 8.0 pH [facility] LEUKOCYTES, URINE Small(A) Negative [facility] Nitrite, Urine Negative Negative [facility] Protein, Urine 30(A) <=Trace mg/dL [facility] Glucose Urine Negative Negative mg/dL [facility] Ketones, Urine Negative Negative mg/dL [facility] Urobilinogen Urine 0.2 0.2 - 1.0 mg/dL [facility] Bilirubin Urine Negative Negative [facility] Blood Urine Negative Negative [facility] RBC, Urine 3.4 0 - 4 /HPF [facility] WBC, Urine 40.4(H) 0 - 4 /HPF [facility] Squamous Epithelial, Urine >100(H) 0 - 60 /LPF [facility] Bacteria, Urine Negative Negative /HPF [facility] Hyaline Casts, UA 1.6 0 - 3 /LPF [facility] 09/06/2024 9:21 AM EST 09/06/2024 10:22 AM EST Darci Gamble MD LAB URINE ORDERABLES Final Re sult Performing Organization Address [facility] Co de Phone Number [facility] [address] [place] [address] * Urine Culture (09/06/2024 9:21 AM EST) Culture Result, Urine 50,000-99,000 CFU/mL Mixed urogenital bela, no uropathogens present. Suggest repeat specimen if clinically indicated. [facility] 09/06/2024 9:21 AM EST 09/06/2024 10:21 AM EST Darci Gamble MD LAB URINE ORDERABLES Final Re sult Performing Organization Address [facility] Co de Phone Number [facility] [address] [place] [address] * (ABNORMAL) Iron Panel (09/06/2024 8:47 AM EST) Iron 46 40 - 150 mcg/dL [facility] TIBC 188(L) 250 - 450 mcg/dL [facility] Iron Saturation (TSat) 24 15 - 50 % [facility] 09/06/2024 8:47 AM EST 09/06/2024 9:07 AM EST us Darci Gamble MD LAB [id number] SOLICITED RESULTS Final Result MONICA [facility] [address] [place] [address] * (ABNORMAL) CBC auto differential (09/06/2024 8:47 AM EST) WBC 5.3 4.8 - 10.8 K/[facility] RBC 3.90 3.80 - 4.80 M/[facility] Hgb 11.7 11.5 - 16.0 g/dL [facility] Hematocrit 34.1(L) 35.0 - 47.0 % [facility] MCV 87.9 79.0 - 98.0 FL [facility] MCH 30.2 27.0 - 32.0 pcg [facility] MCHC 34.3 32.0 - 37.0 g/dL [facility] RDW 16.0(H) 11.0 - 15.0 % [facility] Platelets 238 130 - 400 K/[facility] MPV 11.7(H) 7.0 - 11.0 FL [facility] nRBC Count 0.0 <1.0 % [facility] NRBC Absolute 0.00 <0.10 K/[facility] Bands Relative 70.9 % [facility] Lymphocyte Realative Percent 18.7 % [facility] Monocyte Relative Percent 6.9 % [facility] Eosinophil Relative Percent 2.2 % [facility] Basophils Relative Diff 0.7 % [facility] Immature Granulocytes 0.6 % [facility] Neutrophils Absolute 3.78 1.50 - 7.00 K/[facility] Lymphocytes Absolute 1.00 1.00 - 5.00 K/[facility] Monocytes Absolute 0.37 0.20 - 1.00 [facility] Eosinophil Absolute 0.12 0.00 - 0.50 K/[facility] Basophil ABS 0.04 0.00 - 0.20 K/[facility] Immature Grans (Absolute) 0.03 0.00 - 0.03 K/[facility] 09/06/2024 8:47 AM EST 09/06/2024 9:08 AM EST Darci Gamble MD LAB BLOOD ORDERABLES Final Re sult Performing Organization Address [facility]/ZIP Co de Phone Number [facility] [address] [place] [address] * Phosphorus (09/06/2024 8:47 AM EST) Phosphorus 2.7 2.5 - 4.5 mg/dL [facility] 09/06/2024 8:47 AM EST 09/06/2024 9:07 AM EST Darci Gamble MD LAB BLOOD ORDERABLES Final Re sult Performing Organization Address [facility] Co de Phone Number [facility] [address] [place] [address] * (ABNORMAL) PTH, Intact (09/06/2024 8:47 AM EST) PTH 129.2(H) 18.5 - 88.0 pcg/mL [facility] 09/06/2024 8:47 AM EST 09/06/2024 9:07 AM EST Darci Gamble MD LAB BLOOD ORDERABLES Final Re sult Performing Organization Address City/[facility]/ZIP Co de Phone Number [facility] [address] [place] [address] * Hemoglobin A1c (09/06/2024 8:47 AM EST) Hemoglobin A1C 4.9 <6.5 % [facility] Estimated Average Glucose 94 mg/dL [facility] 09/06/2024 8:47 AM EST 09/06/2024 9:08 AM EST Darci Gamble MD LAB BLOOD ORDERABLES Final Re sult Performing Organization Address [facility] Co de Phone Number [facility] [address] [place] [address] * Ferritin (09/06/2024 8:47 AM EST) Ferritin 17 8 - 252 ng/mL [facility] 09/06/2024 8:47 AM EST 09/06/2024 9:07 AM EST Darci Gamble MD LAB BLOOD ORDERABLES Final Re sult Performing Organization Address [facility] Co de Phone Number [facility] [address] [place] [address] from Last 3 Months Insurance [facility] MED[facility] Care Teams Implementation Lead Relationship Specialty Start Date End Date Delores Mancia MD [address] [place], [place] PCP - General 07/20/20
--- OUTSIDE RECORDS SUMMARY | 2024-09-17 11:52 | XMS_ITS | Encounter Summary ---
Author Organization [facility] Address [address] [address] Phone Care Team Providers Care District Adviser Name Role Phone Delores Mancia MD Primary Care Provider [phone] Encounter Details Date Type Department Care Team (Late st Contact Info) Description 09/12/2024 9:45 AM EST Telemedicine [facility]. [address] [address] Darci Gamble MD [address] [address] Chronic kidney disease, stage 2 [...] Salted Snacks such as Crackers Potato chips [place] chips Pretzels Tortilla chips Nuts Popcorn [place] seeds Homemade or low- sodium sauces and [...] Foods such as: TV Dinners Canned raviolis [place] Macaroni & Cheese Spaghetti Frozen prepared foods [...] are 1000 milligrams (mg) in 1gram. For [id number], if your diet prescription is 2 grams [...] Basil: Use with beef, pork, most vegetables. [place]: Use with beef, pork, most vegetables. [place]: Use with beef, pork, green beans, cauliflower, [...] doctor or dietitian beforeusing and salt substitute. [place] and create your own seasoning containing those spices that you like. If you would like to become a volunteer and find out more about what's happening where you live, contact your local [facility]. No NSAIDS - Do not take [...] [facility] 3 CKD ( [...] Only [facility] [address] [address] Darci Gamble MD [address] [phone] Chronic kidney disease, stage 2 (mild); Persistent proteinuria 10/07/2024 2:00 PM EDT Office Visit [facility] [address] [place] [facility] [place] [address] Darci Gamble MD [address] [address] Scheduled Orders Name Type Priority Associated Diagnoses [...] proteinuria documented in this encounter Care Teams District Adviser Relationship Specialty Start Date End Date Delores Mancia MD [address] [place], [place] PCP - General 07/20/20 documented as of this encounter
--- OUTSIDE RECORDS SUMMARY | 2024-09-17 11:52 | XMS_ITS | Encounter Summary ---
Author Organization [facility] Address [address] [address] Phone Care Team Providers Care Diesel Mechanic Helper Name Role Phone Delores Mancia MD Primary Care Provider [phone] Encounter Details Date Type Department Care Team (Late Contact Info) Description 09/06/2024 Orders Only [facility] [address] [place] [phone] Darci Gamble MD [address] [phone] Social History Tobacco Use Types [...] Orders Only [facility] [address] [place] [phone] Darci Gamble MD [address] [phone] Chronic kidney disease, stage 2 (mild); Persistent proteinuria 10/07/2024 2:00 PM EDT Office Visit [facility] [address] [place] [address] Darci Gamble MD [address] [facility] [address] [place] [phone] documented as of this encounter Procedures Procedure [...] present. Suggest repeat specimen if clinically indicated. [facility] 09/06/2024 9:21 AM EST 09/06/2024 10:21 AM EST us Darci Gamble MD LAB URINE ORDERABLES Final Re sult [id number] [address] [place] [address] * (ABNORMAL) Urine Albumin / Creatinine Ratio (09/06/2024 9:21 AM EST) Creatinine, Urine 129.0 mg/dL [facility] Microalbumin Urine Random 147.0(H) 0.0 - 29.0 mg/L [facility] Microalbumin/Cre atinine Ratio 114(H) <30 mg/g creat [facility] 09/06/2024 9:21 AM EST 09/06/2024 10:22 AM EST us Darci Gamble MD LAB URINE ORDERABLES Final Re sult [facility] [address] [place] [address] * (ABNORMAL) Urinalysis Reflex Microscopic (09/06/2024 9:21 AM EST) Specific [place] 1.015 1.003 - 1.030 [facility] pH Urine 5.5 5.0 - 8.[address] [facility] LEUKOCYTES, URINE Small(A) Negative [facility] Nitrite, Urine Negative Negative [facility] Protein, Urine 30(A) <=Trace mg/dL [facility] Glucose Urine Negative Negative mg/dL [facility] Ketones, Urine Negative Negative mg/dL [facility] Urobilinogen Urine 0.2 0.2 - 1.0 mg/dL [facility] Bilirubin Urine Negative Negative [facility] Blood Urine Negative Negative [facility] RBC, Urine 3.4 0 - 4 /HPF [facility] WBC, Urine 40.4(H) 0 - 4 /HPF [facility] Squamous Epithelial, Urine >100(H) 0 - 60 /LPF [facility] Bacteria, Urine Negative Negative /HPF [facility] Hyaline Casts, UA 1.6 0 - 3 /LPF [facility] 09/06/2024 9:21 AM EST 09/06/2024 10:22 AM EST Darci Gamble MD LAB URINE ORDERABLES Final Re sult Performing Organization Address City/[facility]/ZIP Co de Phone Number [facility] [address] [place] [address] * Hemoglobin A1c (09/06/2024 8:47 AM EST) Hemoglobin A1C 4.9 <6.5 % [facility] Estimated Average Glucose 94 mg/dL [facility] 09/06/2024 8:47 AM EST 09/06/2024 9:08 AM EST Darci Gamble MD LAB BLOOD ORDERABLES Final Re sult Performing Organization Address [facility] Co de Phone Number [facility] [address] [place] [address] * (ABNORMAL) PTH, Intact (09/06/2024 8:47 AM EST) PTH 129.2(H) 18.5 - 88.0 pcg/mL [facility] 09/06/2024 8:47 AM EST 09/06/2024 9:07 AM EST Darci Gamble MD LAB BLOOD ORDERABLES Final Re sult Performing Organization Address [facility] Co de Phone Number [facility] [address] [place] [address] * Ferritin (09/06/2024 8:47 AM EST) Ferritin 17 8 - 252 ng/mL [facility] 09/06/2024 8:47 AM EST 09/06/2024 9:07 AM EST Darci Gamble MD LAB BLOOD ORDERABLES Final Re sult Performing Organization Address [facility]/ZIP Co de Phone Number [facility] [address] [place] [address] * Phosphorus (09/06/2024 8:47 AM EST) Phosphorus 2.7 2.5 - 4.5 mg/dL [facility] 09/06/2024 8:47 AM EST 09/06/2024 9:07 AM EST us Darci Gamble MD LAB BLOOD ORDERABLES Final Re sult Performing Organization Address [facility] de Phone Number [facility] [address] [place] [address] * (ABNORMAL) Iron Panel (09/06/2024 8:47 AM EST) Pathologist [facility] Iron 46 40 - 150 mcg/dL [facility] TIBC 188(L) 250 - 450 mcg/dL [facility] Iron Saturation (TSat) 24 15 - 50 % [facility] 09/06/2024 8:47 AM EST 09/06/2024 9:07 AM EST Darci Gamble MD LAB [id number] SOLICITED RESULTS Final Result Performing Organization Address [facility] Co de Phone Number [facility] [address] [place] [address] * (ABNORMAL) CBC auto differential (09/06/2024 8:47 AM EST) WBC 5.3 4.8 - 10.8 K/[facility] RBC 3.90 3.80 - 4.80 M/[facility] Hgb 11.7 11.5 - 16.0 g/dL [facility] Hematocrit 34.1(L) 35.0 - 47.0 % [facility] MCV 87.9 79.0 - 98.[address] [facility] MCH 30.2 27.0 - 32.[address] [facility] MCHC 34.3 32.0 - 37.0 g/dL [facility] RDW 16.0(H) 11.0 - 15.0 % [facility] Platelets 238 130 - 400 K/[facility] MPV 11.7(H) 7.0 - 11.0 [facility] nRBC Count 0.0 <1.0 % [facility] NRBC Absolute 0.00 <0.10 K/[facility] Bands Relative 70.9 % [facility] Lymphocyte Realative Percent 18.7 % [facility] Monocyte Relative Percent 6.9 % [facility] Eosinophil Relative Percent 2.2 % [facility] Basophils Relative Diff 0.7 % [facility] Immature Granulocytes 0.6 % [facility] Neutrophils Absolute 3.78 1.50 - 7.00 K/[facility] Lymphocytes Absolute 1.00 1.00 - 5.00 K/[facility] Monocytes Absolute 0.37 0.20 - 1.00 K/[facility] Eosinophil Absolute 0.12 0.00 - 0.50 K/[facility] Basophil ABS 0.04 0.00 - 0.20 K/[facility] ([facility] Immature Grans (Absolute) 0.03 0.00 - 0.03 /[facility] 09/06/2024 8:47 AM EST 09/06/2024 9:08 AM EST us Darci Gamble MD LAB BLOOD ORDERABLES Final Re sult [facility] [address] [place] [address] documented in this encounter Visit Diagnoses Not on filedocumented in this encounter Care Teams Diesel Mechanic Helper Relationship Specialty Start Date End Date Delores Mancia MD [address] [place], [place] PCP - General 07/20/20 documented as of this encounter
--- OUTSIDE RECORDS SUMMARY | 2024-09-17 11:52 | XMS_ITS | Encounter Summary ---
Author Organization [facility] Address [address] [place] [address] Care Team Providers Care Industrial Cafeteria Manager Name Role Phone Delores Silva MD Primary Care Provider [phone] Reason for Referral * Imaging (Emergency) - Closed Specialty Diagnoses / Procedures Referred By Alphonso cooper Referred To Contact Diagnoses Bilateral edema of lower extremity Procedures Vascular US duplex lower extremity venous bilateral Ana Lilia Bruce PA [address] [address] Phone: tel: fax: [facility] Referral ID Status Reason Start Date Expiration Date Visits Re quested Visits Authorized [id number] Closed 09/05/2024 09/05/2025 1 1 Reason for Visit * Imaging (Emergency) - Closed Specialty Diagnoses / Procedures Referred By Alphonso cooper Referred To Contact Diagnoses Bilateral edema of lower extremity Procedures Vascular US duplex lower extremity venous bilateral Ana Lilia Bruce PA [address] [address] Phone: tel: fax: [facility] Referral ID Status Reason Start Date Expiration Date Visits Re quested Visits Authorized [id number] Closed 09/05/2024 09/05/2025 1 1 Encounter Details Date Type Department Care Team (Latest Contact Info) Description 09/06/2024 7:50 AM EST - 09/06/2024 11:59 PM EST Hospital Encounter [facility] [address] [place] [address] Bilateral edema of lower extremity [...] AM EDT Office Visit Bariatric Surgery - [place] [address] [facility] [address] [place] [phone] Ana Lilia Bruce PA [address] [facility] [address] [place] [address] 09/30/2024 1:30 PM EDT Appointment [facility] [address] [facility] 2nd [place] [phone] documented as of this encounter Procedures Procedure [...] Signed Date: 09/06/2024 09:02 ET Workstation ID: [id number] Transcribed By: Self Edit Transcribed Date: 09/06/2024 [...] Signed Date: 09/06/2024 09:02 ET Workstation ID: [id number] Transcribed By: Self Edit Transcribed Date: 09/06/2024 09:01 ET us Ana Lilia [facility] CV VASCULAR PROCEDURES Final Result documented in this encounter Visit Diagnoses Diagnosis Bilateral edema of lower extremity documented in this encounter Care Teams Industrial Cafeteria Manager Relationship Specialty Start Date End Date Delores Silva MD [address] [place] [address] , [address] [place] [address] Physician Associ D/B/A: [facility] [place] PCP - General Internal Medicine 02/09/22 documented as of this encounter
--- OUTSIDE RECORDS SUMMARY | 2024-09-17 11:53 | XMS_ITS | Clinical Summary ---
Author Organization 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 Name Role Phone Delores Silva MD Primary Care Provider [phone] Allergies Active Allergy Reactions Criticality Noted Date [...] Description 09/09/2024 10:00 AM EST Office Visit [facility] Hematology Oncology [address] [place] [phone] Reji Hernandez MD Anemia, unspecified type (Primary Dx); Bariatric surgery status 09/06/2024 7:50 AM EST - 09/06/2024 11:59 PM EST Hospital Encounter [facility] Ultrasound [address] [place] [phone] Bilateral edema of lower extremity Discharge Disposition: Home or Self Care 09/05/2024 11:15 AM EST Office Visit Bariatric Surgery - [address] [phone] Ana Lilia Bruce PA Class 3 severe obesity due to excess calories with serious comorbidity and body mass index (BMI) of 40.0 to 44.9 in adult ([facility]) (Primary Dx); Bilateral edema of lower extremity; Bariatric surgery status 09/05/2024 Telephone Bariatric Surgery - [address] [phone] Ana Lilia Bruce PA 09/02/2024 1:28 PM EST - 09/02/2024 11:59 PM EST Hospital [facility] [address] [facility] 2nd [place] [phone] Reji Hernandez MD Anemia due to vitamin B12 deficiency, unspecified B12 deficiency type (Primary Dx) Discharge Disposition: Home or Self Care 08/26/2024 12:30 PM EST Nutrition Bariatric Surgery - [address] [phone] Ruth Moore [address] Class 3 severe obesity with body mass index (BMI) of 40.0 to 44.9 in adult, unspecified obesity type, unspecified whether serious comorbidity present ([facility]) (Primary Dx) 08/19/2024 3:45 PM EST Office Visit Bariatric Surgery [address] [phone] Ana Lilia Bruce PA Class 3 severe obesity due to excess calories with serious comorbidity and body mass index (BMI) of 40.0 to 44.9 in adult ([facility]) (Primary Dx); Bariatric surgery status 08/08/2024 11:15 AM EST Office Visit Bariatric Surgery [address] [phone] Ana Lilia Bruce PA Class 3 severe obesity due to excess calories with serious comorbidity and body mass index (BMI) of 40.0 to 44.9 in adult ([facility]) (Primary Dx); Bariatric surgery status 08/05/2024 12:44 PM EST - 08/05/2024 11:59 PM EST Hospital Encounter [facility] Infusion Center [address] [phone] Reji Hernandez MD Anemia due to vitamin B12 deficiency, unspecified B12 deficiency type (Primary Dx) Discharge Disposition: Home or Self Care 07/31/2024 Telephone Bariatric Surgery - [address] [phone] Loan Javier, RN 07/30/2024 Telephone Bariatric Surgery - [address] [phone] Loan Javier, ANURADHA 07/26/2024 7:41 AM EST Anesthesia Event [facility] Main OR [address] [place] [phone] Tameka Gibson MD 07/26/2024 7:30 AM EST - 07/26/2024 10:30 AM EST Surgery [facility] Main OR [address] [place] [phone] [facility] [[id number] (CPT??)] 07/26/2024 6:09 AM EST - 07/28/2024 2:38 PM EST Hospital Encounter [facility] Medical Surgical Unit [address] [place] [phone] Anaid Ontiveros MD H/O gastric sleeve (Primary Dx) Discharge Disposition: Home or Self Care 07/24/2024 Telephone Bariatric Surgery - [address] [phone] Loan Javier, RN 07/16/2024 11:45 AM EST Consult Bariatric Surgery - [address] [phone] Ana Lilia Bruce PA Class 3 severe obesity due to excess calories with serious comorbidity and body mass index (BMI) of 45.0 to 49.9 in adult ([facility]) (Primary Dx); Gastroesophageal reflux disease, unspecified whether esophagitis present 07/08/2024 1:17 PM EST - 07/08/2024 11:59 PM EST Hospital Encounter [facility] Infusion Center [address] [facility] [address] [place] [phone] Anemia due to vitamin B12 deficiency, unspecified B12 deficiency type (Primary Dx) Discharge Disposition: Home or Self Care 06/27/2024 1:00 PM EST Telemedicine Bariatric Surgery - [place] [address] [facility] [address] [place] [address] Class 3 severe obesity with body mass index (BMI) of 45.0 to 49.9 in adult, unspecified obesity type, unspecified whether serious comorbidity present (CMS/HCC) (Primary Dx) 06/27/2024 8:35 AM EST - 06/27/2024 11:59 PM EST Hospital Encounter [facility] Xray [address] [place] [address] Morbid (severe) obesity due to excess calories ([facility]) Discharge Disposition: Home or Self Care [...] Arthritis Joint pain Lupus (systemic lupus erythematosus) (CMS/[facility]) Social History Tobacco Use Types Packs/Day [...] AM EDT Office Visit Bariatric Surgery - [place] [address] [facility] [address] [place] [phone] Ana Lilia Bruce PA [address] [facility] [address] [place] [address] 09/30/2024 1:30 PM EDT Appointment [facility] Infusion Center [address] [facility] 2nd [place] [phone] Health Maintenance Due Date Last Done Comments [...] this topic Medical Devices Implanted Type Area Finisher Merchant Products Device Identifier Shelf Expiration Date Model / [...] ENDOTRACHEAL(NO CHARGE) Routine 07/26/2024 7:54 AM EST DE LAP SURG GASTRIC REST PROC W GSTR [...] reflex microscopic (09/06/2024 9:21 AM EST) Specific [place] Urine 1.015 1.003 - 1.030 LAB URINALYSIS - AUTOMATED METHOD 09/06/2024 10:35 AM [facility] pH, Urine 5.5 5.0 - 8.0 pH LAB URINALYSIS - AUTOMATED METHOD 09/06/2024 10:35 AM [facility] Leukocytes, Urine Small(A) Negative LAB URINALYSIS - AUTOMATED METHOD 09/06/2024 10:35 AM [facility] Nitrite, Urine Negative Negative LAB URINALYSIS - AUTOMATED METHOD 09/06/2024 10:35 AM [facility] Protein, Urine 30(A) <=Trace mg/dL LAB URINALYSIS - AUTOMATED METHOD 09/06/2024 10:35 AM [facility] Glucose, Urine Negative Negative mg/dL LAB URINALYSIS - AUTOMATED METHOD 09/06/2024 10:35 AM [facility] Ketones, Urine Negative Negative mg/dL LAB URINALYSIS - AUTOMATED METHOD 09/06/2024 10:35 AM [facility] Urobilinogen, Urine 0.2 0.2 - 1.0 mg/dL LAB URINALYSIS - AUTOMATED METHOD 09/06/2024 10:35 AM [facility] Bilirubin, Urine Negative Negative LAB URINALYSIS - AUTOMATED METHOD 09/06/2024 10:35 AM [facility] Blood, Urine Negative Negative LAB URINALYSIS - AUTOMATED METHOD 09/06/2024 10:35 AM [facility] RBC, Urine 3.4 0 - 4 /HPF LAB URINALYSIS - AUTOMATED METHOD 09/06/2024 10:35 AM [facility] WBC, Urine 40.4(H) 0 - 4 /HPF LAB URINALYSIS - AUTOMATED METHOD 09/06/2024 10:35 AM [facility] Squamous Epithelial, Urine >100(H) 0 - 60 /LPF LAB URINALYSIS - AUTOMATED METHOD 09/06/2024 10:35 AM [facility] Bacteria, Urine Negative Negative /HPF LAB URINALYSIS - AUTOMATED METHOD 09/06/2024 10:35 AM [facility] Hyaline Casts, Urine 1.6 0 - 3 /LPF LAB URINALYSIS - AUTOMATED METHOD 09/06/2024 10:35 AM [facility] Urine Urine specimen obtained by clean catch procedure / Unknown Non-blood Collection / Unknown 09/06/2024 9:21 AM EST 09/06/2024 10:22 AM EST us Darci Gamble MD LAB URINE ORDERABLES Final Re sult [facility] [address] [place] [address], [place] [phone] * (ABNORMAL) Microalbumin creatinine urine ratio (09/06/2024 9:21 AM EST) Creatinine, Urine 129.0 mg/dL LAB CHEMISTRY METHOD 09/06/2024 12:09 PM [facility] Microalb, Ur 147.0(H) 0.0 - 29.0 mg/L LAB CHEMISTRY METHOD 09/06/2024 12:09 PM [facility] Microalb/Crea t Ratio 114(H) <30 mg/g creat LAB CHEMISTRY METHOD 09/06/2024 12:09 PM [facility] Urine Urine specimen obtained by clean catch procedure / Unknown Non-blood Collection / Unknown 09/06/2024 9:21 AM EST 09/06/2024 10:22 AM EST us Darci Gamble MD LAB URINE ORDERABLES Final Re sult Performing Organization Address [facility]/ZIP Co de Phone Number [facility] [address] [place] [address], * , urine (09/06/2024 9:21 AM EST) Pathologist [facility] Preg Test, Ur Negative Negative 09/06/2024 10:30 AM EST [facility] Urine Urine specimen obtained by clean catch procedure / Unknown Non-blood Collection / Unknown 09/06/2024 9:21 AM EST 09/06/2024 10:22 AM EST Ana Lilia WESTON LAB URINE ORDERABLES Final R esult Performing Organization Address [facility] Co de Phone Number [facility] [address] [place] [address], * Culture urine (09/06/2024 9:21 AM EST) Only the most recent of2 resultswithin the time period is included. [facility] Culture, Urine 50,000-99,000 CFU/mL Mixed urogenital bela, no uropathogens present. Suggest repeat specimen if clinically indicated. 09/08/2024 12:56 PM EST [facility] Urine Urine specimen obtained by clean catch procedure / Unknown Non-blood Collection / Unknown 09/06/2024 9:21 AM EST 09/06/2024 10:21 AM EST Darci Gamble MD LAB MICROBIOLOGY - GENERAL OR DERABLES Final Result Performing Organization Address [facility]/ZIP Co de Phone Number [facility] [address] [place] [address], * (ABNORMAL) CBC auto differential (09/06/2024 8:47 AM EST) Only the most recent of5 resultswithin the time period is included. Pathologist [facility] WBC 5.3 4.8 - 10.8 K/[facility] LAB HEMETOLOGY METHOD 09/06/2024 9:59 AM [facility] RBC 3.90 3.80 - 4.80 M/[facility] LAB HEMETOLOGY METHOD 09/06/2024 9:59 AM [facility] Hemoglobin 11.7 11.5 - 16.0 g/dL LAB HEMETOLOGY METHOD 09/06/2024 9:59 AM [facility] Hematocrit 34.1(L) 35.0 - 47.0 % LAB HEMETOLOGY METHOD 09/06/2024 9:59 AM [facility] MCV 87.9 79.0 - 98.0 FL LAB HEMETOLOGY METHOD 09/06/2024 9:59 AM [facility] MCH 30.2 27.0 - 32.0 pcg LAB HEMETOLOGY METHOD 09/06/2024 9:59 AM [facility] MCHC 34.3 32.0 - 37.0 g/dL LAB HEMETOLOGY METHOD 09/06/2024 9:59 AM [facility] RDW 16.0(H) 11.0 - 15.0 % LAB HEMETOLOGY METHOD 09/06/2024 9:59 AM [facility] Platelets 238 130 - 400 K/[facility] LAB HEMETOLOGY METHOD 09/06/2024 9:59 AM [facility] MPV 11.7(H) 7.0 - 11.0 FL LAB HEMETOLOGY METHOD 09/06/2024 9:59 AM [facility] NRBC 0.0 <1.0 % LAB HEMETOLOGY METHOD 09/06/2024 9:59 AM [facility] NRBC Absolute 0.00 <0.10 K/[facility] LAB HEMETOLOGY METHOD 09/06/2024 9:59 AM [facility] Neutrophils Relative 70.9 % LAB HEMETOLOGY METHOD 09/06/2024 9:59 AM [facility] Lymphocytes Relative 18.7 % LAB HEMETOLOGY METHOD 09/06/2024 9:59 AM [facility] Monocytes Relative 6.9 % LAB HEMETOLOGY METHOD 09/06/2024 9:59 AM [facility] Eosinophils Relative 2.2 % LAB HEMETOLOGY METHOD 09/06/2024 9:59 AM [facility] Basophils Relative 0.7 % LAB HEMETOLOGY METHOD 09/06/2024 9:59 AM [facility] Immature Granulocytes Relative 0.6 % LAB HEMETOLOGY METHOD 09/06/2024 9:59 AM [facility] Neutrophils Absolute 3.78 1.50 - 7.00 K/mcL LAB HEMETOLOGY METHOD 09/06/2024 9:59 AM [facility] Lymphocytes Absolute 1.00 1.00 - 5.00 K/mcL LAB HEMETOLOGY METHOD 09/06/2024 9:59 AM [facility] Monocytes Absolute 0.37 0.20 - 1.00 K/mcL LAB HEMETOLOGY METHOD 09/06/2024 9:59 AM [facility] Eosinophils Absolute 0.12 0.00 - 0.50 K/mcL LAB HEMETOLOGY METHOD 09/06/2024 9:59 AM [facility] Basophils Absolute 0.04 0.00 - 0.20 K/mcL LAB HEMETOLOGY METHOD 09/06/2024 9:59 AM [facility] Immature Granulocytes Absolute 0.03 0.00 - 0.03 K/mcL LAB HEMETOLOGY METHOD 09/06/2024 9:59 AM [facility] Blood Venous blood specimen / Unknown Venipuncture / Unknown 09/06/2024 8:47 AM EST 09/06/2024 9:08 AM EST us Darci Gamble MD LAB BLOOD ORDERABLES Final Re sult Performing Organization Address [facility]/ZIP Co de Phone Number [facility] [address] [place] [address], [place] [phone] * (ABNORMAL) Iron and TIBC (09/06/2024 8:47 AM EST) Only the most recent of2 resultswithin the time period is included. Iron 46 40 - 150 mcg/dL LAB CHEMISTRY METHOD 09/06/2024 10:20 AM EST [facility] TIBC 188(L) 250 - 450 mcg/dL LAB CHEMISTRY METHOD 09/06/2024 10:20 AM EST [facility] Iron Saturation 24 15 - 50 % LAB CHEMISTRY METHOD 09/06/2024 10:20 AM EST [facility] Blood Venous blood specimen / Unknown Venipuncture / Unknown 09/06/2024 8:47 AM EST 09/06/2024 9:07 AM EST us Darci Gamble MD LAB BLOOD ORDERABLES Final Re sult Performing Organization Address [facility] [[email or web address]] de Phone Number [facility] [address] [place] [address], [place] [phone] * Zinc (09/06/2024 8:47 AM EST) Pathologist [facility] Zinc 68 60 - 130 ug/dL 09/09/2024 2:57 PM EST [facility] Comment: Elevated results may be due to sample collected in a non-certified trace element-free tube. This test was developed and the performance characteristics determined by [facility]. It has not been cleared or approved by the FDA. The laboratory is regulated under CLIA as qualified to perform high-complexity testing. This test is used for patient testing purposes. It should not be regarded as investigational or for research. Test performed at [facility], [address] , [place], [place] ??[address] ? [phone] Ann-Marie Kerr MD, PhD - Tube Fitter Blood Venous blood specimen / Unknown Venipuncture / Unknown 09/06/2024 8:47 AM EST 09/06/2024 9:08 AM EST Ana Lilia WESTON LAB BLOOD ORDERABLES Final R esult Performing Organization Address City/[facility]/ZIP Co de Phone Number [facility] [address] [place] [address] * Selenium serum (09/06/2024 8:47 AM EST) Pathologist [facility] Selenium 109 63 - 160 mcg/L 09/11/2024 7:46 PM EST [facility] Comment: This test was developed and its analytical performance characteristics have been determined by [facility] [place], [place]. It has not been cleared or approved by the U.S. Food and Drug Administration. This assay has been validated pursuant to the CLIA regulations and is used for clinical purposes. Test Performed by [facility], [facility], [address] [place] [address] Edgard Dejesus M.D., Ph.D., Director of Laboratories , CLIA [id number] Blood Venous blood specimen / Unknown Venipuncture / Unknown 09/06/2024 8:47 AM EST 09/06/2024 9:08 AM EST Ana Lilia WESTON LAB BLOOD ORDERABLES Final R esult Performing Organization Address City/[facility]/ZIP Co de Phone Number [facility] [address] [place] [address] * Vitamin D 25 hydroxy (09/06/2024 8:47 AM EST) Vit D, 25-Hydroxy 36.4 30.0 - 80.0 ng/mL LAB CHEMISTRY METHOD 09/06/2024 12:07 PM EST [facility] Blood Venous blood specimen / Unknown Venipuncture / Unknown 09/06/2024 8:47 AM EST 09/06/2024 9:07 AM EST Ana Lilia WESTON LAB BLOOD ORDERABLES Final R esult [facility] ([facility]) [facility] [address] [place] [address], * Vitamin B1 (09/06/2024 8:47 AM EST) Vitamin B1 Whole Blood 43 38 - 122 ug/L 09/11/2024 9:51 AM EST [facility] Comment: This test was developed and the performance characteristics determined by [facility]. It has not been cleared or approved by the FDA. The laboratory is regulated under CLIA as qualified to perform high-complexity testing. This test is used for patient testing purposes. It should not be regarded as investigational or for research. Test performed at [facility], [address] [place], [place] ??[address] ? [phone] Ann-Marie Kerr MD, PhD - Tube Fitter Blood Venous blood specimen / Unknown Venipuncture / Unknown 09/06/2024 8:47 AM EST 09/06/2024 9:08 AM EST Ana Lilia WESTON LAB BLOOD ORDERABLES Final R [facility] Performing Organization Address City/[facility]/ZIP Co de Phone Number [facility] [address] [address] * (ABNORMAL) Vitamin B6 (09/06/2024 8:47 AM EST) Vitamin B6 (Pyridoxine) Level 2(L) 5 - 50 ug/L 09/10/2024 11:37 AM EST [facility] Comment: This test was developed and the performance characteristics determined by [facility]. It has not been cleared or approved by the FDA. The laboratory is regulated under CLIA as qualified to perform high-complexity testing. This test is used for patient testing purposes. It should not be regarded as investigational or for research. Test performed at [facility], [address], [place], [place] ??[address] ? [phone] Ann-Marie Kerr MD, PhD - Tube Fitter Blood Venous blood specimen / Unknown Venipuncture / Unknown 09/06/2024 8:47 AM EST 09/06/2024 9:16 AM EST Ana Lilia WESTON LAB BLOOD ORDERABLES Final R esult Performing Organization Address City/[facility]/ZIP Co de Phone Number [facility] [address] [place] [address] * Prealbumin (09/06/2024 8:47 AM EST) Prealbumin 22 18 - 45 mg/dL LAB CHEMISTRY METHOD 09/06/2024 11:20 AM EST [facility] Blood Venous blood specimen / Unknown Venipuncture / Unknown 09/06/2024 8:47 AM EST 09/06/2024 9:07 AM EST Ana Lilia WESTON LAB BLOOD ORDERABLES Final R esult Performing Organization Address [facility] [[email or web address]] de Phone Number [facility] [address] [place] [address], [place] [phone] * Phosphorus (09/06/2024 8:47 AM EST) Only the most recent of2 resultswithin the time period is included. Phosphorus 2.7 2.5 - 4.5 mg/dL LAB CHEMISTRY METHOD 09/06/2024 11:20 AM EST [facility] Blood Venous blood specimen / Unknown Venipuncture / Unknown 09/06/2024 8:47 AM EST 09/06/2024 9:07 AM EST Darci Gamble MD LAB BLOOD ORDERABLES Final Re sult Performing Organization Address City/[facility] Co de Phone Number [facility] [address] [place] [address], * (ABNORMAL) Parathyroid hormone intact (09/06/2024 8:47 AM EST) Pathologist [facility] PTH 129.2(H) 18.5 - 88.0 pcg/mL LAB CHEMISTRY METHOD 09/06/2024 12:07 PM EST [facility] Blood Venous blood specimen / Unknown Venipuncture / Unknown 09/06/2024 8:47 AM EST 09/06/2024 9:07 AM EST us Darci Gamble MD LAB BLOOD ORDERABLES Final Re sult Performing Organization Address [facility]/ZIP Co de Phone Number [facility] [address] [place] [address], [place] [phone] * Hemoglobin A1c (09/06/2024 8:47 AM EST) [facility] Hemoglobin A1C 4.9 <6.5 % LAB CHEMISTRY METHOD 09/09/2024 9:30 PM EST [facility] Mean Bld Glu Estim. 94 mg/dL LAB CHEMISTRY METHOD 09/09/2024 9:30 PM EST [facility] Blood Venous blood specimen / Unknown Venipuncture / Unknown 09/06/2024 8:47 AM EST 09/06/2024 9:08 AM EST us Darci Gamble MD LAB BLOOD ORDERABLES Final Re sult [facility] [address] [place] [address], [place] [phone] * Folate (09/06/2024 8:47 AM EST) Pathologist [facility] Folate 5.4 2.8 - 17.0 ng/ml LAB CHEMISTRY METHOD 09/06/2024 11:20 AM EST [facility] Blood Venous blood specimen / Unknown Venipuncture / Unknown 09/06/2024 8:47 AM EST 09/06/2024 9:07 AM EST Ana Lilia WESTON LAB BLOOD ORDERABLES Final R esult Performing Organization Address [facility]/ZIP Co de Phone Number [facility] [address] [place] [address], [place] [phone] * Ferritin (09/06/2024 8:47 AM EST) Only the most recent of2 resultswithin the time period is included. Pathologist [facility] Ferritin 17 8 - 252 ng/mL LAB CHEMISTRY METHOD 09/06/2024 11:20 AM [facility] Blood Venous blood specimen / Unknown Venipuncture / Unknown 09/06/2024 8:47 AM EST 09/06/2024 9:07 AM EST Darci Gamble MD LAB BLOOD ORDERABLES Final Re sult Performing Organization Address [facility]/ZIP Co de Phone Number [facility] [address] [place] [address], [place] [phone] * (ABNORMAL) Comprehensive metabolic panel (09/06/2024 8:47 AM EST) Pathologist [facility] Sodium 141 133 - 145 mmol/L LAB CHEMISTRY METHOD 09/06/2024 11:20 AM [facility] Potassium 3.8 3.5 - 5.5 mmol/L LAB CHEMISTRY METHOD 09/06/2024 11:20 AM [facility] Chloride 110 96 - 110 mmol/L LAB CHEMISTRY METHOD 09/06/2024 11:20 AM [facility] CO2 26 21 - 32 mmol/L LAB CHEMISTRY METHOD 09/06/2024 11:20 AM [facility] Anion Gap 5 3 - 11 LAB CHEMISTRY METHOD 09/06/2024 11:20 AM [facility] Glucose 82 70 - 100 mg/dL LAB CHEMISTRY METHOD 09/06/2024 11:20 AM [facility] BUN 12 5 - 25 mg/dL LAB CHEMISTRY METHOD 09/06/2024 11:20 AM [facility] Creatinine 1.05 0.50 - 1.10 mg/dL LAB CHEMISTRY METHOD 09/06/2024 11:20 AM [facility] eGFR 69 >=60 mL/min/1. 73m2 LAB CHEMISTRY METHOD 09/06/2024 11:20 AM [facility] Comment:Calculation based on the??Chronic Kidney Disease Epidemiology Collaboration (CKD-EPI) equation refit??without adjustment for race. BUN/Creatinine Ratio 11.4 LAB CHEMISTRY METHOD 09/06/2024 11:20 AM [facility] Calcium 8.8 8.5 - 10.5 mg/dL LAB CHEMISTRY METHOD 09/06/2024 11:20 AM [facility] AST (SGOT) 14 10 - 42 unit/L LAB CHEMISTRY METHOD 09/06/2024 11:20 AM [facility] ALT (SGPT) 22 10 - 60 unit/L LAB CHEMISTRY METHOD 09/06/2024 11:20 AM [facility] Alkaline Phosphatase 95 42 - 121 unit/L LAB CHEMISTRY METHOD 09/06/2024 11:20 AM [facility] Total Protein 5.7(L) 6.0 - 8.0 g/dL LAB CHEMISTRY METHOD 09/06/2024 11:20 AM [facility] Albumin 2.8(L) 3.2 - 5.0 g/dL LAB CHEMISTRY METHOD 09/06/2024 11:20 AM [facility] Total Bilirubin 0.4 0.0 - 1.4 mg/dL LAB CHEMISTRY METHOD 09/06/2024 11:20 AM [facility] Blood Venous blood specimen / Unknown Venipuncture / Unknown 09/06/2024 8:47 AM EST 09/06/2024 9:07 AM EST Ana Lilia WESTON LAB BLOOD ORDERABLES Final R esult [facility] ([facility]) [facility] [address] [place] [address], [place] [phone] * Vascular US duplex lower extremity venous [...] Signed Date: 09/06/2024 09:02 ET Workstation ID: [id number] Transcribed By: Self Edit Transcribed Date: 09/06/2024 [...] Signed Date: 09/06/2024 09:02 ET Workstation ID: [id number] Transcribed By: Self Edit Transcribed Date: 09/06/2024 09:01 ET us Ana Lilia WESTON CV VASCULAR PROCEDURES Final Result * Intrinsic factor blocking antibody (09/02/2024 1:23 PM EST) Pathologist [facility] Intrinsic Factor Blocking Antibody Negative Negative 09/05/2024 12:40 PM EST [facility] Comment: Positive in 50% of persons with pernicious anemia. Very high serum levels of vitamin B12 may give false positive results for intrinsic factor antibody. ??No sample should be collected from a patient who has received vitamin B12 injection therapy within the past week. Test performed at [facility], [address] , [place], [place] ??[address] ? [phone] Ann-Marie Kerr MD, PhD - Tube Fitter Blood Venous blood specimen / Unknown Venipuncture / Unknown 09/02/2024 1:23 PM EST 09/02/2024 1:37 PM EST us Reji Hernandez MD LAB BLOOD ORDERABLES Final R esult [facility] [address] [place] [address] * (ABNORMAL) Vitamin B12 (09/02/2024 1:23 PM EST) Pathologist [facility] Vitamin B-12 911(H) 250 - 900 pcg/mL LAB CHEMISTRY METHOD 09/02/2024 2:32 PM EST [facility] Blood Venous blood specimen / Unknown Venipuncture / Unknown 09/02/2024 1:23 PM EST 09/02/2024 1:37 PM EST Reji Hernandez MD LAB BLOOD ORDERABLES Final R esult Performing Organization Address City/[facility]/ZIP Co de Phone Number [facility] [address] [place] [address], [place] [phone] * (ABNORMAL) Magnesium (07/28/2024 8:49 AM EST) Only the most recent of2 resultswithin the time period is included. Pathologist [facility] Magnesium 1.8(L) 1.9 - 2.6 mg/dL LAB CHEMISTRY METHOD 07/28/2024 9:52 AM EST [facility] Blood Venous blood specimen / Unknown Venipuncture / Unknown 07/28/2024 8:49 AM EST 07/28/2024 9:04 AM EST Cassandra WESTON LAB BLOOD ORDERABLES Final Resu lt Performing Organization Address [facility]/ZIP Co de Phone Number [facility] [address] [place] [address], [place] [phone] * (ABNORMAL) Basic metabolic panel (07/28/2024 8:49 AM EST) Only the most recent of3 resultswithin the time period is included. [facility] Sodium 141 133 - 145 mmol/L LAB CHEMISTRY METHOD 07/28/2024 9:52 AM EST [facility] Potassium 4.4 3.5 - 5.5 mmol/L LAB CHEMISTRY METHOD 07/28/2024 9:52 AM [facility] Chloride 112(H) 96 - 110 mmol/L LAB CHEMISTRY METHOD 07/28/2024 9:52 AM [facility] CO2 21 21 - 32 mmol/L LAB CHEMISTRY METHOD 07/28/2024 9:52 AM EST [facility] Anion Gap 8 3 - 11 LAB CHEMISTRY METHOD 07/28/2024 9:52 AM [facility] Glucose 76 70 - 100 mg/dL LAB CHEMISTRY METHOD 07/28/2024 9:52 AM [facility] BUN 20 5 - 25 mg/dL LAB CHEMISTRY METHOD 07/28/2024 9:52 AM [facility] Creatinine 1.30(H) 0.50 - 1.10 mg/dL LAB CHEMISTRY METHOD 07/28/2024 9:52 AM [facility] eGFR 53(L) >=60 mL/min/1. 73m2 LAB CHEMISTRY METHOD 07/28/2024 9:52 AM [facility] Comment:Calculation based on the??Chronic Kidney Disease Epidemiology Collaboration (CKD-EPI) equation refit??without adjustment for race. BUN/Creatinine Ratio 15.4 LAB CHEMISTRY METHOD 07/28/2024 9:52 AM [facility] Calcium 8.2(L) 8.5 - 10.5 mg/dL LAB CHEMISTRY METHOD 07/28/2024 9:52 AM [facility] Blood Venous blood specimen / Unknown Venipuncture / Unknown 07/28/2024 8:49 AM EST 07/28/2024 9:04 AM EST Cassandra WESTON LAB BLOOD ORDERABLES Final Resu lt [facility] [address] [place] [address], * TH AN ENDOTRACHEAL(NO CHARGE) (07/26/2024 7:54 AM EST) Radha Joyner CRNA - 07/26/2024 7:54 AM EST Radha Lacey CRNA ? 07/26/2024 ??7:55 AM General Information and Staff Patient location during procedure: [place] Anesthesiologist: Tameka Gibson MD Resident/OFFICE MACHINE INSPECTOR: Radha Lacey CRNA Performed: resident/OFFICE MACHINE INSPECTOR/CAA Performed by: Radha Hard, OFFICE MACHINE INSPECTOR Authorized by: Tameka Gibson MD ?? Intubation [...] culture (07/15/2024 11:38 AM EST) Pathologist [facility] Specific [place] Urine 1.013 1.003 - 1.030 LAB URINALYSIS - AUTOMATED METHOD 07/15/2024 12:27 PM [facility] pH, Urine 5.0 5.0 - 8.0 pH LAB URINALYSIS - AUTOMATED METHOD 07/15/2024 12:27 PM [facility] Leukocytes, Urine Small(A) Negative LAB URINALYSIS - AUTOMATED METHOD 07/15/2024 12:27 PM [facility] Nitrite, Urine Negative Negative LAB URINALYSIS - AUTOMATED METHOD 07/15/2024 12:27 PM [facility] Protein, Urine 100(A) <=Trace mg/dL LAB URINALYSIS - AUTOMATED METHOD 07/15/2024 12:27 PM [facility] Glucose, Urine Negative Negative mg/dL LAB URINALYSIS - AUTOMATED METHOD 07/15/2024 12:27 PM [facility] Ketones, Urine Negative Negative mg/dL LAB URINALYSIS - AUTOMATED METHOD 07/15/2024 12:27 PM [facility] Urobilinogen, Urine 0.2 0.2 - 1.0 mg/dL LAB URINALYSIS - AUTOMATED METHOD 07/15/2024 12:27 PM [facility] Bilirubin, Urine Negative Negative LAB URINALYSIS - AUTOMATED METHOD 07/15/2024 12:27 PM [facility] Blood, Urine Trace(A) Negative LAB URINALYSIS - AUTOMATED METHOD 07/15/2024 12:27 PM [facility] RBC, Urine 2.8 0 - 4 /HPF LAB URINALYSIS - AUTOMATED METHOD 07/15/2024 12:27 PM [facility] WBC, Urine 40.5(H) 0 - 4 /HPF LAB URINALYSIS - AUTOMATED METHOD 07/15/2024 12:27 PM [facility] Squamous Epithelial, Urine 21 0 - 60 /LPF LAB URINALYSIS - AUTOMATED METHOD 07/15/2024 12:27 PM [facility] Bacteria, Urine Negative Negative /HPF LAB URINALYSIS - AUTOMATED METHOD 07/15/2024 12:27 PM [facility] Hyaline Casts, Urine 1.2 0 - 3 /LPF LAB URINALYSIS - AUTOMATED METHOD 07/15/2024 12:27 PM [facility] Urine Urine specimen obtained by clean catch procedure / Unknown Non-blood Collection / Unknown 07/15/2024 11:38 AM EST 07/15/2024 12:14 PM EST us Ana Lilia WESTON LAB URINE ORDERABLES Final R esult [facility] [address] [place] [address], * Dorsey urine culture tube (07/15/2024 11:38 AM EST) Pathologist [facility] Extra Tube Hold for add-ons. 07/15/2024 2:01 PM EST [facility] Comment:Auto resulted. Urine Urine specimen obtained by clean catch procedure / Unknown Non-blood Collection / Unknown 07/15/2024 11:38 AM EST 07/15/2024 12:14 PM EST us Ana Lilia WESTON LAB URINE ORDERABLES Final R esult [facility] [address] [place] [address], [place] [phone] * Prothrombin time with INR (07/15/2024 11:38 AM EST) [facility] Protime 12.3 10.6 - 13.9 sec LAB COAGULATION METHOD 07/15/2024 12:26 PM [facility] INR 1.0 LAB COAGULATION METHOD 07/15/2024 12:26 PM [facility] Blood Venous blood specimen / Unknown Venipuncture / Unknown 07/15/2024 11:38 AM EST 07/15/2024 12:14 PM EST us Ana Lilia WESTON LAB BLOOD ORDERABLES Final R [facility] [address] [place] [address], [place] [phone] * Type and screen (07/15/2024 11:38 AM EST) [facility] ABO Group A 07/15/2024 2:07 PM [facility] Rh Type Positive 07/15/2024 2:07 PM [facility] Antibody Screen Negative 07/15/2024 2:07 PM [facility] Blood Venous blood specimen / Unknown Venipuncture / Unknown 07/15/2024 11:38 AM EST 07/15/2024 12:14 PM EST Ana Lilia WESTON LAB BLOOD BANK TEST ORDERABL ES Final Result Performing Organization Address [facility] Co de Phone Number [facility]) [facility] [address] [place] [address], [place] [phone] * ECG 12 lead (07/15/2024 11:30 AM EST) Ventricular Rate ECG 52 BPM GEMUSE Atrial Rate 52 BPM GEMUSE P-R Interval 136 ms GEMUSE QRS Duration 70 ms GEMUSE Q-T Interval 398 ms GEMUSE QTc 370 ms GEMUSE P Wave [place] 23 degrees GEMUSE R [place] 6 degrees GEMUSE T [place] 23 degrees GEMUSE ECG Interpretation Sinus bradycardia Low voltage QRS Borderline ECG No previous ECGs available Confirmed by POWER GONZALES ([id number]) on 07/15/2024 4:46:00 PM GEMUSE 07/15/2024 11:3 0 AM EST 07/15/2024 4:46 PM EST Ana Lilia WESTON ECG ORDERABLES Final Result Performing Organization Address [facility] Co de Phone Number GEMUSE * XR Chest 2 Views (06/27/2024 8:46 AM EST) Anatomical Region Laterality Modality Body Radiographic Simran ging 06/27/2024 9:01 AM EST Impressions 06/27/2024 9:02 AM EST Normal examination of the chest. Code 73788 -------- FINAL REPORT -------- Dictated By: Alex Rolle Dictated Date: 06/27/2024 09:01 ET Assigned Physician: Alex Rolle Reviewed and Electronically Signed By: Alex Rolle Signed Date: 06/27/2024 09:02 ET Workstation ID: [id number] Transcribed By: Self Edit Transcribed Date: 06/27/2024 [...] IMPRESSION: Normal examination of the chest. Code 80635 -------- FINAL REPORT -------- Dictated By: Alex Rolle Dictated Date: 06/27/2024 09:01 ET Assigned Physician: Alex Rolle Reviewed and Electronically Signed By: Alex Rolle Signed Date: 06/27/2024 09:02 ET Workstation ID: [id number] Transcribed By: Self Edit Transcribed Date: 06/27/2024 [...] Most Recently Relevant to Health Maintenance Insurance [facility] [place] [address] Care Teams Pilling Machine Operator Relationship Specialty Start Date End Date Delores Silva MD 2 [facility] , [address] [place] [address] Physician Associ D/B/A: [facility] [place] PCP - General Internal Medicine 02/09/22
--- OUTSIDE RECORDS SUMMARY | 2024-09-17 11:53 | XMS_ITS | Encounter Summary ---
Author Organization [facility] Address [address] [place] [address] Care Team Providers Care Email Marketing Specialist Name Role Phone Delores Silva MD Primary Care Provider [phone] Reason for Visit * Reason Comments Post-op Visit 2 weeks Encounter Details Date Type Department Care Team ([facility] st Contact Info) Description 08/19/2024 3:45 PM EST Office Visit Bariatric Surgery - [place] [address] [facility] [address] [place] [phone] Ana Lilia Bruce PA [address] [facility] [address] [place] [address] Class 3 severe obesity due to excess [...] gastric bypass with Dr. Ontiveros at [facility] on 07/26/2024. - 4 lbs since [...] index (BMI) of40.0 to 44.9 in adult ([facility]) Morbid (severe) obesity due to excess calories ([facility]) HTN (hypertension) Chronic renal insufficiency Bariatric surgery [...] intake - 60-80g daily Follow up with chief electrician Continue daily vit Follow up in 4-6 weeks Medication and lab orders: No orders of the defined types were placed in this encounter. Other orders: None cc: Delores Silva MD documented in this encounter Plan of Treatment Upcoming Encounters Date Type Department Care Team (Late st Contact Info) Description 09/23/2024 11:30 AM EDT Office Visit Bariatric Surgery - [place] [address] [facility] [address] [place] [phone] Ana Lilia Bruce PA [address] [facility] [address] [place] [address] 09/30/2024 1:30 PM EDT Appointment [facility] [address] [facility] 2nd [place] [address] documented as of this encounter Visit Diagnoses Diagnosis Class 3 severe obesity due to excess calories with serious comorbidity and body mass index (BMI) of 40.0 to 44.9 in adult ([facility])- Primary Bariatric surgery status documented in this encounter Care Teams Email Marketing Specialist Relationship Specialty Start Date End Date Delores Silva MD [address] [place] [address] , [address] [facility] Physician Associ D/B/A: [facility] [place] PCP - General Internal Medicine 02/09/22 documented as of this encounter
--- OUTSIDE RECORDS SUMMARY | 2024-09-17 11:53 | XMS_ITS | Encounter Summary ---
Author Organization [facility] Address [address] [place] [address] Care Team Providers Care Dentist Attendant Name Role Phone Delores Silva MD Primary Care Provider Reason for Visit * Reason Comments Obesity Encounter Details Date Type Department Care Team ([facility] Contact Info) Description 08/26/2024 12:30 PM EST Nutrition Bariatric Surgery - [place] [address] [facility] [address] [place] [phone] Ruth Moore, RD [address] [address] Class 3 severe obesity with body mass [...] to lupus, reports no protein guidance from packing machine feeder and reports kidney function is improving DESIRED [...] Breakfast: eggs Lunch: beans Dinner: meat Snacks: palauan yogurt Beverages: water 1 bottle MVI: patch [...] (>50% of the time spent) in direct [id number] consultation for counseling, reviewing medical record and/or coordinating the plan as described above. Ruth Moore RD NUTRITION SERVICES Cosigned by Anaid Ontiveros MD at 08/28/2024 4:46 PM EST documented in this encounter Plan of Treatment Upcoming Encounters Date Type Department Care Team (Late st Contact Info) Description 09/23/2024 11:30 AM EDT Office Visit Bariatric Surgery - [place] [address] [facility] [address] [place] [phone] Ana Lilia Bruce PA [address] [facility] [address] [place] [address] 09/30/2024 1:[address] [facility]fusion [facility] [address] [facility] 2nd [place] [address] documented as of this encounter Visit Diagnoses Diagnosis Class 3 severe obesity with body mass index (BMI) of 40.0 to 44.9 in adult, unspecified obesity type, unspecified whether serious comorbidity present (CMS/HCC)- Primary documented in this encounter Care Teams Dentist Attendant Relationship Specialty Start Date End Date Delores Silva MD 2 [facility] , [facility] [address] [facility] Physician Associ D/B/A: [facility] [place] PCP - General Internal Medicine 02/09/22 documented as of this encounter
[2024-09-17 18:36] LABS: Appearance Urine Clear; Color Urine Yellow; Glucose Urine UA Negative (Negative); Leukocyte Esterase Urine Trace (Negative); Nitrite Urine Negative (Negative); PH 5.5 (5.0-9.0); Specific Gravity - Urine 1.015 (1.005-1.025); UMIC TRIGGER UA YES; Urine Blood Small (1+) (Negative); Urine Ketones Negative (Negative); Urine Protein 100 (2+) mg/dL (Neg-Trace)
[2024-09-17 19:07] LABS: Bacteria Urine Trace (None Seen); Hyaline Casts Urine 0-2 /LPF (0-2); RBC Urine 0-2 /HPF (0-2)
[2024-09-17 19:08] LABS: Creatinine Urine 146.87 mg/dL; Total Protein Urine Random 73 mg/dL (<12)
[2024-09-17 19:42] LABS: C Reactive Protein 0.12 mg/dL (< or = 0.50)
[2024-09-17 20:12] LABS: Erythrocyte Sedimentation Rate 14 MM/HR (0-20)
[2024-09-18 12:09] LABS: Complement C3 74 mg/dL (83-193)
[2024-09-18 21:38] LABS: Anti DNA DS Antibody 1 IU/mL
== END 2024-09-17 09:08 | disposition home or self-care (01) ==
LOC: HO.HKASLDS 09:07
PROVIDERS: PCP Internal Medicine; Visit Provider Internal Medicine Rheumatology
DX: M32.9 Systemic lupus erythematosus, unspecified (principal); M17.11 Unilateral primary osteoarthritis, right knee; M79.7 Fibromyalgia; R80.9 Proteinuria, unspecified; S76.311A Strain of muscle, fascia and tendon of the posterior muscle group at thigh level, right thigh, initial encounter
CPT/HCPCS: 36415; 81001; 82570; 84156; 85652; 86140; 86160; 86225; 99212

== ENCOUNTER 2024-10-03 09:35 | Outpatient (REF) | payer OTHER, SELFPAY ==
[2024-10-03 11:30] LABS: Anion Gap 7 (12-20); Blood Urea Nitrogen 10 mg/dL (9-16); Calcium 8.8 mg/dL (8.4-10.2); Carbon Dioxide 23 mmol/L (22-29); Chloride 117 mmol/L (96-108); Estimated Glomerular Filt Rate > 60; Potassium 3.8 mmol/L (3.3-5.1); Sodium 143 mmol/L (135-145); Uric Acid 6.4 mg/dL (2.4-5.7)
== END 2024-10-03 09:36 | disposition home or self-care (01) ==
LOC: HO.LAB 09:35
PROVIDERS: PCP Internal Medicine; Visit Provider Internal Medicine Nephrology
DX: R80.1 Persistent proteinuria, unspecified (principal)
CPT/HCPCS: 36415; 80051; 82310; 82565; 84520; 84550

== ENCOUNTER 2024-10-09 07:08 | Outpatient (REF) | payer OTHER, SELFPAY ==
--- NOTE | ~2024-10-09 | XR_ITS ---
EXAMINATION: XR KNEE, RIGHT CLINICAL INFORMATION: M17.11 - Unilateral primary osteoarthritis, right knee COMPARISON: 02/21/2022 TECHNIQUE: AP view bilateral knees standing, lateral and patellofemoral views right knee. FINDINGS: Left Knee: No fracture or dislocation. Severe medial compartment joint space narrowing with [id number] appearance and marginal osteophytic spurring. Mild compensatory widening of the lateral compartment with marginal osteophytic spurs. Mild varus angulation of the joint. Spurring of the tibial spines. Normal soft tissues. Left Knee: No fracture, dislocation, or suspicious bone lesion. Moderate tricompartmental joint space narrowing, moderate to severe in the lateral compartment. There are marginal osteophytic spurs laterally. There is spurring of the tibial spines. Moderate arthritis in the patellofemoral joint. There is no joint effusion. There are normal soft tissues. XR/XR knee RT 3V IMPRESSION: 1. Right knee demonstrating severe medial compartment, and moderate patellofemoral and lateral compartment osteoarthrosis. No joint effusion. Electronically signed by: Dorian Ruiz MD 10/09/2024 04:00 PM EDT
--- OUTSIDE RECORDS SUMMARY | 2024-10-09 07:11 | XMS_ITS | Clinical Summary ---
Author Organization [facility] Address [address] [place] [address] Care Team Providers Care Acid Extractor Name Role Phone Delores Mancia MD Primary [...] age to complete this topic Care Teams Acid Extractor Relationship Specialty Start Date End Date Delores Mancia MD 2 [facility] , [address] [facility] Physician Associ D/B/A: [facility] [place] [address] PCP - General Internal Medicine 12/13/23
--- OUTSIDE RECORDS SUMMARY | 2024-10-09 07:11 | XMS_ITS | Encounter Summary ---
Author Organization [facility] Address [address] [place] [address] Care Team Providers Care Channel Rebuilder Name Role Phone Delores Silva MD Primary Care Provider [phone] Encounter Details Date Type Department Care Team [...] Care Team (Late st Contact Info) Description 12/31/2024 9:15 AM EDT Office Visit Bariatric Surgery - [place] [address] [facility] [address] [place] [address] Ana Lilia Bruce PA [address] [facility] [address] [place] [address] documented as of this encounter Visit Diagnoses Not on filedocumented in this encounter Care Teams Channel Rebuilder Relationship Specialty Start Date End Date Delores Silva MD 2 [facility] , [address] [facility] Physician Associ D/B/A: [facility] [place] PCP - General Internal Medicine 02/09/22 documented as of this encounter
--- OUTSIDE RECORDS SUMMARY | 2024-10-09 07:11 | XMS_ITS | Clinical Summary ---
Author Organization [facility] Address [address] [place] [address] [address] [place] [address] Care Team Providers Care Safety Intern Name Role Phone Unavailable Primary Care Provider Unavailabl e Immunizations Name Administration Dates Next Due DTP [...] patient's age to complete this topic Insurance [facility]
--- OUTSIDE RECORDS SUMMARY | 2024-10-09 07:12 | XMS_ITS | Encounter Summary ---
Author Organization [facility] Address [address] [address] Phone Care Team Providers Care Management Accounts Manager Name Role Phone Delores Mancia MD Primary Care Provider [phone] Encounter Details Date Type Department Care Team (Late st Contact Info) Description 10/07/2024 2:00 PM EDT [facility] Visit [facility] [address] [place] [address] Darci Gamble MD [address] [address] Proteinuria, not otherwise specified (Primary Dx); Chronic kidney disease, stage 2 (mild) Social History Tobacco Use Types Packs/Day Years [...] on file documented as of this encounter Last Filed Vital Signs Vital Sign Reading Time Taken Comments Blood Pressure 140/90 10/07/2024 1:55 PM EDT Pulse 79 10/07/2024 1:55 PM EDT Temperature - - Respiratory Rate - - Oxygen Saturation 99% 10/07/2024 1:55 PM EDT Inhaled Oxygen Concentration - - Weight 105 kg (231 lb 9.6 oz) 10/07/2024 1:55 PM EDT Height - - Body Mass Index 39.75 06/06/2022 12:55 PM EST documented in this encounter Patient Instructions * Patient Instructions* Darci Gamble MD - 10/07/2024 2:00 PM EDT No NSAIDS - Do not take non-steroidal anti-inflammatory medications (NSAIDS) such as Ibuprofen (Advil, Motrin, etc), Naproxen (Aleve, etc), Celecoxib (Celebrex) or Ketoprofen. These common arthritis medications can cause permanent kidney damage or worsen your kidney damage. For mild occasional pain, Acetaminophen (Tylenol, etc) is safe for your kidneys. Sodium and Your CKD Diet: How to [...] Salted Snacks such as Crackers Potato chips [place] chips Pretzels Tortilla chips Nuts Popcorn [place] seeds Homemade or low- sodium sauces and [...] Foods such as: TV Dinners Canned raviolis Ramona Macaroni & Cheese Spaghetti Frozen prepared foods [...] are 1000 milligrams (mg) in 1gram. For [id number], if your diet prescription is 2 grams [...] Basil: Use with beef, pork, most vegetables. [place]: Use with beef, pork, most vegetables. [place]: Use with beef, pork, green beans, cauliflower, [...] doctor or dietitian beforeusing and salt substitute. Spray and create your own seasoning containing those spices that you like. If you would like to become a volunteer and find out more about what's happening where you live, contact your local [facility] Affiliate. Blood pressure monitoring education: Monitor home blood pressure values after sitting for 5 minutes with back and arm support. Keep a log. Bring your log and blood pressure cuff to your next visit. documented in this encounter Progress Notes * Darci Gamble MD - 10/07/2024 2:00 PM EDT Images from the original note were not included. Patient Name: Adriana Holland Date of : 1985, 38 y.o. Date: 10/07/24 [] New Patient [x] Established Patient [] New Hospital Follow Up [] Established Hospital Follow Up [] Telemed Visit [] H&P Referring MD: Delores Mancia MD PCP: Delores Mancia MD Reason For Visit: IM Cx GN, Proteinuria, HTN, Edema Diane Vides is a 38 y.o. 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 S/P Bariatric Surg 8 wks ago. WT decr 30 lbs thus far and leg swelling resolved and not taking diruretic anymore Cont on divoan 160 qd. She denies [...] in this encounter and updated as appropriate: Allergies Meds Problems Med Hx Surg Hx Fam Hx Constitutional: Negative for chills and fever. Respiratory: [...] by mouth 1 (one) time each day chlorthalidone 25 MG tablet Take 0.5 tablets (12.5 mg total) by mouth 1 (one) time each day 45 tablet 0 escitalopram (LEXAPRO) 10 MG tablet hydroxychloroquine (PLAQUENIL) 200 MG tablet Take 200 mg by mouth 1 (one) time each day Multiple Vitamin (multivitamin) capsule Take 1 capsule by mouth 1 (one) time each day sertraline (ZOLOFT) 25 MG tablet Take 25 mg by mouth 1 (one) time each day valsartan (DIOVAN) 160 MG tablet TAKE 1 TABLET BY MOUTH EVERY DAY 90 tablet 11 No current facility-administered medications for this visit. Allergies Allergen Reactions Metformin Other (see comments) Objective: Vitals: 10/07/24 1355 BP: 140/90 BP Location: Right upper arm Patient Position: Sitting BP Cuff Size: Adult Pulse: 79 SpO2: 99% Weight: 231 lb 9.6 oz (105 kg) 136/82 eGFR Date Value Ref Range Status 08/06/2020 58 (L) >60 ml/min GFR Calculated Date Value Ref Range Status 01/04/2024 44 (L) >60 Final Comment: This eGFR result was calculated using the CKD-EPI 2020 Creatinine Equation Chemistry Lab Units 10/03/24 0948 09/06/24 0847 07/28/24 0849 07/27/24 0644 07/15/24 1138 04/03/24 0950 01/04/24 0905 09/11/23 0000 08/07/23 0000 08/07/23 0000 06/12/23 0000 12/09/22 0816 12/09/22 0816 CREATININE mg/dL 0.82 1.05 1.3* 1.51* 1.26* 1.08* 1.53* 1.37* -- 1.26* 1.42* < > 1.28 BUN mg/dL 10 12 20 23 29* 20 19 16 -- 18 20 -- 16 BUN / CREAT RATIO -- 11.4 15.4 15.2 23 19 -- -- -- -- -- -- -- EGFRNAFR -- -- -- -- -- -- 44* -- -- 47 41 -- -- GLUCOSE mg/dL -- 82 76 92 58* 74 85 94 < > -- -- -- -- POTASSIUM mmol/L 3.8 3.8 4.4 4.4 4.1 4.6 4.7 4.4 -- 4.3 4.4 -- 4.4 SODIUM mmol/L 143 141 141 141 138 141 142 144 -- 141 139 -- 141 CO2 mmol/L 23 26 21 19* 20* 19* 21 23 -- -- -- -- 22 CHLORIDE mmol/L 117* 110 112* 115* 111* 111* 115* 115.0* -- 112.0* 114.0* -- 113* ALBUMIN g/dL -- 2.8* -- -- -- 3.7* 3.2 3.3* -- -- -- -- 3.6 HEMOGLOBIN A1C % -- 4.9 -- -- -- 4.6* -- -- -- -- -- -- -- URIC ACID mg/dL 6.4* -- -- -- -- -- -- -- -- -- -- -- -- BILIRUBIN TOTAL mg/dL -- 0.4 -- -- -- -- -- 0.3 -- -- -- -- 0.3 AST unit/L -- 14 -- -- -- -- -- 16 -- -- -- -- 17 ALT U/L -- -- -- -- -- -- -- 24 -- -- -- -- 16 < > = values in this interval not displayed. Bone Mineral Lab Units 10/03/24 0948 09/06/24 0847 07/28/24 0849 07/27/24 0644 07/15/24 1138 04/03/24 0950 01/04/24 0905 09/11/23 0000 08/07/23 0000 12/09/22 0816 CALCIUM mg/dL 8.8 8.8 8.2* 8.6 8.9 8.8 8.9 9.0 < > 8.9 PHOSPHORUS mg/dL -- 2.7 2.4* -- -- 2.2* 2.5 -- -- -- ALK PHOS unit/L -- 95 -- -- -- -- -- 94 -- 114 MAGNESIUM mg/dL -- -- -- -- -- -- 2.1 -- -- -- PTH pcg/mL -- 129.2* -- -- -- 50 93* -- -- -- VIT D 25 HYDROXY ng/mL -- -- -- -- -- 27.1* 35 -- [...] Y/O F COMPLICATED CKD 3 PROTEINURIC PATIENT REMAINS IN REMISSION H/O NEPHROTIC RANGE PROTEIUNRIA ( 2014) WITH [...] gms prior to delivery over 4 yrs ago---remains in remission, < 200 mg/Gm 3. HTN: suboptimal controlled on DIOVAN 4. Edema: recurrent 5. CVDz w Dx of SLE: cont Tx by rheum Disc: may be a candidate for Benlysta for her SLE but for renal indication would need a repeat kidney Bx but Rheum may decide to implement for SLE itself PLAN: look tpo incr BP meds but she wants to hold off at this time cont diovan 160 and she understands the improtance of not getting on thiis medication; needs cont tracking of urine studies avoid salt; will consider adding farxiga in future Encourage WT loss 1. Proteinuria, not otherwise specified 2. Chronic kidney disease, stage 2 (mild) Orders Placed This Encounter Renal Function Panel Urinalysis with microscopic Urine Albumin / Creatinine Ratio Protein, Total, Random Urine w/Creatinine (Protein/Creat Ratio) Return in about 6 months (around 04/08/2025). Darci Gamble MD Vitals reviewed. Constitutional: She appears well-developed. No distress. Cardiovascular: Normal rate, regular rhythm and normal heart sounds. She exhibits no edema. Pulmonary/Chest: Effort normal and breath sounds normal. No respiratory distress. Abdominal: Soft. There is no abdominal tenderness. No hernia. Skin: Skin is warm and dry. Psychiatric: She has a normal mood and affect. Her behavior is normal. documented in this encounter Plan of Treatment Upcoming Encounters Date Type Department Care Team (Late st Contact Info) Description 04/21/2025 1:00 PM EDT Office Visit [facility] [address] [place] [address] Darci Gamble MD [address] [facility] [address] [place] [id number] Scheduled Orders Name Type Priority Associated Diagnoses Orde r Schedule Renal Function Panel Lab Routine Proteinuria, not otherwise specified Chronic kidney disease, stage 2 (mild) Expected: 10/07/2024, Expires: 11/06/2025 Urinalysis with microscopic Lab Routine Proteinuria, not otherwise specified Chronic kidney disease, stage 2 (mild) Expected: 10/07/2024, Expires: 11/06/2025 Urine Albumin / Creatinine Ratio Lab Routine Proteinuria, not otherwise specified Chronic kidney disease, stage 2 (mild) Expected: 10/07/2024, Expires: 11/06/2025 Protein, Total, Random Urine w/Creatinine (Protein/Creat Ratio) Lab Routine Proteinuria, not otherwise specified Chronic kidney disease, stage 2 (mild) Expected: 10/07/2024, Expires: 11/06/2025 documented as of this encounter Visit Diagnoses Diagnosis Proteinuria, not otherwise specified- Primary Chronic kidney disease, stage 2 (mild) documented in this encounter Care Teams Management Accounts Manager Relationship Specialty Start Date End Date Delores Mancia MD [address] [place] [address] [address] [place], [place] PCP - General 07/20/20 documented as of this encounter
--- OUTSIDE RECORDS SUMMARY | 2024-10-09 07:12 | XMS_ITS | Clinical Summary ---
Author Organization [facility] Address [address] [place] [address] Phone Care Team Providers Care Special Service Representative Name Role Phone Delores Silva MD Primary Care Provider [phone] Allergies Active Allergy Reactions Criticality Noted Date Comments Metformin Other Medium 02/10/2022 Gums red and swollen Medications hydroxychloroquine (PLAQUENIL) 200 mg tablet Take 2 tablets [...] Active oxyCODONE (ROXICODONE) 5 mg immediate release tabletIndications: H/O gastric sleeve Take 1 tablet (5 mg total) by mouth every 4 (four) hours if needed for moderate pain. Max Daily Amount: 30 mg 15 tablet 5 Active pyridoxine (B-6) 100 mg tabletIndications: Intestinal malabsorption following gastrectomy Take 1 tablet (100 mg total) by mouth 1 (one) time each day. 30 tablet 1 5 12/11/19 25 Active B complex tablet Take 1 tablet by mouth 1 (one) time each day. 30 tablet 2 5 12/23/19 25 Active Active Problems Problem Noted Date Diagnosed Date Bariatric surgery status 08/08/2024 Chronic renal insufficiency 07/26/2024 HTN (hypertension) 07/25/2024 Morbid (severe) obesity due to excess calories 1 08/19/2023 Class 3 severe obesity with body mass index (BMI) of 40.0 to 44.9 in adult 04/12/2024 Absolute anemia 03/22/2024 Encounters Date Type Department Care Team Description 09/30/2024 Telephone [facility] [address] [facility] 2nd [place] [phone] Sharri Shipman RN 09/23/2024 11:30 AM EDT Office Visit Bariatric Surgery - [facility] [address] [facility] [address] [place] [phone] Ana Lilia Bruce PA Class 3 severe obesity due to excess calories with serious comorbidity and body mass index (BMI) of 40.0 to 44.9 in adult (CMS/HCC) (Primary Dx); Bariatric surgery status 09/09/2024 10:00 AM EST Office Visit [facility] Hematology Oncology [address] [place] [phone] Reji Hernandez MD Anemia, unspecified type (Primary Dx); Bariatric surgery status 09/06/2024 7:50 AM EST - 09/06/2024 11:59 PM EST Hospital Encounter [facility] Ultrasound [address] [place] [phone] Bilateral edema of lower extremity Discharge Disposition: Home or Self Care 09/05/2024 11:15 AM EST Office Visit Bariatric Surgery - [address] [phone] Ana Lilia Bruce PA Class 3 severe obesity due to excess calories with serious comorbidity and body mass index (BMI) of 40.0 to 44.9 in adult (CMS/[facility]) (Primary Dx); Bilateral edema of lower extremity; Bariatric surgery status 09/05/2024 Telephone Bariatric Surgery - [address] [phone] Ana Lilia Bruce PA 09/02/2024 1:28 PM EST - 09/02/2024 11:59 PM EST Hospital Encounter [facility] [address] [facility] 2nd [place] [phone] Reji Hernandez MD Anemia due to vitamin B12 deficiency, unspecified B12 deficiency type (Primary Dx) Discharge Disposition: Home or Self Care 08/26/2024 12:30 PM EST Nutrition Bariatric Surgery [address] [phone] [address] Class 3 severe obesity with body mass index (BMI) of 40.0 to 44.9 in adult, unspecified obesity type, unspecified whether serious comorbidity present (CMS/HCC) (Primary Dx) 08/19/2024 3:45 PM EST Office Visit Bariatric Surgery [address] [phone] Ana Lilia Bruce PA Class 3 severe obesity due to excess calories with serious comorbidity and body mass index (BMI) of 40.0 to 44.9 in adult (CMS/HCC) (Primary Dx); Bariatric surgery status 08/08/2024 11:15 AM EST Office Visit Bariatric Surgery - [address] [phone] Ana Lilia Bruce PA Class 3 severe obesity due to excess calories with serious comorbidity and body mass index (BMI) of 40.0 to 44.9 in adult ([facility]) (Primary Dx); Bariatric surgery status 08/05/2024 12:44 PM EST - 08/05/2024 11:59 PM EST Hospital Encounter [facility] [address] [place] [phone] Reji Hernandez MD Anemia due to vitamin B12 deficiency, unspecified B12 deficiency type (Primary Dx) Discharge Disposition: Home or Self Care 07/31/2024 Telephone Bariatric Surgery - [address] [phone] Loan Javier, ANURADHA 07/30/2024 Telephone Bariatric Surgery [address] [phone] Loan Javier, ANURADHA 07/26/2024 7:41 AM EST Anesthesia Event [facility] Main OR [address] [place] [phone] Tameka Gibson MD 07/26/2024 7:30 AM EST - 07/26/2024 10:30 AM EST Surgery [facility] Main OR [address] [place] [phone] Anaid Ontiveros MD [facility] CONVERSION OF SLEEVE TO BYPASS [[id number] (CPT??)] 07/26/2024 6:09 AM EST - 07/28/2024 2:38 PM EST Hospital Encounter [facility] Medical Surgical Unit [address] [place] [phone] Anaid Ontiveros MD H/O gastric sleeve (Primary Dx) Discharge Disposition: Home or Self Care 07/24/2024 Telephone Bariatric Surgery - [address] [phone] Loan Javier, ANURADHA 07/16/2024 11:45 AM EST Consult Bariatric Surgery - [address] [place] [address] Ana Lilia Bruce PA Class 3 severe obesity due to excess calories with serious comorbidity and body mass index (BMI) of 45.0 to 49.9 in adult ([facility]) (Primary Dx); Gastroesophageal reflux disease, unspecified whether esophagitis present from Last 3 Months Immunizations Name Administration Dates Next Due Pfizer SARS-CoV-2 COVID-19, mRNA, LNP-S, preservative free 10/04/2022 Surgical History Surgery Date Site/Laterality Comments BARIATRIC SURGERY 2019 PROCEDURE:BARIATRIC SURGERY ORIF HIP FRACTURE Right orif r hip from dislocation Medical History Medical History Date Comments Anemia DX:Anemia Hypertension DX:Hypertension Depression DX:Depression Hypothyroidism not taking meds Anxiety Arthritis Joint pain Lupus (systemic lupus erythematosus) ([facility]) Social History Tobacco Use Types Packs/Day [...] Sign Reading Time Taken Comments Blood Pressure 145/82 09/23/2024 11:29 AM EDT Pulse 77 09/23/2024 11:29 AM EDT Temperature 36.8 ??C (98.2 ??F) 09/09/2024 10:[address] Respiratory Rate 18 09/02/2024 1:34 PM EST Oxygen Saturation 100% 09/09/2024 10:02 AM EST Inhaled Oxygen Concentration - - Weight 108 kg (238 lb) 09/23/2024 11:29 AM EDT Height 162.6 cm (5' 4 ) 09/23/2024 11:29 AM EDT Body Mass Index 40.85 09/23/2024 11:29 AM EDT Plan of Treatment Upcoming Encounters Date Type Department Care Team (Late st Contact Info) Description 12/31/2024 9:15 AM EDT Office Visit Bariatric Surgery - [place] [address] [place] [phone] Ana Lilia Bruce PA [address] [place] [address] Health Maintenance Due Date Last Done Comments [...] this topic Medical Devices Implanted Type Area Mail Caller Device Identifier Shelf Expiration Date Model / [...] albuminuria creatinine ratio less than 30 mg/g ([facility]/HCC) Proteinuria Anemia, unspecified VITAMIN B1 Routine 09/06/2024 [...] ENDOTRACHEAL(NO CHARGE) Routine 07/26/2024 7:54 AM EST DC LAP SURG GASTRIC REST PROC W GSTR [...] reflex microscopic (09/06/2024 9:21 AM EST) Specific [place] Urine 1.015 1.003 - 1.030 LAB URINALYSIS - AUTOMATED METHOD 09/06/2024 10:35 AM [facility] pH, Urine 5.5 5.0 - 8.0 pH LAB URINALYSIS - AUTOMATED METHOD 09/06/2024 10:35 AM [facility] Leukocytes, Urine Small(A) Negative LAB URINALYSIS - AUTOMATED METHOD 09/06/2024 10:35 AM [facility] Nitrite, Urine Negative Negative LAB URINALYSIS - AUTOMATED METHOD 09/06/2024 10:35 AM [facility] Protein, Urine 30(A) <=Trace mg/dL LAB URINALYSIS - AUTOMATED METHOD 09/06/2024 10:35 AM [facility] Glucose, Urine Negative Negative mg/dL LAB URINALYSIS - AUTOMATED METHOD 09/06/2024 10:35 AM [facility] Ketones, Urine Negative Negative mg/dL LAB URINALYSIS - AUTOMATED METHOD 09/06/2024 10:35 AM [facility] Urobilinogen, Urine 0.2 0.2 - 1.0 mg/dL LAB URINALYSIS - AUTOMATED METHOD 09/06/2024 10:35 AM [facility] Bilirubin, Urine Negative Negative LAB URINALYSIS - AUTOMATED METHOD 09/06/2024 10:35 AM [facility] Blood, Urine Negative Negative LAB URINALYSIS - AUTOMATED METHOD 09/06/2024 10:35 AM [facility] RBC, Urine 3.4 0 - 4 /HPF LAB URINALYSIS - AUTOMATED METHOD 09/06/2024 10:35 AM [facility] WBC, Urine 40.4(H) 0 - 4 /HPF LAB URINALYSIS - AUTOMATED METHOD 09/06/2024 10:35 AM [facility] Squamous Epithelial, Urine >100(H) 0 - 60 /LPF LAB URINALYSIS - AUTOMATED METHOD 09/06/2024 10:35 AM [facility] Bacteria, Urine Negative Negative /HPF LAB URINALYSIS - AUTOMATED METHOD 09/06/2024 10:35 AM [facility] Hyaline Casts, Urine 1.6 0 - 3 /LPF LAB URINALYSIS - AUTOMATED METHOD 09/06/2024 10:35 AM [facility] Urine Urine specimen obtained by clean catch procedure / Unknown Non-blood Collection / Unknown 09/06/2024 9:21 AM EST 09/06/2024 10:22 AM EST Darci Gamble MD LAB URINE ORDERABLES Final Re sult [facility] [address] [place] [address], [place] [phone] * (ABNORMAL) Microalbumin creatinine urine ratio (09/06/2024 9:21 AM EST) Creatinine, Urine 129.0 mg/dL LAB CHEMISTRY METHOD 09/06/2024 12:09 PM EST [facility] Microalb, Ur 147.0(H) 0.0 - 29.0 mg/L LAB CHEMISTRY METHOD 09/06/2024 12:09 PM EST [facility] Microalb/Crea t Ratio 114(H) <30 mg/g creat LAB CHEMISTRY METHOD 09/06/2024 12:09 PM EST [facility] Urine Urine specimen obtained by clean catch procedure / Unknown Non-blood Collection / Unknown 09/06/2024 9:21 AM EST 09/06/2024 10:22 AM EST Darci Gamble MD LAB URINE ORDERABLES Final Re sult Performing Organization Address [facility] de Phone Number [facility] [address] [place] [address], [place] [phone] * , urine (09/06/2024 9:21 AM EST) Preg Test, Ur Negative Negative 09/06/2024 10:30 AM EST [facility] Urine Urine specimen obtained by clean catch procedure / Unknown Non-blood Collection / Unknown 09/06/2024 9:21 AM EST 09/06/2024 10:22 AM EST Ana Lilia WESTON LAB URINE ORDERABLES Final R esult Performing Organization Address [facility]/ZIP Co de Phone Number [facility] [address] [place] [address], [place] [phone] * Culture urine (09/06/2024 9:21 AM EST) Only the most recent of2 resultswithin the time period is included. Culture, Urine 50,000-99,000 CFU/mL Mixed urogenital bela, no uropathogens present. Suggest repeat specimen if clinically indicated. 09/08/2024 12:56 PM EST [facility] Urine Urine specimen obtained by clean catch procedure / Unknown Non-blood Collection / Unknown 09/06/2024 9:21 AM EST 09/06/2024 10:21 AM EST Darci Gamble MD LAB MICROBIOLOGY - GENERAL OR DERABLES Final Result [facility] [address] [place] [address], * (ABNORMAL) CBC auto differential (09/06/2024 8:47 AM EST) Only the most recent of5 resultswithin the time period is included. Pathologist [facility] WBC 5.3 4.8 - 10.8 K/mcL LAB HEMETOLOGY METHOD 09/06/2024 9:59 AM [facility] RBC 3.90 3.80 - 4.80 M/mcL LAB HEMETOLOGY METHOD 09/06/2024 9:59 AM [facility] Hemoglobin 11.7 11.5 - 16.0 g/dL LAB HEMETOLOGY METHOD 09/06/2024 9:59 AM [facility] Hematocrit 34.1(L) 35.0 - 47.0 % LAB HEMETOLOGY METHOD 09/06/2024 9:59 AM [facility] MCV 87.9 79.0 - 98.0 FL LAB HEMETOLOGY METHOD 09/06/2024 9:59 AM [facility] MCH 30.2 27.0 - 32.0 pcg LAB HEMETOLOGY METHOD 09/06/2024 9:59 AM [facility] MCHC 34.3 32.0 - 37.0 g/dL LAB HEMETOLOGY METHOD 09/06/2024 9:59 AM [facility] RDW 16.0(H) 11.0 - 15.0 % LAB HEMETOLOGY METHOD 09/06/2024 9:59 AM [facility] Platelets 238 130 - 400 K/mcL LAB HEMETOLOGY METHOD 09/06/2024 9:59 AM [facility] MPV 11.7(H) 7.0 - 11.0 FL LAB HEMETOLOGY METHOD 09/06/2024 9:59 AM [facility] NRBC 0.0 <1.0 % LAB HEMETOLOGY METHOD 09/06/2024 9:59 AM [facility] NRBC Absolute 0.00 <0.10 K/mcL LAB HEMETOLOGY METHOD 09/06/2024 9:59 AM [facility] Neutrophils Relative 70.9 % LAB HEMETOLOGY METHOD 09/06/2024 9:59 AM [facility] Lymphocytes Relative 18.7 % LAB HEMETOLOGY METHOD 09/06/2024 9:59 AM [facility] Monocytes Relative 6.9 % LAB HEMETOLOGY METHOD 09/06/2024 9:59 AM [facility] Eosinophils Relative 2.2 % LAB HEMETOLOGY METHOD 09/06/2024 9:59 AM [facility] Basophils Relative 0.7 % LAB HEMETOLOGY METHOD 09/06/2024 9:59 AM [facility] Immature Granulocytes Relative 0.6 % LAB HEMETOLOGY METHOD 09/06/2024 9:59 AM [facility] Neutrophils Absolute 3.78 1.50 - 7.00 K/mcL LAB HEMETOLOGY METHOD 09/06/2024 9:59 AM [facility] Lymphocytes Absolute 1.00 1.00 - 5.00 K/mcL LAB HEMETOLOGY METHOD 09/06/2024 9:59 AM EST [facility] Monocytes Absolute 0.37 0.20 - 1.00 K/mcL LAB HEMETOLOGY METHOD 09/06/2024 9:59 AM [facility] Eosinophils Absolute 0.12 0.00 - 0.50 K/[facility] LAB HEMETOLOGY METHOD 09/06/2024 9:59 AM EST [facility] Basophils Absolute 0.04 0.00 - 0.20 K/[facility] LAB HEMETOLOGY METHOD 09/06/2024 9:59 AM [facility] Immature Granulocytes Absolute 0.03 0.00 - 0.03 K/mcL LAB HEMETOLOGY METHOD 09/06/2024 9:59 AM [facility] Blood Venous blood specimen / Unknown Venipuncture / Unknown 09/06/2024 8:47 AM EST 09/06/2024 9:08 AM EST Darci Gamble MD LAB BLOOD ORDERABLES Final Re sult [facility] [address] [place] [address], * (ABNORMAL) Iron and TIBC (09/06/2024 8:47 AM EST) Only the most recent of2 resultswithin the time period is included. Iron 46 40 - 150 mcg/dL LAB CHEMISTRY METHOD 09/06/2024 10:20 AM [facility] TIBC 188(L) 250 - 450 mcg/dL LAB CHEMISTRY METHOD 09/06/2024 10:20 AM [facility] Iron Saturation 24 15 - 50 % LAB CHEMISTRY METHOD 09/06/2024 10:20 AM [facility] Blood Venous blood specimen / Unknown Venipuncture / Unknown 09/06/2024 8:47 AM EST 09/06/2024 9:07 AM EST Darci Gamble MD LAB BLOOD ORDERABLES Final Re sult Performing Organization Address City/[facility]/ZIP Co de Phone Number [facility] ([facility]) [facility] [address] [place] [address], * Zinc (09/06/2024 8:47 AM EST) Zinc 68 60 - 130 ug/dL 09/09/2024 2:57 PM EST [facility] Comment: Elevated results may be due to sample collected in a non-certified trace element-free tube. This test was developed and the performance characteristics determined by [facility]. It has not been cleared or approved by the FDA. The laboratory is regulated under CLIA as qualified to perform high-complexity testing. This test is used for patient testing purposes. It should not be regarded as investigational or for research. Test performed at [facility], [address] [place], [place] [address] ? [phone] Ann-Marie Kerr MD, PhD - [employer] Blood Venous blood specimen / Unknown Venipuncture / Unknown 09/06/2024 8:47 AM EST 09/06/2024 9:08 AM EST Ana Lilia WESTON LAB BLOOD ORDERABLES Final R esult Performing Organization Address City/[facility]/ZIP Co de Phone Number [facility] [address] [place] [address] * Selenium serum (09/06/2024 8:47 AM EST) Selenium 109 63 - 160 mcg/L 09/11/2024 7:46 PM EST [facility] Comment: This test was developed and its analytical performance characteristics have been determined by [employer], [place]. It has not been cleared or approved by the U.S. Food and Drug Administration. This assay has been validated pursuant to the CLIA regulations and is used for clinical purposes. Test Performed by [employer] [employer] [facility], [address] [place], [place] Edgard Dejesus M.D., Ph.D., Director of Laboratories , CLIA [id number] Blood Venous blood specimen / Unknown Venipuncture / Unknown 09/06/2024 8:47 AM EST 09/06/2024 9:08 AM EST Ana Lilia WESTON LAB BLOOD ORDERABLES Final R esult Performing Organization Address City/[facility]/ZIP Co de Phone Number [facility] [address] [place], [place] [id number] * Vitamin D 25 hydroxy (09/06/2024 8:47 AM EST) Pathologist [facility] Vit D, 25-Hydroxy 36.4 30.0 - 80.0 ng/mL LAB CHEMISTRY METHOD 09/06/2024 12:07 PM EST [facility] Blood Venous blood specimen / Unknown Venipuncture / Unknown 09/06/2024 8:47 AM EST 09/06/2024 9:07 AM EST Ana Lilia WESTON LAB BLOOD ORDERABLES Final R esult Performing Organization Address City/[facility]/ZIP Co de Phone Number [facility] [address] [place] [address], [place] [phone] * Vitamin B1 (09/06/2024 8:47 AM EST) Pathologist [facility] Vitamin B1 Whole Blood 43 38 - 122 ug/L 09/11/2024 9:51 AM EST [facility] Comment: This test was developed and the performance characteristics determined by [facility]. It has not been cleared or approved by the FDA. The laboratory is regulated under CLIA as qualified to perform high-complexity testing. This test is used for patient testing purposes. It should not be regarded as investigational or for research. Test performed at [facility], [address] [place], [place] ??[address] ? [phone] Ann-Marie Kerr MD, PhD - [employer] Blood Venous blood specimen / Unknown Venipuncture / Unknown 09/06/2024 8:47 AM EST 09/06/2024 9:08 AM EST Ana Lilia WESTON LAB BLOOD ORDERABLES Final R esult Performing Organization Address City/[facility]/ZIP Co de Phone Number [facility] [address] [place] [address] * (ABNORMAL) Vitamin B6 (09/06/2024 8:47 AM EST) Vitamin B6 (Pyridoxine) Level 2(L) 5 - 50 ug/L 09/10/2024 11:37 AM EST [facility] Comment: This test was developed and the performance characteristics determined by [facility]. It has not been cleared or approved by the FDA. The laboratory is regulated under CLIA as qualified to perform high-complexity testing. This test is used for patient testing purposes. It should not be regarded as investigational or for research. Test performed at [facility], [address] [place], [place] ??[address] ? [phone] Ann-Marie Kerr MD, PhD - [employer] Blood Venous blood specimen / Unknown Venipuncture / Unknown 09/06/2024 8:47 AM EST 09/06/2024 9:16 AM EST us Ana Lilia WESTON LAB BLOOD ORDERABLES Final R esult [facility] [address] [place] [address] * Prealbumin (09/06/2024 8:47 AM EST) Prealbumin 22 18 - 45 mg/dL LAB CHEMISTRY METHOD 09/06/2024 11:20 AM EST [facility] Blood Venous blood specimen / Unknown Venipuncture / Unknown 09/06/2024 8:47 AM EST 09/06/2024 9:07 AM EST Ana Lilia WESTON LAB BLOOD ORDERABLES Final R esult Performing Organization Address [facility]/ZIP Co de Phone Number [facility] [address] [place] [address], [place] [phone] * Phosphorus (09/06/2024 8:47 AM EST) Only [...] ORDERABLES Final Re sult Performing Organization Address [facility] Co de Phone Number [facility] [address] [place] [address], * (ABNORMAL) Parathyroid hormone intact (09/06/2024 8:47 AM EST) PTH 129.2(H) 18.5 - 88.0 pcg/mL LAB CHEMISTRY METHOD 09/06/2024 12:07 PM EST [facility] Blood Venous blood specimen / Unknown Venipuncture / Unknown 09/06/2024 8:47 AM EST 09/06/2024 9:07 AM EST us Darci Gamble MD LAB BLOOD ORDERABLES Final Re sult Performing Organization Address City/[facility]/ZIP Co de Phone Number [facility] [address] [place] [address], [place] [phone] * Hemoglobin A1c (09/06/2024 8:47 AM EST) [facility] Hemoglobin A1C 4.9 <6.5 % LAB [...] sult [facility] [address] [place] [address], [place] [phone] * Folate (09/06/2024 8:47 AM EST) [facility] Folate 5.4 2.8 - 17.0 ng/ml LAB CHEMISTRY METHOD 09/06/2024 11:20 AM EST [facility] Blood Venous blood specimen / Unknown Venipuncture / Unknown 09/06/2024 8:47 AM EST 09/06/2024 9:07 AM EST Ana Lilia WESTON LAB BLOOD ORDERABLES Final R esult [facility] [address] [place] [address], [place] [phone] * Ferritin (09/06/2024 8:47 AM EST) Only the most recent of2 resultswithin the time period is included. [facility] Ferritin 17 8 - 252 ng/mL LAB CHEMISTRY METHOD 09/06/2024 11:20 AM EST [facility] Blood Venous blood specimen / Unknown Venipuncture / Unknown 09/06/2024 8:47 AM EST 09/06/2024 9:07 AM EST us Darci Gamble MD LAB BLOOD ORDERABLES Final Re sult [facility] [address] [place] [address], * (ABNORMAL) Comprehensive metabolic panel (09/06/2024 8:47 AM EST) Sodium 141 133 - 145 mmol/L LAB CHEMISTRY METHOD 09/06/2024 11:20 AM [facility] Potassium 3.8 3.5 - 5.5 [...] WESTON LAB BLOOD ORDERABLES Final R esult [facility] [address] [place] [address], * Vascular US duplex lower extremity venous [...] Signed Date: 09/06/2024 09:02 ET Workstation ID: [id number] Transcribed By: Self Edit Transcribed Date: 09/06/2024 [...] Signed Date: 09/06/2024 09:02 ET Workstation ID: [id number] Transcribed By: Self Edit Transcribed Date: 09/06/2024 09:01 ET us Ana Lilia WESTON CV VASCULAR PROCEDURES Final Result * Intrinsic factor blocking antibody (09/02/2024 1:23 PM EST) Intrinsic Factor Blocking Antibody Negative Negative 09/05/2024 12:40 PM EST [facility] Comment: Positive in 50% of persons with pernicious anemia. Very high serum levels of vitamin B12 may give false positive results for intrinsic factor antibody. ??No sample should be collected from a patient who has received vitamin B12 injection therapy within the past week. Test performed at [facility], [address] , [place], [place] ??[address] ? [phone] Ann-Marie Kerr MD, PhD - [employer] Blood Venous blood specimen / Unknown Venipuncture / Unknown 09/02/2024 1:23 PM EST 09/02/2024 1:37 PM EST Reji Hernandez MD LAB BLOOD ORDERABLES Final R esult [facility] [address] [place] [address] * (ABNORMAL) Vitamin B12 (09/02/2024 1:23 PM EST) Vitamin B-12 911(H) 250 - 900 pcg/mL LAB CHEMISTRY METHOD 09/02/2024 2:32 PM EST [facility] Blood Venous blood specimen / Unknown Venipuncture / Unknown 09/02/2024 1:23 PM EST 09/02/2024 1:37 PM EST Reji Hernandez MD LAB BLOOD ORDERABLES Final R esult [facility] [address] [place] [address], [place] [phone] * (ABNORMAL) Magnesium (07/28/2024 8:49 AM EST) Only the most recent of2 resultswithin the time period is included. Magnesium 1.8(L) 1.9 - 2.6 mg/dL LAB CHEMISTRY METHOD 07/28/2024 9:52 AM EST [facility] Blood Venous blood specimen / Unknown Venipuncture / Unknown 07/28/2024 8:49 AM EST 07/28/2024 9:04 AM EST us Cassandra WESTON LAB BLOOD ORDERABLES Final Resu lt [facility] [address] [place] [address], * (ABNORMAL) Basic metabolic panel (07/28/2024 8:49 AM EST) Only the most recent of3 resultswithin the time period is included. Sodium 141 133 - 145 mmol/L LAB CHEMISTRY METHOD 07/28/2024 9:52 AM [facility] Potassium 4.4 3.5 - 5.5 mmol/L LAB CHEMISTRY METHOD 07/28/2024 9:52 AM [facility] Chloride 112(H) 96 - 110 mmol/L LAB CHEMISTRY METHOD 07/28/2024 9:52 AM [facility] CO2 21 21 - 32 mmol/L LAB CHEMISTRY METHOD 07/28/2024 9:52 AM [facility] Anion Gap 8 3 - 11 LAB CHEMISTRY METHOD 07/28/2024 9:52 AM [facility] Glucose 76 70 - 100 mg/dL LAB CHEMISTRY METHOD 07/28/2024 9:52 AM [facility] BUN 20 5 - 25 mg/dL LAB CHEMISTRY METHOD 07/28/2024 9:52 AM [facility] Creatinine 1.30(H) 0.50 - 1.10 mg/dL LAB CHEMISTRY METHOD 07/28/2024 9:52 AM [facility] eGFR 53(L) >=60 mL/min/1. 73m2 LAB CHEMISTRY METHOD 07/28/2024 9:52 AM [facility] Comment:Calculation based on the??Chronic Kidney Disease Epidemiology Collaboration (CKD-EPI) equation refit??without adjustment for race. BUN/Creatinine Ratio 15.4 LAB CHEMISTRY METHOD 07/28/2024 9:52 AM [facility] Calcium 8.2(L) 8.5 - 10.5 mg/dL LAB CHEMISTRY METHOD 07/28/2024 9:52 AM EST [facility] Blood Venous blood specimen / Unknown Venipuncture / Unknown 07/28/2024 8:49 AM EST 07/28/2024 9:04 AM EST us Cassandra WESTON LAB BLOOD ORDERABLES Final Resu lt [facility] ([facility] [address] [place] [address], [place] [phone] * TH AN ENDOTRACHEAL(NO CHARGE) (07/26/2024 7:54 AM EST) Radha Joyner CRNA - 07/26/2024 7:54 AM EST Radha Lacey CRNA ? 07/26/2024 ??7:55 AM General Information and Staff Patient location during procedure: [place] Anesthesiologist: Tameka Gibson MD Resident/TELEGRAPH PLANT MAINTAINER: Radha Lacey CRNA Performed: resident/TELEGRAPH PLANT MAINTAINER/CAA Performed by: Radha Lacey CRNA Authorized by: [...] and culture (07/15/2024 11:38 AM EST) Specific [place] Urine 1.013 1.003 - 1.030 LAB URINALYSIS - AUTOMATED METHOD 07/15/2024 12:27 PM [facility] pH, Urine 5.0 5.0 - 8.0 pH LAB URINALYSIS - AUTOMATED METHOD 07/15/2024 12:27 PM [facility] Leukocytes, Urine Small(A) Negative LAB URINALYSIS - AUTOMATED METHOD 07/15/2024 12:27 PM [facility] Nitrite, Urine Negative Negative LAB URINALYSIS - AUTOMATED METHOD 07/15/2024 12:27 PM [facility] Protein, Urine 100(A) <=Trace mg/dL LAB URINALYSIS - AUTOMATED METHOD 07/15/2024 12:27 PM [facility] Glucose, Urine Negative Negative mg/dL LAB URINALYSIS - AUTOMATED METHOD 07/15/2024 12:27 PM [facility] Ketones, Urine Negative Negative mg/dL LAB URINALYSIS - AUTOMATED METHOD 07/15/2024 12:27 PM [facility] Urobilinogen, Urine 0.2 0.2 - 1.0 mg/dL LAB URINALYSIS - AUTOMATED METHOD 07/15/2024 12:27 PM [facility] Bilirubin, Urine Negative Negative LAB URINALYSIS - AUTOMATED METHOD 07/15/2024 12:27 PM [facility] Blood, Urine Trace(A) Negative LAB URINALYSIS - AUTOMATED METHOD 07/15/2024 12:27 PM [facility] RBC, Urine 2.8 0 - 4 /HPF LAB URINALYSIS - AUTOMATED METHOD 07/15/2024 12:27 PM [facility] WBC, Urine 40.5(H) 0 - 4 /HPF LAB URINALYSIS - AUTOMATED METHOD 07/15/2024 12:27 PM [facility] Squamous Epithelial, Urine 21 0 - 60 /LPF LAB URINALYSIS - AUTOMATED METHOD 07/15/2024 12:27 PM [facility] Bacteria, Urine Negative Negative /HPF LAB URINALYSIS - AUTOMATED METHOD 07/15/2024 12:27 PM [facility] Hyaline Casts, Urine 1.2 0 - 3 /LPF LAB URINALYSIS - AUTOMATED METHOD 07/15/2024 12:27 PM [facility] Urine Urine specimen obtained by clean catch procedure / Unknown Non-blood Collection / Unknown 07/15/2024 11:38 AM EST 07/15/2024 12:14 PM EST Ana Lilia WESTON LAB URINE ORDERABLES Final R esult Performing Organization Address City/[facility]/ZIP Co de Phone Number [facility] [address] [place] [address], [place] [phone] * Dorsey urine culture tube (07/15/2024 11:38 AM EST) Extra Tube Hold for add-ons. 07/15/2024 2:01 PM [facility] Comment:Auto resulted. Urine Urine specimen obtained by clean catch procedure / Unknown Non-blood Collection / Unknown 07/15/2024 11:38 AM EST 07/15/2024 12:14 PM EST Ana Lilia WESTON LAB URINE ORDERABLES Final R esult Performing Organization Address City/[facility]/ZIP Co de Phone Number [facility] [address] [place] [address], [place] [phone] * Prothrombin time with INR (07/15/2024 11:38 AM EST) Protime 12.3 10.6 - 13.9 sec LAB COAGULATION METHOD 07/15/2024 12:26 PM EST [facility] INR 1.0 LAB COAGULATION METHOD 07/15/2024 12:26 PM EST [facility] Blood Venous blood specimen / Unknown Venipuncture / Unknown 07/15/2024 11:38 AM EST 07/15/2024 12:14 PM EST us Ana Lilia WESTON LAB BLOOD ORDERABLES Final R esult Performing Organization Address [facility]/ZIP Co de Phone Number [facility] [address] [place] [address], [place] [phone] * Type and screen (07/15/2024 11:38 AM EST) [facility] ABO Group A 07/15/2024 2:07 PM EST [facility] Rh Type Positive 07/15/2024 2:07 PM EST [facility] Antibody Screen Negative 07/15/2024 2:07 PM EST [facility] Blood Venous blood specimen / Unknown Venipuncture / Unknown 07/15/2024 11:38 AM EST 07/15/2024 12:14 PM EST us Ana Lilia WESTON LAB BLOOD BANK TEST ORDERABL ES Final Result Performing Organization Address [facility]/ZIP Co de Phone Number [facility] [address] [place] [address], [place] [phone] * ECG 12 lead (07/15/2024 11:30 AM EST) Ventricular Rate ECG 52 BPM GEMUSE Atrial Rate 52 BPM GEMUSE P-R Interval 136 ms GEMUSE QRS Duration 70 ms GEMUSE Q-T Interval 398 ms GEMUSE QTc 370 ms GEMUSE P Wave [place] 23 degrees GEMUSE R [place] 6 degrees GEMUSE T [place] 23 degrees GEMUSE ECG Interpretation Sinus bradycardia Low voltage QRS Borderline ECG No previous ECGs available Confirmed by POWER GONZALES ([id number]) on 07/15/2024 4:46:00 PM GEMUSE 07/15/2024 11:3 0 AM EST 07/15/2024 4:46 PM EST Ana Lilia WESTON ECG ORDERABLES Final Result GEMUSE * Lipid panel (09/11/2023) LDL/HDL Ratio 3 0 - 4 Triglycerides 129 0 - 150 mg/dL Cholesterol 159 0 - 200 mg/dL HDL 47 >=40 mg/dL LDL Cholesterol 87 0 - 100 mg/dL Blood Venous blood specimen / Unknown Historical Provider LAB BLOOD ORDERABLES Sonam l Result from Last 3 Months or Most Recently Relevant to Health Maintenance Insurance [facility] Care Teams Special Service Representative Relationship Specialty Start Date End Date Delores Silva MD [address] [place] [address] , [facility] [[email or web address]] [address] [facility] D/B/A: [facility] [place], [place] PCP - General Internal Medicine 02/09/22
--- OUTSIDE RECORDS SUMMARY | 2024-10-09 07:12 | XMS_ITS | Data Portability ---
Author Organization [facility] [address] Address [address] [place] [id number] Assessment No assessment recorded. Plan of Treatment Reminders Order Date Submit Date Provider Last Modified By Organization Details Last Modified Time Details Appointments None recorded. Lab None recorded. Referral None recorded. Procedures None recorded. Surgeries None recorded. Imaging None recorded. Medication Orders mupirocin 2 % topical ointment 2023 024 [facility] #[id number], [address] [place], [address], 4 18:36:48 cephalexin 500 mg capsule 2023 024 [facility] #[id number], [address] [place], [address], 4 18:36:48 Patient TargetsNo targets recorded. Patient InstructionsNo instructions recorded. Reason for Referral None Reported. Problems Name Problem SNOMED Code Status Onset Date Resolution Date Notes Provider Name and Address Organization Details Recorded Time Lupus erythematosus 111180421 Active 2023 Melody Palmer null, [place] - [facility] 17:11:28 Depressive disorder 91445626 Active 2023 Melody Palmer null, PA - [facility] 17:11:43 Anxiety 91319976 Active 2023 Melody Palmer null, PA - [facility] 17:11:52 Problem Notes None recorded. Medical Equipment None Reported. Allergies Allergen ID Allergen Name Allergen Category Reaction Reaction Severity Criticality Documentation Date Start Date Code Code System Note Provider Name and Address Organization Details Recorded Time 146112 metformin medicatio n hives mild Not available [...] Updated DateTime 4 162.56 cm 45.3 kg/m2 566717. 39 g 97.7 [degF] 18 /min 100 [...] SNOMED-CT Code Diagnosis ICD10 Code Diagnosis Note [id number] Eric Coto, JAMES [address] [place] [address] 10/07/2023 16:55:57 10/07/2023 17:37:11 Impetigo 56610229 L01.00 Impetigo (say im-puh-TY -go ) is [...] you can use an alcohol-ba sed hand traffic officer. Don't share items such as towels, sheets, [...] Joseph Member ID Guarantor Name 10/07/2023 1 [facility] (MEDICAID HMO) MISTY Vides [id number] Diane Vides Notes Date Note Type Note [...] Coto NP [address] [place], [address], [place] - [facility] 10/07/2023 18:36:57 OBGyn Episode No OBEpisode recorded.
--- OUTSIDE RECORDS SUMMARY | 2024-10-09 07:12 | XMS_ITS | Clinical Summary ---
Author Organization [facility] Facility Address [address] [place] [address] Care Team Providers Care Manager Life [employer] Name Role Phone Delores Mancia MD Primary Care Provider Allergies Active Allergy Reactions Criticality Noted Date Comments Metformin Other (see comments) 08/25/2020 Medications acetaminophen (TYLENOL) 325 MG tablet TAKE 3 TABLETS EVERY 6 HOURS NEEDED FOR HEADACHE 1 Active Calcium Carbonate-Sujey min D 600-200 MG-UNIT capsule Take 1 capsule by mouth 1 (one) time each day Active sertraline (ZOLOFT) 25 MG tablet Take 25 mg by mouth 1 (one) time each day 1 Active hydroxychloroq uine (PLAQUENIL) 200 MG tablet Take 200 mg by mouth 1 (one) time each day 1 Active ALPRAZolam (XANAX) 0.5 MG tablet Take 0.5 mg by mouth if needed 1 Active Multiple Vitamin (multivitamin) capsule Take 1 capsule by mouth 1 (one) time each day Active escitalopram (LEXAPRO) 10 MG tablet 2 Active chlorthalidone 25 MG tablet Take 0.5 tablets (12.5 mg total) by mouth 1 (one) time each day 45 tablet 5 025 Active valsartan (DIOVAN) 160 MG tabletIndicati ons:Persistent proteinuria,Ch ronic kidney disease stage 1 TAKE 1 TABLET BY MOUTH EVERY DAY 90 tablet 11 5 Active valsartan (DIOVAN) 160 MG tabletIndicati ons:Persistent proteinuria,Ch ronic kidney disease stage 1 TAKE 1 TABLET BY MOUTH 1 TIME EACH DAY. 90 tablet 11 3 025 Discontinued Active Problems Problem Noted Date Diagnosed Date Chronic kidney disease, stage 2 (mild) Hypertensive disorder 07/25/2024 Severe obesity 10/23/2023 Abnormal [...] Encounters Date Type Department Care Team Description 10/07/2024 2:00 PM EDT Office Visit [facility] [address] [place] [address] Darci Gamble MD Proteinuria, not otherwise specified (Primary Dx); Chronic kidney disease, stage 2 (mild) 10/03/2024 Orders Only [facility] [address] [phone] Darci Gamble MD 09/30/2024 Orders Only [facility] [address] [phone] Darci Gamble MD Chronic kidney disease, stage 2 (mild); Persistent proteinuria 09/16/2024 Refill [facility] [address] [place] [address] Darci Gamble MD Persistent proteinuria; Chronic kidney disease stage 1 09/12/2024 9:45 AM EST Telemedicine [facility] [address] [phone] Darci Gamble MD Chronic kidney disease, stage 2 (mild) (Primary Dx); Persistent proteinuria 09/06/2024 Orders Only [facility] [address] [phone] Darci Gamble MD 07/11/2024 Office Communication [facility] [address] [phone] Zoey Cuevas from Last 3 Months Immunizations [...] 9.6 oz) 10/07/2024 1:55 PM EDT Height 162.6 cm (5' 4 ) 06/06/2022 12:55 PM EST Body Mass Index 39.75 06/06/2022 12:55 PM EST Plan of Treatment Upcoming Encounters Date Type Department Care Team (Late st Contact Info) Description 04/21/2025 1:00 PM EDT Office Visit [facility] the [address] [place] [address] Darci Gamble MD [address] [facility] [address] [place] [phone] Health Maintenance Due Date Last Done Comments Pneumococcal Vaccine: Pediat rics (0 to 5 Years) and At-Risk Patients (6 to 64 Years) (1 of 2 - PCV) 11/24/1989 Influenza Vaccine (Season Ended) 2025 05/02/2022, 05/12/2021, 05/05/2020, Additional history exists Hepatitis B Vaccine Completed 09/07/1998, 05/06/1998, 02/17/1998 Procedures Procedure Name Priority Date/Time Associated Diagnosis Comments CALCIUM Routine 10/03/2024 9:48 AM EDT CREATININE, BLOOD Routine 10/03/2024 9: 48 AM EDT BUN Routine 10/03/2024 9:48 AM EDT ELECTROLYTE PANEL Routine 10/03/2024 9:4 8 AM EDT URIC ACID Routine 10/03/2024 9:48 AM EDT Chronic kidney disease, stage 2 (mild) Persistent proteinuria URINE CULTURE Routine 09/06/2024 9:21 AM EST [...] EST from Last 3 Months Results * Creatinine (10/03/2024 9:48 AM EDT) Creatinine Serum 0.82 0.5 - 1.4 mg/dL See order comments eGFR >60 See order comments Comment: Chronic Kidney Disease: ??Estimated GFR < 60 mL/min/1.73m2 Severe Kidney Disease: ??Estimated GFR < 15 mL/min/1.73m2 10/03/2024 9:48 AM EDT 10/03/2024 9:48 AM EDT us Darci Gamble MD LAB BLOOD ORDERABLES Final Re sult [place] See order comments [place] [address] * (ABNORMAL) Uric acid (10/03/2024 9:48 AM EDT) Uric Acid 6.4(H) 2.4 - 5.7 mg/dL See order comments Blood (Blood, Venous) 10/03/2024 9:48 AM EDT 10/03/2024 9:48 AM EDT us Darci Gamble MD LAB BLOOD ORDERABLES Final Re sult Performing Organization Address [facility] de Phone Number [place] See order comments [place] [address] * BUN (10/03/2024 9:48 AM EDT) BUN 10 9 - 16 mg/dL See order comments 10/03/2024 9:48 AM EDT 10/03/2024 9:48 AM EDT us Darci Gamble MD LAB BLOOD ORDERABLES Final Re sult Performing Organization Address [facility] de Phone Number [place] See order comments [place] [address] * Calcium (10/03/2024 9:48 AM EDT) Calcium 8.8 8.4 - 10.2 mg/dL See order comments 10/03/2024 9:48 AM EDT 10/03/2024 9:48 AM EDT us Darci Gamble MD LAB BLOOD ORDERABLES Final Re sult Performing Organization Address [facility] de Phone Number [place] See order comments [place] [address] * (ABNORMAL) Electrolyte panel (10/03/2024 9:48 AM EDT) Sodium 143 135 - 145 mmol/L See order comments Potassium 3.8 3.3 - 5.1 mmol/L See order comments Chloride 117(H) 96 - 108 mmol/L See order comments Bicarbonate (CO2) 23 22 - 29 mmol/L See order comments Anion Gap 7(L) 12 - 20 See order comments 10/03/2024 9:48 AM EDT 10/03/2024 9:48 AM EDT Darci Gamble MD LAB BLOOD ORDERABLES Final Re sult Performing Organization Address City/[facility]/ZIP Co de Phone Number [place] See order comments [place] [address] * (ABNORMAL) Urine Albumin / Creatinine Ratio (09/06/2024 9:21 AM EST) Pathologist [facility] Creatinine, Urine 129.0 mg/dL [facility] Microalbumin Urine Random 147.0(H) 0.0 - 29.0 mg/L [facility] Microalbumin/Cre atinine Ratio 114(H) <30 mg/g creat [facility] 09/06/2024 9:21 AM EST 09/06/2024 10:22 AM EST Darci Gamble MD LAB URINE ORDERABLES Final Re sult Performing Organization Address [facility] de Phone Number [facility] [address] [place] [address] * (ABNORMAL) Urinalysis Reflex Microscopic (09/06/2024 9:21 AM EST) Specific [place] 1.015 1.003 - 1.030 [facility] pH Urine 5.5 5.0 - 8.0 pH [facility] LEUKOCYTES, URINE Small(A) Negative [facility] Nitrite, Urine Negative Negative [facility] Protein, Urine 30(A) <=Trace mg/dL [facility] Glucose Urine Negative Negative mg/dL [facility] Ketones, Urine Negative Negative mg/dL [facility] Urobilinogen Urine 0.2 0.2 - 1.0 mg/dL [facility] Bilirubin Urine Negative Negative [facility] Blood Urine Negative Negative [facility] RBC, Urine 3.4 0 - 4 /HPF [facility] WBC, Urine 40.4(H) 0 - 4 /HPF [facility] Squamous Epithelial, Urine >100(H) 0 - 60 /LPF [facility] Bacteria, Urine Negative Negative /HPF [facility] Hyaline Casts, UA 1.6 0 - 3 /LPF [facility] 09/06/2024 9:21 AM EST 09/06/2024 10:22 AM EST Darci Gamble MD LAB URINE ORDERABLES Final Re sult Performing Organization Address [facility] Co de Phone Number [facility] [address] [place] [address] * Urine Culture (09/06/2024 9:21 AM EST) Pathologist [facility] Culture Result, Urine 50,000-99,000 CFU/mL Mixed urogenital bela, no uropathogens present. Suggest repeat specimen if clinically indicated. [facility] 09/06/2024 9:21 AM EST 09/06/2024 10:21 AM EST Darci Gamble MD LAB URINE ORDERABLES Final Re sult Performing Organization Address City/[facility]/ZIP Co de Phone Number [facility] [address] [place] [address] * (ABNORMAL) Iron Panel (09/06/2024 8:47 AM EST) Iron 46 40 - 150 mcg/dL [facility] TIBC 188(L) 250 - 450 mcg/dL [facility] Iron Saturation (TSat) 24 15 - 50 % [facility] 09/06/2024 8:47 AM EST 09/06/2024 9:07 AM EST us Darci Gamble MD LAB [id number] SOLICITED RESULTS Final Result [facility] [address] [place] [address] * (ABNORMAL) CBC auto differential (09/06/2024 8:47 AM EST) WBC 5.3 4.8 - 10.8 K/mcL [facility] RBC 3.90 3.80 - 4.80 [facility] Hgb 11.7 11.5 - 16.0 g/dL [facility] Hematocrit 34.1(L) 35.0 - 47.0 % [facility] MCV 87.9 79.0 - 98.0 FL [facility] MCH 30.2 27.0 - 32.0 pcg [facility] MCHC 34.3 32.0 - 37.0 g/dL [facility] RDW 16.0(H) 11.0 - 15.0 % [facility] Platelets 238 130 - 400 K/[facility] MPV 11.7(H) 7.0 - 11.0 FL [facility] nRBC Count 0.0 <1.0 % [facility] NRBC Absolute 0.00 <0.10 [facility] Bands Relative 70.9 % [facility] Lymphocyte Realative Percent 18.7 % [facility] Monocyte Relative Percent 6.9 % [facility] Eosinophil Relative Percent 2.2 % [facility] Basophils Relative Diff 0.7 % [facility] Immature Granulocytes 0.6 % [facility] Neutrophils Absolute 3.78 1.50 - 7.00 [facility] Lymphocytes Absolute 1.00 1.00 - 5.00 [facility] Monocytes Absolute 0.37 0.20 - 1.00 [facility] Eosinophil Absolute 0.12 0.00 - 0.50 [facility] Basophil ABS 0.04 0.00 - 0.20 [facility] Immature Grans (Absolute) 0.03 0.00 - 0.03 [facility] 09/06/2024 8:47 AM EST 09/06/2024 9:08 AM EST Darci Gamble MD LAB BLOOD ORDERABLES Final Re sult Performing Organization Address [facility] Co de Phone Number [facility] [address] [place] [address] * Phosphorus (09/06/2024 8:47 AM EST) Phosphorus 2.7 2.5 - 4.5 mg/dL [facility] 09/06/2024 8:47 AM EST 09/06/2024 9:07 AM EST Darci Gamble MD LAB BLOOD ORDERABLES Final Re sult Performing Organization Address [facility] Co de Phone Number [facility] [address] [place] [address] * (ABNORMAL) PTH, Intact (09/06/2024 8:47 AM EST) PTH 129.2(H) 18.5 - 88.0 pcg/mL [facility] 09/06/2024 8:47 AM EST 09/06/2024 9:07 AM EST Darci Gamble MD LAB BLOOD ORDERABLES Final Re sult Performing Organization Address [facility]/ZIP Co de Phone Number [facility] [address] [place] [address] * Hemoglobin A1c (09/06/2024 8:47 AM EST) Hemoglobin A1C 4.9 <6.5 % [facility] Estimated Average Glucose 94 mg/dL [facility] 09/06/2024 8:47 AM EST 09/06/2024 9:08 AM EST Darci Gamble MD LAB BLOOD ORDERABLES Final Re sult Performing Organization Address [facility] Co de Phone Number [facility] [address] [place] [address] * Ferritin (09/06/2024 8:47 AM EST) Ferritin 17 8 - 252 ng/mL [facility] 09/06/2024 8:47 AM EST 09/06/2024 9:07 AM EST Darci Gamble MD LAB BLOOD ORDERABLES Final Re sult Performing Organization Address [facility] Co de Phone Number [facility] [address] [place] [address] from Last 3 Months Insurance [facility] MEDICAID [facility] MEDICAID Care Teams Manager Life Sciences Relationship Specialty Start Date End Date Delores Mancia MD [address] [place], [place] PCP - General 07/20/20
--- OUTSIDE RECORDS SUMMARY | 2024-10-09 07:12 | XMS_ITS | Encounter Summary ---
Author Organization [facility] Address [address] [address] Phone Care Team Providers Care Construction Superintendent Name Role Phone Delores Mancia MD Primary Care Provider [phone] Encounter Details Date Type Department Care Team (Late Contact Info) Description 09/30/2024 Orders Only [facility] [address] [address] Darci Gamble MD [facility] [address] [address] Chronic kidney disease, stage 2 (mild); Persistent proteinuria Social History Tobacco Use Types [...] Office Visit [facility] [address] [place] [address] Darci Gamble MD [address] [place] [phone] documented as of this encounter Procedures Procedure Name Priority Date/Time Associated Diagnosis Comments URIC ACID Routine 10/03/2024 9:48 AM EDT Chronic kidney disease, stage 2 (mild) Persistent proteinuria documented in this encounter Results * (ABNORMAL) Uric acid (10/03/2024 9:48 AM EDT) Uric Acid 6.4(H) 2.4 - 5.7 mg/dL See order comments Blood (Blood, Venous) 10/03/2024 9:48 AM EDT 10/03/2024 9:48 AM EDT us Darci Gamble MD LAB BLOOD ORDERABLES Final Re sult [place] See order comments [place] [address] documented in this encounter Visit Diagnoses Diagnosis Chronic kidney disease, stage 2 (mild) Persistent proteinuria documented in this encounter Care Teams Construction Superintendent Relationship Specialty Start Date End Date Delores Mancia MD [address] [place], [place] PCP - General 07/20/20 documented as of this encounter
== END 2024-10-09 07:09 | disposition home or self-care (01) ==
LOC: HO.HOSX 07:08
PROVIDERS: Visit Provider Physician Assistant
DX: M17.11 Unilateral primary osteoarthritis, right knee (principal)
CPT/HCPCS: 73562; 99212

== ENCOUNTER 2024-10-09 08:32 | Outpatient (AMB) | payer OTHER, SELFPAY ==
[2024-10-09 08:39] VITALS: BMI 41.2
--- NOTE | 2024-10-09 08:39 | MHC.OFFVIS ---
Vital Signs 10/09/24 08:39 Height 5 ft 4 in Weight 240 lb BMI 41.2 Intake Visit Reasons: New prob- Right knee pain Intake Note: Diane is a 38 year old female who presents today for a new problem visit to discuss right knee pain. Patient was previously seen in office for her left knee and gel injections were given which provides her with relief. Today she presents with right knee pain that has been present for about a month. No traumatic injury to her knee however she mentions that she fell twice due to her knee giving out. Patient reports her pain wraps around her whole knee and mild numbness in her, states left knee feels more numb. Difficulty with stair use. She started PT last week. Finds mild relief with Tylenol. Allergies metformin [METFORMIN] Allergy (Intermediate, Verified 10/09/24 09:03) INFLAMMED GUMS, red gums, redness of gums doxycycline Adverse Reaction (Intermediate, Verified 10/09/24 09:03) Itching Medication List - Last Reconciled 10/09/24 by Eliza Bryant PA-C acetaminophen (Tylenol) 650 mg (2 x 325 mg) PO Q4H PRN albuterol sulfate 90 mcg/actuation (ProAir HFA) 2 puffs PO Q4-6H PRN albuterol sulfate 90 mcg/actuation 1 inh inhalation Q4-6H PRN cetirizine 10 mg PO DAILY PRN cholecalciferol (vitamin D3) 25 mcg PO DAILY 90 days clotrimazole 1% appl topical DAILY cyclobenzaprine 5 mg PO BEDTIME PRN diclofenac sodium 1% 4 grams topical QID fluticasone propionate 50 mcg/actuation (Flonase Allergy Relief) 1 spray intranasal DAILY 30 days furosemide (Lasix) 20 mg PO DAILY [hinge brace HEAVY DUTY] leflunomide 20 mg PO DAILY levothyroxine 25 mcg PO DAILY 90 days loratadine 10 mg PO DAILY PRN 90 days omeprazole 20 mg PO DAILY Plaquenil (hydroxychloroquine) 400 mg (2 x 200 mg) PO DAILY NS Shower Chair HEAVY DUTY trazodone 25 - 50 mg PO BEDTIME triamcinolone acetonide (Nasal Allergy) 2 sprays intranasal DAILY valacyclovir 1,000 mg PO q12h valsartan 160 mg PO DAILY HPI HPI New prob- Right knee pain: Details: The patient is a 38-year-old female presenting with bilateral knee pain primarily in the right knee, ongoing for the past two months. Initially reported as a sense of weakness, particularly when descending stairs, the right knee pain has contributed to limping and difficulty with prolonged walking and daily activities. The patient has severe osteoarthritis and previously received cortisone injections in both knees with little effect, though gel injections, administered in December 2022 for the left knee, were found beneficial. Recent exacerbations led to an emergency visit and urgent care where they instructed her to use enedina wrap and f/u with ortho. [facility] Medical History Osteoarthritis of knees, bilateral Hyperparathyroidism Vaginal discharge Physical exam Open wound of thumb Lupus Mild recurrent major depression Morbid obesity with BMI of 40.0-44.9, adult Vitamin D deficiency BMI 38.0-38.9,adult Intestinal malabsorption following gastrectomy Preeclampsia Obesity (BMI 30-39.9) Knee pain Hypertension Depression Proteinuria Autoimmune thyroiditis SLE (systemic lupus erythematosus related syndrome) Surgical History History of foot surgery History of open reduction and internal fixation (ORIF) procedure History of sleeve gastrectomy Status post biopsy of kidney Family History Father Asthma Mother No problems noted. Brother No problems noted. Brother No problems noted. Sister No problems noted. Social History Housing: Apartment Alcohol intake: never Patient Tobacco Use Status: Never used Tobacco e-Cigarette/Vaping Use: Never Used Second Hand Smoke Exposure: No service: No Current occupational status: unemployed Current occupational exposures/hazards: No Cognitive needs: No Hearing needs: No Vision needs: No Female Reproductive History Menstrual Age of Menarche: 11 Review of Systems Const All systems reviewed & are unremarkable except as noted in HPI and below Physical Exam Vital Signs: BMI result Body Mass Index 41.2 Extrem Other: Left knee skin intact, no erythema or joint effusion. Tenderness along the medial joint line. ROM full with crepitus. Negative steinmans. No ligamentous laxity. NVI. Right knee skin intact, no erythema or joint effusion. Tenderness along the medial joint line. ROM full with crepitus. Negative steinmans. No ligamentous laxity. NVI. Results Reviewed Results Reviewed: X-rays of the right knee obtained in the office and reviewed by me today show severe osteoarthritis bilaterally with joint collapse. Assessment & Plan Assessment & Plan (1) Osteoarthritis of knees, bilateral: Comment: Pain is not controlled. Plans for bariatric surgery in 3 weeks. Weight loss should help reduce pain. Tylenol is ineffective. Hx CKD. Contraindication to NSAIDs. Will monitor for improvement. Code(s): M17.0 - Bilateral primary osteoarthritis of knee Category: Medical Qualifiers: Osteoarthritis type: primary Qualified Code(s): M17.0 - Bilateral primary osteoarthritis of knee Plan: We discussed options centered around continuing with conservative treatment, emphasizing muscle strengthening and pain management through repeated gel injections, given their previous success. Surgical intervention was discussed but deferred, as current measures allow for adequate functional management. There is also concern about her age, being 38 she is a bit young for knee replacements however x-rays do confirm severe arthritis. I confirmed the patient's understanding of our rationale, intervention options, relative risks, and the necessity of maintaining muscular integrity to aid joint preservation, ensuring she is aware of the steps required if surgical intervention becomes indispensable. She will f/u once the gel injections are approved. Orders: Orders XR knee RT 3V Today M17.11 - Unilateral primary osteoarthritis, right knee Coding Level of Care Code Est Pt Level 3 (48417) Complex EM visit Add On G2211 Diagnoses Primary osteoarthritis of both knees M17.0 Osteoarthritis type: primary
--- OUTSIDE RECORDS SUMMARY | 2024-10-09 08:53 | XMS_ITS | Clinical Summary ---
Author Organization [facility] Address [address] [place] [address] [address] [place] [address] Care Team Providers Care Superintendent Local Name Role Phone Unavailable Primary Care Provider [...] patient's age to complete this topic Insurance [facility]
--- OUTSIDE RECORDS SUMMARY | 2024-10-09 08:53 | XMS_ITS | Encounter Summary ---
Author Organization [facility] Address [address] [address] Phone Care Team Providers Care Glassware Verifier Name Role Phone Delores Mancia MD Primary Care Provider [phone] Encounter Details Date Type Department Care Team (Late Contact Info) Description 09/30/2024 Orders Only [facility] [address] [address] Darci Gamble MD [facility] [address] Chronic kidney disease, stage 2 [...] Office Visit [facility] [address] [place] [address] Darci Gamble MD [address] [place] [phone] documented as of this encounter Procedures [...] MD LAB BLOOD ORDERABLES Final Re sult [place] See order comments [place] [address] documented in this encounter Visit Diagnoses Diagnosis Chronic kidney disease, stage 2 (mild) Persistent proteinuria documented in this encounter Care Teams Glassware Verifier Relationship Specialty Start Date End Date Delores Mancia MD [address] [place], [place] PCP - General 07/20/20 documented as of this encounter
--- OUTSIDE RECORDS SUMMARY | 2024-10-09 08:53 | XMS_ITS | Clinical Summary ---
Author Organization [facility] Address [address] [place] [address] Care Team Providers Care Billing Collections Specialist Name Role Phone Delores Mancia MD [...] age to complete this topic Care Teams Billing Collections Specialist Relationship Specialty Start Date End Date Delores Mancia MD [address] [facility] , [address] [facility] Physician Associ D/B/A: [facility] [place] [address] PCP - General Internal Medicine 12/13/23
--- OUTSIDE RECORDS SUMMARY | 2024-10-09 08:53 | XMS_ITS | Clinical Summary ---
Author Organization [facility] Address [address] [place] [address] Care Team Providers Care Electronics Instructor Name Role Phone Delores Mancia MD Primary Care Provider [phone] Allergies Active Allergy Reactions Criticality Noted Date [...] Office Visit [facility] [address] [place] [address] Darci Gamble MD Proteinuria, not otherwise specified (Primary Dx); Chronic kidney disease, stage 2 (mild) 10/03/2024 Orders Only [facility] [address] [address] Darci Gamble MD 09/30/2024 Orders Only [facility] [address] [address] Darci Gamble MD Chronic kidney disease, stage 2 (mild); Persistent proteinuria 09/16/2024 Refill [facility] [address] [place] [address] Darci Gamble MD Persistent proteinuria; Chronic kidney disease stage 1 09/12/2024 9:45 AM EST Telemedicine [facility] [address] [phone] Darci Gamble MD Chronic kidney disease, stage 2 (mild) (Primary Dx); Persistent proteinuria 09/06/2024 Orders Only [facility] [address] [phone] Darci Gamble MD 07/11/2024 Office Communication [facility] [address] [phone] Zoey Cuevas from Last 3 Months Immunizations [...] Visit [facility] the [address] [place] [address] Darci Gamble MD [address] [facility] [address] [place] [phone] Health Maintenance Due Date Last Done Comments [...] order comments [place] [address] * (ABNORMAL) Uric acid (10/03/2024 9:48 AM EDT) Uric Acid 6.4(H) 2.4 - 5.7 mg/dL See order comments Blood (Blood, Venous) 10/03/2024 9:48 AM EDT 10/03/2024 9:48 AM EDT us Darci Gamble MD LAB BLOOD ORDERABLES Final Re sult Performing Organization Address [facility] de Phone Number [place] See order comments [place] [address] * BUN (10/03/2024 9:48 AM EDT) BUN 10 9 - 16 mg/dL See order comments 10/03/2024 9:48 AM EDT 10/03/2024 9:48 AM EDT us Darci Gamble MD LAB BLOOD ORDERABLES Final Re sult Performing Organization Address [facility] de Phone Number [place] See order comments [place] [address] * Calcium (10/03/2024 9:48 AM EDT) Calcium 8.8 8.4 - 10.2 mg/dL See order comments 10/03/2024 9:48 AM EDT 10/03/2024 9:48 AM EDT us Darci Gamble MD LAB BLOOD ORDERABLES Final Re sult Performing Organization Address [facility] de Phone Number [place] See order comments [place] [address] * (ABNORMAL) Electrolyte panel (10/03/2024 9:48 AM [...] ORDERABLES Final Re sult Performing Organization Address City/[facility]/ZIP Co de Phone Number [place] See order comments [place] [address] * (ABNORMAL) Urine Albumin / Creatinine Ratio (09/06/2024 9:21 AM EST) Pathologist [facility] Creatinine, Urine 129.0 mg/dL [facility] Microalbumin Urine Random 147.0(H) 0.0 - 29.0 mg/L [facility] Microalbumin/Cre atinine Ratio 114(H) <30 mg/g creat [facility] 09/06/2024 9:21 AM EST 09/06/2024 10:22 AM EST Darci Gamble MD LAB URINE ORDERABLES Final Re sult Performing Organization Address [facility] de Phone Number [place] [facility] [address] [place] [address] * (ABNORMAL) Urinalysis Reflex Microscopic (09/06/2024 9:21 AM EST) Specific [place] 1.015 1.003 - 1.030 [facility] pH Urine 5.5 5.0 - 8.0 pH [facility] LEUKOCYTES, URINE Small(A) Negative [facility] Nitrite, Urine Negative Negative [facility] Protein, Urine 30(A) <=Trace mg/dL [facility] Glucose Urine Negative Negative mg/dL [facility] Ketones, Urine Negative Negative mg/dL [facility] Urobilinogen Urine 0.2 0.2 - 1.0 mg/dL [facility] Bilirubin Urine Negative Negative [facility] Blood Urine Negative Negative [facility] RBC, Urine 3.4 0 - 4 /HPF [facility] WBC, Urine 40.4(H) 0 - 4 /HPF [facility] Squamous Epithelial, Urine >100(H) 0 - 60 /LPF [facility] Bacteria, Urine Negative Negative /HPF [facility] Hyaline Casts, UA 1.6 0 - 3 /LPF [facility] 09/06/2024 9:21 AM EST 09/06/2024 10:22 AM EST Darci Gamble MD LAB URINE ORDERABLES Final Re sult Performing Organization Address [facility] Co de Phone Number [facility] [address] [place] [address] * Urine Culture (09/06/2024 9:21 AM EST) Pathologist [facility] Culture Result, Urine 50,000-99,000 CFU/mL Mixed urogenital bela, no uropathogens present. Suggest repeat specimen if clinically indicated. [facility] 09/06/2024 9:21 AM EST 09/06/2024 10:21 AM EST Darci Gamble MD LAB URINE ORDERABLES Final Re sult Performing Organization Address City/[facility]/ZIP Co de Phone Number [facility] [address] [place] [address] * (ABNORMAL) Iron Panel (09/06/2024 8:47 AM EST) Iron 46 40 - 150 mcg/dL [facility] TIBC 188(L) 250 - 450 mcg/dL [facility] Iron Saturation (TSat) 24 15 - 50 % [facility] 09/06/2024 8:47 AM EST 09/06/2024 9:07 AM EST us Darci Gamble MD LAB [id number] SOLICITED RESULTS Final Result [place] [facility] [address] [place] [address] * (ABNORMAL) CBC auto differential (09/06/2024 8:47 AM EST) WBC 5.3 4.8 - 10.8 K/mcL [facility] RBC 3.90 3.80 - 4.80 M/[facility] Hgb 11.7 11.5 - 16.0 g/dL [facility] Hematocrit 34.1(L) 35.0 - 47.0 % [facility] MCV 87.9 79.0 - 98.0 FL [facility] MCH 30.2 27.0 - 32.0 pcg [facility] MCHC 34.3 32.0 - 37.0 g/dL [facility] RDW 16.0(H) 11.0 - 15.0 % [facility] Platelets 238 130 - 400 K/[facility] MPV 11.7(H) 7.0 - 11.0 FL [facility] nRBC Count 0.0 <1.0 % [facility] NRBC Absolute 0.00 <0.10 [facility] Bands Relative 70.9 % [facility] Lymphocyte Realative Percent 18.7 % [facility] Monocyte Relative Percent 6.9 % [facility] Eosinophil Relative Percent 2.2 % [facility] Basophils Relative Diff 0.7 % [facility] Immature Granulocytes 0.6 % [facility] Neutrophils Absolute 3.78 1.50 - [...] ORDERABLES Final Re sult Performing Organization Address [facility] Co de Phone Number [facility] [address] [place] [address] * Phosphorus (09/06/2024 8:47 AM EST) Phosphorus 2.7 2.5 - 4.5 mg/dL [facility] 09/06/2024 8:47 AM EST 09/06/2024 9:07 AM EST Darci Gamble MD LAB BLOOD ORDERABLES Final Re sult Performing Organization Address [facility] Co de Phone Number [facility] [address] [place] [address] * (ABNORMAL) PTH, Intact (09/06/2024 8:47 AM EST) PTH 129.2(H) 18.5 - 88.0 pcg/mL [facility] 09/06/2024 8:47 AM EST 09/06/2024 9:07 AM EST Darci Gamble MD LAB BLOOD ORDERABLES Final Re sult Performing Organization Address [facility]/ZIP Co de Phone Number [facility] [address] [place] [address] * Hemoglobin A1c (09/06/2024 8:47 AM EST) Hemoglobin A1C 4.9 <6.5 % [facility] Estimated Average Glucose 94 mg/dL [facility] 09/06/2024 8:47 AM EST 09/06/2024 9:08 AM EST Darci Gamble MD LAB BLOOD ORDERABLES Final Re sult Performing Organization Address [facility] Co de Phone Number [facility] [address] [place] [address] * Ferritin (09/06/2024 8:47 AM EST) Ferritin 17 8 - 252 ng/mL [facility] 09/06/2024 8:47 AM EST 09/06/2024 9:07 AM EST Darci Gamble MD LAB BLOOD ORDERABLES Final Re sult Performing Organization Address [facility] Co de Phone Number [facility] [address] [place] [address] from Last 3 Months Insurance [facility] [employer] Care Teams Electronics Instructor Relationship Specialty Start Date End Date Delores Mancia MD [address] [place], [place] PCP - General 07/20/20
--- OUTSIDE RECORDS SUMMARY | 2024-10-09 08:53 | XMS_ITS | Encounter Summary ---
Author Organization [facility] Address [address] [place] [address] Care Team Providers Care Surgical Garment Fitter Name Role Phone Delores Silva MD Primary Care Provider [phone] Encounter Details Date Type Department Care Team [...] AM EDT Office Visit Bariatric Surgery - [place] [address] [place] [address] Ana Lilia Bruce PA [address] [place] [address] documented as of this encounter Visit Diagnoses Not on filedocumented in this encounter Care Teams Surgical Garment Fitter Relationship Specialty Start Date End Date Delores Silva MD [address] [facility] , [address] [facility] Physician Associ D/B/A: [facility] [place] PCP - General Internal Medicine 02/09/22 documented as of this encounter
--- OUTSIDE RECORDS SUMMARY | 2024-10-09 08:54 | XMS_ITS | Encounter Summary ---
Author Organization [facility] Address [address] [address] Phone Care Team Providers Care Bagman/Woman Name Role Phone Delores Mancia MD Primary Care Provider [phone] Encounter Details Date Type Department Care Team (Late st Contact Info) Description 10/07/2024 2:00 PM EDT Office Visit [facility] [address] [place] [address] Darci Gamble MD [address] [address] Proteinuria, not otherwise specified (Primary [...] Salted Snacks such as Crackers Potato chips [place] chips Pretzels Tortilla chips Nuts Popcorn [place] seeds Homemade or low- sodium sauces and [...] Foods such as: TV Dinners Canned raviolis [place] [employer]aroni [employer] Cheese Spaghetti Frozen prepared foods [...] are 1000 milligrams (mg) in 1gram. For [id number], if your diet prescription is 2 grams [...] Basil: Use with beef, pork, most vegetables. [facility]: Use with beef, pork, most vegetables. [place]: Use with beef, pork, green beans, cauliflower, [...] doctor or dietitian beforeusing and salt substitute. [place] and create your own seasoning containing those spices that you like. If you would like to become a volunteer and find out more about what's happening where you live, contact your local [facility] Affiliate. Blood pressure monitoring education: Monitor [...] Visit [facility] the [address] [place] [address] Darci Gamble MD [address] [facility] [address] [place] [phone] Scheduled Orders Name Type Priority Associated Diagnoses [...] (mild) documented in this encounter Care Teams Bagman/Woman Relationship Specialty Start Date End Date Delores Mancia MD [address] [place] [address] DRIVE [address] [place], [place] PCP - General 07/20/20 documented as of this encounter
--- OUTSIDE RECORDS SUMMARY | 2024-10-09 08:54 | XMS_ITS | Clinical Summary ---
Author Organization [facility] Address [address] [place] [address] Phone Care Team Providers Care Reel Worker Name Role Phone Delores Silva MD Primary Care Provider [phone] Allergies Active Allergy Reactions Criticality Noted Date [...] Type Department Care Team Description 09/30/2024 Telephone [facility] Infusion Center [address] [facility] 2nd [place] [phone] Sharri Shipman RN 09/23/2024 11:30 AM EDT Office Visit Bariatric Surgery - [place] [address] [facility] [address] [place] [phone] Ana Lilia Bruce PA Class 3 severe obesity due to excess calories with serious comorbidity and body mass index (BMI) of 40.0 to 44.9 in adult (CMS/HCC) (Primary Dx); Bariatric surgery status 09/09/2024 10:00 AM EST Office Visit [facility] Hematology Oncology [address] [place] [phone] Reji Hernandez MD Anemia, unspecified type (Primary Dx); Bariatric surgery status 09/06/2024 7:50 AM EST - 09/06/2024 11:59 PM EST Hospital Encounter [facility] Ultrasound [address] [place] [phone] Bilateral edema of lower extremity Discharge Disposition: Home or Self Care 09/05/2024 11:15 AM EST Office Visit Bariatric Surgery - [address] [phone] Ana Lilia Bruce PA Class 3 severe obesity due to excess calories with serious comorbidity and body mass index (BMI) of 40.0 to 44.9 in adult (CMS/[facility]) (Primary Dx); Bilateral edema of lower extremity; Bariatric surgery status 09/05/2024 Telephone Bariatric Surgery - [address] [phone] Ana Lilia Bruce PA 09/02/2024 1:28 PM EST - 09/02/2024 11:59 PM EST Hospital Encounter [facility] Infusion Center [address] [facility] 2nd [place] [phone] Reji Hernandez MD Anemia due to vitamin B12 deficiency, unspecified B12 deficiency type (Primary Dx) Discharge Disposition: Home or Self Care 08/26/2024 12:30 PM EST Nutrition Bariatric Surgery [address] [phone] [address] Class 3 severe obesity with body mass index (BMI) of 40.0 to 44.9 in adult, unspecified obesity type, unspecified whether serious comorbidity present (CMS/HCC) (Primary Dx) 08/19/2024 3:45 PM EST Office Visit Bariatric Surgery [address] [phone] Ana Lilia Bruce PA Class 3 severe obesity due to excess calories with serious comorbidity and body mass index (BMI) of 40.0 to 44.9 in adult (CMS/HCC) (Primary Dx); Bariatric surgery status 08/08/2024 11:15 AM EST Office Visit Bariatric Surgery - [address] [phone] Ana Lilia Bruce PA Class 3 severe obesity due to excess calories with serious comorbidity and body mass index (BMI) of 40.0 to 44.9 in adult ([facility]) (Primary Dx); Bariatric surgery status 08/05/2024 12:44 PM EST - 08/05/2024 11:59 PM EST Hospital Encounter [facility] [address] [place] [phone] Reji Hernandez MD Anemia due to vitamin B12 deficiency, unspecified B12 deficiency type (Primary Dx) Discharge Disposition: Home or Self Care 07/31/2024 Telephone Bariatric Surgery - [address] [phone] Loan Javier, ANURADHA 07/30/2024 Telephone Bariatric Surgery [address] [phone] Loan Javier, ANURADHA 07/26/2024 7:41 AM EST Anesthesia Event [facility] Main OR [address] [place] [phone] Tameka Gibson MD 07/26/2024 7:30 AM EST - 07/26/2024 10:30 AM EST Surgery [facility] Main OR [address] [place] [phone] Anaid Ontiveros MD [facility] CONVERSION OF SLEEVE TO BYPASS [[id number] (CPT??)] 07/26/2024 6:09 AM EST - 07/28/2024 2:38 PM EST Hospital Encounter [facility] Medical Surgical Unit [address] [place] [phone] Anaid Ontiveros MD H/O gastric sleeve (Primary Dx) Discharge Disposition: Home or Self Care 07/24/2024 Telephone Bariatric Surgery - [address] [phone] Loan Javier, ANURADHA 07/16/2024 11:45 AM EST Consult Bariatric Surgery - [address] [place] [address] Ana Lilia Bruce PA Class 3 severe obesity due to excess calories with serious comorbidity and body mass index (BMI) of 45.0 to 49.9 in adult ([facility]) (Primary Dx); Gastroesophageal reflux disease, unspecified whether [...] Arthritis Joint pain Lupus (systemic lupus erythematosus) ([facility]) Social History Tobacco Use Types Packs/Day Years [...] EDT Office Visit Bariatric Surgery - [place] [address] [place] [phone] Ana Lilia Bruce PA [address] [place] [address] Health Maintenance Due Date Last Done Comments [...] this topic Medical Devices Implanted Type Area Recyclable Products Sorter Device Identifier Shelf Expiration Date Model / [...] albuminuria creatinine ratio less than 30 mg/g ([facility]/HCC) Proteinuria Anemia, unspecified VITAMIN B1 Routine 09/06/2024 [...] ENDOTRACHEAL(NO CHARGE) Routine 07/26/2024 7:54 AM EST [place] LAP SURG GASTRIC REST PROC W GSTR [...] reflex microscopic (09/06/2024 9:21 AM EST) Specific [place] Urine 1.015 1.003 - 1.030 LAB URINALYSIS - AUTOMATED METHOD 09/06/2024 10:35 AM [facility] pH, Urine 5.5 5.0 - 8.0 pH LAB URINALYSIS - AUTOMATED METHOD 09/06/2024 10:35 AM [facility] Leukocytes, Urine Small(A) Negative LAB URINALYSIS - AUTOMATED METHOD 09/06/2024 10:35 AM [facility] Nitrite, Urine Negative Negative LAB URINALYSIS - AUTOMATED METHOD 09/06/2024 10:35 AM [facility] Protein, Urine 30(A) <=Trace mg/dL LAB URINALYSIS - AUTOMATED METHOD 09/06/2024 10:35 AM [facility] Glucose, Urine Negative Negative mg/dL LAB URINALYSIS - AUTOMATED METHOD 09/06/2024 10:35 AM [facility] Ketones, Urine Negative Negative mg/dL LAB URINALYSIS - AUTOMATED METHOD 09/06/2024 10:35 AM [facility] Urobilinogen, Urine 0.2 0.2 - 1.0 mg/dL LAB URINALYSIS - AUTOMATED METHOD 09/06/2024 10:35 AM [facility] Bilirubin, Urine Negative Negative LAB URINALYSIS - AUTOMATED METHOD 09/06/2024 10:35 AM [facility] Blood, Urine Negative Negative LAB URINALYSIS - AUTOMATED METHOD 09/06/2024 10:35 AM [facility] RBC, Urine 3.4 0 - 4 /HPF LAB URINALYSIS - AUTOMATED METHOD 09/06/2024 10:35 AM [facility] WBC, Urine 40.4(H) 0 - 4 /HPF LAB URINALYSIS - AUTOMATED METHOD 09/06/2024 10:35 AM [facility] Squamous Epithelial, Urine >100(H) 0 - 60 /LPF LAB URINALYSIS - AUTOMATED METHOD 09/06/2024 10:35 AM [facility] Bacteria, Urine Negative Negative /HPF LAB URINALYSIS - AUTOMATED METHOD 09/06/2024 10:35 AM [facility] Hyaline Casts, Urine 1.6 0 - 3 /LPF LAB URINALYSIS - AUTOMATED METHOD 09/06/2024 10:35 AM [facility] Urine Urine specimen obtained by clean catch procedure / Unknown Non-blood Collection / Unknown 09/06/2024 9:21 AM EST 09/06/2024 10:22 AM EST Darci Gamble MD LAB URINE ORDERABLES Final Re sult [facility] [address] [place] [address], [place] [phone] * (ABNORMAL) Microalbumin creatinine urine ratio (09/06/2024 9:21 AM EST) Creatinine, Urine 129.0 mg/dL LAB CHEMISTRY METHOD 09/06/2024 12:09 PM EST [facility] Microalb, Ur 147.0(H) 0.0 - 29.0 mg/L LAB CHEMISTRY METHOD 09/06/2024 12:09 PM EST [facility] Microalb/Crea t Ratio 114(H) <30 mg/g creat LAB CHEMISTRY METHOD 09/06/2024 12:09 PM EST [facility] Urine Urine specimen obtained by clean catch procedure / Unknown Non-blood Collection / Unknown 09/06/2024 9:21 AM EST 09/06/2024 10:22 AM EST Darci Gamble MD LAB URINE ORDERABLES Final Re sult Performing Organization Address [facility] de Phone Number [facility] [address] [place] [address], [place] [phone] * , urine (09/06/2024 9:21 AM EST) Preg Test, Ur Negative Negative 09/06/2024 10:30 AM EST [facility] Urine Urine specimen obtained by clean catch procedure / Unknown Non-blood Collection / Unknown 09/06/2024 9:21 AM EST 09/06/2024 10:22 AM EST Ana Lilia WESTON LAB URINE ORDERABLES Final R esult Performing Organization Address [facility]/ZIP Co de Phone Number [facility] [address] [place] [address], [place] [phone] * Culture urine (09/06/2024 9:21 AM EST) Only the most recent of2 resultswithin the time period is included. Culture, Urine 50,000-99,000 CFU/mL Mixed urogenital bela, no uropathogens present. Suggest repeat specimen if clinically indicated. 09/08/2024 12:56 PM EST [facility] Urine Urine specimen obtained by clean catch procedure / Unknown Non-blood Collection / Unknown 09/06/2024 9:21 AM EST 09/06/2024 10:21 AM EST Darci Gamble MD LAB MICROBIOLOGY - GENERAL OR DERABLES Final Result [facility] [address] [place] [address], * (ABNORMAL) CBC auto differential (09/06/2024 8:47 AM EST) Only the most recent of5 resultswithin the time period is included. Pathologist [facility] WBC 5.3 4.8 - 10.8 K/mcL LAB HEMETOLOGY METHOD 09/06/2024 9:59 AM [facility] RBC 3.90 3.80 - 4.80 M/mcL LAB HEMETOLOGY METHOD 09/06/2024 9:59 AM [facility] Hemoglobin 11.7 11.5 - 16.0 g/dL LAB HEMETOLOGY METHOD 09/06/2024 9:59 AM [facility] Hematocrit 34.1(L) 35.0 - 47.0 % LAB HEMETOLOGY METHOD 09/06/2024 9:59 AM [facility] MCV 87.9 79.0 - 98.0 FL LAB HEMETOLOGY METHOD 09/06/2024 9:59 AM [facility] MCH 30.2 27.0 - 32.0 pcg LAB HEMETOLOGY METHOD 09/06/2024 9:59 AM [facility] MCHC 34.3 32.0 - 37.0 g/dL LAB HEMETOLOGY METHOD 09/06/2024 9:59 AM [facility] RDW 16.0(H) 11.0 - 15.0 % LAB HEMETOLOGY METHOD 09/06/2024 9:59 AM [facility] Platelets 238 130 - 400 K/mcL LAB HEMETOLOGY METHOD 09/06/2024 9:59 AM [facility] MPV 11.7(H) 7.0 - 11.0 FL LAB HEMETOLOGY METHOD 09/06/2024 9:59 AM [facility] NRBC 0.0 <1.0 % LAB HEMETOLOGY METHOD 09/06/2024 9:59 AM [facility] NRBC Absolute 0.00 <0.10 K/mcL LAB HEMETOLOGY METHOD 09/06/2024 9:59 AM [facility] Neutrophils Relative 70.9 % LAB HEMETOLOGY METHOD 09/06/2024 9:59 AM [facility] Lymphocytes Relative 18.7 % LAB HEMETOLOGY METHOD 09/06/2024 9:59 AM [facility] Monocytes Relative 6.9 % LAB HEMETOLOGY METHOD 09/06/2024 9:59 AM [facility] Eosinophils Relative 2.2 % LAB HEMETOLOGY METHOD 09/06/2024 9:59 AM [facility] Basophils Relative 0.7 % LAB HEMETOLOGY METHOD 09/06/2024 9:59 AM [facility] Immature Granulocytes Relative 0.6 % LAB HEMETOLOGY METHOD 09/06/2024 9:59 AM [facility] Neutrophils Absolute 3.78 1.50 - 7.00 K/mcL LAB HEMETOLOGY METHOD 09/06/2024 9:59 AM [facility] Lymphocytes Absolute 1.00 1.00 - 5.00 K/mcL LAB HEMETOLOGY METHOD 09/06/2024 9:59 AM EST [facility] Monocytes Absolute 0.37 0.20 - 1.00 K/mcL LAB HEMETOLOGY METHOD 09/06/2024 9:59 AM [facility] Eosinophils Absolute 0.12 0.00 - 0.50 K/[facility] LAB HEMETOLOGY METHOD 09/06/2024 9:59 AM EST [facility] Basophils Absolute 0.04 0.00 - 0.20 K/[facility] LAB HEMETOLOGY METHOD 09/06/2024 9:59 AM [facility] Immature Granulocytes Absolute 0.03 0.00 - 0.03 K/mcL LAB HEMETOLOGY METHOD 09/06/2024 9:59 AM [facility] Blood Venous blood specimen / Unknown Venipuncture / Unknown 09/06/2024 8:47 AM EST 09/06/2024 9:08 AM EST Darci Gamble MD LAB BLOOD ORDERABLES Final Re sult [facility] [address] [place] [address], * (ABNORMAL) Iron and TIBC (09/06/2024 8:47 AM EST) Only the most recent of2 resultswithin the time period is included. Iron 46 40 - 150 mcg/dL LAB CHEMISTRY METHOD 09/06/2024 10:20 AM [facility] TIBC 188(L) 250 - 450 mcg/dL LAB CHEMISTRY METHOD 09/06/2024 10:20 AM [facility] Iron Saturation 24 15 - 50 % LAB CHEMISTRY METHOD 09/06/2024 10:20 AM [facility] Blood Venous blood specimen / Unknown Venipuncture / Unknown 09/06/2024 8:47 AM EST 09/06/2024 9:07 AM EST Darci Gamble MD LAB BLOOD ORDERABLES Final Re sult Performing Organization Address City/[facility]/ZIP Co de Phone Number [facility] ([facility] [address] [place] [address], * Zinc (09/06/2024 8:47 AM EST) Zinc 68 60 - 130 ug/dL 09/09/2024 2:57 PM EST [facility] Comment: Elevated results may be due to sample collected in a non-certified trace element-free tube. This test was developed and the performance characteristics determined by [facility]. It has not been cleared or approved by the FDA. The laboratory is regulated under CLIA as qualified to perform high-complexity testing. This test is used for patient testing purposes. It should not be regarded as investigational or for research. Test performed at [facility], [address] [place], [place] [address] ? [phone] Ann-Marie Kerr MD, PhD - Sawdust Machine Operator Blood Venous blood specimen / Unknown Venipuncture / Unknown 09/06/2024 8:47 AM EST 09/06/2024 9:08 AM EST Ana Lilia WESTON LAB BLOOD ORDERABLES Final R esult Performing Organization Address City/[facility]/ZIP Co de Phone Number [facility] [address] [place] [address] * Selenium serum (09/06/2024 8:47 AM EST) Selenium 109 63 - 160 mcg/L 09/11/2024 7:46 PM EST [facility] Comment: This test was developed and its analytical performance characteristics have been determined by [facility] [employer] [place], [place]. It has not been cleared or approved by the U.S. Food and Drug Administration. This assay has been validated pursuant to the CLIA regulations and is used for clinical purposes. Test Performed by [facility] [employer], [facility], [address] [place], [place] Edgard Dejesus M.D., Ph.D., Director of Laboratories , CLIA [id number] Blood Venous blood specimen / Unknown Venipuncture / Unknown 09/06/2024 8:47 AM EST 09/06/2024 9:08 AM EST Ana Lilia WESTON LAB BLOOD ORDERABLES Final R esult Performing Organization Address City/[facility]/ZIP Co de Phone Number [facility] [address] [place], [place] [id number] * Vitamin D 25 hydroxy (09/06/2024 8:47 AM EST) Pathologist [facility] Vit D, 25-Hydroxy 36.4 30.0 - 80.0 ng/mL LAB CHEMISTRY METHOD 09/06/2024 12:07 PM EST [facility] Blood Venous blood specimen / Unknown Venipuncture / Unknown 09/06/2024 8:47 AM EST 09/06/2024 9:07 AM EST Ana Lilia WESTON LAB BLOOD ORDERABLES Final R esult Performing Organization Address City/[facility]/ZIP Co de Phone Number [facility] [address] [place] [address], [place] [phone] * Vitamin B1 (09/06/2024 8:47 AM EST) Pathologist [facility] Vitamin B1 Whole Blood 43 38 - 122 ug/L 09/11/2024 9:51 AM EST [facility] Comment: This test was developed and the performance characteristics determined by [facility]. It has not been cleared or approved by the FDA. The laboratory is regulated under CLIA as qualified to perform high-complexity testing. This test is used for patient testing purposes. It should not be regarded as investigational or for research. Test performed at [facility], [address] [place], [place] ??[address] ? [phone] Ann-Marie Kerr MD, PhD - Sawdust Machine Operator Blood Venous blood specimen / Unknown Venipuncture / Unknown 09/06/2024 8:47 AM EST 09/06/2024 9:08 AM EST Ana Lilia WESTON LAB BLOOD ORDERABLES Final R esult Performing Organization Address City/[facility]/ZIP Co de Phone Number [facility] [address] [place] [address] * (ABNORMAL) Vitamin B6 (09/06/2024 8:47 AM EST) Vitamin B6 (Pyridoxine) Level 2(L) 5 - 50 ug/L 09/10/2024 11:37 AM EST [facility] Comment: This test was developed and the performance characteristics determined by [facility]. It has not been cleared or approved by the FDA. The laboratory is regulated under CLIA as qualified to perform high-complexity testing. This test is used for patient testing purposes. It should not be regarded as investigational or for research. Test performed at [facility], [address] [place], [place] ??[address] ? [phone] Ann-Marie Kerr MD, PhD - Sawdust Machine Operator Blood Venous blood specimen / Unknown Venipuncture / Unknown 09/06/2024 8:47 AM EST 09/06/2024 9:16 AM EST us Ana Lilia WESTON LAB BLOOD ORDERABLES Final R esult [facility] [address] [place] [address] * Prealbumin (09/06/2024 8:47 AM EST) Prealbumin 22 18 - 45 mg/dL LAB CHEMISTRY METHOD 09/06/2024 11:20 AM EST [facility] Blood Venous blood specimen / Unknown Venipuncture / Unknown 09/06/2024 8:47 AM EST 09/06/2024 9:07 AM EST Ana Lilia WESTON LAB BLOOD ORDERABLES Final R esult Performing Organization Address [facility]/ZIP Co de Phone Number [facility] [address] [place] [address], [place] [phone] * Phosphorus (09/06/2024 8:47 AM EST) Only the most recent of2 resultswithin the time period is included. Phosphorus 2.7 2.5 - 4.5 mg/dL LAB CHEMISTRY METHOD 09/06/2024 11:20 AM EST [facility] Blood Venous blood specimen / Unknown Venipuncture / Unknown 09/06/2024 8:47 AM EST 09/06/2024 9:07 AM EST Darci Gamble MD LAB BLOOD ORDERABLES Final Re sult Performing Organization Address [facility] Co de Phone Number [facility] [address] [place] [address], * (ABNORMAL) Parathyroid hormone intact (09/06/2024 8:47 AM EST) PTH 129.2(H) 18.5 - 88.0 pcg/mL LAB CHEMISTRY METHOD 09/06/2024 12:07 PM EST [facility] Blood Venous blood specimen / Unknown Venipuncture / Unknown 09/06/2024 8:47 AM EST 09/06/2024 9:07 AM EST us Darci Gamble MD LAB BLOOD ORDERABLES Final Re sult Performing Organization Address City/[facility]/ZIP Co de Phone Number [facility] [address] [place] [address], [place] [phone] * Hemoglobin A1c (09/06/2024 8:47 AM EST) [facility] Hemoglobin A1C 4.9 <6.5 % LAB CHEMISTRY METHOD 09/09/2024 9:30 PM EST [facility] Mean Bld Glu Estim. 94 mg/dL LAB CHEMISTRY METHOD 09/09/2024 9:30 PM EST [facility] Blood Venous blood specimen / Unknown Venipuncture / Unknown 09/06/2024 8:47 AM EST 09/06/2024 9:08 AM EST Darci Gamble MD LAB BLOOD ORDERABLES Final Re sult [facility] [address] [place] [address], [place] [phone] * Folate (09/06/2024 8:47 AM EST) [facility] Folate 5.4 2.8 - 17.0 ng/ml LAB CHEMISTRY METHOD 09/06/2024 11:20 AM EST [facility] Blood Venous blood specimen / Unknown Venipuncture / Unknown 09/06/2024 8:47 AM EST 09/06/2024 9:07 AM EST Ana Lilia WESTON LAB BLOOD ORDERABLES Final R esult [facility] [address] [place] [address], [place] [phone] * Ferritin (09/06/2024 8:47 AM EST) Only the most recent of2 resultswithin the time period is included. [facility] Ferritin 17 8 - 252 ng/mL LAB CHEMISTRY METHOD 09/06/2024 11:20 AM EST [facility] Blood Venous blood specimen / Unknown Venipuncture / Unknown 09/06/2024 8:47 AM EST 09/06/2024 9:07 AM EST us Darci Gamble MD LAB BLOOD ORDERABLES Final Re sult [facility] [address] [place] [address], * (ABNORMAL) Comprehensive metabolic panel (09/06/2024 8:47 AM EST) Sodium 141 133 - 145 mmol/L LAB CHEMISTRY METHOD 09/06/2024 11:20 AM [facility] Potassium 3.8 3.5 - 5.5 mmol/L LAB CHEMISTRY METHOD 09/06/2024 11:20 AM [facility] Chloride 110 96 - 110 mmol/L LAB CHEMISTRY METHOD 09/06/2024 11:20 AM [facility] CO2 26 21 - 32 mmol/L LAB CHEMISTRY METHOD 09/06/2024 11:20 AM [facility] Anion Gap 5 3 - 11 LAB CHEMISTRY METHOD 09/06/2024 11:20 AM [facility] Glucose 82 70 - 100 mg/dL LAB CHEMISTRY METHOD 09/06/2024 11:20 AM [facility] BUN 12 5 - 25 mg/dL LAB CHEMISTRY METHOD 09/06/2024 11:20 AM [facility] Creatinine 1.05 0.50 - 1.10 mg/dL LAB CHEMISTRY METHOD 09/06/2024 11:20 AM [facility] eGFR 69 >=60 mL/min/1. 73m2 LAB CHEMISTRY METHOD 09/06/2024 11:20 AM [facility] Comment:Calculation based on the??Chronic Kidney Disease Epidemiology Collaboration (CKD-EPI) equation refit??without adjustment for race. BUN/Creatinine Ratio 11.4 LAB CHEMISTRY METHOD 09/06/2024 11:20 AM [facility] Calcium 8.8 8.5 - 10.5 mg/dL LAB CHEMISTRY METHOD 09/06/2024 11:20 AM [facility] AST (SGOT) 14 10 - 42 unit/L LAB CHEMISTRY METHOD 09/06/2024 11:20 AM [facility] ALT (SGPT) 22 10 - 60 unit/L LAB CHEMISTRY METHOD 09/06/2024 11:20 AM [facility] Alkaline Phosphatase 95 42 - 121 unit/L LAB CHEMISTRY METHOD 09/06/2024 11:20 AM [facility] Total Protein 5.7(L) 6.0 - 8.0 g/dL LAB CHEMISTRY METHOD 09/06/2024 11:20 AM [facility] Albumin 2.8(L) 3.2 - 5.0 g/dL LAB CHEMISTRY METHOD 09/06/2024 11:20 AM [facility] Total Bilirubin 0.4 0.0 - 1.4 mg/dL LAB CHEMISTRY METHOD 09/06/2024 11:20 AM [facility] Blood Venous blood specimen / Unknown Venipuncture / Unknown 09/06/2024 8:47 AM EST 09/06/2024 9:07 AM EST Ana Lilia WESTON LAB BLOOD ORDERABLES Final R esult [facility] [address] [place] [address], * Vascular US duplex lower extremity venous [...] Signed Date: 09/06/2024 09:02 ET Workstation ID: [id number] Transcribed By: Self Edit Transcribed Date: 09/06/2024 [...] Signed Date: 09/06/2024 09:02 ET Workstation ID: [id number] Transcribed By: Self Edit Transcribed Date: 09/06/2024 [...] the past week. Test performed at [facility], [address] , [place], [place] ??[address] ? [phone] Ann-Marie Kerr MD, PhD - Sawdust Machine Operator Blood Venous blood specimen / Unknown Venipuncture / Unknown 09/02/2024 1:23 PM EST 09/02/2024 1:37 PM EST Reji Hernandez MD LAB BLOOD ORDERABLES Final R esult [facility] [address] [place] [address] * (ABNORMAL) Vitamin B12 (09/02/2024 1:23 PM EST) Vitamin B-12 911(H) 250 - 900 pcg/mL LAB CHEMISTRY METHOD 09/02/2024 2:32 PM EST [facility] Blood Venous blood specimen / Unknown Venipuncture / Unknown 09/02/2024 1:23 PM EST 09/02/2024 1:37 PM EST Reji Hernandez MD LAB BLOOD ORDERABLES Final R esult [facility] [address] [place] [address], [place] [phone] * (ABNORMAL) Magnesium (07/28/2024 8:49 AM EST) Only the most recent of2 resultswithin the time period is included. Magnesium 1.8(L) 1.9 - 2.6 mg/dL LAB CHEMISTRY METHOD 07/28/2024 9:52 AM EST [facility] Blood Venous blood specimen / Unknown Venipuncture / Unknown 07/28/2024 8:49 AM EST 07/28/2024 9:04 AM EST us Cassandra WESTON LAB BLOOD ORDERABLES Final Resu lt [facility] [address] [place] [address], * (ABNORMAL) Basic metabolic panel (07/28/2024 8:49 AM EST) Only the most recent of3 resultswithin the time period is included. Sodium 141 133 - 145 mmol/L LAB CHEMISTRY METHOD 07/28/2024 9:52 AM [facility] Potassium 4.4 3.5 - 5.5 mmol/L LAB CHEMISTRY METHOD 07/28/2024 9:52 AM [facility] Chloride 112(H) 96 - 110 mmol/L LAB CHEMISTRY METHOD 07/28/2024 9:52 AM [facility] CO2 21 21 - 32 mmol/L LAB CHEMISTRY METHOD 07/28/2024 9:52 AM [facility] Anion Gap 8 3 - 11 LAB CHEMISTRY METHOD 07/28/2024 9:52 AM [facility] Glucose 76 70 - 100 mg/dL LAB CHEMISTRY METHOD 07/28/2024 9:52 AM [facility] BUN 20 5 - 25 mg/dL LAB CHEMISTRY METHOD 07/28/2024 9:52 AM [facility] Creatinine 1.30(H) 0.50 - 1.10 mg/dL LAB CHEMISTRY METHOD 07/28/2024 9:52 AM [facility] eGFR 53(L) >=60 mL/min/1. 73m2 LAB CHEMISTRY METHOD 07/28/2024 9:52 AM [facility] Comment:Calculation based on the??Chronic Kidney Disease Epidemiology Collaboration (CKD-EPI) equation refit??without adjustment for race. BUN/Creatinine Ratio 15.4 LAB CHEMISTRY METHOD 07/28/2024 9:52 AM [facility] Calcium 8.2(L) 8.5 - 10.5 mg/dL LAB CHEMISTRY METHOD 07/28/2024 9:52 AM EST [facility] Blood Venous blood specimen / Unknown Venipuncture / Unknown 07/28/2024 8:49 AM EST 07/28/2024 9:04 AM EST us Cassandra WESTON LAB BLOOD ORDERABLES Final Resu lt [facility] ([facility]) [facility] [address] [place] [address], [place] [phone] * TH AN ENDOTRACHEAL(NO CHARGE) (07/26/2024 7:54 AM EST) Radha Joyner CRNA - 07/26/2024 7:54 AM EST Radha Lacey CRNA ? 07/26/2024 ??7:55 AM General Information and Staff Patient location during procedure: [place] Anesthesiologist: Tameka Gibson MD Resident/FIRE ASSISTANT: Radha Lacey CRNA Performed: resident/FIRE ASSISTANT/CAA Performed by: Radha Lacey CRNA Authorized by: [...] and culture (07/15/2024 11:38 AM EST) Specific [place] Urine 1.013 1.003 - 1.030 LAB URINALYSIS - AUTOMATED METHOD 07/15/2024 12:27 PM [facility] pH, Urine 5.0 5.0 - 8.0 pH LAB URINALYSIS - AUTOMATED METHOD 07/15/2024 12:27 PM [facility] Leukocytes, Urine Small(A) Negative LAB URINALYSIS - AUTOMATED METHOD 07/15/2024 12:27 PM [facility] Nitrite, Urine Negative Negative LAB URINALYSIS - AUTOMATED METHOD 07/15/2024 12:27 PM [facility] Protein, Urine 100(A) <=Trace mg/dL LAB URINALYSIS - AUTOMATED METHOD 07/15/2024 12:27 PM [facility] Glucose, Urine Negative Negative mg/dL LAB URINALYSIS - AUTOMATED METHOD 07/15/2024 12:27 PM [facility] Ketones, Urine Negative Negative mg/dL LAB URINALYSIS - AUTOMATED METHOD 07/15/2024 12:27 PM [facility] Urobilinogen, Urine 0.2 0.2 - 1.0 mg/dL LAB URINALYSIS - AUTOMATED METHOD 07/15/2024 12:27 PM [facility] Bilirubin, Urine Negative Negative LAB URINALYSIS - AUTOMATED METHOD 07/15/2024 12:27 PM [facility] Blood, Urine Trace(A) Negative LAB URINALYSIS - AUTOMATED METHOD 07/15/2024 12:27 PM [facility] RBC, Urine 2.8 0 - 4 /HPF LAB URINALYSIS - AUTOMATED METHOD 07/15/2024 12:27 PM [facility] WBC, Urine 40.5(H) 0 - 4 /HPF LAB URINALYSIS - AUTOMATED METHOD 07/15/2024 12:27 PM [facility] Squamous Epithelial, Urine 21 0 - 60 /LPF LAB URINALYSIS - AUTOMATED METHOD 07/15/2024 12:27 PM [facility] Bacteria, Urine Negative Negative /HPF LAB URINALYSIS - AUTOMATED METHOD 07/15/2024 12:27 PM [facility] Hyaline Casts, Urine 1.2 0 - 3 /LPF LAB URINALYSIS - AUTOMATED METHOD 07/15/2024 12:27 PM [facility] Urine Urine specimen obtained by clean catch procedure / Unknown Non-blood Collection / Unknown 07/15/2024 11:38 AM EST 07/15/2024 12:14 PM EST Ana Lilia [facility]ON LAB URINE ORDERABLES Final R esult Performing Organization Address City/[facility]/ZIP Co de Phone Number [facility] [address] [place] [address], [place] [phone] * Dorsey urine culture tube (07/15/2024 11:38 AM EST) Extra Tube Hold for add-ons. 07/15/2024 2:01 PM [facility] Comment:Auto resulted. Urine Urine specimen obtained by clean catch procedure / Unknown Non-blood Collection / Unknown 07/15/2024 11:38 AM EST 07/15/2024 12:14 PM EST Ana Lilia WESOTN LAB URINE ORDERABLES Final R esult Performing Organization Address City/[facility]/ZIP Co de Phone Number [facility] [address] [place] [address], [place] [phone] * Prothrombin time with INR (07/15/2024 11:38 AM EST) Protime 12.3 10.6 - 13.9 sec LAB COAGULATION METHOD 07/15/2024 12:26 PM EST [facility] INR 1.0 LAB COAGULATION METHOD 07/15/2024 12:26 PM EST [facility] Blood Venous blood specimen / Unknown Venipuncture / Unknown 07/15/2024 11:38 AM EST 07/15/2024 12:14 PM EST us Ana Lilia [facility]ON LAB BLOOD ORDERABLES Final R esult Performing Organization Address [facility]/ZIP Co de Phone Number [facility] [address] [place] [address], [place] [phone] * Type and screen (07/15/2024 11:38 AM EST) [facility] ABO Group A 07/15/2024 2:07 PM EST [facility] Rh Type Positive 07/15/2024 2:07 PM EST [facility] Antibody Screen Negative 07/15/2024 2:07 PM EST [facility] Blood Venous blood specimen / Unknown Venipuncture / Unknown 07/15/2024 11:38 AM EST 07/15/2024 12:14 PM EST us Ana Lilia [facility] LAB BLOOD BANK TEST ORDERABL ES Final Result Performing Organization Address [facility]/ZIP Co de Phone Number [facility] [address] [place] [address], [place] [phone] * ECG 12 lead (07/15/2024 11:30 AM EST) Ventricular Rate ECG 52 BPM GEMUSE Atrial Rate 52 BPM GEMUSE P-R Interval 136 ms GEMUSE QRS Duration 70 ms GEMUSE Q-T Interval 398 ms GEMUSE QTc 370 ms GEMUSE P Wave [place] 23 degrees GEMUSE R [place] 6 degrees GEMUSE T [place] 23 degrees GEMUSE ECG Interpretation Sinus bradycardia [...] Most Recently Relevant to Health Maintenance Insurance [facility] Care Teams Reel Worker Relationship Specialty Start Date End Date Delores Silva MD [address] [place] [address] , [facility] [address] [facility] Physician Associ D/B/A: [facility] [place], [place] PCP - General Internal Medicine 02/09/22
== END 2024-10-09 09:18 | disposition home or self-care (01) ==
LOC: HO.HOS 08:32
PROVIDERS: PCP Internal Medicine; Visit Provider Physician Assistant
DX: M17.0 Bilateral primary osteoarthritis of knee (principal)
CPT/HCPCS: 99213; G2211

== ENCOUNTER → 2024-10-09 08:44 | Outpatient (BNV) | payer OTHER, SELFPAY | PROVIDERS: Visit Provider Radiology Diagnostic Radiology | DX: M17.11 Unilateral primary osteoarthritis, right knee (principal) | CPT/HCPCS: 73562 ==

== ENCOUNTER 2024-11-18 08:47 | Outpatient (RCR) | payer OTHER, SELFPAY ==
--- NOTE | 2024-10-01 10:21 | MHC.PT.EP ---
[facility] [place] Office [place] Office [place] Office [address] David Iraheta [address] [phone] F: [phone] F: [phone] F: [phone] F: [phone] Physical Therapy Plan of Care Date of Evaluation: 09/30/24 Date of Surgery: Diagnosis: Strain of muscle, fascia, and tendon of the posterior muscle group at the thigh level S76.311A, M17.11 Unilateral primary OA, R knee signed 09/17/24 Modalities: myofascial strain, TENS, exercise, strengthening program signed by Dr. Cardozo Assessment: Pt is a RHD with PMH significant for SLE Osteoarthritis of knees, bilateral Hyperparathyroidism Vaginal discharge Physical exam Open wound of thumb Lupus Mild recurrent major depression Morbid obesity with BMI of 40.0-44.9, adult Vitamin D deficiency BMI 38.0-38.9,adult Intestinal malabsorption following gastrectomy Preeclampsia Obesity (BMI 30-39.9) Knee pain Hypertension Depression Proteinuria Autoimmune thyroiditis SLE (systemic lupus erythematosus related syndrome) History of foot surgery History of open reduction and internal fixation (ORIF) procedure (R hip age 10 per pt) History of sleeve gastrectomy Status post biopsy of kidney referrred to PT from rheumatology office for treatment of Strain of muscle, fascia, and tendon of the posterior muscle group at the thigh level S76.311A, M17.11 Unilateral primary OA, R knee signed 09/17/24 Modalities: myofascial strain, TENS, exercise, strengthening program signed by Dr. Cardozo . Pt is a Mom of three children under age 14, reports lack of formal exercise program. Pt expresses poor history of relief in R knee pain with past history of cortisone and gel injections. She notes history of being prescribed a knee brace but does not wear due to report of poor fit/increased discomfort. She lacks full knee extension -5 to 120 and has poor proximal knee and hip strength. She will benefit from a gentle low impact knee program with core/hip/knee stabilization in conjunction with use of modalities and manual therapy to address her pain. She expresses tolerance /willingness to attend therapy at a frequency of 1x/week Mondays due to her busy home schedule. Pt was educated re: goals of PT, findings of evaluation, and indications for treatment. Post initial evaluation, she was trialed with application of ROCKTAPE V strip in effort to provide support and ease joint pain of tibiofemoral joint with (+) outcome. She was issued seated hamstring and gastroc stretches in effort to ease posterior muscle tension and anterior knee pain. We discussed the benefit of using with ice trial of passive heel prop to restore ROM for knee extension. She exhibits high level of motivation for PT and appears to be an excellent candidate. She will be educated re: self care for use of ROCKTAPE support if she returns to PT reporting positive prolonged gain with use at [facility]. Frequency and Duration: The patient will be seen 2x/week x 4 weeks Short Term Goals: 1. Pt will demonstrate R knee AROM 0 to 120 degreess. 2. R SLR with good tolerance/ability. 3. Good eccentric control for functional transfers. 4. Improve HS flexibility by 25%. Lumber Stacker Driver Goals: 1. SLR into flexion with good strength. 2. Strength R knee 5/5. 3. Pt will ascend/descend stairs with good eccentric control. 4. Pt will express self management/I HEP program. 5. Pt will verbalize improved confidence/balance for stair climbing. Treatment Plan: Modalities to reduce pain, spasms and effusion. Manual therapy to restore motion and function. Therapeutic exercise to improve strength and flexibility. Neuromuscular re-education for posture and balance. Therapeutic activities to return to functional activities of daily living. Electronically signed by: Corinna Espinoza, PT, DPT Please sign and return to therapist. Thank you for your referral.
== END 2024-12-31 07:28 | disposition home or self-care (01) ==
LOC: HO.PTS 08:47
PROVIDERS: PCP Internal Medicine; Visit Provider Internal Medicine Rheumatology
DX: S76.311D Strain of muscle, fascia and tendon of the posterior muscle group at thigh level, right thigh, subsequent encounter (principal); M17.11 Unilateral primary osteoarthritis, right knee
CPT/HCPCS: 97014; 97110; 97140; 97162; 97535

== ENCOUNTER 2024-11-20 08:32 | Outpatient (AMB) | payer OTHER, SELFPAY ==
--- NOTE | 2024-11-20 08:38 | MHC.OFFVIS ---
Intake Visit Reasons: INJ- B/L knee Euflexxa #1 Intake Note: Diane is a 38 year old female who presents today for her bilateral knee Euflexxa injections #1. Allergies metformin [METFORMIN] Allergy (Intermediate, Verified 11/20/24 08:46) INFLAMMED GUMS, red gums, redness of gums doxycycline Adverse Reaction (Intermediate, Verified 11/20/24 08:46) Itching Medication List - Last Reconciled 11/20/24 by Eliza Bryant PA-C acetaminophen (Tylenol) 650 mg (2 x 325 mg) PO Q4H PRN albuterol sulfate 90 mcg/actuation (ProAir HFA) 2 puffs PO Q4-6H PRN albuterol sulfate 90 mcg/actuation 1 inh inhalation Q4-6H PRN cetirizine 10 mg PO DAILY PRN 90 days cholecalciferol (vitamin D3) 25 mcg PO DAILY 90 days clotrimazole 1% appl topical DAILY cyclobenzaprine 5 mg PO BEDTIME PRN diclofenac sodium 1% 4 grams topical QID fluticasone propionate 50 mcg/actuation (Flonase Allergy Relief) 1 spray intranasal DAILY 30 days furosemide (Lasix) 20 mg PO DAILY [hinge brace HEAVY DUTY] leflunomide 20 mg PO DAILY levothyroxine 25 mcg PO DAILY 90 days loratadine 10 mg PO DAILY PRN 90 days omeprazole 20 mg PO DAILY Plaquenil (hydroxychloroquine) 400 mg (2 x 200 mg) PO DAILY NS Shower Chair HEAVY DUTY trazodone 25 - 50 mg PO BEDTIME triamcinolone acetonide (Nasal Allergy) 2 sprays intranasal DAILY valacyclovir 1,000 mg PO q12h valsartan 160 mg PO DAILY HPI HPI INJ- B/L knee Euflexxa #1: Details: 38-year-old female presents to the office today for bilateral knee Euflexxa injection#1. She has no concerns today. [facility] Medical History Osteoarthritis of knees, bilateral Hyperparathyroidism Vaginal discharge Physical exam Open wound of thumb Lupus Mild recurrent major depression Morbid obesity with BMI of 40.0-44.9, adult Vitamin D deficiency BMI 38.0-38.9,adult Intestinal malabsorption following gastrectomy Preeclampsia Obesity (BMI 30-39.9) Knee pain Hypertension Depression Proteinuria Autoimmune thyroiditis SLE (systemic lupus erythematosus related syndrome) Surgical History History of foot surgery History of open reduction and internal fixation (ORIF) procedure History of sleeve gastrectomy Status post biopsy of kidney Family History Father Asthma Mother No problems noted. Brother No problems noted. Brother No problems noted. Sister No problems noted. Social History Housing: Apartment Alcohol intake: never Patient Tobacco Use Status: Never used Tobacco e-Cigarette/Vaping Use: Never Used Second Hand Smoke Exposure: No service: No Current occupational status: unemployed Current occupational exposures/hazards: No Cognitive needs: No Hearing needs: No Vision needs: No Female Reproductive History Menstrual Age of Menarche: 11 Review of Systems Const All systems reviewed & are unremarkable except as noted in HPI and below Physical Exam Extrem Other: Left knee skin intact, no erythema or joint effusion. Tenderness along the medial joint line. ROM full with crepitus. Negative steinmans. No ligamentous laxity. NVI. Right knee skin intact, no erythema or joint effusion. Tenderness along the medial joint line. ROM full with crepitus. Negative steinmans. No ligamentous laxity. NVI. Office Procedures AMB Joint Injection/Aspiration Joint Injection/Aspiration Details: Bilateral knee Euflexxa Primary Site: right knee Secondary Site: left knee Prep: site was prepped using aseptic technique, ethochloride spray was applied and injection warnings given Injected: in the joint Approach Used: anterolateral Procedure: The patient tolerated the procedure well Coding 68331 - Glenohumeral/Tronchanteric Bursa/Intraarticular Procedure code (CPT) selection complete Assessment & Plan Assessment & Plan (1) Osteoarthritis of knees, bilateral: Code(s): M17.0 - Bilateral primary osteoarthritis of knee Category: Medical Qualifiers: Osteoarthritis type: primary Qualified Code(s): M17.0 - Bilateral primary osteoarthritis of knee Plan: First injection of 3 given today bilateral knees which the patient tolerated well. She will see me back next week for the 2nd injection. I recommend rest ice and anti-inflammatory chet use as needed limit activities as tolerated. Coding Level of Care Code Procedure Only Diagnoses Primary osteoarthritis of both knees M17.0 Osteoarthritis type: primary CPT Codes Coding - Joint 7: 14439 - Glenohumeral/Tronchanteric Bursa/Intraarticular ([id number])
--- OUTSIDE RECORDS SUMMARY | 2024-11-20 08:48 | XMS_ITS | Data Portability ---
Author Organization [facility] [address] Address [address] [place] [id number] Assessment No assessment recorded. Plan of Treatment Reminders Order Date Submit Date Provider Last Modified By Organization Details Last Modified Time Details Appointments None recorded. Lab None recorded. Referral None recorded. Procedures None recorded. Surgeries None recorded. Imaging None recorded. Medication Orders mupirocin 2 % topical ointment 2023 024 [facility] #[id number], [address] [place], [address], 4 18:36:48 cephalexin 500 mg capsule 2023 024 [id number], [address] [place], [address], 4 18:36:48 Patient TargetsNo targets recorded. Patient InstructionsNo instructions recorded. Reason for Referral None Reported. Problems Name Problem SNOMED Code Status Onset Date Resolution Date Notes Provider Name and Address Organization Details Recorded Time Lupus erythematosus 303449185 Active 2023 Melody Palmer null, PA - [facility] 17:11:28 Depressive disorder 31472360 Active 2023 Melody Palmer null, PA - [facility] 17:11:43 Anxiety 15835597 Active 2023 Melody Palmer null, PA - [facility] 17:11:52 Problem Notes None recorded. Medical Equipment None Reported. Allergies Allergen ID Allergen Name Allergen Category Reaction Reaction Severity Criticality Documentation Date Start Date Code Code System Note Provider Name and Address Organization Details Recorded Time 243802 metformin medicatio n hives mild Not available [...] Available Not Available No t Available cholecalcif koe (vitamin D3) 125 mcg (5,000 unit) capsule [...] Updated DateTime 4 162.56 cm 45.3 kg/m2 436386. 39 g 97.7 [degF] 18 /min 100 % 100 % 72 /min 146 mm[Hg] 88 mm[Hg] Melody Chakraborty PA - [facility] 17:15:27 Social History Question Answer Notes LastModified by [employer] Status Work Ltd Details LastModified Time Tobacco Smoking Status Never Smoker Melody scharder PA - [facility] 10/07/2023 17:12:27 Have You Had Direct Contact, Or Contact During Intimacy, With Monkeypox Rash, Scabs, Or Body Fluids From A Person With Monkeypox? No Information not available 10/07/2023 What Was The Date Of Your Most Recent Tobacco Screening? 10/07/2023 Information not available 10/07/2023 Have You Recently Traveled Abroad? No Information not available 10/07/2023 Sex: Unknown Functional Status Question Answer Note LastModified by Organizat ion Details LastModified Time Do you use any illicit or recreational drugs? No Information not available 10/07/2023 Do you or have you ever used any other forms of tobacco or nicotine? No Information not available 10/07/2023 What is your level of alcohol consumption? None Information not available 10/07/2023 Mental Status None recorded. Family History Relationship [...] SNOMED-CT Code Diagnosis ICD10 Code Diagnosis [place] [id number] [place] [address] [place] [address] 10/07/2023 16:55:57 10/07/2023 17:37:11 Impetigo 03970756 L01.00 Impetigo (say im-puh-TY -go ) is [...] you can use an alcohol-ba sed hand soft metals engraver hand. Don't share items such as towels, sheets, and clothing until the infection is gone. Wash anything that may have touched the infected area. Try to avoid scratching the area. Health Concerns Section Related Observation LastModified by Organization Detai ls LastModified Time None Recorded Concern Status LastModified by Organization Details LastModified Time None Recorded Advance Directives Directive None Recorded Payers Insurance Date Sequence Insurance Name Policy Number Policy Joseph Covered Member ID Joseph Member ID Guarantor Name 10/07/2023 1 [facility] [employer] (MEDICAID HMO) MISTY Vides [id number] Diane Vides 10/07/2023 1 [facility] PLAN - [facility] (MEDICAID REPLACEMENT - HMO) Diane Vides [id number] Diane Vides 10/07/2023 2 MEDICAID-[place]: [facility] Diane Vides [id number] Diane Vides Notes Date Note Type Note [...] Coto NP [address] [place], [address], [place] - [facility] 10/07/2023 18:36:57 OBGyn Episode No OBEpisode recorded.
--- OUTSIDE RECORDS SUMMARY | 2024-11-20 08:48 | XMS_ITS | Encounter Summary ---
Author Organization [facility] Address [address] [place] [address] Care Team Providers Care Ophthalmology Assistant Name Role Phone Delores Silva MD Primary Care Provider [phone] Encounter Details Date Type Department Care Team [...] AM EDT Office Visit Bariatric Surgery - [place] [address] [place] [address] Ana Lilia Bruce PA [address] [place] [address] documented as of this encounter Visit Diagnoses Not on filedocumented in this encounter Care Teams Ophthalmology Assistant Relationship Specialty Start Date End Date Delores Silva MD [address] [facility] , [address] [facility] Physician Associ D/B/A: [facility] [place] PCP - General Internal Medicine 02/09/22 documented as of this encounter
--- OUTSIDE RECORDS SUMMARY | 2024-11-20 08:48 | XMS_ITS | Clinical Summary ---
Author Organization [facility] Address [address] [place] [address] Care Team Providers Care Pressure Tester Name Role Phone Delores Mancia MD Primary [...] age to complete this topic Care Teams Pressure Tester Relationship Specialty Start Date End Date Delores Mancia MD [address] [facility] , [address] [facility] Physician Associ D/B/A: [facility] [place] [address] PCP - General Internal Medicine 12/13/23
--- OUTSIDE RECORDS SUMMARY | 2024-11-20 08:48 | XMS_ITS | Clinical Summary ---
Author Organization [employer] Address [address] [place] [address] [address] [place] [address] Care Team Providers Care Short Order Fry Cook Name Role Phone Unavailable Primary Care Provider Unavailabl e Immunizations Immunization Administration Dates Next Due DTP 09/06/1998, 6,07/09/1994,1993,03/09/1994 [...] patient's age to complete this topic Insurance [facility]
--- OUTSIDE RECORDS SUMMARY | 2024-11-20 08:49 | XMS_ITS | Clinical Summary ---
Author Organization [facility] Facility Address [address] [place] [id number] Care Team Providers Care Topography Technician Name Role Phone Delores Mancia MD Primary Care Provider [phone] Allergies Active Allergy Reactions Criticality Noted Date [...] escitalopram (LEXAPRO) 10 MG tablet 2021 Active chlorthalidone 25 MG tablet Take 0.5 tablets (12.5 mg total) by mouth 1 (one) time each day 45 tablet 09/12/2024 12/12/19 25 Active valsartan (DIOVAN) 160 MG tabletIndicatio ns:Persistent proteinuria,Chr onic kidney disease stage 1 TAKE 1 TABLET BY MOUTH EVERY DAY 90 tablet 11 09/17/2024 Active Active Problems Problem Noted Date Diagnosed [...] Visit [facility] [address] [place] [address] Darci Gamble MD Proteinuria, not otherwise specified (Primary Dx); Chronic kidney disease, stage 2 (mild) 10/03/2024 Orders Only [facility] [address] [address] Darci Gamble MD 09/30/2024 Orders Only [facility] [address] [address] Darci Gamble MD Chronic kidney disease, stage 2 (mild); Persistent proteinuria 09/16/2024 Refill [facility] [address] [place] [address] Darci Gamble MD Persistent proteinuria; Chronic kidney disease stage 1 09/12/2024 9:45 AM EST Telemedicine [facility] [place] [address] [place] [id number] Darci Gamble MD Chronic kidney disease, stage 2 (mild) (Primary Dx); Persistent proteinuria 09/06/2024 Orders Only [facility] [address] [facility] [address] [place] [phone] Darci Gamble MD from Last 3 Months Immunizations Immunization Administration Dates Next Due DTP [...] Visit [facility] the [address] [place] [address] Darci Gamble MD [address] [facility] [address] [place] [address] Health Maintenance Due Date Last Done Comments Pneumococcal Vaccine: Peds ( 0 to 5 Years) and At-Risk Patients (6 to 49 Years) (1 of 2 - PCV) 11/24/2002 Influenza Vaccine (Season Ended) 2025 05/02/2022, 05/12/2021, 05/05/2020, Additional history exists Hepatitis B Vaccine Completed 09/07/1998, 05/06/1998, 02/17/1998 Procedures Procedure Name Priority Date/Time Associated Diagnosis Comments CALCIUM Routine 10/03/2024 9:48 AM EDT CREATININE, BLOOD Routine 10/03/2024 9:4 8 AM EDT BUN Routine 10/03/2024 9:48 AM [...] - 1.4 mg/dL See order comments eGFR (Calc) >60 See orde r comments Comment: Chronic Kidney Disease: ??Estimated GFR < 60 mL/min/1.73m2 Severe Kidney Disease: ??Estimated GFR < 15 mL/min/1.73m2 10/03/2024 9:48 AM EDT 10/03/2024 9:48 AM EDT us Darci Gamble MD LAB BLOOD ORDERABLES Final Re sult [id number] See order comments [place] [address] * (ABNORMAL) Uric acid (10/03/2024 9:48 AM EDT) Uric Acid 6.4(H) 2.4 - 5.7 mg/dL See order comments Blood (Blood, Venous) 10/03/2024 9:48 AM EDT 10/03/2024 9:48 AM EDT us Darci Gamble MD LAB BLOOD ORDERABLES Final Re sult Performing Organization Address [facility] Phone Number [place] See order comments [place] [address] * BUN (10/03/2024 9:48 AM EDT) BUN 10 9 - 16 mg/dL See order comments 10/03/2024 9:48 AM EDT 10/03/2024 9:48 AM EDT us Darci Gamble MD LAB BLOOD ORDERABLES Final Re sult Performing Organization Address [facility] de Phone Number [place] See order comments [place] [address] * Calcium (10/03/2024 9:48 AM EDT) Calcium 8.8 8.4 - 10.2 mg/dL See order comments 10/03/2024 9:48 AM EDT 10/03/2024 9:48 AM EDT us Darci Gamble MD LAB BLOOD ORDERABLES Final Re sult Performing Organization Address [facility] de Phone Number [place] See order comments [place] [address] * (ABNORMAL) Electrolyte panel (10/03/2024 9:48 AM [...] ORDERABLES Final Re sult Performing Organization Address [facility]/ZIP Co de Phone Number [place] See order comments [place] [address] * (ABNORMAL) Urine Albumin / Creatinine Ratio (09/06/2024 9:21 AM EST) Creatinine, Urine 129.0 mg/dL [facility] Microalbumin Urine Random 147.0(H) 0.0 - 29.0 mg/L [facility] Microalbumin/Cre atinine Ratio 114(H) <30 mg/g creat [facility] 09/06/2024 9:21 AM EST 09/06/2024 10:22 AM EST us Darci Gamble MD LAB URINE ORDERABLES Final Re sult Performing Organization Address [facility] Co de Phone Number [facility] [address] [place] [address] * (ABNORMAL) Urinalysis Reflex Microscopic (09/06/2024 9:21 AM EST) Pathologist [facility] Specific [place] 1.015 1.003 - 1.030 [facility] pH Urine 5.5 5.0 - 8.0 pH [facility] LEUKOCYTES, URINE Small(A) Negative [facility] Nitrite, Urine Negative Negative [facility] Protein, Urine 30(A) <=Trace mg/dL [facility] Glucose Urine Negative Negative mg/dL [facility] Ketones, Urine Negative Negative mg/dL [facility] Urobilinogen Urine 0.2 0.2 - 1.0 mg/dL [facility] Bilirubin Urine Negative Negative [facility] Blood Urine Negative Negative [facility] RBC, Urine 3.4 0 - 4 /HPF [facility] WBC, Urine 40.4(H) 0 - 4 /HPF [facility] Squamous Epithelial, Urine >100(H) 0 - 60 /LPF [facility] Bacteria, Urine Negative Negative /HPF [facility] Hyaline Casts, UA 1.6 0 - 3 /LPF [facility] 09/06/2024 9:21 AM EST 09/06/2024 10:22 AM EST Darci Gamble MD LAB URINE ORDERABLES Final Re sult Performing Organization Address [facility]/ZIP Co de Phone Number [facility] [address] [place] [address] * Urine Culture (09/06/2024 9:21 AM EST) Culture Result, Urine 50,000-99,000 CFU/mL Mixed urogenital bela, no uropathogens present. Suggest repeat specimen if clinically indicated. [facility] 09/06/2024 9:21 AM EST 09/06/2024 10:21 AM EST Result [facility] Darci Gamble MD LAB URINE ORDERABLES Final Re sult Performing Organization Address [facility]/ZIP Co de Phone Number [facility] [address] [place] [address] * (ABNORMAL) Iron Panel (09/06/2024 8:47 AM EST) Iron 46 40 - 150 mcg/dL [facility] TIBC 188(L) 250 - 450 mcg/dL [facility] Iron Saturation (TSat) 24 15 - 50 % [facility] 09/06/2024 8:47 AM EST 09/06/2024 9:07 AM EST us Darci Gamble MD LAB [id number] SOLICITED RESULTS Final Result [facility] [address] [place] [address] * (ABNORMAL) CBC auto differential (09/06/2024 8:47 AM EST) WBC 5.3 4.8 - 10.8 K/[facility] RBC 3.90 3.80 - 4.80 M/[facility] Hgb 11.7 11.5 - 16.0 g/dL [facility] Hematocrit 34.1(L) 35.0 - 47.0 % [facility] MCV 87.9 79.0 - 98.0 FL [facility] MCH 30.2 27.0 - 32.0 pcg [facility] MCHC 34.3 32.0 - 37.0 g/dL [facility] RDW 16.0(H) 11.0 - 15.0 % [facility] Platelets 238 130 - 400 K/[facility] MPV 11.7(H) 7.0 - 11.0 FL [facility] nRBC Count 0.0 <1.0 % [facility] NRBC Absolute 0.00 <0.10 K/[facility] Bands Relative 70.9 % [facility] Lymphocyte Realative Percent 18.7 % [facility] Monocyte Relative Percent 6.9 % [facility] Eosinophil Relative Percent 2.2 % [facility] Basophils Relative Diff 0.7 % [facility] Immature Granulocytes 0.6 % [facility] Neutrophils Absolute 3.78 1.50 - 7.00 K/[facility] Lymphocytes Absolute 1.00 1.00 - 5.00 K/[facility] Monocytes Absolute 0.37 0.20 - 1.00 K/[facility] Eosinophil Absolute 0.12 0.00 - 0.50 K/[facility] Basophil ABS 0.04 0.00 - 0.20 K/[facility] Immature Grans (Absolute) 0.03 0.00 - 0.03 K/[facility] 09/06/2024 8:47 AM EST 09/06/2024 9:08 AM EST Darci Gamble MD LAB BLOOD ORDERABLES Final Re sult Performing Organization Address [facility]/ZIP Co de Phone Number [facility] [address] [place] [address] * Phosphorus (09/06/2024 8:47 AM EST) Phosphorus 2.7 2.5 - 4.5 mg/dL [facility] 09/06/2024 8:47 AM EST 09/06/2024 9:07 AM EST Darci Gamble MD LAB BLOOD ORDERABLES Final Re sult Performing Organization Address City/[facility] de Phone Number [facility] [address] [place] [address] * (ABNORMAL) PTH, Intact (09/06/2024 8:47 AM EST) PTH 129.2(H) 18.5 - 88.0 pcg/mL [facility] 09/06/2024 8:47 AM EST 09/06/2024 9:07 AM EST Darci Gamble MD LAB BLOOD ORDERABLES Final Re sult Performing Organization Address City/[facility]/ZIP Co de Phone Number [facility] [address] [place] [address] * Hemoglobin A1c (09/06/2024 8:47 AM EST) Hemoglobin A1C 4.9 <6.5 % [facility] Estimated Average Glucose 94 mg/dL [facility] 09/06/2024 8:47 AM EST 09/06/2024 9:08 AM EST Darci Gamble MD LAB BLOOD ORDERABLES Final Re sult Performing Organization Address [facility] Co de Phone Number [facility] [address] [place] [address] * Ferritin (09/06/2024 8:47 AM EST) Ferritin 17 8 - 252 ng/mL [facility] 09/06/2024 8:47 AM EST 09/06/2024 9:07 AM EST Darci Gamble MD LAB BLOOD ORDERABLES Final Re sult Performing Organization Address City/[facility] Co de Phone Number [facility] [address] [place] [address] from Last 3 Months Insurance [facility] Medicaid [facility] Medicaid Care Teams Topography Technician Relationship Specialty Start Date End Date Delores Mancia MD [address] [place], [place] PCP - General 07/20/20
--- OUTSIDE RECORDS SUMMARY | 2024-11-20 08:49 | XMS_ITS | Clinical Summary ---
Author Organization [facility] Address [address] [place] [address] Phone Care Team Providers Care Supervisor [employer] Name Role Phone Delores Silva MD Primary Care Provider [phone] Allergies Active Allergy Reactions Criticality Noted Date [...] 8 (eight) hours. 180 tablet 5 Active simethicone (MYLICON) 80 mg chewable tablet [...] Morbid (severe) obesity due to excess calories ([facility] V24, [facility] V28) 06/18/2024 Class 3 severe obesity with body mass index (BMI) of 40.0 to 44.9 in adult ([facility] V24, [facility] V28) 04/12/2024 Absolute anemia 03/22/2024 Encounters Date Type Department Care Team Description 09/30/2024 Telephone [facility] Infusion Center [address] [address] [place] [phone] Sharri Shipman RN 09/23/2024 11:30 AM EDT Office Visit Bariatric Surgery - [place] [address] [place] [phone] Ana Lilia Bruce PA Class 3 severe obesity due to excess calories with serious comorbidity and body mass index (BMI) of 40.0 to 44.9 in adult ([facility] V24, [facility] V28) (Primary Dx); Bariatric surgery status 09/09/2024 10:00 AM EST Office Visit [facility] Hematology Oncology [address] [place] [phone] Reji Hernandez MD Anemia, unspecified type (Primary Dx); Bariatric surgery status 09/06/2024 7:50 AM EST - 09/06/2024 11:59 PM EST Hospital Encounter [facility] Ultrasound [address] [place] [phone] Bilateral edema of lower extremity Discharge Disposition: Home or Self Care 09/05/2024 11:15 AM EST Office Visit Bariatric Surgery - [address] [phone] Ana Lilia Bruce PA Class 3 severe obesity due to excess calories with serious comorbidity and body mass index (BMI) of 40.0 to 44.9 in adult (CMS/HCC V24, CMS/[facility] V28) (Primary Dx); Bilateral edema of lower extremity; Bariatric surgery status 09/05/2024 Telephone Bariatric Surgery - [address] [phone] Ana Lilia Bruce PA 09/02/2024 1:28 PM EST - 09/02/2024 11:59 PM EST Hospital Encounter [facility] [address] [place] [phone] Reji Hernandez MD Anemia due to vitamin B12 deficiency, unspecified B12 deficiency type (Primary Dx) Discharge Disposition: Home or Self Care 08/26/2024 12:30 PM EST Nutrition Bariatric Surgery - [address] [phone] Class 3 severe obesity with body mass index (BMI) of 40.0 to 44.9 in adult, unspecified obesity type, unspecified whether serious comorbidity present ([facility] V24, [facility] V28) (Primary Dx) from Last 3 Months Immunizations Name Administration Dates Next Due Pfizer SARS-CoV-2 COVID-19, mRNA, LNP-S, preservative free 10/04/2022 Surgical History Surgery Date Site/Laterality Comments BARIATRIC SURGERY 2019 PROCEDURE:BARIATRIC SURGERY ORIF HIP FRACTURE Right orif r hip from dislocation Medical History Medical History Date Comments Anemia DX:Anemia Hypertension DX:Hypertension Depression DX:Depression Hypothyroidism not taking meds Anxiety Arthritis Joint pain Lupus (systemic lupus erythematosus) (CMS/HCC V2 4, CMS/HCC V28) Social History Tobacco Use Types Packs/Day Years [...] AM EDT Office Visit Bariatric Surgery - [place] [address] [place] [phone] Ana Lilia Bruce PA [address] [place] [phone] Health Maintenance Due Date Last Done Comments [...] age to complete this topic Meningococcal B Vaccine Aged Out No l onger eligible based on patient's age to complete [...] this topic Medical Devices Implanted Type Area [employer] Device Identifier Shelf Expiration Date Model / Serial / Lot Bone Pin Right: Hip Procedures Procedure Name Priority Date/Time Associated Diagnosis Comments URINALYSIS WITH REFLEX MICROSCOPIC Routine 09/06/2024 9:21 AM EST Chronic kidney disease (CKD) stage G3a/A1, moderately decreased glomerular filtration rate (GFR) between 45-59 mL/min/1.73 square meter and albuminuria creatinine ratio les* ([facility] V24, [facility]/HCC V28) Proteinuria Anemia, unspecified URINALYSIS WITH REFLEX MICROSCOPIC Routine 09/06/2024 9:21 AM EST Chronic kidney disease (CKD) stage G3a/A1, moderately decreased glomerular filtration rate (GFR) between 45-59 mL/min/1.73 square meter and albuminuria creatinine ratio les* (CMS/HCC V24, CMS/HCC V28) Proteinuria Anemia, unspecified MICROALBUMIN CREATININE URINE RATIO Routine 09/06/2024 9:21 AM EST Chronic kidney disease (CKD) stage G3a/A1, moderately decreased glomerular filtration rate (GFR) between 45-59 mL/min/1.73 square meter and albuminuria creatinine ratio les* (CMS/HCC V24, CMS/HCC V28) Proteinuria Anemia, unspecified HCG QUALITATIVE, URINE Routine 9:21 AM EST Morbid (severe) obesity due to excess calories (CMS/HCC V24, CMS/HCC V28) CULTURE URINE Routine 09/06/2024 9:21 AM EST Chronic kidney disease (CKD) stage G3a/A1, moderately decreased glomerular filtration rate (GFR) between 45-59 mL/min/1.73 square meter and albuminuria creatinine ratio les* (CMS/HCC V24, CMS/HCC V28) Proteinuria Anemia, unspecified PHOSPHORUS Routine 09/06/2024 8:47 AM EST Chronic kidney disease (CKD) stage G3a/A1, moderately decreased glomerular filtration rate (GFR) between 45-59 mL/min/1.73 square meter and albuminuria creatinine ratio les* (CMS/HCC V24, CMS/HCC V28) Proteinuria Anemia, unspecified CBC WITH AUTO DIFFERENTIAL Routine 09/06/2024 8:47 AM EST Chronic kidney disease (CKD) stage G3a/A1, moderately decreased glomerular filtration rate (GFR) between 45-59 mL/min/1.73 square meter and albuminuria creatinine ratio les* (CMS/HCC V24, CMS/HCC V28) Proteinuria Anemia, unspecified IRON AND TIBC Routine 09/06/2024 8:47 AM EST Chronic kidney disease (CKD) stage G3a/A1, moderately decreased glomerular filtration rate (GFR) between 45-59 mL/min/1.73 square meter and albuminuria creatinine ratio les* (CMS/HCC V24, CMS/HCC V28) Proteinuria Anemia, unspecified PARATHYROID HORMONE INTACT Routine 09/06/2024 8:47 AM EST Chronic kidney disease (CKD) stage G3a/A1, moderately decreased glomerular filtration rate (GFR) between 45-59 mL/min/1.73 square meter and albuminuria creatinine ratio les* (CMS/HCC V24, CMS/HCC V28) Proteinuria Anemia, unspecified HEMOGLOBIN A1C Routine 09/06/2024 8:47 AM EST Chronic kidney disease (CKD) stage G3a/A1, moderately decreased glomerular filtration rate (GFR) between 45-59 mL/min/1.73 square meter and albuminuria creatinine ratio les* (CMS/HCC V24, CMS/HCC V28) Proteinuria Anemia, unspecified FERRITIN Routine 09/06/2024 8:47 AM EST Chronic kidney disease (CKD) stage G3a/A1, moderately decreased glomerular filtration rate (GFR) between 45-59 mL/min/1.73 square meter and albuminuria creatinine ratio les* (CMS/HCC V24, CMS/HCC V28) Proteinuria Anemia, unspecified CBC AND DIFFERENTIAL Routine 09/06/2024 8:47 AM EST Chronic kidney disease (CKD) stage G3a/A1, moderately decreased glomerular filtration rate (GFR) between 45-59 mL/min/1.73 square meter and albuminuria creatinine ratio les* (CMS/HCC V24, CMS/HCC V28) Proteinuria Anemia, unspecified VITAMIN B1 Routine 09/06/2024 [...] 09/02/2024 1:23 PM EST Anemia, unspecified type LIPID PANEL Routine 09/11/2023 from Last 3 Months or Most Recently Relevant to Health Maintenance Results * (ABNORMAL) Urinalysis with reflex microscopic (09/06/2024 9:21 AM EST) Specific [place] Urine 1.015 1.003 - 1.030 LAB URINALYSIS - AUTOMATED METHOD 09/06/2024 10:35 AM EST [facility] pH, Urine 5.5 5.0 - [...] URINALYSIS - AUTOMATED METHOD 09/06/2024 10:35 AM EST [facility] Urine Urine specimen obtained by clean catch procedure / Unknown Non-blood Collection / Unknown 09/06/2024 9:21 AM EST 09/06/2024 10:22 AM EST Darci Gamble MD LAB URINE ORDERABLES Final Re sult [facility] [address] [place] [address], [place] [phone] * (ABNORMAL) Microalbumin creatinine urine ratio (09/06/2024 9:21 AM EST) Creatinine, Urine 129.0 mg/dL LAB CHEMISTRY METHOD 09/06/2024 12:09 PM [facility] Microalb, Ur 147.0(H) 0.0 - 29.0 mg/L LAB CHEMISTRY METHOD 09/06/2024 12:09 PM [facility] Microalb/Crea t Ratio 114(H) <30 mg/g creat LAB CHEMISTRY METHOD 09/06/2024 12:09 PM [facility] Urine Urine specimen obtained by clean catch procedure / Unknown Non-blood Collection / Unknown 09/06/2024 9:21 AM EST 09/06/2024 10:22 AM EST Darci Gamble MD LAB URINE ORDERABLES Final Re sult [facility] [address] [place] [address], [place] [phone] * , urine (09/06/2024 9:21 AM EST) Preg Test, Ur Negative Negative 09/06/2024 10:30 AM EST [facility] Urine Urine specimen obtained by clean catch procedure / Unknown Non-blood Collection / Unknown 09/06/2024 9:21 AM EST 09/06/2024 10:22 AM EST Ana Lilia WESTON LAB URINE ORDERABLES Final R esult [facility] [address] [place] [address], [place] [phone] * Culture urine (09/06/2024 9:21 AM EST) Pathologist [facility] Culture, Urine 50,000-99,000 CFU/mL Mixed urogenital bela, no uropathogens present. Suggest repeat specimen if clinically indicated. 09/08/2024 12:56 PM [facility] Urine Urine specimen obtained by clean catch procedure / Unknown Non-blood Collection / Unknown 09/06/2024 9:21 AM EST 09/06/2024 10:21 AM EST Darci Gamble MD LAB MICROBIOLOGY - GENERAL OR DERABLES Final Result Performing Organization Address City/[facility]/ZIP Co de Phone Number [facility] [address] [place] [address], * (ABNORMAL) CBC auto differential (09/06/2024 8:47 AM EST) Only the most recent of2 resultswithin the time period is included. Pathologist [facility] WBC 5.3 4.8 - 10.8 K/mcL LAB [...] % LAB HEMETOLOGY METHOD 09/06/2024 9:59 AM EST [facility] Immature Granulocytes Relative 0.6 % LAB HEMETOLOGY METHOD 09/06/2024 9:59 AM EST [facility] Neutrophils Absolute 3.78 1.50 - 7.00 K/mcL LAB HEMETOLOGY METHOD 09/06/2024 9:59 AM [facility] Lymphocytes Absolute 1.00 1.00 - 5.00 K/mcL LAB HEMETOLOGY METHOD 09/06/2024 9:59 AM EST [facility] Monocytes Absolute 0.37 0.20 - 1.00 K/mcL LAB HEMETOLOGY METHOD 09/06/2024 9:59 AM EST [facility] Eosinophils Absolute 0.12 0.00 - 0.50 K/mcL LAB HEMETOLOGY METHOD 09/06/2024 9:59 AM [facility] Basophils Absolute 0.04 0.00 - [...] MD LAB BLOOD ORDERABLES Final Re sult [facility]) [facility] [address] [place] [address], * (ABNORMAL) Iron and TIBC (09/06/2024 8:47 AM EST) Only the most recent of2 resultswithin the time period is included. [facility] Signature Iron 46 40 - 150 mcg/dL LAB CHEMISTRY METHOD 09/06/2024 10:20 AM EST [facility] TIBC 188(L) 250 - 450 mcg/dL LAB CHEMISTRY METHOD 09/06/2024 10:20 AM EST [facility] Iron Saturation 24 15 - 50 % LAB CHEMISTRY METHOD 09/06/2024 10:20 AM EST [facility] Blood Venous blood specimen / Unknown Venipuncture / Unknown 09/06/2024 8:47 AM EST 09/06/2024 9:07 AM EST Darci Gamble MD LAB BLOOD ORDERABLES Final Re sult Performing Organization Address [facility]/ZIP Co de Phone Number [facility] [address] [place] [address], [place] [phone] * Zinc (09/06/2024 8:47 AM EST) Zinc 68 60 - 130 ug/dL 09/09/2024 2:57 PM EST [facility] Comment: Elevated results may be due to sample collected in a non-certified trace element-free tube. This test was developed and the performance characteristics determined by [facility]. It has not been cleared or approved by the FDA. The laboratory is regulated under CLIA as qualified to perform high-complexity testing. This test is used for patient testing purposes. It should not be regarded as investigational or for research. Test performed at [facility], [address] , [place], [place] ??[address] ? [phone] Ann-Marie Kerr MD, PhD - Lead Based Paint Technician Blood Venous blood specimen / Unknown Venipuncture / Unknown 09/06/2024 8:47 AM EST 09/06/2024 9:08 AM EST Ana Lilia WESTON LAB BLOOD ORDERABLES Final R esult Performing Organization Address City/[facility]/ZIP Co de Phone Number [facility] [address] [place] [address] * Selenium serum (09/06/2024 8:47 AM EST) [facility] Selenium 109 63 - 160 mcg/L 09/11/2024 7:46 PM EST [facility] Comment: This test was developed and its analytical performance characteristics have been determined by [place] [place]. It has not been cleared or approved by the U.S. Food and Drug Administration. This assay has been validated pursuant to the CLIA regulations and is used for clinical purposes. Test Performed by [facility], [facility], [address] [place] [address] Edgard Dejseus M.D., Ph.D., Director of Laboratories , CLIA [id number] Blood Venous blood specimen / Unknown Venipuncture / Unknown 09/06/2024 8:47 AM EST 09/06/2024 9:08 AM EST Ana Lilia WESTON LAB BLOOD ORDERABLES Final R esult [facility] [address] [place] [address] * Vitamin D 25 hydroxy (09/06/2024 8:47 AM EST) [facility] Vit D, 25-Hydroxy 36.4 30.0 - 80.0 ng/mL LAB CHEMISTRY METHOD 09/06/2024 12:07 PM EST [facility] Blood Venous blood specimen / Unknown Venipuncture / Unknown 09/06/2024 8:47 AM EST 09/06/2024 9:07 AM EST Ana Lilia WESTON LAB BLOOD ORDERABLES Final R esult [facility] [address] [place] [address], [place] [phone] * Vitamin B1 (09/06/2024 8:47 AM EST) [facility] Vitamin B1 Whole Blood 43 38 - 122 ug/L 09/11/2024 9:51 AM EST [facility] Comment: This test was developed and the performance characteristics determined by [facility]. It has not been cleared or approved by the FDA. The laboratory is regulated under CLIA as qualified to perform high-complexity testing. This test is used for patient testing purposes. It should not be regarded as investigational or for research. Test performed at [facility], [address] [place], [place] ??[address] ? [phone] Ann-Marie Kerr MD, PhD - Lead Based Paint Technician Blood Venous blood specimen / Unknown Venipuncture / Unknown 09/06/2024 8:47 AM EST 09/06/2024 9:08 AM EST Ana Lilia [facility]ON LAB BLOOD ORDERABLES Final R esult Performing Organization Address City/[facility] Co de Phone Number [facility] [address] [place] [address] * (ABNORMAL) Vitamin B6 (09/06/2024 8:47 AM EST) Vitamin B6 (Pyridoxine) Level 2(L) 5 - 50 ug/L 09/10/2024 11:37 AM EST [facility] Comment: This test was developed and the performance characteristics determined by [facility]. It has not been cleared or approved by the FDA. The laboratory is regulated under CLIA as qualified to perform high-complexity testing. This test is used for patient testing purposes. It should not be regarded as investigational or for research. Test performed at [facility], [address] [place], [place] ??[address] ? [phone] Ann-Marie Kerr MD, PhD - Lead Based Paint Technician Blood Venous blood specimen / Unknown Venipuncture / Unknown 09/06/2024 8:47 AM EST 09/06/2024 9:16 AM EST Ana Lilia WE[facility]ON LAB BLOOD ORDERABLES Final R esult Performing Organization Address City/[facility]/ZIP Co de Phone Number [place] [address] * Prealbumin (09/06/2024 8:47 AM EST) Prealbumin 22 18 - 45 mg/dL LAB CHEMISTRY METHOD 09/06/2024 11:20 AM EST [facility] Blood Venous blood specimen / Unknown Venipuncture / Unknown 09/06/2024 8:47 AM EST 09/06/2024 9:07 AM EST Ana Lilia WE[facility]ON LAB BLOOD ORDERABLES Final R esult Performing Organization Address City/[facility]/ZIP Co de Phone Number [facility] [address] [place] [address], [place] [phone] * Phosphorus (09/06/2024 8:47 AM EST) Pathologist [facility] Phosphorus 2.7 2.5 - 4.5 mg/dL LAB CHEMISTRY METHOD 09/06/2024 11:20 AM EST [facility] Blood Venous blood specimen / Unknown Venipuncture / Unknown 09/06/2024 8:47 AM EST 09/06/2024 9:07 AM EST Darci Gamble MD LAB BLOOD ORDERABLES Final Re sult Performing Organization Address City/[facility]/ZIP Co de Phone Number [facility] [address] [place] [address], [place] [phone] * (ABNORMAL) Parathyroid hormone intact (09/06/2024 8:47 AM EST) PTH 129.2(H) 18.5 - 88.0 pcg/mL LAB CHEMISTRY METHOD 09/06/2024 12:07 PM EST [facility] Blood Venous blood specimen / Unknown Venipuncture / Unknown 09/06/2024 8:47 AM EST 09/06/2024 9:07 AM EST Darci Gamble MD LAB BLOOD ORDERABLES Final Re sult Performing Organization Address City/[facility]/ZIP Co de Phone Number [facility] [address] [place] [address], [place] [phone] * Hemoglobin A1c (09/06/2024 8:47 AM EST) [facility] Hemoglobin A1C 4.9 <6.5 % LAB CHEMISTRY METHOD 09/09/2024 9:30 PM EST [facility] Mean Bld Glu Estim. 94 mg/dL LAB CHEMISTRY METHOD 09/09/2024 9:30 PM EST [facility] Blood Venous blood specimen / Unknown Venipuncture / Unknown 09/06/2024 8:47 AM EST 09/06/2024 9:08 AM EST Darci Gamble MD LAB BLOOD ORDERABLES Final Re sult Performing Organization Address [facility] Co de Phone Number [facility] [address] [place] [address], [place] [phone] * Folate (09/06/2024 8:47 AM EST) [facility] Folate 5.4 2.8 - 17.0 ng/ml LAB CHEMISTRY METHOD 09/06/2024 11:20 AM EST [facility] Blood Venous blood specimen / Unknown Venipuncture / Unknown 09/06/2024 8:47 AM EST 09/06/2024 9:07 AM EST Ana Lilia WE[facility]ON LAB BLOOD ORDERABLES Final R esult Performing Organization Address City/[facility]/ZIP Co de Phone Number [facility] [address] [place] [address], [place] [phone] * Ferritin (09/06/2024 8:47 AM EST) Only the most recent of2 resultswithin the time period is included. [facility] Ferritin 17 8 - 252 ng/mL LAB CHEMISTRY METHOD 09/06/2024 11:20 AM [facility] Blood Venous blood specimen / Unknown Venipuncture / Unknown 09/06/2024 8:47 AM EST 09/06/2024 9:07 AM EST us Darci Gamble MD LAB BLOOD ORDERABLES Final Re sult [facility] [address] [place] [address], [place] [phone] * (ABNORMAL) Comprehensive metabolic panel (09/06/2024 8:47 AM EST) [facility] Sodium 141 133 - 145 mmol/L [...] 73m2 LAB CHEMISTRY METHOD 09/06/2024 11:20 AM EST [facility] Comment:Calculation based on the??Chronic Kidney [...] AM EST 09/06/2024 9:07 AM EST us Ana Lilia [facility]ON LAB BLOOD ORDERABLES Final R esult [facility]) [facility] [address] [place] [address], * Vascular US duplex lower extremity venous [...] Signed Date: 09/06/2024 09:02 ET Workstation ID: [id number] Transcribed By: Self Edit Transcribed Date: 09/06/2024 [...] Signed Date: 09/06/2024 09:02 ET Workstation ID: [id number] Transcribed By: Self Edit Transcribed Date: 09/06/2024 09:01 ET us Ana Lilia [facility]ON CV VASCULAR PROCEDURES Final Result * Intrinsic factor blocking antibody (09/02/2024 1:23 PM EST) [facility] Intrinsic Factor Blocking Antibody Negative Negative 09/05/2024 12:40 PM EST [facility] Comment: Positive in 50% of persons with pernicious anemia. Very high serum levels of vitamin B12 may give false positive results for intrinsic factor antibody. ??No sample should be collected from a patient who has received vitamin B12 injection therapy within the past week. Test performed at [facility], [address] [place], [place] ??[address] ? [phone] Ann-Marie Kerr MD, PhD - Lead Based Paint Technician Blood Venous blood specimen / Unknown Venipuncture / Unknown 09/02/2024 1:23 PM EST 09/02/2024 1:37 PM EST Reji Hernandez MD LAB BLOOD ORDERABLES Final R esult [facility] [address] [place] [address] * (ABNORMAL) Vitamin B12 (09/02/2024 1:23 PM EST) [facility] Vitamin B-12 911(H) 250 - 900 pcg/mL LAB CHEMISTRY METHOD 09/02/2024 2:32 PM EST [facility] Blood Venous blood specimen / Unknown Venipuncture / Unknown 09/02/2024 1:23 PM EST 09/02/2024 1:37 PM EST Reji Hernandez MD LAB BLOOD ORDERABLES Final R esult [facility] [address] [place] [address], [place] [phone] * Lipid panel (09/11/2023) [facility] LDL/HDL Ratio 3 0 - 4 Triglycerides 129 0 - 150 mg/dL Cholesterol 159 0 - 200 mg/dL HDL 47 >=40 mg/dL LDL Cholesterol 87 0 - 100 mg/dL Blood Venous blood specimen / Unknown us Historical Provider LAB BLOOD ORDERABLES Sonam l Result from Last 3 Months or Most Recently Relevant to Health Maintenance Insurance [facility] [place] [address] Care Teams Supervisor [employer] Relationship Specialty Start Date End Date Delores Silva MD [address] [place] [address] , [address] [facility] D/B/A: [facility] [place], [place] PCP - General Internal Medicine 02/09/22
== END 2024-11-20 08:51 | disposition home or self-care (01) ==
LOC: HO.HOS 08:33
PROVIDERS: Visit Provider Physician Assistant
DX: M17.0 Bilateral primary osteoarthritis of knee (principal)
CPT/HCPCS: 20610

== ENCOUNTER → 2024-11-20 08:32 | Outpatient (BNVA) | payer OTHER, SELFPAY | PROVIDERS: Visit Provider Physician Assistant | DX: M17.0 Bilateral primary osteoarthritis of knee (principal) | CPT/HCPCS: 20610; J7323 ==

== ENCOUNTER 2024-11-27 08:55 | Outpatient (AMB) | payer OTHER, SELFPAY ==
--- NOTE | 2024-11-27 09:04 | A.OFFVIS_ITS ---
Intake Visit Reasons: INJ- B/L knee Euflexxa #2 Intake Note: Diane is a 39 year old female who presents today for bilateral knee Euflexxa injections #2. Allergies metformin [METFORMIN] Allergy (Intermediate, Verified 11/20/24 08:46) INFLAMMED GUMS, red gums, redness of gums doxycycline Adverse Reaction (Intermediate, Verified 11/20/24 08:46) Itching HPI HPI INJ- B/L knee Euflexxa #2: Details: 38-year-old female presents to the office today for bilateral knee Euflexxa injection#2. She has no concerns today. She tolerated previous injection well [facility] Medical History Osteoarthritis of knees, bilateral Hyperparathyroidism Vaginal discharge Physical exam Open wound of thumb Lupus Mild recurrent major depression Morbid obesity with BMI of 40.0-44.9, adult Vitamin D deficiency BMI 38.0-38.9,adult Intestinal malabsorption following gastrectomy Preeclampsia Obesity (BMI 30-39.9) Knee pain Hypertension Depression Proteinuria Autoimmune thyroiditis SLE (systemic lupus erythematosus related syndrome) Surgical History History of foot surgery History of open reduction and internal fixation (ORIF) procedure History of sleeve gastrectomy Status post biopsy of kidney Family History Father Asthma Mother No problems noted. Brother No problems noted. Brother No problems noted. Sister No problems noted. Social History Housing: Apartment Alcohol intake: never Patient Tobacco Use Status: Never used Tobacco e-Cigarette/Vaping Use: Never Used Second Hand Smoke Exposure: No service: No Current occupational status: unemployed Current occupational exposures/hazards: No Cognitive needs: No Hearing needs: No Vision needs: No Female Reproductive History Menstrual Age of Menarche: 11 Review of Systems Const All systems reviewed & are unremarkable except as noted in HPI and below Physical Exam Extrem Other: Left knee skin intact, no erythema or joint effusion. Tenderness along the medial joint line. ROM full with crepitus. Negative steinmans. No ligamentous laxity. NVI. Right knee skin intact, no erythema or joint effusion. Tenderness along the medial joint line. ROM full with crepitus. Negative steinmans. No ligamentous laxity. NVI. Office Procedures AMB Joint Injection/Aspiration Joint Injection/Aspiration Details: #2 euflexxa Primary Site: right knee Secondary Site: left knee Prep: site was prepped using aseptic technique, ethochloride spray was applied and injection warnings given Injected: in the joint Approach Used: anterolateral Procedure: The patient tolerated the procedure well Coding 24412 - Glenohumeral/Tronchanteric Bursa/Intraarticular Procedure code (CPT) selection complete Assessment & Plan Assessment & Plan (1) Osteoarthritis of knees, bilateral: Code(s): M17.0 - Bilateral primary osteoarthritis of knee Category: Medical Qualifiers: Osteoarthritis type: primary Qualified Code(s): M17.0 - Bilateral primary osteoarthritis of knee Plan: Plan was to proceed with gel injection today. #2 euflexxa Injection performed today which the patient tolerated well. She will rest ice and use anti- inflammatories as needed for the next several days. I will see her back in 1 week for injection number 3 Coding Level of Care Code Procedure Only Diagnoses Primary osteoarthritis of both knees M17.0 Osteoarthritis type: primary CPT Codes Coding - Joint 7: 85444 - Glenohumeral/Tronchanteric Bursa/Intraarticular ([id number])
--- OUTSIDE RECORDS SUMMARY | 2024-11-27 10:11 | XMS_ITS | Clinical Summary ---
Author Organization [employer] Address [address] [place] [address] [address] [place] [address] Care Team Providers Care Hub Borer Name Role Phone Unavailable Primary Care Provider [...] 1983 Lipid Panel 1983 SDOH Screening 1983 Disability Screening 1983 Alcohol/Substance Use Screening 1995 Tobacco Screening 1995 Family Planning (PISQ) 11/24/1998 Hepatitis C Screening 11/24/2001 Pap Smear 11/24/2004 HPV Vaccines (2 - 3-dose series) 2009 10/28/2009 Cervical Cancer Screening 11/24/2013 HPV/Cotest 11/24/2013 Mammogram 2023 COVID-19 Vaccine ( season) 2024 10/04/2022, 06/18/2021, 10/18/2020, Additional history exists Influenza Vaccine (#1) 2024 2, 05/12/2021, 05/05/2020, Additional history exists DTaP/Tdap/Td Vaccines [...] patient's age to complete this topic Insurance [address] [address] ACO
--- OUTSIDE RECORDS SUMMARY | 2024-11-27 10:11 | XMS_ITS | Encounter Summary ---
Author Organization [facility] Address [address] [place] [address] Care Team Providers Care Wind Turbine Engineer Name Role Phone Delores Silva MD Primary Care Provider [phone] Encounter Details Date Type Department Care Team [...] AM EDT Office Visit Bariatric Surgery - [place] [address] [place] [address] Ana Lilia Bruce PA [address] [place] [address] documented as of this encounter Visit Diagnoses Not on filedocumented in this encounter Care Teams Wind Turbine Engineer Relationship Specialty Start Date End Date Delores Silva MD [address] [facility] , [address] [facility] D/B/A: [facility] [place] PCP - General Internal Medicine 02/09/22 documented as of this encounter
--- OUTSIDE RECORDS SUMMARY | 2024-11-27 10:11 | XMS_ITS | Data Portability ---
Author Organization [facility] [address] Address [address] [place] [id number] Assessment No assessment recorded. Plan of Treatment Reminders Order Date Submit Date Provider Last Modified By Organization Details Last Modified Time Details Appointments None recorded. Lab None recorded. Referral None recorded. Procedures None recorded. Surgeries None recorded. Imaging None recorded. Medication Orders mupirocin 2 % topical ointment 2023 024 [id number], [address] [place], [address], 4 18:36:48 cephalexin 500 mg capsule 2023 024 [id number], [address] [place], [address], 4 18:36:48 Patient TargetsNo targets recorded. Patient InstructionsNo instructions recorded. Reason for Referral None Reported. Problems Name Problem SNOMED Code Status Onset Date Resolution Date Notes Provider Name and Address Organization Details Recorded Time Lupus erythematosus 230696562 Active 2023 Melody Palmer null, [place] - [facility] 17:11:28 Depressive disorder 11963037 Active 2023 Melody Palmer null, [place] - [facility] 17:11:43 Anxiety 70011686 Active 2023 Melody Palmer null, [place] - [facility] 17:11:52 Problem Notes None recorded. Medical Equipment None Reported. Allergies Allergen ID Allergen Name Allergen Category Reaction Reaction Severity Criticality Documentation Date Start Date Code Code System Note Provider Name and Address Organization Details Recorded Time 787466 metformin medicatio n hives mild Not available [...] Updated DateTime 4 162.56 cm 45.3 kg/m2 322777. 39 g 97.7 [degF] 18 /min 100 % 100 % 72 /min 146 mm[Hg] 88 mm[Hg] Melody Chakraborty PA - [facility] 17:15:27 Social History Question Answer Notes LastModified by [employer] Details LastModified Time Tobacco Smoking Status Never Smoker Melody schrader PA - [facility] 10/07/2023 17:12:27 Have [...] SNOMED-CT Code Diagnosis ICD10 Code Diagnosis [place] [id number] [place] [address] [place] [address] 10/07/2023 16:55:57 10/07/2023 17:37:11 Impetigo 10997644 L01.00 Impetigo (say im-puh-TY -go ) is [...] you can use an alcohol-ba sed hand freight separator. Don't share items such as towels, sheets, [...] ID Guarantor Name 10/07/2023 1 [facility] PLAN (MEDICAID HMO) MISTY Vides [id number] Diane Vides 10/07/2023 1 [facility] PL[facility] - [facility] (MEDICAID REPLACEMENT - HMO) Diane Vides [id number] Diane Vides 10/07/2023 2 [place]: [facility] Diane Vides [id number] Diane Vides Notes Date Note Type Note [...] no fatigue Treatment History:no history of treatment rEic Coto NP [address] [place], [address], [place] - [facility] 10/07/2023 18:36:57 OBGyn Episode No OBEpisode recorded.
--- OUTSIDE RECORDS SUMMARY | 2024-11-27 10:11 | XMS_ITS | Clinical Summary ---
Author Organization [facility] Address [address] [place] [address] Care Team Providers Care Galvanizer Name Role Phone Delores Mancia MD Primary [...] age to complete this topic Care Teams Galvanizer Relationship Specialty Start Date End Date Delores Mancia MD [address] [facility] , [address] [facility] D/B/A[facility] [place] [address] PCP - General Internal Medicine 12/13/23
--- OUTSIDE RECORDS SUMMARY | 2024-11-27 10:12 | XMS_ITS | Clinical Summary ---
Author Organization [facility] Address [address] [place] [address] Phone Care Team Providers Care Gang Pusher Name Role Phone Delores Silva MD Primary Care Provider [phone] Allergies Active Allergy Reactions Criticality Noted Date [...] Morbid (severe) obesity due to excess calories ([facility] V24, [facility] V28) 06/18/2024 Class 3 severe obesity with body mass index (BMI) of 40.0 to 44.9 in adult ([facility] V24, [facility] V28) 04/12/2024 Absolute anemia 03/22/2024 Encounters Date Type Department Care Team Description 09/30/2024 Telephone [facility] [address] [facility] [address] [place] [phone] Sharri Shipman RN 09/23/2024 11:30 AM EDT Office Visit Bariatric Surgery - [place] [address] [facility] [address] [place] [phone] Ana Lilia Bruce PA Class 3 severe obesity due to excess calories with serious comorbidity and body mass index (BMI) of 40.0 to 44.9 in adult ([facility] V24, [facility] V28) (Primary Dx); Bariatric surgery status 09/09/2024 10:00 AM EST Office Visit [facility] H[facility] [address] [place] [phone] Reji Hernandez MD Anemia, unspecified type (Primary Dx); Bariatric surgery status 09/06/2024 7:50 AM EST - 09/06/2024 11:59 PM EST Hospital Encounter [facility] Ultras[facility] [address] [place] [address] Bilateral edema of lower extremity Discharge Disposition: Home or Self Care 09/05/2024 11:15 AM EST Office Visit Bariatric Surgery - [place] [address] [phone] Ana Lilia Bruce PA Class 3 severe obesity due to excess calories with serious comorbidity and body mass index (BMI) of 40.0 to 44.9 in adult (CMS/HCC V24, [facility] V28) (Primary Dx); Bilateral edema of lower extremity; Bariatric surgery status 09/05/2024 Telephone Bariatric Surgery - [place] [address] [phone] Ana Lilia Bruce PA 09/02/2024 1:28 PM EST - 09/02/2024 11:59 PM EST Hospital Encounter [facility] [address] [facility] [place] [place] [address] Reji Hernandez MD Anemia due to vitamin B12 deficiency, unspecified B12 deficiency type (Primary Dx) Discharge Disposition: Home or Self Care from [...] AM EDT Office Visit Bariatric Surgery [place] [address] [phone] Ana Lilia Bruce PA [address] [address] Health Maintenance Due Date Last Done Comments [...] this topic Medical Devices Implanted Type Area Parenting Skills Instructor Device Identifier Shelf Expiration Date Model / Serial / Lot Bone Pin Right: Hip Procedures Procedure Name Priority Date/Time Associated Diagnosis Comments URINALYSIS WITH REFLEX MICROSCOPIC Routine 09/06/2024 9:21 AM EST Chronic kidney disease (CKD) stage G3a/A1, moderately decreased glomerular filtration rate (GFR) between 45-59 mL/min/1.73 square meter and albuminuria creatinine ratio les* (CMS/HCC V24, CMS/HCC V28) Proteinuria Anemia, unspecified URINALYSIS WITH REFLEX [...] reflex microscopic (09/06/2024 9:21 AM EST) Specific [place] Urine 1.015 1.003 - 1.030 LAB URINALYSIS - AUTOMATED METHOD 09/06/2024 10:35 AM [facility] pH, Urine 5.5 5.0 - 8.0 pH LAB URINALYSIS - AUTOMATED METHOD 09/06/2024 10:35 AM [facility] Leukocytes, Urine Small(A) Negative LAB URINALYSIS - AUTOMATED METHOD 09/06/2024 10:35 AM [facility] Nitrite, Urine Negative Negative LAB URINALYSIS - AUTOMATED METHOD 09/06/2024 10:35 AM [facility] Protein, Urine 30(A) <=Trace mg/dL LAB URINALYSIS - AUTOMATED METHOD 09/06/2024 10:35 AM [facility] Glucose, Urine Negative Negative mg/dL LAB URINALYSIS - AUTOMATED METHOD 09/06/2024 10:35 AM [facility] Ketones, Urine Negative Negative mg/dL LAB URINALYSIS - AUTOMATED METHOD 09/06/2024 10:35 AM [facility] Urobilinogen, Urine 0.2 0.2 - 1.0 mg/dL LAB URINALYSIS - AUTOMATED METHOD 09/06/2024 10:35 AM [facility] Bilirubin, Urine Negative Negative LAB URINALYSIS - AUTOMATED METHOD 09/06/2024 10:35 AM [facility] Blood, Urine Negative Negative LAB URINALYSIS - AUTOMATED METHOD 09/06/2024 10:35 AM [facility] RBC, Urine 3.4 0 - 4 /HPF LAB URINALYSIS - AUTOMATED METHOD 09/06/2024 10:35 AM [facility] WBC, Urine 40.4(H) 0 - 4 /HPF LAB URINALYSIS - AUTOMATED METHOD 09/06/2024 10:35 AM [facility] Squamous Epithelial, Urine >100(H) 0 - 60 /LPF LAB URINALYSIS - AUTOMATED METHOD 09/06/2024 10:35 AM [facility] Bacteria, Urine Negative Negative /HPF LAB URINALYSIS - AUTOMATED METHOD 09/06/2024 10:35 AM [facility] Hyaline Casts, Urine 1.6 0 - 3 /LPF LAB URINALYSIS - AUTOMATED METHOD 09/06/2024 10:35 AM [facility] Urine Urine specimen obtained by clean catch procedure / Unknown Non-blood Collection / Unknown 09/06/2024 9:21 AM EST 09/06/2024 10:22 AM EST Darci Gamble MD LAB URINE ORDERABLES Final Re sult Performing Organization Address [facility]/ZIP Co de Phone Number [facility] [address] [place] [address], [place] [phone] * (ABNORMAL) Microalbumin creatinine urine ratio (09/06/2024 9:21 AM EST) Creatinine, Urine 129.0 mg/dL LAB CHEMISTRY METHOD 09/06/2024 12:09 PM EST [facility] Microalb, Ur 147.0(H) 0.0 - 29.0 mg/L LAB CHEMISTRY METHOD 09/06/2024 12:09 PM EST [facility] Microalb/Crea t Ratio 114(H) <30 mg/g creat LAB CHEMISTRY METHOD 09/06/2024 12:09 PM EST [facility] Urine Urine specimen obtained by clean catch procedure / Unknown Non-blood Collection / Unknown 09/06/2024 9:21 AM EST 09/06/2024 10:22 AM EST Darci Gamble MD LAB URINE ORDERABLES Final Re sult Performing Organization Address [facility]/ZIP Co de Phone Number [facility] [address] [place] [address], [place] [phone] * , urine (09/06/2024 9:21 AM EST) Preg Test, Ur Negative Negative 09/06/2024 10:30 AM EST [facility] Urine Urine specimen obtained by clean catch procedure / Unknown Non-blood Collection / Unknown 09/06/2024 9:21 AM EST 09/06/2024 10:22 AM EST Ana Lilia WESTON LAB URINE ORDERABLES Final R esult Performing Organization Address City/[facility]/ZIP Co de Phone Number [facility] [address] [place] [address], [place] [phone] * Culture urine (09/06/2024 9:21 AM EST) Pathologist [facility] [place] Culture, Urine 50,000-99,000 CFU/mL Mixed urogenital bela, no uropathogens present. Suggest repeat specimen if clinically indicated. 09/08/2024 12:56 PM EST [facility] Urine Urine specimen obtained by clean catch procedure / Unknown Non-blood Collection / Unknown 09/06/2024 9:21 AM EST 09/06/2024 10:21 AM EST Darci Gamble MD LAB MICROBIOLOGY - GENERAL OR DERABLES Final Result [facility] [address] [place] [address], [place] [phone] * (ABNORMAL) CBC auto differential (09/06/2024 8:47 AM EST) Only the most recent of2 resultswithin the time period is included. Pathologist [facility] [place] WBC 5.3 4.8 - 10.8 K/mcL LAB HEMETOLOGY METHOD 09/06/2024 9:59 AM [facility] RBC 3.90 3.80 - 4.80 M/mcL LAB HEMETOLOGY METHOD 09/06/2024 9:59 AM [facility] Hemoglobin 11.7 11.5 - 16.0 g/dL LAB HEMETOLOGY METHOD 09/06/2024 9:59 AM [facility] Hematocrit 34.1(L) 35.0 - 47.0 % LAB HEMETOLOGY METHOD 09/06/2024 9:59 AM [facility] MCV 87.9 79.0 - 98.0 FL LAB HEMETOLOGY METHOD 09/06/2024 9:59 AM [facility] MCH 30.2 27.0 - 32.0 pcg LAB HEMETOLOGY METHOD 09/06/2024 9:59 AM [facility] MCHC 34.3 32.0 - 37.0 g/dL LAB HEMETOLOGY METHOD 09/06/2024 9:59 AM [facility] RDW 16.0(H) 11.0 - 15.0 % LAB HEMETOLOGY METHOD 09/06/2024 9:59 AM [facility] Platelets 238 130 - 400 K/mcL LAB HEMETOLOGY METHOD 09/06/2024 9:59 AM [facility] MPV 11.7(H) 7.0 - 11.0 FL LAB HEMETOLOGY METHOD 09/06/2024 9:59 AM [facility] NRBC 0.0 <1.0 % LAB HEMETOLOGY METHOD 09/06/2024 9:59 AM [facility] NRBC Absolute 0.00 <0.10 K/mcL LAB HEMETOLOGY METHOD 09/06/2024 9:59 AM [facility] Neutrophils Relative 70.9 % LAB HEMETOLOGY METHOD 09/06/2024 9:59 AM [facility] Lymphocytes Relative 18.7 % LAB HEMETOLOGY METHOD 09/06/2024 9:59 AM [facility] Monocytes Relative 6.9 % LAB HEMETOLOGY METHOD 09/06/2024 9:59 AM [facility] Eosinophils Relative 2.2 % LAB HEMETOLOGY METHOD 09/06/2024 9:59 AM [facility] Basophils Relative 0.7 % LAB HEMETOLOGY METHOD 09/06/2024 9:59 AM [facility] Immature Granulocytes Relative 0.6 % LAB HEMETOLOGY METHOD 09/06/2024 9:59 AM [facility] Neutrophils Absolute 3.78 1.50 - 7.00 K/mcL LAB HEMETOLOGY METHOD 09/06/2024 9:59 AM EST [facility] Lymphocytes Absolute 1.00 1.00 - 5.00 K/mcL LAB HEMETOLOGY METHOD 09/06/2024 9:59 AM EST [facility] Monocytes Absolute 0.37 0.20 - 1.00 K/mcL LAB HEMETOLOGY METHOD 09/06/2024 9:59 AM [facility] Eosinophils Absolute 0.12 0.00 - 0.50 K/mcL LAB HEMETOLOGY METHOD 09/06/2024 9:59 AM [facility] Basophils Absolute 0.04 0.00 - 0.20 K/mcL LAB HEMETOLOGY METHOD 09/06/2024 9:59 AM [facility] Immature Granulocytes Absolute 0.03 0.00 - 0.03 K/mcL LAB HEMETOLOGY METHOD 09/06/2024 9:59 AM [facility] Blood Venous blood specimen / Unknown Venipuncture / Unknown 09/06/2024 8:47 AM EST 09/06/2024 9:08 AM EST Darci Gamble MD LAB BLOOD ORDERABLES Final Re sult [facility] [address] [place] [address], * (ABNORMAL) Iron and TIBC (09/06/2024 8:47 AM EST) Only the most recent of2 resultswithin the time period is included. Iron 46 40 - 150 mcg/dL LAB CHEMISTRY METHOD 09/06/2024 10:20 AM [facility] TIBC 188(L) 250 - 450 mcg/dL LAB CHEMISTRY METHOD 09/06/2024 10:20 AM [facility] Iron Saturation 24 15 - 50 % LAB CHEMISTRY METHOD 09/06/2024 10:20 AM [facility] Blood Venous blood specimen / Unknown Venipuncture / Unknown 09/06/2024 8:47 AM EST 09/06/2024 9:07 AM EST Darci Gamble MD LAB BLOOD ORDERABLES Final Re sult Performing Organization Address [facility]/ZIP Co de Phone Number [facility] [address] [place] [address], * Zinc (09/06/2024 8:47 AM EST) Zinc 68 60 - 130 ug/dL 09/09/2024 2:57 PM EST [facility] Comment: Elevated results may be due to sample collected in a non-certified trace element-free tube. This test was developed and the performance characteristics determined by [facility]. It has not been cleared or approved by the FDA. The laboratory is regulated under CLIA as qualified to perform high-complexity testing. This test is used for patient testing purposes. It should not be regarded as investigational or for research. Test performed at [facility], [address] [place], [place] ??[address] ? [phone] Ann-Marie Kerr MD, PhD - Stave Hewer Blood Venous blood specimen / Unknown Venipuncture / Unknown 09/06/2024 8:47 AM EST 09/06/2024 9:08 AM EST Ana Lilia WESTON LAB BLOOD ORDERABLES Final R esult Performing Organization Address City/[facility]/ZIP Co de Phone Number [facility] [address] [place] [address] * Selenium serum (09/06/2024 8:47 AM EST) Selenium 109 63 - 160 mcg/L 09/11/2024 7:46 PM EST [facility] Comment: This test was developed and its analytical performance characteristics have been determined by [facility] [place], [place]. It has not been cleared or approved by the U.S. Food and Drug Administration. This assay has been validated pursuant to the CLIA regulations and is used for clinical purposes. Test Performed by [facility], [facility], [address] [place], [place] Edgard Dejesus M.D., Ph.D., Director of Laboratories , CLIA [id number] Blood Venous blood specimen / Unknown Venipuncture / Unknown 09/06/2024 8:47 AM EST 09/06/2024 9:08 AM EST Ana Lilia WESTON LAB BLOOD ORDERABLES Final R esult [facility] [address] [place] [address] * Vitamin D 25 hydroxy (09/06/2024 8:47 AM EST) [facility] Vit D, 25-Hydroxy 36.4 30.0 - 80.0 ng/mL LAB CHEMISTRY METHOD 09/06/2024 12:07 PM EST [facility] Blood Venous blood specimen / Unknown Venipuncture / Unknown 09/06/2024 8:47 AM EST 09/06/2024 9:07 AM EST Ana Lilia WESTON LAB BLOOD ORDERABLES Final R esult Performing Organization Address City/[facility]/ZIP Co de Phone Number [facility] [address] [place] [address], [place] [phone] * Vitamin B1 (09/06/2024 8:47 AM EST) Pathologist [facility] [place] Vitamin B1 Whole Blood 43 38 - 122 ug/L 09/11/2024 9:51 AM EST [facility] Comment: This test was developed and the performance characteristics determined by [facility]. It has not been cleared or approved by the FDA. The laboratory is regulated under CLIA as qualified to perform high-complexity testing. This test is used for patient testing purposes. It should not be regarded as investigational or for research. Test performed at [facility], [address] [place], [place] ??[address] ? [phone] Ann-Marie Kerr MD, PhD - Stave Hewer Blood Venous blood specimen / Unknown Venipuncture / Unknown 09/06/2024 8:47 AM EST 09/06/2024 9:08 AM EST Ana Lilia WESTON LAB BLOOD ORDERABLES Final R esult Performing Organization Address City/[facility]/ZIP Co de Phone Number [facility] [address] [place] [address] * (ABNORMAL) Vitamin B6 (09/06/2024 8:47 AM EST) Pathologist [facility] [place] Vitamin B6 (Pyridoxine) Level 2(L) 5 - 50 ug/L 09/10/2024 11:37 AM EST [facility] Comment: This test was developed and the performance characteristics determined by [facility]. It has not been cleared or approved by the FDA. The laboratory is regulated under CLIA as qualified to perform high-complexity testing. This test is used for patient testing purposes. It should not be regarded as investigational or for research. Test performed at [facility], [address] [place], [place] [address] ? [phone] Ann-Marie Kerr MD, PhD - Stave Hewer Blood Venous blood specimen / Unknown Venipuncture / Unknown 09/06/2024 8:47 AM EST 09/06/2024 9:16 AM EST us Ana Lilia WESTON LAB BLOOD ORDERABLES Final R esult [facility] [address] [place] [address] * Prealbumin (09/06/2024 8:47 AM EST) Pathologist [facility] [place] Prealbumin 22 18 - 45 mg/dL LAB CHEMISTRY METHOD 09/06/2024 11:20 AM EST [facility] Blood Venous blood specimen / Unknown Venipuncture / Unknown 09/06/2024 8:47 AM EST 09/06/2024 9:07 AM EST Ana Lilia WESTON LAB BLOOD ORDERABLES Final R esult Performing Organization Address [facility]/ZIP Co de Phone Number [facility] [address] [place] [address], [place] [phone] * Phosphorus (09/06/2024 8:47 AM EST) Phosphorus 2.7 2.5 - 4.5 mg/dL LAB CHEMISTRY METHOD 09/06/2024 11:20 AM EST [facility] Blood Venous blood specimen / Unknown Venipuncture / Unknown 09/06/2024 8:47 AM EST 09/06/2024 9:07 AM EST Darci Gamble MD LAB BLOOD ORDERABLES Final Re sult Performing Organization Address City/[facility]/ZIP Co de Phone Number [facility] [address] [place] [address], [place] [phone] * (ABNORMAL) Parathyroid hormone intact (09/06/2024 8:47 AM EST) [facility] PTH 129.2(H) 18.5 - 88.0 pcg/mL LAB CHEMISTRY METHOD 09/06/2024 12:07 PM EST [facility] Blood Venous blood specimen / Unknown Venipuncture / Unknown 09/06/2024 8:47 AM EST 09/06/2024 9:07 AM EST us Darci Gamble MD LAB BLOOD ORDERABLES Final Re sult [facility] [address] [place] [address], [place] [phone] * Hemoglobin A1c (09/06/2024 8:47 AM EST) Hemoglobin A1C 4.9 <6.5 % LAB CHEMISTRY METHOD 09/09/2024 9:30 PM EST [facility] Mean Bld Glu Estim. 94 mg/dL LAB CHEMISTRY METHOD 09/09/2024 9:30 PM EST [facility] Blood Venous blood specimen / Unknown Venipuncture / Unknown 09/06/2024 8:47 AM EST 09/06/2024 9:08 AM EST Darci Gamble MD LAB BLOOD ORDERABLES Final Re sult [facility] [address] [place] [address], [place] [phone] * Folate (09/06/2024 8:47 AM EST) [facility] Folate 5.4 2.8 - 17.0 ng/ml LAB CHEMISTRY METHOD 09/06/2024 11:20 AM EST [facility] Blood Venous blood specimen / Unknown Venipuncture / Unknown 09/06/2024 8:47 AM EST 09/06/2024 9:07 AM EST Ana Lilia WESTON LAB BLOOD ORDERABLES Final R esult [facility] [address] [place] [address], [place] [phone] * Ferritin (09/06/2024 8:47 AM EST) Only the most recent of2 resultswithin the time period is included. [facility] Ferritin 17 8 - 252 ng/mL LAB CHEMISTRY METHOD 09/06/2024 11:20 AM EST [facility] Blood Venous blood specimen / Unknown Venipuncture / Unknown 09/06/2024 8:47 AM EST 09/06/2024 9:07 AM EST Darci Gamble MD LAB BLOOD ORDERABLES Final Re sult [facility] [address] [place] [address], * (ABNORMAL) Comprehensive metabolic panel (09/06/2024 8:47 AM EST) Sodium 141 133 - 145 mmol/L LAB CHEMISTRY METHOD 09/06/2024 11:20 AM [facility] Potassium 3.8 3.5 - 5.5 mmol/L LAB CHEMISTRY METHOD 09/06/2024 11:20 AM [facility] Chloride 110 96 - 110 mmol/L LAB CHEMISTRY METHOD 09/06/2024 11:20 AM [facility] CO2 26 21 - 32 mmol/L LAB CHEMISTRY METHOD 09/06/2024 11:20 AM [facility] Anion Gap 5 3 - 11 LAB CHEMISTRY METHOD 09/06/2024 11:20 AM [facility] Glucose 82 70 - 100 mg/dL LAB CHEMISTRY METHOD 09/06/2024 11:20 AM [facility] BUN 12 5 - 25 mg/dL LAB CHEMISTRY METHOD 09/06/2024 11:20 AM [facility] Creatinine 1.05 0.50 - 1.10 mg/dL LAB CHEMISTRY METHOD 09/06/2024 11:20 AM [facility] eGFR 69 >=60 mL/min/1. 73m2 LAB CHEMISTRY METHOD 09/06/2024 11:20 AM [facility] Comment:Calculation based on the??Chronic Kidney Disease Epidemiology Collaboration (CKD-EPI) equation refit??without adjustment for race. BUN/Creatinine Ratio 11.4 LAB CHEMISTRY METHOD 09/06/2024 11:20 AM [facility] Calcium 8.8 8.5 - 10.5 mg/dL LAB CHEMISTRY METHOD 09/06/2024 11:20 AM [facility] AST (SGOT) 14 10 - 42 unit/L LAB CHEMISTRY METHOD 09/06/2024 11:20 AM [facility] ALT (SGPT) 22 10 - 60 unit/L LAB CHEMISTRY METHOD 09/06/2024 11:20 AM [facility] Alkaline Phosphatase 95 42 - 121 unit/L LAB CHEMISTRY METHOD 09/06/2024 11:20 AM [facility] Total Protein 5.7(L) 6.0 - 8.0 g/dL LAB CHEMISTRY METHOD 09/06/2024 11:20 AM [facility] Albumin 2.8(L) 3.2 - 5.0 g/dL LAB CHEMISTRY METHOD 09/06/2024 11:20 AM [facility] Total Bilirubin 0.4 0.0 - 1.4 mg/dL LAB CHEMISTRY METHOD 09/06/2024 11:20 AM [facility] Blood Venous blood specimen / Unknown Venipuncture / Unknown 09/06/2024 8:47 AM EST 09/06/2024 9:07 AM EST us Ana Lilia WESTON LAB BLOOD ORDERABLES Final R esult [facility] [address] [place] [address], * Vascular US duplex lower extremity venous [...] Signed Date: 09/06/2024 09:02 ET Workstation ID: [id number] Transcribed By: Self Edit Transcribed Date: 09/06/2024 [...] Signed Date: 09/06/2024 09:02 ET Workstation ID: [id number] Transcribed By: Self Edit Transcribed Date: 09/06/2024 09:01 ET us Ana Lilia WESTON CV VASCULAR PROCEDURES Final Result * Intrinsic factor blocking antibody (09/02/2024 1:23 PM EST) Pathologist [facility] [place] Intrinsic Factor Blocking Antibody Negative Negative 09/05/2024 12:40 PM EST [facility] Comment: Positive in 50% of persons with pernicious anemia. Very high serum levels of vitamin B12 may give false positive results for intrinsic factor antibody. ??No sample should be collected from a patient who has received vitamin B12 injection therapy within the past week. Test performed at [facility], [address], [place], [place] ??[address] ? [phone] Ann-Marie Kerr MD, PhD - Stave Hewer Blood Venous blood specimen / Unknown Venipuncture / Unknown 09/02/2024 1:23 PM EST 09/02/2024 1:37 PM EST Reji Hernandez MD LAB BLOOD ORDERABLES Final R esult [facility] [address] [place] [address] * (ABNORMAL) Vitamin B12 (09/02/2024 1:23 PM EST) Pathologist [facility] [place] Vitamin B-12 911(H) 250 - 900 pcg/mL LAB CHEMISTRY METHOD 09/02/2024 2:32 PM EST [facility] Blood Venous blood specimen / Unknown Venipuncture / Unknown 09/02/2024 1:23 PM EST 09/02/2024 1:37 PM EST Reji Hernandez MD LAB BLOOD ORDERABLES Final R esult Performing Organization Address City/[facility]/ZIP Co de Phone Number [facility] [address] [place] [address], [place] [phone] * Lipid panel (09/11/2023) Pathologist [facility] [place] LDL/HDL Ratio 3 0 - 4 Triglycerides 129 0 - 150 mg/dL Cholesterol 159 0 - 200 mg/dL HDL 47 >=40 mg/dL LDL Cholesterol 87 0 - 100 mg/dL Blood Venous blood specimen / Unknown Veronica Provider LAB BLOOD ORDERABLES Sonam l Result from Last 3 Months or Most Recently Relevant to Health Maintenance Insurance [facility] Care Teams Gang Pusher Relationship Specialty Start Date End Date Delores Silva MD 2 [facility] , [address] Physician Associ D/B/A: [facility] [employer] [place] PCP - General Internal Medicine 02/09/22
--- OUTSIDE RECORDS SUMMARY | 2024-11-27 10:12 | XMS_ITS | Clinical Summary ---
Author Organization [facility] Facility Address [address] [place] [id number] Care Team Providers Care Finish Opener Name Role Phone Delores Mancia MD Primary [...] Office Visit [facility] [address] [place] [address] Darci Gamble MD Proteinuria, not otherwise specified (Primary Dx); Chronic kidney disease, stage 2 (mild) 10/03/2024 Orders Only [facility] [address] [address] Darci Gamble MD 09/30/2024 Orders Only [facility] [address] [address] Darci Gamble MD Chronic kidney disease, stage 2 (mild); Persistent proteinuria 09/16/2024 Refill [facility] [address] [place] [address] Darci Gamble MD Persistent proteinuria; Chronic kidney disease stage 1 09/12/2024 9:45 AM EST Telemedicine [facility] [place] [address] [place] [phone] Darci Gamble MD Chronic kidney disease, stage 2 (mild) (Primary Dx); Persistent proteinuria 09/06/2024 Orders Only [facility] [address] [facility] [address] [place] [phone] Darci Gamble MD from Last 3 Months [...] [facility] [address] [place] [address] Darci Gamble MD [address] [facility] [address] [place] [address] Health Maintenance Due Date Last [...] MD LAB BLOOD ORDERABLES Final Re sult [place] See order comments [place] [address] * (ABNORMAL) Uric acid (10/03/2024 9:48 AM EDT) Uric Acid 6.4(H) 2.4 - 5.7 mg/dL See order comments Blood specimen (specimen) Venous blood / Unknown 10/03/2024 9:48 AM EDT 10/03/2024 9:48 AM EDT us Darci Gamble MD LAB BLOOD ORDERABLES Final Re sult Performing Organization Address [facility] Phone Number [place] See order comments [place] [address] * BUN (10/03/2024 9:48 AM EDT) BUN 10 9 - 16 mg/dL See order comments 10/03/2024 9:48 AM EDT 10/03/2024 9:48 AM EDT us Darci Gamble MD LAB BLOOD ORDERABLES Final Re sult Performing Organization Address [facility] Phone Number [place] See order comments [place] [address] * Calcium (10/03/2024 9:48 AM EDT) Calcium 8.8 8.4 - 10.2 mg/dL See order comments 10/03/2024 9:48 AM EDT 10/03/2024 9:48 AM EDT us Darci Gamble MD LAB BLOOD ORDERABLES Final Re sult Performing Organization Address [facility] Phone Number [place] See order comments [place] [address] * (ABNORMAL) Electrolyte panel (10/03/2024 9:48 AM [...] MD LAB BLOOD ORDERABLES Final Re sult [place] See order comments [place] [address] * (ABNORMAL) Urine Albumin / Creatinine Ratio (09/06/2024 9:21 AM EST) Creatinine, Urine 129.0 mg/dL [facility] Microalbumin Urine Random 147.0(H) 0.0 - 29.0 mg/L [facility] Microalbumin/Cre atinine Ratio 114(H) <30 mg/g creat [facility] 09/06/2024 9:21 AM EST 09/06/2024 10:22 AM EST us Darci Gamble MD LAB URINE ORDERABLES Final Re sult Performing Organization Address [facility] Co de Phone Number [facility] [address] [place] [address] * (ABNORMAL) Urinalysis Reflex Microscopic (09/06/2024 9:21 AM EST) Pathologist [facility] Specific [place] 1.015 1.003 - 1.030 [facility] Bilirubin Urine Negative Negative [facility] Blood Urine Negative Negative [facility] [...] ORDERABLES Final Re sult Performing Organization Address [facility]/ZIP Co de Phone Number [facility] [address] [place] [address] * Urine Culture (09/06/2024 9:21 AM EST) Culture Result, Urine 50,000-99,000 CFU/mL Mixed urogenital bela, no uropathogens present. Suggest repeat specimen if clinically indicated. [facility] 09/06/2024 9:21 AM EST 09/06/2024 10:21 AM EST Darci Gamble MD LAB URINE ORDERABLES Final Re sult Performing Organization Address [facility]/ZIP Co de Phone Number [facility] [address] [place] [address] * (ABNORMAL) Iron Panel (09/06/2024 8:47 AM EST) Iron 46 40 - 150 mcg/dL [facility] TIBC 188(L) 250 - 450 mcg/dL [facility] Iron Saturation (TSat) 24 15 - 50 % [facility] 09/06/2024 8:47 AM EST 09/06/2024 9:07 AM EST us Darci Gamble MD LAB [id number] SOLICITED RESULTS Final Result [facility] [address] [place] [address] * (ABNORMAL) CBC auto differential (09/06/2024 8:47 AM EST) WBC 5.3 4.8 - 10.8 [facility] RBC 3.90 3.80 - 4.80 M/[facility] Hgb 11.7 11.5 - 16.0 g/dL [facility] Hematocrit 34.1(L) 35.0 - 47.0 % [facility] MCV 87.9 79.0 - 98.0 [facility] MCH 30.2 27.0 - 32.0 pcg [facility] MCHC 34.3 32.0 - 37.0 g/dL [facility] RDW 16.0(H) 11.0 - 15.0 % [facility] Platelets 238 130 - 400 [facility] MPV 11.7(H) 7.0 - 11.0 [facility] nRBC Count 0.0 <1.0 % [facility] NRBC Absolute 0.00 <0.10 [facility] Bands Relative 70.9 % [facility] Lymphocyte Realative Percent 18.7 % [facility] Monocyte Relative Percent 6.9 % [facility] Eosinophil Relative Percent 2.2 % [facility] Basophils Relative Diff 0.7 % [facility] Immature Granulocytes 0.6 % [facility] Neutrophils Absolute 3.78 1.50 - 7.00 [facility] Lymphocytes Absolute 1.00 1.00 - 5.00 [facility] Monocytes Absolute 0.37 0.20 - 1.00 [facility] Eosinophil Absolute 0.12 0.00 - 0.50 [facility] Basophil ABS 0.04 0.00 - 0.20 [facility] Immature Grans (Absolute) 0.03 0.00 - 0.03 [facility] 09/06/2024 8:47 AM EST 09/06/2024 9:08 AM EST Darci Gamble MD LAB BLOOD ORDERABLES Final Re sult Performing Organization Address City/[facility]/ZIP Co de Phone Number [facility] [address] [place] [address] * Phosphorus (09/06/2024 8:47 AM EST) Phosphorus 2.7 2.5 - 4.5 mg/dL [facility] 09/06/2024 8:47 AM EST 09/06/2024 9:07 AM EST us Darci Gamble MD LAB BLOOD ORDERABLES Final Re sult Performing Organization Address City/[facility]/ZIP Co de Phone Number [facility] [address] [place] [address] * (ABNORMAL) PTH, Intact (09/06/2024 8:47 AM EST) PTH 129.2(H) 18.5 - 88.0 pcg/mL [facility] 09/06/2024 8:47 AM EST 09/06/2024 9:07 AM EST us Darci Gamble MD LAB BLOOD ORDERABLES Final Re sult Performing Organization Address City/[facility]/ZIP Co de Phone Number [facility] [address] [place] [address] * Hemoglobin A1c (09/06/2024 8:47 AM EST) Hemoglobin A1C 4.9 <6.5 % [facility] Estimated Average Glucose 94 mg/dL [facility] 09/06/2024 8:47 AM EST 09/06/2024 9:08 AM EST Darci Gamble MD LAB BLOOD ORDERABLES Final Re sult Performing Organization Address [facility] Co de Phone Number [facility] [address] [place] [address] * Ferritin (09/06/2024 8:47 AM EST) Ferritin 17 8 - 252 ng/mL [facility] 09/06/2024 8:47 AM EST 09/06/2024 9:07 AM EST Darci Gamble MD LAB BLOOD ORDERABLES Final Re sult Performing Organization Address City/[facility] Co de Phone Number [facility] [address] [place] [address] from Last 3 Months Insurance [facility] Medicaid [facility] Medicaid Care Teams Finish Opener Relationship Specialty Start Date End Date Delores Mancia MD [address] [place], [place] PCP - General 07/20/20
== END 2024-11-27 09:54 | disposition home or self-care (01) ==
LOC: HO.HOS 08:56
PROVIDERS: Visit Provider Physician Assistant
DX: M17.0 Bilateral primary osteoarthritis of knee (principal)
CPT/HCPCS: 20610

== ENCOUNTER → 2024-11-27 08:55 | Outpatient (BNVA) | payer OTHER, SELFPAY | PROVIDERS: Visit Provider Physician Assistant | DX: M17.0 Bilateral primary osteoarthritis of knee (principal) | CPT/HCPCS: 20610; J7323 ==

== ENCOUNTER 2024-12-05 08:26 | Outpatient (AMB) | payer OTHER, SELFPAY ==
--- NOTE | 2024-12-05 08:32 | MHC.OFFVIS ---
Vital Signs 12/05/24 08:37 Height 5 ft 4 in Weight 240 lb BMI 41.2 Intake Visit Reasons: INJ- B/L knee Euflexxa #3 Intake Note: Diane is a 39 year old female who presents today for bilateral knee Euflexxa injections #3. Allergies metformin [METFORMIN] Allergy (Intermediate, Verified 12/05/24 08:37) INFLAMMED GUMS, red gums, redness of gums doxycycline Adverse Reaction (Intermediate, Verified 12/05/24 08:37) Itching HPI HPI INJ- B/L knee Euflexxa #3: Details: 39-year-old female returns to the office today for her 3rd Euflexxa injection in both knees. She is doing well at this point. [facility] Medical History Osteoarthritis of knees, bilateral Hyperparathyroidism Vaginal discharge Physical exam Open wound of thumb Lupus Mild recurrent major depression Morbid obesity with BMI of 40.0-44.9, adult Vitamin D deficiency BMI 38.0-38.9,adult Intestinal malabsorption following gastrectomy Preeclampsia Obesity (BMI 30-39.9) Knee pain Hypertension Depression Proteinuria Autoimmune thyroiditis SLE (systemic lupus erythematosus related syndrome) Surgical History History of foot surgery History of open reduction and internal fixation (ORIF) procedure History of sleeve gastrectomy Status post biopsy of kidney Family History Father Asthma Mother No problems noted. Brother No problems noted. Brother No problems noted. Sister No problems noted. Social History Housing: Apartment Alcohol intake: never Patient Tobacco Use Status: Never used Tobacco e-Cigarette/Vaping Use: Never Used Second Hand Smoke Exposure: No service: No Current occupational status: unemployed Current occupational exposures/hazards: No Cognitive needs: No Hearing needs: No Vision needs: No Female Reproductive History Menstrual Age of Menarche: 11 Review of Systems Const All systems reviewed & are unremarkable except as noted in HPI and below Physical Exam Vital Signs: BMI result Body Mass Index 41.2 Extrem Other: Left knee skin intact, no erythema or joint effusion. Tenderness along the medial joint line. ROM full with crepitus. Negative steinmans. No ligamentous laxity. NVI. Right knee skin intact, no erythema or joint effusion. Tenderness along the medial joint line. ROM full with crepitus. Negative steinmans. No ligamentous laxity. NVI. Office Procedures AMB Joint Injection/Aspiration Joint Injection/Aspiration Details: euflexxa #3 Primary Site: right knee Secondary Site: left knee Prep: site was prepped using aseptic technique, ethochloride spray was applied and injection warnings given Injected: in the joint Approach Used: anterolateral Procedure: The patient tolerated the procedure well Coding 51345 - Glenohumeral/Tronchanteric Bursa/Intraarticular Procedure code (CPT) selection complete Assessment & Plan Assessment & Plan (1) Osteoarthritis of knees, bilateral: Code(s): M17.0 - Bilateral primary osteoarthritis of knee Category: Medical Qualifiers: Osteoarthritis type: primary Qualified Code(s): M17.0 - Bilateral primary osteoarthritis of knee Plan: Plan was to proceed with gel injection today. #3 euflexxa Injection performed today which the patient tolerated well. She will rest ice and use anti-inflammatories as needed for the next several days. She will take 6-8 weeks to allow the gel to settle in and if there are concerns she will see me back as prn. Coding Level of Care Code Procedure Only Diagnoses Primary osteoarthritis of both knees M17.0 Osteoarthritis type: primary CPT Codes Coding - Joint 7: 03777 - Glenohumeral/Tronchanteric Bursa/Intraarticular ([id number])
[2024-12-05 08:37] VITALS: BMI 41.2
--- OUTSIDE RECORDS SUMMARY | 2024-12-05 08:38 | XMS_ITS | Data Portability ---
Author Organization [facility] [address] Address [address] [place] [phone] Assessment No assessment recorded. Plan of Treatment Reminders Order Date Submit Date Provider Last Modified By Organization Details Last Modified Time Details Appointments None recorded. Lab None recorded. Referral None recorded. Procedures None recorded. Surgeries None recorded. Imaging None recorded. Medication Orders mupirocin 2 % topical ointment 2023 024 [facility] #[id number], [address] [place], [address], 4 18:36:48 cephalexin 500 mg capsule 2023 024 [facility] #[id number], [address] [place], [address], 4 18:36:48 Patient TargetsNo targets recorded. Patient InstructionsNo instructions recorded. Reason for Referral None Reported. Problems Name Problem SNOMED Code Status Onset Date Resolution Date Notes Provider Name and Address Organization Details Recorded Time Lupus erythematosus 766867506 Active 2023 Melody Palmer null, PA - [facility] 17:11:28 Depressive disorder 02644695 Active 2023 Melody Palmer null, PA - [facility] 17:11:43 Anxiety 82060881 Active 2023 Melody Palmer null, PA - [facility] 17:11:52 Problem Notes None recorded. Medical Equipment None Reported. Allergies Allergen ID Allergen Name Allergen Category Reaction Reaction Severity Criticality Documentation Date Start Date Code Code System Note Provider Name and Address Organization Details Recorded Time 264962 metformin medicatio n hives mild Not available [...] Updated DateTime 4 162.56 cm 45.3 kg/m2 987346. 39 g 97.7 [degF] 18 /min 100 % 100 % 72 /min 146 mm[Hg] 88 mm[Hg] Melody Chakraborty PA - [facility] 17:15:27 Social History Question Answer Notes LastModified by [employer] Details LastModified Time Tobacco Smoking Status Never [...] SNOMED-CT Code Diagnosis ICD10 Code Diagnosis [place] [id number] [place] [address] [place] [address] 10/07/2023 16:55:57 10/07/2023 17:37:11 Impetigo 56366536 L01.00 Impetigo (say im-puh-TY -go ) is [...] you can use an alcohol-ba sed hand veterinary attendant. Don't share items such as towels, sheets, [...] ID Guarantor Name 10/07/2023 1 [facility] (MEDICAID HMO) MISTY Vides [id number] Diane Vides 10/07/2023 1 [facility] PL[facility] - [facility] (MEDICAID REPLACEMENT - HMO) Diane Vides [id number] Diane Vides 10/07/2023 2 MEDICAID-[place]: [facility] [address] Diane Vides [id number] Diane Vides Notes Date Note Type Note [...] Coto NP [address] [place], [address], [place] - [facility] 10/07/2023 18:36:57 OBGyn Episode No OBEpisode recorded.
== END 2024-12-05 08:58 | disposition home or self-care (01) ==
LOC: HO.HOS 08:27
PROVIDERS: Visit Provider Physician Assistant
DX: M17.0 Bilateral primary osteoarthritis of knee (principal)
CPT/HCPCS: 20610

== ENCOUNTER → 2024-12-05 08:26 | Outpatient (BNVA) | payer OTHER, SELFPAY | PROVIDERS: Visit Provider Physician Assistant | DX: M17.0 Bilateral primary osteoarthritis of knee (principal) | CPT/HCPCS: 20610; J7323 ==

== ENCOUNTER 2024-12-19 08:37 | Outpatient (AMB) | payer OTHER, SELFPAY ==
--- NOTE | 2024-12-19 08:38 | A.OFFVIS_ITS ---
Vital Signs 12/19/24 08:39 Height 5 ft 4 in Weight 222 lb BMI 38.1 BP 120/80 Blood Pressure Location Lt brachial Position Sitting Pulse 64 Pulse Source Pulse Oximeter Pulse Oximetry (%) 99 Oxygen Delivery Method Room Air Intake Visit Reasons: 3 Months Intake Note: Patient present today for RA. Accompanied by: Self / Same As Patient Allergies metformin [METFORMIN] Allergy (Intermediate, Verified 12/19/24 08:39) INFLAMMED GUMS, red gums, redness of gums doxycycline Adverse Reaction (Intermediate, Verified 12/19/24 08:39) Itching HPI HPI 3 Months: Details: She has not been taking leflunomide for 2 months since not having hydroxychloroquine prescription. She thought she had to take both together. She continues to have morning stiffness lasting all day. It wakes her up at night. Joint pain is affecting her function and ADLs. Morning stiffness and joint pain is more predominant in her hands and knees. She received Euflexxa injection from Orthopedic surgery with benefit in bilateral knees. She is able to move more without as much pain as she used to have. Compression brace did not fit her thighs. She tried ordering 2 different types on [employer]. She denies fevers, dyspnea, pleurisy, rash, Raynaud's phenomenon. She has frothy urine. Denies frequency or dysuria or hematuria. She has an appointment with communications program manager in a month. [facility] Medical History Osteoarthritis of knees, bilateral Hyperparathyroidism Vaginal discharge Physical exam Open wound of thumb Lupus Mild recurrent major depression Morbid obesity with BMI of 40.0-44.9, adult Vitamin D deficiency BMI 38.0-38.9,adult Intestinal malabsorption following gastrectomy Preeclampsia Obesity (BMI 30-39.9) Knee pain Hypertension Depression Proteinuria Autoimmune thyroiditis SLE (systemic lupus erythematosus related syndrome) Surgical History History of foot surgery History of open reduction and internal fixation (ORIF) procedure History of sleeve gastrectomy Status post biopsy of kidney Family History Father Asthma Mother No problems noted. Brother No problems noted. Brother No problems noted. Sister No problems noted. Social History Housing: Apartment Alcohol intake: never Patient Tobacco Use Status: Never used Tobacco e-Cigarette/Vaping Use: Never Used Second Hand Smoke Exposure: No service: No Current occupational status: unemployed Current occupational exposures/hazards: No Cognitive needs: No Hearing needs: No Vision needs: No Female Reproductive History Menstrual Age of Menarche: 11 Physical Exam Vital Signs: Last Vital Signs Pulse 64 12/19/24 08:39 BP 120/80 12/19/24 08:39 Pulse Ox 99 12/19/24 08:39 Oxygen Delivery Method Room Air 12/19/24 08:39 BMI result Body Mass Index 38.1 General: Non-toxic, NAD. Speaking full sentences. Skin: Warm dry throughout. Legs symmetrical in size and shape bilaterally. No R knee or RLE edema, erythema or ecchymosis Eye: EOMI Respiratory: No respiratory distress or stridor Cardiac: DP pulse intact RLE MSK: Full ROM with flexion/extension R knee. DIffuse ttp medial and lateral joint line of knee. Minimal lateral tibial plateau ttp R knee. No laxity felt with varus or valgus force applied R knee Neurology: Alert. No aphasia or facial droop. Gait without abnormality Psych: Good mood and affect Const Other: General: Comfortable CVS: RRR Respiratory: clear to auscultation bilaterally. Good respiratory effort Skin: No lesions seen MSK:Tender bilateral MCPs and PIPs without synovitis. Tender bilateral wrists, shoulders and MTPs. She has chronic mild soft tissue right dorsal foot with sock schaeffer are round bilateral ankles. Mild Valgus deformity of bilateral knees. Normal range of motion of upper extremities and lower extremities. Assessment & Plan Assessment & Plan (1) SLE (systemic lupus erythematosus related syndrome): Comment: Inflammatory arthritis is not controlled. Synovitis resolved with prednisone course. At this time she is not on DMARD therapy due to miscommunication. She experienced explosive water diarrhea on hydroxychloroquine. She is unable to split dose of hydroxychloroquine because she forgets to take the evening dose. Brand Plaquenil was approved. Rheumatology history: Positive KEREN 1:160, low C3, indeterminate double-stranded DNA. 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 HCQ 2020- changed to Plaquenil due to side effect of explosive watery diarrhea on hydroxychloroquine 400 mg q.d. , Leflunomide 2023 - Code(s): M32.9 - Systemic lupus erythematosus, unspecified Category: Medical Plan: I will obtain labs for disease and drug monitoring this visit. Plaquenil 400 mg daily has been [facility]. Eye exam OCT and VF ok 09/19/2023 per note reviewed from [facility]. [facility] 08/2024 VF no toxicity from hydroxychloroquine. 12/2024 OCT ok. Eye exam for HCQ due yearly. Restart leflunomide 20mg daily Avoid oral NSAIDs in setting of gastric bypass surgery and CKD Return to clinic in 3 months Letter written for SSI application (2) Osteoarthritis of right knee: Comment: Improvement after gel injections (bilateral knees) 11/2024. Failed Tylenol. Unable to keep hinged brace on. Compression sleeve did not fit. Gel injection 2022 left knee provided her 2 years of benefit given to her by Orthopedic surgery. Code(s): M17.11 - Unilateral primary osteoarthritis, right knee Category: Medical Qualifiers: Osteoarthritis type: primary Qualified Code(s): M17.11 - Unilateral primary osteoarthritis, right knee Plan: Contraindication to oral NSAID use due to history of bariatric surgery Follow up with orthopedic surgery (3) Fibromyalgia: Code(s): M79.7 - Fibromyalgia Category: Medical Plan: Defer further management to PCP with consideration of neuropsychiatric medica tion that are indicated for fibromyalgia management (4) Proteinuria: Comment: Follows with nephrology. Code(s): R80.9 - Proteinuria, unspecified Category: Medical Qualifiers: Proteinuria type: unspecified Qualified Code(s): R80.9 - Proteinuria, unspecified Plan: She will have follow-up in September 2024 with nephrology. Labs for urine studies ordered to assess lupus activity Plan . Orders: Orders Complete Blood Count Man Dif 12/19/24 M32.9 - Systemic lupus erythematosus, unspecified Aspartate Amino Transferase 12/19/24 M32.9 - Systemic lupus erythematosus, unspecified Erythrocyte Sedimentation Rate 12/19/24 M32.9 - Systemic lupus erythematosus, unspecified Protein Creatinine Ratio, Ur 12/19/24 M32.9 - Systemic lupus erythematosus, unspecified Complement C4 12/19/24 M32.9 - Systemic lupus erythematosus, unspecified Alanine Aminotransferase 12/19/24 M32.9 - Systemic lupus erythematosus, unspecified Creatinine 12/19/24 M32.9 - Systemic lupus erythematosus, unspecified C Reactive Protein 12/19/24 M32.9 - Systemic lupus erythematosus, unspecified UA w Microscopic 12/19/24 M32.9 - Systemic lupus erythematosus, unspecified Anti DNA DS Antibody 12/19/24 M32.9 - Systemic lupus erythematosus, unspecified Complement C3 12/19/24 M32.9 - Systemic lupus erythematosus, unspecified Medications: Changed From Plaquenil (hydroxychloroquine) Dispense brand only 400 mg (2 x 200 mg) PO DAILY 60 tabs 5RF NS To Plaquenil (hydroxychloroquine) Dispense brand only. No PA needed 400 mg (2 x 200 mg) PO DAILY 180 tabs 1RF 90 days NS Coding Level of Care Code Est Pt Level 5 (27398) Complex EM visit Add On G2211 Diagnoses SLE (systemic lupus erythematosus related syndrome) M32.9 Primary osteoarthritis of right knee M17.11 Osteoarthritis type: primary Fibromyalgia M79.7 Proteinuria, unspecified type R80.9 Proteinuria type: unspecified Time Spent (min) 40
[2024-12-19 08:39] VITALS: BP 120/80; PULSE 64; O2SAT 99; BMI 38.1
--- OUTSIDE RECORDS SUMMARY | 2024-12-19 08:53 | XMS_ITS | Data Portability ---
Author Organization [facility] Address [address] [place] [id number] Assessment No assessment recorded. Plan of Treatment Reminders Order Date Submit Date Provider Last Modified By Organization Details Last Modified Time Details Appointments None recorded. Lab None recorded. Referral None recorded. Procedures None recorded. Surgeries None recorded. Imaging None recorded. Medication Orders mupirocin 2 % topical ointment 2023 024 [facility]/Pharmacy #[id number], [address] [place], [address], 4 18:36:48 cephalexin 500 mg capsule 2023 024 [facility]/Pharmacy #[id number], [address] [place], [address], 4 18:36:48 Patient TargetsNo targets recorded. Patient InstructionsNo instructions recorded. Reason for Referral None Reported. Problems Name Problem SNOMED Code Status Onset Date Resolution Date Notes Provider Name and Address Organization Details Recorded Time Lupus erythematosus 342796421 Active 2023 Melody Palmer null, PA - [facility] 17:11:28 Depressive disorder 66582213 Active 2023 Melody Palmer null, PA - [facility] 17:11:43 Anxiety 94263812 Active 2023 Melody Palmer null, PA - [facility] 17:11:52 Problem Notes None recorded. Medical Equipment None Reported. Allergies Allergen ID Allergen Name Allergen Category Reaction Reaction Severity Criticality Documentation Date Start Date Code Code System Note Provider Name and Address Organization Details Recorded Time 558438 metformin medicatio n hives mild Not available [...] Updated DateTime 4 162.56 cm 45.3 kg/m2 653679. 39 g 97.7 [degF] 18 /min 100 % 100 % 72 /min 146 mm[Hg] 88 mm[Hg] Melody Chakraborty PA - [facility] 17:15:27 Social History Question Answer Notes LastModified by [employer] Details LastModified Time Tobacco Smoking Status Never [...] SNOMED-CT Code Diagnosis ICD10 Code Diagnosis [place] [id number] [place] [address] [place] [address] 10/07/2023 16:55:57 10/07/2023 17:37:11 Impetigo 73035326 L01.00 Impetigo (say im-puh-TY -go ) is [...] you can use an alcohol-ba sed hand stonecutter assistant. Don't share items such as towels, sheets, [...] Joseph Member ID Guarantor Name 10/07/2023 1 [facility] (MEDICAID HMO) MISTY Vides [id number] Diane Vides 10/07/2023 1 [facility] - [facility] (MEDICAID REPLACEMENT - HMO) Diane Vides [id number] Diane Vides 10/07/2023 2 [place]: [facility] Diane Vides [id number] Diane Vides Notes Date Note Type Note [...] Coto NP [address] [place], [address], PA - [facility] 10/07/2023 18:36:57 OBGyn Episode No OBEpisode recorded.
== END 2024-12-19 09:15 | disposition home or self-care (01) ==
LOC: HO.RHES 08:37
PROVIDERS: PCP Internal Medicine; Visit Provider Internal Medicine Rheumatology
DX: M32.9 Systemic lupus erythematosus, unspecified (principal); M17.11 Unilateral primary osteoarthritis, right knee; M79.7 Fibromyalgia; R80.9 Proteinuria, unspecified
CPT/HCPCS: 99215; G2211

== ENCOUNTER → 2024-12-19 08:37 | Outpatient (BNVA) | payer OTHER, SELFPAY | PROVIDERS: Visit Provider Internal Medicine Rheumatology | DX: M17.11 Unilateral primary osteoarthritis, right knee (principal); M32.9 Systemic lupus erythematosus, unspecified; M79.7 Fibromyalgia; R80.9 Proteinuria, unspecified | CPT/HCPCS: 99212 ==

== ENCOUNTER 2025-02-03 08:35 | Outpatient (REF) | payer OTHER, SELFPAY ==
--- OUTSIDE RECORDS SUMMARY | 2024-04-15 14:04 | XMS_ITS | Encounter Summary ---
Author Organization [facility] Address [address] [place] [address] Care Team Providers Care Patent Legal Assistant Name Role Phone Delores Silva MD Primary Care Provider Encounter Details Date Type Department Care Team [...] AM EDT Office Visit Bariatric Surgery - [place] [address] [facility] [address] [place] [address] Ana Lilia Bruec PA [address] [facility] [address] [place] [address] documented as of this encounter Visit Diagnoses Not on filedocumented in this encounter Care Teams Patent Legal Assistant Relationship Specialty Start Date End Date Delores Silva MD [address] [facility] , [address] [facility] Physician Associ D/B/A: [facility]andra [facility] [place] PCP - General Internal Medicine 02/09/22 documented as of this encounter
--- OUTSIDE RECORDS SUMMARY | 2025-02-03 08:55 | XMS_ITS | Clinical Summary ---
Author Organization [facility] Address [address] [place] [address] Phone Care Team Providers Care Electric Transfer Operator Name Role Phone Delores Mancia MD Primary Care Provid er Delores Mancia MD Unavailable [phone] Allergies Active Allergy Reactions Criticality Noted Date Comments Metformin 07/07/2023 Medications valsartan (DIOVAN) 160 MG tablet Take 160 mg by mouth daily. Active Active Problems No known active problems Social History Tobacco Use Types Packs/Day Years Used Date Smoking Tobacco: Never Assessed Education Answer Date Recorded Are you interested in more education? Not on elio e 07/11/2023 Are you concerned about learning? Not on file 07/11/2023 No 07/11/2023 No 07/11/2023 Digital Access Answer Date Recorded No 07/11/2023 No 07/11/2023 Reliable internet access at home? Not on file 07/11/2023 Device with a working camera? Not on file Comments Unknown Sex and Gender Information Value Date Recorded Sex Assigned at Not on file Legal Sex Female 8:41 AM EST Gender Identity Not on file Sexual Orientation Not on file Last Filed Vital Signs Vital Sign Reading Time Taken Comments Blood Pressure 124/78 07/07/2023 7:16 PM EST Pulse 85 07/07/2023 7:16 PM EST Temperature 36.6 C (97.8 F) 07/07/2023 7:16 PM EST Respiratory Rate 16 07/07/2023 7:16 PM EST Oxygen Saturation 100% 07/07/2023 7:16 PM EST Inhaled Oxygen Concentration - - Weight - - Height - - Body Mass Index - - Plan of Treatment Health Maintenance Due Date Last Done Comments CREATININE LEVEL 1983 POTASSIUM LEVEL 1983 DEPRESSION SCREENING 1995 SMOKING Hx and SMOKELESS TOBACCO SCREENING 11/24/1996 HEPATITIS C SCREENING 11/24/2001 HIV ONE-TIME SCREENING (18-65 YEARS) 11/24/2001 PAP SMEAR 11/24/2004 MAMMOGRAM 2023 COVID-19 VACCINE ( season) 2024 10/04/2022, 06/18/2021, 10/18/2020, Additional history exists Adult Td,Tdap Booster 05/23/2026 05/23/2016 , 10/28/2009, 09/07/1998 HIB VACCINES Aged Out 10/09/2007 No longer eligi ble based on patient's age to complete this topic HEPATITIS A VACCINES Aged Out No long er eligible based on patient's age to complete this topic MENINGOCOCCAL VACCINES (ACWY) Aged Out No longer eligible based on patient's age to complete this topic MENINGOCOCCAL VACCINES (B) Aged Out N o longer eligible based on patient's age to complete this topic PNEUMOCOCCAL VACCINES (0-49 years) Aged Out No longer eligible based on patient's age to complete this topic Medical Devices Not on file Insurance [facility] [place] [facility] Care Teams Electric Transfer Operator Relationship Specialty Start Date End Date Delores Mancia MD [address] [place] [address] PCP - General Internal Medicine 07/07/23 Delores Mancia MD [address] [place] [address] 07/07/23 Additional Source Comments The information contained in this document represents components of the legal health record. It is not the complete legal health record.[facility]
--- OUTSIDE RECORDS SUMMARY | 2025-02-03 08:55 | XMS_ITS | Clinical Summary ---
Author Organization [facility] Address [address] [place] [address] Care Team Providers Care Loss Prevention Manager Name Role Phone Delores Mancia MD [...] 63 04/15/2024 2:29 PM EDT Temperature 36.8 C (98.2 F) 04/15/2024 2:29 PM EDT Respiratory Rate 16 04/15/2024 2:29 PM EDT [...] ( season) 2024 10/04/2022 Influenza Vaccine (#1) 2025 2, 05/12/2021, 05/23/2016 DTap / Tdap / [...] age to complete this topic Care Teams Loss Prevention Manager Relationship Specialty Start Date End Date Delores Mancia MD [address] [facility] , [address] [facility] D[facility] [place] [address] PCP - General Internal Medicine 12/13/23
--- OUTSIDE RECORDS SUMMARY | 2025-02-03 08:55 | XMS_ITS | Clinical Summary ---
Author Organization [employer] Address [address] [place] [address] [address] [place] [address] Care Team Providers Care Slasher Sawyer Name Role Phone Unavailable Primary Care Provider [...] 10/18/2020, Additional history exists Influenza Vaccine (#1) 2025 , 05/02/2022, 05/12/2021, Additional history exists DTaP/Tdap/Td Vaccines (15 - [...] Years) and At-Risk Patients (6 to 49) Years Aged Out No longer eligible based on patient's age to complete this topic RSV under 20 months Aged Out No longe r eligible based on patient's age to complete this topic Rotavirus Vaccines Aged Out No longer eligible based on patient's age to complete this [place] [address] [place] [address] ACO
--- OUTSIDE RECORDS SUMMARY | 2025-02-03 08:55 | XMS_ITS | Data Portability ---
Author Organization [facility] [address] Address [address] [place] [phone] Assessment No assessment recorded. Plan of Treatment Reminders Order Date Submit Date Provider Last Modified By Organization Details Last Modified Time Details Appointments None recorded. Lab None recorded. Referral None recorded. Procedures None recorded. Surgeries None recorded. Imaging None recorded. Medication Orders mupirocin 2 % topical ointment 2023 024 [facility]/Pharmacy #[id number], [address] [place], [address], 4 18:36:48 cephalexin 500 mg capsule 2023 024 [facility]/Pharmacy #[id number], [address] [place], [address], 4 18:36:48 Patient TargetsNo targets recorded. Patient InstructionsNo instructions recorded. Reason for Referral None Reported. Problems Name Problem SNOMED Code Status Onset Date Resolution Date Notes Provider Name and Address Organization Details Recorded Time Lupus erythematosus 462155821 Active 2023 Melody Palmer null, PA - [facility] 4 17:11:28 Depressive disorder 86534206 Active 2023 Melody Palmer null, PA - [facility] 4 17:11:43 Anxiety 04585381 Active 2023 Melody Palmer null, PA - [facility] 4 17:11:52 Problem Notes None recorded. Medical Equipment None Reported. Allergies Allergen ID Allergen Name Allergen Category Reaction Reaction Severity Criticality Documentation Date Start Date Code Code System Note Provider Name and Address Organization Details Recorded Time 702813 metformin medicatio n hives mild Not available [...] blood by Pulse oximetry Heart rate Systolic And Diastolic Provider Name and Address Organization Details Last Updated DateTime 4 162.56 cm 45.3 kg/m2 146423. 39 g 97.7 [degF] 18 /min 100 % 100 % 72 /min 146/88 mm[Hg] Melody Chakraborty PA - [facility] 17:15:27 Social History Question Answer Notes LastModified by [employer] Details LastModified Time Tobacco Smoking Status [...] SNOMED-CT Code Diagnosis ICD10 Code Diagnosis [place] [id number] [place] [address] [place] [address] 10/07/2023 16:55:57 10/07/2023 17:37:11 Impetigo 89455529 L01.00 Impetigo (say im-puh-TY -go ) is [...] you can use an alcohol-ba sed hand set key driver. Don't share items such as towels, sheets, [...] Joseph Member ID Guarantor Name 10/07/2023 1 [facility] PLAN (MEDICAID HMO) MISTY Vides [id number] Diane Vides 10/07/2023 1 [facility] PL[facility] - [facility] (MEDICAID REPLACEMENT - HMO) Diane Vides [id number] Diane Vides 10/07/2023 2 [place]: [facility] Diane Vides [id number] Diane Peewee OBGyn Episode No OBEpisode recorded.
--- OUTSIDE RECORDS SUMMARY | 2025-02-03 08:55 | XMS_ITS | Clinical Summary ---
Author Organization [facility] Address [address] [place] [address] Care Team Providers Care Central Office Installer Name Role Phone Delores Mancia MD Primary Care Provider [phone] Allergies Active Allergy Reactions Criticality Noted Date [...] EVERY DAY 90 tablet 11 09/17/2024 Active chlorthalidone 25 MG tablet TAKE 0.5 TABLETS BY MOUTH 1 TIME EACH DAY. 45 tablet 12/10/2024 Active Active Problems Problem Noted Date Diagnosed [...] Encounters Date Type Department Care Team Description 12/08/2024 Refill [facility] [address] [place] [phone] Darci Gamble MD from Last 3 Months [...] Visit [facility] [address] [place] [address] Darci Gamble MD [address] [facility] [address] [place] [address] Health Maintenance Due Date Last Done Comments Pneumococcal Vaccine: Peds ( 0 to 5 Years) and At-Risk Patients (6 to 49 Years) (1 of 2 - PCV) 11/24/2002 Influenza Vaccine (#1) 2025 2, 05/12/2021, 05/05/2020, Additional history exists Hepatitis B Vaccine Completed 09/07/1998, 05/06/1998, 02/17/1998 Insurance [facility] Medicaid [facility] Medicaid Care Teams Central Office Installer Relationship Specialty Start Date End Date Delores Mancia MD [address] [place], [place] PCP - General 07/20/20
== END 2025-02-03 08:36 | disposition home or self-care (01) ==
LOC: HO.MAMMO 08:35
PROVIDERS: PCP Internal Medicine; Visit Provider Internal Medicine
DX: Z12.31 Encounter for screening mammogram for malignant neoplasm of breast (principal)
CPT/HCPCS: 77063; 77067

== ENCOUNTER → 2025-02-03 08:45 | Outpatient (BNV) | payer OTHER, SELFPAY | PROVIDERS: PCP Internal Medicine; Visit Provider Internal Medicine | DX: Z12.31 Encounter for screening mammogram for malignant neoplasm of breast (principal) | CPT/HCPCS: 77063; 77067 ==

== ENCOUNTER 2025-02-19 09:01 | Outpatient (REF) | payer OTHER, SELFPAY ==
--- OUTSIDE RECORDS SUMMARY | 2024-04-15 14:04 | XMS_ITS | Encounter Summary ---
Author Organization [facility] Address [address] [place] [address] Care Team Providers Care Narcotics Investigator Name Role Phone Delores Silva MD Primary Care Provider [phone] Encounter Details Date Type Department Care Team [...] AM EDT Office Visit Bariatric Surgery - [place] [address] [facility] [address] [place] [address] Ana Lilia Bruce PA [address] [facility] [address] [place] [address] documented as of this encounter Visit Diagnoses Not on filedocumented in this encounter Care Teams Narcotics Investigator Relationship Specialty Start Date End Date Delores Silva MD [address] [facility] , [address] [facility] Physician Associ D/B/A: [facility]andra [facility] [place] PCP - General Internal Medicine 02/09/22 documented as of this encounter
--- OUTSIDE RECORDS SUMMARY | 2025-02-19 09:22 | XMS_ITS | Clinical Summary ---
Author Organization [facility] Address [address] [place] [address] Care Team Providers Care Instructional Paraprofessional Name Role Phone Delores Mancia MD Primary Care Provider [phone] Allergies Active Allergy Reactions Criticality Noted Date [...] 12/08/2024 Refill [facility] [address] [place] [phone] Darci Gamble MD from Last 3 Months [...] [facility] [address] [place] [address] Darci Gamble MD [address] [facility] [address] [place] [address] Health Maintenance Due Date Last Done Comments Pneumococcal Vaccine: Peds ( 0 to 5 Years) and At-Risk Patients (6 to 49 Years) (1 of 2 - PCV) 11/24/2002 Influenza Vaccine (#1) 2025 2, 05/12/2021, 05/05/2020, Additional history exists Hepatitis B Vaccine Completed 09/07/1998, 05/06/1998, 02/17/1998 Insurance [facility] Medicaid [facility] Medicaid Care Teams Instructional Paraprofessional Relationship Specialty Start Date End Date Delores Mancia MD [address] [place], [place] PCP - General 07/20/20
--- OUTSIDE RECORDS SUMMARY | 2025-02-19 09:22 | XMS_ITS | Clinical Summary ---
Author Organization [facility] Address [address] [place] [address] Care Team Providers Care Home Economist Name Role Phone Delores Mancia MD Primary [...] age to complete this topic Care Teams Home Economist Relationship Specialty Start Date End Date Delores Mancia MD [address] [facility] , [address] [facility] D/B/A: [facility] [place] [address] PCP - General Internal Medicine 12/13/23
--- OUTSIDE RECORDS SUMMARY | 2025-02-19 09:22 | XMS_ITS | Clinical Summary ---
Author Organization [employer] Address [address] [place] [address] 7[address] [place] [address] Care Team Providers Care Cylinder Machine Operator Name Role Phone Unavailable Primary Care Provider [...] patient's age to complete this topic [place] [address] [address] ACO
[2025-02-19 13:40] LABS: Appearance Urine Clear; Glucose Urine UA Negative (Negative); PH 5.5 (5.0-9.0); Specific Gravity - Urine 1.010 (1.005-1.025); UMIC TRIGGER UA YES
[2025-02-19 13:48] LABS: Baso%MD 1.4 %; Eos%MD 2.2 %; Hematocrit 32.2 % (37.0-47.0); Hemoglobin 10.3 g/dl (12.0-16.0); IG%MD 0.3 %; Lymph%MD 23.8 %; Mean Corpuscular HGB Conc 32.0 g/dl (31.0-35.0); Mean Corpuscular Hemoglobin 26.4 pg (27.0-33.0); Mean Corpuscular Volume 82.6 fL (80.0-98.0); Mono%MD 10.7 %; NRBC Abs Auto 0.000 X10*3/uL (0.0-0.012); NRBC Pct Auto 0.0 /100WBC (0.0-0.2); Neut%MD 61.6 %; Platelet Count 239 X10*3/uL (160-400); Red Blood Count 3.90 X10*6/uL (4.20-5.50); White Blood Count 3.7 X10*3/uL (4.8-10.8)
[2025-02-19 14:14] LABS: Band Neutrophils Percent 0 % (3-5); Basophils Percent Manual 1 % (0-2); Lymphocytes Absolute Manual 0.7 X10*3/uL (1.2-4.9); Lymphocytes Percent Manual 18 % (20-40); Monocytes Absolute Manual 0.4 X10*3/uL (0.1-1.2); Monocytes Percent Manual 10 % (2-11); Neutrophils Absolute Manual 2.6 X10*3/uL (2.0-8.3); Neutrophils Percent Manual 71 % (45-73); RBC Morphology NORMAL
[2025-02-19 14:19] LABS: Alanine Aminotransferase 17 U/L (0-31); Aspartate Amino Transferase 24 U/L (5-31); Estimated Glomerular Filt Rate 57; Thyroid Stimulating Hormone 3.39 uIU/mL (0.32-4.0)
[2025-02-19 14:46] LABS: Protein/Creatinine Ratio, Ur 0.33 (<0.2); Total Protein Urine Random 23 mg/dL (<12)
== END 2025-02-19 09:02 | disposition home or self-care (01) ==
LOC: HO.HKASLDS 09:01
PROVIDERS: Internal Medicine; Visit Provider Internal Medicine Rheumatology
DX: M32.9 Systemic lupus erythematosus, unspecified (principal); E03.9 Hypothyroidism, unspecified
CPT/HCPCS: 36415; 81001; 82565; 82570; 84156; 84443; 84450; 84460; 85007; 85027; 85652; 86140; 86160; 86225

== ENCOUNTER 2025-03-17 08:30 | Outpatient (AMB) | payer OTHER, SELFPAY ==
--- OUTSIDE RECORDS SUMMARY | 2024-04-15 14:04 | XMS_ITS | Encounter Summary ---
Author Organization [facility] Address [address] [place] [address] Care Team Providers Care Camp Counselor Name Role Phone Delores Silva MD Primary Care Provider [phone] Encounter Details Date Type Department Care Team (Late Contact Info) Description 04/15/2024 2:04 PM EDT Hospital Encounter TH HISTORIC ENCOUNTERS EASTERN CONVERSION ONLY Social History Tobacco Use Types Packs/Day Years Used Date Smoking Tobacco: Never Smokeless Tobacco: Never Alcohol Use Standard Drinks/Week Comments Not Currently 0 (1 standard drink = 0.6 oz pur e alcohol) Interpersonal Safety Answer Date Record ed Physical Abuse 07/26/2024 Verbal Abuse 07/26/2024 Comments No Sex and Gender Information [...] Care Team (Late st Contact Info) Description 04/28/2025 10:15 AM EDT Office Visit Bariatric Surgery - [address] [place] [phone] Ana Lilia Bruce, TRISTA [address] [place] [address] documented as of this encounter Visit Diagnoses Not on filedocumented in this encounter Care Teams Camp Counselor Relationship Specialty Start Date End Date Delores Silva MD [address] [facility] , [address] [facility] Physician Associ D/B/A: [facility]andra [facility] [place], [place] PCP - General Internal Medicine 02/09/22 documented as of this encounter
--- NOTE | 2025-03-17 08:34 | MHC.OFFVIS ---
Intake Visit Reasons: 1y follow up Intake Note: Patient is present for 1Y F/U Urology Medication:NONE Antibiotic Allergy:DOXYCYCLINE Blood Thinner:NONE Nuclear Operations Specialist Required: No Allergies metformin (METFORMIN) Allergy (Intermediate, Verified 03/17/25 09:08) INFLAMMED GUMS, red gums, redness of gums doxycycline Adverse Reaction (Intermediate, Verified 03/17/25 09:08) Itching Medication List - Last Reconciled 03/17/25 by BOSSMAN Dewey acetaminophen (Tylenol) 650 mg (2 x 325 mg) PO Q4H PRN albuterol sulfate 90 mcg/actuation (ProAir HFA) 2 puffs PO Q4-6H PRN albuterol sulfate 90 mcg/actuation 1 inh inhalation Q4-6H PRN cetirizine 10 mg PO DAILY PRN 90 days cholecalciferol (vitamin D3) 25 mcg PO DAILY 90 days clotrimazole 1% appl topical DAILY cyclobenzaprine 5 mg PO BEDTIME PRN diclofenac sodium 1% 4 grams topical QID fluticasone propionate 50 mcg/actuation (Flonase Allergy Relief) 1 spray intranasal DAILY 30 days [hinge brace HEAVY DUTY] leflunomide 20 mg PO DAILY levothyroxine 25 mcg PO DAILY 90 days loratadine 10 mg PO DAILY PRN 90 days Plaquenil (hydroxychloroquine) 400 mg (2 x 200 mg) PO DAILY 90 days NS Shower Chair HEAVY DUTY trazodone 25 - 50 mg PO BEDTIME triamcinolone acetonide (Nasal Allergy) 2 sprays intranasal DAILY valacyclovir 1,000 mg PO q12h valsartan 160 mg PO DAILY HPI Comments Details: [place] is a very pleasant 39 year old female patient of Dr. Herzog. She has a past medical history of lupus, depression, morbid obesity, vitamin-D deficiency, hypertension, and proteinuria. She presents to the office today for follow-up of her microscopic hematuria. In discussion with the patient today she reports to be doing and feeling well. She denies any bothersome urinary issues or concerns. Patient with a history of microscopic hematuria and previously underwent an office cystoscopy 09/[address] Nathan Thomas that noted no suspicious bladder lesions, bladder wall thickening. Previous workup has included CT urogram 09/30 noting urinary tract is within normal limits kidneys negative for masses or calculi. Urine cytology08/02 negative for malignant cells. In discussion with the patient today she reports to be doing and feeling well. She denies any bothersome urinary issues or concerns. She denies any previous smoking history. 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 In office urinalysis results reviewed with the patient today. 1+ leukocytes, 1+ protein, 1+ microscopic hematuria, and pH 6.0. We discussed and stressed the importance of adequate hydration as well as proteinuria. She reports proteinuria is related to her lupus and has undergone multiple biopsies in the past with Nephrology. When asked she denies urinary urgency, urinary frequency, incontinence, nocturia, hematuria, dysuria, foul smelling urine, changes to urinary stream, flank pain, fever, and or chills. She is happy with her current voiding parameters. [facility], [facility] Medical History Osteoarthritis of knees, bilateral Hyperparathyroidism Vaginal discharge Physical exam Open wound of thumb Lupus Mild recurrent major depression Morbid obesity with BMI of 40.0-44.9, adult Vitamin D deficiency BMI 38.0-38.9,adult Intestinal malabsorption following gastrectomy Preeclampsia Obesity (BMI 30-39.9) Knee pain Hypertension Depression Proteinuria Autoimmune thyroiditis SLE (systemic lupus erythematosus related syndrome) Surgical History History of foot surgery History of open reduction and internal fixation (ORIF) procedure History of sleeve gastrectomy Status post biopsy of kidney Family History Father Asthma Mother No problems noted. Brother No problems noted. Brother No problems noted. Sister No problems noted. Social History Housing: Apartment Alcohol intake: never Patient Tobacco Use Status: Never used Tobacco e-Cigarette/Vaping Use: Never Used Second Hand Smoke Exposure: No service: No Current occupational status: unemployed Current occupational exposures/hazards: No Cognitive needs: No Hearing needs: No Vision needs: No Female Reproductive History Menstrual Age of Menarche: 11 Review of Systems Eyes Reports no additional complaints ENT Reports no additional complaints Card Reports as per HPI Resp Reports no additional complaints GI Reports no additional complaints Reports as per HPI Musc Reports no additional complaints Neuro Reports no additional complaints Psych Reports as per HPI Aller/Immun Reports as per HPI Physical Exam Const General: cooperative, healthy appearing, comfortable, no acute distress, well developed, alert and awake Nutritional Appearance: overweight Orientation/consciousness: patient oriented x3 Limitations: no limitations HEENT Head: Yes normal to inspection, Yes normocephalic and Yes atraumatic Ears: hearing grossly normal bilaterally Eyes General: appearance normal, both eyes and all related structures Neck Neck: Yes normal visual inspection and Yes trachea midline Chest Chest palpation & inspection: normal inspection of the chest Resp Effort & Inspection: normal respiratory effort and able to speak in complete sentences Cardio Rate: regular rate GI Inspection: Yes normal to inspection General: Yes no CVA tenderness Back/Spine/Pelvis Back: no CVA tenderness Skin General skin exam: no rashes or lesions noted Neuro General: patient oriented x3 Extrem General: Yes normal to inspection Psych Appearance: grossly normal and well kempt Mental Status: mental status grossly normal Speech and movement: Normal speech and movement present and Clear speech present Affect: normal affect Attitude: cooperative Thought process: Normal thought process present Thought content: Normal thought content present Insight: Fair insight present (Psych) Judgement: Fair judgement present (Psych) Assessment & Plan Assessment & Plan (1) Microscopic hematuria: Code(s): R31.29 - Other microscopic hematuria Category: Medical Plan In office urinalysis results with the patient today; as noted above; will send for urine cytology. Patient currently denies any bothersome urinary issues or concerns. She reports to be happy with current voiding parameters. Continue to follow-up with nephrology as planned Discussed at length potential causes of microscopic hematuria. Discussed, educated, and stressed the importance of adequate hydration in relation to overall health and well-being Will continue with surveillance monitoring of microscopic hematuria. Follow-up in 1 year; or sooner with any issues, concerns, and or questions. Orders: Orders AMB Urinalysis Automated Today Z13.9 - Encounter for screening, unspecified Urine Cytology Today R31.29 - Other microscopic hematuria, R31.9 - Hematuria, unspecified Patient Instructions: The patient had an opportunity to ask questions regarding the treatment plan. All questions were answered. Physical exam, labs, and imaging were discussed and reviewed in detail. As well as risks, benefits, and discussion of treatment choices. No major barriers to understanding were identified. The patient expressed understanding and agreement with the above treatment plan. The patient was made aware they should contact our office by phone for worsening of their current condition, the appearance of new symptoms, or with any questions or concerns. Compliance is encouraged with any medications and follow up testing that is ordered. It is a privilege to be allowed the opportunity to participate in? your urological care.? Again, if you have any questions or concerns If you have any questions or concerns please do not hesitate to contact me. The office is [phone]. This note is constructed using voice recognition software. While every effort has been made to ensure accuracy manager battery errors may have been included. Yours sincerely, BOSSMAN Dewey Coding Level of Care Code Est Pt Level 3 (41634) Diagnoses Microscopic hematuria R31.29
--- OUTSIDE RECORDS SUMMARY | 2025-03-17 09:30 | XMS_ITS | Clinical Summary ---
Author Organization [facility] Address [address] [place] [address] Phone Care Team Providers Care Harbor Department Manager Name Role Phone Delores Silva MD Primary Care Provider [phone] Allergies Active Allergy Reactions Criticality Noted Date [...] every 8 (eight) hours. 180 tablet 07/16/2024 Active simethicone (MYLICON) 80 mg chewable tablet Chew 1 tablet (80 mg total) every 6 (six) hours if needed for flatulence. 120 tablet 07/16/2024 Active wheat dextrin 3 gram/3.5 gram powder in packet Take 1 packet by mouth 1 (one) time each day. 30 packet 07/16/2024 Active oxyCODONE (ROXICODONE) 5 mg immediate release tabletIndicatio ns:H/O gastric sleeve Take 1 tablet (5 mg total) by mouth every 4 (four) hours if needed for moderate pain. Max Daily Amount: 30 mg 15 tablet 07/27/2024 Active multivitamin tablet Take 1 tablet by mouth 1 (one) time each day. 30 each 11 12/31/2024 01/01/20 26 Active Active Problems Problem Noted Date Diagnosed Date Bariatric surgery status 08/08/2024 Chronic renal insufficiency 07/26/2024 HTN (hypertension) 07/25/2024 Morbid (severe) obesity due to excess calories ([facility] V24, [facility] V28) 06/18/2024 Class 2 severe obesity due t o excess calories with serious comorbidity and body mass index (BMI) of 36.0 to 36.9 in adult ([facility] V24, [facility] V28) 04/12/2024 Absolute anemia 03/22/2024 Encounters Date Type Department Care Team Description 12/31/2024 9:15 AM EDT Office Visit Bariatric Surgery - [address] [address] Ana Lilia Bruce PA Class 2 severe obesity due to excess calories with serious comorbidity and body mass index (BMI) of 36.0 to 36.9 in adult ([facility] V24, [facility] V28) (Primary Dx); Bariatric surgery status from Last 3 Months Immunizations Name Administration Dates Next Due Pfizer SARS-CoV-2 COVID-19, mRNA, LNP-S, preservative free 10/04/2022 Surgical History Surgery Date Site/Laterality Comments BARIATRIC SURGERY 2019 PROCEDURE:BARIATRIC SURGERY ORIF HIP FRACTURE Right orif r hip from dislocation Medical History Medical History Date Comments Anemia DX:Anemia Hypertension DX:Hypertension Depression DX:Depression Hypothyroidism not taking meds Anxiety Arthritis Joint pain Lupus (systemic lupus erythematosus) ([facility] V2 4, [facility] V28) Social History Tobacco Use Types Packs/Day [...] Sign Reading Time Taken Comments Blood Pressure 134/86 12/31/2024 9:09 AM EDT Pulse 61 12/31/2024 9:09 AM EDT Temperature 36.6 C (97.8 F) 12/31/2024 9:09 AM EDT Respiratory Rate 18 09/02/2024 1:34 PM EST Oxygen Saturation 100% 09/09/2024 10:02 AM EST Inhaled Oxygen Concentration - - Weight 98.4 kg (217 lb) 12/31/2024 9:09 AM EDT Height 165.1 cm (5' 5 ) 12/31/2024 9:09 AM EDT Body Mass Index 36.11 12/31/2024 9:09 AM EDT Plan of Treatment Upcoming Encounters Date Type Department Care Team (Late st Contact Info) Description 04/28/2025 10:15 AM EDT Office Visit Bariatric Surgery - [address] [place] [address] Ana Lilia Bruce, TRISTA [address] [place] [phone] Health Maintenance Due Date Last Done Comments Breast Cancer Screening 1983 Cervical Cancer Screening: Pap Smear 11/24/2004 HPV Vaccines (2 - 3-dose series) 2009 10/28/2009 HIV Screening 06/19/2022 Hepatitis C Screening 06/19/2022 Social Influencers of Health Screening 06/19/2022 Depression Screening 07/10/2024 COVID-19 Vaccine ( season) 2025 10/04/2022, 06/18/2021, 10/18/2020, Additional history exists Influenza Vaccine (#1) 2025 , 05/02/2022, 05/12/2021, Additional history exists Hypertension/CHF/CAD Annual BMP Blood [...] and At-Risk Patients (6 to 49 Years) Aged Out No longer eligible based on patient's age to complete this topic RSV Immunization Patients Under 20 months Aged Out No longer eligible based on patient's age to complete this topic Varicella Vaccines Aged Out No longer eligible based on patient's age to complete this topic Medical Devices Implanted Type Area Bottle And Glass Inspector Device Identifier Shelf Expiration Date Model / Serial / Lot Bone Pin Right: Hip Procedures Procedure Name Priority Date/Time Associated Diagnosis Comments COMPREHENSIVE METABOLIC PANEL Routine 09/06/2024 8:47 AM EST Bariatric surgery status LIPID PANEL Routine 09/11/2023 from Last 3 Months or Most Recently Relevant to Health Maintenance Results * (ABNORMAL) Comprehensive metabolic panel (09/06/2024 8:47 AM EST) Sodium 141 133 - 145 mmol/L LAB CHEMISTRY METHOD 09/06/2024 11:20 AM EST [facility] Potassium 3.8 3.5 - 5.5 mmol/L LAB CHEMISTRY METHOD 09/06/2024 11:20 AM [facility] Chloride 110 96 - 110 mmol/L LAB CHEMISTRY METHOD 09/06/2024 11:20 AM [facility] CO2 26 21 - 32 mmol/L LAB CHEMISTRY METHOD 09/06/2024 11:20 AM [facility] Anion Gap 5 3 - 11 LAB CHEMISTRY METHOD 09/06/2024 11:20 AM [facility] Glucose 82 70 - 100 mg/dL LAB CHEMISTRY METHOD 09/06/2024 11:20 AM [facility] BUN 12 5 - 25 mg/dL LAB CHEMISTRY METHOD 09/06/2024 11:20 AM [facility] Creatinine 1.05 0.50 - 1.10 mg/dL LAB CHEMISTRY METHOD 09/06/2024 11:20 AM [facility] eGFR 69 >=60 mL/min/1. 73m2 LAB CHEMISTRY METHOD 09/06/2024 11:20 AM [facility] Comment:Calculation based on the Chronic Kidney Disease Epidemiology Collaboration (CKD-EPI) equation refit without adjustment for race. BUN/Creatinine Ratio 11.4 LAB CHEMISTRY METHOD 09/06/2024 11:20 AM [facility] Calcium 8.8 8.5 - 10.5 mg/dL LAB CHEMISTRY METHOD 09/06/2024 11:20 AM [facility] AST (SGOT) 14 10 - 42 unit/L LAB CHEMISTRY METHOD 09/06/2024 11:20 AM [facility] ALT (SGPT) 22 10 - 60 unit/L LAB CHEMISTRY METHOD 09/06/2024 11:20 AM [facility] Alkaline Phosphatase 95 42 - 121 unit/L LAB CHEMISTRY METHOD 09/06/2024 11:20 AM [facility] Total Protein 5.7(L) 6.0 - 8.0 g/dL LAB CHEMISTRY METHOD 09/06/2024 11:20 AM EST [facility] Albumin 2.8(L) 3.2 - 5.0 g/dL LAB CHEMISTRY METHOD 09/06/2024 11:20 AM EST [facility] Total Bilirubin 0.4 0.0 - 1.4 mg/dL LAB CHEMISTRY METHOD 09/06/2024 11:20 AM EST [facility] Blood Venous blood specimen / Unknown Venipuncture / Unknown 09/06/2024 8:47 AM EST 09/06/2024 9:07 AM EST Ana Lilia WESTON LAB BLOOD ORDERABLES Final R esult [facility] [address] [place] [address], [place] [phone] * Lipid panel (09/11/2023) LDL/HDL Ratio 3 0 - 4 Triglycerides 129 0 - 150 mg/dL Cholesterol 159 0 - 200 mg/dL HDL 47 >=40 mg/dL LDL Cholesterol 87 0 - 100 mg/dL Blood Venous blood specimen / Unknown Historical Provider LAB BLOOD ORDERABLES Sonam l Result from Last 3 Months or Most Recently Relevant to Health Maintenance Insurance [facility] MEDICAID - [place] Care Teams Harbor Department Manager Relationship Specialty Start Date End Date Delores Silva MD [address] [facility] , [address] [facility] Physician Associ D/B/A: [facility] [place] PCP - General Internal Medicine 02/09/22
--- OUTSIDE RECORDS SUMMARY | 2025-03-17 09:30 | XMS_ITS | Clinical Summary ---
Author Organization [facility] Address [address] [place] [address] Care Team Providers Care Bass String Winder Name Role Phone Delores Mancia MD Primary Care Provider [phone] Allergies Active Allergy Reactions Criticality Noted Date [...] escitalopram (LEXAPRO) 10 MG tablet 2 Active valsartan (DIOVAN) 160 MG tabletIndicati ons:Persistent proteinuria,Ch ronic kidney disease stage 1 TAKE 1 TABLET BY MOUTH EVERY DAY 90 tablet 11 5 Active chlorthalidone 25 MG tablet TAKE 0.5 TABLETS BY MOUTH 1 TIME EACH DAY. 45 tablet 5 Active chlorthalidone 25 MG tablet TAKE 0.5 TABLETS BY MOUTH 1 TIME EACH DAY. 45 tablet 5 025 Discontinued Active Problems Problem Noted Date Diagnosed Date Chronic kidney disease, stage 2 (mild) 5 Hypertensive disorder 07/25/2024 Severe obesity 10/23/2023 Abnormal finding on screening of jany laureano 12/02/2021 Arthritis 12/02/2021 Dichorionic diamniotic twin 12/02/2021 [...] Encounters Date Type Department Care Team Description 03/13/2025 Refill [facility] [address] [phone] Darci Gamble MD from Last 3 Months [...] Visit [facility] [address] [place] [address] Darci Gamble MD [address] [facility] [address] [place] [address] Health Maintenance Due Date Last Done Comments Pneumococcal Vaccine: Peds ( 0 to 5 Years) and At-Risk Patients (6 to 49 Years) (1 of 2 - PCV) 11/24/2002 Influenza Vaccine (#1) 2025 2, 05/12/2021, 05/05/2020, Additional history exists Hepatitis B Vaccine Completed 09/07/1998, 05/06/1998, 02/17/1998 Insurance [facility] Medicaid [facility] Medicaid Care Teams Bass String Winder Relationship Specialty Start Date End Date Delores Mancia MD [address] [place], [place] PCP - General 07/20/20
--- OUTSIDE RECORDS SUMMARY | 2025-03-17 09:30 | XMS_ITS | Clinical Summary ---
Author Organization [facility] Address [address] [facility] [address] [place] [address] Phone Care Team Providers Care Aoc Aadc Operations Staff Officer Name Role Phone Delores Mancia MD Primary Care Provid er Delores Mancia MD Unavailable [phone] Allergies Active Allergy Reactions Criticality Noted Date [...] YEARS) 11/24/2001 PAP SMEAR 11/24/2004 MAMMOGRAM 2023 INFLUENZA VACCINE (#1) 2025 , 05/12/2021, 05/23/2016, Additional history exists COVID-19 VACCINE ( season) 2025 10/04/2022, 06/18/2021, 10/18/2020, Additional history exists Adult [...] topic Medical Devices Not on file Insurance [facility] [place] [facility] [place] [facility] Care Teams Aoc Aadc Operations Staff Officer Relationship Specialty Start Date End Date Delores Mancia MD [address] [place] [address] PCP - General Internal Medicine 07/07/23 Delores Mancia MD [address] [place] [address] 07/07/23 Additional Source Comments The information contained in this document represents components of the legal health record. It is not the complete legal health record.[facility]
--- OUTSIDE RECORDS SUMMARY | 2025-03-17 09:30 | XMS_ITS | Clinical Summary ---
Author Organization [facility] Address [address] [place] [address] Care Team Providers Care Manager Dialysis Name Role Phone Delores Mancia MD Primary [...] (Pap Smear) 11/24/2004 COVID-19 Vaccine ( season) 2025 10/04/2022 Influenza Vaccine (#1) 2025 2, 05/12/2021, [...] age to complete this topic Care Teams Manager Dialysis Relationship Specialty Start Date End Date Delores Mancia MD 2 [facility] , [address] [facility] Physician Associ D/B/A: [facility] [place] [address] PCP - General Internal Medicine 12/13/23
--- OUTSIDE RECORDS SUMMARY | 2025-03-17 09:30 | XMS_ITS | Clinical Summary ---
Author Organization [employer] Address [address] [place] [address] [address] [place] [address] Care Team Providers Care Packing Room Inspector Name Role Phone Unavailable Primary Care Provider [...] 11/24/2013 Mammogram 2023 COVID-19 Vaccine ( season) 2025 10/04/2022, 06/18/2021, [...] patient's age to complete this topic Insurance [place] [address] ACO
--- OUTSIDE RECORDS SUMMARY | 2025-03-17 09:31 | XMS_ITS | Encounter Summary ---
Author Organization [facility] Address [address] [address] Phone Care Team Providers Care Tap And Die Maker Technician Name Role Phone Delores Mancia MD Primary Care Provider [phone] Reason for Visit * Reason Comments Med Refill Encounter Details Date Type Department Care Team (Late Contact Info) Description 03/13/2025 Refill [facility] [address] [address] Darci Gamble MD [address] [address] Social History Tobacco Use Types [...] Visit [facility] [address] [place] [address] Darci Gamble MD [address] [address] documented as of this encounter Visit Diagnoses Not on filedocumented in this encounter Care Teams Tap And Die Maker Technician Relationship Specialty Start Date End Date Delores Mancia MD [address] [place] [address] [address] [place] PCP - General 07/20/20 documented as of this encounter
== END 2025-03-17 09:06 | disposition home or self-care (01) ==
LOC: HO.HUSH 08:31
PROVIDERS: PCP Internal Medicine; Visit Provider Nurse Practitioner Family
DX: Z13.9 Encounter for screening, unspecified (principal); R31.29 Other microscopic hematuria
CPT/HCPCS: 99213

== ENCOUNTER 2025-03-17 08:30 | Outpatient (REF) | payer OTHER, SELFPAY | END 2025-03-17 08:31 | disposition home or self-care (01) | LOC: HO.LAB 08:30 | PROVIDERS: PCP Internal Medicine; Visit Provider Nurse Practitioner Family | DX: R31.29 Other microscopic hematuria (principal) | CPT/HCPCS: 81003; 88112; 99212 ==

== ENCOUNTER 2025-03-18 08:37 | Outpatient (AMB) | payer OTHER, SELFPAY ==
--- OUTSIDE RECORDS SUMMARY | 2024-04-15 14:04 | XMS_ITS | Encounter Summary ---
Author Organization [facility] Address [address] [place] [address] Care Team Providers Care Backfiller Name Role Phone Delores Silva MD Primary Care Provider [phone] Encounter Details Date Type Department Care Team [...] AM EDT Office Visit Bariatric Surgery - [address] [place] [id number] Ana Lilia Bruce, [address] [place] [address] documented as of this encounter Visit Diagnoses Not on filedocumented in this encounter Care Teams Backfiller Relationship Specialty Start Date End Date Delores Silva MD [address] [facility] , [address] [facility] D/B/A: [facility] [place], [place] PCP - General Internal Medicine 02/09/22 documented as of this encounter
[2025-03-18 08:40] VITALS: BP 124/76; PULSE 57; TEMP 36.8; O2SAT 99; BMI 37.1
--- NOTE | 2025-03-18 08:40 | AM.OFFWIN_ITS ---
Intake Vital Signs 03/18/25 08:40 Height 5 ft 4 in Weight 216 lb BMI 37.1 BP 124/76 Blood Pressure Location Rt brachial Position Sitting Pulse 57 Pulse Source Pulse Oximeter Temp 98.3 F Temp Source Oral Pulse Oximetry (%) 99 Oxygen Delivery Method Room Air Intake Visit Reasons: EP-head & sinus pressure, sore throat, body ache Intake Note: pt presents with sinus congestion/pressure, head pressure, sore throat with pain swallowing, body aches-started yesterday Patient Tobacco Use Status: Never used Tobacco Allergies metformin (METFORMIN) Allergy (Intermediate, Verified 03/18/25 08:43) INFLAMMED GUMS, red gums, redness of gums doxycycline Adverse Reaction (Intermediate, Verified 03/18/25 08:43) Itching Do you need a note to return to daycare/school/sports/work: No HPI HPI Comments History of Present Illness Details History of Present Illness - The patient is a 39-year-old female pr esenting with symptoms of pressure in the head, stuffy nose, and throat pain. - Symptoms began a few days ago with pre ssure in the head and body aches, but no headache or fever was noted. 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 - She took Tylenol in the morning, which did not alleviate the pressure in her head and eyes. - The patient suspects allergies as a ca use due to itching and nasal symptoms, and she usually takes Cetirizine for allergies. - She does not have a nasal spray and freitas s not experienced coughing or green nasal discharge recently. - The patient has a history of asthma, w [facility] is currently stable. - She denies fever, chills, CP, SOB, abd pain, n/v/d, or cough. Physical Exam General: Cooperative, healthy appearing, comfortable, no acute distress and well developed Head: Normal to inspection Ears: Hearing grossly normal bilaterally. No tragus or mastoid tenderness noted. Auditory canals clear bilaterally. TM's normal, not bulging. No fluid noted. Nose: Normal external nose present. Moist mucosa. Turbinates normal bilaterally, not boggy. Face and sinus: Tenderness to palpation of the frontal and maxillary sinuses bilaterally. Neck: Normal visual inspection and Yes full ROM. No lymphadenopathy noted. Respiratory: Normal respiratory effort and able to speak in complete sentences. Clear to auscultation bilaterally Cardiovascular: Regular rate and rhythm. Normal S1 and S2 GI: Normal to inspection. Soft to palpation and nontender, nondistended. No guarding noted. Skin: No rashes or lesions noted [facility] Medical History Osteoarthritis of knees, bilateral Hyperparathyroidism Vaginal discharge Physical exam Open wound of thumb Lupus Mild recurrent major depression Morbid obesity with BMI of 40.0-44.9, adult Vitamin D deficiency BMI 38.0-38.9,adult Intestinal malabsorption following gastrectomy Preeclampsia Obesity (BMI 30-39.9) Knee pain Hypertension Depression Proteinuria Autoimmune thyroiditis SLE (systemic lupus erythematosus related syndrome) Surgical History History of foot surgery History of open reduction and internal fixation (ORIF) procedure History of sleeve gastrectomy Status post biopsy of kidney Family History Father Asthma Mother No problems noted. Brother No problems noted. Brother No problems noted. Sister No problems noted. Social History Housing: Apartment Alcohol intake: never Patient Tobacco Use Status: Never used Tobacco e-Cigarette/Vaping Use: Never Used Second Hand Smoke Exposure: No service: No Current occupational status: unemployed Current occupational exposures/hazards: No Cognitive needs: No Hearing needs: No Vision needs: No Female Reproductive History Menstrual Age of Menarche: 11 Review of Systems Const All systems reviewed & are unremarkable except as noted in HPI and below Physical Exam Vital Signs: Last Vital Signs Temp 98.3 F 03/18/25 08:40 Pulse 57 03/18/25 08:40 BP 124/76 03/18/25 08:40 Pulse Ox 99 03/18/25 08:40 Oxygen Delivery Method Room Air 03/18/25 08:40 BMI result Body Mass Index 37.1 Assessment & Plan Assessment & Plan (1) Sinus congestion: Code(s): R09.81 - Nasal congestion Plan Most likely URI vs covid vs flu vs RSV vs allergic rhinitis rapid strep negative plan - will order covid/flu/rsv swab - tylenol or motrin as needed for pain or fever - continue with zyrtec, will send in a refill - flonase daily - will call her with results - follow up with PCP Orders: Orders SARS-CoV2/FLU/RSV Today R09.89 - Other specified symptoms and signs involving the circulatory and respiratory systems Medications: New fluticasone propionate 50 mcg/actuation administer into each nostril 1 spray intranasal Q12H 16 grams 0RF Refilled cetirizine 10 mg PO DAILY PRN 90 tabs 1RF allergy symptoms 90 days Coding Level of Care Code Est Pt Level 3 (70098) Diagnoses Sinus congestion R09.81
--- OUTSIDE RECORDS SUMMARY | 2025-03-18 09:41 | XMS_ITS | Clinical Summary ---
Author Organization [facility] Address [address] [place] [address] Phone Care Team Providers Care Hospice Spiritual Care Coordinator Name Role Phone Delores Silva MD Primary Care Provider [phone] Allergies Active Allergy Reactions Criticality Noted Date [...] Morbid (severe) obesity due to excess calories ([facility] V24, [facility] V28) 06/18/2024 Class 2 severe obesity due t o excess calories with serious comorbidity and body mass index (BMI) of 36.0 to 36.9 in adult ([facility] V24, [facility] V28) 04/12/2024 Absolute anemia 03/22/2024 Encounters Date Type Department Care Team Description 12/31/2024 9:15 AM EDT Office Visit Bariatric Surgery - [address] [address] Ana Lilia Bruce PA Class 2 severe obesity due to excess calories with serious comorbidity and body mass index (BMI) of 36.0 to 36.9 in adult ([facility] V24, [facility] V28) (Primary Dx); Bariatric surgery status from [...] Arthritis Joint pain Lupus (systemic lupus erythematosus) ([facility] V2 4, [facility] V28) Social History Tobacco Use Types Packs/Day [...] AM EDT Office Visit Bariatric Surgery - [address] [place] [address] Ana Lilia Bruce, TRISTA [address] [place] [address] Health Maintenance Due Date Last Done [...] this topic Medical Devices Implanted Type Area Riveter Device Identifier Shelf Expiration Date Model / [...] LAB CHEMISTRY METHOD 09/06/2024 11:20 AM EST [facility] Potassium 3.8 3.5 - 5.5 mmol/L LAB CHEMISTRY METHOD 09/06/2024 11:20 AM [facility] Chloride 110 96 - 110 mmol/L LAB CHEMISTRY METHOD 09/06/2024 11:20 AM [facility] CO2 26 21 - 32 mmol/L LAB CHEMISTRY METHOD 09/06/2024 11:20 AM [facility] Anion Gap 5 3 - 11 LAB CHEMISTRY METHOD 09/06/2024 11:20 AM [facility] Glucose 82 70 - 100 mg/dL LAB CHEMISTRY METHOD 09/06/2024 11:20 AM [facility] BUN 12 5 - 25 mg/dL LAB CHEMISTRY METHOD 09/06/2024 11:20 AM [facility] Creatinine 1.05 0.50 - 1.10 mg/dL LAB CHEMISTRY METHOD 09/06/2024 11:20 AM [facility] eGFR 69 >=60 mL/min/1. 73m2 LAB CHEMISTRY METHOD 09/06/2024 11:20 AM [facility] Comment:Calculation based on the Chronic Kidney Disease Epidemiology Collaboration (CKD-EPI) equation refit without adjustment for race. BUN/Creatinine Ratio 11.4 LAB CHEMISTRY METHOD 09/06/2024 11:20 AM [facility] Calcium 8.8 8.5 - 10.5 mg/dL LAB CHEMISTRY METHOD 09/06/2024 11:20 AM [facility] AST (SGOT) 14 10 - 42 unit/L LAB CHEMISTRY METHOD 09/06/2024 11:20 AM [facility] ALT (SGPT) 22 10 - 60 unit/L LAB CHEMISTRY METHOD 09/06/2024 11:20 AM [facility] Alkaline Phosphatase 95 42 - 121 unit/L LAB CHEMISTRY METHOD 09/06/2024 11:20 AM [facility] Total Protein 5.7(L) 6.0 - 8.0 g/dL LAB CHEMISTRY METHOD 09/06/2024 11:20 AM EST [facility] Albumin 2.8(L) 3.2 - 5.0 g/dL LAB CHEMISTRY METHOD 09/06/2024 11:20 AM EST [facility] Total Bilirubin 0.4 0.0 - 1.4 mg/dL LAB CHEMISTRY METHOD 09/06/2024 11:20 AM EST [facility] Blood Venous blood specimen / Unknown Venipuncture / Unknown 09/06/2024 8:47 AM EST 09/06/2024 9:07 AM EST Ana Lilia WESTON LAB BLOOD ORDERABLES Final R esult [facility] [address] [place] [address], [place] [phone] * Lipid panel (09/11/2023) LDL/HDL Ratio 3 0 - 4 Triglycerides 129 0 - 150 mg/dL Cholesterol 159 0 - 200 mg/dL HDL 47 >=40 mg/dL LDL Cholesterol 87 0 - 100 mg/dL Blood Venous blood specimen / Unknown Historical Provider LAB BLOOD ORDERABLES Sonam l Result from Last 3 Months or Most Recently Relevant to Health Maintenance Insurance [facility] MEDICAID - [place] Care Teams Hospice Spiritual Care Coordinator Relationship Specialty Start Date End Date Delores Silva MD [address] [facility] , [address] [facility] Physician Associ D/B/A: [facility] [place] PCP - General Internal Medicine 02/09/22
--- OUTSIDE RECORDS SUMMARY | 2025-03-18 09:41 | XMS_ITS | Clinical Summary ---
Author Organization [facility] Address [address] [place] [address] Care Team Providers Care Steel Molder Name Role Phone Delores Mancia MD Primary [...] age to complete this topic Care Teams Steel Molder Relationship Specialty Start Date End Date Delores Mancia MD 2 [facility] , [address] [facility] Physician Associ D/B/A: [facility] [place] [address] PCP - General Internal Medicine 12/13/23
--- OUTSIDE RECORDS SUMMARY | 2025-03-18 09:41 | XMS_ITS | Clinical Summary ---
Author Organization [facility] Facility Address [address] [place] [address] Care Team Providers Care Courtroom Deputy Name Role Phone Delores Mancia MD Primary Care Provider [phone] Allergies Active Allergy Reactions Criticality Noted Date [...] Refill [facility] [id number] Darci Gamble MD from Last 3 Months [...] Visit [facility] [address] [place] [address] Darci Gamble MD [address] [facility] [address] [place] [address] Health Maintenance Due Date Last Done Comments Pneumococcal Vaccine: Peds ( 0 to 5 Years) and At-Risk Patients (6 to 49 Years) (1 of 2 - PCV) 11/24/2002 Influenza Vaccine (#1) 2025 2, 05/12/2021, 05/05/2020, Additional history exists Hepatitis B Vaccine Completed 09/07/1998, 05/06/1998, 02/17/1998 Insurance [facility] Medicaid [facility] Medicaid Care Teams Courtroom Deputy Relationship Specialty Start Date End Date Delores Mancia MD [address] [place], [place] PCP - General 07/20/20
--- OUTSIDE RECORDS SUMMARY | 2025-03-18 09:41 | XMS_ITS | Encounter Summary ---
Author Organization [facility] Address [address] [address] Phone Care Team Providers Care Lead Programmer Analyst Name Role Phone Delores Mancia MD Primary Care Provider [phone] Reason for Visit * Reason Comments Med Refill Encounter Details Date Type Department Care Team (Late Contact Info) Description 03/13/2025 Refill [facility] [address] [address] Darci Gamble MD [address] [address] Social History Tobacco Use Types [...] Office Visit [facility] [address] [place] [id number] Darci Gamble MD [address] [address] documented as of this encounter Visit Diagnoses Not on filedocumented in this encounter Care Teams Lead Programmer Analyst Relationship Specialty Start Date End Date Delores Mancia MD [address] [place] [address] [address] [place] PCP - General 07/20/20 documented as of this encounter
--- OUTSIDE RECORDS SUMMARY | 2025-03-18 09:41 | XMS_ITS | Clinical Summary ---
Author Organization [facility] Address [address] [facility] [address] [place] [address] Phone Care Team Providers Care Director Of Reservations Name Role Phone Delores Mancia MD Primary Care Provid er Delores Mancia MD Unavailable [phone] Allergies Active Allergy Reactions Criticality Noted Date [...] topic Medical Devices Not on file [facility] [place] [facility] [place] [facility] Care Teams Director Of Reservations Relationship Specialty Start Date End Date Delores Mancia MD [address] [place] [address] PCP - General Internal Medicine 07/07/23 Delores Mancia MD [address] [place] [address] 07/07/23 Additional Source Comments The information contained in this document represents components of the legal health record. It is not the complete legal health record.[facility]
--- OUTSIDE RECORDS SUMMARY | 2025-03-18 09:41 | XMS_ITS | Clinical Summary ---
Author Organization [employer] Address [address] [place] [address] 7[address] [place] [address] Care Team Providers Care Forestry Aid Technician Name Role Phone Unavailable Primary Care Provider [...] patient's age to complete this topic Insurance [place] [address] ACO
== END 2025-03-18 09:10 | disposition home or self-care (01) ==
PROVIDERS: PCP Internal Medicine; Visit Provider Physician Assistant Medical
DX: R09.81 Nasal congestion (principal); Z13.9 Encounter for screening, unspecified

== ENCOUNTER 2025-03-18 08:37 | Outpatient (REF) | payer OTHER, SELFPAY ==
[2025-03-18 11:14] LABS: Resp Syncy Virus RNA Qual PCR NEGATIVE (Negative); SARS COV2 PCR INHOUSE NEGATIVE (Negative)
== END 2025-03-18 08:38 | disposition home or self-care (01) ==
LOC: HO.LNP 08:37
PROVIDERS: PCP Internal Medicine; Visit Provider Physician Assistant Medical
DX: R09.81 Nasal congestion (principal); R50.9 Fever, unspecified; R09.89 Other specified symptoms and signs involving the circulatory and respiratory systems; J02.9 Acute pharyngitis, unspecified
CPT/HCPCS: 87637; 87880; 99212

== ENCOUNTER 2025-03-20 16:22 | Outpatient (AMB) | payer OTHER, SELFPAY ==
--- NOTE | 2025-03-20 16:28 | A.OFFPC_ITS ---
Vital Signs 03/20/25 16:30 Height 5 ft 4 in Weight 217 lb 2 oz BMI 37.3 BP 142/80 H Blood Pressure Location Lt brachial Position Sitting Pulse 63 Pulse Oximetry (%) 100 Intake Visit Reasons: follow up depression Weather Analyst Required: No Accompanied by: Self / Same As Patient Allergies metformin (METFORMIN) Allergy (Intermediate, Verified 03/20/25 16:39) INFLAMMED GUMS, red gums, redness of gums doxycycline Adverse Reaction (Intermediate, Verified 03/20/25 16:39) Itching Medication List - Last Reconciled 03/20/25 by Delores Silva MD acetaminophen (Tylenol) 650 mg (2 x 325 mg) PO Q4H PRN albuterol sulfate 90 mcg/actuation (ProAir HFA) 2 puffs PO Q4-6H PRN albuterol sulfate 90 mcg/actuation 1 inh inhalation Q4-6H PRN cetirizine 10 mg PO DAILY PRN 90 days cholecalciferol (vitamin D3) 25 mcg PO DAILY 90 days clotrimazole 1% appl topical DAILY cyclobenzaprine 5 mg PO BEDTIME PRN diclofenac sodium 1% 4 grams topical QID fluticasone propionate 50 mcg/actuation (Flonase Allergy Relief) 1 spray intranasal DAILY 30 days fluticasone propionate 50 mcg/actuation 1 spray intranasal Q12H [hinge brace HEAVY DUTY] leflunomide 20 mg PO DAILY levothyroxine 25 mcg PO DAILY 90 days loratadine 10 mg PO DAILY PRN 90 days Plaquenil (hydroxychloroquine) 400 mg (2 x 200 mg) PO DAILY 90 days NS Shower Chair HEAVY DUTY trazodone 25 - 50 mg PO BEDTIME triamcinolone acetonide (Nasal Allergy) 2 sprays intranasal DAILY valacyclovir 1,000 mg PO q12h valsartan 160 mg PO DAILY Tobacco use date assessed: 09/04/24 Dental Screening Dental Screen Date: 03/20/25 Did you have a dental visit in the last 12 months?: No Did you have a dental problem in the last 6 months where you did not have access to dental care?: No Was dental information given to patient?: No HPI HPI Comments History of Present Illness Details This is a 39-year-old female with hypothyroidism, moderate recurrent major depression, lupus, hypertension and chronic kidney disease stage 3 that comes today for follow-up on her conditions. Last TSH was normal. Depression still present and she does follows with counseling. 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 Lupus is follow by Rheumatology and has been somewhat stable. Blood pressure elevated today but she has not take her valsartan. Her GFR is 57 and she is follow by Nephrology. Her protein has improved. No chest pain or shortness on breath. [facility] Medical History (Updated 03/20/25 @ 16:50 by Delores Silva MD) Osteoarthritis of knees, bilateral Hyperparathyroidism Vaginal discharge Physical exam Open wound of thumb Lupus Mild recurrent major depression Morbid obesity with BMI of 40.0-44.9, adult Vitamin D deficiency BMI 38.0-38.9,adult Intestinal malabsorption following gastrectomy Preeclampsia Obesity (BMI 30-39.9) Knee pain Hypertension Depression Proteinuria Autoimmune thyroiditis SLE (systemic lupus erythematosus related syndrome) Surgical History History of foot surgery History of open reduction and internal fixation (ORIF) procedure History of sleeve gastrectomy Status post biopsy of kidney Family History Father Asthma Mother No problems noted. Brother No problems noted. Brother No problems noted. Sister No problems noted. Social History Housing: Apartment Alcohol intake: never Patient Tobacco Use Status: Never used Tobacco e-Cigarette/Vaping Use: Never Used Second Hand Smoke Exposure: No service: No Current occupational status: unemployed Current occupational exposures/hazards: No Cognitive needs: No Hearing needs: No Vision needs: No Female Reproductive History Menstrual Age of Menarche: 11 Questionnaire PHQ-9 Over the last 2 weeks, how often have you been bothered by any of the following problems? 1. Little interest or pleasure in doing things: more than half the days 2. Feeling down, depressed, or hopeless: nearly every day 3. Trouble falling or staying asleep, or sleeping too much: more than half the days 4. Feeling tired or having little energy: more than half the days 5. Poor appetite or overeating: not at all 6. Feeling bad about yourself - or that you are a failure or have let yourself or your family down: nearly every day 7. Trouble concentrating on things, such as reading the newspaper or watching television: several days 8. Moving or speaking so slowly that other people could have noticed. Or the opposite - being so fidgety or restless that you have been moving around a lot more than usual: several days 9. Thoughts that you would be better off or of hurting yourself in some way: several days Total score: 15 Depression Screening Interpretation: Positive (no suicidal thoughts) Depression Screening Follow-up: Existing condition, In treatment, Community Mental Health Worker F/U and Follow-up Visit Requested Depression Screening Done: Yes 37216 - PHQ-9 Billing: Yes Source: Developed by Drs. Edmundo Miller, Ghislaine Robbins, Manav Walker and colleagues, with an educational daniel from [employer]. Thrive Questionnaire Date Thrive assessed: 09/04/24 I am a: Patient What is your living situation today?: I have a steady place to live Within the past 12 months, did the food you bought not last and you didn't have the money to get more?: Never true Within the past 12 months, did you worry whether your food would run out before you got money to buy more?: Never true Do you have trouble paying for medicines?: No Do you have trouble getting transportation to medical appointments?: No Do you have trouble paying your heating and electricity bill?: No Do you have trouble taking care of your child, family member or friend?: No Do you have trouble with day-to-day activities such as bathing, preparing meals, shopping, managing finances, etc.?: Yes Are you currently unemployed and looking for a job?: No Are you interested in more education?: No Please select the resources that you would like help with: None Currently or been in a relationship where the following occur: No concerns reported THRIVE Score: 0 AUDIT C Alcohol Use Questionnaire (AUDIT-C) 1. How often do you have a drink containing alcohol?: Never Total Score: 0 Score Reviewed/Action Taken: No BETHANIE-7 AMB Questionnaire BETHANIE-7 Date BETHANIE - 7 assessed: 09/04/24 Feeling nervous, anxious, or on edge: 3 = Nearly every day Not being able to stop or control worryin = More than half the days Worrying too much about different things: 2 = More than half the days Trouble relaxin = More than half the days Being so restless that it is hard to sit still: 3 = Nearly every day Becoming easily annoyed or irritable: 3 = Nearly every day Feeling afraid as if something awful might happen: 3 = Nearly every day Total BETHANIE-7 score (0-4 normal; 5-9 mild; 10-14 moderate; 15-21 severe): 18 Source: Developed by Drs. Edmundo Miller, Ghislaine Robbins, Manav Walker and colleagues, with an educational daniel from [employer]. BETHANIE-7 Assessment Billing BETHANIE-7 Assessment Tool: BETHANIE-7 Assessment 60777 Review of Systems Const All systems reviewed & are unremarkable except as noted in HPI and below Card Denies chest pain at rest, Denies chest pain with activity, Denies edema, Denies irregular heart rhythm, Denies claudication, Denies dyspnea, Denies dyspnea on exertion, Denies orthopnea, Denies paroxysmal nocturnal dyspnea and Denies slow heart rate Resp Denies cough, Denies dyspnea and Denies dyspnea on exertion Physical exam (Primary Care) Vital Signs: Last Vital Signs Pulse 63 03/20/25 16:30 BP 142/80 H 03/20/25 16:30 Pulse Ox 100 03/20/25 16:30 BMI result Body Mass Index 37.3 BMI Assessment/Plan discussion: High BMI High, discussed plan: lifestyle, weight reduction, dietary and physical activity Tobacco/Smoking Status: Tobacco use Status Tobacco use date assessed 09/04/24 09/04/24 13:33 Patient Tobacco Use Status Never used Tobacco 03/18/25 08:47 e-Cigarette/Vaping Use Never Used 09/04/24 13:33 Depression Screening Interpretation: Positive (no suicidal thoughts) Depression Screening Follow-up: Existing condition, In treatment, Community Mental Health Worker F/U and Follow-up Visit Requested Thrive Assessment: Date of Thrive Assessment Date Thrive assessed 09/04/24 10/06/24 09:11 Currently or been in a relationship where the following occur: No concerns reported Resp Effort & Inspection: normal respiratory effort Auscultation: clear to auscultation bilaterally Cardio Jugular venous distension: no JVD Rate: regular rate Rhythm: regular rhythm Heart sounds: S1 normal heart sound present and S2 normal heart sound present Extrem General: Yes full ROM Coding Level of Care Code Est Pt Level 4 (75049) Complex EM visit Add On G2211 Diagnoses Essential hypertension I10 Hypertension type: essential hypertension Hypothyroidism E03.9 Stage 3b chronic kidney disease N18.32 Chronic kidney disease stage 3 subtype: stage 3b (GFR 30-44) SLE (systemic lupus erythematosus related syndrome) M32.9 Moderate recurrent major depression F33.1 Additional Codes PHQ-9 - 83565 - PHQ-9 Billing: Yes ([id number]) BETHANIE-7 Assessment Billing - BETHANIE-7 Assessment Tool: BETHANIE-7 Assessment 45698 ([id number]) Time Spent (min) 21 Assessment & Plan Assessment & Plan (1) Hypertension: Code(s): I10 - Essential (primary) hypertension Category: Medical Qualifiers: Hypertension type: essential hypertension Qualified Code(s): I10 - Essential (primary) hypertension (2) Hypothyroidism: Code(s): E03.9 - Hypothyroidism, unspecified Category: Medical (3) CKD (chronic kidney disease) stage 3, GFR 30-59 ml/min: Code(s): N18.30 - Chronic kidney disease, stage 3 unspecified Category: Medical Qualifiers: Chronic kidney disease stage 3 subtype: stage 3b (GFR 30-44) Qualified Code(s): N18.32 - Chronic kidney disease, stage 3b (4) SLE (systemic lupus erythematosus related syndrome): Comment: Inflammatory arthritis is not controlled. Synovitis resolved with prednisone course. At this time she is not on DMARD therapy due to miscommunication. She experienced explosive water diarrhea on hydroxychloroquine. She is unable to split dose of hydroxychloroquine because she forgets to take the evening dose. Brand Plaquenil was approved. Rheumatology history: Positive DELORES 1:160, low C3, indeterminate double-stranded DNA. 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 HCQ 2020- changed to Plaquenil due to side effect of explosive watery diarrhea on hydroxychloroquine 400 mg q.d. , Leflunomide 2023 - Code(s): M32.9 - Systemic lupus erythematosus, unspecified Category: Medical (5) Moderate recurrent major depression: Code(s): F33.1 - Major depressive disorder, recurrent, moderate Category: Medical Plan Continue current meds. Follow-up with counseling. Follow-up with rheumatology. Follow-up with nephrology. Labs will be repeated in the next 4 months. Orders: Orders Lipid Panel 4 Months E78.5 - Hyperlipidemia, unspecified IRON PROFILE 4 Months D64.9 - Anemia, unspecified Vitamin B12 and Folate 4 Months E53.8 - Deficiency of other specified B group vitamins Complete Blood Count Auto Diff 4 Months D64.9 - Anemia, unspecified Vitamin D 25-OH Total 4 Months E55.9 - Vitamin D deficiency, unspecified Comprehensive [place]. Panel Fast 4 Months N18.32 - Chronic kidney disease, stage 3b Thyroid Stimulating Hormone 4 Months E03.9 - Hypothyroidism, unspecified
[2025-03-20 16:30] VITALS: BP 142/80; PULSE 63; O2SAT 100; BMI 37.3
--- OUTSIDE RECORDS SUMMARY | 2025-03-20 18:56 | XMS_ITS | Clinical Summary ---
Author Organization [facility] Address [address] [place] [address] Phone Care Team Providers Care Lodging Manager Name Role Phone Delores Mancia MD Primary Care Provid er Delores Mancia MD Unavailable [phone] Allergies Active Allergy Reactions Criticality Noted Date [...] topic Medical Devices Not on file [facility] [place] [facility] [place] [facility] Care Teams Lodging Manager Relationship Specialty Start Date End Date Delores Mancia MD [address] [place] [address] PCP - General Internal Medicine 07/07/23 Delores Mancia MD [address] [place] [address] 07/07/23 Additional Source Comments The information contained in this document represents components of the legal health record. It is not the complete legal health record.[facility]
--- OUTSIDE RECORDS SUMMARY | 2025-03-20 18:56 | XMS_ITS | Clinical Summary ---
Author Organization [facility] Facility Address [address] [place] [address] Care Team Providers Care Operating System Designer Name Role Phone Delores Mancia MD Primary Care Provider [phone] Allergies Active Allergy Reactions Criticality Noted Date [...] of the [facility] [phone] Darci Gamble MD from Last 3 Months [...] Visit [facility] [address] [place] [address] Darci Gamble MD 06[address] [facility] [address] [place] [address] Health Maintenance Due Date Last Done Comments Pneumococcal Vaccine: Peds ( 0 to 5 Years) and At-Risk Patients (6 to 49 Years) (1 of 2 - PCV) 11/24/2002 Influenza Vaccine (#1) 2025 2, 05/12/2021, 05/05/2020, Additional history exists Hepatitis B Vaccine Completed 09/07/1998, 05/06/1998, 02/17/1998 Insurance [facility] Medicaid [facility] Medicaid Care Teams Operating System Designer Relationship Specialty Start Date End Date Delores Mancia MD [address] [place], [place] PCP - General 07/20/20
--- OUTSIDE RECORDS SUMMARY | 2025-03-20 18:56 | XMS_ITS | Clinical Summary ---
Author Organization [facility] Address [address] [place] [address] Care Team Providers Care Burner Machine Operator Name Role Phone Delores Mancia MD [...] age to complete this topic Care Teams Burner Machine Operator Relationship Specialty Start Date End Date Delores Mancia MD 2 [facility] , [address] [facility] D[facility] [place] [address] PCP - General Internal Medicine 12/13/23
--- OUTSIDE RECORDS SUMMARY | 2025-03-20 18:56 | XMS_ITS | Clinical Summary ---
Author Organization [employer] Address [address] [place] [address] 7[address] [place] [address] Care Team Providers Care Alberene Stone Setter Name Role Phone Unavailable Primary Care Provider [...] patient's age to complete this topic [place] [address] [place] [address] ACO
== END 2025-03-20 16:48 | disposition home or self-care (01) ==
LOC: HO.HMCH 16:22
PROVIDERS: PCP Internal Medicine; Visit Provider Internal Medicine
DX: I12.9 Hypertensive chronic kidney disease with stage 1 through stage 4 chronic kidney disease, or unspecified chronic kidney disease (principal); N18.32 Chronic kidney disease, stage 3b; M32.9 Systemic lupus erythematosus, unspecified; F33.1 Major depressive disorder, recurrent, moderate; E03.9 Hypothyroidism, unspecified

== ENCOUNTER → 2025-03-20 16:22 | Outpatient (BNVA) | payer OTHER, SELFPAY | PROVIDERS: PCP Internal Medicine; Visit Provider Internal Medicine | DX: I12.9 Hypertensive chronic kidney disease with stage 1 through stage 4 chronic kidney disease, or unspecified chronic kidney disease (principal); N18.32 Chronic kidney disease, stage 3b; E03.9 Hypothyroidism, unspecified; M32.9 Systemic lupus erythematosus, unspecified; F33.1 Major depressive disorder, recurrent, moderate; Z13.31 Encounter for screening for depression | CPT/HCPCS: 96127; 99212 ==

== ENCOUNTER 2025-03-26 08:32 | Outpatient (AMB) | payer OTHER, SELFPAY ==
--- OUTSIDE RECORDS SUMMARY | 2024-04-15 14:04 | XMS_ITS | Encounter Summary ---
Author Organization [facility] Address [address] [place] [address] Care Team Providers Care Rn Hospice Name Role Phone Delores Silva MD Primary Care Provider [phone] Encounter Details Date Type Department Care Team [...] AM EDT Office Visit Bariatric Surgery - [address] [place] [phone] Ana Lilia Bruce, TRISTA [address] [place] [address] documented as of this encounter Visit Diagnoses Not on filedocumented in this encounter Care Teams Rn Hospice Relationship Specialty Start Date End Date Delores Silva MD [address] [facility] , [address] [facility] Physician Associ D/B/A: [facility] [place], [place] PCP - General Internal Medicine 02/09/22 documented as of this encounter
[2025-03-26 08:38] VITALS: PULSE 95; O2SAT 95; BMI 37.2
--- NOTE | 2025-03-26 08:38 | A.OFFVIS_ITS ---
Vital Signs 03/26/25 08:38 Height 5 ft 4 in Weight 216 lb 11.43 oz BMI 37.2 Pulse 95 Pulse Source Pulse Oximeter Pulse Oximetry (%) 95 Oxygen Delivery Method Room Air Intake Visit Reasons: 3 months Intake Note: Patient present today for RA. Accompanied by: Self / Same As Patient Allergies metformin (METFORMIN) Allergy (Intermediate, Verified 03/26/25 08:39) INFLAMMED GUMS, red gums, redness of gums doxycycline Adverse Reaction (Intermediate, Verified 03/26/25 08:39) Itching HPI HPI 3 months: Details: Feel heavy and swollen from knees down. She recieved euflexxa 01/2025. SHe has not been able to loose more weight. Bariatic surgery 07/2024. MS hours and stiffness at night. She continues to experience pain in her hand. Denies fevers, dyspnea, pleurisy, oral ulcers, sicca symptoms, Raynaud's phenomenon. +frothy urine. She followed up with nephrology and was told that proteinuria is stable. Taking leflunomide twice a week because she forgets to take it with busy schedule with taking care of her children. MS hours. PENDING SALE TO [facility] Medical History Osteoarthritis of knees, bilateral Hyperparathyroidism Vaginal discharge Physical exam Open wound of thumb Lupus Mild recurrent major depression Morbid obesity with BMI of 40.0-44.9, adult Vitamin D deficiency BMI 38.0-38.9,adult Intestinal malabsorption following gastrectomy Preeclampsia Obesity (BMI 30-39.9) Knee pain Hypertension Depression Proteinuria Autoimmune thyroiditis SLE (systemic lupus erythematosus related syndrome) Surgical History History of foot surgery History of open reduction and internal fixation (ORIF) procedure History of sleeve gastrectomy Status post biopsy of kidney Family History Father Asthma Mother No problems noted. Brother No problems noted. Brother No problems noted. Sister No problems noted. Social History Housing: Apartment Alcohol intake: never Patient Tobacco Use Status: Never used Tobacco e-Cigarette/Vaping Use: Never Used Second Hand Smoke Exposure: No service: No Current occupational status: unemployed Current occupational exposures/hazards: No Cognitive needs: No Hearing needs: No Vision needs: No Female Reproductive History Menstrual Age of Menarche: 11 Physical Exam Vital Signs: Last Vital Signs Pulse 95 03/26/25 08:38 Pulse Ox 95 03/26/25 08:38 Oxygen Delivery Method Room Air 03/26/25 08:38 BMI result Body Mass Index 37.2 General: Non-toxic, NAD. Speaking full sentences. Skin: Warm dry throughout. Legs symmetrical in size and shape bilaterally. No R knee or RLE edema, erythema or ecchymosis Eye: EOMI Respiratory: No respiratory distress or stridor Cardiac: DP pulse intact RLE MSK: Full ROM with flexion/extension R knee. DIffuse ttp medial and lateral joint line of knee. Minimal lateral tibial plateau ttp R knee. No laxity felt with varus or valgus force applied R knee Neurology: Alert. No aphasia or facial droop. Gait without abnormality Psych: Good mood and affect Const Other: General: Comfortable CVS: RRR Respiratory: clear to auscultation bilaterally. Good respiratory effort Skin: No lesions seen MSK:Tender bilateral MCPs, PIPs, wrists, and shoulders. No synovitis. Mild Valgus deformity of bilateral knees. Normal range of motion of upper extremities and lower extremities. Assessment & Plan Assessment & Plan (1) SLE (systemic lupus erythematosus related syndrome): Comment: Inflammatory arthritis is not controlled. She has not been compliant with leflunomide. We discussed scheduling leflunomide in the morning when she wakes up for improved compliance. She experienced explosive water diarrhea on hydroxychloroquine. She is unable to split dose of hydroxychloroquine because she forgets to take the evening dose. Brand Plaquenil was approved. We were then told that Plaquenil was denied. Patient has been unable to receive Plaquenil from her pharmacy. Insurance needs to get in touch with pharmacy to fix NDC code attached to Plaquenil rx. Kaylen will contact our office as soon as it is fixed. I spent 20 minutes on the phone speaking with Kaylen from patient's insurance. Rheumatology history: Positive KEREN 1:160, low C3, indeterminate double-stranded DNA. 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 HCQ 2020- changed to Plaquenil due to side effect of explosive watery diarrhea on hydroxychloroquine 400 mg q.d. , Leflunomide 2023 - Code(s): M32.9 - Systemic lupus erythematosus, unspecified Category: Medical Plan: Start Plaquenil 400 mg daily. Eye exam OCT and VF ok 09/19/2023 per note reviewed from [facility]. [facility] 08/2024 VF no toxicity from hydroxychloroquine. 12/2024 OCT ok. Eye exam for HCQ due yearly. Take leflunomide 20mg daily. She will try to schedule it in the morning. Avoid oral NSAIDs in setting of gastric bypass surgery and CKD Return to clinic in 3 months (2) Osteoarthritis of right knee: Comment: Initial improvement after gel injections (bilateral knees) 11/2024 but now experiencing increase pain. Failed Tylenol. Unable to keep hinged brace on. Compression sleeve did not fit. Gel injection 2022 left knee provided her 2 years of benefit given to her by Orthopedic surgery. Code(s): M17.11 - Unilateral primary osteoarthritis, right knee Category: Medical Qualifiers: Osteoarthritis type: primary Qualified Code(s): M17.11 - Unilateral primary osteoarthritis, right knee Plan: Contraindication to oral NSAID use due to history of bariatric surgery Follow up with orthopedic surgery (3) Fibromyalgia: Code(s): M79.7 - Fibromyalgia Category: Medical Plan: Defer further management to PCP with consideration of neuropsychiatric medication that are indicated for fibromyalgia management (4) Proteinuria: Comment: Follows with nephrology. Code(s): R80.9 - Proteinuria, unspecified Category: Medical Qualifiers: Proteinuria type: unspecified Qualified Code(s): R80.9 - Proteinuria, unspecified Plan: Labs for urine studies ordered to assess lupus activity Plan . Medications: Refilled Plaquenil (hydroxychloroquine) Dispense brand only. No PA needed 400 mg (2 x 200 mg) PO DAILY 180 tabs 1RF 90 days NS Coding Level of Care Code Est Pt Level 5 (90402) Complex EM visit Add On G2211 Diagnoses SLE (systemic lupus erythematosus related syndrome) M32.9 Primary osteoarthritis of right knee M17.11 Osteoarthritis type: primary Fibromyalgia M79.7 Proteinuria, unspecified type R80.9 Proteinuria type: unspecified
--- OUTSIDE RECORDS SUMMARY | 2025-03-26 09:46 | XMS_ITS | Clinical Summary ---
Author Organization [employer] Address [address] [place] [address] [address] [place] [address] Care Team Providers Care Machine Container Washer Name Role Phone Unavailable Primary Care Provider [...] patient's age to complete this topic Insurance [place] [address] ACO
--- OUTSIDE RECORDS SUMMARY | 2025-03-26 09:46 | XMS_ITS | Clinical Summary ---
Author Organization [facility] Address [address] [place] [address] Care Team Providers Care Christian Science Healer Name Role Phone Delores Mancia MD Primary Care Provider [phone] Allergies Active Allergy Reactions Criticality Noted Date [...] Refill [facility] [id number] Darci Gamble MD from Last 3 Months [...] Visit [facility] [address] [place] [phone] Darci Gamble MD [address] [facility] [address] [place] [address] Health Maintenance Due Date Last Done Comments Pneumococcal Vaccine: Peds ( 0 to 5 Years) and At-Risk Patients (6 to 49 Years) (1 of 2 - PCV) 11/24/2002 Influenza Vaccine (#1) 2025 2, 05/12/2021, 05/05/2020, Additional history exists Hepatitis B Vaccine Completed 09/07/1998, 05/06/1998, 02/17/1998 Insurance [employer] Medicaid [employer] Medicaid Care Teams Christian Science Healer Relationship Specialty Start Date End Date Delores Mancia MD [address] [place] PCP - General 07/20/20
--- OUTSIDE RECORDS SUMMARY | 2025-03-26 09:46 | XMS_ITS | Clinical Summary ---
Author Organization [facility] Address [address] [place] [address] Care Team Providers Care Tribal Council Member Name Role Phone Delores Mancia MD Primary [...] age to complete this topic Care Teams Tribal Council Member Relationship Specialty Start Date End Date Delores Mancia MD [address] [facility] , [address] [facility] D/B/A: [facility] [place] [address] PCP - General Internal Medicine 12/13/23
--- OUTSIDE RECORDS SUMMARY | 2025-03-26 09:46 | XMS_ITS | Clinical Summary ---
Author Organization [facility] Address [address] [place] [address] Phone Care Team Providers Care Gravity Prospecting Observer Helper Name Role Phone Delores Silva MD Primary Care Provider [phone] Allergies Active Allergy Reactions Criticality Noted Date [...] Morbid (severe) obesity due to excess calories ([facility] V24, [facility] V28) 06/18/2024 Class 2 severe obesity due t o excess calories with serious comorbidity and body mass index (BMI) of 36.0 to 36.9 in adult ([facility] V24, [facility] V28) 04/12/2024 Absolute anemia 03/22/2024 Encounters Date Type Department Care Team Description 12/31/2024 9:15 AM EDT Office Visit Bariatric Surgery - [address] [address] Ana Lilia Bruce PA Class 2 severe obesity due to excess calories with serious comorbidity and body mass index (BMI) of 36.0 to 36.9 in adult ([facility] V24, [facility] V28) (Primary Dx); Bariatric surgery status from [...] Arthritis Joint pain Lupus (systemic lupus erythematosus) ([facility] V2 4, [facility] V28) Social History Tobacco Use Types Packs/Day [...] AM EDT Office Visit Bariatric Surgery - [address] [place] [address] Ana Lilia Bruce, TRISTA [address] [place] [phone] Health Maintenance Due Date Last Done [...] this topic Medical Devices Implanted Type Area Consultant Electronics Device Identifier Shelf Expiration Date Model / [...] LAB CHEMISTRY METHOD 09/06/2024 11:20 AM EST [facility] Potassium 3.8 3.5 - 5.5 mmol/L LAB CHEMISTRY METHOD 09/06/2024 11:20 AM [facility] Chloride 110 96 - 110 mmol/L LAB CHEMISTRY METHOD 09/06/2024 11:20 AM [facility] CO2 26 21 - 32 mmol/L LAB CHEMISTRY METHOD 09/06/2024 11:20 AM [facility] Anion Gap 5 3 - 11 LAB CHEMISTRY METHOD 09/06/2024 11:20 AM [facility] Glucose 82 70 - 100 mg/dL LAB CHEMISTRY METHOD 09/06/2024 11:20 AM [facility] BUN 12 5 - 25 mg/dL LAB CHEMISTRY METHOD 09/06/2024 11:20 AM [facility] Creatinine 1.05 0.50 - 1.10 mg/dL LAB CHEMISTRY METHOD 09/06/2024 11:20 AM [facility] eGFR 69 >=60 mL/min/1. 73m2 LAB CHEMISTRY METHOD 09/06/2024 11:20 AM [facility] Comment:Calculation based on the Chronic Kidney Disease Epidemiology Collaboration (CKD-EPI) equation refit without adjustment for race. BUN/Creatinine Ratio 11.4 LAB CHEMISTRY METHOD 09/06/2024 11:20 AM [facility] Calcium 8.8 8.5 - 10.5 mg/dL LAB CHEMISTRY METHOD 09/06/2024 11:20 AM [facility] AST (SGOT) 14 10 - 42 unit/L LAB CHEMISTRY METHOD 09/06/2024 11:20 AM [facility] ALT (SGPT) 22 10 - 60 unit/L LAB CHEMISTRY METHOD 09/06/2024 11:20 AM [facility] Alkaline Phosphatase 95 42 - 121 unit/L LAB CHEMISTRY METHOD 09/06/2024 11:20 AM [facility] Total Protein 5.7(L) 6.0 - 8.0 g/dL LAB CHEMISTRY METHOD 09/06/2024 11:20 AM EST [facility] Albumin 2.8(L) 3.2 - 5.0 g/dL LAB CHEMISTRY METHOD 09/06/2024 11:20 AM EST [facility] Total Bilirubin 0.4 0.0 - 1.4 mg/dL LAB CHEMISTRY METHOD 09/06/2024 11:20 AM EST [facility] Blood Venous blood specimen / Unknown Venipuncture / Unknown 09/06/2024 8:47 AM EST 09/06/2024 9:07 AM EST Ana Lilia [facility] LAB BLOOD ORDERABLES Final R esult [facility] ([facility] [address] [place] [address], [place] [phone] * Lipid panel (09/11/2023) LDL/HDL Ratio 3 0 - 4 Triglycerides 129 0 - 150 mg/dL Cholesterol 159 0 - 200 mg/dL HDL 47 >=40 mg/dL LDL Cholesterol 87 0 - 100 mg/dL Blood Venous blood specimen / Unknown Historical Provider LAB BLOOD ORDERABLES Sonam l Result from Last 3 Months or Most Recently Relevant to Health Maintenance Insurance [facility] MEDICAID - [place] Care Teams Gravity Prospecting Observer Helper Relationship Specialty Start Date End Date Delores Silva MD [address] [facility] , [address] [facility] D/B/A: [facility] [place] PCP - General Internal Medicine 02/09/22
--- OUTSIDE RECORDS SUMMARY | 2025-03-26 09:46 | XMS_ITS | Clinical Summary ---
Author Organization [facility] Address [address] [place] [address] Phone Care Team Providers Care Outreach Rep Name Role Phone Delores Mancia MD Primary Care Provid er Delores Mancia MD Unavailable [phone] Allergies Active Allergy Reactions Criticality Noted Date [...] topic Medical Devices Not on file Insurance [facility] [facility] [facility] [place] [facility] Care Teams Outreach Rep Relationship Specialty Start Date End Date Delores Mancia MD [address] [place] [address] PCP - General Internal Medicine 07/07/23 Delores Mancia MD [address] [place] [address] 07/07/23 Additional Source Comments The information contained in this document represents components of the legal health record. It is not the complete legal health record.[facility]
== END 2025-03-26 09:18 | disposition home or self-care (01) ==
LOC: HO.RHES 08:33
PROVIDERS: PCP Internal Medicine; Visit Provider Internal Medicine Rheumatology
DX: M32.9 Systemic lupus erythematosus, unspecified (principal); M17.11 Unilateral primary osteoarthritis, right knee; M79.7 Fibromyalgia; R80.9 Proteinuria, unspecified
CPT/HCPCS: 99214

== ENCOUNTER → 2025-03-26 08:32 | Outpatient (BNVA) | payer OTHER, SELFPAY | PROVIDERS: Visit Provider Internal Medicine Rheumatology | DX: M17.11 Unilateral primary osteoarthritis, right knee (principal); M32.9 Systemic lupus erythematosus, unspecified; M79.7 Fibromyalgia; R80.9 Proteinuria, unspecified | CPT/HCPCS: 99212 ==

== ENCOUNTER 2025-04-22 08:39 | Outpatient (REF) | payer OTHER, SELFPAY ==
[2025-04-22 12:58] LABS: Chlamydia pneumoniae PCR Not Detected (Not Detect.); Coronavirus 229E PCR Not Detected (Not Detect.); Coronavirus HKU1 PCR Not Detected (Not Detect.); Coronavirus NL63 PCR Not Detected (Not Detect.); Coronavirus OC43 PCR Not Detected (Not Detect.); RSV PCR Not Detected (Not Detect.); Rhino/Enterovirus PCR Not Detected (Not Detect.)
[2025-04-22 13:02] LABS: Influenza A H1 PCR Not Detected (Not Detect.); Influenza A H1-2009 PCR Not Detected (Not Detect.); Influenza A H3 PCR Not Detected (Not Detect.); SARS-CoV-2 PCR Not Detected (Not Detect.)
== END 2025-04-22 08:40 | disposition home or self-care (01) ==
LOC: HO.LNP 08:39
PROVIDERS: PCP Internal Medicine; Visit Provider Physician Assistant Medical
DX: J02.9 Acute pharyngitis, unspecified (principal); R05.9 Cough, unspecified; R51.9 Headache, unspecified; H92.09 Otalgia, unspecified ear
CPT/HCPCS: 87633; 99212

== ENCOUNTER 2025-04-22 08:39 | Outpatient (AMB) | payer OTHER, SELFPAY ==
--- OUTSIDE RECORDS SUMMARY | 2024-04-15 14:04 | XMS_ITS | Encounter Summary ---
Author Organization [facility] Address [address] [place] [address] Care Team Providers Care Case Therapist Name Role Phone Delores Silva MD Primary Care Provider [phone] Encounter Details Date Type Department Care Team ([facility] Contact Info) Description 04/15/2024 2:04 PM [...] 10:02 PM EST Mary Conrad RN * [place] Suicide Severity Rating Scale (Screener/Recent Self-Report) Question [...] AM EDT Office Visit Bariatric Surgery - [address] [place] [address] Ana Lilia Bruce PA [address] [place] [address] documented as of this encounter Visit Diagnoses Not on filedocumented in this encounter Care Teams Case Therapist Relationship Specialty Start Date End Date Delores Silva MD [address] [place] [address] , [address] [facility] D/B/A: [facility] [place], [place] PCP - General Internal Medicine 02/09/22 documented as of this encounter
[2025-04-22 08:53] VITALS: BP 110/66; PULSE 64; RESP 18; TEMP 36.7; O2SAT 99; BMI 37.1
--- NOTE | 2025-04-22 08:53 | AM.OFFWIN_ITS ---
Intake Vital Signs 04/22/25 08:53 Height 5 ft 4 in Weight 216 lb BMI 37.1 BP 110/66 Blood Pressure Location Lt brachial Position Sitting Respiration 18 Pulse 64 Pulse Source Pulse Oximeter Temp 98.1 F Temp Source Oral Pulse Oximetry (%) 99 Oxygen Delivery Method Room Air Intake Visit Reasons: EP Ear pain, headache, sinus pressure, sore throat Intake Note: Pt is here today for a walk in visit. Pt c/o headaches, L ear pain and sinus pressure, sore throat for 2 days now. Patient Tobacco Use Status: Never used Tobacco Allergies metformin (METFORMIN) Allergy (Intermediate, Verified 04/22/25 08:57) INFLAMMED GUMS, red gums, redness of gums doxycycline Adverse Reaction (Intermediate, Verified 04/22/25 08:57) Itching HPI HPI Comments History of Present Illness Details History - The patient is a 39-year-old female pr esenting with a sore throat, ear pain, and cough. - The sore throat is accompanied by unil ateral ear pain and a sensation of pressure. - The patient has been using allergy med ications without significant improvement. - Additional symptoms include headaches and a cough, which intensifies the throat discomfort. - The patient denies fever and smoking h istory. - The patient's daughter had a confirmed streptococcal infection a month prior. - She denies fever, chills, ALONZO, abd pain , n/v/d. Physical Exam General: Cooperative, healthy appearing, comfortable and no acute distress Orientation/consciousness: Patient oriented x3 Limitations: No limitations Head: Normal to inspection Ears: Hearing grossly normal bilaterally, external ears normal and TM's normal bilaterally Nose: Normal external nose present, normal nares present, and no nasal discharge present. Face and sinus: Sinuses nontender to palpation. Mouth: Normal oral and palatal mucosa present and moist mucous membranes noted. Throat: Tonsils normal. Uvula is midline. Posterior oropharynx with erythema and no exudates. Eyes: Appearance normal, both eyes and all related structures Neck: Normal visual inspection, full ROM. No lymphadenopathy noted. Respiratory: Clear to auscultation bilaterally. Normal respiratory effort, able to speak in complete sentences. No respiratory distress, not tachypneic, no tripod positioning and no use of accessory muscles. Cardiovascular: Regular rate and rhythm. Normal S1 and S2 Skin: No rashes or lesions noted Patient was informed and verbally consented to the use of an ambient scribe for clinic note documentation during this visit [facility] Medical History Osteoarthritis of knees, bilateral Hyperparathyroidism Vaginal discharge Physical exam Open wound of thumb Lupus Mild recurrent major depression Morbid obesity with BMI of 40.0-44.9, adult Vitamin D deficiency BMI 38.0-38.9,adult Intestinal malabsorption following gastrectomy Preeclampsia Obesity (BMI 30-39.9) Knee pain Hypertension Depression Proteinuria Autoimmune thyroiditis SLE (systemic lupus erythematosus related syndrome) Surgical History History of foot surgery History of open reduction and internal fixation (ORIF) procedure History of sleeve gastrectomy Status post biopsy of kidney Family History Father Asthma Mother No problems noted. Brother No problems noted. Brother No problems noted. Sister No problems noted. Social History Housing: Apartment Alcohol intake: never Patient Tobacco Use Status: Never used Tobacco e-Cigarette/Vaping Use: Never Used Second Hand Smoke Exposure: No service: No Current occupational status: unemployed Current occupational exposures/hazards: No Cognitive needs: No Hearing needs: No Vision needs: No Female Reproductive History Menstrual Age of Menarche: 11 Review of Systems Const All systems reviewed & are unremarkable except as noted in HPI and below Physical Exam Vital Signs: Last Vital Signs Temp 98.1 F 04/22/25 08:53 Pulse 64 04/22/25 08:53 Resp 18 04/22/25 08:53 BP 110/66 04/22/25 08:53 Pulse Ox 99 04/22/25 08:53 Oxygen Delivery Method Room Air 04/22/25 08:53 BMI result Body Mass Index 37.1 Assessment & Plan Assessment & Plan (1) URI (upper respiratory infection): Code(s): J06.9 - Acute upper respiratory infection, unspecified Qualifiers: URI type: unspecified viral URI Qualified Code(s): J06.9 - Acute upper respiratory infection, unspecified Plan Most likely URI vs covid vs RSV vs flu vs viral illness vs strep Rapid strep was negative plan - Rapid strep test planned to exclude streptococcal infection. - Viral panel done in the office. - continue with OTC medications - tylenol or motrin as needed for pain - diet as tolerated - will all her with the results - follow up with PCP Orders: Orders AMB Rapid Strep Screen Today J02.9 - Acute pharyngitis, unspecified Resp Pathogen Panel - [facility] Today J06.9 - Acute upper respiratory infection, unspecified Coding Level of Care Code Est Pt Level 3 (02397) Diagnoses Viral upper respiratory tract infection J06.9 URI type: unspecified viral URI
--- OUTSIDE RECORDS SUMMARY | 2025-04-22 09:03 | XMS_ITS | Clinical Summary ---
Author Organization [facility] Address [address] [place] [address] Phone Care Team Providers Care Spa Manager Name Role Phone Delores Silva MD Primary Care Provider [phone] Allergies Active Allergy Reactions Criticality Noted Date [...] Morbid (severe) obesity due to excess calories ([facility] V24, [facility] V28) 06/18/2024 Class 2 severe obesity due t o excess calories with serious comorbidity and body mass index (BMI) of 36.0 to 36.9 in adult 04/12/2024 Absolute anemia 03/22/2024 Immunizations Immunization Administration Dates Next Due Pfizer SARS-CoV-2 COVID-19, mRNA, LNP-S, preservative free 10/04/2022 Surgical History Surgery Date Site/Laterality Comments BARIATRIC SURGERY 2019 PROCEDURE:BARIATRIC SURGERY ORIF HIP FRACTURE Right orif r hip from dislocation Medical History Medical History Date Comments Anemia DX:Anemia Hypertension DX:Hypertension Depression DX:Depression Hypothyroidism not taking meds Anxiety Arthritis Joint pain Lupus (systemic lupus erythematosus) ([facility] V2 4, [facility] V28) Social History Tobacco Use [...] AM EDT Office Visit Bariatric Surgery - [place] [address] [place] [address] Ana Lilia Bruce PA [address] [place] [address] Health Maintenance Due Date Last Done [...] 06/23/2030 06/23/2020, 05/23/2016, 10/28/2009, Additional history exists RSV Immunization Adult Patients (1 - 1-dose 75+ series) 11/24/2058 IPV [...] this topic Medical Devices Implanted Type Area Pottery Striper Device Identifier Shelf Expiration Date Model / [...] 09/06/2024 11:20 AM EST [facility] [place] 110 96 - 110 mmol/L LAB CHEMISTRY METHOD 09/06/2024 11:20 AM EST [facility] CO2 26 21 - 32 mmol/L LAB CHEMISTRY METHOD 09/06/2024 11:20 AM EST [facility] Anion Gap 5 3 - 11 LAB CHEMISTRY METHOD 09/06/2024 11:20 AM [facility] Glucose 82 70 - 100 mg/dL LAB CHEMISTRY METHOD 09/06/2024 11:20 AM [facility] BUN 12 5 - 25 mg/dL LAB CHEMISTRY METHOD 09/06/2024 11:20 AM [facility] Creatinine 1.05 0.50 - 1.10 mg/dL LAB CHEMISTRY METHOD 09/06/2024 11:20 AM [facility] eGFR 69 >=60 mL/min/1. 73m2 LAB CHEMISTRY METHOD 09/06/2024 11:20 AM [facility] Comment:Calculation based on the Chronic Kidney Disease Epidemiology Collaboration (CKD-EPI) equation refit without adjustment for race. BUN/Creatinine Ratio 11.4 LAB CHEMISTRY METHOD 09/06/2024 11:20 AM [facility] Calcium 8.8 8.5 - 10.5 mg/dL LAB CHEMISTRY METHOD 09/06/2024 11:20 AM [facility] AST (SGOT) 14 10 - 42 unit/L LAB CHEMISTRY METHOD 09/06/2024 11:20 AM [facility] ALT (SGPT) 22 10 - 60 unit/L LAB CHEMISTRY METHOD 09/06/2024 11:20 AM [facility] Alkaline Phosphatase 95 42 - 121 unit/L LAB CHEMISTRY METHOD 09/06/2024 11:20 AM [facility] Total Protein 5.7(L) 6.0 - 8.0 g/dL LAB CHEMISTRY METHOD 09/06/2024 11:20 AM [facility] Albumin 2.8(L) 3.2 - 5.0 g/dL LAB CHEMISTRY METHOD 09/06/2024 11:20 AM [facility] Total Bilirubin 0.4 0.0 - 1.4 mg/dL LAB CHEMISTRY METHOD 09/06/2024 11:20 AM [facility] Blood Venous blood specimen / Unknown Venipuncture / Unknown 09/06/2024 8:47 AM EST 09/06/2024 9:07 AM EST us Ana Lilia WESTON LAB BLOOD ORDERABLES Final R esult [facility] ([facility] [address] [place] [address], [place] [phone] * Lipid panel (09/11/2023) LDL/HDL Ratio 3 0 - 4 Triglycerides 129 0 - 150 mg/dL Cholesterol 159 0 - 200 mg/dL HDL 47 >=40 mg/dL LDL Cholesterol 87 0 - 100 mg/dL Blood Venous blood specimen / Unknown Historical Provider LAB BLOOD ORDERABLES Sonam l Result from Last 3 Months or Most Recently Relevant to Health Maintenance Insurance [facility] [employer] [facility] MEDICAID - [place] Care Teams Spa Manager Relationship Specialty Start Date End Date Delores Silva MD [address] [place] [address] , [address] [facility] Associ D/B/A: Alejandra Samuel [facility] Internal [facility] DIOR Roberts PCP - General Internal Medicine 02/09/22
--- OUTSIDE RECORDS SUMMARY | 2025-04-22 09:03 | XMS_ITS | Clinical Summary ---
Author Organization [facility] Facility Address [address] [place] [address] Care Team Providers Care Director Business Integration Name Role Phone Delores Mancia MD Primary Care Provider [phone] Allergies Active Allergy Reactions Criticality Noted Date [...] MOUTH 1 TIME EACH DAY. 45 tablet 03/13/2025 Active Active Problems Problem Noted Date Diagnosed [...] Encounters Date Type Department Care Team Description 04/04/2025 Office Communication [facility] [address] [phone] Naty Hargrove 04/04/2025 Office Communication [facility] [place] [address] [phone] Naty Hargrove 03/13/2025 Refill [facility] [address] [phone] Darci Gamble MD from Last 3 Months [...] Team (Late st Contact Info) Description 04/28/2025 1:15 PM EDT Office Visit [facility] [address] [address] Darci Gamble MD [address] [address] Health Maintenance Due Date Last Done Comments Pneumococcal Vaccine: Peds ( 0 to 5 Years) and At-Risk Patients (6 to 49 Years) (1 of 2 - PCV) 11/24/2002 Influenza Vaccine (#1) 2025 2, 05/12/2021, 05/05/2020, Additional history exists Hepatitis B Vaccine Completed 09/07/1998, 05/06/1998, 02/17/1998 Procedures Procedure Name Priority Date/Time Associated Diagnosis Comments ALT EXT LABS Routine 02/21/2025 from Last 3 Months Results * (ABNORMAL) ALT EXT LABS (02/21/2025) WBC 3.7 3.3 - 10.0 10*3/ML Red Blood Cell Count 3.90 Hemoglobin 10.3(A) 12.0 - 16.0 Hematocrit 32.2(A) 36.0 - 46.0 Platelets 239 150 - 399 10*3/UL MCV 82.6 82.0 - 108.0 Creatinine 1.07 0.50 - 1.10 mg/dL Spec Grav, UA 1.010 pH, UA 5.5 02/21/2025 Historical Provider LAB BLOOD ORDERABLES Sonam l Result from Last 3 Months Insurance [facility] Medicaid [facility] Medicaid Care Teams Director Business Integration Relationship Specialty Start Date End Date Delores Mancia MD [address] [place], [place] PCP - General 07/20/20
--- OUTSIDE RECORDS SUMMARY | 2025-04-22 09:03 | XMS_ITS | Clinical Summary ---
Author Organization [employer] Address [address] [place] [address] [address] [place] [address] Care Team Providers Care Db2 Developer Name Role Phone Unavailable Primary Care Provider [...] patient's age to complete this topic [place] [address] [address] [place] [address] ACO
--- OUTSIDE RECORDS SUMMARY | 2025-04-22 09:03 | XMS_ITS | Clinical Summary ---
Author Organization [facility] Address [address] [facility] [address] [place] [address] Phone Care Team Providers Care Spa Receptionist Name Role Phone Delores Mancia MD Primary Care Provid er Delores Mancia MD Unavailable [phone] Allergies Active Allergy Reactions Criticality Noted Date Comments Metformin 07/07/2023 Medications valsartan (DIOVAN) 160 MG tablet Take 160 mg by mouth daily. Active Active Problems No known active problems Social History Tobacco Use Types Packs/Day Years Used Date Smoking Tobacco: Never Assessed Education Answer Date Recorded Are you interested in more education? Not on eloi e 07/11/2023 Are you concerned about learning? [...] topic Medical Devices Not on file [facility] [place] [facility] [place] [facility] Care Teams Spa Receptionist Relationship Specialty Start Date End Date Delores Mancia MD [address] [place] [address] PCP - General Internal Medicine 07/07/23 Delores Mancia MD [address] [place] [address] 07/07/23 Additional Source Comments The information contained in this document represents components of the legal health record. It is not the complete legal health record.[facility]
--- OUTSIDE RECORDS SUMMARY | 2025-04-22 09:03 | XMS_ITS | Clinical Summary ---
Author Organization [facility] Address [address] [place] [address] Care Team Providers Care Test Engine Operator Name Role Phone Delores Mancia MD [...] age to complete this topic Care Teams Test Engine Operator Relationship Specialty Start Date End Date Delores Mancia MD [address] [facility] , [address] [facility] Physician Associ D/B/A: [facility] [place] [address] PCP - General Internal Medicine 12/13/23
== END 2025-04-22 10:40 | disposition home or self-care (01) ==
PROVIDERS: PCP Internal Medicine; Visit Provider Physician Assistant Medical
DX: J06.9 Acute upper respiratory infection, unspecified (principal)

== ENCOUNTER 2025-04-25 08:22 | Outpatient (REF) | payer OTHER, SELFPAY ==
--- OUTSIDE RECORDS SUMMARY | 2024-04-15 14:04 | XMS_ITS | Encounter Summary ---
Author Organization [facility] Address [address] [place] [address] Care Team Providers Care Food Expeditor Name Role Phone Delores Silva MD Primary Care Provider [phone] Encounter Details Date Type Department Care Team ([facility] Contact Info) Description 04/15/2024 2:04 PM [...] 10:02 PM EST Mary Conrad RN * [place] Suicide Severity Rating Scale (Screener/Recent Self-Report) Question [...] AM EDT Office Visit Bariatric Surgery - [address] [place] [address] Ana Lilia Bruce PA [address] [place] [address] documented as of this encounter Visit Diagnoses Not on filedocumented in this encounter Care Teams Food Expeditor Relationship Specialty Start Date End Date Delores Silva MD [address] [place] [address] , [address] [facility] D/B/A: [facility] [place], [place] PCP - General Internal Medicine 02/09/22 documented as of this encounter
--- OUTSIDE RECORDS SUMMARY | 2025-04-25 08:43 | XMS_ITS | Clinical Summary ---
Author Organization [facility] Facility Address [address] [place] [address] Care Team Providers Care Charging Machine Operator Name Role Phone Delores Mancia MD Primary Care Provider [phone] Allergies Active Allergy Reactions Criticality Noted Date [...] Office Communication [facility] [address] [phone] Naty Hargrove 04/04/2025 Office Communication [facility] [place] [address] [phone] Naty Hargrove 03/13/2025 Refill [facility] [address] [phone] Darci Gamble MD from Last 3 Months [...] Visit [facility] [address] [phone] Darci Gamble MD [address] [phone] Health Maintenance Due Date Last [...] l Result from Last 3 Months Insurance [facility] Medicaid [facility] Medicaid Care Teams Charging Machine Operator Relationship Specialty Start Date End Date Delores Mancia MD [address] [place], [place] PCP - General 07/20/20
--- OUTSIDE RECORDS SUMMARY | 2025-04-25 08:43 | XMS_ITS | Clinical Summary ---
Author Organization [employer] Address [address] [place] [address] 7t [place] [address] Care Team Providers Care Call Worker Person Name Role Phone Unavailable Primary Care Provider [...] patient's age to complete this topic [place] [address] [place] [address] ACO
--- OUTSIDE RECORDS SUMMARY | 2025-04-25 08:43 | XMS_ITS | Clinical Summary ---
Author Organization [facility] Address [address] [place] [address] Care Team Providers Care Framer Name Role Phone Delores Mancia MD Primary [...] age to complete this topic Care Teams Framer Relationship Specialty Start Date End Date Delores Mancia MD [address] [facility] , [address] [facility] Physician Associ D/B/A: [facility] [place] [address] PCP - General Internal Medicine 12/13/23
--- OUTSIDE RECORDS SUMMARY | 2025-04-25 08:44 | XMS_ITS | Clinical Summary ---
Author Organization [facility] Address [address] [facility] [address] [place] [address] Phone Care Team Providers Care Lane Attendant Name Role Phone Delores Mancia MD Primary Care Provid er Delores Mancia MD Unavailable [phone] Allergies Active Allergy Reactions Criticality Noted Date [...] topic Medical Devices Not on file Insurance [facility] [place] [facility] [place] [facility] Care Teams Lane Attendant Relationship Specialty Start Date End Date Delores Mancia MD [address] [place] [address] PCP - General Internal Medicine 07/07/23 Delores Mancia MD [address] [place] [address] 07/07/23 Additional Source Comments The information contained in this document represents components of the legal health record. It is not the complete legal health record.[facility]
--- OUTSIDE RECORDS SUMMARY | 2025-04-25 08:45 | XMS_ITS | Clinical Summary ---
Author Organization [facility] Address [address] [place] [address] Phone Care Team Providers Care Guide Domestic Tour Name Role Phone Delores Silva MD Primary Care Provider [phone] Allergies Active Allergy Reactions Criticality Noted Date [...] to excess calories ([facility] V24, [facility] V28) 06/18/2024 Class 2 severe [...] (systemic lupus erythematosus) ([facility] V2 4, [facility] V28) Social History Tobacco Use [...] AM EDT Office Visit Bariatric Surgery - [place] [address] [place] [address] Ana Lilia Bruce PA [address] [place] [address] Health Maintenance Due Date Last Done [...] this topic Medical Devices Implanted Type Area Site Damage Prevention Technician Device Identifier Shelf Expiration Date Model / [...] LAB CHEMISTRY METHOD 09/06/2024 11:20 AM EST [facility] Potassium 3.8 3.5 - 5.5 mmol/L LAB CHEMISTRY METHOD 09/06/2024 11:20 AM EST [facility] [place] 110 96 - 110 mmol/L LAB CHEMISTRY METHOD 09/06/2024 11:20 AM EST [facility] CO2 26 21 - 32 mmol/L LAB CHEMISTRY METHOD 09/06/2024 11:20 AM EST [facility] Anion Gap 5 3 - [...] g/dL LAB CHEMISTRY METHOD 09/06/2024 11:20 AM [facility] Albumin 2.8(L) 3.2 - 5.0 g/dL LAB CHEMISTRY METHOD 09/06/2024 11:20 AM [facility] Total Bilirubin 0.4 0.0 - 1.4 mg/dL LAB CHEMISTRY METHOD 09/06/2024 11:20 AM [facility] Blood Venous blood specimen / Unknown Venipuncture / Unknown 09/06/2024 8:47 AM EST 09/06/2024 9:07 AM EST us Ana Lilia WESTON LAB BLOOD ORDERABLES Final R esult [facility] [address] [place] [address], [place] [phone] * Lipid panel (09/11/2023) LDL/HDL Ratio 3 0 - 4 Triglycerides 129 0 - 150 mg/dL Cholesterol 159 0 - 200 mg/dL HDL 47 >=40 mg/dL LDL Cholesterol 87 0 - 100 mg/dL Blood Venous blood specimen / Unknown Historical Provider LAB BLOOD ORDERABLES Sonam l Result from Last 3 Months or Most Recently Relevant to Health Maintenance Insurance [facility] HEALTH [facility] MEDICAID - [place] Care Teams Guide Domestic Tour Relationship Specialty Start Date End Date Delores Silva MD [address] [place] [address] , [address] [facility] Physician Associ D/B/A: Alejandra Samuel In Internal Medicine DIOR Roberts PCP - General Internal Medicine 02/09/22
[2025-04-25 09:53] LABS: Appearance Urine Clear; Glucose Urine UA Negative (Negative); PH 6.0 (5.0-9.0); Specific Gravity - Urine 1.010 (1.005-1.025); UMIC TRIGGER UA YES
[2025-04-25 10:22] LABS: Anion Gap 9 (12-20); Blood Urea Nitrogen 18 mg/dL (9-16); Calcium 8.6 mg/dL (8.4-10.2); Carbon Dioxide 25 mmol/L (22-29); Chloride 112 mmol/L (96-108); Estimated Glomerular Filt Rate 53; Potassium 4.2 mmol/L (3.3-5.1); Sodium 142 mmol/L (135-145)
[2025-04-25 11:48] LABS: Microalbum/Creatinine Ratio Ur 304.3 ug/mg cr (<30); Protein/Creatinine Ratio, Ur 0.46 (<0.2); Total Protein Urine Random 29 mg/dL (<12)
== END 2025-04-25 08:23 | disposition home or self-care (01) ==
LOC: HO.LAB 08:22
PROVIDERS: PCP Internal Medicine; Visit Provider Internal Medicine Nephrology
DX: N18.2 Chronic kidney disease, stage 2 (mild) (principal); R80.9 Proteinuria, unspecified
CPT/HCPCS: 36415; 80051; 81001; 82043; 82310; 82565; 82570; 84156; 84520

== ENCOUNTER 2025-06-04 12:41 | Outpatient (AMB) | payer OTHER, SELFPAY ==
--- OUTSIDE RECORDS SUMMARY | 2024-04-15 13:04 | XMS_ITS | Encounter Summary ---
Author Organization [facility] Address [address] [place] [address] Care Team Providers Care Cook Italian Style Food Name Role Phone Delores Silva MD Primary Care Provider [phone] Encounter Details Date Type Department Care Team ([facility] Contact Info) Description 04/15/2024 2:04 PM EDT [...] 10:02 PM EST Mary Conrad RN * [place] Suicide Severity Rating Scale (Screener/Recent Self-Report) Question [...] Care Team (Late st Contact Info) Description 06/19/2025 8:00 AM EST Nutrition Bariatric Surgery - [address] [phone] Ruth Moore, RASHAWN [address] [place] [phone] 09/30/2025 9:15 AM EDT Office Visit Bariatric Surgery [address] [phone] Ana Lilia Bruce PA [address] [place] [address] documented as of this encounter Visit Diagnoses Not on filedocumented in this encounter Care Teams Cook Italian Style Food Relationship Specialty Start Date End Date Delores Silva MD [address] [place] [address] , [address] Physician Associ D/B/A: [facility] [place] PCP - General Internal Medicine 02/09/22 documented as of this encounter
[2025-06-04 12:44] VITALS: BP 112/68; PULSE 73; TEMP 36.8; O2SAT 96; BMI 36.4
--- NOTE | 2025-06-04 12:44 | AM.OFFWIN_ITS ---
Intake Vital Signs 06/04/25 12:44 Height 5 ft 4 in Weight 212 lb BMI 36.4 BP 112/68 Blood Pressure Location Rt brachial Position Sitting Pulse 73 Pulse Source Pulse Oximeter Temp 98.3 F Temp Source Oral Pulse Oximetry (%) 96 Oxygen Delivery Method Room Air Intake Visit Reasons: EP Possible cold sore Intake Note: Patient presents c/o cold sore in her nose since yesterday. Patient Tobacco Use Status: Never used Tobacco Allergies metformin (METFORMIN) Allergy (Intermediate, Verified 06/04/25 12:45) INFLAMMED GUMS, red gums, redness of gums doxycycline Adverse Reaction (Intermediate, Verified 06/04/25 12:45) Itching Do you need a note to return to daycare/school/sports/work: No HPI HPI Comments History of Present Illness Details History of Present Illness - The patient is a 39-year-old female pr esenting for evaluation of a recurrent herpes. - The current lesion is on the nose, sta rted two days ago, and presents with yellowish purulence before bubbling. - The patient reports a history of simil ar lesions, with the most recent one occurring three weeks ago. - These outbreaks typically occur on the nose or between the lip and nose. - The patient has previously been prescr ibed Valtrex for this condition and has also used [id number] Abreva, which is no longer effective. - She has no other rashes or lesions. - She denies cold symptoms, fever, or ch ills. Physical Exam General: Cooperative, healthy appearing, comfortable, no acute distress and well developed Orientation: Patient oriented x3 Respiratory: Normal respiratory effort and able to speak in complete sentences. Clear to auscultation bilaterally Cardiovascular: Regular rate and rhythm. Normal S1 and S2 Skin: Small raised erythematous crusted cluster noted on the right nare. Dry, no discharge noted. Patient was informed and verbally consented to the use of an ambient scribe for clinic note documentation during this visit. COUNT INCLUDES THE [facility] Medical History Osteoarthritis of knees, bilateral Hyperparathyroidism Vaginal discharge Physical exam Open wound of thumb Lupus Mild recurrent major depression Morbid obesity with BMI of 40.0-44.9, adult Vitamin D deficiency BMI 38.0-38.9,adult Intestinal malabsorption following gastrectomy Preeclampsia Obesity (BMI 30-39.9) Knee pain Hypertension Depression Proteinuria Autoimmune thyroiditis SLE (systemic lupus erythematosus related syndrome) Surgical History History of foot surgery History of open reduction and internal fixation (ORIF) procedure History of sleeve gastrectomy Status post biopsy of kidney Family History Father Asthma Mother No problems noted. Brother No problems noted. Brother No problems noted. Sister No problems noted. Social History Housing: Apartment Alcohol intake: never Patient Tobacco Use Status: Never used Tobacco e-Cigarette/Vaping Use: Never Used Second Hand Smoke Exposure: No service: No Current occupational status: unemployed Current occupational exposures/hazards: No Cognitive needs: No Hearing needs: No Vision needs: No Female Reproductive History Menstrual Age of Menarche: 11 Review of Systems Const All systems reviewed & are unremarkable except as noted in HPI and below Physical Exam Vital Signs: Last Vital Signs Temp 98.3 F 06/04/25 12:44 Pulse 73 06/04/25 12:44 BP 112/68 06/04/25 12:44 Pulse Ox 96 06/04/25 12:44 Oxygen Delivery Method Room Air 06/04/25 12:44 BMI result Body Mass Index 36.4 Assessment & Plan Assessment & Plan (1) Herpes: Code(s): B00.9 - Herpesviral infection, unspecified Plan Most likely Herpes Labialis plan - The patient presents with a recurrent vesicular lesion on the nose, consistent with a herpes labialis outbreak. - A prescription for Valtrex 1 gram every 12 hours for 5 days was electronically sent. - The patient was advised to start the medication today. Medications: Refilled valacyclovir 1,000 mg PO q12h 10 tabs 0RF Coding Level of Care Code Est Pt Level 3 (84463) Diagnoses Herpes B00.9
--- OUTSIDE RECORDS SUMMARY | 2025-06-04 15:43 | XMS_ITS | Clinical Summary ---
Author Organization [facility] Address [address] [facility] [address] [place] [address] Phone Care Team Providers Care Marine Gear Keeper Name Role Phone Delores Mancia MD Primary Care Provid er Delores Mancia MD Unavailable [phone] Allergies Active Allergy Reactions Criticality Noted Date [...] Td,Tdap Booster 05/23/2026 05/23/2016 , 10/28/2009, 09/07/1998 IPV VACCINES Completed 07/10/1985, 07/1984, 04/09/1984, Additional history exists HIB VACCINES Aged Out 10/09/2007 No longer [...] topic Medical Devices Not on file [facility] [place] [facility] [place] [facility] Care Teams Marine Gear Keeper Relationship Specialty Start Date End Date Delores Mancia MD [address] [place] [address] PCP - General Internal Medicine 07/07/23 Delores Mancia MD [address] [place] [address] 07/07/23 Additional Source Comments The information contained in this document represents components of the legal health record. It is not the complete legal health record.[facility]
--- OUTSIDE RECORDS SUMMARY | 2025-06-04 15:43 | XMS_ITS | Clinical Summary ---
Author Organization [facility] Address [address] [place] [address] Phone Care Team Providers Care Box Brander Name Role Phone Delores Silva MD Primary Care Provider [phone] Allergies Active Allergy Reactions Criticality Noted Date [...] 8 (eight) hours. 180 tablet 07/16/2024 Active wheat dextrin 3 gram/3.5 gram powder in packet Take 1 packet by mouth 1 (one) time each day. 30 packet 07/16/2024 Active oxyCODONE (ROXICODONE) 5 mg immediate release tabletIndicatio ns:H/O gastric sleeve Take 1 tablet (5 mg total) by mouth every 4 (four) hours if needed for moderate pain. Max Daily Amount: 30 mg 15 tablet 07/27/2024 Active simethicone (MYLICON) 80 mg chewable tablet Chew 1 tablet (80 mg total) every 6 (six) hours if needed for flatulence. 120 tablet 04/28/2025 Active multivitamin tablet Take 1 tablet by mouth 1 (one) time each day. 30 each 11 04/28/2025 04/28/20 Active cyanocobalamin, vitamin B-12, 1,000 mcg tablet, sublingual Place 1 tablet under the tongue 1 (one) time each day. 90 tablet 05/05/2025 08/03/19 26 Active B complex tablet Take 1 tablet by mouth 1 (one) time each day. 30 tablet 11 05/05/2025 05/05/20 Active Active Problems Problem Noted Date Diagnosed Date Bariatric surgery status 08/08/2024 Chronic renal insufficiency 07/26/2024 HTN (hypertension) 07/25/2024 Morbid (severe) obesity due to excess calories (CMS/[facility] V24, CMS/[facility] V28) 06/18/2024 Class 2 severe obesity due t o excess calories with serious comorbidity and body mass index (BMI) of 35.0 to 35.9 in adult 04/12/2024 Absolute anemia 03/22/2024 Encounters Date Type Department Care Team Description 04/28/2025 10:15 AM EDT Office Visit Bariatric Surgery - [address] [address] Ana Lilia Bruce, PA Class 2 severe obesity due to excess calories with serious comorbidity and body mass index (BMI) of 35.0 to 35.9 in adult (Primary Dx); Bariatric surgery status from Last 3 Months Immunizations Immunization Administration Dates Next Due Pfizer SARS-CoV-2 COVID-19, mRNA, LNP-S, preservative free 10/04/2022 Surgical History Surgery Date Site/Laterality Comments BARIATRIC SURGERY 2019 PROCEDURE:BARIATRIC SURGERY ORIF HIP FRACTURE Right orif r hip from dislocation Medical History Medical History Date Comments Anemia DX:Anemia Hypertension DX:Hypertension Depression DX:Depression Hypothyroidism not taking meds Anxiety Arthritis Joint pain Lupus (systemic lupus erythematosus) (CMS/HCC V2 4, CMS/[facility] V28) Social History Tobacco Use [...] Sign Reading Time Taken Comments Blood Pressure 150/75 04/28/2025 10:14 AM EDT Pulse 61 04/28/2025 10:14 AM EDT Temperature 36.6 C (97.8 F) 12/31/2024 9:09 AM EDT Respiratory Rate 18 09/02/2024 1:34 PM EST Oxygen Saturation 100% 09/09/2024 10:02 AM EST Inhaled Oxygen Concentration - - Weight 95.8 kg (211 lb 3.2 oz) 04/28/2025 10:14 AM EDT Height 165.1 cm (5' 5 ) 04/28/2025 10:14 AM EDT Body Mass Index 35.15 04/28/2025 10:14 AM EDT Plan of Treatment Upcoming Encounters Date Type Department Care Team (Late st Contact Info) Description 06/19/2025 8:00 AM EST Nutrition Bariatric Surgery - [address] [address] Ruth Moore, RASHAWN [address] [place] [address] 09/30/2025 9:15 AM EDT Office Visit Bariatric Surgery [address] [address] Ana Lilia Bruce PA [address] [place] [phone] Health Maintenance Due Date Last Done Comments [...] history exists Hypertension/CHF/CAD Annual BMP Blood Test 04/28/2026 04/28/2025, 09/06/2024, 07/28/2024, Additional history exists Cholesterol Screening (Lipid Panel) [...] this topic Medical Devices Implanted Type Area Senior Php Developer Device Identifier Shelf Expiration Date Model / Serial / Lot Bone Pin Right: Hip Procedures Procedure Name Priority Date/Time Associated Diagnosis Comments ZINC Routine 04/28/2025 10:37 AM EDT Class 2 severe obesity due to excess calories with serious comorbidity and body mass index (BMI) of 35.0 to 35.9 in adult Bariatric surgery status COPPER, SERUM Routine 04/28/2025 10:37 AM EDT Class 2 severe obesity due to excess calories with serious comorbidity and body mass index (BMI) of 35.0 to 35.9 in adult Bariatric surgery status VITAMIN A Routine 04/28/2025 10:37 AM EDT Class 2 severe obesity due to excess calories with serious comorbidity and body mass index (BMI) of 35.0 to 35.9 in adult Bariatric surgery status SELENIUM SERUM Routine 04/28/2025 10:37 AM EDT Class 2 severe obesity due to excess calories with serious comorbidity and body mass index (BMI) of 35.0 to 35.9 in adult Bariatric surgery status VITAMIN B12 Routine 04/28/2025 10:37 AM EDT Class 2 severe obesity due to excess calories with serious comorbidity and body mass index (BMI) of 35.0 to 35.9 in adult Bariatric surgery status VITAMIN B6 Routine 04/28/2025 10:37 AM EDT Class 2 severe obesity due to excess calories with serious comorbidity and body mass index (BMI) of 35.0 to 35.9 in adult Bariatric surgery status VITAMIN D 25 HYDROXY Routine 04/28/2025 10:37 AM EDT Class 2 severe obesity due to excess calories with serious comorbidity and body mass index (BMI) of 35.0 to 35.9 in adult Bariatric surgery status IRON AND TIBC Routine 04/28/2025 10:37 AM EDT Class 2 severe obesity due to excess calories with serious comorbidity and body mass index (BMI) of 35.0 to 35.9 in adult Bariatric surgery status FOLATE Routine 04/28/2025 10:37 AM EDT Class 2 severe obesity due to excess calories with serious comorbidity and body mass index (BMI) of 35.0 to 35.9 in adult Bariatric surgery status COMPREHENSIVE METABOLIC PANEL Routine 04/28/2025 10:37 AM EDT Class 2 severe obesity due to excess calories with serious comorbidity and body mass index (BMI) of 35.0 to 35.9 in adult Bariatric surgery status LIPID PANEL Routine 09/11/2023 from Last 3 Months or Most Recently Relevant to Health Maintenance Results * (ABNORMAL) Iron and TIBC (04/28/2025 10:37 AM EDT) Iron 40 40 - 150 mcg/dL LAB CHEMISTRY METHOD 04/28/2025 5:38 PM EDT [facility] TIBC 332 250 - 450 mcg/dL LAB CHEMISTRY METHOD 04/28/2025 5:38 PM EDT [facility] Iron Saturation 12(L) 15 - 50 % LAB CHEMISTRY METHOD 04/28/2025 5:38 PM EDT [facility] Blood Venous blood specimen / Unknown Venipuncture / Unknown 04/28/2025 10:37 AM EDT 04/28/2025 10:37 AM EDT Ana Lilia [facility] LAB BLOOD ORDERABLES Final R esult [facility] [address] [place] [address], * Copper, serum (04/28/2025 10:37 AM EDT) Copper 1144 810 - 1990 ug/L 05/02/2025 8:22 AM EDT [facility] Comment: Copper values may be elevated to twice the normal levels in . Elevated results may be due to sample collected in a non-certified trace element-free tube. This test was developed and the performance characteristics determined by [facility]. It has not been cleared or approved by the FDA. The laboratory is regulated under CLIA as qualified to perform high-complexity testing. This test is used for patient testing purposes. It should not be regarded as investigational or for research. Test performed at [facility], [address] , [place] [address] Ann-Marie Kerr MD, PhD - Publishing Director Blood Venous blood specimen / Unknown Venipuncture / Unknown 04/28/2025 10:37 AM EDT 04/28/2025 10:37 AM EDT Ana Lilia [facility] LAB BLOOD ORDERABLES Final R esult Performing Organization Address City/[facility] Co de Phone Number [facility] [address] [place] [address] * Zinc (04/28/2025 10:37 AM EDT) Pathologist [facility] Zinc 77 60 - 130 ug/dL 05/01/2025 11:37 AM EDT [facility] Comment: Elevated results may be due to sample collected in a non-certified trace element-free tube. This test was developed and the performance characteristics determined by [facility]. It has not been cleared or approved by the FDA. The laboratory is regulated under CLIA as qualified to perform high-complexity testing. This test is used for patient testing purposes. It should not be regarded as investigational or for research. Test performed at [facility], [address] , [place] [address] Ann-Marie Kerr MD, PhD - Publishing Director Blood Venous blood specimen / Unknown Venipuncture / Unknown 04/28/2025 10:37 AM EDT 04/28/2025 10:37 AM EDT Ana Lilia [facility]ON LAB BLOOD ORDERABLES Final R esult Performing Organization Address City/[facility]/ZIP Co de Phone Number [facility] [address] [place] [address] * Vitamin A (04/28/2025 10:37 AM EDT) Vitamin A 43 38 - 106 ug/dL 05/02/2025 5:19 AM EDT [facility] Comment: This test was developed and the performance characteristics determined by [facility]. It has not been cleared or approved by the FDA. The laboratory is regulated under CLIA as qualified to perform high-complexity testing. This test is used for patient testing purposes. It should not be regarded as investigational or for research. Test performed at [facility], [address] , [place] [address] Ann-Marie Kerr MD, PhD - Publishing Director Blood Venous blood specimen / Unknown Venipuncture / Unknown 04/28/2025 10:37 AM EDT 04/28/2025 10:37 AM EDT Ana Lilia [facility] LAB BLOOD ORDERABLES Final R esult [facility] [address] [place] [address] * Selenium serum (04/28/2025 10:37 AM EDT) Pathologist [facility] Selenium 128 63 - 160 mcg/L 05/02/2025 8:46 PM EDT [facility] Comment: This test was developed and its analytical performance characteristics have been determined by [facility] [place], [place]. It has not been cleared or approved by the U.S. Food and Drug Administration. This assay has been validated pursuant to the CLIA regulations and is used for clinical purposes. Test Performed by [email or web address] [employer] [facility], [address] [place] [address] Edgard Dejesus M.D., Ph.D., Director of Laboratories , CLIA [id number] Blood Venous blood specimen / Unknown Venipuncture / Unknown 04/28/2025 10:37 AM EDT 04/28/2025 10:37 AM EDT Ana Lilia [facility] LAB BLOOD ORDERABLES Final R esult Performing Organization Address City/[facility]/ZIP Co de Phone Number [facility] [address] [place] [address] * Vitamin D 25 hydroxy (04/28/2025 10:37 AM EDT) Pathologist [facility] Vit D, 25-Hydroxy 35.2 30.0 - 80.0 ng/mL LAB CHEMISTRY METHOD 04/28/2025 2:49 PM EDT [facility] Blood Venous blood specimen / Unknown Venipuncture / Unknown 04/28/2025 10:37 AM EDT 04/28/2025 10:37 AM EDT Ana Lilia [facility] LAB BLOOD ORDERABLES [facility] Performing Organization Address [facility] Co de Phone Number [facility] [address] [place] [address], * (ABNORMAL) Vitamin B6 (04/28/2025 10:37 AM EDT) [facility] Vitamin B6 (Pyridoxine) Level 4(L) 5 - 50 ug/L 05/02/2025 7:42 AM EDT [facility] Comment: This test was developed and the performance characteristics determined by [facility] [employer]. It has not been cleared or approved by the FDA. The laboratory is regulated under CLIA as qualified to perform high-complexity testing. This test is used for patient testing purposes. It should not be regarded as investigational or for research. Test performed at [facility], [address] , [place] [address] Ann-Marie Kerr MD, PhD - Publishing Director Blood Venous blood specimen / Unknown Venipuncture / Unknown 04/28/2025 10:37 AM EDT 04/28/2025 10:37 AM EDT Ana Lilia [facility] LAB BLOOD ORDERABLES Final R esult Performing Organization Address City/[facility]/ZIP Co de Phone Number [facility] [address] [place] [address] * Folate (04/28/2025 10:37 AM EDT) [facility] Folate 10.2 2.8 - 17.0 ng/ml LAB CHEMISTRY METHOD 04/28/2025 5:38 PM EDT [facility] Blood Venous blood specimen / Unknown Venipuncture / Unknown 04/28/2025 10:37 AM EDT 04/28/2025 10:37 AM EDT Ana Lilia [facility]ON LAB BLOOD ORDERABLES Final R esult Performing Organization Address City/[facility]/ZIP Co de Phone Number [facility] [address] [place] [address], [place] [phone] * (ABNORMAL) Vitamin B12 (04/28/2025 10:37 AM EDT) [facility] Vitamin B-12 191(L) 250 - 900 pcg/mL LAB CHEMISTRY METHOD 04/28/2025 5:43 PM EDT [facility] Blood Venous blood specimen / Unknown Venipuncture / Unknown 04/28/2025 10:37 AM EDT 04/28/2025 10:37 AM EDT Ana Lilia [facility] LAB BLOOD ORDERABLES Final R esult Performing Organization Address City/[facility]/ZIP Co de Phone Number [facility] [address] [place] [address], [place] [phone] * (ABNORMAL) Comprehensive metabolic panel (04/28/2025 10:37 AM EDT) [facility] Sodium 140 133 - 145 mmol/L LAB CHEMISTRY METHOD 04/28/2025 5:38 PM EDT [facility] Potassium 4.6 3.5 - 5.5 mmol/L LAB CHEMISTRY METHOD 04/28/2025 5:38 PM EDT [facility] Chloride 111(H) 96 - 110 mmol/L LAB CHEMISTRY METHOD 04/28/2025 5:38 PM [facility] CO2 24 21 - 32 mmol/L LAB CHEMISTRY METHOD 04/28/2025 5:38 PM [facility] Anion Gap 5 3 - 11 LAB CHEMISTRY METHOD 04/28/2025 5:38 PM [facility] Glucose 76 70 - 100 mg/dL LAB CHEMISTRY METHOD 04/28/2025 5:38 PM [facility] BUN 16 5 - 25 mg/dL LAB CHEMISTRY METHOD 04/28/2025 5:38 PM [facility] Creatinine 1.29(H) 0.50 - 1.10 mg/dL LAB CHEMISTRY METHOD 04/28/2025 5:38 PM [facility] eGFR 54(L) >=60 mL/min/1. 73m2 LAB CHEMISTRY METHOD 04/28/2025 5:38 PM [facility] Comment:Calculation based on the Chronic Kidney Disease Epidemiology Collaboration (CKD-EPI) equation refit without adjustment for race. BUN/Creatinine Ratio 12.4 LAB CHEMISTRY METHOD 04/28/2025 5:38 PM [facility] Calcium 8.7 8.5 - 10.5 mg/dL LAB CHEMISTRY METHOD 04/28/2025 5:38 PM [facility] AST (SGOT) 21 10 - 42 unit/L LAB CHEMISTRY METHOD 04/28/2025 5:38 PM [facility] ALT (SGPT) 26 10 - 60 unit/L LAB CHEMISTRY METHOD 04/28/2025 5:38 PM [facility] Alkaline Phosphatase 171(H) 42 - 121 unit/L LAB CHEMISTRY METHOD 04/28/2025 5:38 PM [facility] Total Protein 6.5 6.0 - 8.0 g/dL LAB CHEMISTRY METHOD 04/28/2025 5:38 PM [facility] Albumin 3.2 3.2 - 5.0 g/dL LAB CHEMISTRY METHOD 04/28/2025 5:38 PM EDT [facility] Total Bilirubin 0.3 0.0 - 1.4 mg/dL LAB CHEMISTRY METHOD 04/28/2025 5:38 PM EDT [facility] Blood Venous blood specimen / Unknown Venipuncture / Unknown 04/28/2025 10:37 AM EDT 04/28/2025 10:37 AM EDT Ana Lilia [facility] LAB BLOOD ORDERABLES Final R esult [facility] [address] [place] [address], [place] [phone] * Lipid panel (09/11/2023) LDL/HDL Ratio 3 0 - 4 Triglycerides 129 0 - 150 mg/dL Cholesterol 159 0 - 200 mg/dL HDL 47 >=40 mg/dL LDL Cholesterol 87 0 - 100 mg/dL Blood Venous blood specimen / Unknown Historical Provider LAB BLOOD ORDERABLES Sonam l Result from Last 3 Months or Most Recently Relevant to Health Maintenance Insurance [facility] Care Teams Box Brander Relationship Specialty Start Date End Date Delores Silva MD [address] [place] [address] , [facility] [address] [facility] D/B/A: [facility] DI[place] Roberts PCP - General Internal Medicine 02/09/22
--- OUTSIDE RECORDS SUMMARY | 2025-06-04 15:43 | XMS_ITS | Clinical Summary ---
Author Organization [facility] Address [address] [address] Phone Care Team Providers Care Channeling Machine Operator Name Role Phone Delores Mancia MD Primary Care Provider [phone] Allergies Active Allergy Reactions Criticality Noted Date [...] Date Type Department Care Team Description 04/28/2025 1:15 PM EDT [facility] Visit [facility] [address] [address] Darci Gamble MD Stage 3a chronic kidney disease (HCC) (Primary Dx); Hypertensive disorder 03/13/2025 Refill [facility] [address] [address] Darci Gamble MD from Last 3 Months [...] Sign Reading Time Taken Comments Blood Pressure 112/76 04/28/2025 1:35 PM EDT Pulse 68 04/28/2025 1:35 PM EDT Temperature - - Respiratory Rate - - Oxygen Saturation 97% 04/28/2025 1:35 PM EDT Inhaled Oxygen Concentration - - Weight 95.7 kg (211 lb) 04/28/2025 1:35 PM EDT Height 162.6 cm (5' 4 ) 06/06/2022 12:55 PM EST Body Mass Index 36.22 06/06/2022 12:55 PM EST Plan of Treatment Upcoming Encounters Date Type Department Care Team (Late st Contact Info) Description 10/13/2025 2:00 PM EDT Office Visit [facility] [address] [place] [address] Darci Gamble MD [address] [facility] [address] [place] [address] Health Maintenance Due Date Last Done Comments Pneumococcal Vaccine: Peds ( 0 to 5 Years) and At-Risk Patients (6 to 49 Years) (1 of 2 - PCV) 11/24/2002 Influenza Vaccine (#1) 2025 2, 05/12/2021, 05/05/2020, Additional history exists Hepatitis B Vaccine Completed 09/07/1998, 05/06/1998, 02/17/1998 Procedures Procedure Name Priority Date/Time Associated Diagnosis Comments PROTEIN / CREATININE RATIO, URINE Routine 04/25/2025 9:18 AM EDT ALBUMIN, URINE, RANDOM Routine 04/25/2025 9:18 AM EDT URINALYSIS WITH MICROSCOPIC Routine 04/25/2025 9:18 AM EDT CALCIUM Routine 04/25/2025 8:43 AM EDT CREATININE, BLOOD Routine 04/25/2025 8:4 3 AM EDT BUN Routine 04/25/2025 8:43 AM EDT ELECTROLYTE PANEL Routine 04/25/2025 8:4 3 AM EDT from Last 3 Months Results * (ABNORMAL) Protein, Total, Random Urine w/Creatinine (Protein/Creat Ratio) (04/25/2025 9:18 AM EDT) Protein Urine Random 29(H) <12 mg/dL See order comments Protein/Creati nine Ratio, Urine 0.46(H) <0.2 See order comments Comment: The spot urine protein:creatinine ratio may increase to 0.3 during normal . 04/25/2025 9:18 AM EDT 04/25/2025 9:18 AM EDT us Darci Gamble MD LAB URINE ORDERABLES Final Re sult [place] See order comments [place] [address] * (ABNORMAL) Albumin, urine, random (04/25/2025 9:18 AM EDT) Creatinine, Urine 62.43 mg/dL Se e order comments Urine Microalbumin 190.0 mg/L See order comments Microalbumin/Crea tinine Ratio 304.3(H) <30 ug/mg cr See order comments Comment: Albumin/Creatinine Ratio Reference Ranges: Normal: < 30 ug/mg creatinine Microalbuminuria: 30 - 300 ug/mg creatinine Clinical Albuminuria: > 300 ug/mg creatinine 04/25/2025 9:18 AM EDT 04/25/2025 9:18 AM EDT us Darci Gamble MD LAB URINE ORDERABLES Final Re sult Performing Organization Address City/[facility]/ZIP Co de Phone Number See order comments [place] [address] * (ABNORMAL) Urinalysis with microscopic (04/25/2025 9:18 AM EDT) Color Urine Yellow See orde r comments Appearance Urine Clear See order comments pH Urine 6.0 5.0 - 9.0 See order comments Glucose Urine Negative Negative mg/dL See order comments Blood, Urine Trace(A) Negative See ord er comments Specific [place] Urine 1.010 1.005 - 1.025 See order comments Protein Urine 30 (1+)(A) Neg-Trace mg/dL See order comments Ketones, Urine Negative Negative mg/dL See order comments Nitrite, Urine Negative Negative See o rder comments Leukocyte Esterase Urine Moderate (2+)(A) Negative See order comments RBC, Urine 0-2 0 - 2 /HPF See orde r comments WBC >50(A) 0 - 5 /HPF See order comments Squamous Epithelial, Urine 6-10 0 - 2 /HPF See order comments Bacteria, Urine 2+ None Seen See order comments Hyaline Casts, Urine 0-2 0 - 2 /LPF See order comments 04/25/2025 9:18 AM EDT 04/25/2025 9:18 AM EDT us Darci Gamble MD LAB URINE ORDERABLES Final Re sult See order comments [place] [address] * Creatinine (04/25/2025 8:43 AM EDT) Creatinine Serum 1.13 0.5 - 1.4 mg/dL See order comments eGFR (Calc) 53 See orde r comments Comment: Chronic Kidney Disease: Estimated GFR < 60 mL/min/1.73m2 Severe Kidney Disease: Estimated GFR < 15 mL/min/1.73m2 04/25/2025 8:43 AM EDT 04/25/2025 8:43 AM EDT us Darci Gamble MD LAB BLOOD ORDERABLES Final Re sult Performing Organization Address [facility] Phone Number [place] See order comments [place] [address] * (ABNORMAL) BUN (04/25/2025 8:43 AM EDT) BUN 18(H) 9 - 16 mg/dL See order comments 04/25/2025 8:43 AM EDT 04/25/2025 8:43 AM EDT us Darci Gamble MD LAB BLOOD ORDERABLES Final Re sult Performing Organization Address [facility] de Phone Number [place] See order comments [place] [address] * Calcium (04/25/2025 8:43 AM EDT) Calcium 8.6 8.4 - 10.2 mg/dL See order comments 04/25/2025 8:43 AM EDT 04/25/2025 8:43 AM EDT us Darci Gamble MD LAB BLOOD ORDERABLES Final Re sult Performing Organization Address [facility] Phone Number [place] See order comments [place] [address] * (ABNORMAL) Electrolyte panel (04/25/2025 8:43 AM EDT) Sodium 142 135 - 145 mmol/L See order comments Potassium 4.2 3.3 - 5.1 mmol/L See order comments Chloride 112(H) 96 - 108 mmol/L See order comments Bicarbonate (CO2) 25 22 - 29 mmol/L See order comments Anion Gap 9(L) 12 - 20 See order comments 04/25/2025 8:43 AM EDT 04/25/2025 8:43 AM EDT us Darci Gamble MD LAB BLOOD ORDERABLES Final Re sult [place] See order comments [place] [address] from Last 3 Months Insurance [facility] Medicaid [facility] Medicaid Care Teams Channeling Machine Operator Relationship Specialty Start Date End Date Delores Mancia MD [address] [place] [phone] (Work) PCP - General 07/20/20
--- OUTSIDE RECORDS SUMMARY | 2025-06-04 15:43 | XMS_ITS | Clinical Summary ---
Author Organization [employer] Address [address] [place] [address] [address] [place] [address] Care Team Providers Care Senior Mobile Developer Name Role Phone Unavailable Primary Care [...] patient's age to complete this topic [place] [address] [address] [place] [id number] ACO
--- OUTSIDE RECORDS SUMMARY | 2025-06-04 15:43 | XMS_ITS | Clinical Summary ---
Author Organization [facility] Address [address] [place] [address] Care Team Providers Care Cooperative Extension Agent Name Role Phone Delores Mancia MD Primary [...] age to complete this topic Care Teams Cooperative Extension Agent Relationship Specialty Start Date End Date Delores Mancia MD [address] [facility] , [address] [facility] D[facility] [place] [address] PCP - General Internal Medicine 12/13/23
== END 2025-06-04 13:12 | disposition home or self-care (01) ==
PROVIDERS: PCP Internal Medicine; Visit Provider Physician Assistant Medical
DX: B00.9 Herpesviral infection, unspecified (principal)

== ENCOUNTER → 2025-06-04 12:41 | Outpatient (BNVA) | payer OTHER, SELFPAY | PROVIDERS: PCP Internal Medicine; Visit Provider Physician Assistant Medical | DX: I10 Essential (primary) hypertension (principal); B00.9 Herpesviral infection, unspecified | CPT/HCPCS: 99212 ==

== ENCOUNTER 2025-06-25 08:35 | Outpatient (AMB) | payer OTHER, SELFPAY ==
--- OUTSIDE RECORDS SUMMARY | 2024-04-15 13:04 | XMS_ITS | Encounter Summary ---
Author Organization [facility] Address [address] [place] [address] Care Team Providers Care Data Mining Analyst Name Role Phone Delores Silva MD Primary Care Provider [phone] Encounter Details Date Type Department Care Team ([facility] Contact Info) Description 04/15/2024 2:04 PM EDT Hospital Encounter TH HISTORIC ENCOUNTERS EASTERN CONVERSION ONLY Social History Tobacco Use Types Packs/Day Years Used Date Smoking Tobacco: Never Smokeless Tobacco: Never Alcohol Use Standard Drinks/Week Comments Not Currently 0 (1 standard drink = 0.6 oz pur e alcohol) Interpersonal Safety Answer Date Record ed Physical Abuse Unrecognized value 07/26/2024 Verbal Abuse Unrecognized value 07/26/2024 Comments No Sex and Gender Information Value Date Recorded Sex Assigned at Female 07/15/2024 11:30 AM EST Legal Sex Female 5:02 AM EST Gender Identity Female 07/15/2024 11:30 AM EST Sexual Orientation Straight 07/15/2024 11 :30 AM EST documented as of this encounter Last Filed Vital Signs Vital Sign Reading Time Taken Comments Blood Pressure - - Pulse - - Temperature - - Respiratory Rate - - Oxygen Saturation - - Inhaled Oxygen Concentration - - Weight 120 kg (265 lb) 02/12/2024 2:01 PM EDT Height 162.6 cm (5' 4 ) 01/24/2024 8:41 AM EDT Body Mass Index 45.49 01/24/2024 8:41 AM EDT documented in this encounter Functional Status * Calculated C-SSRS Risk Score (Lifetime/Recent) Answer Date of Assessment Author No Risk Indicated 07/26/2024 10:02 PM EST Mary Conrad RN * [place] Suicide Severity Rating Scale (Screener/Recent Self-Report) Question Answer Date of Assessment Author 1. Wish to be (Past 1 Month) No 025 10:02 PM Mary Steele RN 2. Non-Specific Active Suici sharon Thoughts (Past 1 Month) No 07/26/2024 10:02 PM Marshall Steele RN 6. Suicidal Behavior (Lifetime) No 10:02 PM Mary Steele RN documented as of this encounter Progress Notes * Historical, Notes Results - 04/15/2024 2:00 PM EDT Diane arrives ambulatory with steady gait for for her monthly B12 injection. Well appearing - denies any current complaints/concerns - stable assessment completed. Resting comfortably in recliner with call hanson in reach. 1442 - B12 injection given to right arm subcutaneously - well tolerated. Patient has next appt in place. Stable upon discharge. documented in this encounter Plan of Treatment Upcoming Encounters Date Type Department Care Team (Late st Contact Info) Description 09/18/2025 11:30 AM EDT Nutrition Bariatric Surgery [address] [address] Ruth Moore, RASHAWN [address] [place] [phone] 09/30/2025 9:15 AM EDT Office Visit Bariatric [address] [phone] Ana Lilia Bruce PA [address] [place] [phone] documented as of this encounter Visit Diagnoses Not on filedocumented in this encounter Care Teams Data Mining Analyst Relationship Specialty Start Date End Date Delores Silva MD [address] [place] [address] , [address] Physician Associ D/B/A: [facility] [place] PCP - General Internal Medicine 02/09/22 documented as of this encounter
[2025-06-25 08:49] VITALS: BP 124/80; PULSE 62; O2SAT 99; BMI 36.5
--- NOTE | 2025-06-25 08:49 | MHC.OFFVIS ---
Vital Signs 06/25/25 08:49 Height 5 ft 4 in Weight 212 lb 11.937 oz BMI 36.5 BP 124/80 Blood Pressure Location Rt brachial Position Sitting Pulse 62 Pulse Source Pulse Oximeter Pulse Oximetry (%) 99 Oxygen Delivery Method Room Air Intake Visit Reasons: 3 months Intake Note: Patient present today for RA. Accompanied by: self' Allergies metformin (METFORMIN) Allergy (Intermediate, Verified 06/25/25 08:50) INFLAMMED GUMS, red gums, redness of gums doxycycline Adverse Reaction (Intermediate, Verified 06/25/25 08:50) Itching HPI HPI 3 months: Details: Last leflunomide was few months ago. Consistent with Plaquenil 400mg qhs without side effects. She has increase pain whole body after playing with kids or exerting herself. Tylenol is ineffective. She is unable to take NSAIDs due to history of bariatric surgery. No fevers, oral ulcers, rash, dyspnea, pleurisy, hematuria. +frothy urine. +nasal ulcers PFSH Medical History Osteoarthritis of knees, bilateral Hyperparathyroidism Vaginal discharge Physical exam Open wound of thumb Lupus Mild recurrent major depression Morbid obesity with BMI of 40.0-44.9, adult Vitamin D deficiency BMI 38.0-38.9,adult Intestinal malabsorption following gastrectomy Preeclampsia Obesity (BMI 30-39.9) Knee pain Hypertension Depression Proteinuria Autoimmune thyroiditis SLE (systemic lupus erythematosus related syndrome) Surgical History History of foot surgery History of open reduction and internal fixation (ORIF) procedure History of sleeve gastrectomy Status post biopsy of kidney Family History Father Asthma Mother No problems noted. Brother No problems noted. Brother No problems noted. Sister No problems noted. Social History Housing: Apartment Alcohol intake: never Patient Tobacco Use Status: Never used Tobacco e-Cigarette/Vaping Use: Never Used Second Hand Smoke Exposure: No service: No Current occupational status: unemployed Current occupational exposures/hazards: No Cognitive needs: No Hearing needs: No Vision needs: No Female Reproductive History Menstrual Age of Menarche: 11 Physical Exam Vital Signs: Last Vital Signs Pulse 62 06/25/25 08:49 BP 124/80 06/25/25 08:49 Pulse Ox 99 06/25/25 08:49 Oxygen Delivery Method Room Air 06/25/25 08:49 BMI result Body Mass Index 36.5 Const Other: General: Comfortable CVS: RRR Respiratory: clear to auscultation bilaterally. Good respiratory effort Skin: No lesions seen MSK:Tender bilateral MCPs, PIPs, wrists, elbows and shoulders. No synovitis. Mild Valgus deformity of bilateral knees. Normal range of motion of upper extremities and lower extremities. Assessment & Plan Assessment & Plan (1) SLE (systemic lupus erythematosus related syndrome): Comment: Inflammatory arthritis is not controlled. She is tolerating Plaquenil without side effects. She has been without leflunomide for a few months. We discussed combination DMARD treatment would be beneficial for patient in providing further improvement in her joint pain from inflammatory arthritis. She also has superimposed uncontrolled pain from fibromyalgia. Rheumatology history: Positive KEREN 1:160, low C3, indeterminate double-stranded DNA. 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 HCQ 2020- changed to Plaquenil due to side effect of explosive watery diarrhea on hydroxychloroquine 400 mg q.d. , Leflunomide 2023 - Code(s): M32.9 - Systemic lupus erythematosus, unspecified Category: Medical Plan: Continue Plaquenil 400 mg daily. Eye exam OCT and VF ok 09/19/2023 per note reviewed from [facility]. [facility] 08/2024 VF no toxicity from hydroxychloroquine. 12/2024 OCT ok. Eye exam for HCQ due yearly. Restart leflunomide 20mg daily Avoid oral NSAIDs in setting of gastric bypass surgery and CKD Return to clinic in 3 months (2) Fibromyalgia: Comment: Uncontrolled. Code(s): M79.7 - Fibromyalgia Category: Medical Plan: Information given to patient. She is seeing a psychiatrist for management of depression. I asked her to discuss neuropsychiatric medication such as duloxetine and Savella with psychiatry/PCP with up titration as she tolerates it to control pain from fibromyalgia.. Combination treatment can be beneficial. She currently uses cyclobenzaprine 5 mg q.h.s. for restlessness and insomnia. Advised her against use of muscle relaxers for these symptoms and to address these symptoms with her PCP. She will use cyclobenzaprine 5 mg q.h.s PRN. for muscle pain. We discussed long-term dependence and side effects of muscle relaxer use. Patient agrees with plan. (3) Proteinuria: Comment: Follows with nephrology. Code(s): R80.9 - Proteinuria, unspecified Category: Medical Qualifiers: Proteinuria type: unspecified Qualified Code(s): R80.9 - Proteinuria, unspecified Plan: Labs for urine studies ordered to assess lupus activity Nephrology follow-up 2025 Plan . Orders: Orders Erythrocyte Sedimentation Rate Today M32.9 - Systemic lupus erythematosus, unspecified Alanine Aminotransferase Today M32.9 - Systemic lupus erythematosus, unspecified Complement C3 Today M32.9 - Systemic lupus erythematosus, unspecified Complement C4 Today M32.9 - Systemic lupus erythematosus, unspecified Creatinine Today M32.9 - Systemic lupus erythematosus, unspecified Complete Blood Count Auto Diff Today M32.9 - Systemic lupus erythematosus, unspecified Protein Creatinine Ratio, Ur Today M32.9 - Systemic lupus erythematosus, unspecified Aspartate Amino Transferase Today M32.9 - Systemic lupus erythematosus, unspecified Anti DNA DS Antibody Today M32.9 - Systemic lupus erythematosus, unspecified UA ClnCatch+Micro w/rflx Cult Today M32.9 - Systemic lupus erythematosus, unspecified C Reactive Protein Today M32.9 - Systemic lupus erythematosus, unspecified Medications: Changed From leflunomide 20 mg PO DAILY 30 tabs 2RF To leflunomide 20 mg PO DAILY 90 tabs 0RF 90 days Refilled Plaquenil (hydroxychloroquine) Dispense brand only. No PA needed 400 mg (2 x 200 mg) PO DAILY 180 tabs 1RF 90 days NS Coding Level of Care Code Est Pt Level 4 (70655) Add On Problem Visit Only Diagnoses SLE (systemic lupus erythematosus related syndrome) M32.9 Fibromyalgia M79.7 Proteinuria, unspecified type R80.9 Proteinuria type: unspecified
--- OUTSIDE RECORDS SUMMARY | 2025-06-25 08:52 | XMS_ITS | Clinical Summary ---
Author Organization [facility] Address [address] [place] [address] Phone Care Team Providers Care Supervisor Asphalt Paving Name Role Phone Delores Silva MD Primary Care Provider [phone] Allergies Active Allergy Reactions Criticality Noted Date [...] due to excess calories 1 08/19/2023 Class 2 severe obesity due t o excess calories with serious comorbidity and body mass index (BMI) of 35.0 to 35.9 in adult 04/12/2024 Absolute anemia 03/22/2024 Encounters Date Type Department Care Team Description 04/28/2025 10:15 AM EDT Office Visit Bariatric Surgery - [address] [address] Ana Lilia Bruce PA Class [...] Arthritis Joint pain Lupus (systemic lupus erythematosus) (CMS/[facility] V2 4, CMS/[facility] V28) Social History Tobacco Use [...] Orientation Straight 07/15/2024 11 :30 AM EST Last Filed Vital Signs Vital Sign Reading [...] 11:30 AM EDT Nutrition Bariatric Surgery - [address] [address] [place] [address] 09/30/2025 9:15 AM EDT Office Visit Bariatric Surgery [address] [address] Ana Lilia Bruce, PA [address] [place] [id number] Health Maintenance Due Date Last Done Comments Breast Cancer Screening 1985 Drug Screen 1983 Non-Opioid Controlled Substance Agreement 1983 Cervical Cancer Screening: Pap Smear 11/24/2004 [...] this topic Medical Devices Implanted Type Area Baller Tender Device Identifier Shelf Expiration Date Model / [...] LAB CHEMISTRY METHOD 04/28/2025 5:38 PM EDT [facility] TIBC 332 250 - 450 mcg/dL LAB CHEMISTRY METHOD 04/28/2025 5:38 PM EDT [facility] Iron Saturation 12(L) 15 - 50 % LAB CHEMISTRY METHOD 04/28/2025 5:38 PM EDT [facility] Blood Venous blood specimen / Unknown Venipuncture / Unknown 04/28/2025 10:37 AM EDT 04/28/2025 10:37 AM EDT us Ana Lilia [facility] LAB BLOOD ORDERABLES Final R esult [facility] [address] [place] [address], * Copper, serum (04/28/2025 10:37 AM EDT) Copper 1144 810 - 1990 ug/L 05/02/2025 8:22 AM EDT [facility] Comment: Copper values may be elevated to twice the normal levels in . Elevated results may be due to sample collected in a non-certified trace element-free tube. This test was developed and the performance characteristics determined by [facility]. It has not been cleared or approved by the FDA. The laboratory is regulated under CLIA as qualified to perform high-complexity testing. This test is used for patient testing purposes. It should not be regarded as investigational or for research. Test performed at [facility], [address] , [place] [address] Ann-Marie Kerr MD, PhD - Cardiovascular Tech Blood Venous blood specimen / Unknown Venipuncture / Unknown 04/28/2025 10:37 AM EDT 04/28/2025 10:37 AM EDT Ana Lilia [facility] LAB BLOOD ORDERABLES Final R esult Performing Organization Address [facility] Co de Phone Number [facility] [address] [place] [address] * Zinc (04/28/2025 10:37 AM EDT) Zinc 77 60 - 130 ug/dL 05/01/2025 11:37 AM EDT [facility] Comment: Elevated results may be due to sample collected in a non-certified trace element-free tube. This test was developed and the performance characteristics determined by [facility]. It has not been cleared or approved by the FDA. The laboratory is regulated under CLIA as qualified to perform high-complexity testing. This test is used for patient testing purposes. It should not be regarded as investigational or for research. Test performed at [facility], [address] , [place] [address] Ann-Marie Kerr MD, PhD - Cardiovascular Tech Blood Venous blood specimen / Unknown Venipuncture / Unknown 04/28/2025 10:37 AM EDT 04/28/2025 10:37 AM EDT Ana Lilia [facility] LAB BLOOD ORDERABLES Final R esult Performing Organization Address City/[facility]/ZIP Co de Phone Number [facility] [address] [place] [address] * Vitamin A (04/28/2025 10:37 AM EDT) Vitamin A 43 38 - 106 ug/dL 05/02/2025 5:19 AM EDT [facility] Comment: This test was developed and the performance characteristics determined by [facility]. It has not been cleared or approved by the FDA. The laboratory is regulated under CLIA as qualified to perform high-complexity testing. This test is used for patient testing purposes. It should not be regarded as investigational or for research. Test performed at [facility], [address] , [place] [address] Ann-Marie Kerr MD, PhD - Cardiovascular Tech Blood Venous blood specimen / Unknown Venipuncture / Unknown 04/28/2025 10:37 AM EDT 04/28/2025 10:37 AM EDT Ana Lilia [facility] LAB BLOOD ORDERABLES Final R esult [facility] [address] [place] [address] * Selenium serum (04/28/2025 10:37 AM EDT) Selenium 128 63 - 160 mcg/L 05/02/2025 8:46 PM EDT [facility] Comment: This test was developed and its analytical performance characteristics have been determined by [facility] [place], [place]. It has not been cleared or approved by the U.S. Food and Drug Administration. This assay has been validated pursuant to the CLIA regulations and is used for clinical purposes. Test Performed by [facility], [facility] [place], [address] [place] [address] Edgard Dejesus M.D., Ph.D., Director of Laboratories , CLIA [id number] Blood Venous blood specimen / Unknown Venipuncture / Unknown 04/28/2025 10:37 AM EDT 04/28/2025 10:37 AM EDT Ana Lilia [facility] LAB BLOOD ORDERABLES Final R esult Performing Organization Address City/[facility]/ZIP Co de Phone Number [facility] [address] [place] [address] * Vitamin D 25 hydroxy (04/28/2025 10:37 AM EDT) Pathologist [facility] Vit D, 25-Hydroxy 35.2 30.0 - 80.0 ng/mL LAB CHEMISTRY METHOD 04/28/2025 2:49 PM EDT [facility] Blood Venous blood specimen / Unknown Venipuncture / Unknown 04/28/2025 10:37 AM EDT 04/28/2025 10:37 AM EDT Ana Lilia [facility] LAB BLOOD ORDERABLES Final R esult Performing Organization Address [facility] Co de Phone Number [facility] [address] [place] [address], [place] [phone] * (ABNORMAL) Vitamin B6 (04/28/2025 10:37 AM EDT) [facility] Vitamin B6 (Pyridoxine) Level 4(L) 5 - 50 ug/L 05/02/2025 7:42 AM EDT [facility] Comment: This test was developed and the performance characteristics determined by [facility]. It has not been cleared or approved by the FDA. The laboratory is regulated under CLIA as qualified to perform high-complexity testing. This test is used for patient testing purposes. It should not be regarded as investigational or for research. Test performed at [facility], [address] , [place] [address] Ann-Marie Kerr MD, PhD - Cardiovascular Tech Blood Venous blood specimen / Unknown Venipuncture / Unknown 04/28/2025 10:37 AM EDT 04/28/2025 10:37 AM EDT Ana Lilia [facility] LAB BLOOD ORDERABLES Final R esult Performing Organization Address City/[facility]/ZIP Co de Phone Number [facility] [address] [place] [address] * Folate (04/28/2025 10:37 AM EDT) [facility] Folate 10.2 2.8 - 17.0 ng/ml LAB CHEMISTRY METHOD 04/28/2025 5:38 PM EDT [facility] Blood Venous blood specimen / Unknown Venipuncture / Unknown 04/28/2025 10:37 AM EDT 04/28/2025 10:37 AM EDT Ana Lilia [facility] LAB BLOOD ORDERABLES Final R esult Performing Organization Address City/[facility]/ZIP Co de Phone Number [facility] [address] [place] [address], [place] [phone] * (ABNORMAL) Vitamin B12 (04/28/2025 10:37 AM EDT) [facility] Vitamin B-12 191(L) 250 - 900 pcg/mL LAB CHEMISTRY METHOD 04/28/2025 5:43 PM EDT [facility] Blood Venous blood specimen / Unknown Venipuncture / Unknown 04/28/2025 10:37 AM EDT 04/28/2025 10:37 AM EDT us Ana Lilia [facility] LAB BLOOD ORDERABLES Final R esult [facility] [address] [place] [address], [place] [phone] * (ABNORMAL) Comprehensive metabolic panel (04/28/2025 10:37 AM EDT) [facility] Sodium 140 133 - 145 mmol/L LAB CHEMISTRY METHOD 04/28/2025 5:38 PM EDT [facility] Potassium 4.6 3.5 - 5.5 mmol/L LAB CHEMISTRY METHOD 04/28/2025 5:38 PM EDT [facility] Chloride 111(H) 96 - 110 mmol/L LAB CHEMISTRY METHOD 04/28/2025 5:38 PM [facility] CO2 24 21 - 32 mmol/L LAB CHEMISTRY METHOD 04/28/2025 5:38 PM [facility] Anion Gap 5 3 - 11 LAB CHEMISTRY METHOD 04/28/2025 5:38 PM [facility] Glucose 76 70 - 100 mg/dL LAB CHEMISTRY METHOD 04/28/2025 5:38 PM [facility] BUN 16 5 - 25 mg/dL LAB CHEMISTRY METHOD 04/28/2025 5:38 PM [facility] Creatinine 1.29(H) 0.50 - 1.10 mg/dL LAB CHEMISTRY METHOD 04/28/2025 5:38 PM [facility] eGFR 54(L) >=60 mL/min/1. 73m2 LAB CHEMISTRY METHOD 04/28/2025 5:38 PM [facility] Comment:Calculation based on the Chronic Kidney Disease Epidemiology Collaboration (CKD-EPI) equation refit without adjustment for race. BUN/Creatinine Ratio 12.4 LAB CHEMISTRY METHOD 04/28/2025 5:38 PM [facility] Calcium 8.7 8.5 - 10.5 mg/dL LAB CHEMISTRY METHOD 04/28/2025 5:38 PM [facility] AST (SGOT) 21 10 - 42 unit/L LAB CHEMISTRY METHOD 04/28/2025 5:38 PM [facility] ALT (SGPT) 26 10 - 60 unit/L LAB CHEMISTRY METHOD 04/28/2025 5:38 PM [facility] Alkaline Phosphatase 171(H) 42 - 121 unit/L LAB CHEMISTRY METHOD 04/28/2025 5:38 PM [facility] Total Protein 6.5 6.0 - 8.0 g/dL LAB CHEMISTRY METHOD 04/28/2025 5:38 PM EDT [facility] Albumin 3.2 3.2 - 5.0 g/dL LAB CHEMISTRY METHOD 04/28/2025 5:38 PM EDT [facility] Total Bilirubin 0.3 0.0 - 1.4 mg/dL LAB CHEMISTRY METHOD 04/28/2025 5:38 PM EDT [facility] Blood Venous blood specimen / Unknown Venipuncture / Unknown 04/28/2025 10:37 AM EDT 04/28/2025 10:37 AM EDT Ana Lilia [facility] LAB BLOOD ORDERABLES Final R esult [facility] [address] [place] [address], [place] [phone] * Lipid panel (09/11/2023) LDL/HDL Ratio 3 0 - 4 Triglycerides 129 0 - 150 mg/dL Cholesterol 159 0 - 200 mg/dL HDL 47 >=40 mg/dL LDL Cholesterol 87 0 - 100 mg/dL Blood Venous blood specimen / Unknown Historical Provider LAB BLOOD ORDERABLES Sonam l Result from Last 3 Months or Most Recently Relevant to Health Maintenance Insurance [facility] Care Teams Supervisor Asphalt Paving Relationship Specialty Start Date End Date Delores Silva MD [address], [address] [facility] D/B/A: [facility] DIOR Roberts PCP - General Internal Medicine 02/09/22
--- OUTSIDE RECORDS SUMMARY | 2025-06-25 08:53 | XMS_ITS | Clinical Summary ---
Author Organization [employer] Address [address] [place] [address] [address] [place] [address] Care Team Providers Care Stained Glass Joiner Name Role Phone Unavailable Primary Care Provider [...] patient's age to complete this topic [place] [address] [place] [address] ACO
--- OUTSIDE RECORDS SUMMARY | 2025-06-25 08:53 | XMS_ITS | Clinical Summary ---
Author Organization [facility] Address [address] [facility] [address] [place] [address] Phone Care Team Providers Care Day Guard Name Role Phone Delores Mancia MD Primary Care Provid er Delores Mancia MD Unavailable [phone] Allergies Active Allergy Reactions Criticality Noted Date [...] topic Medical Devices Not on file [facility] [place] [facility] [place] [facility] Care Teams Day Guard Relationship Specialty Start Date End Date Delores Mancia MD [address] [place] [address] PCP - General Internal Medicine 07/07/23 Delores Mancia MD [address] [place] [address] 07/07/23 Additional Source Comments The information contained in this document represents components of the legal health record. It is not the complete legal health record.[facility]
--- OUTSIDE RECORDS SUMMARY | 2025-06-25 08:53 | XMS_ITS | Clinical Summary ---
Author Organization [facility] Prior to 12/07/[address] [place] [address] Care Team Providers Care Bacteriologist Dairy Name Role Phone Delores Mancia MD Primary [...] age to complete this topic Care Teams Bacteriologist Dairy Relationship Specialty Start Date End Date Delores Mancia MD [address] [place] [address] , [address] [facility] D/B/A: [facility] [place] [address] PCP - General Internal Medicine 12/13/23
--- OUTSIDE RECORDS SUMMARY | 2025-06-25 08:54 | XMS_ITS | Data Portability ---
Author Organization [facility]lee [address] Address [address] [place] [address] Assessment No assessment recorded. Plan of Treatment Reminders Order Date Submit Date Provider Last Modified By Organization Details Last Modified Time Details Appointments None recorded. Lab None recorded. Referral None recorded. Procedures None recorded. Surgeries None recorded. Imaging None recorded. Medication Orders mupirocin 2 % topical ointment 2023 024 [facility]/Pharmacy #[id number], [address] [place], [address], 4 18:36:48 cephalexin 500 mg capsule 2023 024 [facility]/Pharmacy #[id number], [address] [place], [address], 4 18:36:48 Patient TargetsNo targets recorded. Patient InstructionsNo instructions recorded. Reason for Referral None Reported. Problems Name Problem SNOMED Code Status Onset Date Resolution Date Notes Provider Name and Address Organization Details Recorded Time Lupus erythematosus 127872242 Active 2023 Melody Palmer null, PA - [facility] 4 17:11:28 Depressive disorder 96197900 Active 2023 Melody Palmer null, PA - [facility] 4 17:11:43 Anxiety 17830680 Active 2023 Melody Palmer null, PA - [facility] 4 17:11:52 Problem Notes None recorded. Medical Equipment None Reported. Allergies Allergen ID Allergen Name Allergen Category Reaction Reaction Severity Criticality Documentation Date Start Date Code Code System Note Provider Name and Address Organization Details Recorded Time 057581 metformin medicatio n hives mild Not available [...] weight Body temperature Respiratory rate Oxygen saturation Heart rate Systolic And Diastolic Provider Name and Address Organization Details Last Updated DateTime 4 162.56 cm 45.3 kg/m2 712442. 39 g 97.7 [degF] 18 /min 100 % 72 /min 146/88 mm[Hg] Melody Palmer PA - [facility] 17:15:27 Social History [...] Diagnosis SNOMED-CT Code Diagnosis ICD10 Code Diagnosis IMO Codes Diagnosis Note [id number] Eric Coto, JAMES [address] [place] [address] 10/07/2023 16:55:57 10/07/2023 17:37:11 Impetigo 73858881 L01.00 Impetigo (say im-puh-TY -go ) is [...] you can use an alcohol-ba sed hand etl programmer. Don't share items such as towels, sheets, [...] Joseph Member ID Guarantor Name 10/07/2023 1 [facility] PL[facility] (MEDICAID HMO) MISTY Vides [id number] Diane Vides 10/07/2023 1 [facility] (MEDICAID REPLACEMENT - HMO) Diane Vides [id number] Diane Peewee 10/07/2023 2 [place]: [facility] Diane Peewee [id number] Diane Peewee Notes Date Note Type Note Provider Name and Address Organization Details Recorded Time 10/07/2023 text/html UC Rash/Skin LesionReported by PatientHPIFor quality, patient reportsitchy,red, andspreading. For context, patient reportsother exposurebut reportsno new detergent or skin product,no recent change in medication,no exposure to hair dye,no expsoure to new clothes/jewelry,no recent travel,no recent illness,no pets/animals in home, andnot affiliated with chemicals/pesticides. For source of patient information, patient reportsinformation obtained from patientandpatient arrived at urgent care ambulatory(37-year-old female comes in stating that she has developed a dry crusty rash around left nostril at the opening involving the upper lip also for more than 2 to 3 days and is not getting better have some yellow discharge from it also.). For location, patient reportsfaceandlips. For severity, patient reportsmoderate. For duration, patient reports2 days. For alleviating factors, patient reportsnothing gives relief. For associated symptoms, patient reportsno feverandno fatigue. For treatment history, patient reportsno history of treatment. Eric Coto NP [address] [place], [address], PA - [facility] 10/07/2023 18:36:57 OBGyn Episode No OBEpisode recorded.
== END 2025-06-25 09:16 | disposition home or self-care (01) ==
LOC: HO.RHES 08:36
PROVIDERS: PCP Internal Medicine; Visit Provider Internal Medicine Rheumatology
DX: M32.9 Systemic lupus erythematosus, unspecified (principal); M79.7 Fibromyalgia; R80.9 Proteinuria, unspecified
CPT/HCPCS: 99214

== ENCOUNTER 2025-06-25 08:35 | Outpatient (REF) | payer OTHER, SELFPAY ==
[2025-06-25 14:11] LABS: MANUAL DIFF FLAG NO
[2025-06-25 14:14] LABS: Hematocrit 29.4 % (37.0-47.0); Hemoglobin 9.0 g/dl (12.0-16.0); Imm Gran Abs Auto 0.01 X10*3/uL (0.00-0.03); Imm Gran Pct Auto 0.2 % (0.0-0.4); Lymphocytes Absolute Auto 1.3 X10*3/uL (1.2-4.9); Mean Corpuscular HGB Conc 30.6 g/dl (31.0-35.0); Mean Corpuscular Hemoglobin 24.3 pg (27.0-33.0); Mean Corpuscular Volume 79.2 fL (80.0-98.0); NRBC Abs Auto 0.000 X10*3/uL (0.0-0.012); NRBC Pct Auto 0.0 /100WBC (0.0-0.2); Platelet Count 230 X10*3/uL (160-400); Red Blood Count 3.71 X10*6/uL (4.20-5.50); White Blood Count 4.5 X10*3/uL (4.8-10.8)
[2025-06-25 14:30] LABS: Appearance Urine Cloudy; Glucose Urine UA Negative (Negative); PH 6.0 (5.0-9.0); Specific Gravity - Urine 1.010 (1.005-1.025); UMIC TRIGGER UACC YES
[2025-06-25 14:37] LABS: UACC Culture Trigger YES
[2025-06-25 14:58] LABS: Alanine Aminotransferase 22 U/L (0-31); Aspartate Amino Transferase 27 U/L (5-31); Estimated Glomerular Filt Rate 57
[2025-06-25 16:14] LABS: Protein/Creatinine Ratio, Ur 0.22 (<0.2); Total Protein Urine Random 18 mg/dL (<12)
[2025-06-26 09:38] LABS: Iron 16 mcg/dL (30-160); Percent Iron Saturation 6 % (15-50); Total Iron Binding Capacity 275 mcg/dL (228-428); Unsaturated Iron Binding 259 ug/dL
== END 2025-06-25 08:36 | disposition home or self-care (01) ==
LOC: HO.HKASLDS 08:35
PROVIDERS: PCP Internal Medicine; Visit Provider Internal Medicine Rheumatology
DX: M32.9 Systemic lupus erythematosus, unspecified (principal); M79.7 Fibromyalgia; R80.9 Proteinuria, unspecified; Z01.84 Encounter for antibody response examination
CPT/HCPCS: 36415; 81001; 82565; 82570; 83540; 84156; 84450; 84460; 85025; 85652; 86140; 86160; 86225; 87086; 99212

== ENCOUNTER 2025-07-08 11:59 | Emergency (ER) | payer OTHER, SELFPAY ==
--- NOTE | 2025-07-08 13:00 | PC.NURSE ---
No answer to name for triage at 12:59pm.
== END 2025-07-08 15:00 | disposition left against medical advice (07) ==
PROVIDERS: Emergency Provider Emergency Medicine; PCP Internal Medicine
DX: M79.10 Myalgia, unspecified site (principal); Z53.21 Procedure and treatment not carried out due to patient leaving prior to being seen by health care provider
CPT/HCPCS: 99212

== ENCOUNTER 2025-07-08 12:26 | Outpatient (AMB) | payer OTHER, SELFPAY ==
--- OUTSIDE RECORDS SUMMARY | 2024-04-15 13:04 | XMS_ITS | Encounter Summary ---
Author Organization [facility] Address [address] [place] [address] Care Team Providers Care Nondestructive Tester Name Role Phone Delores Silva MD Primary Care Provider [phone] Encounter Details Date Type Department Care Team (Late Contact Info) Description 04/15/2024 2:04 PM EDT [...] 8:41 AM EDT documented in this encounter Progress Notes * Historical, Notes [...] 09/18/2025 11:30 AM EDT Nutrition Bariatric Surgery - [place] [address] [phone] [place] [phone] 09/30/2025 9:15 AM EDT Office Visit Bariatric Surgery [address] [phone] Ana Lilia Bruce, PA [address] [place] [phone] documented as of this encounter Visit Diagnoses Not on filedocumented in this encounter Care Teams Nondestructive Tester Relationship Specialty Start Date End Date Delores Silva MD [address] [place] [address] , [facility] [address] [facility] Physician Associ D/B/A: [facility]andra [facility] [place], [place] PCP - General Internal Medicine 02/09/22 documented as of this encounter
[2025-07-08 12:46] VITALS: BP 120/70; PULSE 74; TEMP 36.7; O2SAT 95; BMI 35.7
--- NOTE | 2025-07-08 12:46 | AM.OFFWIN_ITS ---
Intake Vital Signs 07/08/25 12:46 Height 5 ft 4 in Weight 208 lb BMI 35.7 BP 120/70 Blood Pressure Location Lt brachial Position Sitting Pulse 74 Pulse Source Pulse Oximeter Temp 98.1 F Temp Source Oral Pulse Oximetry (%) 95 Oxygen Delivery Method Room Air Intake Visit Reasons: EP-body ache, headaches, chills, Intake Note: Patient presents c/o body aches, cold, sinus pressure since yesterday. Patient Tobacco Use Status: Never used Tobacco Allergies metformin (METFORMIN) Allergy (Intermediate, Verified 07/08/25 12:49) INFLAMMED GUMS, red gums, redness of gums doxycycline Adverse Reaction (Intermediate, Verified 07/08/25 12:49) Itching HPI HPI Comments History of Present Illness Details History - The patient is a 39-year-old female pr esenting with body aches, feeling cold, and rhinorrhea x 1 day. - Symptoms started the previous night an d include body aches, subjective chills without fever, rhinorrhea, and head congestion, which she describes as sinus- related. - Her past medical history is significan t for asthma, for which she has an inhaler at home, and systemic lupus erythematosus (SLE), for which she takes Plaquenil. - She has an allergy to Motrin. - Recent blood work from two weeks ago r evealed very low iron levels, and she is awaiting a prescription from her primary care provider. She has called but hasn't heard back and is asking me to look into it for her. [facility]LY [facility], [facility] Medical History Osteoarthritis of knees, bilateral Hyperparathyroidism Vaginal discharge Physical exam Open wound of thumb Lupus Mild recurrent major depression Morbid obesity with BMI of 40.0-44.9, adult Vitamin D deficiency BMI 38.0-38.9,adult Intestinal malabsorption following gastrectomy Preeclampsia Obesity (BMI 30-39.9) Knee pain Hypertension Depression Proteinuria Autoimmune thyroiditis SLE (systemic lupus erythematosus related syndrome) Surgical History History of foot surgery History of open reduction and internal fixation (ORIF) procedure History of sleeve gastrectomy Status post biopsy of kidney Family History Father Asthma Mother No problems noted. Brother No problems noted. Brother No problems noted. Sister No problems noted. Social History Housing: Apartment Alcohol intake: never Patient Tobacco Use Status: Never used Tobacco e-Cigarette/Vaping Use: Never Used Second Hand Smoke Exposure: No service: No Current occupational status: unemployed Current occupational exposures/hazards: No Cognitive needs: No Hearing needs: No Vision needs: No Female Reproductive History Menstrual Age of Menarche: 11 Review of Systems Narrative Review of Systems - General: Reports body aches and feeling cold. - Fever/Chills: Denies fever, reports subjective chills. - HEENT: Reports rhinorrhea and sinus congestion. - Respiratory: Denies cough, shortness of breath, and wheezing. All systems reviewed and are unremarkable except as noted in HPI Physical Exam Exam Exam: Physical Exam General: Cooperative, healthy appearing, comfortable and no acute distress Orientation/consciousness: Patient oriented x3 Limitations: No limitations Head: Normal to inspection Ears: Hearing grossly normal bilaterally, external ears normal, EAC normal on left, cerumen impacted on right; TM normal on left, unable to visulaize on right Nose: Normal external nose present, Normal nares present and runny nose present Face and sinus: Normal facial exam and sinuses slightly tender Mouth: Normal oral and palatal mucosa present and moist mucous membranes Throat: tonsils normal, no exudates, uvula midline, posterior oropharynx erythema Eyes: Appearance normal, both eyes and all related structures Neck: Normal visual inspection, full ROM Respiratory: Clear to auscultation bilaterally. Normal respiratory effort, able to speak in complete sentences, no respiratory distress, not tachypneic, no tripod positioning and no use of accessory muscles Cardiovascular: Regular rate and rhythm. Normal S1 and S2 Skin: No rashes or lesions noted Neuro: Patient oriented x3 Extremities: Normal to inspection and Yes no clubbing, cyanosis or edema Vital Signs: Last Vital Signs Temp 98.1 F 07/08/25 12:46 Pulse 74 07/08/25 12:46 BP 120/70 07/08/25 12:46 Pulse Ox 95 07/08/25 12:46 Oxygen Delivery Method Room Air 07/08/25 12:46 BMI result Body Mass Index 35.7 Assessment & Plan Assessment & Plan (1) Acute viral syndrome: Code(s): B34.9 - Viral infection, unspecified Plan: Patient was informed and verbally consented to the use of an ambient scribe for clinic note documentation during this visit. - VSS, pt well appearing and PE unremarkable. - The patient was swabbed for influenza, COVID-19, and RSV. - A prescription for Tamiflu will be sent if the influenza test is positive, and Paxlovid will be sent if the COVID-19 test is positive. - The patient will be contacted with the results later today or tomorrow morning. - Recommended symptomatic treatment with Tylenol and other oick-gro-ldqtzhf remedies. Iron Deficiency - A message was sent to Dr. Herzog to request an iron prescription for the patient, as it was noted she has low iron from recent lab work. Systemic Lupus Erythematosus - Advised to monitor for any worsening of her lupus symptoms while ill and to maintain contact with her lupus specialist. Orders: Orders SARS-CoV2/FLU/RSV Today R09.89 - Other specified symptoms and signs involving the circulatory and respiratory systems Coding Level of Care Code Est Pt Level 3 (11639) Diagnoses Acute viral syndrome B34.9
--- OUTSIDE RECORDS SUMMARY | 2025-07-08 16:22 | XMS_ITS | Clinical Summary ---
Author Organization [facility] Address [address] [facility] [address] [place] [phone] Phone Care Team Providers Care Banana Carrier Name Role Phone Delores Mancia MD Primary Care Provid er Delores Mancia MD Unavailable [phone] Allergies Active Allergy Reactions Criticality Noted Date [...] topic Medical Devices Not on file [facility] [place] [facility] [place] [facility] Care Teams Banana Carrier Relationship Specialty Start Date End Date Delores Mancia MD [address] [place] [address] PCP - General Internal Medicine 07/07/23 Delores Mancia MD [address] [place] [address] 07/07/23 Additional Source Comments The information contained in this document represents components of the legal health record. It is not the complete legal health record.[facility]
--- OUTSIDE RECORDS SUMMARY | 2025-07-08 16:22 | XMS_ITS | Data Portability ---
Author Organization [facility] [address] Address [address] [place] [address] Assessment No assessment recorded. Plan of Treatment Reminders Order Date Submit Date Provider Last Modified By Organization Details Last Modified Time Details Appointments None recorded. Lab None recorded. Referral None recorded. Procedures None recorded. Surgeries None recorded. Imaging None recorded. Medication Orders mupirocin 2 % topical ointment 2023 024 [facility]/Pharmacy #[id number], [address] [place], [address], 4 18:36:48 cephalexin 500 mg capsule 2023 024 [facility]/Pharmacy #[id number], [address] [place], [address], 4 18:36:48 Patient TargetsNo targets recorded. Patient InstructionsNo instructions recorded. Reason for Referral None Reported. Problems Name Problem SNOMED Code Status Onset Date Resolution Date Notes Provider Name and Address Organization Details Recorded Time Lupus erythematosus 106499535 Active 2023 Melody Palmer null, PA - [facility] 4 17:11:28 Depressive disorder 11486440 Active 2023 Melody Palmer null, PA - [facility] 4 17:11:43 Anxiety 11608057 Active 2023 Melody Palmer null, PA - [facility] 4 17:11:52 Problem Notes None recorded. Medical Equipment None Reported. Allergies Allergen ID Allergen Name Allergen Category Reaction Reaction Severity Criticality Documentation Date Start Date Code Code System Note Provider Name and Address Organization Details Recorded Time 306279 metformin medicatio n hives mild Not available [...] Updated DateTime 4 162.56 cm 45.3 kg/m2 969667. 39 g 97.7 [degF] 18 /min 100 [...] ICD10 Code Diagnosis IMO Codes Diagnosis Note [id number] Eric Coto, JAMES [address] [place] [address] 10/07/2023 16:55:57 10/07/2023 17:37:11 Impetigo 55267563 L01.00 Impetigo (say im-puh-TY -go ) is [...] you can use an alcohol-ba sed hand transfer machine operator. Don't share items such as towels, sheets, [...] Joseph Member ID Guarantor Name 10/07/2023 1 [facility] PL[facility] (MEDICAID HMO) MISTY Vides [id number] Diane Vides 10/07/2023 1 [facility] (MEDICAID REPLACEMENT - HMO) Diane Vides [id number] Diane Peewee 10/07/2023 2 MEDICAID-ID: [facility] Diane Peewee [id number] Diane Peewee Notes Date Note Type Note [...] Coto NP [address] [place], [address], PA - [facility] 10/07/2023 18:36:57 OBGyn Episode No OBEpisode recorded.
--- OUTSIDE RECORDS SUMMARY | 2025-07-08 16:22 | XMS_ITS | Clinical Summary ---
Author Organization [facility] Address [address] [place] [address] Phone Care Team Providers Care Decorating Machine Tender Name Role Phone Delores Silva MD Primary Care Provider [phone] Allergies Active Allergy Reactions Criticality Noted Date [...] AM EDT Office Visit Bariatric Surgery - [address] [address] Ana Lilia Bruce PA Class [...] Arthritis Joint pain Lupus (systemic lupus erythematosus) (CMS/[facility] V2 4, CMS/[facility] V28) Social History Tobacco Use Types Packs/Day [...] 11:30 AM EDT Nutrition Bariatric Surgery - [address] [address] [place] [address] 09/30/2025 9:15 AM EDT Office Visit Bariatric Surgery [address] [address] Ana Lilia Bruce, PA [address] [place] [phone] Health Maintenance Due Date Last Done Comments [...] this topic Medical Devices Implanted Type Area Acid Correction Hand Device Identifier Shelf Expiration Date Model / [...] LAB CHEMISTRY METHOD 04/28/2025 5:38 PM EDT [facility] TIBC 332 250 - 450 mcg/dL LAB CHEMISTRY METHOD 04/28/2025 5:38 PM EDT [facility] Iron Saturation 12(L) 15 - 50 % LAB CHEMISTRY METHOD 04/28/2025 5:38 PM EDT [facility] Blood Venous blood specimen / Unknown Venipuncture / Unknown 04/28/2025 10:37 AM EDT 04/28/2025 10:37 AM EDT us Ana Lilia [facility] LAB BLOOD ORDERABLES Final R esult [facility] [address] [place] [address], * Copper, serum (04/28/2025 10:37 AM EDT) Copper 1144 810 - 1990 ug/L 05/02/2025 8:22 AM EDT [facility] Comment: Copper values may be elevated to twice the normal levels in . Elevated results may be due to sample collected in a non-certified trace element-free tube. This test was developed and the performance characteristics determined by [facility]. It has not been cleared or approved by the FDA. The laboratory is regulated under CLIA as qualified to perform high-complexity testing. This test is used for patient testing purposes. It should not be regarded as investigational or for research. Test performed at [facility], [address] , [place] [address] Ann-Marie Kerr MD, PhD - Counter Waitress/Waiter Blood Venous blood specimen / Unknown Venipuncture / Unknown 04/28/2025 10:37 AM EDT 04/28/2025 10:37 AM EDT Ana Lilia [facility] LAB BLOOD ORDERABLES Final R esult Performing Organization Address [facility] Co de Phone Number [facility] [address] [place] [address] * Zinc (04/28/2025 10:37 AM EDT) Zinc 77 60 - 130 ug/dL 05/01/2025 11:[address] [facility] Comment: Elevated results may be due to sample collected in a non-certified trace element-free tube. This test was developed and the performance characteristics determined by [facility]. It has not been cleared or approved by the FDA. The laboratory is regulated under CLIA as qualified to perform high-complexity testing. This test is used for patient testing purposes. It should not be regarded as investigational or for research. Test performed at [facility], [address] , [place] [address] Ann-Marie Kerr MD, PhD - Counter Waitress/Waiter Blood Venous blood specimen / Unknown Venipuncture / Unknown 04/28/2025 10:37 AM EDT 04/28/2025 10:37 AM EDT Ana Lilia [facility] LAB BLOOD ORDERABLES Final R esult Performing Organization Address City/[facility]/ZIP Co de Phone Number [facility] [address] [place] [address] * Vitamin A (04/28/2025 10:37 AM EDT) Vitamin A 43 38 - 106 ug/dL 05/02/2025 5:[address] [facility] Comment: This test was developed and the performance characteristics determined by [facility]. It has not been cleared or approved by the FDA. The laboratory is regulated under CLIA as qualified to perform high-complexity testing. This test is used for patient testing purposes. It should not be regarded as investigational or for research. Test performed at [facility], [address] , [place] [address] Ann-Marie Kerr MD, PhD - Counter Waitress/Waiter Blood Venous blood specimen / Unknown Venipuncture / Unknown 04/28/2025 10:37 AM EDT 04/28/2025 10:37 AM EDT Ana Lilia [facility] LAB BLOOD ORDERABLES Final R esult [facility] [address] [place] [address] * Selenium serum (04/28/2025 10:37 AM EDT) Selenium 128 63 - 160 mcg/L 05/02/2025 8:[address] [facility] Comment: This test was developed and its analytical performance characteristics have been determined by [facility] [place] [place]. It has not been cleared or approved by the U.S. Food and Drug Administration. This assay has been validated pursuant to the CLIA regulations and is used for clinical purposes. Test Performed by [facility], [facility] [place], [address] [place] [address] Edgard Dejesus M.D., Ph.D., Director of Laboratories , CLIA [id number] Blood Venous blood specimen / Unknown Venipuncture / Unknown 04/28/2025 10:37 AM EDT 04/28/2025 10:37 AM EDT Ana Lilia [facility] LAB BLOOD ORDERABLES Final R esult Performing Organization Address City/[facility]/ZIP Co de Phone Number [facility] [address] [place] [address] * Vitamin D 25 hydroxy (04/28/2025 10:37 AM EDT) Pathologist [facility] Vit D, 25-Hydroxy 35.2 30.0 - 80.0 ng/mL LAB CHEMISTRY METHOD 04/28/2025 2:49 PM EDT [facility] Blood Venous blood specimen / Unknown Venipuncture / Unknown 04/28/2025 10:37 AM EDT 04/28/2025 10:37 AM EDT Ana Lilia [facility] LAB BLOOD ORDERABLES Final R esult Performing Organization Address [facility] Co de Phone Number [facility] [address] [place] [address], [place] [phone] * (ABNORMAL) Vitamin B6 (04/28/2025 10:37 AM EDT) [facility] Vitamin B6 (Pyridoxine) Level 4(L) 5 - 50 ug/L 05/02/2025 7:42 AM EDT [facility] Comment: This test was developed and the performance characteristics determined by [facility]. It has not been cleared or approved by the FDA. The laboratory is regulated under CLIA as qualified to perform high-complexity testing. This test is used for patient testing purposes. It should not be regarded as investigational or for research. Test performed at [facility], [address] , [place] [address] Ann-Marie Kerr MD, PhD - Counter Waitress/Waiter Blood Venous blood specimen / Unknown Venipuncture / Unknown 04/28/2025 10:37 AM EDT 04/28/2025 10:37 AM EDT Ana Lilia [facility] LAB BLOOD ORDERABLES Final R esult Performing Organization Address City/[facility]/ZIP Co de Phone Number [facility] [address] [place] [address] * Folate (04/28/2025 10:37 AM EDT) [facility] Folate 10.2 2.8 - 17.0 ng/ml LAB CHEMISTRY METHOD 04/28/2025 5:38 PM EDT [facility] Blood Venous blood specimen / Unknown Venipuncture / Unknown 04/28/2025 10:37 AM EDT 04/28/2025 10:37 AM EDT Ana Lilia [facility] LAB BLOOD ORDERABLES Final R esult Performing Organization Address City/[facility]/ZIP Co de Phone Number [facility] [address] [place] [address], [place] [phone] * (ABNORMAL) Vitamin B12 (04/28/2025 10:37 AM EDT) [facility] Vitamin B-12 191(L) 250 - 900 pcg/mL LAB CHEMISTRY METHOD 04/28/2025 5:43 PM EDT [facility] Blood Venous blood specimen / Unknown Venipuncture / Unknown 04/28/2025 10:37 AM EDT 04/28/2025 10:37 AM EDT us Ana Lilia [facility] LAB BLOOD ORDERABLES Final R esult [facility] [address] [place] [address], [place] [phone] * (ABNORMAL) Comprehensive metabolic panel (04/28/2025 10:37 AM EDT) [facility] Sodium 140 133 - 145 mmol/L LAB CHEMISTRY METHOD 04/28/2025 5:38 PM EDT [facility] Potassium 4.6 3.5 - 5.5 mmol/L LAB CHEMISTRY METHOD 04/28/2025 5:38 PM EDT [facility] Chloride 111(H) 96 - 110 mmol/L LAB CHEMISTRY METHOD 04/28/2025 5:38 PM [facility] CO2 24 21 - 32 mmol/L LAB CHEMISTRY METHOD 04/28/2025 5:38 PM [facility] Anion Gap 5 3 - 11 LAB CHEMISTRY METHOD 04/28/2025 5:38 PM [facility] Glucose 76 70 - 100 mg/dL LAB CHEMISTRY METHOD 04/28/2025 5:38 PM [facility] BUN 16 5 - 25 mg/dL LAB CHEMISTRY METHOD 04/28/2025 5:38 PM [facility] Creatinine 1.29(H) 0.50 - 1.10 mg/dL LAB CHEMISTRY METHOD 04/28/2025 5:38 PM [facility] eGFR 54(L) >=60 mL/min/1. 73m2 LAB CHEMISTRY METHOD 04/28/2025 5:38 PM [facility] Comment:Calculation based on the Chronic Kidney Disease Epidemiology Collaboration (CKD-EPI) equation refit without adjustment for race. BUN/Creatinine Ratio 12.4 LAB CHEMISTRY METHOD 04/28/2025 5:38 PM [facility] Calcium 8.7 8.5 - 10.5 mg/dL LAB CHEMISTRY METHOD 04/28/2025 5:38 PM [facility] AST (SGOT) 21 10 - 42 unit/L LAB CHEMISTRY METHOD 04/28/2025 5:38 PM [facility] ALT (SGPT) 26 10 - 60 unit/L LAB CHEMISTRY METHOD 04/28/2025 5:38 PM [facility] Alkaline Phosphatase 171(H) 42 - 121 unit/L LAB CHEMISTRY METHOD 04/28/2025 5:38 PM [facility] Total Protein 6.5 6.0 - 8.0 g/dL LAB CHEMISTRY METHOD 04/28/2025 5:38 PM EDT [facility] Albumin 3.2 3.2 - 5.0 g/dL LAB CHEMISTRY METHOD 04/28/2025 5:38 PM EDT [facility] Total Bilirubin 0.3 0.0 - 1.4 mg/dL LAB CHEMISTRY METHOD 04/28/2025 5:38 PM EDT [facility] Blood Venous blood specimen / Unknown Venipuncture / Unknown 04/28/2025 10:37 AM EDT 04/28/2025 10:37 AM EDT Ana Lilia [facility] LAB BLOOD ORDERABLES Final R esult [facility] [address] [place] [address], [place] [phone] * Lipid panel (09/11/2023) LDL/HDL Ratio 3 0 - 4 Triglycerides 129 0 - 150 mg/dL Cholesterol 159 0 - 200 mg/dL HDL 47 >=40 mg/dL LDL Cholesterol 87 0 - 100 mg/dL Blood Venous blood specimen / Unknown Historical Provider LAB BLOOD ORDERABLES Sonam l Result from Last 3 Months or Most Recently Relevant to Health Maintenance Insurance [facility] Care Teams Decorating Machine Tender Relationship Specialty Start Date End Date Delores Silva MD [address], [address] [facility] D[facility] DIOR Roberts PCP - General Internal Medicine 02/09/22
--- OUTSIDE RECORDS SUMMARY | 2025-07-08 16:22 | XMS_ITS | Clinical Summary ---
Author Organization [employer] Address [address] [place] [address] [address] [place] [address] Care Team Providers Care Buffer Operator Name Role Phone Unavailable Primary Care [...] patient's age to complete this topic Insurance [place] [address] [address] ACO
--- OUTSIDE RECORDS SUMMARY | 2025-07-08 16:22 | XMS_ITS | Clinical Summary ---
Author Organization [facility] Address [address] [address] Phone Care Team Providers Care Deputy Program Manager Name Role Phone Delores Mancia MD Primary Care Provider [phone] Allergies Active Allergy Reactions Criticality Noted Date [...] Office Visit [facility] [address] [place] [phone] Darci Gamble MD Stage 3a chronic kidney disease (HCC) (Primary Dx); Hypertensive disorder from Last 3 Months Immunizations Immunization Administration [...] Visit [facility] [address] [place] [place] [address] Darci Gamble MD [address] [facility] [address] [place] [address] Health Maintenance Due Date Last [...] MD LAB URINE ORDERABLES Final Re sult [place] See order comments [place] [address] * (ABNORMAL) Albumin, urine, random (04/25/2025 9:18 [...] 9:18 AM EDT 04/25/2025 9:18 AM EDT Darci Gamble MD LAB URINE ORDERABLES Final Re sult Performing Organization Address [facility] Co de Phone Number See order comments [place] [address] * (ABNORMAL) Urinalysis with microscopic (04/25/2025 9:18 AM EDT) Color Urine Yellow See orde r comments Appearance Urine Clear See order comments pH Urine 6.0 5.0 - 9.0 See order comments Glucose Urine Negative Negative mg/dL See order comments Blood, Urine Trace(A) Negative See ord er comments Specific [place] Urine 1.010 1.005 - 1.025 See order [...] ORDERABLES Final Re sult Performing Organization Address [facility] Co de Phone Number See order comments [place] [address] * Creatinine (04/25/2025 8:43 AM EDT) Creatinine Serum 1.13 0.5 - 1.4 mg/dL See order comments eGFR (Calc) 53 See orde r comments Comment: Chronic Kidney Disease: Estimated GFR < 60 mL/min/1.73m2 Severe Kidney Disease: Estimated GFR < 15 mL/min/1.73m2 04/25/2025 8:43 AM EDT 04/25/2025 8:43 AM EDT us Darci Gamble MD LAB BLOOD ORDERABLES Final Re sult Performing Organization Address [facility] Phone Number [place] See order comments [place] [address] * (ABNORMAL) BUN (04/25/2025 8:43 AM EDT) BUN 18(H) 9 - 16 mg/dL See order comments 04/25/2025 8:43 AM EDT 04/25/2025 8:43 AM EDT us Darci Gamble MD LAB BLOOD ORDERABLES Final Re sult Performing Organization Address [facility] Phone Number [place] See order comments [place] [address] * Calcium (04/25/2025 8:43 AM EDT) Calcium 8.6 8.4 - 10.2 mg/dL See order comments 04/25/2025 8:43 AM EDT 04/25/2025 8:43 AM EDT us Darci Gamble MD LAB BLOOD ORDERABLES Final Re sult Performing Organization Address [facility] Phone Number [place] See order comments [place] [address] * (ABNORMAL) Electrolyte panel (04/25/2025 8:43 AM [...] order comments [place] [address] from Last 3 Months Insurance [facility] Medicaid [facility] Medicaid Care Teams Deputy Program Manager Relationship Specialty Start Date End Date Delores Mancia MD [address] [place], [place] PCP - General 07/20/20
--- OUTSIDE RECORDS SUMMARY | 2025-07-08 16:22 | XMS_ITS | Clinical Summary ---
Author Organization [facility] to 12[facility] [place] [address] Care Team Providers Care Wheel Cleaner Name Role Phone Delores Mancia MD Primary [...] age to complete this topic Care Teams Wheel Cleaner Relationship Specialty Start Date End Date Delores Mancia MD [address] [place] [address] , [address] [facility] D[facility] [place] [address] PCP - General Internal Medicine 12/13/23
== END 2025-07-08 13:49 | disposition home or self-care (01) ==
PROVIDERS: PCP Internal Medicine; Visit Provider Physician Assistant
DX: B34.9 Viral infection, unspecified (principal)

== ENCOUNTER 2025-07-08 13:07 | Outpatient (REF) | payer OTHER, SELFPAY ==
[2025-07-08 18:08] LABS: Resp Syncy Virus RNA Qual PCR NEGATIVE (Negative); SARS COV2 PCR INHOUSE NEGATIVE (Negative)
== END 2025-07-08 13:08 | disposition home or self-care (01) ==
LOC: HO.LAB 13:07
PROVIDERS: Visit Provider Physician Assistant
DX: R09.89 Other specified symptoms and signs involving the circulatory and respiratory systems (principal)
CPT/HCPCS: 87637